=== PATIENT | male | born 1960 | race Caucasian/White ===

== ENCOUNTER 2023-11-23 03:22 | Emergency (ER) | payer OTHER, SELFPAY ==
[2023-11-23 03:26] VITALS: BP 218/102; PULSE 81; RESP 16; TEMP 36.6; O2SAT 97; BMI 27.3
--- NOTE | 2023-11-23 03:39 | ED.MALEGU1 ---
HPI - Male Genitourinary General Chief complaint: Urogenital-Male Stated complaint: URINARY ISSUES Time Seen by Provider: 11/23/23 03:35 Source: patient Mode of arrival: walk-in Limitations: no limitations History of Present Illness HPI Narrative: patient states he has been having problems urinating for the past week. passed blood . Seen by urology and prescribed flomax that seem to help. Tonight urine stream stop but then returned. He then drank water wanting to flush himself but states that was a mistake because now he still can't go and his abdomen is becoming uncomfortable. No vomiting or fever Related Data Home Medications Medication Instructions Recorded Confirmed allopurinol 300 mg tablet 300 mg PO DAILY 11/23/23 11/23/23 omeprazole 40 mg capsule,delayed 40 mg PO DAILY 11/23/23 11/23/23 release sildenafil 100 mg tablet 100 mg PO PRN sexual activity 11/23/23 tamsulosin 0.4 mg capsule 0.4 mg PO Q24H 11/23/23 11/23/23 terbinafine HCl 250 mg tablet 250 mg PO DAILY 11/23/23 11/23/23 vibegron 75 mg tablet (Gemtesa) 75 mg PO DAILY 11/23/23 11/23/23 Allergies Allergy/AdvReac Type Severity Reaction Status Date / Time No Known Drug Allergies Allergy Verified 11/23/23 03:32 Review of Systems ROS Status of ROS 10 or more systems reviewed and unremarkable except as noted in history and below PFSH PFSH Social History Smoking status: Former smoker Exam Constitutional Vital Signs, click to edit/add: Last Vital Signs Temp 97.9 F 11/23/23 03:26 Pulse 81 11/23/23 03:26 Resp 16 11/23/23 03:26 BP 218/102 H 11/23/23 03:26 Pulse Ox 97 11/23/23 03:26 O2 Del Method Room Air 11/23/23 03:26 Common normals: no apparent distress, average body habitus, oriented x3, no limitations, healthy appearing, alert and well nourished Eye Common normals: EOMs intact bilaterally and conjunctivae normal Respiratory Common normals: normal respiratory effort, no retractions, no use of accessory muscles and clear to auscultation bilaterally Cardio Common normals: regular rate, regular rhythm, S1 normal heart sound and S2 normal heart sound GI Common normals: Normal to inspection, nondistended, normoactive bowel sounds present and soft to palpation Other: suprapubic tenderness Extremity Common normals: normal to inspection and full ROM Neuro Common normals: oriented x3, CN's II-XII intact bilaterally, moves all extremities and no focal motor deficits Psych Appearance: grossly normal Course Vital Signs Vital signs: Vital Signs Temperature 97.9 F 11/23/23 03:26 Pulse Rate 81 11/23/23 03:26 Respiratory Rate 16 11/23/23 03:26 Blood Pressure 218/102 H 11/23/23 03:26 Pulse Oximetry 97 11/23/23 03:26 Oxygen Delivery Method Room Air 11/23/23 03:26 Temperature 97.9 F 11/23/23 03:26 Pulse Rate 81 11/23/23 03:26 Respiratory Rate 16 11/23/23 03:26 Blood Pressure 218/102 H 11/23/23 03:26 Pulse Oximetry 97 11/23/23 03:26 Oxygen Delivery Method Room Air 11/23/23 03:26 MDM - Male Genitourinary MDM Narrative Medical decision making narrative: patient followed by Urology. Presents with acute urinary retention. escamilla placed by nursing. UA without evidence of infection,. Patient discharged with catheter in place and is to follow up with his urologist Lab Data Labs: Lab Results 11/23/23 Range/Units 04:00 Urine Color Brown A (YELLOW) Urine Clarity Clear (CLEAR) Urine pH 7.5 (5.0-9.0) Ur Specific [place] <=1.005 A (1.005-1.025) Urine Protein 100 A (NEG/TRACE) mg/dL Urine Glucose (UA) Negative (NEGATIVE) mg/dL Urine Ketones Negative (NEGATIVE) mg/dL Urine Occult Blood Large A (NEGATIVE) Urine Nitrite Negative (NEGATIVE) Urine Bilirubin Negative (NEGATIVE) Urine Urobilinogen 0.2 (0.2-1.0) EU/dL Ur Leukocyte Esterase Trace A (NEGATIVE) Urine RBC 50-75 A (0-2) #/HPF Urine WBC 0-2 A (NONE SEEN) #/HPF Ur Squamous Epith Cells None seen (NONE/RARE) #/LPF Urine Crystals None seen (None Seen) #/HPF Urine Bacteria None seen (NONE SEEN) #/HPF Urine Casts None seen (NONE SEEN) #/LPF Urine Mucus None seen (NONE SEEN) Discharge Plan Discharge Chief Complaint: Urogenital-Male Clinical Impression: Acute urinary retention Patient Disposition: Home, Self-Care Prescriptions / Home Meds: No Action allopurinol 300 mg tablet 300 mg PO DAILY omeprazole 40 mg capsule,delayed release(DR/EC) 40 mg PO DAILY sildenafil 100 mg tablet 100 mg PO PRN (Reason: sexual activity) tamsulosin 0.4 mg capsule 0.4 mg PO Q24H terbinafine HCl 250 mg tablet 250 mg PO DAILY Gemtesa 75 mg tablet 75 mg PO DAILY Instructions: Urinary Retention in Men (ED) Additional Instructions: call Urology for appointment this week Stand Alone Forms: Portal Instructions Referrals: Thomas De Santiago MD [Primary Care Provider] - 1 week
[2023-11-23] MEDS: LIDOCAINE 2% JELLY 10 ML UR (04:08)
[2023-11-23 04:09] LABS: Bilirubin Urine NEGATIVE (NEGATIVE); Blood Urine LARGE (NEGATIVE); Clarity Urine CLEAR (CLEAR); Color Urine BROWN (YELLOW); Glucose Urine UA NEGATIVE (NEGATIVE); Ketones Urine NEGATIVE (NEGATIVE); Leukocyte Esterase Urine TRACE (NEGATIVE); Nitrite Urine NEGATIVE (NEGATIVE); Protein Urine 100 mg/dL (NEG/TRACE); Specific Gravity Urine <=1.005 (1.005-1.025); Urobilinogen Urine 0.2 EU/dL (0.2-1.0); pH Urine 7.5 (5.0-9.0)
[2023-11-23 04:11] LABS: Urine Microscopic Indicated YES
[2023-11-23 04:15] LABS: Bacteria Urine NONE SEEN #/HPF (NONE SEEN); Cast Seen? NONE SEEN #/LPF (NONE SEEN); Crystals Seen? None Seen #/HPF (None Seen); Mucus Urine NONE SEEN (NONE SEEN); RBC Urine 50-75 #/HPF (0-2); Squamous Epithelial Cell Urine NONE SEEN #/LPF (NONE/RARE); WBC Urine 0-2 #/HPF (NONE SEEN)
--- NOTE | 2023-11-23 04:21 | PC.NURSE ---
patient was bladder scanned upon arrival to ED. scan showed nearly 800ml. Initial output of escamilla was 1100ml clear, red urine with occasional small clots. Sample was obtained and sent to lab.
[2023-11-23 04:52] VITALS: BP 151/90
== END 2023-11-23 04:55 | disposition home or self-care (01) ==
PROVIDERS: Emergency Provider Internal Medicine; PCP Family Medicine
DX: R33.9 Retention of urine, unspecified (principal); Z79.899 Other long term (current) drug therapy; Z87.891 Personal history of nicotine dependence
CPT/HCPCS: 51702; 51798; 81001; 99284

== ENCOUNTER 2023-12-14 07:10 | Outpatient (OUT) | payer OTHER, SELFPAY ==
--- OUTSIDE RECORDS SUMMARY | 2023-12-11 08:46 | XMS_ITS | CCD ---
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 Phone ARIE MARYLIN Unavailable Unavailable ARIE, MARYLIN Unavailable Unavailable ARIE, MARYLIN Unavailable Unavailable THOMAS LAMAR Unavailable Unavailable THOMAS LAMAR Primary Care Unavailable ESTEFANI, DAVEY Admitting Unavailable JARA, DAVEY Consulting Unavailable JARA, DAVEY Attending Unavailable THOMAS LAMRA Consulting Unavailable THOMAS LAMAR Attending Unavailable THOMAS LAMAR Admitting Unavailable DANICA MUNROE Admitting Unavailable DANICA MUNROE Consulting Unavailable DANICA MUNROE Attending Unavailable Thomas Lamar Primary Care Physician THOMAS LAMAR Primary Care Unavailable AMRIK MUNROE Attending Unavailable Orzech, Jerica X Admitting Unavailable Orzoraida, Jerica Ojeda Attending Unavailable Rafael Powell Attending Unavailable SALAMDanny Attending Unavailable Rafael Powell Referring Unavailable Garima Eastman Attending Unavailable JARA, Davey Hoover Attending Unavailable Orzech, Jerica X Attending Unavailable JARA, Davey R Attending Unavailable JARA, Davey R Attending Unavailable JARA, Davey R Attending Unavailable JARA, Davey R Attending Unavailable SALAMDanny Admitting Unavailable SALAM, Danny Attending Unavailable SALAM, Delgado Referring Unavailable JARA, Davey R Admitting Unavailable JARA, Davey R Attending Unavailable ROSALINDA CHAPMAN Admitting Unavailable ROSALINDA CHAPMAN Attending Unavailable Allergies Allergy Classification Reported Allergen(s) Allergy Type Date of Onset Reaction(s) Facility (2 sources) Ciprofloxacin; Translations: [ciprofloxacin] Drug Allergy Unknown [facility] Medications Current Medications Medication Drug Class(es) Dates Sig (Normalized) Sig (Original) aspirin 81 mg oral tablet (9 sources) Platelet Aggregation Inhibitor, Nonsteroidal Anti-inflammatory Drug Start: 08-07-2019 take 1 tablet by mouth once daily aspirin 81 mg oral tablet 81 mg = 1 tab(s), Oral, Daily Start Date: 08/07/19 Status: Ordered 24 hr mirabegron 50 mg extended release oral tablet (2 sources) beta3-Adrenergic Agonist Start: 04-27-2023 take 1 tablet by mouth once daily Myrbetriq 50 mg oral tablet, extended release 50 mg = 1 tab(s), Oral, Daily, # 90 tab(s), Refills(s) 3, Pharmacy: [facility], 178, cm, 02/18/23 13:55:00 EDT, Height/Length Dosing, 86.5, kg, 02/18/23 13:55:00 EDT, Weight Dosing Start Date: 04/27/23 Status: Ordered Multivitamin preparation (6 sources) Start: 09-24-2023 multivitamin Refill(s) 0 Start Date: 09/24/23 Status: Ordered omeprazole 40 mg delayed release oral capsule (2 sources) Proton Pump Inhibitor Start: 05-05-2023 take 1 capsule by mouth once daily omeprazole 40 mg Cap-DR 40 mg = 1 cap(s), Oral, Daily, # 30 cap(s), Refills(s) 2, [id number] 178, cm, 05/05/23 8:17:00 EDT, Height/Length Dosing, 87, kg, 05/05/23 8:17:00 EDT, Weight Dosing Start Date: 05/05/23 Status: Ordered polyethylene glycol 3350 917333 mg / potassium chloride 1480 mg / sodium bicarbonate 5720 mg / sodium chloride 00821 mg powder for oral solution (2 sources) Osmotic Laxative Start: 07-12-2023 take 2 doses by mouth every other day NuLYTELY Jama oral powder for reconstitution See Instructions, 2 EA, Refill(s) 0, 2 day colon prep., [id number] 178, cm, 07/12/23 14:08:00 EDT, Height/Length Dosing, 87.5, kg, 07/12/23 14:08:00 EDT, Weight Dosing Start Date: 07/12/23 Status: Ordered Start: 05-05-2023 NuLYTELY Cherr y oral powder for reconstitution See Instructions, 1 EA, Refill(s) 0, See physician instructions prior to procedure., [facility] #[id number], 178, cm, 05/05/23 8:17:00 EDT, Height/Length Dosing, 87, kg, 05/05/23 8:17:00 EDT, Weight Dosing Start Date: 05/05/23 Status: Ordered sildenafil 100 mg oral tablet (9 sources) Phosphodiesterase 5 Inhibitor Start: 09-24-2023 sildenafil 100 mg Ta b 100 mg = 1 tab(s), Oral, As Directed, 1 hour before sexual activity, # 30 tab(s), Refills(s) 3, [id number], 177, cm, 09/24/23 8:19:00 EDT, Height/Length Dosing, 86.5, kg, 09/24/23 8:19:00 EDT, Weight Dosing Start Date: 09/24/23 Status: Ordered Start: 09-22-2021 sildenafil 100 mg Tab 100 mg = 1 tab(s), Oral, As Directed, 1 hour before sexual activity, # 30 tab(s), Refills(s) 2, Pharmacy: [id number], 177, cm, 09/22/21 14:37:00 EDT, Height/Length Dosing, 87, kg, 09/22/21 14:37:00 EDT, Weight Dosing Start Date: 09/22/21 Status: Ordered tamsulosin hydrochloride 0.4 mg oral capsule (3 sources) alpha-Adrenergic Radames Start: 11-16-2023 End: 12-16-2023 take 1 capsule by mouth once daily tamsulosin 0.4 mg Cap 0.4 mg = 1 cap(s), Oral, Daily, X 30 day(s), # 30 cap(s), Refills(s) 0, Pharmacy: [facility]/pharmacy #[id number], 177, cm, 11/11/23 8:06:00 EST, Height/Length Dosing, 86.5, kg, 11/11/23 8:06:00 EST, Weight Dosing Start Date: 11/16/23 Stop Date: 12/16/23 Status: Ordered terbinafine 250 mg oral tablet (3 sources) Allylamine Antifungal Start: 11-11-2023 terbinafine 250 mg Tab Refills(s) 0 Start Date: 11/11/23 Status: Ordered vibegron 75 MG Oral Tablet [Gemtesa] (9 sources) Start: 09-09-2023 End: 09-03-2024 take 1 tablet by mouth once daily Gemtesa 75 mg oral tablet 75 mg = 1 tab(s), Oral, Daily, X 90 day(s), # 90 tab(s), Refills(s) 3, Pharmacy: [facility], 178, cm, 07/12/23 14:08:00 EDT, Height/Length Dosing, 87.5, kg, 07/12/23 14:08:00 EDT, Weight Dosing Start Date: 09/09/23 Stop Date: 09/03/24 Status: Ordered Start: 04-28-2023 End: 04-22-2024 take 1 tablet by mouth once daily Gemtesa 75 mg oral tablet 75 mg = 1 tab(s), Oral, Daily, X 90 day(s), # 90 tab(s), Refills(s) 3, Pharmacy: [facility]/pharmacy #[id number], 178, cm, 02/18/23 13:55:00 EDT, Height/Length Dosing, 86.5, kg, 02/18/23 13:55:00 EDT, Weight Dosing Start Date: 04/28/23 Stop Date: 04/22/24 Status: Ordered Start: 08-31-2022 End: 08-26-2023 take 1 tablet by mouth once daily Gemtesa 75 mg oral tablet 75 mg = 1 tab(s), Oral, Daily, X 90 day(s), # 90 tab(s), Refills(s) 3, Pharmacy: [facility], 177, cm, 09/22/21 14:37:00 EDT, Height/Length Dosing, 87, kg, 09/22/21 14:37:00 EDT, Weight Dosing Start Date: 08/31/22 Stop Date: 08/26/23 Status: Ordered Completed/Discontinued Medications Medication Drug Class(es) Dates Sig (Normalized) Sig (Original) allopurinol 100 mg oral tablet (9 sources) Xanthine Oxidase Inhibitor Start: 09-28-2022 take 1 tablet by mouth once daily allopurinol 100 mg Tab 30 EA, TAKE 1 TABLET BY MOUTH EVERY DAY, Refills(s) 0 Start Date: 09/28/22 Status: Ordered cephalexin 500 mg oral capsule (2 sources) Cephalosporin Antibacterial Start: 09-28-2022 take 1 capsule by mouth once daily Keflex 500 mg Cap 500 mg = 1 cap(s), Oral, Daily, Take 1 tab day before procedure and 1 after procedure, # 2 cap(s), Refills(s) 0, Pharmacy: [facility]/pharm[facility] #[id number], 177, cm, 09/28/22 14:37:00 EDT, Height/Length Dosing, 87, kg, 09/28/22 14:37:00 EDT, Weight Dosing Start Date: 09/28/22 Status: Ordered ciprofloxacin 500 mg oral tablet (3 sources) Quinolone Antimicrobial Start: 11-26-2023 Cipro 500 mg Tab 500 mg = 1 tab(s), Oral, As Directed, Take 1 pill the day before procedure, then 1 pill after the procedure., # 2 tab(s), Refills(s) 0, Pharmacy: [facility] #[id number], 177, cm, 11/11/23 8:06:00 EST, Height/Length Dosing, 86.5, kg, 11/11/23 8:06:00 EST, Weight Dosing Start Date: 11/26/23 Status: Ordered Problems Active Problems Problem Classification Problem Date Documented Da te Episodic/Chronic Allergic reactions (9 sources) Eczema 07-12-2019 Episodic Anxiety disorders (9 sources) Panic attack 07-12-2019 Chronic Cancer of bladder (2 sources) History of malignant neoplasm of bladder; Translations: [Personal history of malignant neoplasm of bladder] Onset: 3 Episodic Cancer; other and unspecified primary (9 sources) History of bladder neoplasm 01-27-2021 Episodic Diabetes mellitus with complications (9 sources) Erectile dysfunction due to type 2 diabetes mellitus 01-27-2021 Chronic Esophageal disorders (9 sources) Ulcer of esophagus; Translations: [Ulcer of esophagus without bleeding] Onset: 3 Chronic Genitourinary symptoms and ill-defined conditions (17 sources) Urgent desire to urinate; Translations: [Jace hematuria] Onset: 3 07-12-2019 Episodic Gout and other crystal arthropathies (9 sources) Gout 07-12-2019 Chronic Hemorrhoids (9 sources) Hemorrhoids 07-12-2019 Episodic Hyperplasia of prostate (12 sources) Benign prostatic hypertrophy with outflow obstruction; Translations: [Benign prostatic hyperplasia with lower urinary tract symptoms] Onset: 3 11-19-2020 Chronic Other aftercare (1 source) Long-term current use of anticoagulant; Translations: [FCI (current) use of anticoagulants] Onset: 3 Episodic Other diseases of bladder and urethra (9 sources) Urethral stricture 07-12-2019 Episodic Other diseases of kidney and ureters (1 source) Urinary tract obstruction; Translations: [Other obstructive and reflux uropathy] Onset: 3 Episodic Other endocrine disorders (4 sources) Testicular hypofunction; Translations: [TESTICULAR HYPOFUNCTION] Onset: 1 Chronic Other gastrointestinal disorders (1 source) H/O: gastrointestinal disease; Translations: [Personal history of other diseases of the digestive system] Onset: 3 Episodic Other gastrointestinal disorders (7 sources) History of esophageal ulcer 07-12-2023 Episodic Other injuries and conditions due to external causes (1 source) Foreign body in digestive tract; Translations: [Foreign body of alimentary tract, part unspecified, initial encounter] Onset: 3 Episodic Other male genital disorders (2 sources) Male erectile dysfunction, unspecified; Translations: [Erectile dysfunction] Onset: 3 Chronic Other nutritional; endocrine; and metabolic disorders (9 sources) Body mass index 25-29 - overweight 11-19-2020 Episodic Other screening for suspected conditions (not mental disorders or infectious disease) (13 sources) Raised prostate specific antigen; Translations: [Screening for malignant neoplasm of colon done] Onset: 3 10-31-2019 Episodic Residual codes; unclassified (9 sources) Sleep apnea 07-12-2019 Chronic Residual codes; unclassified (9 sources) Reduced libido 01-27-2021 Episodic Retinal detachments; defects; vascular occlusion; and retinopathy (9 sources) 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 Unclassified (2 sources) Unknown / UNK(Unknown) Onset: 7 Unclassified (9 sources) Drug therapy finding 10-31-2019 Unclassified (8 sources) Patient encounter status 05-05-2023 Past or Other Problems Problem Classification Problem Date Documented Da te Episodic/Chronic Fracture of lower limb (4 sources) Displaced fracture of distal phalanx of right great toe, subsequent encounter for fracture with routine healing; Translations: [DISP FX OF DIST PHALANX OF R GREAT TOE, 7THD] Onset: 08-19-2017 Episodic Immunizations and screening for infectious disease (8 sources) Contact with and (suspected) exposure to other viral communicable diseases; Translations: [Encounter for screening for other viral diseases] Onset: 08-09-2020 Episodic Results Test Name Value Interpretation Reference Range Facility [facility] Fish and Urine Cyt o ([facility])on 12-07-2023 UVFISH & UC Diagnosis Info Invalid Interpretation Code [facility] Comment on above: Result Comment: A:Ur ine,Urine:Voided Diagnosis Summary - No evidence of high grade urothelial carcinoma identified. Adequate cellularity for evaluation. Diagnosis Summary - The [facility] FISH study detected normal copy numbers for chromosomes 3, 7, 17, and 9p21. 84 cells were analyzed in this evaluation. No evidence of aneuploidy for chromosomes 3, 7, or 17 or deletion of the 9p21 locus was found in cells present in this specimen. This test does not rule out the possibility of a low grade non-invasive papillary urothelial carcinoma. These findings should be correlated with cytology and cystoscopy results.* CPT 11154, 48763. Microscopic Notes - Microscopic Notes - Abnormal cells 9p21 deletions: Abnormal cells aneploid events: Total cells analyzed: 84 Hematuria: Gross Description Site ID:A color Yellow fixative Alcohol Received 110 mls of clear yellow fluid with the patient's name and, Urine on the vial. Electronically signed by : on: 12/07/2023 08:46:27 Performed By: #### 1 [id number] #### [facility] [address] [place] [address] Consent for Procedure/Surger yon 12-01-2023 Consent for Procedure/Surgery [id number] Normal [facility] Ambulatory Visit Summaryon 0 11-30-2023 Ambulatory Visit Summary RENA LEDESMA :1960 Visit Date:11/30/2023 Ambulatory Visit Instructions Your Diagnosis Gross hematuria Urinary retention Personal history of bladder cancer BPH with urinary obstruction Anticoagulated Erectile dysfunction Elevated PSA Other obstructive and reflux uropathy Your Care Team Attending Physician - Davey JARA MD Primary Care Physician - Thomas Lamar MD This Is Your Medications List tamsulosin (tamsulosin 0.4 mg Cap) vibegron (Gemtesa 75 mg oral tablet) Contact prescribing physician if questions or concerns allopurinol (allopurinol 100 mg Tab) aspirin (aspirin 81 mg oral tablet) ciprofloxacin (Cipro 500 mg Tab) multivitamin sildenafil (sildenafil 100 mg Tab) terbinafine (terbinafine 250 mg Tab) Procedures Performed Colonoscopy (06/18/2023), Esophagogastroduodenoscopy (06/18/2023), Cystoscopy (11/10/2022), Cystoscope (11/19/2020), cysto (10/31/2019), Transrectal biopsy of prostate using ultrasound (US) guidance (08/22/2019), Cystoscopy (11/08/2018), Cystoscopy and transurethral biopsy of bladder (01/10/2015), Transurethral resection of prostate (01/10/2015), Cystoscopy (12/17/2014), Urodynamics (12/05/2014), Colonoscopy, Cystoscopy, Nose - repair or plastic operation, Tonsillectomy. Discharge Vitals Height 177 cm Height 70 in Weight 86.5 kg Weight 190.3 lb BMI 27.61 What to do next Scheduled Follow-Up Appointments Wednesday 8:00 AM EDT With: Davey JARA MD Where: [facility] Patient Educationon 11-30-19 Patient Education Urology Benign Prostatic Hyperplasia Benign prostatic hyperplasia (BPH) is an enlarged prostate gland that is caused by the normal aging process. The prostate may get bigger as a man gets older. The condition is not caused by cancer. The prostate is a walnut-sized gland that is involved in the production of semen. It is located in front of the rectum and below the bladder. The bladder stores urine. The urethra carries stored urine out of the body. An enlarged prostate can press on the urethra. This can make it harder to pass urine. The buildup of urine in the bladder can cause infection. Back pressure and infection may progress to bladder damage and kidney (renal) failure. What are the causes? This condition is part of the normal aging process. However, not all men develop problems from this condition. If the prostate enlarges away from the urethra, urine flow will not be blocked. If it enlarges toward the urethra and compresses it, there will be problems passing urine. What increases the risk? This condition is more likely to develop in men older than 50 years. What are the signs or symptoms? Symptoms of this condition include: ? Getting up often during the night to urinate. ? Needing to urinate frequently during the day. ? Difficulty starting urine flow. ? Decrease in size and strength of your urine stream. ? Leaking (dribbling) after urinating. ? Inability to pass urine. This needs immediate treatment. ? Inability to completely empty your bladder. ? Pain when you pass urine. This is more common if there is also an infection. ? Urinary tract infection (UTI). How is this diagnosed? This condition is diagnosed based on your medical history, a physical exam, and your symptoms. Tests will also be done, such as: ? A post-void bladder scan. This measures any amount of urine that may remain in your bladder after you finish urinating. ? A digital rectal exam. In a rectal exam, your health care provider checks your prostate by putting a lubricated, gloved finger into your rectum to feel the back of your prostate gland. This exam detects the size of your gland and any abnormal lumps or growths. ? An exam of your urine (urinalysis). ? A prostate specific antigen (PSA) screening. This is a blood test used to screen for prostate cancer. ? An ultrasound. This test uses sound waves to electronically produce a picture of your prostate gland. Your health care provider may refer you to a specialist in kidney and prostate diseases (urologist). How is this treated? Once symptoms begin, your health care provider will monitor your condition (active surveillance or watchful waiting). Treatment for this condition will depend on the severity of your condition. Treatment may include: ? Observation and yearly exams. This may be the only treatment needed if your condition and symptoms are mild. ? Medicines to relieve your symptoms, including: ? Medicines to shrink the prostate. ? Medicines to relax the muscle of the prostate. ? Surgery in severe cases. Surgery may include: ? Prostatectomy. In this procedure, the prostate tissue is removed completely through an open incision or with a laparoscope or robotics. ? Transurethral resection of the prostate (TURP). In this procedure, a tool is inserted through the opening at the tip of the penis (urethra). It is used to cut away tissue of the inner core of the prostate. The pieces are removed through the same opening of the penis. This removes the blockage. ? Transurethral incision (TUIP). In this procedure, small cuts are made in the prostate. This lessens the prostate's pressure on the urethra. ? Transurethral microwave thermotherapy (TUMT). This procedure uses microwaves to create heat. The heat destroys and removes a small amount of prostate tissue. ? Transurethral needle ablation (TUNA). This procedure uses radio frequencies to destroy and remove a small amount of prostate tissue. ? Interstitial laser coagulation (ILC). This procedure uses a laser to destroy and remove a small amount of prostate tissue. ? Transurethral electrovaporization (TUVP). This procedure uses electrodes to destroy and remove a small amount of prostate tissue. ? Prostatic urethral lift. This procedure inserts an implant to push the lobes of the prostate away from the urethra. Follow these instructions at home: ? Take [id number]-ueblpss and prescription medicines only as told by your health care provider. ? Monitor your symptoms for any changes. Contact your health care provider with any changes. ? Avoid drinking large amounts of liquid before going to bed or out in public. ? Avoid or reduce how much caffeine or alcohol you drink. ? Give yourself time when you urinate. ? Keep all follow-up visits. This is important. Contact a health care provider if: ? You have unexplained back pain. ? Your symptoms do not get better with treatment. ? You develop side effects from the medicine (more content not included)... Normal [facility] U[facility] Fish and Urine Cyt o ([facility])on 11-30-2023 [facility] Method of Extraction Voided Normal [facility] Comment on above: Performed By: #### 1 [id number] #### [facility] [address] [place] [address] [facility] Number of Jars 1 Invalid Interpretation Code [facility] Comment on above: Performed By: #### 1 [id number] #### [facility] [address] [place] [address] [facility] Specimen Urine Normal [facility] Comment on above: Performed By: #### 1 [id number] #### [facility] [address] [place] [address] [facility] Type of Service Technical Only Normal [facility] Comment on above: Performed By: #### 1 [id number] #### [facility] [address] [place] [address] Urology Office/Clinic Noteon 11-30-2023 Urology Office/Clinic Note Chief Complaint Cysto HPI Staff 63 year old male here for Cysto. History of Present Illness Tests reviewed: none. I have reviewed the previous health record information and history for this patient from . I have reviewed and verified the staff HPI to be accurate for this encounter. There have been no associated fever, chills, flank pain, or blood in the urine. Denies any urinary infections since last encounter. Review of Systems PHQ Score Initial Depression Screen Score: 0 SCORE ROS - Provider Constitutional: denies weight loss, denies hot flashes. Eyes: denies eye problems. Gastrointestinal: denies nausea, denies vomiting. Cardiovascular: denies chest pain or angina. Integumentary: no dryness Musculoskeletal: denies musculoskeletal symptoms. ENMT: denies otolaryngeal symptoms. Respiratory: no shortness of breath. Heme/Lymph: denies easy bleeding tendency, denies easy bruising tendency. Psychiatric: no confusion, no anxiety. Genitourinary: See HPI. Physical Exam Vitals & Measurements HT: 70 in HT: 177 cm WT: 86.5 kg WT: 190.3 lb BMI: 27.61 General Appearance: alert, no distress, well nourished, well developed male. Procedure Operative Information Anesthesia Type: Local Procedure: Local Cystoscopy Complications: None Surgical risks, benefits, details of the procedure have been explained to the patient. Full informed consent has been obtained. Intraoperative Information Prepped: Patient is brought back to the endoscopy suite. Patient is placed in supine position. Patient prepped in the usual fashion with Betadine solution. 2% Xylocaine Jelly is placed per Urethra. After waiting several minutes, the Cystoscope is introduced. The Urethra is: Tight The Prostatic Urethra is: bilobar obstruction, short The Bladder: Normal, no tumors, no stones, well healed scar from previous bladder tumor Trabeculated: None (0) The Ureteral orifices: Show efflux of clear urine Specimens Removed: Voided specimen sent for FISH and Cytology test Removal: Cystoscope is removed. The patient tolerated it well. Postoperative Information Patient is discharged home with antibiotic coverage. Follow up arranged. Assessment/Plan 1. Gross hematuria (R31.0: Gross hematuria) Patient experienced an episode of gross hematuria 1 week ago that cleared throughout the day. He does note eating beets the day prior, so decided not to call initially. Had recurrence of hematuria 4 days later. Also notes hematuria the last two mornings with passing of very small clots, clears after 2-3 voids and increased water intake. ?passed ureteral stone? Denies any urinary symptoms. Does admit to mild bilateral groin pressure, not increased on palpation. No testicular or epididymal pain to palpation. Prostate is nontender, benign feeling. No hx of renal stones, nontender flanks. UCX 11/09/23 - negative Pt had IO cysto without complications today. Pt took prophylactic abx prior to procedure. Will send voided specimen for FISH/cytol and call pt if positive. Cysto today was negative for suspicious bladder lesions. Follow up as scheduled. All questions/concerns were discussed. Pt to call the office if he encounters any issues prior. Pt acknowledges understanding. -See #2 and Procedure Documentation. -Pt is to get a CT scan done soon at [facility]. Will call pt with results. 2. Urinary retention (R33.9: Retention of urine, unspecified) Pt had called into the office on 11/23/23 stating he had gone to [facility] ER that morning due to not being able to void, ER note states his initial PVR was 800mL, and had an initial urine output with zuniga placed of 1100mL, clear, red urine with small clots. Pt called into the office again that same day stating he had been experiencing blood clots again, and he had not been drinking a lot of fluids. Pt was advised pt to increase his fluid intake to help irrigate his bladder. Pt had also stated he was experiencing bladder spasms and was afraid to drink more fluids due to the pressure and leaking. PVR 38 cc (at prior OV) [facility] ER Visit 11/23/23 - c/o retention, d/c with zuniga, no imaging, negative culture Zuniga was removed IO on 11/26/23. -See #1 and Procedure Documentation 3. Personal history of bladder cancer (Z85.51: Personal history of malignant neoplasm of bladder) S/p TURBT 12/2014 Most recent cysto 11/10/22 negative, moderate trabeculation most recent FISH/cytol 11/10/22 negative -See #1 and Procedure Documentation 4. BPH with urinary obstruction (N40.1: Benign prostatic hyperplasia with lower urinary tract symptoms) IPSS 9 S/p TURP 12/2014 Previously on Myrbetriq, but insurance stopped covering medication. Switched to Gemtesa 75 mg QD, which patient is happy with. Denies SEs with Gemtesa, tolerating well. Continue current dose. Call for refills. 5. Anticoagulated (Z79.01: [employer] (current) use of anticoagulants) Takes 81 mg ASA daily. 6. Erectile dysfunction (N52.9: Male erect (more content not included)... Normal [facility] Comment on above: Result Comment: Elec tronically Signed By: Davey JARA MD\.br\Date and Time Signed: 11/30/23 14:10 EST\.br\Electronically Co-Signed By: Cristal Dunn\.br\Date and Time Co-Signed: 11/30/23 14:08 EST Ambulatory Visit Summaryon 1 Ambulatory Visit Summary RENA LEDESMA :1960 Visit Date:11/26/2023 Ambulatory Visit Instructions Your Care Team Attending Physician - Davey JARA MD Primary Care Physician - Thomas Lamar MD This Is Your Medications List allopurinol (allopurinol 100 mg Tab) aspirin (aspirin 81 mg oral tablet) multivitamin sildenafil (sildenafil 100 mg Tab) tamsulosin (tamsulosin 0.4 mg Cap) terbinafine (terbinafine 250 mg Tab) vibegron (Gemtesa 75 mg oral tablet) Procedures Performed Colonoscopy (06/18/2023), Esophagogastroduodenoscopy (06/18/2023), Cystoscopy (11/10/2022), Cystoscope (11/19/2020), cysto (10/31/2019), Transrectal biopsy of prostate using ultrasound (US) guidance (08/22/2019), Cystoscopy (11/08/2018), Cystoscopy and transurethral biopsy of bladder (01/10/2015), Transurethral resection of prostate (01/10/2015), Cystoscopy (12/17/2014), Urodynamics (12/05/2014), Colonoscopy, Cystoscopy, Nose - repair or plastic operation, Tonsillectomy. What to do next Scheduled Follow-Up Appointments Wednesday 1:15 PM EST With: ESTEFANI WILLIAMSON, Davey Hoover Where: [facility] [address] [place] [address] [place] [address]- \.br \ Medications\ .br\ What How Much When Why Instructions \.br\ Unchanged allopurinol (allopurinol 100 mg Tab) 30 EA, TAKE 1 TABLET BY MOUTH EVERY DAY \.br\ Unchanged aspirin (aspirin 81 mg oral tablet) 1 Tablets By Mouth Every day\.br\ Unchanged multivitamin \.br\ Unchanged sildenafil (sildenafil 100 mg Tab) 1 Tablets By Mouth As Directed Erectile dysfunction 1 hour before sexual activity \.br\ Unchanged tamsulosin (tamsulosin 0.4 mg Cap) 1 Capsules By Mouth Every day Duration: 30 Days\.br\ Unchanged terbinafine (terbinafine 250 mg Tab)\.br\ Unchanged vibegron (Gemtesa 75 mg oral tablet) 1 Tablets By Mouth Every day Duration: 90 Days\.br\ Allergies\.b r\ No Known Allergies\.b r\ Problems\.br \ Ongoing - Any problem that you are currently receiving treatment for.\.br\ Anticoagulat ed\.br\ BMI 27.0-27.9,ad ult\.br\ BPH with urinary obstruction\ .br\ Decreased sex drive\.br\ Eczema\.br\ Elevated PSA\.br\ Erectile dysfunction\ .br\ Gout\.br\ Gross hematuria\.b r\ Hemorrhoids\ .br\ History of esophageal ulcer\.br\ Other membranous urethral stricture, male\.br\ Panic attack\.br\ Personal history of bladder cancer\.br\ Retinal hemorrhage\. br\ Screen for colon cancer\.br\ Sleep apnea\.br\ Urinary retention\.b r\ Urinary urgency\.br\ Historical - Any problem that you are no longer receiving treatment for.\.br\ Ulcer of esophagus\.b r\ Patient Survey\.br\ You may receive a survey via text or e-mail asking about your office visit. Please share your experience with us by completing your survey. We appreciate your feedback and thank you for choosing us for your care.\.br\ \.br \ [facility] Provider Letteron 11-26-2023 Provider Letter (Inserted Image. Shannan ble to display) November 26, 2023 RENA LEDESMA [address] [place] [address] : 1960 To Whom It May Concern, Please excuse above patient from work. Date of Illness: From: _11/23/23 To: _11/29/22 May Return to Work On:11/30/22 Restrictions: _None Sincerely, Dr. Davey Jara MD [facility] [address] [facility] [place] [address] Normal [facility] UroVysion Fish and Urine Cyt o ([facility])on 11-17-2023 UVFISH & UC Diagnosis Info Invalid Interpretation Code [facility] Comment on above: Result Comment: A:Ur ine,Urine:Voided Diagnosis Summary - Rare atypical urothelial cells with degenerative changes, favor reactive changes. Adequate cellularity for evaluation. Diagnosis Summary - The UroVysion FISH study detected normal copy numbers for chromosomes 3, 7, 17, and 9p21. 36 cells were analyzed in this evaluation. No evidence of aneuploidy for chromosomes 3, 7, or 17 or deletion of the 9p21 locus was found in cells present in this specimen. This test does not rule out the possibility of a low grade non-invasive papillary urothelial carcinoma. These findings should be correlated with cytology and cystoscopy results.* CPT 00539, 89842 Microscopic Notes - Microscopic Notes - Abnormal cells 9p21 deletions: Abnormal cells aneploid events: Total cells analyzed: 36 Hematuria: Gross Description Site ID:A color Yellow fixative Alcohol Received 110 mls of clear yellow fluid with the patient's name and, Urine on the vial. Electronically signed by : on: 11/17/2023 08:51:00 Performed By: #### 1 [id number] ####[facility] [address] [place] [address] Screenson 11-12-2023 Screens [id number] [facility] Ambulatory Visit Summaryon 1 01-12-2023 Ambulatory Visit Summary RENA LEDESMA :1960 Visit Date:11/11/2023 Ambulatory Visit Instructions Your Diagnosis BPH with urinary obstruction Gross hematuria Tests Performed Urnls Dip Stick Auto w/o Microscopy POC 89194 Your Care Team Attending Physician - COLLEEN Giraldo APRN, Jerica Ojeda Primary Care Physician - Thomas Lamar MD This Is Your Medications List allopurinol (allopurinol 100 mg Tab) aspirin (aspirin 81 mg oral tablet) multivitamin sildenafil (sildenafil 100 mg Tab) terbinafine (terbinafine 250 mg Tab) vibegron (Gemtesa 75 mg oral tablet) Procedures Performed Colonoscopy (06/18/2023), Esophagogastroduodenoscopy (06/18/2023), Cystoscopy (11/10/2022), Cystoscope (11/19/2020), cysto (10/31/2019), Transrectal biopsy of prostate using ultrasound (US) guidance (08/22/2019), Cystoscopy (11/08/2018), Cystoscopy and transurethral biopsy of bladder (01/10/2015), Transurethral resection of prostate (01/10/2015), Cystoscopy (12/17/2014), Urodynamics (12/05/2014), Colonoscopy, Cystoscopy, Nose - repair or plastic operation, Tonsillectomy. Discharge Vitals Blood Pressure 142/84 Height 70 in Height 177 cm Weight 190.3 lb Weight 86.5 kg BMI 27.61 What to do next Scheduled Follow-Up Appointments Wednesday 8:00 AM EDT With: ESTEFANI WILLIAMSON, Davey Hoover Where: [facility] C Urineon 11-11-2023 Bacteria identified Cx Nom (U) Microbiology PROCEDURE: Urine Culture [R1] SOURCE: U CleanCatch BODY SITE: COLLECTED DATE/TIME: 11/09/2023 13:20 EST RECEIVED DATE/TIME: 11/09/2023 17:34 EST START DATE/TIME: 11/09/2023 17:34 EST FREE TEXT SOURCE: ROSALINDA CHAPMAN PA-C, PA-C, JENNIFER E FINAL REPORTS Final Report [] Verified Date/Time: 11/11/2023 10:49 EST No growth at 2 days. Performing Locations R1: This test was performed at: [facility], [address] [place] [address], [address] , , [facility] Comment on above: Performed By: #### [id number] ####[facility] [address] [place] [address] Patient Educationon 11-11-20 Patient Education Urology Benign Prostatic Hyperplasia Benign prostatic hyperplasia (BPH) is an enlarged prostate gland that is caused by the normal aging process. The prostate may get bigger as a man gets older. The condition is not caused by cancer. The prostate is a walnut-sized gland that is involved in the production of semen. It is located in front of the rectum and below the bladder. The bladder stores urine. The urethra carries stored urine out of the body. An enlarged prostate can press on the urethra. This can make it harder to pass urine. The buildup of urine in the bladder can cause infection. Back pressure and infection may progress to bladder damage and kidney (renal) failure. What are the causes? This condition is part of the normal aging process. However, not all men develop problems from this condition. If the prostate enlarges away from the urethra, urine flow will not be blocked. If it enlarges toward the urethra and compresses it, there will be problems passing urine. What increases the risk? This condition is more likely to develop in men older than 50 years. What are the signs or symptoms? Symptoms of this condition include: ? Getting up often during the night to urinate. ? Needing to urinate frequently during the day. ? Difficulty starting urine flow. ? Decrease in size and strength of your urine stream. ? Leaking (dribbling) after urinating. ? Inability to pass urine. This needs immediate treatment. ? Inability to completely empty your bladder. ? Pain when you pass urine. This is more common if there is also an infection. ? Urinary tract infection (UTI). How is this diagnosed? This condition is diagnosed based on your medical history, a physical exam, and your symptoms. Tests will also be done, such as: ? A post-void bladder scan. This measures any amount of urine that may remain in your bladder after you finish urinating. ? A digital rectal exam. In a rectal exam, your health care provider checks your prostate by putting a lubricated, gloved finger into your rectum to feel the back of your prostate gland. This exam detects the size of your gland and any abnormal lumps or growths. ? An exam of your urine (urinalysis). ? A prostate specific antigen (PSA) screening. This is a blood test used to screen for prostate cancer. ? An ultrasound. This test uses sound waves to electronically produce a picture of your prostate gland. Your health care provider may refer you to a specialist in kidney and prostate diseases (urologist). How is this treated? Once symptoms begin, your health care provider will monitor your condition (active surveillance or watchful waiting). Treatment for this condition will depend on the severity of your condition. Treatment may include: ? Observation and yearly exams. This may be the only treatment needed if your condition and symptoms are mild. ? Medicines to relieve your symptoms, including: ? Medicines to shrink the prostate. ? Medicines to relax the muscle of the prostate. ? Surgery in severe cases. Surgery may include: ? Prostatectomy. In this procedure, the prostate tissue is removed completely through an open incision or with a laparoscope or robotics. ? Transurethral resection of the prostate (TURP). In this procedure, a tool is inserted through the opening at the tip of the penis (urethra). It is used to cut away tissue of the inner core of the prostate. The pieces are removed through the same opening of the penis. This removes the blockage. ? Transurethral incision (TUIP). In this procedure, small cuts are made in the prostate. This lessens the prostate's pressure on the urethra. ? Transurethral microwave thermotherapy (TUMT). This procedure uses microwaves to create heat. The heat destroys and removes a small amount of prostate tissue. ? Transurethral needle ablation (TUNA). This procedure uses radio frequencies to destroy and remove a small amount of prostate tissue. ? Interstitial laser coagulation (ILC). This procedure uses a laser to destroy and remove a small amount of prostate tissue. ? Transurethral electrovaporization (TUVP). This procedure uses electrodes to destroy and remove a small amount of prostate tissue. ? Prostatic urethral lift. This procedure inserts an implant to push the lobes of the prostate away from the urethra. Follow these instructions at home: ? Take gsrs-heg-tgsioqq and prescription medicines only as told by your health care provider. ? Monitor your symptoms for any changes. Contact your health care provider with any changes. ? Avoid drinking large amounts of liquid before going to bed or out in public. ? Avoid or reduce how much caffeine or alcohol you drink. ? Give yourself time when you urinate. ? Keep all follow-up visits. This is important. Contact a health care provider if: ? You have unexplained back pain. ? Your symptoms do not get better with treatment. ? You develop side effects from the medicine (more content not included)... Normal [facility] UroVysion Fish and Urine Cyt o ([facility])on 11-11-2023 [facility]UC Method of Extraction Voided Normal [facility] Comment on above: Performed By: #### 1 [id number] ####[facility] [address] [place] [address] [facility]UC Number of Jars 1 Invalid Interpretation Code [facility] Comment on above: Performed By: #### 1 [id number] ####[facility] [address] [place] [address] [facility] Specimen Urine Normal [facility] Comment on above: Performed By: #### 1 [id number] ####[facility] [address] [place] [address] [facility] Type of Service Technical Only Normal [facility] Comment on above: Performed By: #### 1 [id number] ####[facility] [address] [place] [address] Urology Office/Clinic Noteon 11-11-2023 Urology Office/Clinic Note Chief Complaint 1 year with PSA HPI Staff Gross hematuria x 1 week. Mild bilateral groin pressure. IPSS 9 Previous DX; Personal hx of bladder cancer, BPH, Elevated PSA, ED Sildenafil 100 mg PVR 38 Dysuria: denies Incomplete bladder emptying: denies Hematuria: (Large on U/A today) Last Wednesday he seen blood and Wednesday then last 2 more mornings he has seen blood Frequency: every couple hours Urgency: denies Nocturia: denies Stream: denies hesitation, weaker side Leaking: denies Post void dripping: denies Wearing pads/ Depends: denies Urge incontinence: denies Stress incontinence: denies Incontinence without Sensory Awareness: denies Abdominal pain: denies Flank pain: denies Sexual complaints: denies History of Present Illness I have reviewed and verified the staff HPI to be accurate for this encounter. Review of Systems PHQ Score Initial Depression Screen Score: 0 SCORE Physical Exam Vitals & Measurements BP: 142/84 HT: 70 in HT: 177 cm WT: 86.5 kg WT: 190.3 lb BMI: 27.61 General: Well developed, well nourished, in no acute distress. Genitourinary: normal scrotum, normal testes, normal urethra, normal epididymis, normal vas deferens/spermatic cord. Non tender to palpation. Flank Pain: none. Bladder: nonpalpable. Penis: normal shaft, normal glans. Prostate: normal prostate, no hard nodule observed. Non tender to palpation. Assessment/Plan 1. Gross hematuria (R31.0: Gross hematuria) Patient experienced an episode of gross hematuria 1 week ago that cleared throughout the day. He does note eating beets the day prior, so decided not to call initially. Had recurrence of hematuria 4 days later. Also notes hematuria the last two mornings with passing of very small clots, clears after 2-3 voids and increased water intake. Denies any urinary symptoms. Does admit to mild bilateral groin pressure, not increased on palpation. No testicular or epididymal pain to palpation. Prostate is nontender, benign feeling. No hx of renal stones, nontender flanks. UCX 11/09/23 prelim negative PVR 38 cc today UA today with large blood, no signs of infection Low suspicion for infection, given exam. Due for cysto/FISH/cytol 10/2024 for bladder CA surveillance. Discussed moving up cysto given current situation - will discuss with PRW and contact patient. Will send FISH/cytol today. ER for inability to urinate for >6-8 hrs. Patient agrees with plan, verbalizes understanding. Ordered: UroVysion Fish and Urine Cyto ([facility]) 2. Personal history of bladder cancer (Z85.51: Personal history of malignant neoplasm of bladder) s/p TURBT 12/2014 Most recent cysto 11/10/22 negative, moderate trabeculation most recent FISH/cytol 11/10/22 negative Ordered: UroVysion Fish and Urine Cyto ([facility]) 3. Anticoagulated (Z79.01: [employer] (current) use of anticoagulants) Takes 81 mg ASA daily. Advise patient to hold this temporarily. Can resume ASA therapy when he goes without hematuria x 48 hrs. Patient verbalized understanding. Ordered: UroVysion Fish and Urine Cyto ([facility]) 4. BPH with urinary obstruction (N40.1: Benign prostatic hyperplasia with lower urinary tract symptoms) IPSS 9 s/p TURP 12/2014 Previously on Myrbetriq, but insurance stopped covering medication. Switched to Gemtesa 75 mg QD, which patient is happy with. Overall, he is happy with urinary patterns, but is very concerned about blood. See #1. Denies SEs with Gemtesa, tolerating well. Continue current dose. Call for refills. Ordered: Urnls Dip Stick Auto w/o Microscopy POC 92391 UroVysion Fish and Urine Cyto ([facility]) 5. Elevated PSA (R97.20: Elevated prostate specific antigen [PSA]) PSA: 07/10/21 - 3.52 06/11/22 - 3.54 07/08/23 - 3.42 S/p neg TRUS/bx 07/2019 [1] SUJATA benign in office today. f/u as scheduled in 1 yr regarding PSA Ordered: UroVysion Fish and Urine Cyto ([facility]) 6. Erectile dysfunction (N52.9: Male erectile dysfunction, unspecified) Sildenafil 100mg prn. Satisfied with current dosage. [2] Not addressed at this visit. Ordered: UroVysion Fish and Urine Cyto ([facility]) Follow-up No qualifying data available Patient Education Benign Prostatic Hyperplasia Hematuria, Adult Erectile Dysfunction Problem List/Past Medical History Ongoing Anticoagulated BMI 27.0-27.9,adult BPH with urinary obstruction Decreased sex drive Eczema Elevated PSA Erectile dysfunction Gout Gross hematuria Hemorrhoids History of esophageal ulcer Other membranous urethral stricture, male Panic attack Personal history of bladder cancer Retinal hemorrhage Screen for colon cancer Sleep apnea Urinary urgency Historical Ulcer of esophagus Procedure/Surgical History Colonoscopy (06/18/2023), Esophagogastroduodenoscopy (06/18/2023), Cystoscopy (11/10/2022), Cystoscope (11/19/2020), cysto (10/31/2019), Transrectal biopsy of prostate using ultrasound (US) (more content not included)... Normal [facility] Comment on above: Result Comment: Elec tronically Signed By: COLLEEN Giraldo APRN, Jerica Ojeda\.br\Date and Time Signed: 11/11/23 10:15 EST Ambulatory Visit Summaryon 1 Ambulatory Visit Summary RENA LEDESMA :1960 Visit Date:09/24/2023 Ambulatory Visit Instructions Your Diagnosis Personal history of bladder cancer BPH with urinary obstruction Elevated PSA Erectile dysfunction Tests Performed Urnls Dip Stick Auto w/o Microscopy POC 43517 Your Care Team Attending Physician - Davey JARA MD Primary Care Physician - Thomas Lamar MD This Is Your Medications List sildenafil (sildenafil 100 mg Tab) vibegron (Gemtesa 75 mg oral tablet) Contact prescribing physician if questions or concerns allopurinol (allopurinol 100 mg Tab) aspirin (aspirin 81 mg oral tablet) multivitamin Procedures Performed Colonoscopy (06/18/2023), Esophagogastroduodenoscopy (06/18/2023), Cystoscopy (11/10/2022), Cystoscope (11/19/2020), cysto (10/31/2019), Transrectal biopsy of prostate using ultrasound (US) guidance (08/22/2019), Cystoscopy (11/08/2018), Cystoscopy and transurethral biopsy of bladder (01/10/2015), Transurethral resection of prostate (01/10/2015), Cystoscopy (12/17/2014), Urodynamics (12/05/2014), Colonoscopy, Cystoscopy, Nose - repair or plastic operation, Tonsillectomy. Discharge Vitals Heart Rate (Peripheral) 68 Respiratory Rate 16 Blood Pressure 133/87 Height 177 cm Height 70 in Weight 86.5 kg Weight 190.3 lb BMI 27.61 What to do next Scheduled Follow-Up Appointments Wednesday 8:00 AM EDT With: Davey JARA MD Where: [facility] Saige Pisano [facility] Patient Educationon -27-20 23 Patient Education Oncology Prostate Cancer Screening Prostate cancer screening is testing that is done to check for the presence of prostate cancer in men. The prostate gland is a walnut-sized gland that is located below the bladder and in front of the rectum in males. The function of the prostate is to add fluid to semen during ejaculation. Prostate cancer is one of the most common types of cancer in men. Who should have prostate cancer screening? Screening recommendations vary based on age and other risk factors, as well as between the professional organizations who make the recommendations. In general, screening is recommended if: ? You are age 50 to 70 and have an average risk for prostate cancer. You should talk with your health care provider about your need for screening and how often screening should be done. Because most prostate cancers are slow growing and will not cause , screening in this age group is generally reserved for men who have a 10- to 15-year life expectancy. ? You are younger than age 50, and you have these risk factors: ? Having a father, brother, or uncle who has been diagnosed with prostate cancer. The risk is higher if your family member's cancer occurred at an early age or if you have multiple family members with prostate cancer at an early age. ? Being a male who is Black or is of [place] or sub-Saharan descent. In general, screening is not recommended if: ? You are younger than age 40. ? You are between the ages of 40 and 49 and you have no risk factors. ? You are 70 years of age or older. At this age, the risks that screening can cause are greater than the benefits that it may provide. If you are at high risk for prostate cancer, your health care provider may recommend that you have screenings more often or that you start screening at a younger age. How is screening for prostate cancer done? The recommended prostate cancer screening test is a blood test called the prostate-specific antigen (PSA) test. PSA is a protein that is made in the prostate. As you age, your prostate naturally produces more PSA. Abnormally high PSA levels may be caused by: ? Prostate cancer. ? An enlarged prostate that is not caused by cancer (benign prostatic hyperplasia, or BPH). This condition is very common in older men. ? A prostate gland infection (prostatitis) or urinary tract infection. ? Certain medicines such as male hormones (like testosterone) or other medicines that raise testosterone levels. A rectal exam may be done as part of prostate cancer screening to help provide information about the size of your prostate gland. When a rectal exam is performed, it should be done after the PSA level is drawn to avoid any effect on the results. Depending on the PSA results, you may need more tests, such as: ? A physical exam to check the size of your prostate gland, if not done as part of screening. ? Blood and imaging tests. ? A procedure to remove tissue samples from your prostate gland for testing (biopsy). This is the only way to know for certain if you have prostate cancer. What are the benefits of prostate cancer screening? ? Screening can help to identify cancer at an early stage, before symptoms start and when the cancer can be treated more easily. ? There is a small chance that screening may lower your risk of dying from prostate cancer. The chance is small because prostate cancer is a slow-growing cancer, and most men with prostate cancer from a different cause. What are the risks of prostate cancer screening? The main risk of prostate cancer screening is diagnosing and treating prostate cancer that would never have caused any symptoms or problems. This is called overdiagnosisand overtreatment. PSA screening cannot tell you if your PSA is high due to cancer or a different cause. A prostate biopsy is the only procedure to diagnose prostate cancer. Even the results of a biopsy may not tell you if your cancer needs to be treated. Slow-growing prostate cancer may not need any treatment other than monitoring, so diagnosing and treating it may cause unnecessary stress or other side effects. Questions to ask your health care provider ? When should I start prostate cancer screening? ? What is my risk for prostate cancer? ? How often do I need screening? ? What type of screening tests do I need? ? How do I get my test results? ? What do my results mean? ? Do I need treatment? Where to find more information ? The [place] [employer]: www.cancer.org ? [employer]: www.auanet.org Contact a health care provider if: ? You have difficulty urinating. ? You have pain when you urinate or ejaculate. ? You have blood in your urine or semen. ? You have pain in your back or in the area of your prostate. Summary ? Prostate cancer is a common type of cancer in men. The prostate gland is located below the bladder and in front of the rectum. This gland adds flu (more content not included)... Normal [facility] Urology Office/Clinic Noteon 09-24-2023 Urology Office/Clinic Note Chief Complaint 1yr PSA HPI Staff 1 year f/u with PSA. Previous dx of personal hx of bladder cancer (TURBT 12/2014), BPH with urinary obstruction, elevated PSA and ED. Current PSA done 07/08/23 is 3.42 and previous done 06/11/22 was 3.54. Pt continues taking Gemtesa 75mg QD and Sildenafil 100mg PRN. Denies urinary concerns at this time. Is satisfied with Gemtesa & Sildenafil therapy. There is a reminder in pt's chart for next Cysto 2023 History of Present Illness Tests reviewed: Reviewed UA and PSA. I have reviewed the previous health record information and history for this patient from Dr. Jara. I have reviewed and verified the staff HPI to be accurate for this encounter. There have been no associated fever, chills, flank pain, or blood in the urine. Denies any urinary infections since last encounter. Review of Systems PHQ Score Initial Depression Screen Score: 0 ROS - Provider Constitutional: denies weight loss, denies hot flashes. Eyes: denies eye problems. Gastrointestinal: denies nausea, denies vomiting. Cardiovascular: denies chest pain or angina. Integumentary: no dryness Musculoskeletal: denies musculoskeletal symptoms. ENMT: denies otolaryngeal symptoms. Respiratory: no shortness of breath. Heme/Lymph: denies easy bleeding tendency, denies easy bruising tendency. Psychiatric: no confusion, no anxiety. Genitourinary: See HPI. Physical Exam Vitals & Measurements HR: 68(Peripheral) RR: 16 BP: 133/87 HT: 70 in HT: 177 cm WT: 86.5 kg WT: 190.3 lb BMI: 27.61 General Appearance: alert, no distress, well nourished, well developed male. Genitourinary: normal scrotum, normal testes, normal urethra, normal epididymis, normal vas deferens/spermatic cord. Flank Pain: none. Bladder: nonpalpable. Prostate: normal prostate, estimated weight 40 gms, no hard nodule observed. Assessment/Plan Has previously seen MILDRED in the past. 1. Personal history of bladder cancer (Z85.51: Personal history of malignant neoplasm of bladder) S/p TURBT 12/2014. S/p cysto 11/10/22 neg for b.t. or stones. Moderate trabeculation (2). FISH/cytol neg. -Cysto/FISH/cytol due 10/2024 -Reminder in chart 2. BPH with urinary obstruction (N40.1: Benign prostatic hyperplasia with lower urinary tract symptoms) Previously was taking Myrbetriq but insurance stopped covering medication. Pt continues Gemtesa 75mg qd. UA today unremarkable. Denies any urinary concerns. Good stream and emptying well. Frequency is controlled. Happy w/ Gemtesa, states it is affordable through [employer] if it's a 90 day supply. -Call for refills 3. Elevated PSA (R97.20: Elevated prostate specific antigen [PSA]) PSA: 07/10/21 - 3.52 06/11/22 - 3.54 07/08/23 - 3.42 S/p neg TRUS/bx 07/2019 SUJATA today: 40g, benign. -Cont to monitor PSA -Due in 1 year 4. Erectile dysfunction (N52.9: Male erectile dysfunction, unspecified) Sildenafil 100mg prn. Satisfied with current dosage. -Refill sent to [facility] in [place] due to cost Follow-up With When Contact Information ESTEFANI WILLIAMSON, Davey Hoover, [address] [place] [address]- Additional Instructions: 1 year w/ PSA Patient Education Prostate Cancer Screening ICorrie, personally scribed for Dr. Jara on 09/24/2023 08:46:13. . Documentation recorded by the scribe, Corrie Mendoza, accurately reflects the services(s) I performed and decisions made by me. Authenticated by Dr. Jara on 09/24/2023 08:51:31. Problem List/Past Medical History Ongoing Anticoagulated BMI 27.0-27.9,adult BPH with urinary obstruction Decreased sex drive Eczema Elevated PSA Erectile dysfunction Gout Hemorrhoids History of esophageal ulcer Other membranous urethral stricture, male Panic attack Personal history of bladder cancer Retinal hemorrhage Screen for colon cancer Sleep apnea Urinary urgency Historical Ulcer of esophagus Procedure/Surgical History Colonoscopy (06/18/2023), Esophagogastroduodenoscopy (06/18/2023), Cystoscopy (11/10/2022), Cystoscope (11/19/2020), cysto (10/31/2019), Transrectal biopsy of prostate using ultrasound (US) guidance (08/22/2019), Cystoscopy (11/08/2018), Cystoscopy and transurethral biopsy of bladder (01/10/2015), Transurethral resection of prostate (01/10/2015), Cystoscopy (12/17/2014), Urodynamics (12/05/2014), Colonoscopy, Cystoscopy, Nose - repair or plastic operation, Tonsillectomy. Medications allopurinol 100 mg Tab aspirin 81 mg oral tablet, 81 mg= 1 tab(s), Oral, Daily Gemtesa 75 mg oral tablet, 75 mg= 1 tab(s), Oral, Daily, 3 refills multivitamin sildenafil 100 mg Tab, 100 mg= 1 tab(s), Oral, As Directed, 2 refills Allergies No Known Allergies Social History Alcohol - Denies Alcohol Use, 09/11/2019 Current, 1-2 times per week, 05/05/2023 Current, 1-2 times per week, 08/07/2019 Substance Abuse Tobacco - Denies Tobacco Use, 09/11/2019 (more content not included)... Normal [facility] Comment on above: Result Comment: Elec tronically Signed By: Davey JARA MD\.br\Date and Time Signed: 09/24/23 08:51 EDT\.br\Electronically Co-Signed By: Corrie Mendoza.br\Date and Time Co-Signed: 09/24/23 08:49 EDT Reminderson 09-08-2023 Reminders - From: uSzie Wheeler To: [facility] - Reminders/Recalls; Sent: 09/08/2023 08:58:16 EDT Show up: 04/17/2024 08:57:00 EDT Subject: Ambulatory Reminder Reminder/Recall Please call patient to schedule colonoscopy he wanted to wait till closer to the year dylon than doing it sooner. Patient had last one on 06/18/23. Noted in chart to do Nulytely with 2 day prep. Normal [facility] Reminders - From: Debora Medina To: [facility] - Reminders/Recalls; Sent: 07/12/2023 14:25:46 EDT Show up: 07/30/2023 14:25:00 EDT Subject: Ambulatory Reminder Reminder/Recall Call and schedule when [facility] approves Dr. Bullock. From: Bo Garduno ([facility] - Reminders/Recalls) To: Suzie Wheeler; Sent: 09/07/2023 12:41:41 EDT ! Show up: 09/07/2023 12:41:00 EDT I called patient and he stated he is feeling fine at this time. He would like to wait till closer to 06/18/23 as he stated there where only not able to see a small portion of his colon and would rather wait than having it done so soon. I will put this on the reminder for 04/20. Normal [facility] Lab Reportson 07-23-2023 Lab Reports [id number]#[id number]:127 Normal [facility] Ambulatory Visit Summaryon 0 07-12-2023 Ambulatory Visit Summary ERNA LEDESMA :1960 Visit Date:07/12/2023 Ambulatory Visit Instructions Your Diagnosis Screen for colon cancer History of esophageal ulcer Your Care Team Attending Physician - Garima Eastman CNP Primary Care Physician - Thmoas Lamar MD This Is Your Medications List polyethylene glycol 3350 with electrolytes (NuLYTELY Jama oral powder for reconstitution) Contact prescribing physician if questions or concerns allopurinol (allopurinol 100 mg Tab) aspirin (aspirin 81 mg oral tablet) mirabegron (Myrbetriq 50 mg oral tablet, extended release) omeprazole (omeprazole 40 mg Cap-DR) sildenafil (sildenafil 100 mg Tab) vibegron (Gemtesa 75 mg oral tablet) Procedures Performed Colonoscopy (06/18/2023), Esophagogastroduodenoscopy (06/18/2023), Cystoscope (11/19/2020), cysto (10/31/2019), Transrectal biopsy of prostate using ultrasound (US) guidance (08/22/2019), Cystoscopy (11/08/2018), Cystoscopy and transurethral biopsy of bladder (01/10/2015), Transurethral resection of prostate (01/10/2015), Cystoscopy (12/17/2014), Urodynamics (12/05/2014), Colonoscopy, Cystoscopy, Nose - repair or plastic operation, Tonsillectomy. Discharge Vitals Temperature (Temporal Artery) 36.2 ?C Heart Rate (Peripheral) 72 Blood Pressure 137/84 Height 178 cm Height 70 in Weight 87.5 kg Weight 192.5 lb BMI 27.62 What to do next Scheduled Follow-Up Appointments Wednesday 8:15 AM EDT With: ESTEFANI WILLIAMSON, Davey Hoover Where: [facility] Consent Formson 07-12-2023 Consent Forms [id number]#[id number] [facility] Gastroenterology Office/Clin ic Noteon 07-12-2023 Gastroenterology Office/Clinic Note Chief Complaint EGD results. HPI Staff Patient is a 63 year old male here today to review EGD results. History of Present Illness Patient is a 63-year-old male who presents for follow-up from EGD/colonoscopy completed 06/18/[address] Ames. Patient was previously evaluated by Dr. Ames 04/2023?not indicated patient was previously evaluated in ED regarding swallowing on file at dentist during root canal. Patient had previous EGD with Dr. Powell per note that indicated patient had nodule in esophagus that biopsy revealed was esophageal ulcer. Note from visit with Dr. Ames indicated EGD previously completed showed normal stomach, jejunal foreign biopsy identified as flexible sharp needlelike piece of dental equipment and was retrieved during EGD. Note indicated patient was having no difficulty swallowing. Patient was ordered repeat EGD and was ordered colonoscopy. 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 Is currently taking omeprazole 40mg daily. Denies FH colon cancer or colon polyps. Colonoscopy 06/18/2023 revealed fair prep, incomplete colonoscopy was to have repeat in less than 3 months. During today's visit, patient reports he is doing well. Is having 3 BMs a week that are formed. Denies acid reflux, dysphagia, black/bloody stools, nausea/vomiting, and denies unintentional weight loss. Denies having any other GI complaints. Review of Systems ROS - Provider Constitutional: no fever, no chills. Skin: no Jaundice. ENMT: Denies dysphagia and heartburn. Respiratory: no shortness of breath. Cardiovascular: no chest pain. Gastrointestinal: no nausea, no vomiting, no diarrhea, no GI bleeding. Physical Exam Vitals & Measurements T: 36.2 ?C(Temporal Artery) HR: 72(Peripheral) BP: 137/84 HT: 70 in HT: 178 cm WT: 87.5 kg WT: 192.5 lb BMI: 27.62 General: Well developed, well nourished, in no acute distress Head: Normocephalic/atraumatic Lungs: Normal respiratory effort and clear to auscultation Cardio: Regular rate and rhythm, normal S1 and S2, no murmur, no rub Abdomen: Soft, non-distended, non-tender. Normoactive bowel sounds present in all 4 abdominal quadrants, bilaterally. Mental Status: Alert and oriented x3. Normal mood and affect Assessment/Plan 1. Screen for colon cancer (Z12.11: Encounter for screening for malignant neoplasm of colon) Colonoscopy 06/18/2023 revealed fair prep, incomplete colonoscopy was to have repeat in less than 3 months. Ordered Colonoscopy with 2 day prep. Takes aspirin daily. Ordered: Colonoscopy (Hospital Procedure) 2. History of esophageal ulcer (Z87.19: Personal history of other diseases of the digestive system) Previous EGD with Dr. Powell per note that indicated patient had nodule in esophagus that biopsy revealed was esophageal ulcer. Note from visit with Dr. Ames indicated EGD previously completed showed normal stomach, jejunal foreign biopsy identified as flexible sharp needlelike piece of dental equipment and was retrieved during EGD. 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 Continue omeprazole 40mg daily. Orders: polyethylene glycol 3350 with electrolytes, See Instructions, 2 EA, Refill(s) 0, 2 day colon prep., [id number], 178, cm, 07/12/23 14:08:00 EDT, Height/Length Dosing, 87.5, kg, 07/12/23 14:08:00 EDT, Weight Dosing Follow-up With When Contact Information Garima Eastman CNP Within 1 to 2 weeks Additional Instructions: Following colonoscopy. Patient Education Colonoscopy, Adult Problem List/Past Medical History Ongoing Anticoagulated BMI 27.0-27.9,adult BPH with urinary obstruction Decreased sex drive Eczema Elevated PSA Erectile dysfunction Gout Hemorrhoids History of esophageal ulcer Other membranous urethral stricture, male Panic attack Personal history of bladder cancer Retinal hemorrhage Screen for colon cancer Sleep apnea Urinary urgency Historical Ulcer of esophagus Procedure/Surgical History Colonoscopy (06/18/2023), Esophagogastroduodenoscopy (06/18/2023), Cystoscope (11/19/2020), cysto (10/31/2019), Transrectal biopsy of prostate using ultrasound (US) guidance (08/22/2019), Cystoscopy (11/08/2018), Cystoscopy and transurethral biopsy of bladder (01/10/2015), Transurethral resection of prostate (01/10/2015), Cystoscopy (12/17/2014), Urodynamics (12/05/2014), Colonoscopy, Cystoscopy, Nose - repair or plastic operation, Tonsillectomy. Medications allopurinol 100 mg Tab aspirin 81 mg oral tablet, 81 mg= 1 tab(s), Oral, Daily Gemtesa 75 mg oral tablet, 75 mg= 1 tab(s), Oral, Daily, 3 refills, Not taking Myrbetriq 50 mg oral tablet, extended release, 50 mg= 1 tab(s), Oral, Daily, 3 refills NuLYTELY Jama oral powder for reconstitution, See Instructions omeprazole 40 mg Cap-DR, 40 mg= 1 cap(s), Oral, D (more content not included)... Normal [facility] Comment on above: Result Comment: Elec tronically Signed By: Jaren LEON, Garima Zamora\.kerry\Date and Time Signed: 07/12/23 14:14 EDT Lipid Panel Standardon 07-08 Cholesterol [Mass/Vol] 216.0 mg/dL High 66.0-200.0 [facility] Comment on above: Performed By: #### 1 [id number], [id number] #### [facility] (DEFAULT) [address] [place] [address] Cholesterol in HDL [Mass/Vol] 74 mg/dL High 40-71 [facility] Comment on above: Performed By: #### 1 [id number], [id number] #### [facility] (DEFAULT) [address] [place] [address] Cholesterol in LDL [Mass/Vol] 120 mg/dL High 1-100 [facility] Comment on above: Performed By: #### 1 [id number], [id number] #### [facility] (DEFAULT) [address] [place] [address] Cholesterol.total/ Cholesterol in HDL [Mass ratio] 2.8 {ratio} Normal 0.0-4.5 [facility] Comment on above: Performed By: #### 1 [id number], [id number] #### [facility] (DEFAULT) [address] [place] [address] Triglyceride [Mass/Vol] 105.0 mg/dL Normal 0.0-150.0 [facility] Comment on above: Performed By: #### 1 [id number], [id number] #### [facility] (DEFAULT) [address] [place] [address] VLDL. 21 mg/dL Normal 5-40 [facility] Comment on above: Performed By: #### 1 [id number], [id number] #### [facility] (DEFAULT) [address] [place] [address] PSA Screenon 07-08-2023 PSA Screen 3.42 ng/mL Normal 0.00-4.00 [facility] Comment on above: Result Comment: [employer] Clinical System (Chemiluminescence) Values obtained with different assay methods or kits cannot be used interchangeably. Results cannot be interpreted as absolute evidence of the presence or absence of malignant disease. Performed By: #### 1 [id number], [id number] #### [facility] ([facility]) [address] [place] [address] Pathology Noteon 07-02-2023 Pathology Note [id number]#1.00CD:127 [facility] Pathology Reporton Pathology Report [id number]#1.00CD:127 [facility] Postoperative Documentson Postoperative Documents [id number]#1.00CD:127 [facility] IntraOperative Documentson 0 06-24-2023 IntraOperative Documents [id number]#1.00CD:127 [facility] Consenton 06-21-2023 Consent [id number]#1.00CD:127 [facility] Discharge Instructionson Discharge Instructions [id number]#[id number]:127 [facility] Main OR Intraoperative Recor don 06-21-2023 Main OR Intraoperative Record IntraOp Document Type FT Summary Primary Physician: Danny AMES MD Finalized Date/Time: 06/21/23 09:07:05 Pt. Name: RENA LEDESMA/Sex: 1960 Male Med Rec #: [id number] Physician: Danny AMES MD Financial #: [id number] Pt. Type: O Room/Bed: Endo 01/27 Admit/Disch: 06/18/23 11:58:07 - 06/18/23 14:32:00 Institution: Case Times FT Entry 1 Patient Times In Room 06/18/23 13:27:00 Out Room 06/18/23 14:01:00 Procedure Times Start 06/18/23 13:32:00 Stop 06/18/23 13:58:00 Anesthesia Times Start 06/18/23 13:27:00 Stop 06/18/23 14:01:00 Time at [facility] 06/18/23 13:48:00 Last Modified By: Adal Pelayo RN 06/18/23 14:02:52 General Comments: 1341 EGD completed MSRN 1344 Colonoscopy started MSRN unable to reach cecum, ascending colon reached per Dr. Ames. colonoscopy incomplete MSRN 06/21/23 Chart opened to review and send charges [facility] Case Attendance FT Entry 1 Entry 2 Entry 3 Case Attendee Gita STEINER, Adal Ledesma SUPERVISOR SHOP, Leah AMES MD, Danny Fontaine Role Performed Order Picker/Assembler - Primary Scrub - Primary Surgeon - Primary Time In 06/18/23 13:27:00 06/18/23 13:27:00 06/18/23 13:27:00 Time Out 06/18/23 14:01:00 06/18/23 14:01:00 06/18/23 14:01:00 Procedure EGD AND COLONOSCOPY(.) EGD AND COLONOSCOPY(.) EGD AND COLONOSCOPY(.) Comments Last Modified By: Gita RN, Adal Pelayo RN, Adal Pelayo RN, Adal Hansen 06/18/23 14:02:53 06/18/23 14:02:53 06/18/23 14:02:53 Entry 4 Entry 5 Entry 6 Case Attendee Laura Daley, Jose Stratton APRICOT PACKER, Laine Leahy Role Performed Staff - Other Anesthesiologist APRICOT PACKER Assistant Statistician Time In 06/18/23 13:32:00 06/18/23 13:27:00 06/18/23 13:43:00 Time Out 06/18/23 14:01:00 06/18/23 13:44:00 06/18/23 14:01:00 Procedure EGD AND COLONOSCOPY(.) EGD AND COLONOSCOPY(.) EGD AND COLONOSCOPY(.) Comments Dr. Stoll supervising Dr. Stoll supervising case Last Modified By: Gita RN, Adal Pelayo RN, Adal Pelayo RN, Adal Hansen 06/18/23 14:02:53 06/18/23 14:02:53 06/18/23 14:12:02 Perioperative Protocols FT Pre-Care Text: Implements protective measures prior to operative or invasive procedure, confirms identity before the operative or invasive procedure, verifies operative procedure, surgical site, and laterality Entry 1 Procedure(s) EGD AND COLONOSCOPY(.) Patient Identity Birthday, ID Band Verified (select at Check, Patient least 2): Participation Consents / H and P Anesthesia Consent, Operative Site N/A Verified HandP, Surgery/Procedure Marking Verified Consent Surgical Site No Laterality Verified n/a Verified Procedure Verified Yes Correct Patient Yes Position Verified Availability Equipment, Medication Prep Dry n/a Verified (If Applicable) PreOp Antibiotic No Time Out Jose Eden Given Participants Baltazar Hardin SUPERVISOR SHOP, BEN Castro MD, Maher, Souter RN, Morgan E Time Out Complete 06/18/23 13:31:00 Outcomes Met? Yes Last Modified By: Adal Pelayo RN 06/18/23 13:31:46 Post-Care Text: The patient is free from signs and symptoms of injury caused by extraneous objects Allergy Information FT Pre-Care Text: Verifies allergies Entry 1 Allergies Reviewed? Yes Allergies Reviewed Self/Patient With Outcomes Met? Yes Last Modified By: Adal Pelayo RN 06/18/23 13:31:53 Post-Care Text: The patient received appropriate medication(s) safely administered during the perioperative period Surgical Procedures FT Entry 1 Procedure Description Procedure EGD AND COLONOSCOPY Modifiers . Surgeon Description EGD with z-line nodule injected with lifting (everlift), removed using hot snare and hemoclip x1 applied to nodule site. Colonoscopy Primary Procedure Yes Primary Surgeon Danny AMES MD Start 06/18/23 13:32:00 Stop 06/18/23 13:58:00 Anesthesia Type General Surgical Service Gastroenterology Wound Class 2 - Clean-Contaminated Last Modified By: Adal Pelayo RN 06/18/23 14:07:57 General Comments: Colonoscopy incomplete due to fair prep and inability to reach cecum General Case Data FT Pre-Care Text: Classifies surgical wound, implements aseptic technique, initiates traffic control Entry 1 Case Information OR ENDO 1 FT Case Level Level 2 Wound Class 2 - Clean-Contaminated Specialty Gastroenterology ASA Class 2 Preop Diagnosis Esophageal ucler, Colon Postop Same As Preop No cancer screening Postop Diagnosis EGD- Z-line nodule. Outcomes Met? Yes Colonoscopy- Internal hemorrhoids Last Modified By: Gita STEINER, Adal Hansen 06/18/23 14:07:01 Post-Care Text: The patient is free from signs and symptoms of infection General Comments: Colonoscopy incomplete due to fair prep and inability to reach cecum. MSRN Skin Assessment (Pre Procedure) FT Pre-Care Text: Implements protective measures to prevent skin/ tissue injury due to thermal or mechanical sources Evaluates for signs and symptoms of physical injury to (more content not included)... Normal [facility] Consent for Treatmenton 05-30 Consent for Treatment [id number]#[id number]:127 Normal [facility] Discharge Instructionson Discharge Instructions BALTAZARRENA :1960 Visit Date:06/18/2023 Inpatient Discharge Instructions Your Care Team Admitting Physician - Danny AMES MD Referring Physician - Danny AMES MD Reason for Your Visit SCREENING, ULCER OF ESOPHAGUS Your Diagnosis Encounter for screening for malignant neoplasm of rectum Esophageal polyp Screening for colorectal cancer Tests Performed Pathology Tissue Exam -- Results Pending -- Please visit your patient portal for your results or contact your primary care physician. This Is Your Medications List allopurinol (allopurinol 100 mg Tab) aspirin (aspirin 81 mg oral tablet) mirabegron (Myrbetriq 50 mg oral tablet, extended release) omeprazole (omeprazole 40 mg Cap-DR) sildenafil (sildenafil 100 mg Tab) vibegron (Gemtesa 75 mg oral tablet) Procedure History Cystoscope (11/19/2020), cysto (10/31/2019), Transrectal biopsy of prostate using ultrasound (US) guidance (08/22/2019), Cystoscopy (11/08/2018), Cystoscopy and transurethral biopsy of bladder (01/10/2015), Transurethral resection of prostate (01/10/2015), Cystoscopy (12/17/2014), Urodynamics (12/05/2014), Colonoscopy, Cystoscopy, Nose - repair or plastic operation, Tonsillectomy. Discharge Vitals Temperature (Temporal Artery) 36.2 ?C Heart Rate (Monitored) 64 Respiratory Rate 53 Blood Pressure 120/75 Height 178 cm Weight 87 kg BMI 27.46 What to do next Instructions From Your Doctor Event Name Event Result Discharge Activity Resume normal activities in 24 hours Discharge Restrictions No driving for 24 hrs, Do not operate machinery or tools, Do not make important decisions for 24 hours Discharge Diet(s) Regular Pharmacy Information [facility] [place] Discharge Instructions Discharge Instructions Previously Scheduled Follow-Up Appointments Wednesday 1:45 PM EDT With: ESTEFANI WILLIAMSON, Davey Hoover Where: [facility] Comment on above: Result Comment: Elec tronically Signed By: James STEINER, Rosalinda\.br\Date and Time Signed: 06/18/23 14:14 EDT Endoscopic Procedure Report - Otheron 06-18-2023 Endoscopic Procedure Report - Other Patient: RENA LEDESMA Age: 63 years Sex: Male : 1960 Associated Diagnoses: None Author: Danny AMES MD Pre-Procedure Procedure Date 06/18/2023 14:00:00 . Procedure Type: Colonoscopy. Procedure provider Performed by Danny Ames MD. Current history and physical Documented on chart. Colorectal neoplasm risk assessment Average risk. Informed Consent After discussing the rationale, risks and benefits, and alternatives to this procedure, the patient provided signed consent for the procedure. Pre-procedure diagnosis: Age 50 years or over. Medications Anticoagulant/antiplatelet None. ASA Classification: Class II. . Monitoring: See anesthesia record. . Procedure The procedure was performed in the hospital. See anesthesia record for sedation given during procedure. Rectal exam was performed and was normal with no masses palpated, with no gross blood, with no fissure(s). The patient was positioned starting in the left lateral decubitus position and with safety measures. Endoscope type used was an adult-size. The endoscope was lubricated then introduced through the anus. The scope was advanced to the ascending colon. No difficulties encountered during the procedure. The bowel preparation quality was fair and was adequate (see polyps greater than or equal to 6 millimeters). The patient tolerated the procedure well. Findings 1. Fair prep, small lesions can be missed 2. Incomplete colonoscopy secondary to significant looping, scope reach proximal ascending colon/ileocecal valve Images Procedure images: Rec1_hd_video___ [id number].jpg Rec1_hd_video___ _[id number].jpg . Post-Procedure Complications: none. Estimated blood loss: none. Specimens: none. Devices/ implants: none left in place. Impression and Plan Impression: 1. Fair prep, small lesions can be missed 2. Incomplete colonoscopy secondary to significant looping, scope reach proximal ascending colon/ileocecal valve Recommendations: Repeat colonoscopy:: In 10 years. Follow-up:: Follow-up with PCP as previously scheduled. Diet:: Resume previous diet. Medication resumption:: Continue current medications. Return to activities:: After 24 hours. [facility] Comment on above: Result Comment: Elec tronically Signed By: Danny AMES MD\.br\Date and Time Signed: 06/18/23 14:01 EDT Other Comment: Linda cardenas Attachment - attachment storage system not supported [id number] Can be viewed in source systemMissing Attachment - attachment storage system not supported [id number] Can be viewed in source system Endoscopic Procedure Report - Other Patient: RENA LEDESMA Age: 63 years Sex: Male : 1960 Associated Diagnoses: None Author: Danny AMES MD Pre-Procedure Procedure Date 06/18/2023 13:42:00 . Procedure Type: Esophagogastroduodenoscopy. Procedure provider Performed by Danny Ames MD. Current history and physical Documented on chart. Informed Consent After discussing the rationale, risks and benefits, and alternatives to this procedure, the patient provided signed consent for the procedure. Pre-procedure diagnosis: Diagnostic: Esophageal nodule. Medications Anticoagulant/antiplatelet None. Antibiotic prophylaxis None. ASA Classification: Class II. . Monitoring: See anesthesia record. . Procedure The procedure was performed in the hospital. See anesthesia record for sedation given during procedure. The patient was positioned starting in the left lateral decubitus position and with safety measures. Endoscope type used was an adult-size, introduced orally, advanced to the 2nd portion of the duodenum. No difficulty was encountered during the procedure. Views were excellent. The patient tolerated the procedure well. Findings Esophageal nodule, 10 mm, rounded, located at the Z-line, removed completely with hot snare after submucosal lifting, 1 clip placed at polypectomy site Normal gastric and duodenal mucosa Images Procedure images: Rec1_hd_video_2022___ [id number].jpg Rec1_hd_video_2022__T12_ [id number].jpg Rec1_hd_video_2022__T1_ [id number].jpg Rec1_hd_video_2022__T1_ 38_[id number].jpg Rec1_hd_video_2022__T1_ 37_[id number].jpg Rec1_hd_video___ [id number].jpg . Post-Procedure Complications: none. Estimated blood loss: none. Specimens: sent to pathology. Devices/ implants: none left in place. Impression and Plan Esophageal nodule, 10 mm, rounded, located at the Z-line, removed completely with hot snare after submucosal lifting, 1 clip placed at polypectomy site Normal gastric and duodenal mucosa Recommendations: Follow-up in GI clinic in 2 weeks [facility] Comment on above: Result Comment: Elec tronically Signed By: BEN WILLIAMSON, Danny\.br\Date and Time Signed: 06/18/23 14:00 EDT Other Comment: Linda cardenas Attachment - attachment storage system not supported [id number] Can be viewed in source systemMissing Attachment - attachment storage system not supported [id number] Can be viewed in source systemMissing Attachment - attachment storage system not supported [id number] Can be viewed in source systemMissing Attachment - attachment storage system not supported [id number] Can be viewed in source systemMissing Attachment - attachment storage system not supported [id number] Can be viewed in source systemMissing Attachment - attachment storage system not supported [id number] Can be viewed in source system Main OR PACU I Recordon 05-30 Main OR PACU I Record PACU Phase I Document Type FT Summary Primary Physician: Danny AMES MD Finalized Date/Time: 06/18/23 14:49:43 Pt. Name: BALTAZAR RENA Mckeon/Sex: 1960 Male Med Rec #: [id number] Physician: Danny AMES MD Financial #: [id number] Pt. Type: O Room/Bed: [facility] 01/27 Admit/Disch: 06/18/23 11:58:07 - Institution: Case Times PACU I FT Pre-Care Text: Identifies barriers to communication and implements measures to provide psychological support Develops individualized plan of care, and ensures continuity of care Maintains patient's dignity and privacy, and maintains patient confidentiality Identifies and reports philosophical, cultural, and spiritual beliefs and values Identifies individual values and wishes concerning care Implements aseptic technique, and administers prescribed antibiotic therapy and immunizing agents as ordered Evaluates postoperative tissue perfusion Implements thermoregulation measures, and monitors body temperature Evaluates postoperative respiratory status Evaluates postoperative cardiac status Evaluates postoperative neurological status Assesses pain control, collaborated in initiating patient-controlled analgesia and implements alternative methods of pain control Verifies allergies, administers prescribed medications and solutions, evaluates response to medications Entry 1 In PACU I 06/18/23 14:02:00 Discharge from PACU 06/18/23 14:32:00 I Outcomes Met? Yes Last Modified By: Rosalinda Ramirez RN 06/18/23 14:49:21 Post-Care Text: The patient demonstrates knowledge of the expected response to the operative or invasive procedure The patient's care is consistent with the individualized perioperative plan of care The patient's right to privacy is maintained The patient's value system, lifestyle, ethnicity, and culture are considered, respected, and incorporated into the perioperative plan of care The patient participates in decisions affecting his or her perioperative plan of care The patient is free from signs and symptoms of infection The patient has wound/tissue perfusion consistent with or improved from baseline levels established preoperatively The patient is at or returning to normothermia at the conclusion of the immediate postoperative period The patient's respiratory function is consistent with or improved from baseline levels established preoperatively The patient's cardiovascular status is consistent with or improved from baseline levels established preoperatively The patient's cardiovascular status is consistent with or improved from baseline levels established preoperatively The patient demonstrates and/or reports adequate pain control throughout the perioperative period The patient received appropriate medication(s), safely administered during the perioperative period Acuity Level PACU I FT Entry 1 Start Time 06/18/23 14:02:00 Stop Time 06/18/23 14:32:00 Acuity Level Acuity Level I Last Modified By: Rosalinda Ramirez RN 06/18/23 14:49:38 Finalized By: Rosalinda Ramirez RN Document Signatures Signed By: Rosalinda Ramirez RN 06/18/23 14:49 Normal [facility] Main OR Preoperative Recordo n 06-18-2023 Main OR Preoperative Record Holding Area Document Type FT Summary Primary Physician: Danny AMES MD Finalized Date/Time: 06/18/23 12:24:49 Pt. Name: RENA LEDESMA/Sex: 1960 Male Med Rec #: [id number] Physician: Danny AMES MD Financial #: [id number] Pt. Type: O Room/Bed: [facility] 01/27 Admit/Disch: 06/18/23 11:58:07 - Institution: Case Times Holding FT Pre-Care Text: Verifies consent for planned procedure, identifies individual values and wishes concerning care, includes family members in perioperative teaching Secures patient's records' belongings, and valuables, maintains patient's dignity and privacy, and maintains patient confidentiality Entry 1 In Holding 06/18/23 12:16:00 Outcomes Met? Yes Last Modified By: Antonina Farrar RN 06/18/23 12:23:34 Post-Care Text: The patient participates in decisions affecting his or her perioperative plan of care The patient's right to privacy is maintained Surgery Checklist FT Entry 1 Patient Birthday, ID Band Procedure History and Physical, Identification: Check, Patient Verification: Surgical Consent, With Participation Patient NPO after Midnight: No Date/Time: 06/18/23 08:00:00 Personal Items: Glasses Personal Items clothes Comment: Limitations: no Complaints of Pain: No Pain Comment: no Operative Site n/a Marking: Marked By: n/a Availability Equipment Verified: Does Patient Smoke No Patient states Yes Comment - Adult -tez postop adult Supervision supervision available Case Cancelled in No Holding Area see comments below for reason Last Modified By: Antonina Farrar RN 06/18/23 12:24:44 General Comments: 1005 pre pin patient tolerated well, last bowel movement was tannish./GEOVANNARN Finalized By: Antonina Farrar RN Document Signatures Signed By: Antonina Farrar RN 06/18/23 12:24 Normal [facility] Monitor Recordon 06-18-2023 Monitor Record [id number]:127 Normal [facility] Monitor Record [id number]#[id number]:127 Normal [facility] Patient Education - Texton 0 06-18-2023 Patient Education - Text Colonoscopy Care After Surgery Please read the instructions outlined below and refer to this sheet in the next few weeks. These discharge instructions provide you with general information on caring for yourself after you leave the hospital. Your doctor may also give you specific instructions. While your treatment has been planned according to the most current medical practices available, unavoidable complications occasionally occur. If you have any problems or questions after discharge, please call your doctor. ACTIVITY You may resume your regular activity, but move at a slower pace for the next 24 hours. Take frequent rest periods for the next 24 hours. Walking will help get rid of the air and reduce the bloated feeling in your abdomen (belly). No driving for 24 hours (because of the anesthesia (medicine) used during the test). You may shower. Do not sign any important legal documents or operate any machinery for 24 hours (because of the anesthesia used during the test). NUTRITION Drink plenty of fluids. You may resume your normal diet as instructed by your doctor. Begin with a light meal and progress to your normal diet. Heavy or fried foods are harder to digest and may make you feel nauseated (sick to your stomach). Avoid alcoholic beverages for 24 hours or as instructed. MEDICATIONS You may resume your normal medications unless your doctor tells you otherwise. WHAT YOU CAN EXPECT TODAY Some feelings of bloating in the abdomen. Passage of more gas than usual. Spotting of blood in your stool or on the toilet paper. FOLLOW-UP Your doctor will discuss the results of your test with you. SEEK IMMEDIATE MEDICAL ATTENTION IF: There is more than a spotting of blood in your stool. There is abdominal distention (your abdomen is swollen). There is vomiting. You have a temperature over 101.5 F. There is abdominal pain or discomfort that is severe or gets worse throughout the day. Endoscopy Care After Procedure Please read the instructions outlined below and refer to this sheet in the next few weeks. These discharge instructions provide you with general information on caring for yourself after you leave the hospital. Your doctor may also give you specific instructions. While your treatment has been planned according to the most current medical practices available, unavoidable complications occasionally occur. If you have any problems or questions after discharge, please call your doctor. ACTIVITY ? You may resume your regular activity but move at a slower pace for the next 24 hours. ? Take frequent rest periods for the next 24 hours. ? Walking will help expel (get rid of) the air and reduce the bloated feeling in your abdomen. ? No driving for 24 hours (because of the anesthesia (medicine) used during the test). ? You may shower. ? Do not sign any important legal documents or operate any machinery for 24 hours (because of the anesthesia used during the test). NUTRITION ? Drink plenty of fluids. ? You may resume your normal diet. ? Begin with a light meal and progress to your normal diet. ? Avoid alcoholic beverages for 24 hours or as instructed by your caregiver. MEDICATIONS ? You may resume your normal medications unless your caregiver tells you otherwise. WHAT YOU CAN EXPECT TODAY ? You may experience abdominal discomfort such as a feeling of fullness or ?gas? pains. FOLLOW-UP ? Your doctor will discuss the results of your test with you. seek immediate medical attention if any of the following occur: ? Excessive nausea (feeling sick to your stomach) and/or vomiting. ? Severe abdominal pain and distention (swelling). ? Trouble swallowing. ? Temperature over 100 F (37.8? C). ? Rectal bleeding or vomiting of blood. Document Released: 06/29/2005 Document Re-Released: 05/09/2007 ExitCare? Patient Information ?2009 [employer]. Gastroenterology Hemorrhoids Hemorrhoids are swollen veins that may develop: ? In the butt (rectum). These are called internal hemorrhoids. ? Around the opening of the butt (anus). These are called external hemorrhoids. Hemorrhoids can cause pain, itching, or bleeding. Most of the time, they do not cause serious problems. They usually get better with diet changes, lifestyle changes, and other home treatments. What are the causes? This condition may be caused by: ? Having trouble pooping (constipation). ? Pushing hard (straining) to poop. ? Watery poop (diarrhea). ? . ? Being very overweight (obese). ? Sitting for long periods of time. ? Heavy lifting or other activity that causes you to strain. ? Anal sex. ? Riding a bike for a long period of time. What are the signs or symptoms? Symptoms of this condition include: ? Pain. ? Itching or soreness in the butt. ? Bleeding from the butt. ? Leaking poop. ? Swelling in the area. ? One or more lumps around the opening of your butt. How is this (more content not included)... [facility] Progress Note-Physicianon Progress Note-Physician Patient: RENA LEDESMA Age: 63 years Sex: Male : 1960 Associated Diagnoses: None Author: Mazin Stoll Jr, DO Postoperative Information Postoperative disposition: Postoperative disposition: To PACU. Optimetrix number: Optimetrix number [id number]. Anesthetic utilized: General. Health Status Allergies: Allergic Reactions (Selected) No Known Allergies Physical Examination Vital Signs 06/18/2023 14:20 EDT Heart Rate Monitored 68 bpm Respiratory Rate Monitored 15 br/min Systolic Blood Pressure 128 mmHg Diastolic Blood Pressure 80 mmHg Blood Pressure Location Left arm Mean Arterial Pressure, Cuff 96 mmHg SpO2 98 % 06/18/2023 14:15 EDT Heart Rate Monitored 61 bpm Respiratory Rate Monitored 16 br/min Systolic Blood Pressure 124 mmHg Diastolic Blood Pressure 82 mmHg Blood Pressure Location Left arm Mean Arterial Pressure, Cuff 96 mmHg SpO2 97 % 06/18/2023 14:10 EDT Heart Rate Monitored 62 bpm Respiratory Rate Monitored 15 br/min Systolic Blood Pressure 122 mmHg Diastolic Blood Pressure 77 mmHg Blood Pressure Location Left arm Mean Arterial Pressure, Cuff 92 mmHg SpO2 96 % 06/18/2023 14:05 EDT Heart Rate Monitored 64 bpm Respiratory Rate Monitored 53 br/min Systolic Blood Pressure 120 mmHg Diastolic Blood Pressure 75 mmHg Blood Pressure Location Left arm Mean Arterial Pressure, Cuff 90 mmHg SpO2 96 % 06/18/2023 14:02 EDT Temperature Temporal Artery 36.2 DegC LOW Heart Rate Monitored 63 bpm Respiratory Rate Monitored 18 br/min Systolic Blood Pressure 125 mmHg Diastolic Blood Pressure 78 mmHg Blood Pressure Location Left arm Mean Arterial Pressure, Cuff 94 mmHg SpO2 97 % Pain Assessment: Controlled. General: Awake, Alert, Appropriate. Respiratory: Adequate air exchange. Cardiovascular: Stable, Normal peripheral perfusion. Neurological: Normal sensory function, Normal motor function. Assessment Anesthetic outcome No anesthetic complications noted. Adequate pain relief. able to void without difficulty, able to ambulate with assist, tolerating PO intake, no N/V. Review / Management Condition: Stable. Plan Transfer/Discharge: Transfer/Discharge Discharge when meets criteria ( To home ). Normal [facility] Comment on above: Result Comment: Elec tronically Signed By: Mazin Stoll Jr, DO\.br\Date and Time Signed: 06/18/23 15:14 EDT Progress Note-Physician Patient: RENA LEDESMA Age: 63 years Sex: Male : 1960 Associated Diagnoses: None Author: Mazin Stoll Jr, DO Preoperative Information Anesthesia Preop Info: Time patient last ate or drank 06/18/2023 00:00:00. Anesthesia history: Patient history: None. Family history+: None. Informed consent: Signed by patient. Re-evaluation prior to induction: Initial evaluation reviewed: No significant change. Review of Systems Eye: Negative except as documented in history of present illness. Ear/Nose/Mouth/Throat: Negative except as documented in history of present illness. Respiratory: Negative except as documented in history of present illness. Cardiovascular: Negative except as documented in history of present illness. Musculoskeletal: Negative except as documented in history of present illness. Neurologic: Negative except as documented in history of present illness. Health Status Allergies: Allergic Reactions (Selected) Severity Not Documented Ciprofloxacin- Unknown. Problem list: All Problems BPH with urinary obstruction / SNOMED CT 7775507994 / Confirmed BMI 27.0-27.9,adult / SNOMED CT 2723461648 / Confirmed Anticoagulated / SNOMED CT 025209725 / Confirmed Eczema / SNOMED CT 80756941 / Confirmed Erectile dysfunction / SNOMED CT 3313000668 / Confirmed Gout / SNOMED CT 070774564 / Confirmed Hemorrhoids / SNOMED CT 709780414 / Confirmed Personal history of bladder cancer / SNOMED CT 742540388 / Confirmed Panic attack / SNOMED CT 558287687 / Confirmed Screen for colon cancer / SNOMED CT 159873235 / Confirmed Elevated PSA / SNOMED CT 1316436005 / Confirmed Decreased sex drive / SNOMED CT 560834986 / Confirmed Retinal hemorrhage / SNOMED CT 78423787 / Confirmed Sleep apnea / SNOMED CT 321068077 / Confirmed Ulcer of esophagus / SNOMED CT 81519805 / Confirmed Other membranous urethral stricture, male / SNOMED CT 956346870 / Confirmed Urinary urgency / SNOMED CT 463059153 / Confirmed Histories Procedure history: Cystoscope ([id number]) on 11/19/2020 at 60 Years. cysto on 10/31/2019 at 59 Years. Transrectal biopsy of prostate using ultrasound (US) guidance ([id number]) on 08/22/2019 at 59 Years. Cystoscopy ([id number]) on 11/08/2018 at 58 Years. Cysto/TURP/TURBT ([id number]) on 01/10/2015 at 54 Years. Cystoscopy and transurethral biopsy of bladder ([id number]) on 01/10/2015 at 54 Years. Cysto ([id number]) on 12/17/2014 at 54 Years. Comments: 07/12/2019 10:00 Nikki Joya 07/01/15, 10/21/15, 01/21/16, 05/05/16, 11/17/16, 11/09/17, 11/08/18 Urodynamics ([id number]) on 12/05/2014 at 54 Years. Tonsillectomy (565633076). Colonoscopy (907627151). Cystoscopy (85593276). Nose - repair or plastic operation (754159755). Social History Social & Psychosocial Habits Alcohol 08/07/2019 Use: Current Frequency: 1-2 times per week 09/11/2019 Risk Assessment: Denies Alcohol Use 05/05/2023 Use: Current Frequency: 1-2 times per week Substance Abuse Comment: denies - 02/18/2023 14:01 - Payton Marinelli Tobacco 09/11/2019 Risk Assessment: Denies Tobacco Use 11/10/2022 Tobacco Use: Former smoker, quit more Smokeless tobacco use: Never 05/05/2023 Tobacco Use: Former smoker, quit more . Physical Examination Airway: Mallampati classification: II (soft palate, fauces, uvula visible). Respiratory: adequate air exchange. Cardiovascular: Regular rhythm. Plan [place] [employer] (ASA) physical status classification: Class II. Anesthetic Preoperative Plan: Anesthesia General. Normal [facility] Comment on above: Result Comment: Elec tronically Signed By: Mazin Stoll Jr, DO\.kerry\Date and Time Signed: 06/18/23 15:12 EDT Gastroenterology Office/Clin ic Noteon 05-10-2023 Gastroenterology Office/Clinic Note Chief Complaint esophageal inflammation & ulcer HPI Staff Patient is a 62 year old male who was referred by Sherry for esophagitis and esophageal ulcer as noted in EGD bx 02/18/23. Patient was consulted in ER by Sherry on 02/18/23 d/t swallowing a file at dentist during root canal. Sherry performed an EGD after noting the foreign body on the abdominal X-ray and retrieved it with snare. During EGD it was noted that patient had a nodule in the esophagus, was bx and came back as an esophageal ulcer. History of Present Illness Rena Ledesma is a 62-year-old white male who was referred to me by Dr. Powell for an esophageal ulcer. The patient reports that he swallowed a small file during a dental procedure and he was seen in the ER on 02/18/2023. He was found to have an esophageal nodule at the GI junction based on the EGD and it was biopsied. The junction appears to be normal. The stomach appears to be normal. The duodenum was normal. A jejunal foreign body was identified in the proximal jejunum described as a flexible sharp needle-like piece of dental equipment and retrieved during the scope. The biopsy from the esophageal nodule was not concerning. It showed severe inflammatory ulcer of the esophagus with reactive regenerative atypia. Gastric biopsies were normal. He did not have another work-up done at [facility]. He denies any dysphagia, heartburn, or significant discomfort in the esophagus. He is able to eat solid food with no trouble. He is not taking any anti-acid. His last colonoscopy was done at [facility] over 10 years ago. He denies any polyps found. He denies a family history of colon cancer. Review of Systems PHQ Score Initial Depression Screen Score: 0 Constitutional: No fever, no chills, no sweats, no weakness Skin: No Jaundice, no rash, no lesions, no petechiae ENMT: no ear pain, no sore throat, no congestion, no hoarseness Respiratory: no shortness of breath, no cough, no orthopnea, no wheezing Cardiovascular: no chest pain, no palpitations, no edema Gastrointestinal: no nausea, no vomiting, no diarrhea, no constipation, no GI bleeding, no abdominal pain, no dysphagia, no heartburn Genitourinary: No dysuria, no hematuria, no discharge, no pain Musculoskeletal: no back pain, no trauma Neurologic: no numbness, no sleeping problems Additional ROS info: Except as noted in the above Review of Systems and in the History of Present Illness all other systems have been reviewed and are negative or noncontributory. Physical Exam Vitals & Measurements HR: 79(Peripheral) RR: 16 BP: 154/80 HT: 70 in HT: 178 cm WT: 87 kg WT: 191.4 lb BMI: 27.46 Constitutional: Appearance: well developed Skin: Inspection: no rashes, ulcers, icterus, or telangiectasias. Eyes: Conjunctivae/lids: normal conjunctivae and lids. ENMT: Hearing: within normal limits. Lips/Teeth/Gums: normal oral mucosa Neck: Neck: normal motion, central trachea Respiratory: Percussion: thorax normoresonant. Auscultation: normal breath sounds; no rubs, wheezes, rale or rhonchi. Cardiovascular: Auscultation: normal rhythm, S1 and S2; no rubs, murmurs or gallop. Peripheral: no edema Gastrointestinal/Abdomen: Abdomen: normal consistency and bowel sounds; no tenderness or masses. Liver/Spleen: normal size and consistency, not palpable. Rectal: deferred Musculoskeletal: Gait/station: normal gait Assessment/Plan 1. Ulcer of esophagus (K22.10: Ulcer of esophagus without bleeding) The patient had a recent foreign body stuck in the GI tract after he swallowed a sharp needle like piece of dental equipment. His EGD was done by Dr. Powell in 01/2023 and he retrieved the dental piece from the jejunum. During the EGD he described an esophageal nodule identified at the GE junction. The biopsy from that nodule showed severe inflammation and ulcerations, but no evidence of malignancy. The patient is completely asymptomatic. He is not on any anti-acid. He denied any dysphagia, odynophagia, or heartburn. At this point, it would be reasonable to repeat the EGD to confirm the resolution of the esophagitis described on the biopsy and to reevaluate the esophageal nodule at the GE junction. 2. Screen for colon cancer (Z12.11: Encounter for screening for malignant neoplasm of colon) The patient believes that his last colonoscopy was more than 10 years ago done at [facility]. He has no family history of colon cancer. He is not on any antiplatelets or anticoagulation medication except for aspirin. We will proceed with a colonoscopy. Portions of this record may have been created with voice recognition artificial intelligence software, specifically [employer], [employer] and or [employer]. Substitutions may have occurred due to the inherent limitations of voice recognition and artificial intelligence software. ATTESTATION: Documentation services were performed after patient or guardian consented to allow [employer] to record this visit. (more content not included)... Normal [facility] Comment on above: Result Comment: Elec tronically Signed By: Josh Celaya\.br\Date and Time Signed: 05/05/23 12:56 EDT\.br\Electronically Co-Signed By: Danny AMES MD\.br\Date and Time Co-Signed: 05/09/23 22:04 EDT Consent for Immunizationon 0 05-06-2023 Consent for Immunization [id number]#[id number]:127 Normal [facility] Ambulatory Visit Summaryon 0 05-05-2023 Ambulatory Visit Summary BALTAZAR, RENA Espino :1960 Visit Date:05/05/2023 Ambulatory Visit Instructions Your Diagnosis Ulcer of esophagus Screen for colon cancer Your Care Team Attending Physician - BEN WILLIAMSON, Danny Primary Care Physician - Thomas Lamar MD Referring Physician - Rafael Powell MD This Is Your Medications List omeprazole (omeprazole 40 mg Cap-DR) Contact prescribing physician if questions or concerns allopurinol (allopurinol 100 mg Tab) aspirin (aspirin 81 mg oral tablet) cephalexin (Keflex 500 mg Cap) mirabegron (Myrbetriq 50 mg oral tablet, extended release) sildenafil (sildenafil 100 mg Tab) vibegron (Gemtesa 75 mg oral tablet) Procedures Performed Cystoscope (11/19/2020), cysto (10/31/2019), Transrectal biopsy of prostate using ultrasound (US) guidance (08/22/2019), Cystoscopy (11/08/2018), Cystoscopy and transurethral biopsy of bladder (01/10/2015), Transurethral resection of prostate (01/10/2015), Cystoscopy (12/17/2014), Urodynamics (12/05/2014), Colonoscopy, Cystoscopy, Nose - repair or plastic operation, Tonsillectomy. Discharge Vitals Heart Rate (Peripheral) 79 Respiratory Rate 16 Blood Pressure 154/80 Height 70 in Height 178 cm Weight 191.4 lb Weight 87 kg BMI 27.46 What to do next Scheduled Follow-Up Appointments Wednesday 1:45 PM EDT With: ESTEFANI WILLIAMSON, Davey Hoover Where: [facility] Coding Summary.on 03-04-2023 Coding Summary. CD:[id number] Ww+PGhlY WQ+ED8VKJWiH54hxVBagR5pM8AGU AgLEnwvMRXPWMjUSxGejoNfMI7ld XNjZXJu IC8+KD1jORSlWavmtYWhk5V8rVD5 S11jhn3uQRlneYP9YSXhUiQjsgxa d6pswPd7XDsoSgbrXxRd OQGvtO47NLF1hZ08Qd57bIWdaYAj w6xadWw1UwEwLAQqAAE6uXnwQTiw e1OmJTFvC38wdKMcj6Y0 MWKfuGmjdLNfPjEjuOX8uC3tIPzi pjnjv4nplypbXen3hl51gNAlo1X8 yGB7N9IgfjX6SGZwzWBb HkyeeFHLkF5iablxr7rcvhdkJqFc WYVsIUj8DQz2OEGzsFqgPtXzFC58 FLG2JHUsqzTqU2BlVNRt kJuvQpK9x2I7Jq4XG4XULgiaK7XW TUFSWTwvdGQ+BV81fm80D3XqIjvs Ayk2IRFhSKB9vRS4wR3d MYJqJCaip3M7qOX1J6AzlsJcnp0p o1kbSIAxKCpkI87mzWUis9A2OHIb nZR0SXYdzKunSoUsyZ97 Oyc+UUXznBvdo1BpAmyle5jse3ru qYm9RyitQQTlbdMatQjhBWK4g0Vg Mf5jPOIweVP8pSS8sD1m XfBcQrG9CWtwC366SmKopCSzYbox N29hF1VbmXU+FQNtOgt2RRQgqXbj RO1vU3PlIDZubbzdkLJr rCcnTE8bNDQmeogrIOIszU3gDIFl G3j4CyFyPlE5MKnwK5DeZZVqhawb Iw46uN7tMxWzCnT8HFxj G7HoipZ3GGXqjRStMCkaSGM2R55j z5T6RQZeZBIzEDK1mQG0mX4nbYru bjogbGVmdDsgdmVydGlj RJzbEDdcW260MEBlvChsIaTtOTki ZyBEYXRlOiAgMDQvMDYvMjAyMzwv dGQ+VDLtCFE2vFnuCEWj uWQlQRkhXk4upMguiAwfZA9fFJTp jfjsBHRcoN1hFNRcdNWwnQuoYB5x IGBujnlze592ZrXdKLF1 QQQwzNVaL1XroT9oVoMwVGIuMJPp M9DhuCOcNSnoR460NVsvGqX9XRYc vuVuB5AkFDInsJzlCvZ8 i0A2Qz1Zx2IjgiicU2EbaQYkRwAa WefiGTi3Q3GkOqupuQX+CK25IVNk NJ82IKe4DAQ7bPlrEFjb SYLgJ2LrzA1lSqIbOOSpPRUjEun+ PHRhYmxlIHdpZHRoPScxMDAlJyBz eJlhSX0xAq4qTGHbQXLg fHclzOVaDeHqb3jsDLYkMHkpQX7z fZsxD8EgxNU7YHPbt6n6Sf73V51v J9EbdFH+NZXtcFV0cZX4 zP1tIeJuKyF0RWjnO830CpUbaZGo Sexlv6gzv8rctAk4XxK7NPNnjcOp jVtiPLT3b0ZnLn57B69z FJieQAZjASUuQMNmIHCicAeepn0b qM3sAd2+VCQodSZ5sRN6zH9bEzNm YzL4TGeyP018KiNefWYn Layqr9wor5ixrLg1RzWlVWBsgtXp lMefXOM1t9FeQx59X9ZyuDzmv9Sv Raa3uj41wGZle5D9qRW6 U0FzNNVtwsbboOMzvOhwRF1rIUWh aionQNGpwD1iUGZyU2f7UgZyAfE8 WEowO8XmghG4KHXbvRFi ZPRmyAYItW0zabgrq2kcwgshZgGy GIYgMIc3PXm9AXBkoZkmDoSwYVZ8 MaP3NGO7xARvyF5vdCwp fwcadX8bZcp+WEH8nPEjlSGRYB0i OjwvdGQ+ENNiPTJ0qGnpOXnvUYBu jW2uZCNuT9o9HjUiXxK1 ETfmU1WmzsX7RRNdpVJcDXSuhBXX aH0qzyrqd3nqivcyRjEiACZoCIh0 OBn6SGFdxXdiDwMiTMU8 YrE8CHR2nPGbcS1ipXngxbpxyW6d Oyc+VjjjnOlsSPK7OOs6G6LmAml3 LOPodKunPZ2vqFYhJOty Sg0rdRfkjKmdAZ4pBZOnnryyx361 NkOqf4xvSZNwuLFiSPxjFJK6I64l h1X7VTRqJIHrDZA1pUN8 qD3qgPokkatpqLQdcSabesOtdBiv BMzqMBzrZ239FLQpxPqzCfYiFXf0 Z0VeFna1KOAlhEfbYF3b lHUrKEuiMx9qeEiikMqcTO4kVGQr iixej821AeFge7quGAItxLHbYEes QSI8X00mi9X9WTLxKLEt FGP5aPF8mO9tpRbjjvtwvOFhxUii yzZfwLcsAFrmEJkqQ275XVTirKih HoKvdOg1H5LuIhb5JQOh hXnlHD1scNRhKGsqTz4djQgokWhd IY4yNYOrohvyt608ZdBin0ptXZHu jESaSSkpEUC7E39oj7Q8 PEZnPGOqASG1aJW9bH9ciMlmjrkv sPUelGbtyeNrfBewTQqaDDdzC454 IHRvcDsnPlBhdGllbnQg RHwqTUm8I7UjHzcsoLW+OA74ZBNx ZF90iIAlxTIvk7mlzCe7HsGcXWAd HQB9cIzsUWucm8SmPOAr S39ozTIkv7G1KWXayTrswQPhQmHh dPI7eK9rQOqcdxfed6xpjqjiCooz x4fygp70iK96M79wQDwq HNOcQAPxQMNcWYMygKkicd7keC3o Ii8+LFRfgFC4hYC7dS9hEJBhVgA0 TLyaV102PzYalSTiGqwy b6pxq3czcJx4VdQ1QHAcjlYcqExe HTZ6c5XcRr55T90pHEjeGYHpFENh OOHyNTFjiBztit5ufO9q Ii8+SCLroNS8jAY2kY8dAnDzJhL1 AWxtA179MgWcpUIeIggnG99eT3Dv dXA+SBAoVdx6QXWrvJfs UJ9skMIpKDwsQg7xAVT4StMqPjXx NXkjM8HnSINohgoiihtolKL7GUOl QWEwrO74El7xhOnwYIBq fNNGkS3brpocg8xbkparMyQvURDs LJw4HYv9AYHjrDzuSvFsUQZ9ZhL8 FYR5pBZajF0fiBttdgvk sL5kB1EeQKUjmzayBl57bN5uClIt AwU7TPuuXbb+T4CSOZTGJehsNMTE RVIgRzwvdGQ+PHRkIHN0 oLzvSFeiINCsvN3mXHRlI2e0MoKi GdG0KNrjL3BjGIHrtxjgUg62tK0b BmYgFrZ7UUdnV5WbyiA4 EDUvgEUpYXlfQVI5Z47sy4O7HXGp CPWwYMN4wKD0gI7nhAkqgeofsOWt dDsgdmVydGljYWwtYWxp L339PCIdlEkbLmC1LuK7HhT5OBl8 O0QlZvy0JIDcgUtqRC8ltWXkBTqn Mg9edIcewNjxZI3bQTMe jphxEZFglQ0jJRYtaGVztYbqUD5v WFGvpaezp710UsRwNBT3OOCpsOXk N5CstX0bGcXsIVUqRFEm Y7AkjLAuURquN237NCyfLlY9UCNi frTdR8AxGPRvjLpePiC6f3R7Hj72 MyBZZWFyczwvdGQ+PHRk NPD4lFbnNVwfTBHxpZ0pICCvC7f3 OqKjQjB2WNroU1KbMKSydkavQr99 zN6jZwEfRdI9FGaqN9Dm sjR1USNpaDReDXnnYKO1J42wl6K1 KRNuMYXdBXX4uGE1vD8xrGsjpfar bGVmdDsgdmVydGljYWwt IFbyR708ASTziUxpMu7veSL1E5Rb Nax8UBPtoFobZK8itLDeYAjnZc3w fOgeaUtzLS3gEXGrlday LHPjkG0pOAUrqJVszUckNG6qAERe acdim896OuQfJUP1IWRziBReH6Ma xM7jLnEhFMMaADCqH6Yu wIIoKMmqM491PDftPaA5CMItxqZv M3WxKRIxyNvzUjH2l6D5Qi2IwTEb A7VnY9f5L6MxEguewWD+ DW91TXQjYM49eSGtrRRxv0jezAf3 HoGyFCBgEPY6xNscSKdcf3JiVKDq F50ngWUfb0Z7SMYlmKxc pQKsOwZedDX8hX1lIYntkmcqd1ua mxagWkbvo6ifim23mZ71K72uBSmu ZHRoPSIzMCUiIHZhbGln xl1jdY0iSt6+MBIamVQ7iOX6eT0l VbVpUaC0NNshV435VvTswUZbEylb w1ijw3jdkXt6LuTtPGGv bpRmaOvjOVO2n0WcMg71W26fIZod IIQnUJHqXVObUUOavPisyp3afA1k Ii8+WY2rr3aupr31rD30 dHI+WMLbWLD4eKiyATujGPOpgY3u NZecZcE1CMJaSjFwvW38eDRsSKtz Pd3niSzzmFceEB1gOCIe uxtjn565DjKpw8yeBUVvrWOiUMpk LKM9B21uq7G5VNWrSMWhYTJ4fBV5 mC0ocVhyymzjsIOyaQtt pgSgkSrwGSioPQvtI411WTAmdBxu MzApqXNeL2bpxfAAGF2yXfaqfXW+ JQWoVSX3gSjhXNywYLUg pY8sEERnP4u8AeZmHnL2QBnyE5Ey jwX9HCQhvKXwSRZkgXEXtX4tozlm w7xhkokiNhGiUXFlPRj4 FPx8QKJzfCioSyZsLDL0QqR7AMQ3 qIKraY5yoYpcdwijaE4gTbs+RklO OjwvdGQ+XJMlSPE4sMfg PNbwIIQilC2fUJIzF2g3CjZhJrJ1 PEnsO4TrtgN5GMDtxRTxDGIztBLW bE2sblmwq4lsvmeyEyNa UNLpDHm9TBi1EGKztOavUbIzUGP8 DkJ0AQZ0bYBebO3qiUmmvvhcvL4u Oyc+TVJOOjwvdGQ+PHRk MUC2cWfsLVkfLNJfrU0wJZWzK8v3 OxZhGxL3CSyxC7YxtdQ6ETEgxIMm HQLxdZZIuP3cndryy3un gawzUkHdMFTmDJd2ZPh5BRYjoPve QfUkYRN0HvW5YBZ1jNUueL9qqCft btjjcE6oMek+XIL9OXM0 SF92QK04C8HtQursbANjzUW+PHRh YmxlIHdpZHRoPScxMDAlJyBzdHls GP3xOe3uROFtDMMsuVpf cHNlOiBj (more content not included)... Normal [facility] Discharge Instructionson Discharge Instructions [id number]:127 Normal [facility] Pathology Reporton Pathology Report [id number]#1.00CD:127 Normal [facility] Progress Note-Physicianon Progress Note-Physician Patient: RENA LEDESMA Age: 62 years Sex: Male : 1960 Associated Diagnoses: None Author: Guillermo Hou MD Preoperative Information Anesthesia history: Patient history: None. Family history+: None. Informed consent: Signed by patient. Re-evaluation prior to induction: Initial evaluation reviewed: No significant change. Review of Systems Eye: Negative. Ear/Nose/Mouth/Throat: Negative. Respiratory: Negative. Cardiovascular: Negative. Gastrointestinal: Negative. Genitourinary: Negative. Hematology/Lymphatics: Negative. Endocrine: Negative. Musculoskeletal: Negative. Neurologic: Negative. Health Status Allergies: Allergies (1) Active Reaction No Known Allergies None Documented Current medications: Home Medications (5) Active allopurinol 100 mg Tab aspirin 81 mg oral tablet 81 mg = 1 tab(s), Oral, Daily Gemtesa 75 mg oral tablet 75 mg = 1 tab(s), Oral, Daily Keflex 500 mg Cap 500 mg = 1 cap(s), Oral, Daily sildenafil 100 mg Tab 100 mg = 1 tab(s), Oral, As Directed , No qualifying data available Problem list: All Problems Anticoagulated / SNOMED CT 539717585 / Confirmed BMI 27.0-27.9,adult / SNOMED CT 1944812513 / Confirmed BPH with urinary obstruction / SNOMED CT 7924713552 / Confirmed Decreased sex drive / SNOMED CT 414187670 / Confirmed Eczema / SNOMED CT 56896218 / Confirmed Elevated PSA / SNOMED CT 2099630190 / Confirmed Erectile dysfunction / SNOMED CT 1240039582 / Confirmed Gout / SNOMED CT 914168334 / Confirmed Hemorrhoids / SNOMED CT 476026211 / Confirmed Other membranous urethral stricture, male / SNOMED CT 847730842 / Confirmed Panic attack / SNOMED CT 865420200 / Confirmed Personal history of bladder cancer / SNOMED CT 335040555 / Confirmed Retinal hemorrhage / SNOMED CT 86308285 / Confirmed Sleep apnea / SNOMED CT 152468711 / Confirmed Urinary urgency / SNOMED CT 930504421 / Confirmed, Active Problems (15) Anticoagulated BMI 27.0-27.9,adult BPH with urinary obstruction Decreased sex drive Eczema Elevated PSA Erectile dysfunction Gout Hemorrhoids Other membranous urethral stricture, male Panic attack Personal history of bladder cancer Retinal hemorrhage Sleep apnea Urinary urgency Histories Social History Social & Psychosocial Habits Alcohol 08/07/2019 Use: Current Frequency: 1-2 times per week 09/11/2019 Risk Assessment: Denies Alcohol Use 02/18/2023 Frequency: 1-2 times per week Substance Abuse Comment: denies - 02/18/2023 14:01 - Payton Marinelli Tobacco 09/11/2019 Risk Assessment: Denies Tobacco Use 11/10/2022 Tobacco Use: Former smoker, quit more Smokeless tobacco use: Never 02/18/2023 Tobacco Use: Former smoker, quit more . Physical Examination Airway: Mallampati classification: II (soft palate, fauces, uvula visible). Distance: Thyromental, Adequate. Respiratory: Lungs are clear to auscultation, Symmetrical chest wall expansion. Cardiovascular: Regular rhythm, Good pulses equal in all extremities. Gastrointestinal: Soft, Non-tender. Plan [place] [employer] (ASA) physical status classification: Class II. Anesthetic Preoperative Plan: Anesthesia General. [facility] Comment on above: Result Comment: Elec tronically Signed By: Savi WILLIAMSON, Guillermo Leahy\.br\Date and Time Signed: 02/25/23 12:43 EDT IntraOperative Documentson 0 02-24-2023 IntraOperative Documents [id number]#1.00CD:127 [facility] Consenton 02-19-2023 Consent [id number]#1.00CD:127 [facility] Main OR Intraoperative Recor don 02-19-2023 Main OR Intraoperative Record IntraOp Document Type FT Summary Primary Physician: Rafael Powell MD Finalized Date/Time: 02/19/23 10:58:11 Pt. Name: RENA LEDESMA/Sex: 1960 Male Med Rec #: [id number] Physician: Financial #: [id number] Pt. Type: E Room/Bed: / Admit/Disch: 02/18/23 13:45:39 - 02/18/23 19:40:00 Institution: Case Times FT Entry 1 Patient Times In Room 02/18/23 14:57:00 Out Room 02/18/23 15:26:00 Procedure Times Start 02/18/23 15:04:00 Stop 02/18/23 15:24:00 Anesthesia Times Start 02/18/23 14:57:00 Stop 02/18/23 15:26:00 Last Modified By: Sree RN, Albertina F 02/18/23 15:26:27 General Comments: 02/19/23 chart opened for charge review per Sammy Villavicencio RN. Case Attendance FT Entry 1 Entry 2 Entry 3 Case Attendee Sherry WILLIAMSON, Rafael Balbuena RN, Albertina Samayoa APRICOT PACKER, Sebastian Aquino Role Performed Surgeon - Primary Order Picker/Assembler - Primary APRICOT PACKER Time In 02/18/23 14:57:00 02/18/23 14:57:00 02/18/23 14:57:00 Time Out 02/18/23 15:26:00 02/18/23 15:26:00 02/18/23 15:26:00 Procedure EGD(.) EGD(.) EGD(.) Comments Dr. Hou supervising case Last Modified By: Sree RN, Albertina Balbuena RN, Albertina Balbuena RN, Albertina F 02/18/23 15:26:28 F 02/18/23 15:26:28 F 02/18/23 15:26:28 Entry 4 Entry 5 Entry 6 Case Attendee Baltazar NIETO, Leah Hawkins, Amish Hou MD, Guillermo Leahy Role Performed Scrub - Primary Staff - Other Anesthesiologist of Record Time In 02/18/23 14:57:00 02/18/23 14:57:00 02/18/23 14:57:00 Time Out 02/18/23 15:26:00 02/18/23 15:26:00 02/18/23 15:26:00 Procedure EGD(.) EGD(.) EGD(.) Comments help in room Last Modified By: Sree RN, Albertina Balbuena RN, Albertina Balbuena RN, Albertina F 02/18/23 15:26:28 F 02/18/23 15:26:28 F 02/18/23 15:26:28 Entry 7 Case Attendee Danica Vasquez RN Role Performed Staff - Other Time In 02/18/23 14:57:00 Time Out 02/18/23 15:26:00 Procedure EGD(.) Comments help in room Last Modified By: Albertina Balbuena RN 02/18/23 15:26:28 Perioperative Protocols FT Pre-Care Text: Implements protective measures prior to operative or invasive procedure, confirms identity before the operative or invasive procedure, verifies operative procedure, surgical site, and laterality Entry 1 Procedure(s) EGD(.) Patient Identity Birthday, ID Band Verified (select at Check, Patient least 2): Participation Consents / H and P Anesthesia Consent, Operative Site N/A Verified HandP, Surgery/Procedure Marking Verified Consent Surgical Site No Laterality Verified n/a Verified Procedure Verified Yes Correct Patient Yes Position Verified Availability Equipment, Medication Prep Dry n/a Verified (If Applicable) PreOp Antibiotic No Time Out Rafael Powell MD, Given Participants Albertina Balbuena RN, Cullinan CRNA, Nicholas A., Schafer CST, Shruthi Castro Micala E, Bahniwal MD, Christina Artis RN, Angela Time Out Complete 02/18/23 15:02:00 Outcomes Met? Yes Last Modified By: Albertina Balbuena RN 02/18/23 15:06:02 Post-Care Text: The patient is free from signs and symptoms of injury caused by extraneous objects Allergy Information FT Pre-Care Text: Verifies allergies Entry 1 Allergies Reviewed? Yes Allergies Reviewed Self/Patient With Outcomes Met? Yes Last Modified By: Albertina Balbuena RN 02/18/23 15:00:19 Post-Care Text: The patient received appropriate medication(s) safely administered during the perioperative period Surgical Procedures FT Entry 1 Procedure Description Procedure EGD Modifiers . Surgeon Description EGD with push enteroscopy, biopsy of GE junction lesion, foreign body retrieval Primary Procedure Yes Primary Surgeon Rafael Powell MD Start 02/18/23 15:04:00 Stop 02/18/23 15:24:00 Anesthesia Type General Surgical Service General Wound Class 2 - Clean-Contaminated Last Modified By: Albertina Balbuena RN 02/18/23 15:25:24 General Case Data FT Pre-Care Text: Classifies surgical wound, implements aseptic technique, initiates traffic control Entry 1 Case Information OR ENDO 1 FT Case Level Level 2 Wound Class 2 - Clean-Contaminated Specialty General ASA Class 2E Preop Diagnosis Foreign body Postop Same As Preop No Postop Diagnosis GE junction lesion, Outcomes Met? Yes foreign body removal Last Modified By: Albertina Balbuena RN 02/18/23 15:25:28 Post-Care Text: The patient is free from signs and symptoms of infection Skin Assessment (Pre Procedure) FT Pre-Care Text: Implements protective measures to prevent skin/ tissue injury due to thermal or mechanical sources Evaluates for signs and symptoms of physical injury to skin and tissue Entry 1 Skin Integrity Intact, [place], Warm, and Skin Abnormality No Dry Outcomes Met? Yes Last Modified By: Albertina Balbuena RN 02/18/23 15:00:44 Post-Care Text: The patient is free from signs and symptoms of (more content not included)... Normal [facility] Postoperative Documentson Postoperative Documents [id number]#[id number]:127 [facility] Consent for Treatmenton 01-28 Consent for Treatment [id number]#[id number]:127 [facility] Consultation Noteon 02-19-20 Consultation Note Chief Complaint pt c/o being at the dentist this morning and swallowing an instrument. pt was sent by dentist to see if for sure swallowed it or passed it. pt stated he didnt have a BM after the procedure. pt is asymptomatic. Reason for Consultation Foreign body swallowed during dental procedure History of Present Illness 62-year-old male with foreign body swallowed during dental procedure earlier today presents for foreign body removal denies abdominal pain melena or hematemesis at this time when he shows me the body he had a difficult at given to him by his dentist it appears to be a 1.5 inch sharp get flexible pit with a bright yellow handle and a very flexible tip on the called a cross line. The patient denies any history of esophageal varices bleeding disorders difficulties with anesthesia. Review of Systems Negative other than stated as above Physical Exam Vitals & Measurements T: 36.7 ?C(Temporal Artery) HR: 73(Monitored) RR: 18 BP: 164/94 SpO2: 97% HT: 178 cm WT: 86.5 kg No acute distress Regular rate rhythm Unlabored breathing Abdomen soft nontender nondistended No crepitus in the neck noted Assessment/Plan 62-year-old male who swallowed a sharp foreign body while at the dentist 1. Swallowed foreign body (T18.9XXA: Foreign body of alimentary tract, part unspecified, initial encounter) The foreign body was successfully retrieved from the proximal jejunum using push enteroscopy please see attached procedure note Orders: Sodium Chloride 0.9% intravenous solution 1,000 mL, 1,000 mL, IV, 20 mL/hr, Routine, Start date 02/18/23 14:25:00 EDT, 50 hour(s), Total volume (mL): 1,000, 86.5 kg, 2.07, m2 Pathology Tissue Exam Problem List/Past Medical History Ongoing Anticoagulated BMI 27.0-27.9,adult BPH with urinary obstruction Decreased sex drive Eczema Elevated PSA Erectile dysfunction Gout Hemorrhoids Other membranous urethral stricture, male Panic attack Personal history of bladder cancer Retinal hemorrhage Sleep apnea Urinary urgency Historical No qualifying data Procedure/Surgical History Cystoscope (11/19/2020), cysto (10/31/2019), Transrectal biopsy of prostate using ultrasound (US) guidance (08/22/2019), Cystoscopy (11/08/2018), Cystoscopy and transurethral biopsy of bladder (01/10/2015), Transurethral resection of prostate (01/10/2015), Cystoscopy (12/17/2014), Urodynamics (12/05/2014), Colonoscopy, Cystoscopy, Tonsillectomy. Medications Inpatient Sodium Chloride 0.9% IV Erika 1000 mL 1,000 mL, 1000 mL, IV Home allopurinol 100 mg Tab aspirin 81 mg oral tablet, 81 mg= 1 tab(s), Oral, Daily Gemtesa 75 mg oral tablet, 75 mg= 1 tab(s), Oral, Daily, 3 refills Keflex 500 mg Cap, 500 mg= 1 cap(s), Oral, Daily sildenafil 100 mg Tab, 100 mg= 1 tab(s), Oral, As Directed, 2 refills, Self Directed Allergies No Known Allergies Social History Alcohol - Denies Alcohol Use, 09/11/2019 1-2 times per week, 02/18/2023 Current, 1-2 times per week, 08/07/2019 Substance Abuse Tobacco - Denies Tobacco Use, 09/11/2019 Former smoker, quit more than 30 days ago Tobacco Use:., 02/18/2023 Former smoker, quit more than 30 days ago Tobacco Use:. Never Smokeless Tobacco Use:., 11/10/2022 Family History Primary malignant neoplasm of bladder: Father. Immunizations Vaccine Date Status influenza virus vaccine, inactivated 09/18/2022 Recorded SARS-CoV-2 (COVID-19) [id number] 09/18/2022 Recorded SARS-CoV-2 (COVID-19) mRNA BNT-162b2 vax 09/26/2021 Recorded influenza virus vaccine, inactivated 09/01/2021 Recorded SARS-CoV-2 (COVID-19) mRNA BNT-162b2 vax 03/17/2021 Recorded SARS-CoV-2 (COVID-19) mRNA BNT-162b2 vax 02/20/2021 Recorded influenza virus vaccine, inactivated 09/09/2020 Recorded influenza virus vaccine, inactivated 09/02/2020 Recorded influenza virus vaccine, inactivated 09/13/2019 Recorded influenza virus vaccine, inactivated 09/20/2018 Recorded influenza, unspecified formulation 09/06/2017 Recorded influenza virus vaccine, inactivated 09/18/2015 Recorded influenza virus vaccine, inactivated 08/28/2014 Recorded influenza virus vaccine, inactivated 09/04/2010 Recorded hepatitis A-hepatitis B vaccine 07/03/2010 Recorded hepatitis A-hepatitis B vaccine 01/30/2010 Recorded hepatitis A-hepatitis B vaccine 01/02/2010 Recorded The patient may go home after 4 hours of observation, stable vital signs and p.o. challenge with water Normal [facility] Comment on above: Result Comment: Elec tronically Signed By: Sherry WILLIAMSON, Rafael [email or web address]\Date and Time Signed: 02/18/23 15:48 EDT ED Note-Physicianon 02-19-20 ED Note-Physician Basic Information Time Seen: Kenji Avalos M.D. 02/18/2023 13:57 Chief Complaint pt c/o being at the dentist this morning and swallowing an instrument. pt was sent by dentist to see if for sure swallowed it or passed it. pt stated he didnt have a BM after the procedure. pt is asymptomatic. History of Present Illness The patient is a 62-year-old male who presented to the emergency room for swallowed foreign body. The patient states that he was at the dentist office earlier today and getting a root canal. He swallowed the file while he was getting the root canal. The patient denies any difficulty swallowing. The patient denies any sensation of foreign body in his throat. He denies any cough. The patient denies any abdominal pain. He denies any other associated symptoms. Review of Systems Additional ROS info: Except as noted in the above Review of Systems and in the History of Present Illness all other systems have been reviewed and are negative or noncontributory. Physical Exam Vitals & Measurements T: 36.7 ?C(Oral) HR: 78(Peripheral) RR: 16 BP: 156/89 SpO2: 98% HT: 178 cm WT: 86.5 kg BMI: 27.3 General: alert, no acute distress Skin: warm, dry Head: no trauma, normocephalic Neck: Trachea midline Eye: normal conjunctiva, sclera clear ENMT: Oral mucosa moist, no pharyngeal erythema or exudate Cardiovascular: regular rate and rhythm Respiratory: Lungs CTA, respirations non labored, breath sounds equal Gastrointestinal: soft, non distended, no tenderness, no guarding Extremities: no deformity, no trauma Neurological: Alert and oriented, speech normal, no focal neuro deficits Psychiatric: cooperative, affect appropriate for age, Medical Decision Making MEDICAL DECISION MAKING Number and Complexity of Problems Differential Diagnosis: [] [facility] Data External documents reviewed: [] My EKG interpretation: [] My CT interpretation: [] My X-ray interpretation: [] My Ultrasound interpretation: [] Decision rules/scores evaluated: [] Discussed with: Dr. Powell Treatment and Disposition ED Course: Patient presented with swallowed foreign body. He swallowed a file of the dentist while getting a root canal. The patient does not appear to be on any acute distress. The x-ray of the chest shows no radiopaque foreign body. The x-ray of the abdomen showed a radiopaque foreign body possible in the stomach. The case was discussed with Dr. Powell who reviewed the images himself and will take the patient to the endoscopy suite for foreign body removal. Shared decision making: [] Code status: [] Assessment/Plan 1. Swallowed foreign body (T18.9XXA: Foreign body of alimentary tract, part unspecified, initial encounter) Orders: XR Abdomen 1 View XR Chest 2 Views Disposition Plan Patient Discharge Condition Stable Discharge Disposition Taken to the endoscopy suite Discharge Prescription List Prescriptions No active prescription medications Follow-up No qualifying data available Problem List/Past Medical History Ongoing Anticoagulated BMI 27.0-27.9,adult BPH with urinary obstruction Decreased sex drive Eczema Elevated PSA Erectile dysfunction Gout Hemorrhoids Other membranous urethral stricture, male Panic attack Personal history of bladder cancer Retinal hemorrhage Sleep apnea Urinary urgency Historical No qualifying data Procedure/Surgical History Cystoscope (11/19/2020), cysto (10/31/2019), Transrectal biopsy of prostate using ultrasound (US) guidance (08/22/2019), Cystoscopy (11/08/2018), Cystoscopy and transurethral biopsy of bladder (01/10/2015), Transurethral resection of prostate (01/10/2015), Cystoscopy (12/17/2014), Urodynamics (12/05/2014), Colonoscopy, Cystoscopy, Tonsillectomy. Medications Inpatient No active inpatient medications Home allopurinol 100 mg Tab aspirin 81 mg oral tablet, 81 mg= 1 tab(s), Oral, Daily Gemtesa 75 mg oral tablet, 75 mg= 1 tab(s), Oral, Daily, 3 refills Keflex 500 mg Cap, 500 mg= 1 cap(s), Oral, Daily sildenafil 100 mg Tab, 100 mg= 1 tab(s), Oral, As Directed, 2 refills Allergies No Known Allergies Social History Alcohol - Denies Alcohol Use, 09/11/2019 1-2 times per week, 02/18/2023 Current, 1-2 times per week, 08/07/2019 Substance Abuse Tobacco - Denies Tobacco Use, 09/11/2019 Former smoker, quit more than 30 days ago Tobacco Use:., 02/18/2023 Former smoker, quit more than 30 days ago Tobacco Use:. Never Smokeless Tobacco Use:., 11/10/2022 Family History Primary malignant neoplasm of bladder: Father. Lab Results No qualifying data available. Diagnostic Results XR Chest 2 Views * Preliminary * 02/18/23 14:19:48 : No radiopaque foreign body seen Read By: Bailey Woodard, Kenji Obrien XR Abdomen 1 View * Preliminary * 02/18/23 14:19:37 : Radiopaque foreign body possible stomach Read By: Mckayla (more content not included)... [facility] Comment on above: Result Comment: Elec tronically Signed By: Bailey Woodard, Kenji Obrien\.br\Date and Time Signed: 02/18/23 14:23 EDT Main OR PACU I Recordon 01-28 Main OR PACU I Record PACU Phase I Document Type FT Summary Primary Physician: Rafael Powell MD Finalized Date/Time: 02/18/23 16:25:13 Pt. Name: RENA LEDESMA/Sex: 1960 Male Med Rec #: [id number] Physician: Financial #: [id number] Pt. Type: E Room/Bed: / Admit/Disch: 02/18/23 13:45:39 - Institution: Case Times PACU I FT Pre-Care Text: Identifies barriers to communication and implements measures to provide psychological support Develops individualized plan of care, and ensures continuity of care Maintains patient's dignity and privacy, and maintains patient confidentiality Identifies and reports philosophical, cultural, and spiritual beliefs and values Identifies individual values and wishes concerning care Implements aseptic technique, and administers prescribed antibiotic therapy and immunizing agents as ordered Evaluates postoperative tissue perfusion Implements thermoregulation measures, and monitors body temperature Evaluates postoperative respiratory status Evaluates postoperative cardiac status Evaluates postoperative neurological status Assesses pain control, collaborated in initiating patient-controlled analgesia and implements alternative methods of pain control Verifies allergies, administers prescribed medications and solutions, evaluates response to medications Entry 1 In PACU I 02/18/23 15:26:00 Discharge from PACU 02/18/23 15:56:00 I Outcomes Met? Yes Last Modified By: MAIKELMINA SHERIFF RN 02/18/23 16:25:01 Post-Care Text: The patient demonstrates knowledge of the expected response to the operative or invasive procedure The patient's care is consistent with the individualized perioperative plan of care The patient's right to privacy is maintained The patient's value system, lifestyle, ethnicity, and culture are considered, respected, and incorporated into the perioperative plan of care The patient participates in decisions affecting his or her perioperative plan of care The patient is free from signs and symptoms of infection The patient has wound/tissue perfusion consistent with or improved from baseline levels established preoperatively The patient is at or returning to normothermia at the conclusion of the immediate postoperative period The patient's respiratory function is consistent with or improved from baseline levels established preoperatively The patient's cardiovascular status is consistent with or improved from baseline levels established preoperatively The patient's cardiovascular status is consistent with or improved from baseline levels established preoperatively The patient demonstrates and/or reports adequate pain control throughout the perioperative period The patient received appropriate medication(s), safely administered during the perioperative period Acuity Level PACU I FT Entry 1 Start Time 02/18/23 15:26:00 Stop Time 02/18/23 15:56:00 Acuity Level Acuity Level I Last Modified By: MINA KO RN 02/18/23 16:25:10 Finalized By: MINA KO RN Document Signatures Signed By: MINA KO RN 02/18/23 16:25 Normal [facility] Main OR PACU II Recordon Main OR PACU II Record PACU Phase II Document Type FT Summary Primary Physician: Rafael Powell MD Finalized Date/Time: 02/18/23 19:55:20 Pt. Name: RENA LEDESMA/Sex: 1960 Male Med Rec #: [id number] Physician: Financial #: [id number] Pt. Type: E Room/Bed: / Admit/Disch: 02/18/23 13:45:39 - 02/18/23 19:40:00 Institution: Case Times PACU II FT Pre-Care Text: Identifies barriers to communication and implements measures to provide psychological support and determines knowledge level Develops individualized plan of care, and ensures continuity of care Maintains patient's dignity and privacy, and maintains patient confidentiality Identifies and reports philosophical, cultural, and spiritual beliefs and values Identifies individual values and wishes concerning care administers prescribed antibiotic therapy and immunizing agents as ordered, Evaluates postoperative tissue perfusion Implements thermoregulation measures, and monitors body temperature Evaluates postoperative respiratory status Evaluates postoperative cardiac status Evaluates postoperative neurological status Assesses pain control, collaborated in initiating patient-controlled analgesia and implements alternative methods of pain control Verifies allergies, administers prescribed medications and solutions, evaluates response to medications Entry 1 In PACU II 02/18/23 16:50:00 Discharge from PACU 02/18/23 19:40:00 II Outcomes Met? Yes Last Modified By: Damian Conway 02/18/23 19:52:47 Post-Care Text: The patient demonstrates knowledge of the expected response to the operative or invasive procedure The patient's care is consistent with the individualized perioperative plan of care The patient's right to privacy is maintained The patient's value system, lifestyle, ethnicity, and culture are considered, respected, and incorporated into the perioperative plan of care The patient participates in decisions affecting his or her perioperative plan of care. The patient is free from signs and symptoms of infection The patient has wound/tissue perfusion consistent with or improved from baseline levels established preoperatively The patient is at or returning to normothermia at the conclusion of the immediate postoperative period The patient's respiratory function is consistent with or improved from baseline levels established preoperatively The patient's cardiovascular status is consistent with or improved from baseline levels established preoperatively The patient's neurological status is consistent with or improved from baseline levels established preoperatively The patient demonstrates and/or reports adequate pain control throughout the perioperative period The patient received appropriate medication(s), safely administered during the perioperative period Finalized By: Damian Conway Document Signatures Signed By: Damian Conway 02/18/23 19:55 Normal [facility] Main OR Preoperative Recordo n 02-18-2023 Main OR Preoperative Record Holding Area Document Type FT Summary Primary Physician: Rafael Powell MD Finalized Date/Time: 02/18/23 14:40:37 Pt. Name: RENA LEDESMA/Sex: 1960 Male Med Rec #: [id number] Physician: Financial #: [id number] Pt. Type: E Room/Bed: / Admit/Disch: 03/23/23 13:45:39 - Institution: Case Times Holding FT Pre-Care Text: Verifies consent for planned procedure, identifies individual values and wishes concerning care, includes family members in perioperative teaching Secures patient's records' belongings, and valuables, maintains patient's dignity and privacy, and maintains patient confidentiality Entry 1 In Holding 02/18/23 14:29:00 Outcomes Met? Yes Last Modified By: Humera Montaño RN 02/18/23 14:33:12 Post-Care Text: The patient participates in decisions affecting his or her perioperative plan of care The patient's right to privacy is maintained Surgery Checklist FT Entry 1 Patient Birthday, ID Band Procedure History and Physical, Identification: Check, Patient Verification: Surgical Consent, With Participation Patient NPO after Midnight: No Date/Time: 02/18/23 12:00:00 Personal Items: Glasses, Jewelry Personal Items Necklace, fitbit, ring, Comment: glassess Limitations: Vision Complaints of Pain: No Pain Comment: Ring Operative Site n/a Marking: Availability Equipment Verified: Does Patient Smoke No Patient states Yes Comment - Adult - Tez postop adult Supervision supervision available Case Cancelled in No Holding Area see comments below for reason Last Modified By: Humera Montaño RN 02/18/23 14:34:12 Finalized By: Humera Montaño RN Document Signatures Signed By: Humera Montaño RN 02/18/23 14:34 Humera Montaño RN 02/18/23 14:40 Normal [facility] Monitor Recordon 02-18-2023 Monitor Record [id number]:127 Normal [facility] Monitor Record [id number]:127 Normal [facility] Operative Reporton Operative Report Patient: MELISSA LEDESMA Age: 62 years Sex: Male : 1960 Associated Diagnoses: None Author: Sherry WILLIAMSON, Rafael Freed Pre-Procedure Procedure Date 02/18/2023 15:49:00 . Procedure Type: Push enteroscopy. Procedure provider Performed by Rafael Powell MD. Current history and physical Documented on chart. Informed Consent After discussing the rationale, risks and benefits, and alternatives to this procedure, the patient provided signed consent for the procedure. Pre-procedure diagnosis: Removal of foreign body. Medications (Selected) Inpatient Medications Ordered Sodium Chloride 0.9% IV Erika 1000 mL 1,000 mL: 1,000 mL, IV, 20 mL/hr, Routine, Start date 02/18/23 14:25:00 EDT, 50 hour(s), Total volume (mL): 1,000, 86.5 kg, 2.07, m2 Prescriptions Prescribed Gemtesa 75 mg oral tablet: 75 mg = 1 tab(s), Oral, Daily, X 90 day(s), # 90 tab(s), Refills(s) 3, Pharmacy: [facility], 177, cm, 09/22/21 14:37:00 EDT, Height/Length Dosing, 87, kg, 09/22/21 14:37:00 EDT, Weight Dosing Keflex 500 mg Cap: 500 mg = 1 cap(s), Oral, Daily, Take 1 tab day before procedure and 1 after procedure, # 2 cap(s), Refills(s) 0, Pharmacy: [facility]/pharmacy #[id number], 177, cm, 09/28/22 14:37:00 EDT, Height/Length Dosing, 87, kg, 09/28/22 14:37:00 EDT, Weight Dosing sildenafil 100 mg Tab: 100 mg = 1 tab(s), Oral, As Directed, 1 hour before sexual activity, # 30 tab(s), Refills(s) 2, Pharmacy: [id number], 177, cm, 09/22/21 14:37:00 EDT, Height/Length Dosing, 87, kg, 09/22/21 14:37:00 EDT, Weight Dosing Documented Medications Documented allopurinol 100 mg Tab: 30 EA, TAKE 1 TABLET BY MOUTH EVERY DAY, Refills(s) 0 aspirin 81 mg oral tablet: 81 mg = 1 tab(s), Oral, Daily ASA Classification: Class II. . Monitoring: See anesthesia record. . Procedure The procedure was performed in the hospital. See anesthesia record for sedation given during procedure. The patient was positioned starting in the left lateral decubitus position. Endoscope type used was Pediatric colonoscope, introduced orally, advanced to the proximal jejunum. No difficulty was encountered during the procedure. Views were excellent. Esophageal biopsies were taken of the gastroesophageal junction. Findings An esophageal nodule was identified at the gastroesophageal junction. A single biopsy was collected. The squamocolumnar junction appeared regular. Examination of the stomach revealed a normal stomach. Examination of the duodenum revealed a normal duodenum. A jejunal foreign body was identified at the proximal jejunum. The foreign body is described as Flexible sharp needle like piece of dental equipment measuring about an inch and a half. Intervention(s) for jejunal foreign body included retrieving the foreign body with a snare. Jejunal foreign body: After the foreign body was removed from the patient's GI tract we readvanced the scope to the area where it had been found and then further distally slowly backing the scope out and confirming no evidence of perforation or bleeding along the site nor along the tract of removal.. Post-Procedure Complications: none. Estimated blood loss: none. Specimens: sent to pathology. Devices/ implants: none left in place. Impression and Plan EGD: Course: Progressing as expected. [facility] Comment on above: Result Comment: Elec tronically Signed By: Sherry WILLIAMSON, Rafael Almanzar.br\Date and Time Signed: 02/18/23 15:52 EDT Pre-Arrival Noteon Pre-Arrival Note Pre-Arrival Summary Name: rena montaño, Current Date: 02/18/2023 13:50:27 EDT Gender: Female Date of : 1960 Age: 62 years Pre-Arrival Type: EMS ETA: 02/18/2023 14:08:00 EDT Primary Care Physician: Presenting Problem: swallowed file at dentist Pre-Arrival User: Catalino STEINER, Adal Agustin Referring Source: Location: [place] Completion Date/Time: 02/18/2023 13:38:00 [facility] Emergency Department Pre-Hospital Report Form Vital Signs: Pre-Hospital Report: Treatment in Route: Response to Treatment: Misc. Issues: Normal [facility] Progress Note-Physicianon Progress Note-Physician Patient: RENA LEDESMA Age: 62 years Sex: Male : 1960 Associated Diagnoses: None Author: Savi WILLIAMSON, Guillermo Leahy Postoperative Information Postoperative disposition: Postoperative disposition: To PACU. Optimetrix number: Optimetrix number [id number]. Anesthetic utilized: General. Physical Examination Vital Signs 02/18/2023 19:14 EDT Heart Rate Monitored 67 bpm SpO2 99 % 02/18/2023 19:14 EDT Respiratory Rate 16 br/min 02/18/2023 19:14 EDT Systolic Blood Pressure 166 mmHg HI Diastolic Blood Pressure 89 mmHg Mean Arterial Pressure, Monitered 115 mmHg 02/18/2023 19:14 EDT Temperature Temporal Artery 36.5 DegC 02/18/2023 18:15 EDT Heart Rate Monitored 62 bpm SpO2 98 % 02/18/2023 18:14 EDT Respiratory Rate 16 br/min 02/18/2023 18:14 EDT Systolic Blood Pressure 160 mmHg HI Diastolic Blood Pressure 87 mmHg Mean Arterial Pressure, Monitered 112 mmHg 02/18/2023 18:14 EDT Temperature Temporal Artery 36.5 DegC 02/18/2023 17:07 EDT Heart Rate Monitored 61 bpm SpO2 98 % 02/18/2023 17:07 EDT Respiratory Rate 18 br/min 02/18/2023 17:07 EDT Systolic Blood Pressure 144 mmHg HI Diastolic Blood Pressure 83 mmHg Mean Arterial Pressure, Monitered 103 mmHg 02/18/2023 17:07 EDT Temperature Temporal Artery 36.7 DegC Pain Assessment: Pain Assessment 02/18/2023 15:51 EDT Numeric Pain Scale 0 = No pain Numeric Pain Score 0 02/18/2023 15:40 EDT Numeric Pain Scale 0 = No pain Numeric Pain Score 0 02/18/2023 13:50 EDT Patient Preferred Pain Tool Numeric rating Numeric Pain Scale 0 = No pain Numeric Pain Score 0 . General: Awake, Alert, Appropriate. Respiratory: Adequate air exchange, Equal bilateral chest wall expansion. Cardiovascular: Stable. Neurological: At Baseline. Assessment Anesthetic outcome No anesthetic complications noted. Review / Management Condition: Stable. Plan Transfer/Discharge: Transfer/Discharge Discharge when meets criteria ( To home ). [facility] Comment on above: Result Comment: Elec tronically Signed By: Savi WILLIAMSON, Guillermo Johnson\Date and Time Signed: 02/18/23 20:56 EDT XR Abdomen 1 Viewon 02-19-20 23 XR Abdomen 1 View Exam Date/Time: 02/18/2023 14:16 EDT Reason for Exam: Swallowed foreign body;Other (please specify) Report IMPRESSION: 3.2 CM LINEAR LINEAR RADIOPAQUE FOREIGN BODY PROJECTS OVER THE LEFT UPPER QUADRANT IN THE EXPECTED LOCATION OF THE DUODENOJEJUNAL JUNCTION. EXAMINATION: XR Abdomen 1 View HISTORY: Swallowed foreign body TECHNIQUE: Frontal view of the abdomen and pelvis COMPARISON: None available FINDINGS: 3.2 cm linear linear radiopaque foreign body projects over the left upper quadrant in the expected location of the duodenojejunal junction. No calcifications identified over the bilateral renal shadows or expected course of the ureters. Multiple pelvic phleboliths. Nonobstructive bowel gas pattern. No evidence of free air on these supine radiographs. No acute osseous abnormality. Degenerative changes of the spine and both hips. Ordering Provider: Kenji Avalos FINAL REPORT Dictated: 02/18/2023 2:24 pm Jose Hooker DO Signed (Electronic Signature): 02/18/2023 2:24 pm Signed by: Jose Hooker DO Transcribed by: DP Technologist: DPR Technical Comments Radiation Dose: Ka,r in mGy = na DAP = na Normal [facility] XR Chest 2 Viewson 3 XR Chest 2 Views Exam Date/Time: 02/18/2023 14:16 EDT Reason for Exam: Swallowed foreign body;Other (please specify) Report IMPRESSION: NO RADIOGRAPHIC EVIDENCE OF ACUTE INTRATHORACIC PROCESS. EXAMINATION: XR Chest 2 Views HISTORY: Swallowed foreign body TECHNIQUE: Frontal and lateral views of the chest. COMPARISON: None available FINDINGS: No radiopaque foreign body. Cardiomediastinal silhouette is within normal limits. No pneumothorax, pleural effusion, or consolidation. Bones of the thorax appear intact. Ordering Provider: Kenji Avalos FINAL REPORT Dictated: 02/18/2023 2:23 pm Jsoe Hooker DO Signed (Electronic Signature): 02/18/2023 2:23 pm Signed by: Jose Hooker DO Transcribed by: MANA Technologist: JAXSON Technical Comments Radiation Dose: Ka,r in mGy = na DAP = na Normal [facility] TESTOSTERONE, TOTALon 2020 Testosterone [Mass/Vol] 340 ng/dL Normal 264-916 [facility] Comment on above: Result Comment: Adul t male reference interval is based on a population of healthy nonobese males (BMI <30) between 19 and 39 years old. Blue, et.al. JCEM 2017,102;4986-1147. PMID: [id number]. Performed By: #### T ESTTOT #### [facility] [address] [place] [address] Yusef Noel COVID-19 PCRon 08-20-2020 SARS-CoV-2, [place] Not Detected Normal Not Detected [facility] Comment on above: Result Comment: This nucleic acid amplification test was developed and its performance characteristics determined by [employer]. Nucleic acid amplification tests include PCR and TMA. This test has not been FDA cleared or approved. This test has been authorized by FDA under an Emergency Use Authorization (EUA). This test is only authorized for the duration of time the declaration that circumstances exist justifying the authorization of the emergency use of in vitro diagnostic tests for detection of SARS-CoV-2 virus and/or diagnosis of COVID-19 infection under section 564(b)(1) of the Act, 21 U.S.C. 360bbb-3(b) (1), unless the authorization is terminated or revoked sooner. When diagnostic testing is negative, the possibility of a false negative result should be considered in the context of a patient's recent exposures and the presence of clinical signs and symptoms consistent with COVID-19. An individual without symptoms of COVID-19 and who is not shedding SARS-CoV-2 virus would expect to have a negative (not detected) result in this assay. Performed By: #### C VDPCR #### [facility] [address] [place] [address] Yusef Noel COVID-19 PCRon 08-10-2020 SARS-CoV-2, [place] Not Detected Normal Not Detected [facility] Comment on above: Result Comment: This nucleic acid amplification test was developed and its performance characteristics determined by [employer]. Nucleic acid amplification tests include PCR and TMA. This test has not been FDA cleared or approved. This test has been authorized by FDA under an Emergency Use Authorization (EUA). This test is only authorized for the duration of time the declaration that circumstances exist justifying the authorization of the emergency use of in vitro diagnostic tests for detection of SARS-CoV-2 virus and/or diagnosis of COVID-19 infection under section 564(b)(1) of the Act, 21 U.S.C. 360bbb-3(b) (1), unless the authorization is terminated or revoked sooner. When diagnostic testing is negative, the possibility of a false negative result should be considered in the context of a patient's recent exposures and the presence of clinical signs and symptoms consistent with COVID-19. An individual without symptoms of COVID-19 and who is not shedding SARS-CoV-2 virus would expect to have a negative (not detected) result in this assay. Performed By: #### C VDPCR #### [facility] [address] [place], [place] [address] Yusef Noel FOOT RIGHT 3 [facility] 7 FOOT RIGHT 3 [facility] [place] [place] [address] Patient Name: RENA LEDESMA : 1960Sex: MAge: Race: WhiteMRN: [id number]. Location: 84Patient Status: Date: 08/19/2017 12:45:00 PMCompleted Date: 08/19/2017 12:47 PMRequesting Provider: MARYLIN SARGENT Attending Provider: Report Copy To: Signs & Symptoms: S92.421D Disp fx of dist phalanx of r great toe, 7thD [id number]: AthenaComments: , , , Ordering Provider - MARYLIN SARGENT PA-C , Exam: FOOT RIGHT 3 VWSAccession #: [id number] ELLEN T RIGHT 3 VWS 08/19/2017 12:47 PM EDT SIGNS AND SYMPTOMS: S92.421D Disp fx of dist phalanx of r great toe, 7thD I10 TECHNOLOGIST COMMENTS: rt foot injury 02/12 check healing QUESTION FOR THE RADIOLOGIST: , , , Ordering Provider - MARYLIN SARGENT PA-C , PROTOCOL: AP,Lateral and Oblique views were obtained. COMPARISON: May 21, 2017 FINDINGS: There is no significant healing of the distal phalanx fracture great toe. Unchanged alignment. Degenerative changes as before. IMPRESSION: Limited healing of the nondisplaced distal phalanx fracture great toe. Electronically signed by:Blake Mclean M.D.. Transcribed by: [email or web address], User Resident: Electronically Signed by: BLAKE MCLEAN @ 08/19/2017 04:09 PM Normal [facility] Comment on above: Order Comment: , , = ========= , Ordering Provider - MARYLIN SARGENT PA-C , Vital Signs Date Time Vital Sign Value Performing Clinician Facility 09-24-2023 08:16-0400 Blood Pressure Location Davey JARA [facility] 09-24-2023 08:16-0400 Diastolic blood pressure 87 mm[Hg] Davey JARA [facility] 09-24-2023 08:16-0400 Heart rate 68 /min Davey JARA [facility] 09-24-2023 08:16-0400 Respiratory rate 16 /min Davey JARA [facility] 09-24-2023 08:16-0400 Systolic blood pressure 133 mm[Hg] Davey JARA [facility] 07-12-2023 14:06-0400 Blood Pressure Location Garima Jaren [place] 07-12-2023 14:06-0400 Body temperature 97.16 [degF] Garima Eastman [place] 07-12-2023 14:06-0400 Diastolic blood pressure 84 mm[Hg] Garima Eastman [place] 07-12-2023 14:06-0400 Heart rate 72 /min Garima Jaren [place] 07-12-2023 14:06-0400 Systolic blood pressure 137 mm[Hg] Garima Eastman [place] 05-05-2023 08:17-0400 Diastolic blood pressure 80 mm[Hg] Delgado SALAM [place] 05-05-2023 08:17-0400 Mean blood pressure 105 mm[Hg] Delgado SALAM [place] 05-05-2023 08:17-0400 Systolic blood pressure 154 mm[Hg] Delgado SALAM [place] 05-05-2023 08:15-0400 Blood Pressure Location Delgado SALAM [place] 05-05-2023 08:15-0400 Diastolic blood pressure 80 mm[Hg] Delgado SALAM [place] 05-05-2023 08:15-0400 Heart rate 79 /min Delgado SALAM [place] 05-05-2023 08:15-0400 Respiratory rate 16 /min Delgado SALAM [place] 05-05-2023 08:15-0400 Systolic blood pressure 154 mm[Hg] Delgado SALAM [place] 02-18-2023 19:14-0400 Heart rate 67 /min [facility] 02-18-2023 19:14-0400 SaO2% (BldA) [Mass fraction] 99 % [facility] 02-18-2023 19:14-0400 Respiratory rate 16 /min [facility] 02-18-2023 19:14-0400 Diastolic blood pressure 89 mm[Hg] [facility] 02-18-2023 19:14-0400 Mean blood pressure 115 mm[Hg] [facility] 02-18-2023 19:14-0400 Systolic blood pressure 166 mm[Hg] [facility] 02-18-2023 19:14-0400 Body temperature 97.7 [degF] [facility] 02-18-2023 18:15-0400 Heart rate 62 /min [facility] 02-18-2023 18:15-0400 SaO2% (BldA) [Mass fraction] 98 % [facility] 02-18-2023 18:14-0400 Respiratory rate 16 /min [facility] 02-18-2023 18:14-0400 Diastolic blood pressure 87 mm[Hg] [facility] 02-18-2023 18:14-0400 Mean blood pressure 112 mm[Hg] [facility] 02-18-2023 18:14-0400 Systolic blood pressure 160 mm[Hg] [facility] 02-18-2023 18:14-0400 Body temperature 97.7 [degF] [facility] 02-18-2023 17:07-0400 Heart rate 61 /min [facility] 02-18-2023 17:07-0400 SaO2% (BldA) [Mass fraction] 98 % [facility] 02-18-2023 17:07-0400 Respiratory rate 18 /min [facility] 02-18-2023 17:07-0400 Diastolic blood pressure 83 mm[Hg] [facility] 02-18-2023 17:07-0400 Mean blood pressure 103 mm[Hg] [facility] 02-18-2023 17:07-0400 Systolic blood pressure 144 mm[Hg] [facility] 02-18-2023 17:07-0400 Body temperature 98.06 [degF] [facility] 02-18-2023 15:51-0400 Mean blood pressure 96 mm[Hg] [facility] 02-18-2023 15:51-0400 Respiratory rate 20 /min [facility] 02-18-2023 15:40-0400 Mean blood pressure 80 mm[Hg] [facility] 02-18-2023 15:40-0400 Respiratory rate 15 /min [facility] 02-18-2023 15:35-0400 Mean blood pressure 79 mm[Hg] [facility] 02-18-2023 15:35-0400 Respiratory rate 16 /min [facility] 02-18-2023 14:34-0400 Blood Pressure Location [facility] 02-18-2023 13:50-0400 Body temperature 98.06 [degF] [facility] 02-18-2023 13:50-0400 Heart rate 78 /min [facility] Encounters Encounter Date Encounter Type Care Provider Facility Start: 11-30-2023 End: 12-01-2023 ambulatory Davey JARA [facility] Start: 11-30-2023 End: 11-30-2023 Lab Drop off Davey JARA [facility] Start: 11-30-2023 End: 12-01-2023 ambulatory Davey JARA Facility:[facility] Start: 11-30-2023 End: 11-30-2023 Patient encounter procedure Davey JARA [facility] Start: 11-26-2023 End: 11-27-2023 ambulatory Davey JARA Facility:[facility] Start: 11-26-2023 End: 11-26-2023 Patient encounter procedure Davey JARA [facility] Start: 11-24-2023 End: 11-24-2023 ambulatory AMRIK MUNROE Not Available Start: 11-11-2023 End: 11-12-2023 ambulatory Jerica X Kristal Facility[facility] Start: 11-11-2023 End: 11-12-2023 ambulatory Jerica X Orzech Facility:[facility] [place] Start: 11-09-2023 End: 11-10-2023 ambulatory ROSALINDA CHAPMAN Facility[facility] Start: 11-09-2023 End: 12-12-2023 Lab Drop off ROSALINDA CHAPMAN [facility] Start: 11-08-2023 End: 11-09-2023 ambulatory Dvaey JARA Facility: [facility] Start: 11-08-2023 End: 11-08-2023 Patient encounter procedure Davey JARA [facility] Start: 09-24-2023 End: 09-25-2023 ambulatory Davey JARA Facility: [facility] Start: 09-24-2023 End: 09-24-2023 Patient encounter procedure [facility] JARA [facility] Start: 07-12-2023 End: 07-13-2023 ambulatory [facility] Eastman [facility] Start: 07-12-2023 End: 07-12-2023 Patient encounter procedure Garima Eastman [facility] Start: 07-08-2023 End: 07-09-2023 ambulatory [facility] Facility:[facility] Start: 06-18-2023 End: 06-18-2023 ambulatory [facility] Facility[facility] Start: 05-05-2023 End: 05-06-2023 ambulatory [facility] Facility[facility] Start: 05-05-2023 End: 05-05-2023 Patient encounter procedure Delgado SALAM [facility] Start: 03-10-2023 ambulatory Jerica Giraldo Facility: [facility] Start: 02-18-2023 End: 02-18-2023 Emergency department patient visit Rafael Powell Facility[facility] Start: 02-18-2023 End: 02-18-2023 Emergency department patient visit Kenji Avalos [facility] Start: 01-22-2021 End: 01-23-2021 Patient encounter procedure THOMAS CASTROY Facility:[facility] Start: 08-19-2020 End: 08-20-2020 Patient encounter procedure THOMAS HOY Facility:[facility] Start: 08-09-2020 End: 08-10-2020 Patient encounter procedure DANICA MUNROE Facility:[facility] Start: 08-19-2017 End: 08-20-2017 Ambulatory MARYLIN SARGENT Facility:[facility] Procedures Date Procedure Procedure Detail Performing Clinician Start: 06-18-2023 Colonoscopy Garima Eastman Start: 06-18-2023 Esophagogastroduodenoscopy Garima qureshi Start: 11-10-2022 Transurethral cystoscopy Davey JARA Start: 11-19-2020 Cystoscope, device (physical object) Kenji Avalos Start: 10-31-2019 cysto Kenji Avalos Start: 08-22-2019 Transrectal biopsy of prostate using ultrasound guidance Kenji Avalos Start: 11-08-2018 Cystoscopy Kenji Avalos Start: 01-10-2015 Cystoscopy and transurethral biopsy of bladder Kenji Avalos Start: 01-10-2015 Transurethral prostatectomy Kenji guevara Start: 12-17-2014 Cystoscopy Kenji Avalos Comment on above: 07/01/15, 10/21/15, 01/21/16, 05/05/16, 11/17, 11/09/17, 11/08/18 Start: 12-05-2014 Urodynamic studies Kenji Avalos Colonoscopy Kenji Avalos Cystoscopy Kenji Avalos Nose - repair or plastic operation Danny AMES Tonsillectomy Kenji Avalos Plan of Treatment Date Care Activity Detail Author Start: 09-29-2024 ambulatory Ambulatory Facility:[facility] [place] Immunizations Immunization Date Immunization Notes Care Provider Fa anita 09-17-2023 influenza virus vaccine, unspecified formulation Davey JARA [facility] 01-04-2023 zoster vaccine recombinant Delgado SALAM [facility] 10-24-2022 zoster vaccine recombinant Delgado SALAM [facility] 09-18-2022 influenza virus vaccine, unspecified formulation [facility] 09-18-2022 SARS-CoV-2 (COVID-19 ) [id number] [facility] 09-26-2021 SARS-CoV-2 (COVID-19 ) mRNA BNT-162b2 vax [facility] 09-01-2021 influenza virus vaccine, unspecified formulation [facility] 03-17-2021 SARS-CoV-2 (COVID-19 ) mRNA BNT-162b2 vax [facility] 02-20-2021 SARS-CoV-2 (COVID-19 ) mRNA BNT-162b2 vax [facility] 09-09-2020 influenza virus vaccine, unspecified formulation [facility] 09-02-2020 influenza virus vaccine, unspecified formulation [facility] 09-13-2019 influenza virus vaccine, unspecified formulation [facility] 09-20-2018 influenza virus vaccine, unspecified formulation [facility] 09-06-2017 influenza, unspecifi ed formulation [facility] 09-18-2015 influenza virus vaccine, unspecified formulation [facility] 08-28-2014 influenza virus vaccine, unspecified formulation [facility] 09-04-2010 influenza virus vaccine, unspecified formulation [facility] 07-03-2010 hepatitis A and hepatitis B vaccine [facility] 01-30-2010 hepatitis A and hepatitis B vaccine [facility] 01-02-2010 hepatitis A and hepatitis B vaccine [facility] Payers Date Payer Category Payer Unknown [id number] 1960 Unknown [id number] 1960 Unknown [id number] 2.16.84 [id number] 1959 Unknown [id number] 2.16.84 [id number] 1959 Unknown [id number] 2.16.84 [id number] 1959 Unknown [id number] 2.16.840 .[id number] 1959 Unknown [id number] 2.16.8 [id number] 1959 Unknown [id number] 2.16.8 [id number] 1959 Unknown [id number] 2.16.8 [id number] 1959 Unknown [id number] 2.16.8 [id number] 1959 Unknown [id number] 2.16.8 40.1.150692.3.579.2.727 1959 Unknown [id number] 2.16.8 [id number] 1959 Unknown [id number] 2.16.8 [id number] 1959 Unknown [id number] 2.16.8 [id number] 1959 Unknown [id number] 2.16.8 40.1.564633.3.579.2.727 1959 Unknown [id number] 2.16.8 [id number] 1959 Unknown [id number] 2.16.8 [id number] 1959 Unknown [id number] 2.16.8 [id number] 1959 Unknown [id number] 2.16.8 [id number] Worker's Compensation [id number] Social History Date Type Detail Facility Start: 02-18-2023 End: 09-24-2023 Tobacco smoking status Ex-smoker (finding) [facility] Sex Assigned At Male [facility] Start: 11-11-2023 Tobacco smoking status Never [facility] Medical Equipment Procedure Code Equipment Code Equipment Origin al Text Equipment Identifier Dates Unknown Unknown 06/18/23 Non Biological Unknown FDA Start: 06-18-2023 FDA Start: 06-18-2023 Unknown Unknown 06/18/23 Non Biological Unknown FDA Start: 06-18-2023 FDA Start: 06-18-2023 Unknown Unknown 06/18/23 Non Biological Unknown FDA Start: 06-18-2023 FDA Start: 06-18-2023 Unknown Unknown 06/18/23 Non Biological Unknown FDA Start: 06-18-2023 FDA Start: 06-18-2023 Unknown Unknown 06/18/23 Non Biological Unknown FDA Start: 06-18-2023 FDA Start: 06-18-2023 Unknown Unknown 06/18/23 Non Biological Unknown FDA Start: 06-18-2023 FDA Start: 06-18-2023 Unknown Unknown 06/18/23 Non Biological Unknown FDA Start: 06-18-2023 FDA Start: 06-18-2023 Functional Status Date Assessment Result Facility 11-30-2023 Functional Status N/A [facility] 09-24-2023 Functional Status N/A [facility] 07-12-2023 Functional Status N/A [facility] 05-05-2023 Functional Status N/A [facility] 02-18-2023 Functional Status N/A [facility] Clinical Notes 02-18-2023 to 11-30-2023 Note Date & Type Note Facility 11-30-2023 Hospital Discharge instructions Patient Education 11/30/2023 14:02:27 Benign Prostatic Hyperplasia Benign Prostatic Hyperplasia Benign prostatic hyperplasia (BPH) is an enlarged prostate gland that is caused by the normal aging process. The prostate may get bigger as a man gets older. The condition is not caused by cancer. The prostate is a walnut-sized gland that is involved in the production of semen. It is located in front of the rectum and below the bladder. The bladder stores urine. The urethra carries stored urine out of the body. An enlarged prostate can press on the urethra. This can make it harder to pass urine. The buildup of urine in the bladder can cause infection. Back pressure and infection may progress to bladder damage and kidney (renal) failure. What are the causes? This condition is part of the normal aging process. However, not all men develop problems from this condition. If the prostate enlarges away from the urethra, urine flow will not be blocked. If it enlarges toward the urethra and compresses it, there will be problems passing urine. What increases the risk? This condition is more likely to develop in men older than 50 years. What are the signs or symptoms? Symptoms of this condition include: Getting up often during the night to urinate. Needing to urinate frequently during the day. Difficulty starting urine flow. Decrease in size and strength of your urine stream. Leaking (dribbling) after urinating. Inability to pass urine. This needs immediate treatment. Inability to completely empty your bladder. Pain when you pass urine. This is more common if there is also an infection. Urinary tract infection (UTI). How is this diagnosed? This condition is diagnosed based on your medical history, a physical exam, and your symptoms. Tests will also be done, such as: A post-void bladder scan. This measures any amount of urine that may remain in your bladder after you finish urinating. A digital rectal exam. In a rectal exam, your health care provider checks your prostate by putting a lubricated, gloved finger into your rectum to feel the back of your prostate gland. This exam detects the size of your gland and any abnormal lumps or growths. An exam of your urine (urinalysis). A prostate specific antigen (PSA) screening. This is a blood test used to screen for prostate cancer. An ultrasound. This test uses sound waves to electronically produce a picture of your prostate gland. Your health care provider may refer you to a specialist in kidney and prostate diseases (urologist). How is this treated? Once symptoms begin, your health care provider will monitor your condition (active surveillance or watchful waiting). Treatment for this condition will depend on the severity of your condition. Treatment may include: Observation and yearly exams. This may be the only treatment needed if your condition and symptoms are mild. Medicines to relieve your symptoms, including: ?Medicines to shrink the prostate. ?Medicines to relax the muscle of the prostate. Surgery in severe cases. Surgery may include: ?Prostatectomy. In this procedure, the prostate tissue is removed completely through an open incision or with a laparoscope or robotics. ?Transurethral resection of the prostate (TURP). In this procedure, a tool is inserted through the opening at the tip of the penis (urethra). It is used to cut away tissue of the inner core of the prostate. The pieces are removed through the same opening of the penis. This removes the blockage. ?Transurethral incision (TUIP). In this procedure, small cuts are made in the prostate. This lessens the prostate's pressure on the urethra. ?Transurethral microwave thermotherapy (TUMT). This procedure uses microwaves to create heat. The heat destroys and removes a small amount of prostate tissue. ?Transurethral needle ablation (TUNA). This procedure uses radio frequencies to destroy and remove a small amount of prostate tissue. ?Interstitial laser coagulation (ILC). This procedure uses a laser to destroy and remove a small amount of prostate tissue. ?Transurethral electrovaporization (TUVP). This procedure uses electrodes to destroy and remove a small amount of prostate tissue. ?Prostatic urethral lift. This procedure inserts an implant to push the lobes of the prostate away from the urethra. Follow these instructions at home: Take [id number] and prescription medicines only as told by your health care provider. Monitor your symptoms for any changes. Contact your health care provider with any changes. Avoid drinking large amounts of liquid before going to bed or out in public. Avoid or reduce how much caffeine or alcohol you drink. Give yourself time when you urinate. Keep all follow-up visits. This is important. Contact a health care provider if: You have unexplained back pain. Your symptoms do not get better with treatment. You develop side effects from the medicine you are taking. Your urine becomes very dark or has a bad smell. Your lower abdomen becomes distended and you have trouble passing urine. Get help right away if: You have a fever or chills. You suddenly cannot urinate. You feel light-headed or very dizzy, or you faint. There are large amounts of blood or clots in your urine. Your urinary problems become hard to manage. You develop moderate to severe low back or flank pain. The flank is the side of your body between the ribs and the hip. These symptoms may be an emergency. Get help right away. Call 911. Do not wait to see if the symptoms will go away. Do not drive yourself to the hospital. Summary Benign prostatic hyperplasia (BPH) is an enlarged prostate that is caused by the normal aging process. It is not caused by cancer. An enlarged prostate can press on the urethra. This can make it hard to pass urine. This condition is more likely to develop in men older than 50 years. Get help right away if you suddenly cannot urinate. This information is not intended to replace advice given to you by your health care provider. Make sure you discuss any questions you have with your health care provider. Document Revised: 06/03/2022 Document Reviewed: 06/03/2022 Elsevier Patient Education 2022 [employer] Follow Up Care 11/23/2023 16:14:09 With:ESTEFANI WILLIAMSON, Davey Hoover, URL Address: [facility] [address] , [place] [address]- When: Unknown Comments:Appt scheduled for 09/29/24 [facility] [place] 09-24-2023 Hospital Discharge instructions Patient Education 09/24/2023 08:45:38 Prostate Cancer Screening Prostate Cancer Screening Prostate cancer screening is testing that is done to check for the presence of prostate cancer in men. The prostate gland is a walnut-sized gland that is located below the bladder and in front of the rectum in males. The function of the prostate is to add fluid to semen during ejaculation. Prostate cancer is one of the most common types of cancer in men. Who should have prostate cancer screening? Screening recommendations vary based on age and other risk factors, as well as between the professional organizations who make the recommendations. In general, screening is recommended if: You are age 50 to 70 and have an average risk for prostate cancer. You should talk with your health care provider about your need for screening and how often screening should be done. Because most prostate cancers are slow growing and will not cause , screening in this age group is generally reserved for men who have a 10- to 15-year life expectancy. You are younger than age 50, and you have these risk factors: ?Having a father, brother, or uncle who has been diagnosed with prostate cancer. The risk is higher if your family member's cancer occurred at an early age or if you have multiple family members with prostate cancer at an early age. ?Being a male who is Black or is of [place] or sub-Saharan descent. In general, screening is not recommended if: You are younger than age 40. You are between the ages of 40 and 49 and you have no risk factors. You are 70 years of age or older. At this age, the risks that screening can cause are greater than the benefits that it may provide. If you are at high risk for prostate cancer, your health care provider may recommend that you have screenings more often or that you start screening at a younger age. How is screening for prostate cancer done? The recommended prostate cancer screening test is a blood test called the prostate-specific antigen (PSA) test. PSA is a protein that is made in the prostate. As you age, your prostate naturally produces more PSA. Abnormally high PSA levels may be caused by: Prostate cancer. An enlarged prostate that is not caused by cancer (benign prostatic hyperplasia, or BPH). This condition is very common in older men. A prostate gland infection (prostatitis) or urinary tract infection. Certain medicines such as male hormones (like testosterone) or other medicines that raise testosterone levels. A rectal exam may be done as part of prostate cancer screening to help provide information about the size of your prostate gland. When a rectal exam is performed, it should be done after the PSA level is drawn to avoid any effect on the results. Depending on the PSA results, you may need more tests, such as: A physical exam to check the size of your prostate gland, if not done as part of screening. Blood and imaging tests. A procedure to remove tissue samples from your prostate gland for testing (biopsy). This is the only way to know for certain if you have prostate cancer. What are the benefits of prostate cancer screening? Screening can help to identify cancer at an early stage, before symptoms start and when the cancer can be treated more easily. There is a small chance that screening may lower your risk of dying from prostate cancer. The chance is small because prostate cancer is a slow-growing cancer, and most men with prostate cancer from a different cause. What are the risks of prostate cancer screening? The main risk of prostate cancer screening is diagnosing and treating prostate cancer that would never have caused any symptoms or problems. This is called overdiagnosisand overtreatment. PSA screening cannot tell you if your PSA is high due to cancer or a different cause. A prostate biopsy is the only procedure to diagnose prostate cancer. Even the results of a biopsy may not tell you if your cancer needs to be treated. Slow-growing prostate cancer may not need any treatment other than monitoring, so diagnosing and treating it may cause unnecessary stress or other side effects. Questions to ask your health care provider When should I start prostate cancer screening? What is my risk for prostate cancer? How often do I need screening? What type of screening tests do I need? How do I get my test results? What do my results mean? Do I need treatment? Where to find more information The [employer]: www.cancer.org [employer]: www.auanet.org Contact a health care provider if: You have difficulty urinating. You have pain when you urinate or ejaculate. You have blood in your urine or semen. You have pain in your back or in the area of your prostate. Summary Prostate cancer is a common type of cancer in men. The prostate gland is located below the bladder and in front of the rectum. This gland adds fluid to semen during ejaculation. Prostate cancer screening may identify cancer at an early stage, when the cancer can be treated more easily and is less likely to have spread to other areas of the body. The prostate-specific antigen (PSA) test is the recommended screening test for prostate cancer, but it has associated risks. Discuss the risks and benefits of prostate cancer screening with your health care provider. If you are age 70 or older, the risks that screening can cause are greater than the benefits that it may provide. This information is not intended to replace advice given to you by your health care provider. Make sure you discuss any questions you have with your health care provider. Document Revised: 05/11/2022 Document Reviewed: 05/11/2022 [employer] Patient Education 2022 [employer]. Follow Up Care 09/28/2022 15:56:00 With:ESTEFANI WILLIAMSON, Davey Hoover, URL Address: [address] [place] [address]- When: Unknown [facility] 07-12-2023 Hospital Discharge instructions Patient Education 07/12/2023 13:30:28 Colonoscopy, Adult Colonoscopy, Adult A colonoscopy is a procedure to look at the entire large intestine. This procedure is done using a long, thin, flexible tube that has a camera on the end. You may have a colonoscopy: As a part of normal colorectal screening. If you have certain symptoms, such as: ?A low number of red blood cells in your blood (anemia). ?Diarrhea that does not go away. ?Pain in your abdomen. ?Blood in your stool. A colonoscopy can help screen for and diagnose medical problems, including: An abnormal growth of cells or tissue (tumor). Abnormal growths within the lining of your intestine (polyps). Inflammation. Areas of bleeding. Tell your health care provider about: Any allergies you have. All medicines you are taking, including vitamins, herbs, eye drops, creams, and qkbp-uuc-hrmsuvh medicines. Any problems you or family members have had with anesthetic medicines. Any bleeding problems you have. Any surgeries you have had. Any medical conditions you have. Any problems you have had with having bowel movements. Whether you are or may be . What are the risks? Generally, this is a safe procedure. However, problems may occur, including: Bleeding. Damage to your intestine. Allergic reactions to medicines given during the procedure. Infection. This is rare. What happens before the procedure? Eating and drinking restrictions Follow instructions from your health care provider about eating or drinking restrictions, which may include: A few days before the procedure: ?Follow a low-fiber diet. ?Avoid nuts, seeds, dried fruit, raw fruits, and vegetables. 1 3 days before the procedure: ?Eat only gelatin dessert or ice pops. ?Drink only clear liquids, such as water, clear juice, clear broth or bouillon, black coffee or tea, or clear soft drinks or sports drinks. ?Avoid liquids that contain red or purple dye. The day of the procedure: ?Do not eat solid foods. You may continue to drink clear liquids until up to 2 hours before the procedure. ?Do not eat or drink anything starting 2 hours before the procedure, or within the time period that your health care provider recommends. Bowel prep If you were prescribed a bowel prep to take by mouth (orally) to clean out your colon: Take it as told by your health care provider. Starting the day before your procedure, you will need to drink a large amount of liquid medicine. The liquid will cause you to have many bowel movements of loose stool until your stool becomes almost clear or light green. If your skin or the opening between the buttocks (anus) gets irritated from diarrhea, you may relieve the irritation using: ?Wipes with medicine in them, such as adult wet wipes with aloe and vitamin E. ?A product to soothe skin, such as petroleum jelly. If you vomit while drinking the bowel prep: ?Take a break for up to 60 minutes. ?Begin the bowel prep again. ?Call your health care provider if you keep vomiting or you cannot take the bowel prep without vomiting. To clean out your colon, you may also be given: ?Laxative medicines. These help you have a bowel movement. ?Instructions for enema use. An enema is liquid medicine injected into your rectum. Medicines Ask your health care provider about: Changing or stopping your regular medicines or supplements. This is especially important if you are taking iron supplements, diabetes medicines, or blood thinners. Taking medicines such as aspirin and ibuprofen. These medicines can thin your blood. Do not take these medicines unless your health care provider tells you to take them. Taking vfyj-jle-ashvdoe medicines, vitamins, herbs, and supplements. General instructions Ask your health care provider what steps will be taken to help prevent infection. These may include washing skin with a germ-killing soap. If you will be going home right after the procedure, plan to have a responsible adult: ?Take you home from the hospital or clinic. You will not be allowed to drive. ? Care for you for the time you are told. What happens during the procedure? An IV will be inserted into one of your veins. You will be given a medicine to make you fall asleep (general anesthetic). You will lie on your side with your knees bent. A lubricant will be put on the tube. Then the tube will be: ?Inserted into your anus. ?Gently eased through all parts of your large intestine. Air will be sent into your colon to keep it open. This may cause some pressure or cramping. Images will be taken with the camera and will appear on a screen. A small tissue sample may be removed to be looked at under a microscope (biopsy). The tissue may be sent to a lab for testing if any signs of problems are found. If small polyps are found, they may be removed and checked for cancer cells. When the procedure is finished, the tube will be removed. The procedure may vary among health care providers and hospitals. What happens after the procedure? Your blood pressure, heart rate, breathing rate, and blood oxygen level will be monitored until you leave the hospital or clinic. You may have a small amount of blood in your stool. You may pass gas and have mild cramping or bloating in your abdomen. This is caused by the air that was used to open your colon during the exam. If you were given a sedative during the procedure, it can affect you for several hours. Do not drive or operate machinery until your health care provider says that it is safe. It is up to you to get the results of your procedure. Ask your health care provider, or the department that is doing the procedure, when your results will be ready. Summary A colonoscopy is a procedure to look at the entire large intestine. Follow instructions from your health care provider about eating and drinking before the procedure. If you were prescribed an oral bowel prep to clean out your colon, take it as told by your health care provider. During the colonoscopy, a flexible tube with a camera on its end is inserted into the anus and then passed into all parts of the large intestine. This information is not intended to replace advice given to you by your health care provider. Make sure you discuss any questions you have with your health care provider. Document Revised: 11/09/2022 Document Reviewed: 07/08/2022 [employer] Patient Education 2022 [employer]. Follow Up Care 07/06/2023 13:47:03 With:Garima Eastman CNP Address: When:1 to 2 weeks Comments:Following colonoscopy. [facility] 07-12-2023 Note Radiology Colonoscopy, Adult A colonoscopy is a procedure to look at the entire large intestine. This procedure is done using a long, thin, flexible tube that has a camera on the end. You may have a colonoscopy: ? As a part of normal colorectal screening. ? If you have certain symptoms, such as: ? A low number of red blood cells in your blood (anemia). ? Diarrhea that does not go away. ? Pain in your abdomen. ? Blood in your stool. A colonoscopy can help screen for and diagnose medical problems, including: ? An abnormal growth of cells or tissue (tumor). ? Abnormal growths within the lining of your intestine (polyps). ? Inflammation. ? Areas of bleeding. Tell your health care provider about: ? Any allergies you have. ? All medicines you are taking, including vitamins, herbs, eye drops, creams, and mluo-apu-atwsabe medicines. ? Any problems you or family members have had with anesthetic medicines. ? Any bleeding problems you have. ? Any surgeries you have had. ? Any medical conditions you have. ? Any problems you have had with having bowel movements. ? Whether you are or may be . What are the risks? Generally, this is a safe procedure. However, problems may occur, including: ? Bleeding. ? Damage to your intestine. ? Allergic reactions to medicines given during the procedure. ? Infection. This is rare. What happens before the procedure? Eating and drinking restrictions Follow instructions from your health care provider about eating or drinking restrictions, which may include: ? A few days before the procedure: ? Follow a low-fiber diet. ? Avoid nuts, seeds, dried fruit, raw fruits, and vegetables. ? 1?3 days before the procedure: ? Eat only gelatin dessert or ice pops. ? Drink only clear liquids, such as water, clear juice, clear broth or bouillon, black coffee or tea, or clear soft drinks or sports drinks. ? Avoid liquids that contain red or purple dye. ? The day of the procedure: ? Do not eat solid foods. You may continue to drink clear liquids until up to 2 hours before the procedure. ? Do not eat or drink anything starting 2 hours before the procedure, or within the time period that your health care provider recommends. Bowel prep If you were prescribed a bowel prep to take by mouth (orally) to clean out your colon: ? Take it as told by your health care provider. Starting the day before your procedure, you will need to drink a large amount of liquid medicine. The liquid will cause you to have many bowel movements of loose stool until your stool becomes almost clear or light green. ? If your skin or the opening between the buttocks (anus) gets irritated from diarrhea, you may relieve the irritation using: ? Wipes with medicine in them, such as adult wet wipes with aloe and vitamin E. ? A product to soothe skin, such as petroleum jelly. ? If you vomit while drinking the bowel prep: ? Take a break for up to 60 minutes. ? Begin the bowel prep again. ? Call your health care provider if you keep vomiting or you cannot take the bowel prep without vomiting. ? To clean out your colon, you may also be given: ? Laxative medicines. These help you have a bowel movement. ? Instructions for enema use. An enema is liquid medicine injected into your rectum. Medicines Ask your health care provider about: ? Changing or stopping your regular medicines or supplements. This is especially important if you are taking iron supplements, diabetes medicines, or blood thinners. ? Taking medicines such as aspirin and ibuprofen. These medicines can thin your blood. Do not take these medicines unless your health care provider tells you to take them. ? Taking eqbd-kkg-gpeownl medicines, vitamins, herbs, and supplements. General instructions ? Ask your health care provider what steps will be taken to help prevent infection. These may include washing skin with a germ-killing soap. ? If you will be going home right after the procedure, plan to have a responsible adult: ? Take you home from the hospital or clinic. You will not be allowed to drive. ? Care for you for the time you are told. What happens during the procedure? ? An IV will be inserted into one of your veins. ? You will be given a medicine to make you fall asleep (general anesthetic). ? You will lie on your side with your knees bent. ? A lubricant will be put on the tube. Then the tube will be: ? Inserted into your anus. ? Gently eased through all parts of your large intestine. ? Air will be sent into your colon to keep it open. This may cause some pressure or cramping. ? Images will be taken with the camera and will appear on a screen. ? A small tissue sample may be removed to be looked at under a microscope (biopsy). The tissue may be sent to a lab for testing if any signs of problems are found. ? If small polyps are found, they may be removed and checked for cancer cells. (more content not included)... [facility] 06-21-2023 Note [id number] [facility] 02-18-2023 Hospital Discharge instructions Patient Education 02/18/2023 16:09:24 Endoscopy, Care After [place] [facility] [place] Endoscopy Care After Procedure Please read the instructions outlined below and refer to this sheet in the next few weeks. These discharge instructions provide you with general information on caring for yourself after you leave the hospital. Your doctor may also give you specific instructions. While your treatment has been planned according to the most current medical practices available, unavoidable complications occasionally occur. If you have any problems or questions after discharge, please call your doctor. ACTIVITY You may resume your regular activity but move at a slower pace for the next 24 hours. Take frequent rest periods for the next 24 hours. Walking will help expel (get rid of) the air and reduce the bloated feeling in your abdomen. No driving for 24 hours (because of the anesthesia (medicine) used during the test). You may shower. Do not sign any important legal documents or operate any machinery for 24 hours (because of the anesthesia used during the test). NUTRITION Drink plenty of fluids. You may resume your normal diet. Begin with a light meal and progress to your normal diet. Avoid alcoholic beverages for 24 hours or as instructed by your caregiver. MEDICATIONS You may resume your normal medications unless your caregiver tells you otherwise. WHAT YOU CAN EXPECT TODAY You may experience abdominal discomfort such as a feeling of fullness or gas pains. FOLLOW-UP Your doctor will discuss the results of your test with you. SEEK IMMEDIATE MEDICAL ATTENTION IF ANY OF THE FOLLOWING OCCUR: Excessive nausea (feeling sick to your stomach) and/or vomiting. Severe abdominal pain and distention (swelling). Trouble swallowing. Temperature over 100 F (37.8 C). Rectal bleeding or vomiting of blood. Document Released: 06/29/2005 Document Re-Released: 05/09/2007 [facility] Patient Information [employer]. 02/18/2023 16:09:24 Swallowed Foreign Body, Adult, Hxdq-an-Spjh Swallowed Foreign Body, Adult A swallowed foreign body means that you swallowed something and it got stuck. It might be food or something else. The object may get stuck in the part of your body that moves food from your mouth to your stomach (esophagus), or it may get stuck in another part of your belly (digestive tract). Often, the object will pass through your body on its own. The object may need to be taken out by a doctor if it is dangerous or if it will not pass through your body on its own. Objects may be swallowed by accident or on purpose. It is very important to tell your doctor what you swallowed. Some swallowed objects can be very dangerous. You may need emergency treatment if: An object gets stuck in your throat. You cannot swallow. You cannot breathe well. The object is sharp. The object is harmful or poisonous (toxic). What are the causes? The most common cause is food that will not pass through the part of your body that moves food from your mouth to your stomach. When this happens, it is called food impaction. Foods that may cause this include: Meat. Hard vegetables, such as carrots and radishes. Other common swallowed objects include: Pieces of bone from meat or fish. Toothpicks. Dentures. What increases the risk? Wearing dentures. Having been drinking alcohol or taking drugs. Having a mental health condition. Having trouble with thinking and learning (cognitive impairment). Having a narrowed or scarred area in your belly. What are the signs or symptoms? Pain or pressure in your throat or chest. Not being able to swallow food or liquid. Not being able to swallow your spit (saliva). Drooling. Choking. A hoarse voice. Trouble breathing. Noisy breathing. Vomit that has blood in it. How is this treated? No treatment is needed if the object is not dangerous and will come out (pass) in your poop (stool). If the swallowed object is not dangerous, but it is stuck in the part of your body that moves food from your mouth to your stomach: Your doctor may gently suction out the object through your mouth. You may be given a medicine to relax the muscles and allow the object to pass through to the stomach. A procedure called endoscopy may be done to find and remove the object if it does not come out with medicine. Your doctor will put medical tools through a tube (endoscope) to remove the object. You may need emergency treatment if: The object is causing you to breathe in (inhale) spit into your lungs (aspirate). The object is pressing on your airway. This makes it hard for you to breathe. The object can harm the inside of your belly. Some objects that can cause harm include batteries, magnets, sharp objects, and drugs. Follow these instructions at home: Caring for yourself If the object in your belly is expected to come out in your poop: ?Eat what you normally eat if your doctor says that you can. ?Keep checking your poop to see if the object has come out of your body. ?Call your doctor if the object has not come out of your body after 3 days. If you had a procedure to remove the object, follow instructions from your doctor about caring for yourself after the procedure. General instructions Take ngip-zmk-deqghyd and prescription medicines only as told by your doctor. Keep all follow-up visits as told by your doctor. This is important. How is this prevented? Cut your food into small pieces. Always sit upright while eating. Remove bones from meat and fish. Chew your food well before swallowing. Do not talk, laugh, or walk around while eating or swallowing. Contact a doctor if: You still have problems after you have been treated. The object has not come out of your body after 3 days. Get help right away if: You have a fever. You have pain in your chest or your belly. You cough up blood. You have blood in your poop. You have blood in your vomit after treatment. Summary A swallowed foreign body means that you swallowed something and it got stuck. The object may get stuck in the part of the body that moves food from your mouth to your stomach (esophagus), or it may get stuck in another part of your belly (digestive tract). Often, the object will pass through your body on its own. An endoscopy may be done to find and remove the object if it does not pass out of your body after you take medicine. Call your doctor if the object has not come out of your body after 3 days, you have blood in your poop, or you have blood when you cough or vomit. This information is not intended to replace advice given to you by your health care provider. Make sure you discuss any questions you have with your health care provider. Document Released: 03/01/2012 Document Revised: 09/28/2019 Document Reviewed: 09/28/2019 [employer] Patient Education 2020 [employer]. Follow Up Care 02/18/2023 13:49:24 With:Rafael Powell Address:Unknown When:1 to 2 weeks Comments:Call for any problems. Office will call with biopsy results [facility] 02-18-2023 Evaluation + Plan note Extrac humberto from: Title:CSB post op Author:Savi WILLIAMSON, Guillermo Leahy Date:02/18/23 Plan Transfer/Discharge: Transfer/Discharge Discharge when meets criteria ( To home ). Extracted from: Title:Consult Note Author:Rafael Powell MD te:02/18/23 62-year-old male who swallow ed a sharp foreign body while at the dentist 1. Swallowed foreign body (T18.9XXA: Foreign body of alimentary tract, part unspecified, initial encounter) The foreign body was successfully retrieved from the proximal jejunum using push enteroscopy please see attached procedure note Orders: Sodium Chloride 0.9% intravenous solution 1,000 mL, 1,000 mL, IV, 20 mL/hr, Routine, Start date 02/18/23 14:25:00 EDT, 50 hour(s), Total volume (mL): 1,000, 86.5 kg, 2.07, m2 Pathology Tissue Exam Addendum by Rafael Powell MD on February 18, 2023 15:48:38 EDT The patient may go home after 4 hours of observation, stable vital signs and p.o. challenge with water Extracted from: Title:ED Note Author:Bailey Woodard, Kenji Cuello te:02/18/23 1. Swallowed foreign body (T 18.9XXA: Foreign body of alimentary tract, part unspecified, initial encounter) Orders: XR Abdomen 1 View XR Chest 2 Views Future Appointments Appointment Date:09/27/2023 01:45:00 PM Scheduled Provider:Davey JARA MD Location:[facility]ments Appointment Date:06/18/2023 01:45:00 PM Scheduled Provider: Location:[facility] Appointment Type:Surgery FT Appointment Date:09/27/2023 01:45:00 PM Scheduled Provider:Davey JARA MD Location:[facility] Appointment Type:URO Office Visit [place] Evaluation + Plan note Future Appointments Appointment Date:09/24/2023 08:15:00 AM Scheduled Provider:Davey JARA MD Location:[facility] Appointment Type:URO Office Visit [place] Evaluation + Plan note Future Appointments Appointment Date:09/29/2024 08:00:00 AM Scheduled Provider:Davey JARA MD Location:[facility] Appointment Type:URO Office Visit Diagnostic Tests Pending * PSA Total 07/30/24 [facility] evaluation + Plan note Future Appointments Appointment Date:09/29/2024 08:00:00 AM Scheduled Provider:Davey JARA MD Location:[facility] Appointment Type:URO Office Visit [facility] Evaluation + Plan note Future Appointments Appointment Date:11/11/2023 02:00:00 PM Scheduled Provider:COLLEEN Giraldo APRN, [place] [facility] Location:[facility] Appointment Type:URO Office Visit Appointment Date:09/29/2024 08:00:00 AM Scheduled Provider:Davey JARA MD Location:[facility] Appointment Type:URO Office Visit Diagnostic Tests Pending * [facility] Appointment Date:11/30/2023 01:15:00 PM Scheduled Provider:Davey JARA MD Location:[facility] [place] Appointment Type:URO Procedure 15 min Appointment Date:09/29/2024 08:00:00 AM Scheduled Provider:Davey JARA MD Location:[facility] Appointment Type:URO Office Visit [facility] evaluation + Plan note Future Appointments Appointment Date:09/29/2024 08:00:00 AM Scheduled Provider:Davey JARA MD Location:[facility] Appointment Type:URO Office Visit Diagnostic Tests Pending * [facility] N[facility] No data available for this section [facility] No data available for this section [facility] Progress note No data available for this section [facility] Summary Purpose Family History No Family History Records FoundNo Family History Records FoundNo Family History Records Found No data available for this section No data available for this section No data available for this section No Family History Records Found No data available for this section No data available for this section No data available for this section No Family History Records Found Advance Directives No Advanced Directives Records FoundNo Advanced Directives Records FoundNo Advanced Directives Records FoundNo Advanced Directives Records FoundNo Advanced Directives Records Found Additional Source Comments (unrecognized sect ion and content) No Status Records FoundNo Status Records FoundNo Status Records FoundNo Status Records FoundNo Status Records Found INFORMATION SOURCE (unrecogn ized section and content) DATE CREATED AUTHOR 05/25/2018 [facility] DATE CREATED AUTHOR AUTHOR'S ORGANIZ ATION 01/26/2021 [facility] DATE CREATED AUTHOR AUTHOR'S ORGANIZ ATION 07/12/2023 [facility] DATE CREATED AUTHOR AUTHOR'S ORGANIZ ATION 11/26/2023 [facility] EPIC DATE CREATED AUTHOR AUTHOR'S AMELIA ATION [facility] informatio n (unrecognized section and content) Personnel Name: Thomas Lamar MD Address: Address: [address] [place] [address] Personnel Name: Thomas Lamar MD Address: Address: [address] [place], [place] [id number] Personnel Name: Thomas Lamar MD Address: Address: [address] [place] [id number] Personnel Name: Thomas Lamar MD Address: Address: [address] [place] [id number] Personnel Name: Thomas Lamar MD Address: Address: [address] [place] [id number] Personnel Name: Thomas Lamar MD Address: Address: [address] [place], [place] [id number] Personnel Name: Thomas Lamar MD Address: Address: [address] [place], [place] [id number] Personnel Name: Thomas Lamar MD Address: Address: [address] [place], [place] [id number] Personnel Name: Thomas Lamar MD Address: Address: [address] [place] [address] FOR RECORDS PERTAINING TO PATIENTS WHO ARE OR HAVE BEEN ENROLLED IN A CHEMICAL DEPENDENCY/SUBSTANCEABUSE PROGRAM, SOME INFORMATION MAY BE OMITTED. This clinical summary was aggregated from multiple sources. Caution should be exercised in using it in the provision of clinical care. This summary normalizes information from multiple sources, and as a consequence, information in this document may materially change the coding, format and clinical context of patient data. In addition, data may be omitted in some cases. CLINICAL DECISIONS SHOULD BE BASED ON THE PRIMARY CLINICAL RECORDS. [employer] provides no warranty or guarantee of the accuracy or completeness of information in this document.
--- OUTSIDE RECORDS SUMMARY | 2023-12-14 07:12 | XMS_ITS | CCD ---
Author Name Unknown Address [address] [place] [address] Organization [facility] Care Team Providers Care Accounting Machine Operator Name Role Phone ARIE MARYLIN Unavailable Unavailable ARIE, MARYLIN Unavailable Unavailable ARIE, MARYLIN Unavailable Unavailable THOMAS LAMAR Unavailable Unavailable THOMAS LAMAR Primary Care Unavailable ESTEFANI, DAVEY Admitting Unavailable JARA, DAVEY Consulting Unavailable JARA, DAVEY Attending Unavailable THOMAS LAMAR Consulting Unavailable THOMAS LAMAR Attending Unavailable THOMAS LAMAR Admitting Unavailable DANICA MUNROE Admitting Unavailable DANICA MUNROE Consulting Unavailable DANICA MUNROE Attending Unavailable Thomas Lamar Primary Care Physician [phone] THOMAS LAMAR Primary Care Unavailable AMRIK MUNROE [...] Admitting Unavailable SALAM, Danny Attending Unavailable SALAM, Delgdao Referring Unavailable JARA, Davey R Admitting Unavailable JARA, Davey R Attending Unavailable ROSALINDA CHAPMAN Admitting Unavailable ROSALINDA CHAPMAN Attending Unavailable Allergies Allergy Classification Reported Allergen(s) Allergy Type Date of Onset Reaction(s) Facility (2 sources) Ciprofloxacin; Translations: [ciprofloxacin] Drug Allergy Unknown [facility] Medications Current Medications Medication Drug [...] Daily, # 90 tab(s), Refills(s) 3, Pharmacy: [facility], 178, cm, 02/18/23 13:55:00 EDT, Height/Length [...] Daily, # 30 cap(s), Refills(s) 2, [id number] 178, cm, 05/05/23 8:17:00 EDT, Height/Length Dosing, 87, kg, 05/05/23 8:17:00 EDT, Weight Dosing Start Date: 05/05/23 Status: Ordered polyethylene glycol 3350 233088 mg / potassium chloride 1480 mg / sodium bicarbonate 5720 mg / sodium chloride 49143 mg powder for oral solution (2 sources) Osmotic Laxative Start: 07-12-2023 take 2 doses by mouth every other day NuLYTELY Jama oral powder for reconstitution See Instructions, 2 EA, Refill(s) 0, 2 day colon prep., [id number] 178, cm, 07/12/23 14:08:00 EDT, Height/Length Dosing, 87.5, kg, 07/12/23 14:08:00 EDT, Weight Dosing Start Date: 07/12/23 Status: Ordered Start: 05-05-2023 NuLYTELY Cherr y oral powder for reconstitution See Instructions, 1 EA, Refill(s) 0, See physician instructions prior to procedure., [facility]/pharmacy #[id number], 178, cm, 05/05/23 8:17:00 EDT, Height/Length Dosing, 87, kg, 05/05/23 8:17:00 EDT, Weight Dosing Start Date: 05/05/23 Status: Ordered sildenafil 100 mg oral tablet (9 sources) Phosphodiesterase 5 Inhibitor Start: 09-24-2023 sildenafil 100 mg Ta b 100 mg = 1 tab(s), Oral, As Directed, 1 hour before sexual activity, # 30 tab(s), Refills(s) 3, [id number], 177, cm, 09/24/23 8:19:00 EDT, Height/Length Dosing, [...] day(s), # 30 cap(s), Refills(s) 0, Pharmacy: [facility]/pharmacy #[id number], 177, cm, 11/11/23 8:06:00 EST, Height/Length [...] day(s), # 90 tab(s), Refills(s) 3, Pharmacy: [facility], 178, cm, 07/12/23 14:08:00 EDT, Height/Length Dosing, 87.5, kg, 07/12/23 14:08:00 EDT, Weight Dosing Start Date: 09/09/23 Stop Date: 09/03/24 Status: Ordered Start: 04-28-2023 End: 04-22-2024 take 1 tablet by mouth once daily Gemtesa 75 mg oral tablet 75 mg = 1 tab(s), Oral, Daily, X 90 day(s), # 90 tab(s), Refills(s) 3, Pharmacy: [facility]/pharmacy #[id number], 178, cm, 02/18/23 13:55:00 EDT, Height/Length Dosing, 86.5, kg, 02/18/23 13:55:00 EDT, Weight Dosing Start Date: 04/28/23 Stop Date: 04/22/24 Status: Ordered Start: 08-31-2022 End: 08-26-2023 take 1 tablet by mouth once daily Gemtesa 75 mg oral tablet 75 mg = 1 tab(s), Oral, Daily, X 90 day(s), # 90 tab(s), Refills(s) 3, Pharmacy: [facility], 177, cm, 09/22/21 14:37:00 EDT, Height/Length [...] procedure, # 2 cap(s), Refills(s) 0, Pharmacy: [facility]/pharmacy #[id number], 177, cm, 09/28/22 14:37:00 EDT, Height/Length Dosing, 87, kg, 09/28/22 14:37:00 EDT, Weight Dosing Start Date: 09/28/22 Status: Ordered ciprofloxacin 500 mg oral tablet (3 sources) Quinolone Antimicrobial Start: 11-26-2023 Cipro 500 mg Tab 500 mg = 1 tab(s), Oral, As Directed, Take 1 pill the day before procedure, then 1 pill after the procedure., # 2 tab(s), Refills(s) 0, Pharmacy: [facility] #[id number], 177, cm, 11/11/23 8:06:00 EST, Height/Length Dosing, [...] source) Long-term current use of anticoagulant; Translations: [group home (current) use of anticoagulants] Onset: 3 Episodic [...] & UC Diagnosis Info Invalid Interpretation Code [facility] Comment on above: Result Comment: A:Ur [...] correlated with cytology and cystoscopy results.* CPT 90111, 58787. Microscopic Notes - Microscopic Notes - Abnormal cells 9p21 deletions: Abnormal cells aneploid events: Total cells analyzed: 84 Hematuria: Gross Description Site ID:A color Yellow fixative Alcohol Received 110 mls of clear yellow fluid with the patient's name and, Urine on the vial. Electronically signed by : on: 12/07/2023 08:46:27 Performed By: #### 1 [id number] #### [facility] [address] [place] [address] Consent for Procedure/Surger yon 12-01-2023 Consent for Procedure/Surgery [id number]#1.00TIFF Normal [facility] Ambulatory Visit Summaryon 0 11-30-2023 Ambulatory [...] Davey JARA MD Where: [facility] Patient Educationon 11-30-19 Patient Education Urology Benign [...] Follow these instructions at home: ? Take gcit-wdk-wlymxwf and prescription medicines only as told by [...] the medicine (more content not included)... Normal [facility] UroVysion Fish and Urine Cyt o ([facility])on 11-30-2023 [facility] Method of Extraction Voided Normal [facility] Comment on above: Performed By: #### 1 [id number] #### [facility] [address] [place] [address] [facility] Number of Jars 1 Invalid Interpretation Code [facility] Comment on above: Performed By: #### 1 [id number] #### [facility] [address] [place] [address] [facility] Specimen Urine Normal [facility] Comment on above: Performed By: #### 1 [id number] #### [facility] [address] [place] [address] [facility] Type of Service Technical Only Normal [facility] Comment on above: Performed By: #### 1 [id number] #### [facility] [address] [facility], [place] [address] Urology Office/Clinic Noteon 11-30-2023 Urology Office/Clinic Note [...] get a CT scan done soon at [facility]. Will call pt with results. 2. Urinary retention (R33.9: Retention of urine, unspecified) Pt had called into the office on 11/23/23 stating he had gone to [facility] ER that morning due to not [...] leaking. PVR 38 cc (at prior OV) [facility] ER Visit 11/23/23 - c/o retention, [...] dose. Call for refills. 5. 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 6. Erectile dysfunction (N52.9: Male erect (more content not included)... Normal [facility] Comment on above: Result Comment: Elec [...] WILLIAMSON, Davey Hoover Where: [facility] [address] [place] [address] [place] [address]- \.br \ Medications\ .br\ What How Much [...] choosing us for your care.\.br\ \.br \ [facility] Provider Letteron 11-26-2023 Provider Letter (Inserted Image. Shannan ble to display) November 26, 2023 RENA LEDESMA [address] [place] [address] : 1960 To Whom It May Concern, Please excuse above patient from work. Date of Illness: From: _11/23/23 To: _11/29/22 May Return to Work On:11/30/22 Restrictions: _None Sincerely, Dr. Davey Jara MD [facility] [address] [place] [place] [address] Normal [facility] UroVysion Fish and Urine Cyt o ([facility])on 11-17-2023 [facility] & UC Diagnosis Info Invalid Interpretation Code [facility] Comment on above: Result Comment: A:Ur [...] correlated with cytology and cystoscopy results.* CPT 79950, 21624 Microscopic Notes - Microscopic Notes - Abnormal cells 9p21 deletions: Abnormal cells aneploid events: Total cells analyzed: 36 Hematuria: Gross Description Site ID:A color Yellow fixative Alcohol Received 110 mls of clear yellow fluid with the patient's name and, Urine on the vial. Electronically signed by : on: 11/17/2023 08:51:00 Performed By: #### 1 [id number] ####[facility] [address] [place] [address] Screenson 11-12-2023 Screens [id number]#1.00TIFF [facility] Ambulatory Visit Summaryon 1 01-12-2023 Ambulatory Visit Summary RENA LEDESMA :1960 Visit Date:11/11/2023 Ambulatory Visit Instructions Your Diagnosis BPH with urinary obstruction Gross hematuria Tests Performed Urnls Dip Stick Auto w/o Microscopy POC 17053 Your Care Team Attending Physician - COLLEEN [...] WILLIAMSON, Davey Hoover Where: [facility] C Urineon 11-11-2023 Bacteria identified Cx Nom [...] Locations R1: This test was performed at: [facility], [address] [place] [address], [address] , , [facility] Comment on above: Performed By: #### 2 [id number] ####[facility] [address] [place] [address] Patient Educationon 11-11-20 Patient Education Urology Benign [...] Follow these instructions at home: ? Take bmir-tga-prwdxtf and prescription medicines only as told by [...] the medicine (more content not included)... Normal [facility] UroVysion Fish and Urine Cyt o ([facility])on 11-11-2023 [facility] Method of Extraction Voided Normal [facility] Comment on above: Performed By: #### 1 [id number] ####[facility] [address] [place] [address] [facility] Number of Jars 1 Invalid Interpretation Code [facility] Comment on above: Performed By: #### 1 [id number] ####[facility] [address] [place] [address] [facility] Specimen Urine Normal [facility] Comment on above: Performed By: #### 1 [id number] ####[facility] [address] [place] [address] [facility] Type of Service Technical Only Normal [facility] Comment on above: Performed By: #### 1 [id number] ####[facility] [address] [place] [address] Urology Office/Clinic Noteon 11-11-2023 Urology Office/Clinic Note [...] Urine Cyto ([facility]) 3. Anticoagulated (Z79.01: contact manager (current) use of anticoagulants) Takes 81 mg [...] Urnls Dip Stick Auto w/o Microscopy POC 21682 UroVysion Fish and Urine Cyto ([facility]) [...] ultrasound (US) (more content not included)... Normal [facility] Comment on above: Result Comment: Elec tronically Signed By: COLLEEN Giraldo APRN, Jerica Ojeda\.br\Date and Time Signed: 11/11/23 10:15 EST Ambulatory Visit Summaryon 1 Ambulatory Visit Summary RENA LEDESMA :1960 Visit Date:09/24/2023 Ambulatory Visit Instructions Your Diagnosis Personal history of bladder cancer BPH with urinary obstruction Elevated PSA Erectile dysfunction Tests Performed Urnls Dip Stick Auto w/o Microscopy POC 61472 Your Care Team Attending Physician - Davey [...] Davey JARA MD Where: [facility] Saige Pisano [facility] Patient Educationon -27-20 23 Patient Education [...] Where to find more information ? [employer] [place] [employer]: www.cancer.org ? [place] [employer]: www.auanet.org Contact a health care [...] adds flu (more content not included)... Normal [facility] Urology Office/Clinic Noteon 09-24-2023 Urology Office/Clinic [...] w/ Gemtesa, states it is affordable through [employer] if it's a 90 day supply. -Call [...] current dosage. -Refill sent to [facility] in [place] due to cost Follow-up With When Contact Information ESTEFANI WILLIAMSON, Davey Hoover, [address] [place] [address]- Additional Instructions: 1 year w/ PSA Patient [...] Use, 09/11/2019 (more content not included)... Normal [facility] Comment on above: Result Comment: Elec tronically Signed By: Davey JARA MD\.br\Date and Time Signed: 09/24/23 08:51 EDT\.br\Electronically Co-Signed By: Corrie Mendoza.br\Date and Time Co-Signed: 09/24/23 08:49 EDT Reminderson 09-08-2023 Reminders - From: Suzie Wheeler To: [facility] - Reminders/Recalls; Sent: 09/08/2023 08:58:16 EDT Show up: 04/17/2024 08:57:00 EDT Subject: Ambulatory Reminder Reminder/Recall Please call patient to schedule colonoscopy he wanted to wait till closer to the year dylon than doing it sooner. Patient had last one on 06/18/23. Noted in chart to do Nulytely with 2 day prep. Normal [facility] Reminders - From: Debora Medina To: [facility] - Reminders/Recalls; Sent: 07/12/2023 14:25:46 EDT Show up: 07/30/2023 14:25:00 EDT Subject: Ambulatory Reminder Reminder/Recall Call and schedule when [facility] approves Dr. Bullock. From: Bo Garduno ([facility] - Reminders/Recalls) To: Suzie Wheeler; Sent: 09/07/2023 [...] this on the reminder for 04/20. Normal [facility] Lab Reportson 07-23-2023 Lab Reports [id number]#1.00CD:127 Normal [facility] Ambulatory Visit Summaryon 0 07-12-2023 Ambulatory Visit Summary RENA LEDESMA :1960 Visit Date:07/12/2023 Ambulatory Visit Instructions Your Diagnosis Screen for colon cancer History of esophageal ulcer Your Care Team Attending Physician - Garima Eastman CNP Primary Care Physician - Thomas Lamar MD [...] WILLIAMSON, Davey Hoover Where: [facility] Consent Formson 07-12-2023 Consent Forms [id number]#[id number] [facility] Gastroenterology Office/Clin ic Noteon 07-12-2023 Gastroenterology [...] Oral, D (more content not included)... Normal [facility] Comment on above: Result Comment: Elec tronically Signed By: Jaren LEON, Garima Zamora\.kerry\Date and Time Signed: 07/12/23 14:14 EDT Lipid Panel Standardon 07-08 Cholesterol [Mass/Vol] 216.0 mg/dL High 66.0-200.0 [facility] Comment on above: Performed By: #### 1 [id number], [id number] #### [facility] (DEFAULT) [address] [place] [address] Cholesterol in HDL [Mass/Vol] 74 mg/dL High 40-71 [facility] Comment on above: Performed By: #### 1 [id number], [id number] #### [facility] (DEFAULT) [address] [place] [address] Cholesterol in LDL [Mass/Vol] 120 mg/dL High 1-100 [facility] Comment on above: Performed By: #### 1 [id number], [id number] #### [facility] (DEFAULT) [address] [place] [address] Cholesterol.total/ Cholesterol in HDL [Mass ratio] 2.8 {ratio} Normal 0.0-4.5 [facility] Comment on above: Performed By: #### 1 [id number], [id number] #### [facility] (DEFAULT) [address] [place] [address] Triglyceride [Mass/Vol] 105.0 mg/dL Normal 0.0-150.0 [facility] Comment on above: Performed By: #### 1 [id number], [id number] #### [facility] (DEFAULT) [address] [place] [address] VLDL. 21 mg/dL Normal 5-40 [facility] Comment on above: Performed By: #### 1 [id number], [id number] #### [facility] (DEFAULT) [address] [place] [address]10 PSA Screenon 07-08-2023 PSA Screen 3.42 ng/mL Normal 0.00-4.00 [facility] Comment on above: Result Comment: kingskyI [employer] Clinical System (Chemiluminescence) Values obtained with different assay methods or kits cannot be used interchangeably. Results cannot be interpreted as absolute evidence of the presence or absence of malignant disease. Performed By: #### 1 [id number], [id number] #### [facility] ([facility]) [address] [place] [address] Pathology Noteon 07-02-2023 Pathology Note [id number]#1.00CD:127 [facility] Pathology Reporton Pathology Report [id number]#1.00CD:127 [facility] Postoperative Documentson Postoperative Documents [id number]#1.00CD:127 [facility] IntraOperative Documentson 0 06-24-2023 IntraOperative Documents [id number]#1.00CD:127 [facility] Consenton 06-21-2023 Consent [id number]#1.00CD:127 [facility] Discharge Instructionson Discharge Instructions [id number]#1.00CD:127 [facility] Main OR Intraoperative Recor don 06-21-2023 Main OR Intraoperative Record IntraOp Document Type FT Summary Primary Physician: Danny AMES MD Finalized Date/Time: 06/21/23 09:07:05 Pt. Name: RENA LEDESMA/Sex: 1960 Male Med Rec #: [id number] Physician: Danny AMES MD Financial #: [id number] Pt. Type: O Room/Bed: Endo 01/27 Admit/Disch: [...] 3 Case Attendee Gita STEINER, Adal Ledesma SENIOR SOFTWARE DEVELOPMENT MANAGER, Leah AMES MD, Danny Fontaine Role Performed Scleroscope Tester - Primary Scrub - Primary Surgeon - [...] 6 Case Attendee Laura Daley, Jose Stratton FRACTIONATION SUPERVISOR, Laine Leahy Role Performed Staff - Other Anesthesiologist FRACTIONATION SUPERVISOR Armature Bander Time In 06/18/23 13:32:00 06/18/23 13:27:00 06/18/23 [...] Out Jose Eden Given Participants Baltazar Hardin SENIOR SOFTWARE DEVELOPMENT MANAGER, BEN Castro MD, Maher, Souter RN, Morgan [...] Yes Colonoscopy- Internal hemorrhoids Last Modified By: Giat STEINER, Adal Hansen 06/18/23 14:07:01 Post-Care Text: [...] injury to (more content not included)... Normal [facility] Consent for Treatmenton 05-30 Consent for Treatment [id number]#1.00CD:127 Normal [facility] Discharge Instructionson Discharge Instructions BALTAZARRENA :1960 [...] 24 hours Discharge Diet(s) Regular Pharmacy Information [facility] Saige Discharge Instructions Discharge Instructions Previously Scheduled Follow-Up Appointments Wednesday 1:45 PM EDT With: ESTEFANI WILLIAMSON, Davey Hoover Where: [facility] Comment on above: Result Comment: [...] medications. Return to activities:: After 24 hours. [facility] Comment on above: Result Comment: Elec tronically Signed By: Danny AMES MD\.br\Date and Time Signed: 06/18/23 14:01 EDT Other Comment: Linda cardenas Attachment - attachment storage system not supported [id number] Can be viewed in source systemMissing Attachment - attachment storage system not supported [id number] Can be viewed in source system Endoscopic [...] Follow-up in GI clinic in 2 weeks [facility] Comment on above: Result Comment: Elec tronically Signed By: BEN WLILIAMSON, Danny\.br\Date and Time Signed: 06/18/23 14:00 EDT Other Comment: Linda cardenas Attachment - attachment storage system not supported [id number] Can be viewed in source systemMissing Attachment - attachment storage system not supported [id number] Can be viewed in source systemMissing Attachment - attachment storage system not supported [id number] Can be viewed in source systemMissing Attachment - attachment storage system not supported [id number] Can be viewed in source systemMissing Attachment - attachment storage system not supported [id number] Can be viewed in source systemMissing Attachment - attachment storage system not supported [id number] Can be viewed in source system Main OR PACU I Recordon 05-30 Main OR PACU I Record PACU Phase I Document Type FT Summary Primary Physician: Danny AMES MD Finalized Date/Time: 06/18/23 14:49:43 Pt. Name: BALTAZAR RENA Mckeon/Sex: 1960 Male Med Rec #: [id number] Physician: Danny AMES MD Financial #: [id number] Pt. Type: O Room/Bed: [facility] 01/27 Admit/Disch: 06/18/23 11:58:07 - Institution: Case [...] By: Rosalinda Ramirez RN 06/18/23 14:49 Normal [facility] Main OR Preoperative Recordo n 06-18-2023 Main OR Preoperative Record Holding Area Document Type FT Summary Primary Physician: Danny AMES MD Finalized Date/Time: 06/18/23 12:24:49 Pt. Name: RENA LEDESMA/Sex: 1960 Male Med Rec #: [id number] Physician: Danny AMES MD Financial #: [id number] Pt. Type: O Room/Bed: [facility] 01/27 Admit/Disch: 06/18/23 11:58:07 - Institution: Case [...] By: Antonina Farrar RN 06/18/23 12:24 Normal [facility] Monitor Recordon 06-18-2023 Monitor Record [id number]#[id number]:127 Normal [facility] Monitor Record [id number]#1.00CD:127 Normal [facility] Patient Education - Texton 0 06-18-2023 [...] Document Re-Released: 05/09/2007 ExitCare? Patient Information ?2009 [place]. Gastroenterology Hemorrhoids Hemorrhoids are swollen veins that [...] is this (more content not included)... Normal [facility] Progress Note-Physicianon Progress Note-Physician Patient: RENA [...] meets criteria ( To home ). Normal [facility] Comment on above: Result Comment: Elec [...] BPH with urinary obstruction / SNOMED CT 1166981094 / Confirmed BMI 27.0-27.9,adult / SNOMED CT 7222804053 / Confirmed Anticoagulated / SNOMED CT 796602642 / Confirmed Eczema / SNOMED CT 81596840 / Confirmed Erectile dysfunction / SNOMED CT 2909429004 / Confirmed Gout / SNOMED CT 474861379 / Confirmed Hemorrhoids / SNOMED CT 747920175 / Confirmed Personal history of bladder cancer / SNOMED CT 652407503 / Confirmed Panic attack / SNOMED CT 896730633 / Confirmed Screen for colon cancer / SNOMED CT 794116596 / Confirmed Elevated PSA / SNOMED CT 5282676262 / Confirmed Decreased sex drive / SNOMED CT 442977046 / Confirmed Retinal hemorrhage / SNOMED CT 50334442 / Confirmed Sleep apnea / SNOMED CT 801082011 / Confirmed Ulcer of esophagus / SNOMED CT 40154245 / Confirmed Other membranous urethral stricture, male / SNOMED CT 858915202 / Confirmed Urinary urgency / SNOMED CT 654014895 / Confirmed Histories Procedure history: Cystoscope (47953849) on 11/19/2020 at 60 Years. cysto on 10/31/2019 at 59 Years. Transrectal biopsy of prostate using ultrasound (US) guidance (2164661812) on 08/22/2019 at 59 Years. Cystoscopy (84718845) on 11/08/2018 at 58 Years. Cysto/TURP/TURBT (760771081) on 01/10/2015 at 54 Years. Cystoscopy and transurethral biopsy of bladder (3031139126) on 01/10/2015 at 54 Years. Cysto (86891312) on 12/17/2014 at 54 Years. Comments: 07/12/2019 10:00 Nikki Joya 07/01/15, 10/21/15, 01/21/16, 05/05/16, 11/17/16, 11/09/17, 11/08/18 Urodynamics (175685820) on 12/05/2014 at 54 Years. Tonsillectomy (687087092). Colonoscopy (693140704). Cystoscopy (11419986). Nose - repair or plastic operation (468475964). Social History Social & Psychosocial Habits Alcohol [...] adequate air exchange. Cardiovascular: Regular rhythm. Plan [place] [employer]esthesi[employer] (ASA) physical status classification: Class II. Anesthetic Preoperative Plan: Anesthesia General. Normal [facility] Comment on above: Result Comment: Elec [...] did not have another work-up done at [facility]. He denies any dysphagia, heartburn, or significant discomfort in the esophagus. He is able to eat solid food with no trouble. He is not taking any anti-acid. His last colonoscopy was done at [facility] over 10 years ago. He denies [...] more than 10 years ago done at [facility]. He has no family history of colon cancer. He is not on any antiplatelets or anticoagulation medication except for aspirin. We will proceed with a colonoscopy. Portions of this record may have been created with voice recognition artificial intelligence software, specifically Likely.co, Bkam and or Wysiwyg. Substitutions may have occurred due to the inherent limitations of voice recognition and artificial intelligence software. ATTESTATION: Documentation services were performed after patient or guardian consented to allow [employer] to record this visit. (more content not included)... Normal [facility] Comment on above: Result Comment: Elec tronically Signed By: Josh Celaya\.br\Date and Time Signed: 05/05/23 12:56 EDT\.br\Electronically Co-Signed By: Danny AMES MD\.br\Date and Time Co-Signed: 05/09/23 22:04 EDT Consent for Immunizationon 0 05-06-2023 Consent for Immunization [id number]:127 Normal [facility] Ambulatory Visit Summaryon 0 05-05-2023 Ambulatory [...] WILLIAMSON, Davey Hoover Where: [facility] Coding Summary.on 03-04-2023 Coding Summary. CD:[id number] Ww+PGhlY WQ+GI9XVEFcX62hgXWfeC1sM9PBA CoSFzzyIGVREIhBDkHvrbPpJJ0cb XNjZXJu IC8+LJ1yRKPeTgbzfCFwz7B9kGH2 B27bzk8oZDrevQP0EHRkAxMrxrrh w9akgCa8FDvjZfdiVgHh RZZrbQ86CRX8zU22Kj76wXKpbNJm w5vyxVk1TrJgGITlOGN9oTvzPGru r4ZhVSWxD05uaBZsy7P5 ZKDpqMzeqWAhWuSvaLJ8vS0pHClv bubkr8mjyisyAti1tb11zPOig2H1 eVS2H4MmdyP3OYGgoCLp MyarkAFNxD2jwcdvy1kkzyusLwCn JZFwFOt6PTa8VHBtgNufItUpDQ12 YOV5DNIysrZiD7ScNCLz hCsrViA1g9B6Uc4NZ4DKJpbkM2YQ TUFSWTwvdGQ+RJ15sv71K0IuGvmp Mrv0CSHoMLO9lON3lW4p QGHdMRlpx1M4zCH0A1DkenUxrl8y s9qjQOGnLYskQ81szJHky7H5SSXj eAA5UKIfwDilXgYweJ32 Oyc+FEFkeXzmr9CkUckuc4tjo0sv lMm6YmdbTKOfvvWbhMnwWOS2y4Ya Kz7eVVXjsHH5oTF6gT4b IxZyNdP9POheA587YkHkrUMvJiyr Z33yH5JgbTX+RHGlSvl0EPVxfNiq HX0tR4QbLXOvquahxEUp zJojSZ9qCDFqpvqaGMXhnF2bTCXt R3t6KzGrUhP0YNuzN7BdQKGxcxrt Vg80uU4eThYrYzW9EEda Y6OqalZ0FWVvvDQkZXrcYJJ2O52j y5M3MPJyRFPoJCV6wCB8gU3mwTsa bjogbGVmdDsgdmVydGlj SRgtJDktQ950QRVwoGzkXwGhRVts ZyBEYXRlOiAgMDQvMDYvMjAyMzwv dGQ+SLPoWBN8eLdfLGWc kVSrDIboVl0uiZosoJskNA9gKFIf nxhvCSWyjC8fIQHwhQUtxOmdDX3u KXVdhrddr778MjJmILE0 NVHviHEyA7GvmU0lNnUpRVTaIZKj W2OgvHZhCAicO920GEnjUhO8DYQj mbHuJ7AqZHSneYuyFhB0 h8Y2Wb3Eu5LsiewmF6MmvHIsAaKh YhoiZSf8Y2TlUnefsDL+KA65LCAu VR34ETt8TIO1mPihHJpl VYSwX8RcuY9mGvPjPUAwZPHsUsd+ PHRhYmxlIHdpZHRoPScxMDAlJyBz rGnmNY7gTh0kGDPjZJGy mUqaxQVbNsWtm8ugEUQmSUlpTO9a aUpvX8YdqRS4UVBai4z3Mn72S38k Q9GqjOV+WIRheFU8uUU3 dP5dRxXbHhM4JKisC976MeGshUUh Oykil0vnn7kyoOn6KrV6RDInycTy cDcoYBO0n4ByNi98E34c XDwuQQHaZUSyDJDuAAFevOiaen9s sJ1mKk1+AVFliQF3lXO1uQ6mEbRk VhG6QUyxU777UeIyiWUb Napfy2oxb3nywCs6CbRxITInlkTc yNnrMZL7z7DiJx60T5DdnKrgv2Wr Tpt3xj47zAYpg1C4zSV0 S4ZdISQwhhllqBWkmUqyQT6kLIUk qvvlEVSmtB9wPQSqV8l8WiFnLrM0 JIvnX7UvgjE9JLOxzJQa RDEanUYQyR4loaaqu6rfrddwCtWp XZCyIAj6CCs8IBDtnOufXeZaHEK7 OnY4QOB4aBUrlY6utQvv hoztkB3rGzq+ITZ5cQLlhQYNGG0r OjwvdGQ+TSSkKEN5lZnmUCihHUNp gC6bUZByF9m1KjRhMwW4 QOccF3SkqjD7AKEkqWUgIUQgmDOA cL5cjxzzr0vieitzVpDrPEQeXPh4 FXa1KBMlxFoyDyEtIBI3 RkS7KIJ2cDEkdG1yaSpyzytbfG4m Oyc+KxdpaHdoWXX1SZr7F7CcIxq5 QOOxzJywXT7suDDlWElk Uy2smSevzGouCL3vSDIzutjex180 DdYwa4bfBXXpeIFzLJrwEOR2L39z o1V5DFBfOGJjSRD8dZC0 yW6sqWhbuyronAJckFuyzhTieLuj DCxrYZxzP791JEIosDsmTkAhDTf7 Q6DdMco5UJFvkLppOI4d oLGpPYjmZe7maTehjYitWV8iNYQe dvmlc376LpPxb8keNIVgfQVzUOag LYB6L35je9E2TMZfEUPd EHQ3nQM1qQ9stUojovubhALvfZhe mxPfbCoaGRdmZBfzN825XRNiqIgc XtKlxKv6Q9ClWlr9VLTa aRalCF0zpARcJUnyMp3caKpmjBjn EG4zBRGeigqwg376EdOen2tmTLKl tIVfBUfyNRY5U03sx9A1 RPMdAKBeDDV7kEN5xQ1xgLxqjpmb mCCziXnoobLreBbdJBsmVZwbL296 IHRvcDsnPlBhdGllbnQg SXygWGm2T6YePxkkvQD+MO02GBZl VZ18cIRbgCZoe0dnwUk8UnRcNMVq IVD8kAeqAEiqr0SpGWCs J96ewRAmn9I1GCNhwOnzcUGbUkJv dTZ8rS5kAQuavtown6uflnbqSjan x4kfav98yA62H94hPDtr BOHyYUHcYBMtALVbbFhrvr4oqJ8t Ii8+MKBehRJ8hGJ2nB6lYBFtSkU1 YNlcH201QnPvrYDyWeti n2sot9xngFx2KqJ7BXHinrGhkMto XCT7f4PwNy09R40dCYfrYSZmXJNi DOKpRWXmaHqegv5xiH6z Ii8+MFEgfCZ7bWS9nQ0dAxIqUfG8 ASinK131CaVplIVmOuxfW11zF5Ow dXA+FDGqWpp3GIKowOzg PB3fdACrWDohDo7qQZO4ShUjCgAk BXaqB3CiQGLqvffdnnybwBO5JCOl OPIsrN33Vb7awHtsUDMm yVJRpC2nxyorj8vuercdTcEhVQIv RFl7HKk6STApyImhFjBcNXL2PvL0 UMK9mEKygG5kqNblabrb aP3tL0UxNLJskkhbBt20eJ6mUfWu VxP0BXbxHks+A4RBVLXDKttgOEBF RVIgRzwvdGQ+PHRkIHN0 gZxkGWezPFCvjE1kSEWiV9e1WsCy IiI3VXpwN9AqWYNngserOv06pJ6d RsJvYgV1MSusM2YqjmQ4 HAWypMLzGAeaILO4W57fr0I8KANg MMPrLPN0pFW8xR0pbFtlwflweWJv dDsgdmVydGljYWwtYWxp A580GYHhtTgaIfY0JnD9TeB0BDn7 V0YxZic3PSBmzJzvBK2fiMYfAOve Ow9ngEknwPzlPR4lFCJh qdltZLWmtO7nONUulXBisYwaFF1h VHQbqynye747YmQkLSQ5JNGetQYw K1OwgX3bDrTmUQZkJFKe Z0FtfOVuCMaxE744UDifJfX2SSIq asVkH7TdQNMjhEkoEbT2q4C9Rb38 MyBZZWFyczwvdGQ+PHRk NPF7eEktLVlxFQFpmR0aKNObM9n8 RuSfDhG2LMuxR0XxKVIriyyoTt79 cO1aMbKaRhU7QLrnV1Ax owS5UQAmkBNlAUvbXKI3Z32tk3O0 MMGlWMRpLPC3nNU2mP9dnOqsulbf bGVmdDsgdmVydGljYWwt FAipQ614EXWhsTdfOt5yeAE3X3Sv Zex7IAGknGubKR6pbMXiDNioYq9n nHjezChlYD2iYJTjbelw SMErmT7zLBGozBJceRmsFR0mAVEm yaqfi446XfKoZRH4DOGkbRBvZ5Tq jG8aNnMnORIkXESgS0Ux lTOdUFtnM793IBahLbE5PKAljdJz P2LoSKAosKkyRuN5o5Y3Bl4RpQNi Z6MgT9k8H5CqUobyfRY+ ST53NUCgQR64wOOszHYcu1rrlEz7 TzWbOMEjKUP2xAxaIVyqh1QlSWZc Q48lmMKmi5S9LVEskXcc rRPpNkOlbIY2oC8nHQjigqbov3nk fmodXgibj8ekub92wZ12U03rWPnl ZHRoPSIzMCUiIHZhbGln mv1uaI3vNa7+UHJjcTS9jUT2zJ9l TyCfAkT3CEbeB550XzDueIGwCusf o1lal8sjyTd5CzRxAWBd kyNblKngXXX0t6AeCm44E43fTZhi XDYkHFLxKPWdIPHspFbptc2zfF8v Ii8+ZI4ut3kqqd36nI24 dHI+EGVnYMA9wNhqXAekYOKrwP9n MGsjIoV8GCEtKuKuyX15yUSlBLek Lo0lgJmxmZbcZE8tQJCb vnqtc340MyAky6biUHBmbSVvMNxf WVW0A01zk3D7CDCyOOVzOED4vLK0 hD1koQxivrvzdHFjyMhh wpNuoJwyMBwdCFisZ194FWXwoGic ZwLwtTLhG6ubgkADOI2bLwdpoKJ+ BBItBZC5fNrhLYbaMWRy yN5yLENhJ2b3OgAaBxN6RUgfS1Ml icZ1VHGioIMzMQWyzQHZiK1wycye w8zoxfqyWyWcLJCiHRs6 DIb7ZFFtyCxpKlNcGEX2EtB9KMV4 pMOvpC5pkWkbcngmwP6xJfu+RklO OjwvdGQ+VZNbTOG2mYvw YWycTHXxqK5lSMHjT1r0KcMuKyX8 ZPasD7NlxvW3DOZgsSKxMXJynWIJ hP4ogugyi4lvntgwOxWr MMSgOYm5GTg1VEOpaYmlYgXeJKH4 ZqV1RSB3qEItfH6wrAaspgizgH5m Oyc+TVJOOjwvdGQ+PHRk KVN8hVsySCdiZHGihI7hCEDkQ7c7 PoDtBcO4HZwpA7QgnbV9FWMzjKFo LKYtrCKZiR1nvmjcj1eo dtxaPnZsTYMuOWj1RLm4UEHfyVjm IqZgUQB3GcM6VIK7iVQsvW6nxFcq omtnbB1eGbp+ORV3JKZ3 HC66GA28Y4FuFubtvONzkOW+PHRh YmxlIHdpZHRoPScxMDAlJyBzdHls IA3xRm1qPTRqKOLgxIkm cHNlOiBj (more content not included)... Normal [facility] Discharge Instructionson Discharge Instructions [id number]#1.00CD:127 Normal [facility] Pathology Reporton Pathology Report [id number]#1.00CD:127 Normal [facility] Progress Note-Physicianon Progress Note-Physician Patient: RENA [...] list: All Problems Anticoagulated / SNOMED CT 395114797 / Confirmed BMI 27.0-27.9,adult / SNOMED CT 0986587106 / Confirmed BPH with urinary obstruction / SNOMED CT 0225528873 / Confirmed Decreased sex drive / SNOMED CT 619866326 / Confirmed Eczema / SNOMED CT 37799955 / Confirmed Elevated PSA / SNOMED CT 7848512165 / Confirmed Erectile dysfunction / SNOMED CT 4570963151 / Confirmed Gout / SNOMED CT 767428668 / Confirmed Hemorrhoids / SNOMED CT 339459742 / Confirmed Other membranous urethral stricture, male / SNOMED CT 834776467 / Confirmed Panic attack / SNOMED CT 908947221 / Confirmed Personal history of bladder cancer / SNOMED CT 527293161 / Confirmed Retinal hemorrhage / SNOMED CT 46028641 / Confirmed Sleep apnea / SNOMED CT 369625175 / Confirmed Urinary urgency / SNOMED CT 123031227 / Confirmed, Active Problems (15) Anticoagulated BMI [...] in all extremities. Gastrointestinal: Soft, Non-tender. Plan [place] [employer]hes[employer] (ASA) physical status classification: Class II. Anesthetic Preoperative Plan: Anesthesia General. [facility] Comment on above: Result Comment: Elec tronically Signed By: Savi WILLIAMSON, Guillermo Leahy\.br\Date and Time Signed: 02/25/23 12:43 EDT IntraOperative Documentson 0 02-24-2023 IntraOperative Documents [id number]#1.00CD:127 [facility] Consenton 02-19-2023 Consent [id number]#1.00CD:127 [facility] Main OR Intraoperative Recor don 02-19-2023 Main OR Intraoperative Record IntraOp Document Type FT Summary Primary Physician: Rafael Powell MD Finalized Date/Time: 02/19/23 10:58:11 Pt. Name: RENA LEDESMA/Sex: 1960 Male Med Rec #: [id number] Physician: Financial #: [id number] Pt. Type: E Room/Bed: / Admit/Disch: 02/18/23 [...] Sherry WILLIAMSON, Rafael Balbuena RN, Albertina Samayoa FRACTIONATION SUPERVISOR, Sebastian Aquino Role Performed Surgeon - Primary Scleroscope Tester - Primary FRACTIONATION SUPERVISOR Time In 02/18/23 14:57:00 02/18/23 14:57:00 02/18/23 [...] and tissue Entry 1 Skin Integrity Intact, [place], Warm, and Skin Abnormality No Dry Outcomes Met? Yes Last Modified By: Albertina Balbuena RN 02/18/23 15:00:44 Post-Care Text: The patient is free from signs and symptoms of (more content not included)... Normal [facility] Postoperative Documentson Postoperative Documents [id number]#[id number]:127 [facility] Consent for Treatmenton 01-28 Consent for Treatment [id number]#1.00CD:127 [facility] Consultation Noteon 02-19-20 Consultation Note [...] virus vaccine, inactivated 09/18/2022 Recorded SARS-CoV-2 (COVID-19) mRNAMUL.ORD![id number] 09/18/2022 Recorded SARS-CoV-2 (COVID-19) mRNA BNT-162b2 vax [...] signs and p.o. challenge with water Normal [facility] Comment on above: Result Comment: Elec [...] and Complexity of Problems Differential Diagnosis: [] [facility] Data External documents reviewed: [] My EKG [...] By: Mckayla (more content not included)... Normal [facility] Comment on above: Result Comment: Elec tronically Signed By: Bailey Woodard, Kenji Obrien\.br\Date and Time Signed: 02/18/23 14:23 EDT Main OR PACU I Recordon 01-28 Main OR PACU I Record PACU Phase I Document Type FT Summary Primary Physician: Rafael Powell MD Finalized Date/Time: 02/18/23 16:25:13 Pt. Name: RENA LEDESMA/Sex: 1960 Male Med Rec #: [id number] Physician: Financial #: [id number] Pt. Type: E Room/Bed: / Admit/Disch: 02/18/23 [...] By: MINA KO RN 02/18/23 16:25 Normal [facility] Main OR PACU II Recordon Main OR PACU II Record PACU Phase II Document Type FT Summary Primary Physician: Rafael Powell MD Finalized Date/Time: 02/18/23 19:55:20 Pt. Name: RENA LEDESMA/Sex: 1960 Male Med Rec #: [id number] Physician: Financial #: [id number] Pt. Type: E Room/Bed: / Admit/Disch: 02/18/23 [...] Signed By: Damian Conway 02/18/23 19:55 Normal [facility] Main OR Preoperative Recordo n 02-18-2023 Main OR Preoperative Record Holding Area Document Type FT Summary Primary Physician: Rafael Powell MD Finalized Date/Time: 02/18/23 14:40:37 Pt. Name: RENA LEDESMA/Sex: 1960 Male Med Rec #: [id number] Physician: Financial #: [id number] Pt. Type: E Room/Bed: / Admit/Disch: 03/23/23 [...] 14:34 Humera Montaño RN 02/18/23 14:40 Normal [facility] Monitor Recordon 02-18-2023 Monitor Record [id number]#1.00CD:127 Normal [facility] Monitor Record [id number]#1.00CD:127 Normal [facility] Operative Reporton Operative Report Patient: MELISSA [...] day(s), # 90 tab(s), Refills(s) 3, Pharmacy: [facility], 177, cm, 09/22/21 14:37:00 EDT, Height/Length Dosing, 87, kg, 09/22/21 14:37:00 EDT, Weight Dosing Keflex 500 mg Cap: 500 mg = 1 cap(s), Oral, Daily, Take 1 tab day before procedure and 1 after procedure, # 2 cap(s), Refills(s) 0, Pharmacy: [facility]/pharmacy #[id number], 177, cm, 09/28/22 14:37:00 EDT, Height/Length Dosing, 87, kg, 09/28/22 14:37:00 EDT, Weight Dosing sildenafil 100 mg Tab: 100 mg = 1 tab(s), Oral, As Directed, 1 hour before sexual activity, # 30 tab(s), Refills(s) 2, Pharmacy: [id number], 177, cm, 09/22/21 14:37:00 EDT, Height/Length [...] Plan EGD: Course: Progressing as expected. Normal [facility] Comment on above: Result Comment: Elec [...] Catalino STEINER, Adal Agustin Referring Source: Location: [place] Completion Date/Time: 02/18/2023 13:38:00 [facility] Emergency Department Pre-Hospital Report Form Vital Signs: Pre-Hospital Report: Treatment in Route: Response to Treatment: Misc. Issues: Normal [facility] Progress Note-Physicianon Progress Note-Physician Patient: RENA LEDESMA Age: 62 years Sex: Male : 1960 Associated Diagnoses: None Author: Savi WILLIAMSON, Guillermo Leahy Postoperative Information Postoperative disposition: Postoperative disposition: To PACU. Optimetrix number: Optimetrix number [id number]. Anesthetic utilized: General. Physical Examination Vital Signs [...] meets criteria ( To home ). Normal [facility] Comment on above: Result Comment: Elec [...] mGy = na DAP = na Normal [facility] XR Chest 2 Viewson 3 XR [...] Avalos FINAL REPORT Dictated: 02/18/2023 2:23 pm Jose Hooker DO Signed (Electronic Signature): 02/18/2023 2:23 pm Signed by: Jose Hooker DO Transcribed by: MANA Technologist: JAXSON Technical Comments Radiation Dose: Ka,r in mGy = na DAP = na Normal [facility] TESTOSTERONE, TOTALon 2020 Testosterone [Mass/Vol] 340 ng/dL Normal 264-916 [facility] Comment on above: Result Comment: Adul t male reference interval is based on a population of healthy nonobese males (BMI <30) between 19 and 39 years old. Blue, et.al. JCEM 2017,102;2492-1285. PMID: 36729740. Performed By: #### T ESTTOT #### [facility] [address] [place] [address] Yusef Noel COVID-19 PCRon 08-20-2020 SARS-CoV-2, [place] Not Detected Normal Not Detected [facility] Comment on above: Result Comment: This nucleic acid amplification test was developed and its performance characteristics determined by [employer]. Nucleic acid amplification tests include PCR and [...] assay. Performed By: #### C VDPCR #### [facility] [address] [place] [address] Yusef Noel COVID-19 PCRon 08-10-2020 SARS-CoV-2, [place] Not Detected Normal Not Detected [facility] Comment on above: Result Comment: This nucleic acid amplification test was developed and its performance characteristics determined by [employer]. Nucleic acid amplification tests include PCR and [...] assay. Performed By: #### C VDPCR #### [facility] [address], [place] [address] Yusef Noel FOOT RIGHT 3 [facility] 7 FOOT RIGHT 3 [facility] [address] [place] [address] Patient Name: RENA LEDESMA : 1960Sex: MAge: Race: WhiteMRN: [id number]. Location: 84Patient Status: Date: 08/19/2017 12:45:00 PMCompleted Date: 08/19/2017 12:47 PMRequesting Provider: MARYLIN SARGENT Attending Provider: Report Copy To: Signs & Symptoms: S92.421D Disp fx of dist phalanx of r great toe, 7thD V98Ffteskt: AthenaComments: , , , Ordering Provider - MARYLIN SARGENT PA-C , Exam: FOOT RIGHT 3 VWSAccession #: [id number] ELLEN T RIGHT 3 VWS 08/19/2017 12:47 [...] Electronically signed by:Blake Mclean M.D.. Transcribed by: [email or web address], User Resident: Electronically Signed by: BLAKE MCLEAN @ 08/19/2017 04:09 PM Normal [facility] Comment on above: Order Comment: , , = ========= , Ordering Provider - MARYLIN SARGENT PA-C , Vital Signs Date Time Vital Sign Value Performing Clinician Facility 09-24-2023 08:16-0400 Blood Pressure Location Davey JARA [facility] 09-24-2023 08:16-0400 Diastolic blood pressure 87 mm[Hg] Davey JARA [facility] 09-24-2023 08:16-0400 Heart rate 68 /min Davey JARA [facility] 09-24-2023 08:16-0400 Respiratory rate 16 /min Davey JARA [facility] 09-24-2023 08:16-0400 Systolic blood pressure 133 mm[Hg] Davey JARA [facility] 07-12-2023 14:06-0400 Blood Pressure Location Garima Jaren [facility] 07-12-2023 14:06-0400 Body temperature 97.16 [degF] Garima Eastman [facility] 07-12-2023 14:06-0400 Diastolic blood pressure 84 mm[Hg] Garima Eastman [facility] 07-12-2023 14:06-0400 Heart rate 72 /min Garima Jaren [facility] 07-12-2023 14:06-0400 Systolic blood pressure 137 mm[Hg] Garima Eastman [facility] 05-05-2023 08:17-0400 Diastolic blood pressure 80 mm[Hg] Delgado SALAM [facility] 05-05-2023 08:17-0400 Mean blood pressure 105 mm[Hg] Delgado SALAM [facility] 05-05-2023 08:17-0400 Systolic blood pressure 154 mm[Hg] Delgado SALAM [facility] 05-05-2023 08:15-0400 Blood Pressure Location Delgado SALAM [facility] 05-05-2023 08:15-0400 Diastolic blood pressure 80 mm[Hg] Delgado SALAM [facility] 05-05-2023 08:15-0400 Heart rate 79 /min Delgado SALAM [facility] 05-05-2023 08:15-0400 Respiratory rate 16 /min Delgado SALAM [facility] 05-05-2023 08:15-0400 Systolic blood pressure 154 mm[Hg] Delgado SALAM [facility] 02-18-2023 19:14-0400 Heart rate 67 /min [facility] 02-18-2023 19:14-0400 SaO2% (BldA) [Mass fraction] 99 % [facility] 02-18-2023 19:14-0400 Respiratory rate 16 /min [facility] 02-18-2023 19:14-0400 Diastolic blood pressure 89 mm[Hg] [facility] 02-18-2023 19:14-0400 Mean blood pressure 115 mm[Hg] [facility] 02-18-2023 19:14-0400 Systolic blood pressure 166 mm[Hg] [facility] 02-18-2023 19:14-0400 Body temperature 97.7 [degF] [facility] 02-18-2023 18:15-0400 Heart rate 62 /min [facility] 02-18-2023 18:15-0400 SaO2% (BldA) [Mass fraction] 98 % [facility] 02-18-2023 18:14-0400 Respiratory rate 16 /min [facility] 02-18-2023 18:14-0400 Diastolic blood pressure 87 mm[Hg] [facility] 02-18-2023 18:14-0400 Mean blood pressure 112 mm[Hg] [facility] 02-18-2023 18:14-0400 Systolic blood pressure 160 mm[Hg] [facility] 02-18-2023 18:14-0400 Body temperature 97.7 [degF] [facility] 02-18-2023 17:07-0400 Heart rate 61 /min [facility] 02-18-2023 17:07-0400 SaO2% (BldA) [Mass fraction] 98 % [facility] 02-18-2023 17:07-0400 Respiratory rate 18 /min [facility] 02-18-2023 17:07-0400 Diastolic blood pressure 83 mm[Hg] [facility] 02-18-2023 17:07-0400 Mean blood pressure 103 mm[Hg] [facility] 02-18-2023 17:07-0400 Systolic blood pressure 144 mm[Hg] [facility] 02-18-2023 17:07-0400 Body temperature 98.06 [degF] [facility] 02-18-2023 15:51-0400 Mean blood pressure 96 mm[Hg] [facility] 02-18-2023 15:51-0400 Respiratory rate 20 /min [facility] 02-18-2023 15:40-0400 Mean blood pressure 80 mm[Hg] [facility] 02-18-2023 15:40-0400 Respiratory rate 15 /min [facility] 02-18-2023 15:35-0400 Mean blood pressure 79 mm[Hg] [facility] 02-18-2023 15:35-0400 Respiratory rate 16 /min [facility] 02-18-2023 14:34-0400 Blood Pressure Location [facility] 02-18-2023 13:50-0400 Body temperature 98.06 [degF] [facility] 02-18-2023 13:50-0400 Heart rate 78 /min [facility] Encounters Encounter Date Encounter Type Care Provider Facility Start: 11-30-2023 End: 12-01-2023 ambulatory Davey JARA [facility] Start: 11-30-2023 End: 11-30-2023 Lab Drop off Davey JARA [facility] Start: 11-30-2023 End: 12-01-2023 ambulatory Davey JARA Facility:[facility] Start: 11-30-2023 End: 11-30-2023 Patient encounter procedure Davey JARA [facility] Start: 11-26-2023 End: 11-27-2023 ambulatory Davey JARA Facility:[facility] Start: 11-26-2023 End: 11-26-2023 Patient encounter procedure Davey JARA [facility] Start: 11-24-2023 End: 11-24-2023 ambulatory AMRIK MUNROE Not Available Start: 11-11-2023 End: 11-12-2023 ambulatory Jerica X Kristal Facility:[facility] Start: 11-11-2023 End: 11-12-2023 ambulatory Jerica X Orzech Facility:[facility] [place] Start: 11-09-2023 End: 11-10-2023 ambulatory ROSALINDA CHAPMAN Facility:[facility] Start: 11-09-2023 End: 12-12-2023 Lab Drop off ROSALINDA CHAPMAN [facility] Start: 11-08-2023 End: 11-09-2023 ambulatory Davey JARA Facility: [facility] Start: 11-08-2023 End: 11-08-2023 Patient encounter procedure Davey JARA [facility] Start: 09-24-2023 End: 09-25-2023 ambulatory Davey JARA Facility: [facility] Start: 09-24-2023 End: 09-24-2023 Patient encounter procedure [facility]y JARA [facility] Start: 07-12-2023 End: 07-13-2023 [facility]ulatory [facility] Start: 07-12-2023 End: 07-12-2023 Patient encounter procedure Garima Eastman [facility] Start: 07-08-2023 End: 07-09-2023 ambulatory [facility] Facility:[facility] Start: 06-18-2023 End: 06-18-[address] [facility] Facility:[facility] Start: 05-05-2023 End: 05-06-[address] [facility] Facility[facility] Start: 05-05-2023 End: 05-05-2023 Patient encounter procedure Delgado SALAM [facility] Start: 03-10-2023 ambulatory Jerica Giraldo Facility: [facility] Start: 02-18-2023 End: 02-18-2023 Emergency department patient visit Rafael Powell Facility:[facility] Start: 02-18-2023 End: 02-18-2023 Emergency department patient visit Kenji Avalos [facility] Start: 01-22-2021 End: 01-23-2021 Patient encounter procedure THOMAS CSATROY Facility:[facility] Start: 08-19-2020 End: 08-20-2020 Patient encounter procedure THOMAS HOY Facility:[facility] Start: 08-09-2020 End: 08-10-2020 Patient encounter procedure DANICA MUNROE Facility:[facility] Start: 08-19-2017 End: 08-20-2017 Ambulatory MARYLIN SARGENT Facility:[facility] Procedures Date Procedure Procedure Detail Performing [...] 12-05-2014 Urodynamic studies Kenji Avalos Colonoscopy Kenji Avaols Cystoscopy Kenji Avalos Nose - repair or plastic operation Danny AMES Tonsillectomy Kenji Avalos Plan of Treatment Date Care Activity Detail Author Start: 09-29-2024 ambulatory Ambulatory Facility:[facility] Immunizations Immunization Date Immunization Notes Care Provider Fa anita 09-17-2023 influenza virus vaccine, unspecified formulation Davey JARA [facility] 01-04-2023 zoster vaccine recombinant Delgado SALAM [facility] 10-24-2022 zoster vaccine recombinant Delgado SALAM [facility] 09-18-2022 influenza virus vaccine, unspecified formulation [facility] 09-18-2022 SARS-CoV-2 (COVID-19 ) mRNAMUL.[id number] [facility] 09-26-2021 SARS-CoV-2 (COVID-19 ) mRNA BNT-162b2 vax [facility] 09-01-2021 influenza virus vaccine, unspecified formulation [facility] 03-17-2021 SARS-CoV-2 (COVID-19 ) mRNA BNT-162b2 vax [facility] 02-20-2021 SARS-CoV-2 (COVID-19 ) mRNA BNT-162b2 vax [facility] 09-09-2020 influenza virus vaccine, unspecified formulation [facility] 09-02-2020 influenza virus vaccine, unspecified formulation [facility] 09-13-2019 influenza virus vaccine, unspecified formulation [facility] 09-20-2018 influenza virus vaccine, unspecified formulation [facility] 09-06-2017 influenza, unspecifi ed formulation [facility] 09-18-2015 influenza virus vaccine, unspecified formulation [facility] 08-28-2014 influenza virus vaccine, unspecified formulation [facility] 09-04-2010 influenza virus vaccine, unspecified formulation [facility] 07-03-2010 hepatitis A and hepatitis B vaccine [facility] 01-30-2010 hepatitis A and hepatitis B vaccine [facility] 01-02-2010 hepatitis A and hepatitis B vaccine [facility] Payers Date Payer Category Payer Unknown [id number] 1960 Unknown [id number] 1960 Unknown [id number] 2.16.84 0.1.864402.3.579.2.593 1960 Unknown [id number] 2.16.84 0.1.550093.3.579.2.593 1960 Unknown [id number] 2.16.84 0.1.162246.3.579.2.593 1959 Unknown [id number] 2.16.840 .1.906459.3.579.2.1259 1960 Unknown [id number] 2.16.8 40.1.313721.3.579.2.727 1960 Unknown [id number] 2.16.8 40.1.709253.3.579.2.727 1959 Unknown [id number] 2.16.8 40.1.661586.3.579.2.727 1959 Unknown [id number] 2.16.8 40.1.718232.3.579.2.727 1959 Unknown [id number] 2.16.8 40.1.046534.3.579.2.727 1959 Unknown [id number] 2.16.8 40.1.978045.3.579.2.727 1959 Unknown [id number] 2.16.8 40.1.789756.3.579.2.727 1959 Unknown [id number] 2.16.8 40.1.860629.3.579.2.727 1959 Unknown [id number] 2.16.8 40.1.798863.3.579.2.727 1959 Unknown [id number] 2.16.8 40.1.365445.3.579.2.727 1959 Unknown [id number] 2.16.8 40.1.388365.3.579.2.727 1959 Unknown [id number] 2.16.8 40.1.333601.3.579.2.727 1960 Unknown [id number] 2.16.8 40.1.900580.3.579.2.727 Worker's Compensation [id number] Social History Date Type Detail Facility Start: 02-18-2023 End: 09-24-2023 Tobacco smoking status Ex-smoker (finding) [facility] Sex Assigned At Male [facility] Start: 11-11-2023 Tobacco smoking status Never [facility] Medical Equipment Procedure Code Equipment [...] 11-30-2023 Functional Status N/A [facility] [place] 09-24-2023 Functional Status N/A [facility] [place] 07-12-2023 Functional Status N/A [facility] 05-05-2023 Functional Status N/A [facility] 02-18-2023 Functional Status N/A [facility] Clinical Notes 02-18-2023 to 11-30-2023 [...] urethra. Follow these instructions at home: Take osff-vnf-llbudrq and prescription medicines only as told by [...] Document Reviewed: 06/03/2022 Elsevier Patient Education 2022 [employer] Follow Up Care 11/23/2023 16:14:09 With:ESTEFANI WILLIAMSON, Davey Hoover, URL Address: [facility] [address] , [place] [address]- When: Unknown Comments:Appt scheduled for 09/29/24 [facility] [place] 09-24-2023 Hospital Discharge instructions Patient Education 09/24/2023 [...] treatment? Where to find more information [employer]: www.cancer.org [employer]: www.auanet.org Contact a health care [...] provider. Document Revised: 05/11/2022 Document Reviewed: 05/11/2022 [employer] Patient Education 2022 [employer]. Follow Up Care 09/28/2022 15:56:00 With:ESTEFANI WILLIAMSON, Davey Hoover, URL Address: [address] [place] [address]- When: Unknown [facility] 07-12-2023 Hospital Discharge instructions Patient Education 07/12/2023 [...] including vitamins, herbs, eye drops, creams, and nejx-mdu-grlqcmo medicines. Any problems you or family members [...] provider tells you to take them. Taking psbi-lfl-jrpxzvu medicines, vitamins, herbs, and supplements. General instructions [...] provider. Document Revised: 11/09/2022 Document Reviewed: 07/08/2022 [employer] Patient Education 2022 [employer]. Follow Up Care 07/06/2023 13:47:03 With:Garima Eastman CNP Address: When:1 to 2 weeks Comments:Following colonoscopy. [facility] 07-12-2023 Note Radiology Colonoscopy, Adult [...] including vitamins, herbs, eye drops, creams, and tsdo-swt-chmmgte medicines. ? Any problems you or family [...] tells you to take them. ? Taking apii-upk-rotgtrf medicines, vitamins, herbs, and supplements. General instructions [...] for cancer cells. (more content not included)... [facility] 06-21-2023 Note [id number]:[id number] [facility] 02-18-2023 Hospital Discharge instructions Patient Education 02/18/2023 16:09:24 Endoscopy, Care After Procedure [facility] Endoscopy Care After Procedure Please read the [...] blood. Document Released: 06/29/2005 Document Re-Released: 05/09/2007 [facility] Patient Information [employer]. 02/18/2023 16:09:24 Swallowed Foreign Body, Adult, Wors-po-Bzbl Swallowed Foreign Body, Adult A swallowed foreign [...] yourself after the procedure. General instructions Take cdpr-jgd-vdigpnu and prescription medicines only as told by [...] 03/01/2012 Document Revised: 09/28/2019 Document Reviewed: 09/28/2019 [employer] Patient Education 2020 [employer]. Follow Up Care 02/18/2023 13:49:24 With:Rafael Powell Address:Unknown When:1 to 2 weeks Comments:Call for any problems. Office will call with biopsy results [facility] 02-18-2023 Evaluation + Plan note Extrac [...] Date:09/27/2023 01:45:00 PM Scheduled Provider:Davey JARA MD Location:[facility] App[facility] Future Appointments Appointment Date:06/18/2023 01:45:00 PM Scheduled Provider: Location:[facility] Appointment Type:Surgery FT Appointment Date:09/27/2023 01:45:00 PM Scheduled Provider:Davey JARA MD Location:[facility] Appointment Type:URO Office Visit [facility] Evaluation + Plan note Future Appointments Appointment Date:09/24/2023 08:15:00 AM Scheduled Provider:Davey JARA MD Location:[facility] Appointment Type:URO Office Visit [facility] Evaluation + Plan note Future Appointments Appointment Date:09/29/2024 08:00:00 AM Scheduled Provider:Davey JARA MD Location:[facility] Appointment Type:URO Office Visit Diagnostic Tests Pending * PSA Total 07/30/24 [facility] evaluation + Plan note Future Appointments Appointment Date:09/29/2024 08:00:00 AM Scheduled Provider:Davey JARA MD Location:[facility] Appointment Type:URO Office Visit [facility] Evaluation + Plan note Future Appointments Appointment Date:11/11/2023 02:00:00 PM Scheduled Provider:COLLEEN Giraldo APRN, [place] [facility] Location:[facility] Appointment Type:URO Office Visit Appointment Date:09/29/2024 08:00:00 AM Scheduled Provider:Davey JARA MD Location:[facility] Appointment Type:URO Office Visit Diagnostic Tests Pending * Urine Culture [facility]09[facility] Future Appointments Appointment Date:11/30/2023 01:15:00 PM Scheduled Provider:Davey JARA MD Location:[facility] [place] Appointment Type:URO Procedure 15 min Appointment Date:09/29/2024 08:00:00 AM Scheduled Provider:Davey JARA MD Location:[facility] Appointment Type:URO Office Visit [facility] evaluation + Plan note Future Appointments Appointment Date:09/29/2024 08:00:00 AM Scheduled Provider:Davey JARA MD Location:[facility] Appointment Type:URO Office Visit Diagnostic Tests Pending * [facility]ro[facility] Fish and Urine Cyto ([facility]) 11[facility]30/23 [facility] N[facility] No data available for this section [facility] No data available for this section [facility] Progress note No data available for this section [facility] Summary Purpose Family History No Family [...] section and content) DATE CREATED AUTHOR 05/25/2018 [facility] DATE CREATED AUTHOR AUTHOR'S ORGANIZ ATION 01/26/2021 [facility] DATE CREATED AUTHOR AUTHOR'S ORGANIZ ATION 07/12/2023 [facility] DATE CREATED AUTHOR AUTHOR'S ORGANIZ ATION 11/26/[address] [facility] EPIC DATE CREATED AUTHOR AUTHOR'S AMELIA ATION 12/08/2023 [facility] team informatio n (unrecognized section and content) Personnel Name: Thomas Lamar MD Address: Address: [address] [place] [address] Personnel Name: Thomas Lamar MD Address: Address: [address] [place], [place] [address] Personnel Name: Thomas Lamar MD Address: Address: [address] [place] [id number] Personnel Name: Thomas Lamar MD Address: Address: [address] [place] [id number] Personnel Name: Thomas Lamar MD Address: Address: [address] [place] [id number] Personnel Name: Thomas Lamar MD Address: Address: [address] [place], [place] [address] Personnel Name: Thomas Lamar MD Address: Address: [address] [place], [place] [address] Personnel Name: Thomas Lamar MD Address: Address: [address] [place], [place] [address] Personnel Name: Thomas Lamar MD Address: Address: [address] [place] [address] FOR RECORDS PERTAINING TO PATIENTS WHO ARE [...] BE BASED ON THE PRIMARY CLINICAL RECORDS. [employer] provides no warranty or guarantee of the accuracy or completeness of information in this document.
--- NOTE | 2023-12-14 07:23 | CT_ITS ---
The [address] [address] Patient Name: ASHLEY LEDESMA MRN: [id number] date: 1960 Sex: M Assigned Patient Location: LAB Current Patient Location: LAB Accession/Order Number: [id number] Exam Date: 12/14/2023 08:01 Report Date: 12/14/2023 09:02 At the request of: DAVEY JARA Procedure: CT abdomen pelvis wo/w con EXAM: CT abdomen pelvis wo/w con HISTORY: Gross Hematuria, History Bladder Cancer COMPARISON: None. TECHNIQUE: Axial CT images were obtained of the abdomen and pelvis without and with intravenous contrast. Postcontrast images were obtained in the delayed phase. Multiplanar reconstructions were performed. ABDOMEN/PELVIS FINDINGS: Lower Chest: Unremarkable. Liver: Normal enhancement and contour. Biliary/Gallbladder: Unremarkable. Pancreas: Unremarkable. Spleen: Unremarkable. Adrenal Glands: Unremarkable. Kidneys: There is a large heterogeneous mass in the anterior interpolar region of the left kidney measuring 12.8 x 12.0 x 15.0 cm. Mild hydronephrosis is present in the upper pole of the left kidney, likely due to compression from mass effect on the renal pelvis. There is hazy fat stranding present about the left kidney. There is a small cyst present in the right kidney. Gastrointestinal/Peritoneum: A moderate volume of stool was present throughout the colon. There are no dilated loops of bowel. The appendix is unremarkable. No free air or free fluid. Vascular: Unremarkable. Lymph Nodes: No enlarged lymph nodes by CT size criteria. Pelvic Organs: The prostate gland is mildly enlarged and causing mass effect on the base of bladder. Bladder: Unremarkable. Bones: No acute osseous abnormality. Mild to moderate multilevel degenerative changes are present in the visualized spine with prominent anterior enthesophytes. Soft tissues: Unremarkable. CT/CT abdomen pelvis wo/w con IMPRESSION: 1. Large mass in the interpolar region of the left kidney, concerning for a large renal cell carcinoma. 2. Mild hydronephrosis in the upper pole the left kidney due to mass effect. 3. Perinephric fat stranding present about the left kidney, which may be due to edema or reactive changes. 4. No lymphadenopathy identified. 5. Prostatomegaly. 6. Moderate stool burden. Electronically authenticated by: NERY BAILEY Date: 12/14/2023 09:02
[2023-12-14 07:36] LABS: Estimated GFR (African America >60 (>=60); Estimated GFR (Non-African Ame 54 (>=60)
== END 2023-12-14 07:11 | disposition home or self-care (01) ==
LOC: LAB 07:10
PROVIDERS: PCP Family Medicine; Visit Provider Urology
DX: R31.0 Gross hematuria (principal); Z85.51 Personal history of malignant neoplasm of bladder; N28.89 Other specified disorders of kidney and ureter; N40.1 Benign prostatic hyperplasia with lower urinary tract symptoms
CPT/HCPCS: 36415; 74178; 82565; Q9967

== ENCOUNTER 2024-03-14 13:26 | Outpatient (OUT) | payer OTHER, SELFPAY ==
--- NOTE | 2024-03-14 | XR_ITS ---
The [address] [address] Patient Name: ASHLEY LEDESMA MRN: [id number] date: 1960 Sex: M Assigned Patient Location: MRI Current Patient Location: MRI Accession/Order Number: [id number] Exam Date: 03/14/2024 14:25 Report Date: 03/14/2024 16:13 At the request of: ADAN LAMAR Procedure: XR lumbar spine 2-3V EXAMINATION: XR lumbar spine 2-3V HISTORY: M54.50 low back pain COMPARISON: No relevant comparison available. FINDINGS: BONES: Normal alignment with no acute fracture or spondylolisthesis. Moderate diffuse degenerative spondylosis and facet osteoarthropathy DISC SPACES: Normal. No significant disc height narrowing, subluxation, or endplate abnormality. PARASPINOUS: Negative. No paraspinous abnormality is seen. OTHER: Large amount of stool in the right colon XR/XR lumbar spine 2-3V IMPRESSION: Moderate degenerative changes Electronically authenticated by: ABDIEL KWON Date: 03/14/2024 16:13
--- NOTE | 2024-03-14 13:31 | MR_ITS ---
[address] [address] Patient Name: ASHLEY LEDESMA MRN: [id number] date: 1960 Sex: M Assigned Patient Location: MRI Current Patient Location: MRI Accession/Order Number: [id number] Exam Date: 03/14/2024 13:50 Report Date: 03/14/2024 16:13 At the request of: ADAN LAMAR Procedure: MR lumbar spine wo con EXAMINATION: MR lumbar spine wo con HISTORY: Low Back Pain Associated With A Spinal Disorder M54.50 COMPARISON: No relevant comparison available. TECHNIQUE: A variety of imaging planes and parameters were utilized for visualization of suspected pathology. FINDINGS: For the purposes of numbering, sagittal T2 image # 8 extends from the T11 vertebral body superiorly to the S2-S3 level inferiorly. PARASPINAL AREA: Normal with no visible mass. BONES: Normal alignment with no acute fracture, spondylolisthesis or bone edema. Moderate diffuse degenerative spondylosis CORD/CAUDA EQUINA: Normal caliber, contour, and signal intensity. DISC LEVELS: 12-L1: Early degenerative disc disease is present without focal protrusion or neural impingement. L1-L2: Disc space narrowing and disc desiccation. Broad-based disc protrusion extending up to 2.5 mm. No central or foraminal stenosis L2-L3: Disc desiccation. No disc bulge or herniation. No central or foraminal stenosis L3-L4: Moderate disc space narrowing and disc desiccation. Mild posterior disc protrusion. No central or foraminal stenosis L4-L5: Mild disc desiccation. Mild posterior broad-based disc protrusion extending up to 2 mm. No central or foraminal stenosis L5-S1: No significant disc/facet abnormality, spinal stenosis, or foraminal stenosis. MR/MR lumbar spine wo con IMPRESSION: Mild discogenic changes. No central or foraminal stenosis observed Electronically authenticated by: ABDIEL KWON Date: 03/14/2024 16:13
== END 2024-03-14 13:27 | disposition home or self-care (01) ==
LOC: MRI 13:26
PROVIDERS: PCP Family Medicine; Visit Provider Family Medicine
DX: M54.50 Low back pain, unspecified (principal); M51.36 Other intervertebral disc degeneration, lumbar region
CPT/HCPCS: 72100; 72148

== ENCOUNTER 2024-03-20 13:30 | Outpatient (RCR) | payer OTHER, SELFPAY | END 2024-05-04 11:31 | disposition home or self-care (01) | LOC: PT 13:30 | PROVIDERS: PCP Family Medicine; Visit Provider Family Medicine | DX: M54.50 Low back pain, unspecified (principal) | CPT/HCPCS: 97012; 97110; 97112; 97140; 97162 ==

== ENCOUNTER 2024-05-04 16:37 | Outpatient (RCR) | payer OTHER, MEDICARE, SELFPAY | END 2024-05-26 14:01 | disposition home or self-care (01) | LOC: PT 16:37 | PROVIDERS: PCP Family Medicine; Visit Provider Family Medicine | DX: M54.50 Low back pain, unspecified (principal) | CPT/HCPCS: 97012; 97110; 97140 ==

== ENCOUNTER 2024-06-27 13:48 | Outpatient (OUT) | payer OTHER, MEDICARE, SELFPAY ==
[2024-06-27 15:38] LABS: Prostate Specific Antigen Dx 4.27 ng/mL (<=4.00)
== END 2024-06-27 13:49 | disposition home or self-care (01) ==
LOC: LAB 13:50
PROVIDERS: PCP Family Medicine; Visit Provider Urology
DX: R97.20 Elevated prostate specific antigen [PSA] (principal)
CPT/HCPCS: 36415; 84153

== ENCOUNTER 2024-06-30 08:44 | Outpatient (OUT) | payer OTHER, MEDICARE, SELFPAY ==
--- NOTE | 2024-06-30 | XR_ITS ---
The [address] [address] Patient Name: ASHLEY LEDESMA MRN: [id number] date: 1960 Sex: M Assigned Patient Location: Current Patient Location: Accession/Order Number: [id number] Exam Date: 06/30/2024 08:49 Report Date: 07/01/2024 04:26 At the request of: JACIEL DESAI Procedure: XR lumbar spine 2-3V EXAMINATION: XR lumbar spine 2-3V HISTORY: LUMBAR SPINE PAIN COMPARISON: XR lumbar spine 03/14/2024 FINDINGS: BONES: Mild anterior wedging of T12 and L1 with prominent anterior endplate osteophytes. Mild grade 1 retrolisthesis of L1 on L2; no change in alignment during flexion and extension. Mild degenerative facet arthropathy L4-L5, L5-S1. DISC SPACES: Mild narrowing L3-L4, L4-L5. PARASPINOUS: Negative. No paraspinous abnormality is seen. OTHER: Negative. XR/XR lumbar spine 2-3V IMPRESSION: 1. Grossly stable moderate degenerative changes of lumbar spine. Electronically authenticated by: BOGDAN VAZQUEZ Date: 07/01/2024 04:26
--- OUTSIDE RECORDS SUMMARY | 2024-06-30 08:52 | XMS_ITS | CCD ---
Author Organization [facility] Care Team Providers Care Fancy Sewer Name Role Phone ARIEYAHIRMARYLIN Unavailable Unavailable ARIE, MARYLIN Unavailable Unavailable ARIE, MARYLIN Unavailable Unavailable ADAN LAMAR Unavailable Unavailable ADAN LAMAR Primary Care Unavailable DAVEY JARA Admitting Unavailable DAVEY JARA Consulting Unavailable DAVEY JARA Attending Unavailable ADAN LAMAR Consulting Unavailable ADAN LAMAR Attending Unavailable ADAN LAMAR Admitting Unavailable DANICA MUNROE Admitting Unavailable DANICA MUNROE Consulting Unavailable DANICA MUNROE Attending Unavailable Adan Lamar Primary Care Physician ADAN LAMAR Primary Care Unavailable AMRIK MUNROE Attending Unavailable Adan Lamar MD Primary Care Provider [phone] Adan Lamar MD Primary Care Provider Unavailable Primary Care Provider UnavailAdan Lomeli MD Primary Care Provider ADAN LAMAR Primary Care Unavailable WARMNEGRO, JADA Referring Unavailable ADAN LAMAR Primary Care Unavailable WARMNEGRO, JADA Referring Unavailable Davey JARA Attending Unavailable Davey JARA R Attending Unavailable Davey JARA R Attending Unavailable Davey JARA R Attending Unavailable SALAMDanny Referring Unavailable SALAM, Danny Attending Unavailable SALAM, Delgado Admitting Unavailable Orzech, Jerica X Attending Unavailable Orzech, Jerica X Admitting Unavailable ROSALINDA CHAPMAN Attending Unavailable ROSALINDA CHAPMAN Admitting Unavailable Davey JARA Attending Unavailable Davey JARA R Admitting Unavailable Garima Eastman Attending Unavailable Davey JARA R Attending Unavailable Orzech, Jerica X Attending Unavailable ADAN LAMAR Primary Care Unavailable ADAN LAMAR Primary Care Unavailable JONNY ARNETT Referring Unavailab le HOY, ADAN M Primary Care Unavailable HOY, ADAN M Primary Care Unavailable JONNY ARNETT Referring Unavailab CHARLOTTE Swift Referring Unavailable CHARLOTTE LINDSEY Attending Unavailable HOY, ADAN M Primary Care Unavailable SOBEIDA, JADA Referring Unavailable GADEGBEKU, CRYSTAL Sera Attending Unavailable HOY, ADAN M Primary Care Unavailable GADEGBEKU, CRYSTAL A Referring Unavailable HOY, ADAN M Primary Care Unavailable WARMINSKIJADA Attending Unavailable HOY, ADAN M Primary Care Unavailable GADEGBEKU, CRYSTAL A Attending Unavailable HOY, ADAN M Primary Care Unavailable CHARLOTTE LINDSEY Attending Unavailable HOY, ADAN M Primary Care Unavailable JONNY ARNETT Referring Unavailab le GADEGBEKU, CRYSTAL A Referring Unavailable HOY, ADAN M Primary Care Unavailable HOY, ADAN M Primary Care Unavailable CHARLOTTE LINDSEY Referring Unavailable HOY, ADAN M Primary Care Unavailable JONNY ARNETT Referring Unavailab le BRIANDA, ADAN M Primary Care Unavailable CHARLOTTE LINDSEY Attending Unavailable CHARLOTTE LINDSEY Admitting Unavailable Allergies Allergy Classification Reported Allergen(s) Allergy Type Date of Onset Reaction(s) Facility (2 sources) Ciprofloxacin; Translations: [ciprofloxacin] Drug Allergy Unknown [facility] Medications Current Medications Medication Drug Class(es) Dates Sig (Normalized) Sig (Original) aspirin 81 mg oral tablet (9 sources) Platelet Aggregation Inhibitor, Nonsteroidal Anti-inflammatory Drug Start: 08-07-2019 take 1 tablet by mouth once daily aspirin 81 mg oral tablet 81 mg = 1 tab(s), Oral, Daily Start Date: 08/07/19 Status: Ordered docusate sodium 100 mg oral capsule (2 sources) Start: 01-07-2024 End: 01-22-2024 take 1 capsule by mouth twice daily docusate sodium (COLACE) 100 mg capsule Take 1 capsule by mouth two times a day for 15 days. 30 capsule 0 01/07/2024 01/22/2024 Active Comment on above: Take [address] [facility] two times a day for 15 days. iv contrast (will be provided with radiology test) (3 sources) Start: 04-26-2024 End: 04-27-2024 iv contrast (will be provided with radiology test) Indications: History of renal cell cancer MRI ABDOMEN Inject, intravenously, once for 1 dose. No IV access, insert saline lock prior to the beginning of sedation, infusion, injection of imaging exam. Discontinue saline lock post exam. If Pt. has a central line or IVAD, may access for administration according to line specific nursing protocol. Once exam is complete flush line and de-access according to line specific nursing protocol in the MR contrast administration guidelines link. 1 Each 0 04/26/2024 04/27/2024 Active Start: 01-25-2024 End: 01-26-2024 iv contrast (will be provide d with radiology test) Indications: Renal cell carcinoma of left kidney (HCC) MRI ABDOMEN Inject, intravenously, once for 1 dose. No IV access, insert saline lock prior to the beginning of sedation, infusion, injection of imaging exam. Discontinue saline lock post exam. If Pt. has a central line or IVAD, may access for administration according to line specific nursing protocol. Once exam is complete flush line and de-access according to line specific nursing protocol in the MR contrast administration guidelines link. 1 Each 0 01/25/2024 01/26/2024 Active Start: 12-21-2023 End: 12-22-2023 iv contrast (will be provide d with radiology test) MRI Kidney Inject, intravenously, once for 1 dose. No IV access, insert saline lock prior to the beginning of sedation, infusion, injection of imaging exam. Discontinue saline lock post exam. If Pt. has a central line or IVAD, may access for administration according to line specific nursing protocol. Once exam is complete flush line and de-access according to line specific nursing protocol in the MR contrast administration guidelines link. 1 Each 0 12/21/2023 12/22/2023 Comment on above: MRI ABDOMEN Inject, intravenously, once for 1 dose. No IV access, insert saline lock prior to the beginning of sedation, infusion, injection of imaging exam. Discontinue saline lock post exam. If Pt. has a central line or IVAD, may access for administration according to line specific nursing protocol. Once exam is complete flush line and de-access according to line specific nursing protocol in the MR contrast administration guidelines link. MRI Kidney Inject, i ntravenously, once for 1 dose. No IV access, insert saline lock prior to the beginning of sedation, infusion, injection of imaging exam. Discontinue saline lock post exam. If Pt. has a central line or IVAD, may access for administration according to line specific nursing protocol. Once exam is complete flush line and de-access according to line specific nursing protocol in the MR contrast administration guidelines link. lisinopril 5 mg oral tablet (5 sources) Angiotensin Converting Enzyme Inhibitor Start: take 1 tablet by mouth once daily lisinopril (ZESTRIL) 5 mg tablet Take 1 tablet by mouth once daily. 30 tablet 3 04/11/2024 Active 24 hr mirabegron 50 mg extended release oral tablet (2 sources) beta3-Adrenergic Agonist Start: take 1 tablet by mouth once daily Myrbetriq 50 mg oral tablet, extended release 50 mg = 1 tab(s), Oral, Daily, # 90 tab(s), Refills(s) 3, [facility], cm, 02/18/23 13:55:00 EDT, Height/Length Dosing, 86.5, kg, 02/18/23 13:55:00 EDT, Weight Dosing Start Date: 04/27/23 Status: Ordered Multivitamin preparation (6 sources) Start: multivitamin Refill(s) 0 Start Date: 09/24/23 Status: Ordered omeprazole 40 mg delayed release oral capsule (2 sources) Proton Pump Inhibitor Start: take 1 capsule by mouth once daily omeprazole 40 mg Cap-DR 40 mg = 1 cap(s), Oral, Daily, # 30 cap(s), Refills(s) 2, Pharmacy: [facility]/pharmacy #[id number], 178, cm, 05/05/23 8:17:00 EDT, Height/Length Dosing, 87, kg, 05/05/23 8:17:00 EDT, Weight Dosing Start Date: 05/05/23 Status: Ordered oxyCODONE hydrochloride 5 mg oral tablet (1 source) Opioid Agonist Start: End: take 1 tablet by mouth every six hours as needed for pain oxyCODONE IR (ROXICODONE) 5 mg immediate release tablet Indications: Renal mass Take 1 tablet by mouth every 6 hours as needed for pain for up to 5 days. Take oxycodone only if pain not controlled with tylenol medication. Alternate the drug with other pain medications. 15 tablet 0 01/07/2024 01/12/2024 Active Comment on above: Take 1 tablet by prabhjot th every 6 hours as needed for pain for up to 5 days. Take oxycodone only if pain not controlled with tylenol medication. Alternate the drug with other pain medications. polyethylene glycol 3350 062540 mg / potassium chloride 1480 mg / sodium bicarbonate 5720 mg / sodium chloride 83096 mg powder for oral solution (2 sources) Osmotic Laxative Start: 023 take 2 doses by mouth every other day NuLYTELY Jama oral powder for reconstitution See Instructions, 2 EA, Refill(s) 0, 2 day colon prep., [facility]/pharmacy #[id number], 178, cm, 07/12/23 14:08:00 EDT, Height/Length Dosing, 87.5, kg, 07/12/23 14:08:00 EDT, Weight Dosing Start Date: 07/12/23 Status: Ordered Start: 05-05-2023 NuLYTELY Cherr y oral powder for reconstitution See Instructions, 1 EA, Refill(s) 0, See physician instructions prior to procedure., [facility]/pharmacy #[id number], 178, cm, 05/05/23 8:17:00 EDT, Height/Length Dosing, 87, kg, 05/05/23 8:17:00 EDT, Weight Dosing Start Date: 05/05/23 Status: Ordered sildenafil 100 mg oral tablet (15 sources) Phosphodiesterase 5 Inhibitor Start: 09-24-2023 End: 01-30-2024 take 1 tablet by mouth every hour sildenafil (VIAGRA) 100 mg tablet take 1 tablet by mouth as directed 1 HOUR PRIOR TO SEXUAL ACTIVITY 0 09/24/2023 01/30/2024 Discontinued Start: 09-22-2021 sildenafil 100 mg Tab 100 mg = 1 tab(s), Oral, As Directed, 1 hour before sexual activity, # 30 tab(s), Refills(s) 2, Pharmacy: [id number], 177, cm, 09/22/21 14:37:00 EDT, Height/Length Dosing, 87, kg, 09/22/21 14:37:00 EDT, Weight Dosing Start Date: 09/22/21 Status: Ordered Comment on above: take 1 tablet by prabhjot th as directed 1 HOUR PRIOR TO SEXUAL ACTIVITY tamsulosin hydrochloride 0.4 mg oral capsule (16 sources) alpha-Adrenergic Radames Start: 4 take 1 capsule by mouth once daily at bedtime tamsulosin (FLOMAX) 0.4 mg Take 1 capsule by mouth daily at bedtime. 30 capsule 11 12/21/2023 Active Start: 11-16-2023 End: 12-16-2023 take 1 capsule by mouth once daily tamsulosin 0.4 mg Cap 0.4 mg = 1 cap(s), Oral, Daily, X 30 day(s), # 30 cap(s), Refills(s) 0, Pharmacy: [facility]/pharmacy #[id number], 177, cm, 11/11/23 8:06:00 EST, Height/Length Dosing, 86.5, kg, 11/11/23 8:06:00 EST, Weight Dosing Start Date: 11/16/23 Stop Date: 12/16/23 Status: Ordered Comment on above: Take 1 capsule by mo sdh daily at bedtime. terbinafine 250 mg oral tablet (3 sources) Allylamine Antifungal Start: 3 terbinafine 250 mg Tab Refills(s) 0 Start Date: 11/11/23 Status: Ordered vibegron (GEMTESA) 75 mg tablet (13 sources) Start: 3 vibegron (GEMTESA) 75 mg tablet Take by mouth. 0 11/23/2023 Active Comment on above: Take by mouth. vibegron 75 MG Oral Tablet [Gemtesa] (9 sources) Start: 3 End: 4 take 1 tablet by mouth once daily Gemtesa 75 mg oral tablet 75 mg = 1 tab(s), Oral, Daily, X 90 day(s), # 90 tab(s), Refills(s) 3, Pharmacy: [facility], 178, cm, 07/12/23 14:08:00 EDT, Height/Length Dosing, 87.5, kg, 07/12/23 14:08:00 EDT, Weight Dosing Start Date: 09/09/23 Stop Date: 09/03/24 Status: Ordered Start: 04-28-2023 End: 04-22-2024 take 1 tablet by mouth once daily Gemtesa 75 mg oral tablet 75 mg = 1 tab(s), Oral, Daily, X 90 day(s), # 90 tab(s), Refills(s) 3, [id number], cm, 02/18/23 13:55:00 EDT, Height/Length Dosing, 86.5, kg, 02/18/23 13:55:00 EDT, Weight Dosing Start Date: 04/28/23 Stop Date: 04/22/24 Status: Ordered Start: 08-31-2022 End: 08-26-2023 take 1 tablet by mouth once daily Gemtesa 75 mg oral tablet 75 mg = 1 tab(s), Oral, Daily, X 90 day(s), # 90 tab(s), Refills(s) 3, Pharmacy: [facility], 177, cm, 09/22/21 14:37:00 EDT, Height/Length Dosing, 87, kg, 09/22/21 14:37:00 EDT, Weight Dosing Start Date: 08/31/22 Stop Date: 08/26/23 Status: Ordered Completed/Discontinued Medications Medication Drug Class(es) Dates Sig (Normalized) Sig (Original) allopurinol 100 mg oral tablet (20 sources) Xanthine Oxidase Inhibitor Start: 09-28-2022 take 1 tablet by mouth once daily allopurinol 100 mg Tab 30 EA, TAKE 1 TABLET BY MOUTH EVERY DAY, Refills(s) 0 Start Date: 09/28/22 Status: Ordered take 1 tablet by mouth once maria g y allopurinol (ZYLOPRIM) 300 mg tablet 1 tablet Orally Once a day for 90 days 0 Active Comment on above: 1 tablet Orally Once a day for 90 days cephalexin 500 mg oral capsule (2 sources) Cephalosporin Antibacterial Start: 09-28-20 take 1 capsule by mouth once daily Keflex 500 mg Cap 500 mg = 1 cap(s), Oral, Daily, Take 1 tab day before procedure and 1 after procedure, # 2 cap(s), Refills(s) 0, Pharmacy: [facility]/pharmacy #[id number], 177, cm, 09/28/22 14:37:00 EDT, Height/Length Dosing, 87, kg, 09/28/22 14:37:00 EDT, Weight Dosing Start Date: 09/28/22 Status: Ordered ciprofloxacin 500 mg oral tablet (3 sources) Quinolone Antimicrobial Start: 11-26-20 Cipro 500 mg Tab 500 mg = 1 tab(s), Oral, As Directed, Take 1 pill the day before procedure, then 1 pill after the procedure., # 2 tab(s), Refills(s) 0, Pharmacy: [facility] #[id number], 177, cm, 11/11/23 8:06:00 EST, Height/Length Dosing, 86.5, kg, 11/11/23 8:06:00 EST, Weight Dosing Start Date: 11/26/23 Status: Ordered Methocarbamol (3 sources) Muscle Relaxant Start: 01-07-20 24 End: 01-25-20 24 take 1 tablet by mouth every eight hours as needed methocarbamol 1,000 mg tablet Take 1 tablet (1,000 mg) by mouth three times a day as needed. 15 tablet 0 01/07/2024 01/25/2024 Discontinued (Course of therapy completed) Start: 01-07-2024 take 1 tablet by prabhjot th every eight hours as needed methocarbamol 1,000 mg tablet Take 1 tablet (1,000 mg) by mouth three times a day as needed. 15 tablet 0 01/07/2024 Active Comment on above: Take 1 tablet (1,000 mg) by mouth three times a day as needed. tiZANidine 4 mg oral tablet (6 sources) Central alpha-2 Adrenergic Agonist Start: 3 End: 4 take 2 tablets by mouth at bedtime tiZANidine (ZANAFLEX) 4 mg tablet 2 tablets Orally at bedtime for 15 0 07/05/2023 01/25/2024 Discontinued (Course of therapy completed) Comment on above: 2 tablets Orally at bedtime for 15 Problems Active Problems Problem Classification Problem Date Documented Da te Episodic/Chronic Allergic reactions (9 sources) Eczema 07-12-2019 Episodic Anxiety disorders (9 sources) Panic attack 07-12-2019 Chronic Cancer of kidney and renal pelvis (7 sources) Renal cell carcinoma; Translations: [Malignant neoplasm of left kidney, except renal pelvis] Onset: 4 01-25-2024 Chronic Cancer of kidney and renal pelvis (4 sources) History of malignant neoplasm of retroperitoneum; Translations: [Personal history of other malignant neoplasm of kidney] Onset: 4 04-26-2024 Episodic Cancer; other and unspecified primary (9 sources) History of bladder neoplasm 01-27-2021 Episodic Chronic kidney disease (5 sources) Chronic kidney disease stage 3B ; Translations: [Stage 3b chronic kidney disease (HCC)] 01-25-2024 Chronic Chronic kidney disease (2 sources) Chronic kidney disease; Translations: [Stage 3a chronic kidney disease (HCC)] Onset: 4 Diabetes mellitus with complications (9 sources) Erectile dysfunction due to type 2 diabetes mellitus 01-27-2021 Chronic Esophageal disorders (20 sources) Ulcer of esophagus; Translations: [Ulcer of esophagus without bleeding] Onset: 3 Chronic Gout and other crystal arthropathies (20 sources) Gout; Translations: [Gout, unspecified] Onset: 4 07-12-2019 Chronic Hemorrhoids (9 sources) Hemorrhoids 07-12-2019 Episodic Hyperplasia of prostate (20 sources) Benign prostatic hypertrophy with outflow obstruction; Translations: [Benign prostatic hyperplasia with lower urinary tract symptoms] Onset: 3 11-19-2020 Chronic Other aftercare (1 source) Long-term current use of anticoagulant; Translations: [senior care (current) use of anticoagulants] Onset: 3 Episodic Other aftercare (1 source) Encounter for follow-up examination after completed treatment for malignant neoplasm; Translations: [Encounter for follow-up surveillance of kidney cancer] Onset: 4 Episodic Other diseases of bladder and urethra (9 sources) Urethral stricture 07-12-2019 Episodic Other diseases of kidney and ureters (13 sources) Renal mass; Translations: [Other specified disorders of kidney and ureter] Onset: 4 01-06-2024 Chronic Other diseases of kidney and ureters (1 source) Disorder of kidney and/or ureter; Translations: [Other specified disorders of kidney and ureter] 12-21-2023 Chronic Other diseases of kidney and ureters (2 sources) Other specified disorders of kidney and ureter; Translations: [Renal mass] Onset: 4 Chronic Other diseases of kidney and ureters (1 source) Urinary tract obstruction; Translations: [Other obstructive and reflux uropathy] Onset: 3 Episodic Other diseases of kidney and ureters (2 sources) Acquired renal cystic disease; Translations: [Cyst of kidney, acquired] 01-05-2024 Episodic Other endocrine disorders (4 sources) Testicular hypofunction; Translations: [TESTICULAR HYPOFUNCTION] Onset: 1 Chronic Other gastrointestinal disorders (1 source) H/O: gastrointestinal disease; Translations: [Personal history of other diseases of the digestive system] Onset: 3 Episodic Other injuries and conditions due to external causes (1 source) Foreign body in digestive tract; Translations: [Foreign body of alimentary tract, part unspecified, initial encounter] Onset: 3 Episodic Other male genital disorders (16 sources) Male erectile dysfunction, unspecified; Translations: [Erectile dysfunction] Onset: 3 Chronic Other nutritional; endocrine; and metabolic disorders (9 sources) Body mass index 25-29 - overweight 11-19-2020 Episodic Pancreatic disorders (not diabetes) (2 sources) Cyst of pancreas; Translations: [Cyst of pancreas] Onset: 4 04-26-2024 Episodic Residual codes; unclassified (20 sources) Sleep apnea; Translations: [Sleep apnea, unspecified] Onset: 4 07-12-2019 Chronic Residual codes; unclassified (9 sources) Reduced libido 01-27-2021 Episodic Residual codes; unclassified (5 sources) History of nephrectomy; Translations: [Acquired absence of kidney] 01-25-2024 Episodic Residual codes; unclassified (1 source) Acquired absence of kidney; Translations: [H/O left nephrectomy] Onset: 4 Episodic Retinal detachments; defects; vascular occlusion; and retinopathy (9 sources) 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 Unclassified (2 sources) Unknown / UNK(Unknown) Onset: 7 Unclassified (9 sources) Drug therapy finding 10-31-2019 Unclassified (8 sources) Patient encounter status 05-05-2023 Past or Other Problems Problem Classification Problem Date Documented Da te Episodic/Chronic Cancer of bladder (3 sources) History of malignant neoplasm of bladder; Translations: [Personal history of malignant neoplasm of bladder] Onset: 09-24-2023 Episodic Fracture of lower limb (4 sources) Displaced fracture of distal phalanx of right great toe, subsequent encounter for fracture with routine healing; Translations: [DISP FX OF DIST PHALANX OF R GREAT TOE, 7THD] Onset: 08-19-2017 Episodic Genitourinary symptoms and ill-defined conditions (19 sources) Urgent desire to urinate; Translations: [Jace hematuria] Onset: 11-24-2023 07-12-2019 Episodic Immunizations and screening for infectious disease (8 sources) Contact with and (suspected) exposure to other viral communicable diseases; Translations: [Encounter for screening for other viral diseases] Onset: 08-09-2020 Episodic Other diseases of kidney and ureters (1 source) Other obstructive and reflux uropathy; Translations: [Benign prostatic hyperplasia with urinary obstruction] Onset: 01-04-2024 Episodic Other diseases of kidney and ureters (1 source) Cyst of kidney, acquired; Translations: [Acquired cyst of kidney] Onset: 01-05-2024 Episodic Other gastrointestinal disorders (19 sources) History of esophageal ulcer; Translations: [Personal history of other diseases of the digestive system] Onset: 01-06-2024 07-12-2023 Episodic Other screening for suspected conditions (not mental disorders or infectious disease) (16 sources) Raised prostate specific antigen; Translations: [Screening for malignant neoplasm of colon done] Onset: 05-05-2023 10-31-2019 Episodic Results Test Name Value Interpretation Reference Range Facility Renal function 2000 panelon 06-16-2024 Albumin [Mass/Vol] 4.7 g/dL Normal 3.9-4.9 [facility] Comment on above: Order Comment: Speci men Type: BLOOD SPECIMENOrdering Facility: [facility] Address: [address] [place] [address] Performed By: #### 2 4362-6 ####[facility] LABCLIA [id number] [place] [address] Anion gap [Moles/Vol] 8 mmol/L Normal 8-15 [facility] Comment on above: Order Comment: Speci men Type: BLOOD SPECIMENOrdering Facility: [facility] Address: [address] [place] [address] Performed By: #### 2 4362-6 ####[facility] LABCLIA [id number] [place] [address] Calcium [Mass/Vol] 10.5 mg/dL High 8.5-10.2 [facility] Comment on above: Order Comment: Speci men Type: BLOOD SPECIMENOrdering Facility: [facility] Address: [address] [place] [address] Performed By: #### 2 4362-6 ####[facility] LABCLIA [id number] [place] [address] Chloride [Moles/Vol] 105 mmol/L Normal 98-107 [facility] Comment on above: Order Comment: Speci men Type: BLOOD SPECIMENOrdering Facility: [facility] Address: [address] [place] [address] Performed By: #### 2 4362-6 ####[facility] LABCLIA [id number] [place] [address] CO2 [Moles/Vol] 29 mmol/L Normal 22-30 [facility] Comment on above: Order Comment: Speci men Type: BLOOD SPECIMENOrdering Facility: [facility] Address: [address] [place] [address] Performed By: #### 2 4362-6 ####[facility] LABCLIA [id number] [place] [address] Creatinine [Mass/Vol] 1.79 mg/dL High 0.73-1.22 [facility] Comment on above: Order Comment: Speci men Type: BLOOD SPECIMENOrdering Facility: [facility] Address: [address] [place] [address] Performed By: #### 2 4362-6 ####[facility] LABCLIA [id number] [place] [address] Creatinine and Glomerular filtration rate.predicted panel (S/P/Bld) 42 mL/min/1.73m??? Low >=60 [facility] Comment on above: Order Comment: Speci men Type: BLOOD SPECIMENOrdering Facility: [facility] Address: [address] [place] [address] Result Comment: Alexandra mated Glomerular Filtration Rate (eGFR) is calculated using the 2020 CKD-EPI creatinine equation. This equation utilizes serum creatinine, sex, and age as parameters. The creatinine assay has traceable calibration to isotope dilution-mass spectrometry. Refer to KDIGO guidelines for clinical interpretation. In patients with unstable renal function, e.g. those with acute kidney injury, the eGFR may not accurately reflect actual GFR. Performed By: #### 2 4362-6 ####[facility] LABCLIA [id number] [place] [address] Glucose [Mass/Vol] 102 mg/dL High 74-99 [facility] Comment on above: Order Comment: Tianna yuan Type: BLOOD SPECIMENOrdering Facility: [facility] Address: [address] [place] [address] Result Comment: The [place] [employer] (ADA) provides guidance for cutoff values for fasting glucose and random glucose. The ADA defines fasting as no caloric intake for at least 8 hours. Fasting plasma glucose results between 100 to 125 mg/dL indicate increased risk for diabetes (prediabetes). Fasting plasma glucose results greater than or equal to 126 mg/dL meet the criteria for diagnosis of diabetes. In the absence of unequivocal hyperglycemia, results should be confirmed by repeat testing. In a patient with classic symptoms of hyperglycemia or hyperglycemic crisis, random plasma glucose results greater than or equal to 200 mg/dL meet the criteria for diagnosis of diabetes. Reference: Standards of Medical Care in Diabetes 2016, [place] [employer]. Diabetes Care. 2016.39(Suppl 1). Performed By: #### 2 4362-6 ####[facility] LABCLIA [id number] [place] [address] Phosphate [Mass/Vol] 3.1 mg/dL Normal 2.7-4.8 [facility] Comment on above: Order Comment: Tianna yuan Type: BLOOD SPECIMENOrdering Facility: [facility] Address: [address] [id number] Performed By: #### 2 4362-6 ####[facility] LABCLIA [id number] [place] [address] Potassium [Moles/Vol] 4.7 mmol/L Normal 3.7-5.1 [facility] Comment on above: Order Comment: Speci men Type: BLOOD SPECIMENOrdering Facility: [facility] Address: [address] [place], [place] [address] Performed By: #### 2 4362-6 ####[facility] LABCLIA [id number] [place] [address] Sodium [Moles/Vol] 142 mmol/L Normal 136-144 [facility] Comment on above: Order Comment: Speci men Type: BLOOD SPECIMENOrdering Facility: [facility] Address: [address] [place] [address] Performed By: #### 2 4362-6 ####[facility] LABCLIA [id number] [place] [address] Urea nitrogen [Mass/Vol] 29 mg/dL High 9-24 [facility] Comment on above: Order Comment: Speci men Type: BLOOD SPECIMENOrdering Facility: [facility] Address: [address] [place], [place] [address] Performed By: #### 2 4362-6 ####[facility] LABCLIA [id number] [place] [address] Provider Letteron 06-13-2024 Provider Letter Provider Letter June 13, 2024 ASHLEY LEEDSMA [address] [place] [address] : 1960 Dear Ashley, We are reaching out to speak with you about scheduling your 1 year repeat colonoscopy for May of 2024. We are now scheduling for June or later with Dr. Bullock. Please contact our office at [phone] if you would like to proceed with scheduling. Sincerely, [facility] Schedulers Normal [facility] Reminderson 06-13-2024 Reminders Reminders From: Debora Medina To: [facility] - Reminders/Recalls; Sent: 07/12/2023 14:25:46 EDT Show up: 07/30/2023 14:25:00 EDT Subject: Ambulatory Reminder Reminder/Recall Call and schedule when Medical [facility] approves Dr. Bullock. From: Bo Garduno ([facility] - Reminders/Recalls) To: Suzie Wheeler; Sent: 09/07/2023 [...] put this on the reminder for 04/20. letter sent Normal [facility] Reminders Reminders From: Suzie Wheeler To: [facility] - Reminders/Recalls; Sent: 09/08/2023 08:58:16 EDT Show up: 04/17/2024 08:57:00 EDT Subject: Ambulatory Reminder Reminder/Recall Please call patient to schedule colonoscopy he wanted to wait till closer to the year dylon than doing it sooner. Patient had last one on 06/18/23. Noted in chart to do Nulytely with 2 day prep. From: Donna Troncoso ([facility] - Reminders/Recalls) To: Debora Medina; Sent: 04/20/2024 13:22:04 EDT ! Show up: 04/20/2024 13:21:00 EDT letter sent Normal [facility] CNOVon 06-07-2024 CNOV Office Visit (CATA ) ASHLEY LEDESMA ([id number]) 1960 M Date Time Provider Department 06/07/24 11:40 AM JAYNE SILVEIRA During your visit today, we recorded the following information about you: Pulse Blood pressure Weight Height 74/minute 165/87 84.5 kg 1.778 m Jayne Silveira MD 06/13/2024 8:40 PM Signed Department of Kidney Medicine [facility] SERVICE DATE: 06/07/2024 SERVICE TIME: 11:55 AM CHIEF COMPLAINT: solitary kidney HPI: Mr. Ledesma is a 64 year old male who presents with AVANI, esophageal ulcer, BPH, s/p left nephrectomy for RCC with baseline pre-nephx creatinine 1.3 and symmetrical renal function with evidence of stable CKD stage 3a confirmed by cystatin C measurement after renal mass reduction (eGFRcr 47 and eGFRcys 57, combined 54). This is better than predicted by baseline creatinine. BP 108 - 133/70 - 80s with home BP. Off lisinopril 5 mg since May 16 with BP 109- 120s/80s. Was taking at night. SOCIAL HISTORY: Social History Tobacco Use Smoking status: Former Types: Cigarettes Passive exposure: Never Smokeless tobacco: Never Tobacco comments: Been over 30 years since had a cigarette Substance Use Topics Alcohol use: Yes Comment: may have a drink 2x per week Drug use: Never MEDICATIONS: lisinopril (ZESTRIL) 5 mg tablet Take 1 tablet by mouth once daily. vibegron (GEMTESA) 75 mg tablet Take by mouth. allopurinol (ZYLOPRIM) 300 mg tablet 1 tablet Orally Once a day for 90 days tamsulosin (FLOMAX) 0.4 mg Take 1 capsule by mouth daily at bedtime. ALLERGIES: ALLERGIES No Known Allergies ROS: no F/C/N/V/D/SOB/CP, no hematuria, no dysuria, no frothy. PHYSICAL EXAM: BP 165/87 (BP Site: Right Arm, BP Position: Sitting, BP Cuff Size: Regular Adult) Pulse 74 Ht 177.8 cm (5' 10 ) Wt 84.5 kg (186 lb 4.6 oz) BMI 26.73 kg/m? BP - standardized method Pulse 1 BP #1: 172/90 Pulse #1: 73 beats/min 2 BP #2 : 159/87 Pulse #2 : 76 beats/min 3 BP #3 : 165/85 Pulse #3 : 75 beats/min Average Average BP: 165/87 Average Pulse: 74 beats/min Orthostatic vitals Supine Sitting Standing Standing BP : 155/78 Standing pulse : 77 BP cuff location BP cuff location: Right upper arm BP cuff size BP cuff size: regular adult Comments for BP values First BP (right) First BP (left) Constitutional: No acute distress, Responsive, Normal habitus, and Well-nourished Eyes: Conjunctiva clear, Noscleral icterus, and PERRL Ear, Nose, and Throat: Hearing normal, Lips normal, and Dentition normal Neck:Trachea midline No jugular venous distension Thyroid exam normal Cardiovascular:Regular rate and rhythm, normal S1 and S2, no murmurs, rubs, or gallops No peripheral edema Respiratory: Normal respiratory effort. Lungs clear bilaterally. Normal to palpation bilaterally. Normal to percussion bilaterally. Abdomen:Soft, non-tender, non-distended. Normal bowel sounds. No hepatosplenomegaly. Musculoskeletal: No clubbing or cyanosis of digits., Normocephalic., and No muscle weakness, joint tenderness, or joint effusions. Psychiatric: Alert and oriented x self, place, time, and setting Normal mood/affect DATA: Diagnostic tests reviewed for today's visit: Blood work, imaging studies, and office notes were reviewed in [facility] Latest Reference Range AND Units 06/07/24 13:04 Sodium 136 - 144 mmol/L 143 Potassium 3.7 - 5.1 mmol/L 4.4 Chloride 98 - 107 mmol/L 104 CO2 22 - 30 mmol/L 27 BUN 9 - 24 mg/dL 25 (H) Creatinine 0.73 - 1.22 mg/dL 1.53 (H) Glucose 74 - 99 mg/dL 94 Calcium 8.5 - 10.2 mg/dL 10.2 Phosphorus 2.7 - 4.8 mg/dL 2.9 Albumin 3.9 - 4.9 g/dL 4.6 Anion Gap 8 - 15 mmol/L 12 eGFR >=60 mL/min/1.73m? 50 (L) Cystatin C 0.61 - 0.95 mg/L 1.23 (H) Cystatin C eGFR >=60 mL/min/1.73m? 58 (L) (H): Data is abnormally high (L): Data is abnormally low Latest Reference Range AND Units 06/07/24 10:46 Creatinine, Ur Random (UCRR) 20.0 - 300.0 mg/dL 36.7 Protein, Urine Random 0 - 20 mg/dL <4 Color Yellow Yellow Clarity Clear Clear Specific [place], Ur 1.005 - 1.030 1.008 pH, Urine <8.5 6.5 Protein, Urine Negative Negative Glucose, Urine Negative Negative Ketones, Urine Negative Negative Bilirubin, Urine Negative Negative Hemoglobin/Blood,Ur Negative Negative Urobilinogen 0.2-1.0 EU/dL 0.2 EU/dL Leukest Negative Trace ! Nitrites Negative Negative Protein/Creat Ratio <0.15 mg/mg <0.11 !: Data is abnormal ASSESSMENT: 64 year old male who presents with AVANI, esophageal ulcer, BPH, s/p left nephrectomy for RCC with baseline pre-nephx creatinine 1.3 and symmetrical renal function with evidence of stable CKD stage 3a confirmed by cystatin C measurement after renal mass reduction that remains stable (stage G3aA1) with normal protein excretion. He may have WCH as BP here appear uncontrolled (more content not included)... Normal [facility] CYSTATIN Con 06-07-2024 Cystatin C [Mass/Vol] 1.23 mg/L High 0.61 - 0.95 mg/L [facility] Cystatin C eGFR 58 Low - PINF [facility] Comment on above: Estimated Glomerular Filtration Rate (eGFR) is calculated using the 2012 CKD-EPI cystatin C equation. This equation utilizes serum cystatin C, sex, and age as parameters. The cystatin C assay has traceable calibration to the ERM-DA471/IF reference material. Refer to KDIGO guidelines for clinical interpretation. In patients with unstable renal function, e.g. those with acute kidney injury, the eGFR may not accurately reflect actual GFR. Cystatin C [Mass/Vol] 1.23 mg/L High 0.61-0.95 [facility] Comment on above: Order Comment: Speci men Type: BLOOD SPECIMENOrdering Facility: [facility] Address: [address] [place] [address] Performed By: #### C [facility], 898[address]-6 ####[facility] LABCLIA [id number] [place] [address] [place] CYSTATIN C EGFR 58 mL/min/1.73m??? Low >=60 C [facility] Comment on above: Order Comment: Speci men Type: BLOOD SPECIMENOrdering Facility: [facility] Address: [address] [place] [address] Result Comment: Alexandra mated Glomerular Filtration Rate (eGFR) is calculated using the 2012 CKD-EPI cystatin C equation. This equation utilizes serum cystatin C, sex, and age as parameters. The cystatin C assay has traceable calibration to the [facility]-DA471/[facility] reference material. Refer to KDIGO guidelines for clinical interpretation. In patients with unstable renal function, e.g. those with acute kidney injury, the eGFR may not accurately reflect actual GFR. Performed By: #### C [facility], 17322-7 ####[facility] LABCLIA [id number] [address] [place] Laboratory - Chemistry and C hemistry - challengeon 06-07-2024 Protein/Creatinine (U) [Mass ratio] mg/mg NINF - 0.15 mg/mg [facility] Comment on above: Adult Proteinuria Ca tegories: <0.15 mg/mg is considered normal to mildly increased 0.15 - 0.50 mg/mg is considered moderately increased >0.50 mg/mg is considered severely increased KDIGO. (2013). KDIGO 2012 Clinical Practice Guideline for the Evaluation and Management of Chronic Kidney Disease. Official Journal of the International Society of Nephrology, 3(1), 1-150. No Panel Informationon 06-07 Interpretation and review of laboratory results Abnormal [facility] Prot/Creat Uron 06-07-2024 Protein/Creatinine (U) [Mass ratio] mg/g Normal <0.15 [facility] Comment on above: Order Comment: Speci men Type: URINE SPECIMENOrdering Facility: [facility] Address: [address] [place] [address] Result Comment: Adul t Proteinuria Categories: <0.15 mg/mg is considered normal to mildly increased 0.15 - 0.50 mg/mg is considered moderately increased >0.50 mg/mg is considered severely increased KDIGO. (2013). KDIGO 2012 Clinical Practice Guideline for the Evaluation and Management of Chronic Kidney Disease. Official Journal of the International Society of Nephrology, 3(1), 1-150. Performed By: #### L [id number], 2890-2 ####[facility] LABCLIA [id number] [address] [place] [id number] [place] Protein/Creatinine (U) [Mass ratio]on 06-07-2024 Creatinine (U) [Mass/Vol] 36.7 mg/dL 20.0 - 300.0 mg/dL [facility] Interpretation and review of laboratory results Normal [facility] Protein (U) [Mass/Vol] mg/dL 0 - 20 mg/dL [facility] Creatinine (U) [Mass/Vol] 36.7 mg/dL Normal 20.0-300.0 [facility] Comment on above: Order Comment: Speci men Type: URINE SPECIMENOrdering Facility: [facility] Address: [address] [place] [address] Performed By: #### Vamsi [id number], 2890-2 ####[facility] LABCLIA [id number] [place] [address] [place] Protein (U) [Mass/Vol] mg/dL Normal 0-20 [facility] Comment on above: Order Comment: Speci men Type: URINE SPECIMENOrdering Facility: [facility] Address: [address] [place] [address] Performed By: #### L [id number], 2890-2 ####[facility] LABCLIA [id number] [address] [id number] [place] Renal function 2000 panelon 06-07-2024 Albumin [Mass/Vol] 4.6 g/dL 3.9 - 4.9 g/dL [facility] Anion gap [Moles/Vol] 12 mmol/L 8 - 15 mmol/L [facility] Calcium [Mass/Vol] 10.2 mg/dL 8.5 - 10. 2 mg/dL [facility] Chloride [Moles/Vol] 104 mmol/L 98 - 107 mmol/L [facility] CO2 [Moles/Vol] 27 mmol/L 22 - 30 mmol/L [facility] Creatinine [Mass/Vol] 1.53 mg/dL High 0.73 - 1.22 mg/dL [facility] GFR/1.73 sq M.predicted among non-blacks MDRD (S/P/Bld) [Vol rate/Area] 50 mL/min/{1.73_m2} Low - PINF [facility] Comment on above: Estimated Glomerular Filtration Rate (eGFR) is calculated using the 2020 CKD-EPI creatinine equation. This equation utilizes serum creatinine, sex, and age as parameters. The creatinine assay has traceable calibration to isotope dilution-mass spectrometry. Refer to KDIGO guidelines for clinical interpretation. In patients with unstable renal function, e.g. those with acute kidney injury, the eGFR may not accurately reflect actual GFR. Glucose [Mass/Vol] 94 mg/dL 74 - 99 mg/dL [facility] Comment on above: The [place] Diabete s Association (ADA) provides guidance for cutoff values for fasting glucose and random glucose. The ADA defines fasting as no caloric intake for at least 8 hours. Fasting plasma glucose results between 100 to 125 mg/dL indicate increased risk for diabetes (prediabetes). Fasting plasma glucose results greater than or equal to 126 mg/dL meet the criteria for diagnosis of diabetes. In the absence of unequivocal hyperglycemia, results should be confirmed by repeat testing. In a patient with classic symptoms of hyperglycemia or hyperglycemic crisis, random plasma glucose results greater than or equal to 200 mg/dL meet the criteria for diagnosis of diabetes. Reference: Standards of Medical Care in Diabetes 2016, [place] [employer]. Diabetes Care. 2016.39(Suppl 1). Phosphate [Mass/Vol] 2.9 mg/dL 2.7 - 4.8 mg/dL [facility] Potassium [Moles/Vol] 4.4 mmol/L 3.7 - 5.1 mmol/L [facility] Sodium [Moles/Vol] 143 mmol/L 136 - 144 mmol/L [facility] Urea nitrogen [Mass/Vol] 25 mg/dL High 9 - 24 mg/dL [facility] Albumin [Mass/Vol] 4.6 g/dL Normal 3.9-4.9 [facility] Comment on above: Order Comment: Speci men Type: BLOOD SPECIMENOrdering Facility: [facility] Address: [address] [place] [address] Performed By: #### Darius CARR, 92940-8 ####[facility] LABCLIA [id number] [place] [address] [place] Anion gap [Moles/Vol] 12 mmol/L Normal 8-15 [facility] Comment on above: Order Comment: Speci men Type: BLOOD SPECIMENOrdering Facility: [facility] Address: [address] [place] [address] Performed By: #### Darius CARR, 41375-5 ####[facility] LABCLIA [id number] [place] [address] [place] Calcium [Mass/Vol] 10.2 mg/dL Normal 8.5-10.2 [facility] Comment on above: Order Comment: Speci men Type: BLOOD SPECIMENOrdering Facility: [facility] Address: [address] [place] [address] Performed By: #### Darius CARR, 86587-3 ####[facility] LABCLIA [id number] [place] [address] [place] Chloride [Moles/Vol] 104 mmol/L Normal 98-107 [facility] Comment on above: Order Comment: Speci men Type: BLOOD SPECIMENOrdering Facility: [facility] Address: [address] [place] [address] Performed By: #### Darius CARR, 81238-7 ####[facility] LABCLIA [id number] [place] [address] [place] CO2 [Moles/Vol] 27 mmol/L Normal 22-30 [facility] Comment on above: Order Comment: Speci men Type: BLOOD SPECIMENOrdering Facility: [facility] Address: [address] [place] [address] Performed By: #### Darius CARR, 90240-3 ####[facility] LABCLIA [id number] [place] [address] [place] Creatinine [Mass/Vol] 1.53 mg/dL High 0.73-1.22 [facility] Comment on above: Order Comment: Tianna yuan Type: BLOOD SPECIMENOrdering Facility: [facility] Address: [address] [place] [address] Performed By: #### C [facility], 99364-0 ####[facility] LABIA [id number] [address] Creatinine and Glomerular filtration rate.predicted panel (S/P/Bld) 50 mL/min/1.73m??? Low >=60 [facility] Comment on above: Order Comment: Tianna yuan Type: BLOOD SPECIMENOrdering Facility: [facility] Address: [address] [place] [address] Result Comment: Alexandra mated Glomerular Filtration Rate (eGFR) is calculated using the 2020 CKD-EPI creatinine equation. This equation utilizes serum creatinine, sex, and age as parameters. The creatinine assay has traceable calibration to isotope dilution-mass spectrometry. Refer to KDIGO guidelines for clinical interpretation. In patients with unstable renal function, e.g. those with acute kidney injury, the eGFR may not accurately reflect actual GFR. Performed By: #### C [facility], 27402-8 ####[facility] LABCLIA [id number] [place] [address] [place] Glucose [Mass/Vol] 94 mg/dL Normal 74-99 [facility] Comment on above: Order Comment: Tianna yuan Type: BLOOD SPECIMENOrdering Facility: [facility] Address: [address] [place] [address] Result Comment: The [place] Diabetes Association (ADA) provides guidance for cutoff values for fasting glucose and random glucose. The ADA defines fasting as no caloric intake for at least 8 hours. Fasting plasma glucose results between 100 to 125 mg/dL indicate increased risk for diabetes (prediabetes). Fasting plasma glucose results greater than or equal to 126 mg/dL meet the criteria for diagnosis of diabetes. In the absence of unequivocal hyperglycemia, results should be confirmed by repeat testing. In a patient with classic symptoms of hyperglycemia or hyperglycemic crisis, random plasma glucose results greater than or equal to 200 mg/dL meet the criteria for diagnosis of diabetes. Reference: Standards of Medical Care in Diabetes 2016, [place] Diabetes [employer]. Diabetes Care. 2016.39(Suppl 1). Performed By: #### Darius CARR, 60987-3 ####[facility] LABCLIA [id number] [place] [address] [place] Phosphate [Mass/Vol] 2.9 mg/dL Normal 2.7-4.8 [facility] Comment on above: Order Comment: Speci men Type: BLOOD SPECIMENOrdering Facility: [facility] Address: [address] [place] [address] Performed By: #### Darius CARR, 41291-3 ####[facility] LABCLIA [id number] [place] [address] [place] Potassium [Moles/Vol] 4.4 mmol/L Normal 3.7-5.1 [facility] Comment on above: Order Comment: Speci men Type: BLOOD SPECIMENOrdering Facility: [facility] Address: [address] [place] [address] Performed By: #### Darius CARR, 99443-6 ####[facility] LABCLIA [id number] [place] [address] [place] Sodium [Moles/Vol] 143 mmol/L Normal 136-144 [facility] Comment on above: Order Comment: Speci men Type: BLOOD SPECIMENOrdering Facility: [facility] Address: [address] [place] [address] Performed By: #### Darius CARR, 12194-3 ####[facility] LABCLIA [id number] [place] [address] [place] Urea nitrogen [Mass/Vol] 25 mg/dL High 9-24 [facility] Comment on above: Order Comment: Speci men Type: BLOOD SPECIMENOrdering Facility: [facility] Address: [address] [place] [address] Performed By: #### C YSTC, 31107-4 ####[facility] LABIA [id number] [place] [address] [place] URINALYSIS, REFLEX MICROSCOP ICon 06-07-2024 Bilirubin Ql (U) Negative Negative [facility] Clarity (Unsp spec) Clear Clear [facility] Color (U) Yellow Yellow [facility] Glucose Test strip (U) [Mass/Vol] Negative Negative [facility] Hemoglobin Ql (U) Negative Negative [facility] Interpretation and review of laboratory results Abnormal [facility] Ketones Ql (U) Negative Negative [facility] Leukocyte esterase Test strip Ql (U) Trace Abnormal Negative [facility] Nitrite Ql (U) Negative Negative [facility] pH (U) 6.5 [pH] NINF - 8.5 [facility] Protein (U) [Mass/Vol] Negative Negative [facility] Specific gravity (U) [Rel density] 1.008 1.005 - 1.030 [facility] Urobilinogen Ql (U) 0.2 EU/dL 0.2-1.0 EU/dL [facility] This test was develo ped and its performance characteristics determined by [facility]'s [facility] ([facility]). It has not been cleared or approved by the FDA. [facility] is regulated under CLIA as qualified to perform high-complexity testing. This test is used for clinical purposes. It should not be regarded as investigational or for research. [facility] Bilirubin Ql (U) Negative Normal Negative [facility] Comment on above: Order Comment: Speci men Type: URINE SPECIMENOrdering Facility: [facility] Address: [address] [place] [address] Performed By: #### L [id number], 2890-2 ####[facility] LABIA [id number] [place] [address] [place] Clarity (Unsp spec) Clear Normal Clear [facility] Comment on above: Order Comment: Speci men Type: URINE SPECIMENOrdering Facility: [facility] Address: [address] [id number] Performed By: #### L [id number], 2889-2 ####[facility] LABCLIA [id number] [place] [address] [place] Color (U) Yellow Normal Yellow [facility] Comment on above: Order Comment: Speci men Type: URINE SPECIMENOrdering Facility: [facility] Address: [address] [place] [address] Performed By: #### L [id number], 2889-2 ####[facility] LABCLIA [id number] [place] [address] [place] Glucose Test strip (U) [Mass/Vol] Negative Normal Negative [facility] Comment on above: Order Comment: Speci men Type: URINE SPECIMENOrdering Facility: [facility] Address: [address] [place] [address] Performed By: #### L [id number], 2889-2 ####[facility] LABCLIA [id number] [place] [address] [place] Hemoglobin Ql (U) Negative Normal Negative [facility] Comment on above: Order Comment: Speci men Type: URINE SPECIMENOrdering Facility: [facility] Address: [address] [place] [address] Performed By: #### L [id number], 2889-2 ####[facility] LABCLIA [id number] [place] [address] [place] Ketones Ql (U) Negative Normal Negative [facility] Comment on above: Order Comment: Speci men Type: URINE SPECIMENOrdering Facility: [facility] Address: [address] [place] [address] Performed By: #### L [id number], 2889-2 ####[facility] LABCLIA [id number] [place] [id number] [place] Leukocyte esterase Test strip Ql (U) Trace Abnormal Negative [facility] Comment on above: Order Comment: Speci men Type: URINE SPECIMENOrdering Facility: [facility] Address: [address] [place] [address] Performed By: #### L [id number], 2889-2 ####[facility] LABCLIA [id number] [place] [address] [place] Nitrite Ql (U) Negative Normal Negative [facility] Comment on above: Order Comment: Speci men Type: URINE SPECIMENOrdering Facility: [facility] Address: [address] [place] [address] Performed By: #### L [id number], 2889-2 ####[facility] LABCLIA [id number] [place] [address] [place] pH (U) 6.5 [pH] Normal <8.5 [facility] Comment on above: Order Comment: Speci men Type: URINE SPECIMENOrdering Facility: [facility] Address: [address] [place] [address] Performed By: #### L [id number], 2889-2 ####[facility] LABCLIA [id number] [place] [address] [place] Protein (U) [Mass/Vol] Negative Normal Negative [facility] Comment on above: Order Comment: Speci men Type: URINE SPECIMENOrdering Facility: [facility] Address: [address] [place] [address] Performed By: #### L [id number], 2889-2 ####[facility] LABCLIA [id number] [place] [address] [place] Specific gravity (U) [Rel density] 1.008 Normal 1.005-1.030 [facility] Comment on above: Order Comment: Speci men Type: URINE SPECIMENOrdering Facility: [facility] Address: [address] [place] [address] Performed By: #### L [id number], 2889-2 ####[facility] LABCLIA [id number] [place] [id number] [place] Urobilinogen Ql (U) 0.2 EU/dL Normal 0.2-1.0 EU/dL [facility] Comment on above: Order Comment: Speci men Type: URINE SPECIMENOrdering Facility: [facility] Address: [address] [place] [address] Performed By: #### L [id number], 2890-2 ####[facility] LABCLIA [id number] [place] [address] [place] ALLIED HEALTHon 04-25-2024 ALLIED HEALTH HNO ID: [id number] Author: CHUNG CONTRERAS MRI Tech Service: Radiology Author Type: Puncher Type: Allied Health Filed: 04/25/2024 08:40 Note Text: Radiology Service Progress Note DATE OF SERVICE: April 25, 2024 TIME: 8:39 AM PATIENT IDENTITY VERIFICATION COMPLETED USING TWO (2) STANDARD IDENTIFIERS: Name and Date of confirmed by patient verbally and Name and Date of confirmed by identification band. FALL SCREENING: Has the patient had 2 falls in the last year or 1 fall with injury or currently using an Ambulatory Assistive Device (Walker, Cane, Wheelchair, Crutches, etc.)? No PATIENT GENDER DATA: Male PATIENT RELEVANT IMPLANT DATA REVIEWED: Yes PATIENT PRESENTS WITH AN IMPLANTABLE OR ATTACHED WATER POLLUTION CONTROL TECHNICIAN: No ALLERGIES: Reviewed and unchanged CONTRAST ALLERGY: NO. EXAM: MRI - CONTRAST TYPE: GROUP II PERIPHERAL IV DATA: Ambulatory: A peripheral IV was started in the Right antecubital site with a Angio cath: 24 gauge. RADIOLOGY DEPARTMENT: MR; Exam(s) Completed: Body: Renal SIGNATURE: Chung Rider, cpas PATIENT NAME: Ashley Ledesma DATE: April 25, 2024 TIME: 8:39 AM [facility] CT CHEST WO IVCONon 04-25-20 CT CHEST WO IVCON * * *Final Report* * * DATE OF EXAM: Apr 25 2024 8:00AM [facility] 0541 - CT CHEST WO IVCON / PROCEDURE REASON: Renal cell carcinoma of left kidney (HCC) * * * * Physician Interpretation * * * * EXAMINATION: CHEST CT WITHOUT CONTRAST CLINICAL HISTORY: Technique: Spiral CT acquisition of the chest from the thoracic inlet to the upper abdomen without contrast. MQ: CTCWO_6 CT Radiation dose: Integrated Dose-length product (DLP) for this visit = 462 mGy*cm CT Dose Reduction Employed: Automated exposure control(AEC) and iterative recon Comparison: Chest CT scan(s) dated RESULT: Limitations: None. Lines, tubes, and devices: None Lung parenchyma, pleural space and airways: Lungs are clear of focal consolidation. There are stable scattered small calcified and noncalcified pulmonary nodules. For reference, 3 mm subpleural nodule in the RIGHT upper lobe (image 60) and 2 mm nodule in the periphery of the RIGHT lower lobe (image 186). No new or enlarging pulmonary nodules are noted. There are streaky linear bands of atelectasis/scarring in both lungs. Minimal biapical scarring is present. There is no pleural effusion. The trachea and central airways appear patent, devoid of endobronchial lesion. Lower neck, lymph nodes, and mediastinum: No obvious abnormality in the imaged thyroid gland. There is no axillary, mediastinal or hilar lymphadenopathy. Heart, pericardium, and thoracic vessels: The cardiac chambers are normal in size. There is trace pericardial effusion. The main pulmonary artery is normal in calibre. There is mild ectasia of the thoracic aorta measuring up to 4.2 cm in the mid-ascending segment. The arch branching pattern is normal. Mild LAD coronary artery calcifications are noted, although the study is not optimized for coronary assessment. Bones and soft tissues: Chest wall soft tissues are unremarkable. Endplate degenerative changes are present in the thoracic spine. Upper abdomen: There is stable subcentimeter sized low-attenuation lesion in the posterior RIGHT hepatic lobe (image 231). There is stable RIGHT renal cyst. Postoperative changes of interval LEFT nephrectomy are noted with no soft tissue in the operative bed. There is stable 2 cm cystic lesion arising exophytically from the body of the pancreas. [employer] Laborer (topogram) images: No additional findings. IMPRESSION: 1. Stable scattered small pulmonary nodules measuring up to 4 mm. Recommend follow-up as warranted by patient's history of renal cell carcinoma. 2. No thoracic lymphadenopathy. Glassblower: SHASHI Transcribe Date/Time: Apr 25 2024 9:22A Dictated by : ANDRÉS HOOKS MD This examination was interpreted and the report reviewed and electronically signed by: ANDRÉS HOOKS MD on Apr 25 2024 9:30AM EST [id number] Normal [facility] CT Chest WO contraston 04-25 IMPRESSION: 1. Stable scattered small pulmonary nodules measuring up to 4 mm. Recommend follow-up as warranted by patient's history of renal cell carcinoma. 2. No thoracic lymphadenopathy. Glassblower: PSCLa Transcribe Date/Time: Apr 25 2024 9:22A Dictated by : ANDRÉS HOOKS MD This examination was interpreted and the report reviewed and electronically signed by: ANDRÉS HOOKS MD on Apr 25 2024 9:30AM EST [facility] * * *Final Report* * * DATE OF EXAM: Apr 25 2024 8:00AM [facility] 0541 - CT CHEST WO IVCON / PROCEDURE REASON: Renal cell carcinoma of left kidney (HCC) * * * * Physician Interpretation * * * * EXAMINATION: CHEST CT WITHOUT CONTRAST CLINICAL HISTORY: Technique: Spiral CT acquisition of the chest from the thoracic inlet to the upper abdomen without contrast. MQ: CTCWO_6 CT Radiation dose: Integrated Dose-length product (DLP) for this visit = 462 mGy*cm CT Dose Reduction Employed: Automated exposure control(AEC) and iterative recon Comparison: Chest CT scan(s) dated RESULT: Limitations: None. Lines, tubes, and devices: None Lung parenchyma, pleural space and airways: Lungs are clear of focal consolidation. There are stable scattered small calcified and noncalcified pulmonary nodules. For reference, 3 mm subpleural nodule in the RIGHT upper lobe (image 60) and 2 mm nodule in the periphery of the RIGHT lower lobe (image 186). No new or enlarging pulmonary nodules are noted. There are streaky linear bands of atelectasis/scarring in both lungs. Minimal biapical scarring is present. There is no pleural effusion. The trachea and central airways appear patent, devoid of endobronchial lesion. Lower neck, lymph nodes, and mediastinum: No obvious abnormality in the imaged thyroid gland. There is no axillary, mediastinal or hilar lymphadenopathy. Heart, pericardium, and thoracic vessels: The cardiac chambers are normal in size. There is trace pericardial effusion. The main pulmonary artery is normal in calibre. There is mild ectasia of the thoracic aorta measuring up to 4.2 cm in the mid-ascending segment. The arch branching pattern is normal. Mild LAD coronary artery calcifications are noted, although the study is not optimized for coronary assessment. Bones and soft tissues: Chest wall soft tissues are unremarkable. Endplate degenerative changes are present in the thoracic spine. Upper abdomen: There is stable subcentimeter sized low-attenuation lesion in the posterior RIGHT hepatic lobe (image 231). There is stable RIGHT renal cyst. Postoperative changes of interval LEFT nephrectomy are noted with no soft tissue in the operative bed. There is stable 2 cm cystic lesion arising exophytically from the body of the pancreas. [employer] Laborer (topogram) images: No additional findings. [facility] Provider, [facility] - 04/25/2024 * * *Final Report* * * DATE OF EXAM: Apr 25 2024 8:00AM [facility] 0541 - CT CHEST WO IVCON / PROCEDURE REASON: Renal cell carcinoma of left kidney (HCC) * * * * Physician Interpretation * * * * EXAMINATION: CHEST CT WITHOUT CONTRAST CLINICAL HISTORY: Technique: Spiral CT acquisition of the chest from the thoracic inlet to the upper abdomen without contrast. MQ: CTCWO_6 CT Radiation dose: Integrated Dose-length product (DLP) for this visit = 462 mGy*cm CT Dose Reduction Employed: Automated exposure control(AEC) and iterative recon Comparison: Chest CT scan(s) dated RESULT: Limitations: None. Lines, tubes, and devices: None Lung parenchyma, pleural space and airways: Lungs are clear of focal consolidation. There are stable scattered small calcified and noncalcified pulmonary nodules. For reference, 3 mm subpleural nodule in the RIGHT upper lobe (image 60) and 2 mm nodule in the periphery of the RIGHT lower lobe (image 186). No new or enlarging pulmonary nodules are noted. There are streaky linear bands of atelectasis/scarring in both lungs. Minimal biapical scarring is present. There is no pleural effusion. The trachea and central airways appear patent, devoid of endobronchial lesion. Lower neck, lymph nodes, and mediastinum: No obvious abnormality in the imaged thyroid gland. There is no axillary, mediastinal or hilar lymphadenopathy. Heart, pericardium, and thoracic vessels: The cardiac chambers are normal in size. There is trace pericardial effusion. The main pulmonary artery is normal in calibre. There is mild ectasia of the thoracic aorta measuring up to 4.2 cm in the mid-ascending segment. The arch branching pattern is normal. Mild LAD coronary artery calcifications are noted, although the study is not optimized for coronary assessment. Bones and soft tissues: Chest wall soft tissues are unremarkable. Endplate degenerative changes are present in the thoracic spine. Upper abdomen: There is stable subcentimeter sized low-attenuation lesion in the posterior RIGHT hepatic lobe (image 231). There is stable RIGHT renal cyst. Postoperative changes of interval LEFT nephrectomy are noted with no soft tissue in the operative bed. There is stable 2 cm cystic lesion arising exophytically from the body of the pancreas. [employer] Laborer (topogram) images: No additional findings. IMPRESSION IMPRESSION: 1. Stable scattered small pulmonary nodules measuring up to 4 mm. Recommend follow-up as warranted by patient's history of renal cell carcinoma. 2. No thoracic lymphadenopathy. Glassblower: [facility] Transcribe Date/Time: Apr 25 2024 9:22A Dictated by : ANDRÉS HOOKS MD This examination was interpreted and the report reviewed and electronically signed by: ANDRÉS HOOKS MD on Apr 25 2024 9:30AM [facility] Radiology Study observation (narrative) [facility] CT Chest WO contrastOrdered By: [facility] Provider on 04-25-2024 [facility] MR Abdomen WO and W contrast Karen 04-25-2024 IMPRESSION: Status post LEFT nephrectomy with expected postoperative changes. No definite residual/recurrent disease or abdominal metastasis. 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 COMPARISON: MRI kidney to 05/18/2024. CT abdomen pelvis 12/14/2023. TECHNIQUE: A renal MRI was performed on a 1.5 T system utilizing the torso phased-array coil. Pulse sequences included: axial precontrast T1 weighted in- and [id number], axial and coronal HASTE, axial DWI with creation of ADC map; axial and coronal T1-VIBE before and after the administration of intravenous gadolinium chelate. Multiple post processing techniques were performed. Contrast: IV administration of 17 ml of Dotarem RESULT: Kidneys, adrenals and ureters: Right kidney: Benign parapelvic and interpolar cysts measuring up to 2.1 cm (3:22), unchanged (Bosniak 1). No solid mass. Right renal vasculature - Arterial: single. No early branch (< 1cm). - Venous: single. Right ureter: Single ureter. No hydronephrosis. Right adrenal: Normal, no nodules or thickening Left kidney: Left nephrectomy with fat stranding and fat necrosis in the left nephrectomy bed. No nodular enhancement or evidence of recurrence. Left renal vasculature - Arterial: Surgically absent. - Venous: Conventional anterior to the aorta renal vein stump. Left ureter: Surgically absent Left adrenal: Normal, no nodules or thickening Retroperitoneal lymphadenopathy and IV involvement: None. Abdomen: RESULT: Liver: Normal morphology. No hepatic steatosis. 1.0 cm right lobe cyst (2:8), unchanged. Biliary: No bile duct dilation. Gallbladder is normal. Spleen: No mass. No splenomegaly. Pancreas: Normal pancreatic duct. Multiple pancreatic cystic lesions are overall unchanged from 01/04/2024, for example: * Pancreatic tail cyst measures 1.8 x 1.8 cm (2:29), previously 1.8 x 1.9 cm. * Multiseptated pancreatic neck cyst measures 1.5 x 0.9 cm, previously 1.6 x 0.9 cm (2:23) * Septated pancreatic head cyst measures 1.0 x 0.7 cm (2:24), previously measuring 1.2 x 0.9 cm. GI tract: No dilation or wall thickening. Lymph nodes (other): No abdominal or pelvic lymphadenopathy. Mesentery/Peritoneum: No ascites or mass. Retroperitoneum: No mass. Vasculature: The celiac axis and SMA are patent. The portal vein and branches, splenic vein, SMV, and hepatic veins are patent. No abdominal aortic aneurysm. Bones/Soft Tissues: No significant finding. Lower chest: Unremarkable. Localizer images: No additional findings. 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 COMPARISON: MRI kidney to 05/18/2024. CT abdomen pelvis 12/14/2023. TECHNIQUE: A renal MRI was performed on a 1.5 T system utilizing the torso phased-array coil. Pulse sequences included: axial precontrast T1 weighted in- and [id number], axial and coronal HASTE, axial DWI with creation of ADC map; axial and coronal T1-VIBE before and after the administration of intravenous gadolinium chelate. Multiple post processing techniques were performed. Contrast: IV administration of 17 ml of Dotarem RESULT: Kidneys, adrenals and ureters: Right kidney: Benign parapelvic and interpolar cysts measuring up to 2.1 cm (3:22), unchanged (Bosniak 1). No solid mass. Right renal vasculature - Arterial: single. No early branch (< 1cm). - Venous: single. Right ureter: Single ureter. No hydronephrosis. Right adrenal: Normal, no nodules or thickening Left kidney: Left nephrectomy with fat stranding and fat necrosis in the left nephrectomy bed. No nodular enhancement or evidence of recurrence. Left renal vasculature - Arterial: Surgically absent. - Venous: Conventional anterior to the aorta renal vein stump. Left ureter: Surgically absent Left adrenal: Normal, no nodules or thickening Retroperitoneal lymphadenopathy and IV involvement: None. Abdomen: RESULT: Liver: Normal morphology. No hepatic steatosis. 1.0 cm right lobe cyst (2:8), unchanged. Biliary: No bile duct dilation. Gallbladder is normal. Spleen: No mass. No splenomegaly. Pancreas: Normal pancreatic duct. Multiple pancreatic cystic lesions are overall unchanged from 01/04/2024, for example: * Pancreatic tail cyst measures 1.8 x 1.8 cm (2:29), previously 1.8 x 1.9 cm. * Multiseptated pancreatic neck cyst measures 1.5 x 0.9 cm, previously 1.6 x 0.9 cm (2:23) * Septated pancreatic head cyst measures 1.0 x 0.7 cm (2:24), previously measuring 1.2 x 0.9 cm. GI tract: No dilation or wall thickening. Lymph nodes (other): No abdominal or pelvic lymphadenopathy. Mesentery/Peritoneum: No ascites or mass. Retroperitoneum: No mass. Vasculature: The celiac axis and SMA are patent. The portal vein and branches, splenic vein, SMV, and hepatic veins are patent. No abdominal aortic aneurysm. Bones/Soft Tissues: No significant finding. Lower chest: Unremarkable. Localizer images: No additional findings. IMPRESSION IMPRESSION: Status post LEFT nephrectomy with expected postoperative changes. No definite residual/recurrent disease or abdominal metastasis. 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 Glassblower: [facility] Transcribe Date/Time: Apr 25 2024 1:16P Dictated by : RENATA NICOLE MD This examination was interpreted and the report reviewed and electronically signed by: MARIA ELENA MALLOY MD on Apr 25 2024 3:47PM EST [facility] Radiology Study observation (narrative) [facility] MR Abdomen WO and W contrast IVOrdered By: [facility] Provider on 04-25-2024 [facility] MRI ABDOMEN WO/W IVCONon MRI ABDOMEN WO/W IVCON * * *Final Report* * * DATE OF EXAM: Apr 25 2024 12:18PM [facility] 0689 - MRI ABDOMEN WO/W IVCON / PROCEDURE REASON: Renal cell carcinoma of left kidney (HCC) * * * * Physician Interpretation * * * * MRI ABDOMEN WITHOUT AND WITH IV CONTRAST CLINICAL HISTORY: 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 COMPARISON: MRI kidney to 05/18/2024. CT abdomen pelvis 12/14/2023. TECHNIQUE: A renal MRI was performed on a 1.5 T system utilizing the torso phased-array coil. Pulse sequences included: axial precontrast T1 weighted in- and [id number], axial and coronal HASTE, axial DWI with creation of ADC map; axial and coronal T1-VIBE before and after the administration of intravenous gadolinium chelate. Multiple post processing techniques were performed. Contrast: IV administration of 17 ml of Dotarem RESULT: Kidneys, adrenals and ureters: Right kidney: Benign parapelvic and interpolar cysts measuring up to 2.1 cm (3:22), unchanged (Bosniak 1). No solid mass. Right renal vasculature - Arterial: single. No early branch (< 1cm). - Venous: single. Right ureter: Single ureter. No hydronephrosis. Right adrenal: Normal, no nodules or thickening Left kidney: Left nephrectomy with fat stranding and fat necrosis in the left nephrectomy bed. No nodular enhancement or evidence of recurrence. Left renal vasculature - Arterial: Surgically absent. - Venous: Conventional anterior to the aorta renal vein stump. Left ureter: Surgically absent Left adrenal: Normal, no nodules or thickening Retroperitoneal lymphadenopathy and IV involvement: None. Abdomen: RESULT: Liver: Normal morphology. No hepatic steatosis. 1.0 cm right lobe cyst (2:8), unchanged. Biliary: No bile duct dilation. Gallbladder is normal. Spleen: No mass. No splenomegaly. Pancreas: Normal pancreatic duct. Multiple pancreatic cystic lesions are overall unchanged from 01/04/2024, for example: * Pancreatic tail cyst measures 1.8 x 1.8 cm (2:29), previously 1.8 x 1.9 cm. * Multiseptated pancreatic neck cyst measures 1.5 x 0.9 cm, previously 1.6 x 0.9 cm (2:23) * Septated pancreatic head cyst measures 1.0 x 0.7 cm (2:24), previously measuring 1.2 x 0.9 cm. GI tract: No dilation or wall thickening. Lymph nodes (other): No abdominal or pelvic lymphadenopathy. Mesentery/Peritoneum: No ascites or mass. Retroperitoneum: No mass. Vasculature: The celiac axis and SMA are patent. The portal vein and branches, splenic vein, SMV, and hepatic veins are patent. No abdominal aortic aneurysm. Bones/Soft Tissues: No significant finding. Lower chest: Unremarkable. Localizer images: No additional findings. IMPRESSION: Status post LEFT nephrectomy with expected postoperative changes. No definite residual/recurrent disease or abdominal metastasis. 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 Glassblower: SHASHI Transcribe Date/Time: Apr 25 2024 1:16P Dictated by : RENATA NICOLE MD This examination was interpreted and the report reviewed and electronically signed by: MARIA ELENA MALLOY MD on Apr 25 2024 3:47PM EST [id number] Normal [facility] CBC panel Auto (Bld)on 03-24 Erythrocyte distribution width (RBC) [Ratio] 15.2 % High 11.5 - 15.0 % [facility] Hematocrit (Bld) [Volume fraction] 39.8 % 39.0 - 51.0 % [facility] Hemoglobin (Bld) [Mass/Vol] 12.6 g/dL Low 13.0 - 17.0 g/dL [facility] Interpretation and review of laboratory results Abnormal [facility] MCH (RBC) [Entitic mass] 28.2 pg 26.0 - 34.0 pg [facility] MCHC (RBC) [Mass/Vol] 31.7 g/dL 30.5 - 36.0 g/dL [facility] MCV (RBC) [Entitic vol] 89.0 fL 80.0 - 100.0 fL [facility] Nucleated RBC (Bld) [#/Vol] NINF [facility] Platelet mean volume (Bld) [Entitic vol] 13.6 fL High 9.0 - 12.7 fL [facility] Platelets (Bld) [#/Vol] 148 10*3/uL Low [facility] Comment on above: Results checked and verified.No clot detected. RBC (Bld) [#/Vol] 4.47 10*6/uL 4.20 - 6.0 0 m/uL [facility] WBC (Bld) [#/Vol] 5.53 10*3/uL [facility] Erythrocyte distribution width (RBC) [Ratio] 15.2 % High 11.5-15.0 [facility] Comment on above: Order Comment: Speci men Type: BLOOD SPECIMENOrdering Facility: [facility] Address: [address] [place] [address] Performed By: #### 5 8410-2 ####[facility] LABCLIA [id number] [place] [address] [place] Hematocrit (Bld) [Volume fraction] 39.8 % Normal 39.0-51.0 [facility] Comment on above: Order Comment: Speci men Type: BLOOD SPECIMENOrdering Facility: [facility] Address: [address] [place] [address] Performed By: #### 5 8410-2 ####[facility] LABIA [id number] [place] [address] [place] Hemoglobin (Bld) [Mass/Vol] 12.6 g/dL Low 13.0-17.0 [facility] Comment on above: Order Comment: Speci men Type: BLOOD SPECIMENOrdering Facility: [facility] Address: [address] [place] [address] Performed By: #### 5 8410-2 ####[facility] [id number] [place] [address] [place] MCH (RBC) [Entitic mass] 28.2 pg Normal 26.0-34.0 [facility] Comment on above: Order Comment: Speci men Type: BLOOD SPECIMENOrdering Facility: [facility] Address: [address] [place] [address] Performed By: #### 5 8410-2 ####[facility] [id number] [place] [address] [place] MCHC (RBC) [Mass/Vol] 31.7 g/dL Normal 30.5-36.0 [facility] Comment on above: Order Comment: Speci men Type: BLOOD SPECIMENOrdering Facility: [facility] Address: [address] [place] [address] Performed By: #### 5 8410-2 ####[facility] [id number] [place] [address] [place] MCV (RBC) [Entitic vol] 89.0 fL Normal 80.0-100.0 [facility] Comment on above: Order Comment: Speci men Type: BLOOD SPECIMENOrdering Facility: [facility] Address: [address] [place] [address] Performed By: #### 5 8410-2 ####[facility] LABCLIA [id number] [place] [address] [place] Nucleated RBC (Bld) [#/Vol] 10*3/uL Normal <0.01 [facility] Comment on above: Order Comment: Speci men Type: BLOOD SPECIMENOrdering Facility: [facility] Address: [address] [place] [address] Performed By: #### 5 8410-2 ####[facility] LABIA [id number] [place] [address] [place] Platelet mean volume (Bld) [Entitic vol] 13.6 fL High 9.0-12.7 [facility] Comment on above: Order Comment: Speci men Type: BLOOD SPECIMENOrdering Facility: [facility] Address: [address] [place] [address] Performed By: #### 5 8410-2 ####[facility] LABIA [id number] [place] [address] [place] Platelets (Bld) [#/Vol] 148 10*3/uL Low 150-400 [facility] Comment on above: Order Comment: Speci men Type: BLOOD SPECIMENOrdering Facility: [facility] Address: [address] [place] [address] Result Comment: Resu lts checked and verified.No clot detected. Performed By: #### 5 8410-2 ####[facility] LABIA [id number] [place] [address] [place] RBC (Bld) [#/Vol] 4.47 10*6/uL Normal 4.20-6.00 [facility] Comment on above: Order Comment: Speci men Type: BLOOD SPECIMENOrdering Facility: [facility] Address: [address] [place] [address] Performed By: #### 5 8410-2 ####[facility] LABIA [id number] [place] [address] [place] WBC (Bld) [#/Vol] 5.53 10*3/uL Normal 3.70-11.00 [facility] Comment on above: Order Comment: Speci men Type: BLOOD SPECIMENOrdering Facility: [facility] Address: [address] [place] [address] Performed By: #### 5 8410-2 ####[facility] [id number] [place] [address] [place] CNOVon 03-24-2024 CNOV Office Visit (CATA ) ASHLEY LEDESMA ([id number]) 1960 M Date Time Provider Department 03/24/24 8:20 AM JAYNE SILVEIRA During your visit today, we recorded the following information about you: Temperature Pulse Blood pressure Weight 97.7 degrees 67/minute 156/81 83.6 kg Height 1.778 m Jayne Silveira MD 04/11/2024 1:05 PM Addendum [facility] NEPHROLOG[facility] HYPERTENSION [facility] SERVICE DATE: 03/23/2024 SERVICE TIME: 3:59 PM CHIEF COMPLAINT: CKD, acquired solitary kidney HPI: Mr. 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 Pre-nephx creatinine 1.3 - 1.5 and post 1.7. No previous JOHN/ARB or other medications prior to nephx. Nuclear scan shows split function of left 49% Right 51% prior to nephx. No history of trauma and issues with kidney function ever mentioned to him by doctors. No family history of kidney disease. Rare use of Aleve. No history of obstructive uropathy. Uses CPAP regularly Home BP monitoring 120s/70s - 130s/70s. PAST MEDICAL HISTORY: ACTIVE PROBLEM LIST Ulcer of Esophagus Gout Erectile Dysfunction Benign Prostatic Hyperplasia With Urinary Obstruction History of Esophageal Ulcer Sleep Apnea Renal Mass Surgical hx Left nephx - 12/2023 Toe trauma s/p surgery tonsillectomy MEDICATIONS: vibegron (GEMTESA) 75 mg tablet Take by mouth. allopurinol (ZYLOPRIM) 300 mg tablet 1 tablet Orally Once a day for 90 days tamsulosin (FLOMAX) 0.4 mg Take 1 capsule by mouth daily at bedtime. Allergies: No Known Allergies Family history; no kidney disease, dad had bladder cancer, gout, dad with HTN, older brother with diet-controlled DM Social History Tobacco Use Smoking status: Former Types: Cigarettes Smokeless tobacco: Never Tobacco comments: Been over 30 years since had a cigarette Substance Use Topics Alcohol use: Yes Comment: may have a drink 2x per week Drug use: Never Occasional alcohol use, not since surgery. ALLERGIES: ALLERGIES No Known Allergies REVIEW OF SYSTEMS: Constitutional: No fever, No chills, and good appetite, no N/V/D, lactose intolerance Cardiovascular: No chest pain or pressure, No dyspnea on exertion, No edema, and No dizziness Genitourinary: No frothy urine, No pink or red urine, and No dysuria no nocturia PHYSICAL EXAM: 03/24/24 0811 BP: 156/81 Pulse: 67 Temp: 36.5 ?C (97.7 ?F) TempSrc: Oral Weight: 83.6 kg (184 lb 4.9 oz) Height: 177.8 cm (5' 10 ) BP - standardized method Pulse 1 BP #1: 155/83 Pulse #1: 67 beats/min 2 BP #2 : 158/80 Pulse #2 : 67 beats/min 3 BP #3 : 155/80 Pulse #3 : 68 beats/min Average Average BP: 156/81 Average Pulse: 67 beats/min Orthostatic vitals Supine Sitting Standing Standing BP : 149/83 Standing pulse : 69 BP cuff location BP cuff location: Left upper arm BP cuff size BP cuff size: regular adult Comments for BP values First BP (right) First BP (left) Constitutional:No acute distress, Responsive, Normal habitus, and Well-nourished HEENT - NCAT, PERRL, EOMI, Moist mucus membranes Neck:Trachea midline No jugular venous distension Thyroid exam normal Cardiovascular:No peripheral edema Regular rate and ryhthm, normal S1 and S2, no murmurs, rubs, or gallops Respiratory:Normal respiratory effort. Lungs clear bilaterally. Normal to palpation bilaterally. Normal to percussion bilaterally. Abdomen:Soft, non-tender, non-distended. Normal bowel sounds. No hepatosplenomegaly. Psychiatric: Alert and oriented x self, place, time, and setting Normal mood/affect DATA: Diagnostic tests reviewed for today's visit: Latest Reference Range AND Units 03/24/24 09:43 Sodium 136 - 144 mmol/L 143 Potassium 3.7 - 5.1 mmol/L 4.7 Chloride 97 - 105 mmol/L 104 CO2 22 - 30 mmol/L 27 BUN 9 - 24 mg/dL 22 Creatinine 0.73 - 1.22 mg/dL 1.63 (H) Glucose 74 - 99 mg/dL 112 (H) Protein, Total 6.3 - 8.0 g/dL 7.0 Calcium 8.5 - 10.2 mg/dL 10.6 (H) Phosphorus 2.7 - 4.8 mg/dL 3.6 Albumin 3.9 - 4.9 g/dL 4.7 Bilirubin, Total 0.2 - 1.3 mg/dL 1.1 Alkaline Phosphatase 38 - 113 U/L 86 ALT 10 - 54 U/L 10 AST 14 - 40 U/L 18 Anion Gap 9 - 18 mmol/L 12 Uric Acid 4.0 - 8.1 mg/dL 4.8 eGFR >=60 mL/min/1.73m? 47 (L) Cystatin C 0.61 - 0.95 mg/L 1.25 (H) WBC 3.70 - 11.00 k/uL 5.53 RBC 4.20 - 6.00 m/uL 4.47 Hemoglobin 13.0 - 17.0 g/dL 12.6 (L) Hematocrit 39.0 - 51.0 % 39.8 Platelet Count 150 - 400 k/uL 148 (L) MCV 80.0 - 100.0 fL 89.0 MCH 26.0 - 34.0 pg 28.2 MCHC 30.5 - 36.0 g/dL 31.7 MPV 9.0 - 12.7 fL 13.6 (H) RDW-CV 11.5 - 15.0 % 15.2 (H) Absolute nRBC <0.01 k/uL <0.01 Cystatin C eGFR >=60 mL/min/1.73m? 57 (L) (H): Data is abnormally high (L): Data is abnormally low Latest Reference Range AND Units 03/24/24 10:08 (more content not included)... Normal [facility] CYSTATIN Con 03-24-2024 Cystatin C [Mass/Vol] 1.25 mg/L High 0.61 - 0.95 mg/L [facility] Cystatin C eGFR 57 Low - PINF [facility] Comment on above: Estimated Glomerular Filtration Rate (eGFR) is calculated using the 2012 CKD-EPI cystatin C equation. This equation utilizes serum cystatin C, sex, and age as parameters. The cystatin C assay has traceable calibration to the [facility]-DA471/IF reference material. Refer to KDIGO guidelines for clinical interpretation. In patients with unstable renal function, e.g. those with acute kidney injury, the eGFR may not accurately reflect actual GFR. Interpretation and review of laboratory results Abnormal [facility] Cystatin C [Mass/Vol] 1.25 mg/L High 0.61-0.95 [facility] Comment on above: Order Comment: Specjass yuan Type: BLOOD SPECIMENOrdering Facility: [facility] Address: [address] [place] [address] Performed By: #### C YSTC, 2777-1, 59618-7, 3084-1 ####[facility] LABCLIA [id number] [address] STATES OF [facility] CYSTATIN C EGFR 57 mL/min/1.73m??? Low >=60 C [facility] Comment on above: Order Comment: Speci lissy Type: BLOOD SPECIMENOrdering Facility: [facility] Address: [address] [place] [address] Result Comment: Alexandra mated Glomerular Filtration Rate (eGFR) is calculated using the 2012 CKD-EPI cystatin C equation. This equation utilizes serum cystatin C, sex, and age as parameters. The cystatin C assay has traceable calibration to the [facility]-DA471/IFCC reference material. Refer to KDIGO guidelines for clinical interpretation. In patients with unstable renal function, e.g. those with acute kidney injury, the eGFR may not accurately reflect actual GFR. Performed By: #### Darius CARR, 2777-1, 65436-7, 3083- ####[facility] LABCLIA [id number] [address] [address] [place] Comprehensive metabolic 2000 panelon 03-24-2024 Albumin [Mass/Vol] 4.7 g/dL Normal 3.9-4.9 [facility] Comment on above: Order Comment: Speci men Type: BLOOD SPECIMENOrdering Facility: [facility] Address: [address] [place] [address] Performed By: #### Darius CARR, 277-, , 3083-11 ####[facility] LABIA [id number] [place] [address] [place] ALP [Catalytic activity/Vol] 86 U/L Normal 38-113 [facility] Comment on above: Order Comment: Speci men Type: BLOOD SPECIMENOrdering Facility: [facility] Address: [address] [place] [address] Performed By: #### Darius CARR, 277-, , 3083-11 ####[facility] LABIA [id number] [place] [id number] [place] ALT [Catalytic activity/Vol] 10 U/L Normal 10-54 [facility] Comment on above: Order Comment: Speci men Type: BLOOD SPECIMENOrdering Facility: [facility] Address: [address] [place] [address] Performed By: #### Darius CARR, 277-, 18678-5, 3083-11 ####[facility] LABIA [id number] [address] [address] [place] Anion gap [Moles/Vol] 12 mmol/L Normal 9-18 [facility] Comment on above: Order Comment: Speci men Type: BLOOD SPECIMENOrdering Facility: [facility] Address: [address] [place] [address] Performed By: #### Darius CARR, 2776-, 17082-8, 3083-11 ####[facility] LABCLIA [id number] [place] [id number] [place] AST [Catalytic activity/Vol] 18 U/L Normal 14-40 [facility] Comment on above: Order Comment: Speci men Type: BLOOD SPECIMENOrdering Facility: [facility] Address: [address] [place] [address] Performed By: #### Darius CARR, 2776-, 29773-7, 3083-11 ####[facility] LABCLIA [id number] [place] [address] [place] Bilirubin [Mass/Vol] 1.1 mg/dL Normal 0.2-1.3 [facility] Comment on above: Order Comment: Speci men Type: BLOOD SPECIMENOrdering Facility: [facility] Address: [address] [place] [address] Performed By: #### Darius CARR, 2776-, , 3083-11 ####[facility] LABCLIA [id number] [place] [address] [place] Calcium [Mass/Vol] 10.6 mg/dL High 8.5-10.2 [facility] Comment on above: Order Comment: Speci men Type: BLOOD SPECIMENOrdering Facility: [facility] Address: [address] [place], [place] [id number] Performed By: #### Darius CARR, 277-, , 3083-11 ####[facility] LABCLIA [id number] [place] [id number] [place] Chloride [Moles/Vol] 104 mmol/L Normal 97-105 [facility] Comment on above: Order Comment: Speci men Type: BLOOD SPECIMENOrdering Facility: [facility] Address: [address] [place] [address] Performed By: #### C BRUNO, 2777-1, 18264-2, 3083-11 ####[facility] LABCLIA [id number] [place] [address] [place] CO2 [Moles/Vol] 27 mmol/L Normal 22-30 [facility] Comment on above: Order Comment: Speci men Type: BLOOD SPECIMENOrdering Facility: [facility] Address: [address] [place] [address] Performed By: #### C BRUNO, 277-1, 38306-9, 3083-11 ####[facility] LABIA [id number] [place] [address] [place] Creatinine [Mass/Vol] 1.63 mg/dL High 0.73-1.22 [facility] Comment on above: Order Comment: Speci men Type: BLOOD SPECIMENOrdering Facility: [facility] Address: [address] [place] [address] Performed By: #### Darius CARR, 277-1, , 3083-11 ####[facility] LABIA [id number] [place] [address] [place] Creatinine and Glomerular filtration rate.predicted panel (S/P/Bld) 47 mL/min/1.73m??? Low >=60 [facility] Comment on above: Order Comment: Tianna men Type: BLOOD SPECIMENOrdering Facility: [facility] Address: [address] [place] [address] Result Comment: Alexandra mated Glomerular Filtration Rate (eGFR) is calculated using the 2020 CKD-EPI creatinine equation. This equation utilizes serum creatinine, sex, and age as parameters. The creatinine assay has traceable calibration to isotope dilution-mass spectrometry. Refer to KDIGO guidelines for clinical interpretation. In patients with unstable renal function, e.g. those with acute kidney injury, the eGFR may not accurately reflect actual GFR. Performed By: #### Darius CARR, 277-1, , 3083-11 ####[facility] LABCLIA [id number] [place] [id number] [place] Glucose [Mass/Vol] 112 mg/dL High 74-99 [facility] Comment on above: Order Comment: Speci men Type: BLOOD SPECIMENOrdering Facility: [facility] Address: [address] [place] [address] Result Comment: The [place] [employer] (ADA) provides guidance for cutoff values for fasting glucose and random glucose. The ADA defines fasting as no caloric intake for at least 8 hours. Fasting plasma glucose results between 100 to 125 mg/dL indicate increased risk for diabetes (prediabetes). Fasting plasma glucose results greater than or equal to 126 mg/dL meet the criteria for diagnosis of diabetes. In the absence of unequivocal hyperglycemia, results should be confirmed by repeat testing. In a patient with classic symptoms of hyperglycemia or hyperglycemic crisis, random plasma glucose results greater than or equal to 200 mg/dL meet the criteria for diagnosis of diabetes. Reference: Standards of Medical Care in Diabetes 2016, [place] [employer]. Diabetes Care. 2016.39(Suppl 1). Performed By: #### C YSTC, 2777-1, 21296-3, 3083-11 ####[facility] LABIA [id number] [place] [address] [place] Potassium [Moles/Vol] 4.7 mmol/L Normal 3.7-5.1 [facility] Comment on above: Order Comment: Speci men Type: BLOOD SPECIMENOrdering Facility: [facility] Address: [address] [place] [address] Performed By: #### C YSTC, 2777-1, 88944-2, 3083- ####[facility] LABCLIA [id number] [place] [address] [place] Protein [Mass/Vol] 7.0 g/dL Normal 6.3-8.0 [facility] Comment on above: Order Comment: Speci men Type: BLOOD SPECIMENOrdering Facility: [facility] Address: [address] [place], [place] [address] Performed By: #### C YSTC, 2777-1, 60648-6, 3084-1 ####[facility] LABCLIA [id number] [place] [address] [place] Sodium [Moles/Vol] 143 mmol/L Normal 136-144 [facility] Comment on above: Order Comment: Speci men Type: BLOOD SPECIMENOrdering Facility: [facility] Address: [address] [place] [address] Performed By: #### C YSTC, 2777-1, 94250-2, 3084-1 ####[facility] LABCLIA [id number] [place] [address] [place] Urea nitrogen [Mass/Vol] 22 mg/dL Normal 9-24 [facility] Comment on above: Order Comment: Speci men Type: BLOOD SPECIMENOrdering Facility: [facility] Address: [address] [place] [address] Performed By: #### C YSTC, 2777-1, 90024-6, 3084-1 ####[facility] LABCLIA [id number] [place] [address] [place] No Panel Informationon 03-24 [facility] PROTEIN / CREATININE RATIOon 03-24-2024 Protein/Creatinine (U) [Mass ratio] mg/mg NINF - 0.15 mg/mg [facility] Comment on above: Adult Proteinuria Ca tegories: <0.15 mg/mg is considered normal to mildly increased 0.15 - 0.50 mg/mg is considered moderately increased >0.50 mg/mg is considered severely increased KDIGO. (2013). KDIGO 2012 Clinical Practice Guideline for the Evaluation and Management of Chronic Kidney Disease. Official Journal of the International Society of Nephrology, 3(1), 1-150. Phosphate SerPl-mCncon 03-24 Phosphate [Mass/Vol] 3.6 mg/dL Normal 2.7-4.8 [facility] Comment on above: Order Comment: Speci men Type: BLOOD SPECIMENOrdering Facility: [facility] Address: [address] [place] [address] Performed By: #### C YSTC, 2777-1, 06199-5, 3084-1 ####[facility] LABCLIA [id number] [place] [address] [place] Prot/Creat Uron 03-24-2024 Protein/Creatinine (U) [Mass ratio] mg/g Normal <0.15 [facility] Comment on above: Order Comment: Speci men Type: URINE SPECIMENOrdering Facility: [facility] Address: [address] [place] [address] Result Comment: Adul t Proteinuria Categories: <0.15 mg/mg is considered normal to mildly increased 0.15 - 0.50 mg/mg is considered moderately increased >0.50 mg/mg is considered severely increased KDIGO. (2013). KDIGO 2012 Clinical Practice Guideline for the Evaluation and Management of Chronic Kidney Disease. Official Journal of the International Society of Nephrology, 3(1), 1-150. Performed By: #### 2 890-2 ####[facility] LABIA [id number] [place] [address] [place] Protein/Creatinine (U) [Mass ratio]on 03-24-2024 Creatinine (U) [Mass/Vol] 41.6 mg/dL 20.0 - 300.0 mg/dL [facility] Interpretation and review of laboratory results Normal [facility] Protein (U) [Mass/Vol] mg/dL 0 - 20 mg/dL [facility] Creatinine (U) [Mass/Vol] 41.6 mg/dL Normal 20.0-300.0 [facility] Comment on above: Order Comment: Speci men Type: URINE SPECIMENOrdering Facility: [facility] Address: [address] [place] [address] Performed By: #### 2 890-2 ####[facility] LABCLIA [id number] [place] [address] [place] Protein (U) [Mass/Vol] mg/dL Normal 0-20 [facility] Comment on above: Order Comment: Speci men Type: URINE SPECIMENOrdering Facility: [facility] Address: [address] [place] [address] Performed By: #### 2 890-2 ####[facility] LABCLIA [id number] [place] [address] [place] URIC ACIDon 03-24-2024 Urate [Mass/Vol] 4.8 mg/dL 4.0 - 8.1 mg/dL [facility] URINALYSIS, REFLEX MICROSCOP ICon 03-24-2024 Bilirubin Ql (U) Negative Negative [facility] Clarity (Unsp spec) Clear Clear [facility] Color (U) Colorless Yellow [facility] Glucose Test strip (U) [Mass/Vol] Negative Trace, Negative [facility] Hemoglobin Ql (U) Negative Negative, Trace [facility] Interpretation and review of laboratory results Normal [facility] Ketones Ql (U) Negative Negative, Trace [facility] Leukocyte esterase Test strip Ql (U) Negative Negative, 25 [place]/uL [facility] Nitrite Ql (U) Negative Negative [facility] pH (U) 7.0 [pH] 5.0 - 8.0 [facility] Protein (U) [Mass/Vol] Negative Trace, Negative [facility] Specific gravity (U) [Rel density] 1.006 1.005 - 1.030 [facility] Urobilinogen Ql (U) Normal Normal [facility] Bilirubin Ql (U) Negative Normal Negative [facility] Comment on above: Order Comment: Speci men Type: URINE SPECIMENOrdering Facility: [facility] Address: [address] [place] [address] Performed By: #### L [id number] ####[facility] LABIA [id number] [place] [address] [place] Clarity (Unsp spec) Clear Normal Clear [facility] Comment on above: Order Comment: Speci men Type: URINE SPECIMENOrdering Facility: [facility] Address: [address] [place] [address] Performed By: #### L [id number] ####[facility] LABCLIA [id number] [place] [address] [place] Color (U) Colorless Normal Yellow [facility] Comment on above: Order Comment: Speci men Type: URINE SPECIMENOrdering Facility: [facility] Address: [address] [place] [address] Performed By: #### L [id number] ####[facility] LABCLIA [id number] [place] [address] [place] Glucose Test strip (U) [Mass/Vol] Negative Normal Trace, Negative [facility] Comment on above: Order Comment: Speci men Type: URINE SPECIMENOrdering Facility: [facility] Address: [address] [place] [address] Performed By: #### L [id number] ####[facility] LABCLIA [id number] [place] [address] [place] Hemoglobin Ql (U) Negative Normal Negative, Trace [facility] Comment on above: Order Comment: Speci men Type: URINE SPECIMENOrdering Facility: [facility] Address: [address] [place] [address] Performed By: #### L [id number] ####[facility] LABCLIA [id number] [place] [address] [place] Ketones Ql (U) Negative Normal Negative, Trace [facility] Comment on above: Order Comment: Speci men Type: URINE SPECIMENOrdering Facility: [facility] Address: [address] [place] [address] Performed By: #### L [id number] ####[facility] LABCLIA [id number] [place] [address] [place] Leukocyte esterase Test strip Ql (U) Negative Normal Negative, 25 [place]/uL [facility] Comment on above: Order Comment: Speci men Type: URINE SPECIMENOrdering Facility: [facility] Address: [address] [place] [address] Performed By: #### L [id number] ####[facility] LABCLIA [id number] [place] [address] [place] Nitrite Ql (U) Negative Normal Negative [facility] Comment on above: Order Comment: Speci men Type: URINE SPECIMENOrdering Facility: [facility] Address: [address] [place] [address] Performed By: #### L [id number] ####[facility] LABCLIA [id number] [place] [address] [place] pH (U) 7.0 [pH] Normal 5.0-8.0 [facility] Comment on above: Order Comment: Speci men Type: URINE SPECIMENOrdering Facility: [facility] Address: [address] [place] [address] Performed By: #### L [id number] ####[facility] [facility] [id number] [place] [address] [place] Protein (U) [Mass/Vol] Negative Normal Trace, Negative [facility] Comment on above: Order Comment: Speci men Type: URINE SPECIMENOrdering Facility: [facility] Address: [address] [place] [address] Performed By: #### L [id number] ####[facility] LABIA [id number] [place] [address] [place] Specific gravity (U) [Rel density] 1.006 Normal 1.005-1.030 [facility] Comment on above: Order Comment: Speci men Type: URINE SPECIMENOrdering Facility: [facility] Address: [address] [place] [address] Performed By: #### L [id number] ####[facility] LABCLIA [id number] [place] [address] [place] Urobilinogen Ql (U) Normal Normal Normal [facility] Comment on above: Order Comment: Speci men Type: URINE SPECIMENOrdering Facility: [facility] Address: [address] [place] [address] Performed By: #### L [id number] ####[facility] LABCLIA [id number] [place] [address] [place] Urate SerPl-mCncon 4 Urate [Mass/Vol] 4.8 mg/dL Normal 4.0-8.1 Claudia caruso [facility] Comment on above: Order Comment: Speci men Type: BLOOD SPECIMENOrdering Facility: [facility] Address: [address] [place] [address] Performed By: #### C YSTC, 2777-1, 44539-4, 3084-1 ####[facility] LABCLIA [id number] [place] [address] [place] Urate [Mass/Vol]on 4 Interpretation and review of laboratory results Normal [facility] ASH[facility] LED[facility] ([id number]) 1960 [place] Date Time Provider Department 01/14/24 ADAN LAMAR PODCCP During your visit today, we recorded the following information about you: Chon Felder 01/14/2024 11:11 AM Signed PATIENT INFORMATION Record ID: [id number] Patient Name: Ashley Ledesma [facility]: [facility] [place]: [facility] Attending: Charlotte Lindsey Center: Urology INSTRUCTIONS SN to remind patient of appointment date, time, location All Clear All Clear SURVEY INFORMATION Medical/Nurse Math Professor: Chon Avila 1. Your discharge instructions are important in guiding you through the recovery process. Is there anything I could help you clarify on your discharge instructions? (Standard Question) No 2. Do you have a follow up appointment related to your hospital stay scheduled within the next 30 days? (Standard Question) Yes 3. If you have a drain or catheter, have you experienced any difficulties caring for these? (Red Flag Question) No, I have instructions I can follow 4. Have you had any stomach problems such as, constipation, diarrhea, bloating, nausea/vomiting, or pain? (Red Flag Question) No MA/SN Notes: Vomited earlier in week cleared up reached out to doctors office in relation to symptoms. 5. Many patients have concerns about their medications once they are home. Do you have any questions about getting or taking your medications? (Standard Question) No 6. Do you have any new or different symptoms? (Standard Question) Yes, Patient not transferred MA/SN Notes: Vomited earlier in week cleared up reached out to doctors office in relation to symptoms. Allergies As of Date: 01/14/2024 (No Known Allergies) Date Reviewed: 01/07/2024 Reviewed by: Marilyn Menard RN - Fully Assessed Reason for Visit: Follow Up Phone Call [[phone]] Cmt: All Clear Prescriptions as of 01/14/2024 - docusate sodium (COLACE) 100 mg capsule Take 1 capsule by mouth two times a day for 15 days. - methocarbamol 1,000 mg tablet Take 1 tablet (1,000 mg) by mouth three times a day as needed. - vibegron (GEMTESA) 75 mg tablet Take by mouth. - allopurinol (ZYLOPRIM) 300 mg tablet 1 tablet Orally Once a day for 90 days - sildenafil (VIAGRA) 100 mg tablet take 1 tablet by mouth as directed 1 HOUR PRIOR TO SEXUAL ACTIVITY - tiZANidine (ZANAFLEX) 4 mg tablet 2 tablets Orally at bedtime for 15 - tamsulosin (FLOMAX) 0.4 mg Take 1 capsule by mouth daily at bedtime. Problem List As Of Date 01/14/2024 Noted Resolved Ulcer of esophagus [K22.10] 05/05/2023 Gout [M10.9] 01/04/2024 Erectile dysfunction [N52.9] 09/24/2023 Benign prostatic hyperplasia with urinary obstr*09/24/2023 History of esophageal ulcer [Z87.19] 01/06/2024 Sleep apnea [G47.30] 01/06/2024 Renal mass [N28.89] 01/06/2024 Encounter Status:Closed by CHON FELDER on 01/14/24 Normal [facility] ([id number]) 1960 M Date Time Provider Department 01/11/24 NEELA LUNDBERG GLQ During your visit today, we recorded the following information about you: Neela Lundberg RN 01/11/2024 8:25 AM Signed Returned call to Mr. Ledesma. He had an episode of nausea and vomiting last night. He is passing gas and had a very small BM this morning. No SSI. Advised to add miralax once a day and focus on hydrating until things start moving. If he continues to vomit, stops passing gas and his abdomen becomes distended, he is to go to the nearest ER. Patient verbalized understanding. All questions answered. Neela Lundberg RN, BSN Triage Nurse Department of Urology [facility] Allergies As of Date: 01/11/2024 (No Known Allergies) Date Reviewed: 01/07/2024 Reviewed by: Marilyn Menard RN - Fully Assessed Reason for Visit: Returning Patient's Call [[phone]] Prescriptions as of 01/11/2024 - oxyCODONE IR (ROXICODONE) 5 mg immediate release tablet Take 1 tablet by mouth every 6 hours as needed for pain for up to 5 days. Take oxycodone only if pain not controlled with tylenol medication. Alternate the drug with other pain medications. - docusate sodium (COLACE) 100 mg capsule Take 1 capsule by mouth two times a day for 15 days. - methocarbamol 1,000 mg tablet Take 1 tablet (1,000 mg) by mouth three times a day as needed. - vibegron (GEMTESA) 75 mg tablet Take by mouth. - allopurinol (ZYLOPRIM) 300 mg tablet 1 tablet Orally Once a day for 90 days - sildenafil (VIAGRA) 100 mg tablet take 1 tablet by mouth as directed 1 HOUR PRIOR TO SEXUAL ACTIVITY - tiZANidine (ZANAFLEX) 4 mg tablet 2 tablets Orally at bedtime for 15 - tamsulosin (FLOMAX) 0.4 mg Take 1 capsule by mouth daily at bedtime. Problem List As Of Date 01/11/2024 Noted Resolved Ulcer of esophagus [K22.10] 05/05/2023 Gout [M10.9] 01/04/2024 Erectile dysfunction [N52.9] 09/24/2023 Benign prostatic hyperplasia with urinary obstr*09/24/2023 History of esophageal ulcer [Z87.19] 01/06/2024 Sleep apnea [G47.30] 01/06/2024 Renal mass [N28.89] 01/06/2024 Encounter Status:Closed by NEELA LUNDBERG on 01/11/24 Normal [facility] Basic metabolic 2000 panelon 01-09-2024 Anion gap [Moles/Vol] 9 mmol/L Normal 9-18 [facility] Comment on above: Order Comment: Speci men Type: BLOOD SPECIMENOrdering Facility: [facility] Address: [address] [place] [address] Performed By: #### 2 4321-2 ####[facility] LABCLIA [id number] [place] [address] [place] Calcium [Mass/Vol] 9.7 mg/dL Normal 8.5-10.2 [facility] Comment on above: Order Comment: Speci men Type: BLOOD SPECIMENOrdering Facility: [facility] Address: [address] [place] [address] Performed By: #### 2 4321-2 ####[facility] LABCLIA [id number] [place] [address] [place] Chloride [Moles/Vol] 102 mmol/L Normal 97-105 [facility] Comment on above: Order Comment: Speci men Type: BLOOD SPECIMENOrdering Facility: [facility] Address: [address] [place] [address] Performed By: #### 2 4321-2 ####[facility] LABIA [id number] [place] [address] [place] CO2 [Moles/Vol] 27 mmol/L Normal 22-30 [facility] Comment on above: Order Comment: Speci men Type: BLOOD SPECIMENOrdering Facility: [facility] Address: [address] [place] [address] Performed By: #### 2 4321-2 ####[facility] LABIA [id number] [address] STATES [facility] Creatinine [Mass/Vol] 1.70 mg/dL High 0.73-1.22 [facility] Comment on above: Order Comment: Speci men Type: BLOOD SPECIMENOrdering Facility: [facility] Address: [address] [place] [address] Performed By: #### 2 4321-2 ####[facility] LABIA [id number] [address] Creatinine and Glomerular filtration rate.predicted panel (S/P/Bld) 44 mL/min/1.73m??? Low >=60 [facility] Comment on above: Order Comment: Speci men Type: BLOOD SPECIMENOrdering Facility: [facility] Address: [address] [place] [address] Result Comment: Alexandra mated Glomerular Filtration Rate (eGFR) is calculated using the 2020 CKD-EPI creatinine equation. This equation utilizes serum creatinine, sex, and age as parameters. The creatinine assay has traceable calibration to isotope dilution-mass spectrometry. Refer to KDIGO guidelines for clinical interpretation. In patients with unstable renal function, e.g. those with acute kidney injury, the eGFR may not accurately reflect actual GFR. Performed By: #### 2 4321-2 ####[facility] LABCLIA [id number] [id number], [place] [address] [place] Glucose [Mass/Vol] 135 mg/dL High 74-99 [facility] Comment on above: Order Comment: Speci men Type: BLOOD SPECIMENOrdering Facility: [facility] Address: [address] [place] [address] Result Comment: The [place] Diabetes [employer] (ADA) provides guidance for cutoff values for fasting glucose and random glucose. The ADA defines fasting as no caloric intake for at least 8 hours. Fasting plasma glucose results between 100 to 125 mg/dL indicate increased risk for diabetes (prediabetes). Fasting plasma glucose results greater than or equal to 126 mg/dL meet the criteria for diagnosis of diabetes. In the absence of unequivocal hyperglycemia, results should be confirmed by repeat testing. In a patient with classic symptoms of hyperglycemia or hyperglycemic crisis, random plasma glucose results greater than or equal to 200 mg/dL meet the criteria for diagnosis of diabetes. Reference: Standards of Medical Care in Diabetes 2016, [place] [employer]. Diabetes Care. 2016.39(Suppl 1). Performed By: #### 2 4321-2 ####[facility] LABCLIA [id number] [place] [address] [place] Potassium [Moles/Vol] 4.2 mmol/L Normal 3.7-5.1 [facility] Comment on above: Order Comment: Carlottai men Type: BLOOD SPECIMENOrdering Facility: [facility] Address: [address] [place] [address] Performed By: #### 2 4321-2 ####[facility] LABCLIA [id number] [place] [address] [place] Sodium [Moles/Vol] 138 mmol/L Normal 136-144 [facility] Comment on above: Order Comment: Speci men Type: BLOOD SPECIMENOrdering Facility: [facility] Address: [address] [place] [address] Performed By: #### 2 4321-2 ####[facility] LABCLIA [id number] [place] [address] [place] Urea nitrogen [Mass/Vol] 19 mg/dL Normal 9-24 [facility] Comment on above: Order Comment: Speci men Type: BLOOD SPECIMENOrdering Facility: [facility] Address: [address] [place] [address] Performed By: #### 2 4321-2 ####[facility] LABCLIA [id number] [place] [address] [place] CBC panel Auto (Bld)on 01-09 Erythrocyte distribution width (RBC) [Ratio] 14.6 % Normal 11.5-15.0 [facility] Comment on above: Order Comment: Speci men Type: BLOOD SPECIMENOrdering Facility: [facility] Address: [address] [place] [address] Performed By: #### 5 8410-2 ####[facility] LABIA [id number] [place] [address] [place] Hematocrit (Bld) [Volume fraction] 33.2 % Low 39.0-51.0 [facility] Comment on above: Order Comment: Speci men Type: BLOOD SPECIMENOrdering Facility: [facility] Address: [address] [place] [address] Performed By: #### 5 8410-2 ####[facility] LABIA [id number] [address] [place] Hemoglobin (Bld) [Mass/Vol] 10.6 g/dL Low 13.0-17.0 [facility] Comment on above: Order Comment: Speci men Type: BLOOD SPECIMENOrdering Facility: [facility] Address: [address] [place] [address] Performed By: #### 5 8410-2 ####[facility] LABIA [id number] [place] [address] [place] MCH (RBC) [Entitic mass] 27.8 pg Normal 26.0-34.0 [facility] Comment on above: Order Comment: Speci men Type: BLOOD SPECIMENOrdering Facility: [facility] Address: [address] [place] [address] Performed By: #### 5 8410-2 ####[facility] LABIA [id number] [place] [address] [place] MCHC (RBC) [Mass/Vol] 31.9 g/dL Normal 30.5-36.0 [facility] Comment on above: Order Comment: Speci men Type: BLOOD SPECIMENOrdering Facility: [facility] Address: [address] [place] [address] Performed By: #### 5 8410-2 ####[facility] LABIA [id number] [place] [address] [place] MCV (RBC) [Entitic vol] 87.1 fL Normal 80.0-100.0 [facility] Comment on above: Order Comment: Speci men Type: BLOOD SPECIMENOrdering Facility: [facility] Address: [address] [place] [address] Performed By: #### 5 8410-2 ####[facility] LABIA [id number] [place] [address] [place] Nucleated RBC (Bld) [#/Vol] 10*3/uL Normal <0.01 [facility] Comment on above: Order Comment: Speci men Type: BLOOD SPECIMENOrdering Facility: [facility] Address: [address] [place] [address] Performed By: #### 5 8410-2 ####[facility] LABIA [id number] [place] [address] [place] Platelet mean volume (Bld) [Entitic vol] 14.1 fL High 9.0-12.7 [facility] Comment on above: Order Comment: Speci men Type: BLOOD SPECIMENOrdering Facility: [facility] Address: [address] [place] [address] Performed By: #### 5 8410-2 ####[facility] LABCLIA [id number] [place] [address] [place] Platelets (Bld) [#/Vol] 146 10*3/uL Low 150-400 [facility] Comment on above: Order Comment: Speci men Type: BLOOD SPECIMENOrdering Facility: [facility] Address: [address] [place] [address] Result Comment: Resu lts checked and verified.No clot detected. Performed By: #### 5 8410-2 ####[facility] LABIA [id number] [place] [address] [place] RBC (Bld) [#/Vol] 3.81 10*6/uL Low 4.20-6.00 [facility] Comment on above: Order Comment: Speci men Type: BLOOD SPECIMENOrdering Facility: [facility] Address: [address] [place] [address] Performed By: #### 5 8410-2 ####[facility] [id number] [place] [address] [place] WBC (Bld) [#/Vol] 7.31 10*3/uL Normal 3.70-11.00 [facility] Comment on above: Order Comment: Speci men Type: BLOOD SPECIMENOrdering Facility: [facility] Address: [address] [place] [address] Performed By: #### 5 8410-2 ####[facility] [id number] [place] [address] [place] CNDSon 01-09-2024 CNDS HNO ID: [id number] Author: CHARLOTTE LINDSEY MD Service: Urology Author Type: Physician Type: Discharge Summary Filed: 02/06/2024 07:56 Note Text: [place] [address] or (090) [facility] E N T I A L I N F O R M A T I O N ------- STANDARD [facility] DOCUMENT DISCHARGE SUMMARY Patient Name: Ashley Ledesma Patient Admission Date: 01/06/2024 Discharge Date: January 09, 2024 Attending Physician: Charlotte Lindsey MD Principal Diagnosis: Left renal mass Secondary Diagnoses: None Operations During Hospitalization: Procedure(s) (LRB): LAPAROSCOPIC HAND ASSISTED NEPHRECTOMY (Left) Procedures Performed While Hospitalized: Intubation Reason for Hospitalization: 63 year old male with BPH s/p TURP 2014, Bladder cancer s/p TURBT 2014 on surveillance, large left renal mass . Hospital Course: Ashley Ledesma underwent Procedure(s) (LRB): LAPAROSCOPIC HAND ASSISTED NEPHRECTOMY (Left) on 01/06. Subsequently TALENT MANAGER is required. Please contact your security system administrator to configure this SmartLink. was transferred to a regular nursing unit. Pain was initially controlled with intravenous/oral analgesia, Diet was slowly advanced as tolerated , Activity level was gradually increased. Zuniga was removed and he was voiding with low residuals. On post-operative day 3 he was afebrile for approximately 24 hours, ambulating without difficulty, tolerating diet, and pain was adequately controlled with oral medication. The patient was discharged home with instructions to return for follow up in clinic . Patient Condition at Discharge: Improved Discharge Disposition: Home Information Provided to the Patient: Patient was given a copy of Discharge Instructions Discharge Medications: Medication List START taking these medications docusate sodium 100 mg capsule Commonly known as: COLACE Take 1 capsule by mouth two times a day for 15 days. methocarbamol 1,000 mg tablet Take 1 tablet (1,000 mg) by mouth three times a day as needed. oxyCODONE IR 5 mg immediate release tablet Commonly known as: ROXICODONE Take 1 tablet by mouth every 6 hours as needed for pain for up to 5 days. Take oxycodone only if pain not controlled with tylenol medication. Alternate the drug with other pain medications. CONTINUE taking these medications allopurinol 300 mg tablet Commonly known as: ZYLOPRIM sildenafil 100 mg tablet Commonly known as: VIAGRA tamsulosin 0.4 mg Commonly known as: FLOMAX Take 1 capsule by mouth daily at bedtime. tiZANidine 4 mg tablet Commonly known as: ZANAFLEX vibegron 75 mg tablet Commonly known as: GEMTESA Where to Get Your Medications These medications were sent to [id number] [place] [address] - [address] [facility] - [phone] 1000[address] [address] [facility] [address] docusate sodium 100 mg capsule methocarbamol 1,000 mg tablet oxyCODONE IR 5 mg immediate release tablet Future Appointments: No future appointments. Electronically SIGNED by Licensed Independent Practitioner: Julisa Ugalde MD Normal [facility] Basic metabolic 2000 panelon 01-08-2024 Anion gap [Moles/Vol] 9 mmol/L Normal 9-18 [facility] Comment on above: Order Comment: Speci men Type: BLOOD SPECIMENOrdering Facility: [facility] Address: [address] [place] [address] Performed By: #### 2 4321-2 ####[facility] [id number] [place] [address] [place] Calcium [Mass/Vol] 9.7 mg/dL Normal 8.5-10.2 [facility] Comment on above: Order Comment: Speci men Type: BLOOD SPECIMENOrdering Facility: [facility] Address: [address] [place] [address] Performed By: #### 2 4321-2 ####[facility] LABIA [id number] [place] [address] [place] Chloride [Moles/Vol] 98 mmol/L Normal 97-105 [facility] Comment on above: Order Comment: Speci men Type: BLOOD SPECIMENOrdering Facility: [facility] Address: [address] [place] [address] Performed By: #### 2 4321-2 ####[facility] LABCLIA [id number] [place] [address] [place] CO2 [Moles/Vol] 32 mmol/L High 22-30 [facility] Comment on above: Order Comment: Speci men Type: BLOOD SPECIMENOrdering Facility: [facility] Address: [address] [place] [address] Performed By: #### 2 4321-2 ####[facility] LABCLIA [id number] [place] [address] [place] Creatinine [Mass/Vol] 1.77 mg/dL High 0.73-1.22 [facility] Comment on above: Order Comment: Speci men Type: BLOOD SPECIMENOrdering Facility: [facility] Address: [address] [place] [address] Performed By: #### 2 4321-2 ####[facility] LABIA [id number] [place] [address] [place] Creatinine and Glomerular filtration rate.predicted panel (S/P/Bld) 42 mL/min/1.73m??? Low >=60 [facility] Comment on above: Order Comment: Speci men Type: BLOOD SPECIMENOrdering Facility: [facility] Address: [address] [place] [address] Result Comment: Alexandra mated Glomerular Filtration Rate (eGFR) is calculated using the 2020 CKD-EPI creatinine equation. This equation utilizes serum creatinine, sex, and age as parameters. The creatinine assay has traceable calibration to isotope dilution-mass spectrometry. Refer to KDIGO guidelines for clinical interpretation. In patients with unstable renal function, e.g. those with acute kidney injury, the eGFR may not accurately reflect actual GFR. Performed By: #### 2 4321-2 ####[facility] LABCLIA [id number] [place] [id number] [place] Glucose [Mass/Vol] 130 mg/dL High 74-99 [facility] Comment on above: Order Comment: Speci men Type: BLOOD SPECIMENOrdering Facility: [facility] Address: [address] [place] [address] Result Comment: The [place] Diabetes [employer] (ADA) provides guidance for cutoff values for fasting glucose and random glucose. The ADA defines fasting as no caloric intake for at least 8 hours. Fasting plasma glucose results between 100 to 125 mg/dL indicate increased risk for diabetes (prediabetes). Fasting plasma glucose results greater than or equal to 126 mg/dL meet the criteria for diagnosis of diabetes. In the absence of unequivocal hyperglycemia, results should be confirmed by repeat testing. In a patient with classic symptoms of hyperglycemia or hyperglycemic crisis, random plasma glucose results greater than or equal to 200 mg/dL meet the criteria for diagnosis of diabetes. Reference: Standards of Medical Care in Diabetes 2016, [place] [employer]. Diabetes Care. 2016.39(Suppl 1). Performed By: #### 2 4321-2 ####[facility] LABCLIA [id number] [place] [address] [place] Potassium [Moles/Vol] 4.2 mmol/L Normal 3.7-5.1 [facility] Comment on above: Order Comment: Speci men Type: BLOOD SPECIMENOrdering Facility: [facility] Address: [address] [place] [id number] Performed By: #### 2 4321-2 ####[facility] LABCLIA [id number] [place] [address] [place] Sodium [Moles/Vol] 139 mmol/L Normal 136-144 [facility] Comment on above: Order Comment: Speci men Type: BLOOD SPECIMENOrdering Facility: [facility] Address: [address] [place] [address] Performed By: #### 2 4321-2 ####[facility] LABCLIA [id number] [place] [address] [place] Urea nitrogen [Mass/Vol] 20 mg/dL Normal 9-24 [facility] Comment on above: Order Comment: Speci men Type: BLOOD SPECIMENOrdering Facility: [facility] Address: [address] [place] [address] Performed By: #### 2 4321-2 ####[facility] LABIA [id number] [place] [address] [place] CBC panel Auto (Bld)on 01-08 Erythrocyte distribution width (RBC) [Ratio] 14.6 % Normal 11.5-15.0 [facility] Comment on above: Order Comment: Speci men Type: BLOOD SPECIMENOrdering Facility: [facility] Address: [address] [place] [address] Performed By: #### 5 8410-2 ####[facility] [id number] [place] [address] [place] Hematocrit (Bld) [Volume fraction] 34.2 % Low 39.0-51.0 [facility] Comment on above: Order Comment: Speci men Type: BLOOD SPECIMENOrdering Facility: [facility] Address: [address] [place] [address] Performed By: #### 5 8410-2 ####[facility] [id number] [place] [address] [place] Hemoglobin (Bld) [Mass/Vol] 11.0 g/dL Low 13.0-17.0 [facility] Comment on above: Order Comment: Speci men Type: BLOOD SPECIMENOrdering Facility: [facility] Address: [address] [place] [address] Performed By: #### 5 8410-2 ####[facility] [id number] [place] [address] [place] MCH (RBC) [Entitic mass] 28.0 pg Normal 26.0-34.0 [facility] Comment on above: Order Comment: Speci men Type: BLOOD SPECIMENOrdering Facility: [facility] Address: [address] [place] [address] Performed By: #### 5 8410-2 ####[facility] LABIA [id number] [place] [address] [place] MCHC (RBC) [Mass/Vol] 32.2 g/dL Normal 30.5-36.0 [facility] Comment on above: Order Comment: Speci men Type: BLOOD SPECIMENOrdering Facility: [facility] Address: [address] [place] [address] Performed By: #### 5 8410-2 ####[facility] LABIA [id number] [place] [address] [place] MCV (RBC) [Entitic vol] 87.0 fL Normal 80.0-100.0 [facility] Comment on above: Order Comment: Speci men Type: BLOOD SPECIMENOrdering Facility: [facility] Address: [address] [place] [address] Performed By: #### 5 8410-2 ####[facility] LABIA [id number] [place] [address] [place] Nucleated RBC (Bld) [#/Vol] 10*3/uL Normal <0.01 [facility] Comment on above: Order Comment: Speci men Type: BLOOD SPECIMENOrdering Facility: [facility] Address: [address] [place] [address] Performed By: #### 5 8410-2 ####[facility] LABIA [id number] [place] [address] [place] Platelet mean volume (Bld) [Entitic vol] 13.7 fL High 9.0-12.7 [facility] Comment on above: Order Comment: Speci men Type: BLOOD SPECIMENOrdering Facility: [facility] Address: [address] [place] [address] Performed By: #### 5 8410-2 ####[facility] LABIA [id number] [place] [address] [place] Platelets (Bld) [#/Vol] 147 10*3/uL Low 150-400 [facility] Comment on above: Order Comment: Speci men Type: BLOOD SPECIMENOrdering Facility: [facility] Address: [address] [place] [address] Result Comment: Resu lts checked and verified.No clot detected. Performed By: #### 5 8410-2 ####[facility] LABCLIA [id number] [place] [address] [place] RBC (Bld) [#/Vol] 3.93 10*6/uL Low 4.20-6.00 [facility] Comment on above: Order Comment: Speci men Type: BLOOD SPECIMENOrdering Facility: [facility] Address: [address] [place] [address] Performed By: #### 5 8410-2 ####[facility] LABCLIA [id number] [place] [address] [place] WBC (Bld) [#/Vol] 9.00 10*3/uL Normal 3.70-11.00 [facility] Comment on above: Order Comment: Speci men Type: BLOOD SPECIMENOrdering Facility: [facility] Address: [address] [place] [address] Performed By: #### 5 8410-2 ####[facility] LABCLIA [id number] [place] [address] [place] Basic metabolic 2000 panelon 01-07-2024 Anion gap [Moles/Vol] 10 mmol/L Normal 9-18 [facility] Comment on above: Order Comment: Speci men Type: BLOOD SPECIMENOrdering Facility: [facility] Address: [address] [place] [address] Performed By: #### 2 4321-2 ####[facility] LABCLIA [id number] [place] [address] [place] Calcium [Mass/Vol] 9.5 mg/dL Normal 8.5-10.2 [facility] Comment on above: Order Comment: Speci men Type: BLOOD SPECIMENOrdering Facility: [facility] Address: [address] [place] [address] Performed By: #### 2 4321-2 ####[facility] LABCLIA [id number] [place] [address] [place] Chloride [Moles/Vol] 105 mmol/L Normal 97-105 [facility] Comment on above: Order Comment: Speci men Type: BLOOD SPECIMENOrdering Facility: [facility] Address: [address] [place] [address] Performed By: #### 2 4321-2 ####[facility] LABCLIA [id number] [place] [address] [place] CO2 [Moles/Vol] 27 mmol/L Normal 22-30 [facility] Comment on above: Order Comment: Speci men Type: BLOOD SPECIMENOrdering Facility: [facility] Address: [address] [place] [address] Performed By: #### 2 4321-2 ####[facility] LABCLIA [id number] [place] [address] [place] Creatinine [Mass/Vol] 1.66 mg/dL High 0.73-1.22 [facility] Comment on above: Order Comment: Speci men Type: BLOOD SPECIMENOrdering Facility: [facility] Address: [address] [place] [address] Performed By: #### 2 4321-2 ####[facility] LABCLIA [id number] [place] [address] [place] Creatinine and Glomerular filtration rate.predicted panel (S/P/Bld) 46 mL/min/1.73m??? Low >=60 [facility] Comment on above: Order Comment: Speci men Type: BLOOD SPECIMENOrdering Facility: [facility] Address: [address] [place] [address] Result Comment: Alexandra mated Glomerular Filtration Rate (eGFR) is calculated using the 2020 CKD-EPI creatinine equation. This equation utilizes serum creatinine, sex, and age as parameters. The creatinine assay has traceable calibration to isotope dilution-mass spectrometry. Refer to KDIGO guidelines for clinical interpretation. In patients with unstable renal function, e.g. those with acute kidney injury, the eGFR may not accurately reflect actual GFR. Performed By: #### 2 4321-2 ####[facility] LABIA [id number] [place] [address] [place] Glucose [Mass/Vol] 132 mg/dL High 74-99 [facility] Comment on above: Order Comment: Tianna yuan Type: BLOOD SPECIMENOrdering Facility: [facility] Address: [address] [place] [address] Result Comment: The [place] [employer] (ADA) provides guidance for cutoff values for fasting glucose and random glucose. The ADA defines fasting as no caloric intake for at least 8 hours. Fasting plasma glucose results between 100 to 125 mg/dL indicate increased risk for diabetes (prediabetes). Fasting plasma glucose results greater than or equal to 126 mg/dL meet the criteria for diagnosis of diabetes. In the absence of unequivocal hyperglycemia, results should be confirmed by repeat testing. In a patient with classic symptoms of hyperglycemia or hyperglycemic crisis, random plasma glucose results greater than or equal to 200 mg/dL meet the criteria for diagnosis of diabetes. Reference: Standards of Medical Care in Diabetes 2016, [place] [employer]. Diabetes Care. 2016.39(Suppl 1). Performed By: #### 2 4321-2 ####[facility] LABIA [id number] [place] [id number] [place] Potassium [Moles/Vol] 5.0 mmol/L Normal 3.7-5.1 [facility] Comment on above: Order Comment: Tianna yuan Type: BLOOD SPECIMENOrdering Facility: [facility] Address: [address] [place] [address] Performed By: #### 2 4321-2 ####[facility] LABIA [id number] [place] [id number] [place] Sodium [Moles/Vol] 142 mmol/L Normal 136-144 [facility] Comment on above: Order Comment: Speci men Type: BLOOD SPECIMENOrdering Facility: [facility] Address: [address] [place] [address] Performed By: #### 2 4321-2 ####[facility] LABCLIA [id number] [place] [address] [place] Urea nitrogen [Mass/Vol] 20 mg/dL Normal 9-24 [facility] Comment on above: Order Comment: Speci men Type: BLOOD SPECIMENOrdering Facility: [facility] Address: [address] [place] [address] Performed By: #### 2 4321-2 ####[facility] LABCLIA [id number] [place] [address] [place] CBC W Auto Differential pane l (Bld)on 01-07-2024 Basophils (Bld) [#/Vol] 10*3/uL Normal <0.11 [facility] Comment on above: Order Comment: Speci men Type: BLOOD SPECIMENOrdering Facility: [facility] Address: [address] [place] [address] Performed By: #### 5 7021-8 ####[facility] LABCLIA [id number] [place] [address] [place] Basophils/100 WBC (Bld) 0.1 % Normal [facility] Comment on above: Order Comment: Speci men Type: BLOOD SPECIMENOrdering Facility: [facility] Address: [address] [place] [address] Performed By: #### 5 7021-8 ####[facility] LABCLIA [id number] [place] [address] [place] Differential cell count method Nom (Bld) Auto Normal [facility] Comment on above: Order Comment: Speci men Type: BLOOD SPECIMENOrdering Facility: [facility] Address: [address] [place] [address] Performed By: #### 5 7021-8 ####[facility] LABCLIA [id number] [place] [address] [place] Eosinophils (Bld) [#/Vol] 10*3/uL Normal <0.46 [facility] Comment on above: Order Comment: Speci men Type: BLOOD SPECIMENOrdering Facility: [facility] Address: [address] [place] [address] Performed By: #### 5 7021-8 ####[facility] LABCLIA [id number] [place] [address] [place] Eosinophils/100 WBC (Bld) 0.0 % Normal [facility] Comment on above: Order Comment: Speci men Type: BLOOD SPECIMENOrdering Facility: [facility] Address: [address] [place] [address] Performed By: #### 5 7021-8 ####[facility] LABCLIA [id number] [place] [address] [place] Erythrocyte distribution width (RBC) [Ratio] 14.5 % Normal 11.5-15.0 [facility] Comment on above: Order Comment: Speci men Type: BLOOD SPECIMENOrdering Facility: [facility] Address: [address] [place] [address] Performed By: #### 5 7021-8 ####[facility] LABCLIA [id number] [place] [address] [place] Hematocrit (Bld) [Volume fraction] 37.1 % Low 39.0-51.0 [facility] Comment on above: Order Comment: Speci men Type: BLOOD SPECIMENOrdering Facility: [facility] Address: [address] [place] [address] Performed By: #### 5 7021-8 ####[facility] LABCLIA [id number] [place] [address] [place] Hemoglobin (Bld) [Mass/Vol] 12.2 g/dL Low 13.0-17.0 [facility] Comment on above: Order Comment: Speci men Type: BLOOD SPECIMENOrdering Facility: [facility] Address: [address] [place] [address] Performed By: #### 5 7021-8 ####[facility] LABCLIA [id number] [place] [address] [place] Immature granulocytes (Bld) [#/Vol] 0.06 10*3/uL Normal <0.10 [facility] Comment on above: Order Comment: Speci men Type: BLOOD SPECIMENOrdering Facility: [facility] Address: [address] [place] [address] Performed By: #### 5 7021-8 ####[facility] LABCLIA [id number] [place] [address] [place] Immature granulocytes/100 WBC (Bld) 0.4 % Normal [facility] Comment on above: Order Comment: Speci men Type: BLOOD SPECIMENOrdering Facility: [facility] Address: [address] [place] [address] Performed By: #### 5 7021-8 ####[facility] LABCLIA [id number] [place] [address] [place] Lymphocytes (Bld) [#/Vol] 0.76 10*3/uL Low 1.00-4.00 [facility] Comment on above: Order Comment: Speci men Type: BLOOD SPECIMENOrdering Facility: [facility] Address: [address] [place] [address] Performed By: #### 5 7021-8 ####[facility] LABCLIA [id number] [place] [address] [place] Lymphocytes/100 WBC (Bld) 5.5 % Normal [facility] Comment on above: Order Comment: Speci men Type: BLOOD SPECIMENOrdering Facility: [facility] Address: [address] [place] [address] Performed By: #### 5 7021-8 ####[facility] LABIA [id number] [place] [address] [place] MCH (RBC) [Entitic mass] 28.4 pg Normal 26.0-34.0 [facility] Comment on above: Order Comment: Speci men Type: BLOOD SPECIMENOrdering Facility: [facility] Address: [address] [place] [address] Performed By: #### 5 7021-8 ####[facility] [id number] [place] [address] [place] MCHC (RBC) [Mass/Vol] 32.9 g/dL Normal 30.5-36.0 [facility] Comment on above: Order Comment: Speci men Type: BLOOD SPECIMENOrdering Facility: [facility] Address: [address] [place] [address] Performed By: #### 5 7021-8 ####[facility] [id number] [place] [address] [place] MCV (RBC) [Entitic vol] 86.5 fL Normal 80.0-100.0 [facility] Comment on above: Order Comment: Speci men Type: BLOOD SPECIMENOrdering Facility: [facility] Address: [address] [place] [address] Performed By: #### 5 7021-8 ####[facility] LABIA [id number] [place] [address] [place] Monocytes (Bld) [#/Vol] 1.08 10*3/uL High <0.87 [facility] Comment on above: Order Comment: Speci men Type: BLOOD SPECIMENOrdering Facility: [facility] Address: [address] [place] [address] Performed By: #### 5 7021-8 ####[facility] LABIA [id number] [place] [address] [place] Monocytes/100 WBC (Bld) 7.8 % Normal [facility] Comment on above: Order Comment: Speci men Type: BLOOD SPECIMENOrdering Facility: [facility] Address: [address] [place] [address] Performed By: #### 5 7021-8 ####[facility] LABCLIA [id number] [place] [address] [place] Neutrophils (Bld) [#/Vol] 11.85 10*3/uL High 1.45-7.50 [facility] Comment on above: Order Comment: Speci men Type: BLOOD SPECIMENOrdering Facility: [facility] Address: [address] [place] [address] Performed By: #### 5 7021-8 ####[facility] LABCLIA [id number] [place] [address] [place] Neutrophils/100 WBC (Bld) 86.2 % Normal [facility] Comment on above: Order Comment: Speci men Type: BLOOD SPECIMENOrdering Facility: [facility] Address: [address] [place] [address] Performed By: #### 5 7021-8 ####[facility] LABCLIA [id number] [place] [address] [place] Nucleated RBC (Bld) [#/Vol] 10*3/uL Normal <0.01 [facility] Comment on above: Order Comment: Speci men Type: BLOOD SPECIMENOrdering Facility: [facility] Address: [address] [place] [address] Performed By: #### 5 7021-8 ####[facility] LABCLIA [id number] [place] [address] [place] Nucleated RBC/100 WBC (Bld) [Ratio] 0.0 /100 WBC Normal [facility] Comment on above: Order Comment: Speci men Type: BLOOD SPECIMENOrdering Facility: [facility] Address: [address] [place] [address] Performed By: #### 5 7021-8 ####[facility] LABIA [id number] [place] [address] [place] Platelet mean volume (Bld) [Entitic vol] 12.9 fL High 9.0-12.7 [facility] Comment on above: Order Comment: Speci men Type: BLOOD SPECIMENOrdering Facility: [facility] Address: [address] [place] [address] Performed By: #### 5 7021-8 ####[facility] LABIA [id number] [place] [address] [place] Platelets (Bld) [#/Vol] 164 10*3/uL Normal 150-400 [facility] Comment on above: Order Comment: Speci men Type: BLOOD SPECIMENOrdering Facility: [facility] Address: [address] [place] [address] Performed By: #### 5 7021-8 ####[facility] LABIA [id number] [place] [address] [place] RBC (Bld) [#/Vol] 4.29 10*6/uL Normal 4.20-6.00 [facility] Comment on above: Order Comment: Speci men Type: BLOOD SPECIMENOrdering Facility: [facility] Address: [address] [place] [address] Performed By: #### 5 7021-8 ####[facility] LABIA [id number] [place] [id number] [place] WBC (Bld) [#/Vol] 13.76 10*3/uL High 3.70-11.[address] [facility] Comment on above: Order Comment: Speci men Type: BLOOD SPECIMENOrdering Facility: [facility] Address: [address] [place] [address] Performed By: #### 5 7021-8 ####[facility] LABCLIA [id number] [place] [id number] [place] NURSING PROGon 01-07-2024 NURSING PROG HNO ID: [id number] Author: MARILYN MENARD RN Service: Nursing Author Type: Registered Nurse Type: Nursing Progress Note Filed: 01/07/2024 17:44 Note Text: Transfer Note: PATIENT NAME: Ashley Ledesma Patient Location: [place] [address] Room: [place] [address] Patient transferred into room/unit G90-9 in stable condition. Actions taken: No futher actions taken at this time. Will continue to monitor and check with patient. OBDULIA [facility]ero [facility] ANES POSTPROC EVALon 024 ANES POSTPROC EVAL HNO ID: [id number] Author: MASON ARMAS MD Service: ? Author Type: Physician Type: Anesthesia Postprocedure Evaluation Filed: 01/06/2024 19:31 Note Text: POST ANESTHESIA EVALUATION NOTE : 1960 Procedure Summary Date: 01/06/24 Room / Location: [address] [facility] Anesthesia Start: 3 Anesthesia Stop: 1904 Procedure: LAPAROSCOPIC HAND ASSISTED NEPHRECTOMY (Left: Kidney) Diagnosis: Renal mass (Renal mass [N28.89]) Surgeons: Charlotte Lindsey MD Responsible Provider: Mason Armas MD Anesthesia Type: general ASA Status: 3 Anesthesia Type: general Airway Type: ETT Last Vitals Vitals Value Taken Time BP 143/76 01/06/241929 Temp 37.1 ?C (98.8 ?F) 01/06/24 190 Pulse 83 01/06/241929 Resp 17 01/06/241929 SpO2 100 % 01/06/241929 Vitals shown include unfiled device data. Post Anesthesia Patient Status Patient Evaluation: PACU. PACU/ICU Patient Condition: stable. Anticipated Disposition: inpatient floor planned admission. Neurological Status: aware and responsive. Pulmonary Status: breathing comfortably on supplemental oxygen Airway Control: returned to baseline unsupported. Cardiovascular Status: stable. Pain Management: clinically adequate Postoperative Hydration: acceptable. Intraoperative Events: no significant anesthesia events Post Operative Nausea/Vomiting Status: no significant post operative nausea or vomiting Recommendation: continue current plan of care. Anesthesia Observations No Documentation SIGNATURE: Mason Armas MD PATIENT NAME: Ashley Ledesma DATE: January 06, 2024 TIME: 7:31 PM CSN: [id number] Normal [facility] ANES PRE-OPon 01-06-2024 ANES PRE-OP HNO ID: [id number] Author: PANDA CONNELLY MD Service: ? Author Type: Anesthesiologist Type: Anesthesia Preprocedure Evaluation Filed: 01/06/2024 13:54 Note Text: ANESTHESIOLOGY DAY OF SURGERY NOTE : 1960 Procedure Information Date/Time: 01/06/24 1336 Procedure: ROBOTIC LAPAROSCOPIC NEPHRECTOMY RADICAL (Left: Kidney) Location: [facility] Surgeons: Charlotte Lindsey MD Estimated body mass index is 27.05 kg/m? as calculated from the following: Height as of 01/05/24: 177.8 cm (5' 10 ). Weight as of 01/05/24: 85.5 kg (188 lb 7.9 oz). Most recent hematocrit and potassium results: Hematocrit 42.3 01/03/2024 Potassium 4.3 01/03/2024 Relevant Problems ANESTHESIA (+) Sleep apnea GI (+) Ulcer of esophagus NEURO-PSYCH (+) History of esophageal ulcer PULMONARY (+) Sleep apnea I - PHYSICAL EVALUATION AIRWAY Patient intubated: No. Tracheostomy tube not present Mallampati: II. TM distance: >3 FB. Neck ROM: full ROM without neurological symptoms. Mouth opening: adequate. Short neck: no. Thick neck: no II - ANESTHESIA PLAN ASA Score: 3 Anesthetic Plan: general Airway type: ETT The patient is not a current smoker. NPO Status: adequate Beta Radames Monitoring Plan Monitoring plan: standard ASA. Post Procedure Analgesic Plan Postoperative analgesic plan: parenteral or oral opioids. Informed Consent Anesthetic risks, benefits, alternatives, personnel and consent discussed: yes. Patient / Responsible Libertarian agrees to proceed: yes Patient / Surrogate agrees to blood products: Yes Significant changes in the patient condition since the History and Physical, not otherwise documented in primary service progress note: no. Potential Anesthesia issues that may suggest increased risk of complications or contraindication to planned procedure: none. Vitals Value Taken Time BP 170/84 01/06/2400 Pulse 72 01/06/24 0900 Resp 16 01/06/24899 Temp 36.6 ?C (97.9 ?F) 01/06/24899 SpO2 99 % 01/06/24899 No current facility-administered medications on file as of 01/06/2024. Outpatient Medications as of 01/06/2024 Medication Sig - vibegron (GEMTESA) 75 mg tablet Take by mouth. - sildenafil (VIAGRA) 100 mg tablet take 1 tablet by mouth as directed 1 HOUR PRIOR TO SEXUAL ACTIVITY - tiZANidine (ZANAFLEX) 4 mg tablet 2 tablets Orally at bedtime for 15 I have interviewed and examined the patient. I have reviewed the medical record and/or the pre-anesthesia evaluation, pertinent labs, and test results. This contains updated information obtained within 48 hours of Surgery/Procedure. SIGNATURE: Panda Connelly MD PATIENT NAME: Ashley Ledesma DATE: January 06, 2024 TIME: 1:53 PM CSN: [id number] Normal [facility] BRIEF OP NOTon 01-06-2024 BRIEF OP NOT HNO ID: [id number] Author: ROLF CASEY MD Service: Urology Author Type: Physician Type: Brief Op Note Filed: 01/06/2024 18:44 Note Text: BRIEF OPERATIVE / PROCEDURE NOTE LOG ID: [id number] SURGERY/PROCEDURE DATE: 01/06/2024 INCISION/PROCEDURE START TIME: 3:15 PM INCISION CLOSE/PROCEDURE END TIME: 6:38 PM SURGEON(S)/PROCEDURALIST(S) AND BLOCKER HEATED METAL FORMS(S): Surgeon(s) and Role: * Charlotte Lindsey MD - Primary * James Fraire MD - Resident - Assisting * Rolf Casey MD - Fellow No Additional Staff SURGERY/PROCEDURE(S): Laparoscopic Hand-Assisted Left Radical Nephrectomy and all indicated procedures. ANESTHESIA: General FINDINGS: Large left upper pole renal mass ESTIMATED BLOOD LOSS: 350 mls SPECIMENS: ID Type Source Tests Collected by Time Destination A : with mass Tissue KIDNEY RADICAL RESECTION LEFT SURGICAL PATHOLOGY Charlotte Lindsey MD 01/06/2024 5:57 PM COMPLICATIONS: None CLOSURE TECHNIQUE: Primary PRE-OP/PRE-PROCEDURE DIAGNOSIS: left large renal mass POST-OP/POST-PROCEDURE DIAGNOSIS: Same as Preop SIGNATURE: Rolf Casey MD PATIENT NAME: Ashley Ledesma DATE: January 06, 2024 TIME: 6:43 PM Normal [facility] CBC W Auto Differential pane l (Bld)on 01-06-2024 Basophils (Bld) [#/Vol] 10*3/uL Normal <0.11 [facility] Comment on above: Order Comment: Speci men Type: BLOOD SPECIMENOrdering Facility: [facility] Address: [address] [place] [address] Performed By: #### 5 7021-8 ####[facility] LABCLIA [id number] [place] [address] [place] Basophils/100 WBC (Bld) 0.1 % Normal [facility] Comment on above: Order Comment: Speci men Type: BLOOD SPECIMENOrdering Facility: [facility] Address: [address] [place] [address] Performed By: #### 5 7021-8 ####[facility] LABCLIA [id number] [place] [address] [place] Differential cell count method Nom (Bld) Auto Normal [facility] Comment on above: Order Comment: Speci men Type: BLOOD SPECIMENOrdering Facility: [facility] Address: [address] [place] [address] Performed By: #### 5 7021-8 ####[facility] LABCLIA [id number] [facility] [place] [address] [place] Eosinophils (Bld) [#/Vol] 10*3/uL Normal <0.46 [facility] Comment on above: Order Comment: Speci men Type: BLOOD SPECIMENOrdering Facility: [facility] Address: [address] [place] [address] Performed By: #### 5 7021-8 ####[facility] LABCLIA [id number] [place] [address] [place] Eosinophils/100 WBC (Bld) 0.1 % Normal [facility] Comment on above: Order Comment: Speci men Type: BLOOD SPECIMENOrdering Facility: [facility] Address: [address] [place] [address] Performed By: #### 5 7021-8 ####[facility] LABCLIA [id number] [place] [address] [place] Erythrocyte distribution width (RBC) [Ratio] 14.5 % Normal 11.5-15.0 [facility] Comment on above: Order Comment: Speci men Type: BLOOD SPECIMENOrdering Facility: [facility] Address: [address] [place] [address] Performed By: #### 5 7021-8 ####[facility] LABCLIA [id number] [place] [address] [place] Hematocrit (Bld) [Volume fraction] 37.4 % Low 39.0-51.0 [facility] Comment on above: Order Comment: Speci men Type: BLOOD SPECIMENOrdering Facility: [facility] Address: [address] [place] [address] Performed By: #### 5 7021-8 ####[facility] LABCLIA [id number] [place] [address] [place] Hemoglobin (Bld) [Mass/Vol] 12.0 g/dL Low 13.0-17.0 [facility] Comment on above: Order Comment: Speci men Type: BLOOD SPECIMENOrdering Facility: [facility] Address: [address] [place] [address] Performed By: #### 5 7021-8 ####[facility] LABCLIA [id number] [place] [address] [place] Immature granulocytes (Bld) [#/Vol] 0.05 10*3/uL Normal <0.10 [facility] Comment on above: Order Comment: Speci men Type: BLOOD SPECIMENOrdering Facility: [facility] Address: [address] [place] [address] Performed By: #### 5 7021-8 ####[facility] LABCLIA [id number] [place] [address] [place] Immature granulocytes/100 WBC (Bld) 0.3 % Normal [facility] Comment on above: Order Comment: Speci men Type: BLOOD SPECIMENOrdering Facility: [facility] Address: [address] [place] [address] Performed By: #### 5 7021-8 ####[facility] LABCLIA [id number] [place] [address] [place] Lymphocytes (Bld) [#/Vol] 1.06 10*3/uL Normal 1.00-4.00 [facility] Comment on above: Order Comment: Speci men Type: BLOOD SPECIMENOrdering Facility: [facility] Address: [address] [place] [address] Performed By: #### 5 7021-8 ####[facility] LABCLIA [id number] [place] [address] [place] Lymphocytes/100 WBC (Bld) 7.4 % Normal [facility] Comment on above: Order Comment: Speci men Type: BLOOD SPECIMENOrdering Facility: [facility] Address: [address] [place] [address] Performed By: #### 5 7021-8 ####[facility] LABCLIA [id number] [place] [address] [place] MCH (RBC) [Entitic mass] 28.0 pg Normal 26.0-34.0 [facility] Comment on above: Order Comment: Speci men Type: BLOOD SPECIMENOrdering Facility: [facility] Address: [address] [place] [address] Performed By: #### 5 7021-8 ####[facility] LABCLIA [id number] [place] [address] [place] MCHC (RBC) [Mass/Vol] 32.1 g/dL Normal 30.5-36.0 [facility] Comment on above: Order Comment: Speci men Type: BLOOD SPECIMENOrdering Facility: [facility] Address: [address] [place] [address] Performed By: #### 5 7021-8 ####[facility] LABCLIA [id number] [place] [address] [place] MCV (RBC) [Entitic vol] 87.2 fL Normal 80.0-100.0 [facility] Comment on above: Order Comment: Speci men Type: BLOOD SPECIMENOrdering Facility: [facility] Address: [address] [place] [address] Performed By: #### 5 7021-8 ####[facility] LABIA [id number] [place] [address] [place] Monocytes (Bld) [#/Vol] 0.75 10*3/uL Normal <0.87 [facility] Comment on above: Order Comment: Speci men Type: BLOOD SPECIMENOrdering Facility: [facility] Address: [address] [place] [address] Performed By: #### 5 7021-8 ####[facility] LABIA [id number] [place] [address] [place] Monocytes/100 WBC (Bld) 5.2 % Normal [facility] Comment on above: Order Comment: Speci men Type: BLOOD SPECIMENOrdering Facility: [facility] Address: [address] [place] [address] Performed By: #### 5 7021-8 ####[facility] LABCLIA [id number] [place] [address] [place] Neutrophils (Bld) [#/Vol] 12.43 10*3/uL High 1.45-7.50 [facility] Comment on above: Order Comment: Speci men Type: BLOOD SPECIMENOrdering Facility: [facility] Address: [address] [place] [address] Performed By: #### 5 7021-8 ####[facility] LABCLIA [id number] [place] [address] [place] Neutrophils/100 WBC (Bld) 86.9 % Normal [facility] Comment on above: Order Comment: Speci men Type: BLOOD SPECIMENOrdering Facility: [facility] Address: [address] [place] [address] Performed By: #### 5 7021-8 ####[facility] LABCLIA [id number] [place] [address] [place] Nucleated RBC (Bld) [#/Vol] 10*3/uL Normal <0.01 [facility] Comment on above: Order Comment: Speci men Type: BLOOD SPECIMENOrdering Facility: [facility] Address: [address] [place] [address] Performed By: #### 5 7021-8 ####[facility] LABCLIA [id number] [place] [address] [place] Nucleated RBC/100 WBC (Bld) [Ratio] 0.0 /100 WBC Normal [facility] Comment on above: Order Comment: Speci men Type: BLOOD SPECIMENOrdering Facility: [facility] Address: [address] [place] [address] Performed By: #### 5 7021-8 ####[facility] LABCLIA [id number] [place] [address] [place] Platelet mean volume (Bld) [Entitic vol] 12.9 fL High 9.0-12.7 [facility] Comment on above: Order Comment: Speci men Type: BLOOD SPECIMENOrdering Facility: [facility] Address: [address] [place] [address] Performed By: #### 5 7021-8 ####[facility] LABCLIA [id number] [address] [address] [place] Platelets (Bld) [#/Vol] 181 10*3/uL Normal 150-400 [facility] Comment on above: Order Comment: Speci men Type: BLOOD SPECIMENOrdering Facility: [facility] Address: [address] [place] [address] Performed By: #### 5 7021-8 ####[facility] LABCLIA [id number] [place] [address] [place] RBC (Bld) [#/Vol] 4.29 10*6/uL Normal 4.20-6.00 [facility] Comment on above: Order Comment: Speci men Type: BLOOD SPECIMENOrdering Facility: [facility] Address: [address] [place] [address] Performed By: #### 5 7021-8 ####[facility] LABIA [id number] [place] [address] [place] WBC (Bld) [#/Vol] 14.32 10*3/uL High 3.70-11.[address] [facility] Comment on above: Order Comment: Speci men Type: BLOOD SPECIMENOrdering Facility: [facility] Address: [address] [place] [address] Performed By: #### 5 7021-8 ####[facility] LABIA [id number] [place] [address] [place] Comprehensive metabolic 2000 panelon 01-06-2024 Albumin [Mass/Vol] 4.0 g/dL Normal 3.9-4.9 [facility] Comment on above: Order Comment: Speci men Type: BLOOD SPECIMENOrdering Facility: [facility] Address: [address] [place] [address] Performed By: #### 2 4323-8 ####[facility] LABCLIA [id number] [address] [id number] [address] [place] ALP [Catalytic activity/Vol] 61 U/L Normal 38-113 [facility] Comment on above: Order Comment: Speci men Type: BLOOD SPECIMENOrdering Facility: [facility] Address: [address] [place] [address] Performed By: #### 2 4323-8 ####[facility] LABCLIA [id number] [place] [address] [place] ALT [Catalytic activity/Vol] 9 U/L Low 10-54 [facility] Comment on above: Order Comment: Speci men Type: BLOOD SPECIMENOrdering Facility: [facility] Address: [address] [place] [address] Performed By: #### 2 4323-8 ####[facility] LABCLIA [id number] [place] [address] [place] Anion gap [Moles/Vol] 11 mmol/L Normal 9-18 [facility] Comment on above: Order Comment: Speci men Type: BLOOD SPECIMENOrdering Facility: [facility] Address: [address] [place] [address] Performed By: #### 2 4323-8 ####[facility] LABCLIA [id number] [place] [address] [place] AST [Catalytic activity/Vol] 24 U/L Normal 14-40 [facility] Comment on above: Order Comment: Speci men Type: BLOOD SPECIMENOrdering Facility: [facility] Address: [address] [place] [address] Performed By: #### 2 4323-8 ####[facility] LABCLIA [id number] [place] [address] [place] Bilirubin [Mass/Vol] 0.6 mg/dL Normal 0.2-1.3 [facility] Comment on above: Order Comment: Speci men Type: BLOOD SPECIMENOrdering Facility: [facility] Address: [address] [place] [address] Performed By: #### 2 4323-8 ####[facility] LABCLIA [id number] [facility] [place] [address] [place] Calcium [Mass/Vol] 9.3 mg/dL Normal 8.5-10.2 [facility] Comment on above: Order Comment: Speci men Type: BLOOD SPECIMENOrdering Facility: [facility] Address: [address] [place] [address] Performed By: #### 2 4323-8 ####[facility] LABCLIA [id number] [facility] [place] [address] [place] Chloride [Moles/Vol] 107 mmol/L High 97-105 [facility] Comment on above: Order Comment: Speci men Type: BLOOD SPECIMENOrdering Facility: [facility] Address: [address] [place] [address] Performed By: #### 2 4323-8 ####[facility] LABCLIA [id number] [place] [address] [place] CO2 [Moles/Vol] 23 mmol/L Normal 22-30 [facility] Comment on above: Order Comment: Speci men Type: BLOOD SPECIMENOrdering Facility: [facility] Address: [address] [place] [address] Performed By: #### 2 4323-8 ####[facility] LABCLIA [id number] [place] [address] [place] Creatinine [Mass/Vol] 1.50 mg/dL High 0.73-1.22 [facility] Comment on above: Order Comment: Speci men Type: BLOOD SPECIMENOrdering Facility: [facility] Address: [address] [place] [address] Performed By: #### 2 4323-8 ####[facility] LABCLIA [id number] [place] [address] [place] Creatinine and Glomerular filtration rate.predicted panel (S/P/Bld) 52 mL/min/1.73m??? Low >=60 [facility] Comment on above: Order Comment: Tianna yuan Type: BLOOD SPECIMENOrdering Facility: [facility] Address: [address] [place] [address] Result Comment: Alexandra mated Glomerular Filtration Rate (eGFR) is calculated using the 2020 CKD-EPI creatinine equation. This equation utilizes serum creatinine, sex, and age as parameters. The creatinine assay has traceable calibration to isotope dilution-mass spectrometry. Refer to KDIGO guidelines for clinical interpretation. In patients with unstable renal function, e.g. those with acute kidney injury, the eGFR may not accurately reflect actual GFR. Performed By: #### 2 4323-8 ####[facility] LABIA [id number] [place] [address] [place] Glucose [Mass/Vol] 151 mg/dL High 74-99 [facility] Comment on above: Order Comment: Tianna yuan Type: BLOOD SPECIMENOrdering Facility: [facility] Address: [address] [place] [address] Result Comment: The [place] [employer] (ADA) provides guidance for cutoff values for fasting glucose and random glucose. The ADA defines fasting as no caloric intake for at least 8 hours. Fasting plasma glucose results between 100 to 125 mg/dL indicate increased risk for diabetes (prediabetes). Fasting plasma glucose results greater than or equal to 126 mg/dL meet the criteria for diagnosis of diabetes. In the absence of unequivocal hyperglycemia, results should be confirmed by repeat testing. In a patient with classic symptoms of hyperglycemia or hyperglycemic crisis, random plasma glucose results greater than or equal to 200 mg/dL meet the criteria for diagnosis of diabetes. Reference: Standards of Medical Care in Diabetes 2016, [place] [employer]. Diabetes Care. 2016.39(Suppl 1). Performed By: #### 2 4323-8 ####[facility] LABIA [id number] [place] [address] [place] Potassium [Moles/Vol] 4.2 mmol/L Normal 3.7-5.1 [facility] Comment on above: Order Comment: Tianna yuan Type: BLOOD SPECIMENOrdering Facility: [facility] Address: [address] [place] [address] Performed By: #### 2 4323-8 ####[facility] LABCLIA [id number] [place] [address] [place] Protein [Mass/Vol] 5.9 g/dL Low 6.3-8.0 [facility] Comment on above: Order Comment: Speci men Type: BLOOD SPECIMENOrdering Facility: [facility] Address: [address] [place] [address] Performed By: #### 2 4323-8 ####[facility] LABCLIA [id number] [place] [address] [place] Sodium [Moles/Vol] 141 mmol/L Normal 136-144 [facility] Comment on above: Order Comment: Speci men Type: BLOOD SPECIMENOrdering Facility: [facility] Address: [address] [place] [address] Performed By: #### 2 4323-8 ####[facility] LABCLIA [id number] [place] [address] [place] Urea nitrogen [Mass/Vol] 22 mg/dL Normal 9-24 [facility] Comment on above: Order Comment: Speci men Type: BLOOD SPECIMENOrdering Facility: [facility] Address: [address] [place] [address] Performed By: #### 2 4323-8 ####[facility] LABCLIA [id number] [place] [id number] [place] OPERATIVE NOon 01-06-2024 OPERATIVE NO HNO ID: [id number] Author: CHARLOTTE LINDSEY MD Service: Urology Author Type: Physician Type: Operative Report Filed: 02/07/2024 09:31 Note Text: UROLOGY OPERATIVE REPORT LOG ID: [id number] Surgery/Procedure Date: 01/06/2024 Incision/Procedure Start Time: 3:15 PM Incision Close/Procedure End Time: 6:38 PM Surgeon(s)/Proceduralist(s) and Math Professor(s): Surgeon(s) and Role: * Charlotte Lindsey MD - Primary * James Fraire MD - Resident - Assisting * Rolf Casey MD - Fellow No Additional Staff Preoperative Diagnosis: Left Renal Mass Postoperative Diagnoses: Left Renal Mass Procedure(s): Laparoscopic Hand Assisted Left Radical nephrectomy Anesthesia: General Findings: Large left upper pole renal mass with extensive neovascularization Indication for procedure: The patient is a 63 year old male with a history of large left renal mass. After treatment options were discussed the patient wished to proceed with Laparoscopic Hand Assisted Left Radical nephrectomy. Full informed consent was obtained and all questions answered prior to the procedure. Procedure Narrative: Patient was brought to the operating room, and multidisciplinary surgical huddle confirmed the correct patient, operative plan, perioperative antibiotics, pertinent medical history, drug allergies, and necessary equipment. General anesthesia was induced and perioperative antibiotics were administered. Patient was placed in modified flank, right side up position, prepped, and draped in the usual sterile fashion. After making a midline periumbilical incision, and entering the intraperitoneal cavity, green Gelport was placed. Two 12 mm port were then inserted under the vision lateral to left rectus muscle. The left colon was mobilized medially. The spleen and splenorenal ligaments were dissected off the upper pole of the kidney and IVC was identified. Ureter was identified and dissected off the Psoas muscle and followed superiorly all the way towards the hilum. Kidney was then dissected off the Psoas superior to the hilum. Hilum was then stapled and divided with a vascular stapler loads x 2. There were extensive parasitic vessels encountered during the medial kidney dissection and required to be taken with Ligasure versus weck clips that resulted in a complex medial and hilar dissection. The superior pole and then lateral attachments of the kidney were then dissected with LigaSure. Kidney was removed by extending the midline incision. The midline fascia was closed with 0 PDS in a bidirectional running fashion. Mag fascia was closed with 3-0 Vicryl suture. The skin was closed using 4-0 subcuticular suture and surgical glue. The other 12 mm portfolio assistant ports were closed with 0-Vicryl utilizing Jonny-phipps device. The patient tolerated the procedure well and was transferred to PACU in stable condition. Dr. Lindsey performed all of the critical portions of the procedure with the assistance of Dr. Casey and . Port placement was performed under Dr. Lindsey direct supervision. Skin closure was performed by Dr. Casey and Dr. Fraire with Dr. Lindsey immediately available. Accidental Punctures or Lacerations: None Estimated Blood Loss: 350 ml Specimens: ID Type Source Tests Collected by Time Destination A : with mass Tissue KIDNEY RADICAL RESECTION LEFT SURGICAL PATHOLOGY Charlotte Lindsey MD 01/06/2024 5:57 PM Implanted Devices: None Drains: 20 Prydeinig Zuniga catheter Complications: None SIGNATURE: Rolf Casey MD DATE: January 07, 2024 TIME: 12:06 PM Normal [facility] SURGICAL PATHOLOGYon 024 BLOCK FOR ADDITIONAL BIOMARKERS/MOLECUL AR STUDIES A8, A13 Normal [facility] Comment on above: Order Comment: Speci men Type: TISSUE SPECIMENOrdering Facility: [facility] Address: [address] [place] [address] Performed By: #### S ####[facility] LABCLIA [id number] [place] [address] [place] CASE REPORT Normal [facility] Comment on above: Order Comment: Speci men Type: TISSUE SPECIMENOrdering Facility: [facility] Address: [address] [place] [address] Result Comment: Surg [facility] Pathology Report Case: [id number] Authorizing Provider: Charlotte Lindsey MD Collected: 01/06/2024 05:57 PM Ordering Location: Admitting Received: 01/06/2024 06:00 PM Pathologist: Dilip Acevedo MD Specimen: KIDNEY RADICAL RESECTION LEFT, with mass Performed By: #### S ####[facility] LABCLIA [id number] [place] [address] [place] CLINICAL HISTORY Normal [facility] Comment on above: Order Comment: Speci men Type: TISSUE SPECIMENOrdering Facility: [facility] Address: [address] [place] [address] Result Comment: Pre- op diagnosis: Renal mass [N28.89] Performed By: #### S ####[facility] LABCLIA [id number] [address] [place] FINAL DIAGNOSIS Normal [facility] Comment on above: Order Comment: Speci men Type: TISSUE SPECIMENOrdering Facility: [facility] Address: [address] [place] [address] Result Comment: Kenia guerrier, left, total nephrectomy: - 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 - Surgical margins are negative. - See synoptic template. ROBERT/LAUREN 01/11/2024 Performed By: #### S ####[facility] LABCLIA [id number] [address] [place] [facility] FINAL PERFORMING LAB Normal [facility] Comment on above: Order Comment: Speci men Type: TISSUE SPECIMENOrdering Facility: [facility] Address: [address] [place] [address] Result Comment: Diag nostic interpretation performed at [facility], [address] [place] [address] CLIA# [id number] Armored Car Guard: Damon Casas M.D. Performed By: #### S ####[facility] LABCLIA [id number] [address] [place] GROSS DESCRIPTION Normal [facility] Comment on above: Order Comment: Speci men Type: TISSUE SPECIMENOrdering Facility: [facility] Address: [address] [place] [address] Result Comment: Kenia GUERRIER RADICAL RESECTION LEFT The specimen consists of a left kidney surrounded by an envelope of fibroadipose tissue measuring 18.0 x 13.0 x 11.0 cm and weighing 1283 g. The kidney measures 12 x 9 x 8 cm. A 13.5 x 12.5 x 10.5 cm mass involves the midportion of the kidney. On section, the tumor mass is irregular, hsu-pink and softened with with irregular yellow areas and hemorrhage. The tumor bulges at the perirenal fat and approaches within 0.1 cm of the soft tissue line of the specimen. The tumor does invade the renal sinus. The tumor is poorly demarcated from the renal parenchyma which appears unremarkable. Satellite nodules of tumor are not present in the renal tissue. Dissection of the renal veins, particularly those draining the area of the mass shows possible intravascular presence of the neoplasm. The adrenal gland is not present. A 8.0 x 0.2 cm segment of ureter is present and is essentially unremarkable. Lymph nodes are not present. Photographs are attached to the case. Smokehouse Worker sections are submitted as follows: A1 ureter margin A2 vascular margin A3-A6 mass with possible renal sinus fat involvement A7-A9 mass with perinephric fat involvement A10-A11 different areas of mass (possible involvement of vessels) A12-A14 mass involving possible vessels A15 uninvolved kidney parenchyma [facility] [place] 07, 2024 11:06 AM Gross examination performed at [facility], [address] [place] [address] Performed By: #### S ####[facility] LABCLIA [id number] [facility] [place] [address] [place] SYNOPTIC REPORT Normal [facility] Comment on above: Order Comment: Speci men Type: TISSUE SPECIMENOrdering Facility: [facility] Address: [address] [place] [address] Result Comment: [place] EY: Nephrectomy KIDNEY: RESECTION - All Specimens 8th Edition - Protocol posted: 05/28/2021 SPECIMEN Procedure: Total nephrectomy Specimen Laterality: Left TUMOR Tumor Focality: Unifocal Tumor Site: Middle Tumor Size: Greatest Dimension (Centimeters): 13.5 cm Additional Dimension (Centimeters): 12.5 cm Additional Dimension (Centimeters): 10.5 cm Histologic Type: Chromophobe renal cell carcinoma Histologic Grade (WHO / ISUP): Not applicable: Chromophobe subtype Tumor Extent: Extends into renal sinus Tumor Extent: Extends into major vein (renal vein or its segmental branches, inferior vena cava) Sarcomatoid Features: Not identified Rhabdoid Features: Not identified Tumor Necrosis: Not identified Lymphovascular Invasion: Present MARGINS Margin Status: All margins negative for invasive carcinoma REGIONAL LYMPH NODES Regional Lymph Node Status: Not applicable (no regional lymph nodes submitted or found) PATHOLOGIC STAGE CLASSIFICATION (pTNM, AJCC 8th Edition) Reporting of pT, pN, and (when applicable) pM categories is based on information available to the pathologist at the time the report is issued. As per the AJCC (Chapter 1, 8th Ed.) it is the managing physician???s responsibility to establish the final pathologic stage based upon all pertinent information, including but potentially not limited to this pathology report. 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 MQ: [id number]_6 CT Radiation dose: Integrated Dose-length product (DLP) for this visit = 292 mGy*cm CT Dose Reduction Employed: Automated exposure control (AEC) Comparison: Abdominal CT from 12/14/2023 RESULT: Limitations: None. Lines, tubes, and devices: None. Lung parenchyma and airways: No consolidation. Tiny calcified granuloma in right lower lobe. No suspicious pulmonary nodule. The central airways are patent. Pleural space: No pleural effusion. No pleural thickening. Lower neck, lymph nodes, and mediastinum: The imaged thyroid gland is normal. No lymphadenopathy in the supraclavicular, axillary, mediastinal, or hilar regions. Heart, pericardium, and thoracic vessels: The thoracic aorta and main pulmonary artery are normal in caliber. The cardiac chambers are normal in size. Minimal coronary artery atherosclerotic calcifications are noted, although the study is not optimized for coronary assessment. No pericardial effusion or thickening. Bones and soft tissues: No destructive bone lesion. Chest wall is unremarkable. Upper abdomen: Partially visualized left renal mass, previously evaluated on abdominal CT. Landscaping And Groundskeeping Laborer (topogram) images: No additional findings. IMPRESSION: No CT evidence of acute abnormality. No findings of metastatic disease in the thorax. Glassblower: PSC[facility] Transcribe Date/Time: Jan 05 2024 3:24P Dictated by : DANIEL LOCKWOOD MD This examination was interpreted and the report reviewed and electronically signed by: DANIEL LOCKWOOD MD on Jan 05 2024 3:29PM EST [id number] Normal [facility] CT Chest WO contraston 01-05 [facility] ECG COMPLETEon 01-05-2024 ECG COMPLETE Ventricular Rate : 6 8 BPM Atrial Rate : 68 BPM P-R Interval : 156 ms QRS Duration : 86 ms Q-T Interval : 368 ms QTC Calculation(Bazett) : 391 ms Calculated P [place] : 68 degrees Calculated R [place] : 68 degrees Calculated T [place] : 50 degrees NORMAL SINUS RHYTHM POSSIBLE LEFT ATRIAL ENLARGEMENT BORDERLINE ECG Confirmed by MARGARITA LANDEROS MD ([id number]) on 01/08/2024 9:05:40 PM NAME : ASHLEY LEDESMA PID : [id number] : 1960 Gender : Male Race : ORD : [id number] Procedure Date : Jan 05 2024 08:47:22 Edit Date : Jan 08 2024 21:05:42 Diagnosis: NORMAL SINUS RHYTHM POSSIBLE LEFT ATRIAL ENLARGEMENT BORDERLINE ECG Confirmed by MARGARITA LANDEROS MD ([id number]) on 01/08/2024 9:05:40 PM Test Reason : Location : 119 : A17 A17 Overread By : MARGARITA LANDEROS MD Edited By : MARGARITA LANDEROS MD Referred By : , Acquired by : BEREKET SINGLETARY Normal [facility] HISTORY PHYSICALon HISTORY PHYSICAL HNO ID: [id number] Author: LEYDA PARKER DO Service: ? Author Type: Resident Type: H&P Filed: 01/05/2024 12:07 Note Text: HISTORY AND PHYSICAL EXAMINATION SERVICE DATE: 01/05/2024 SERVICE TIME: 11:19 AM PRIMARY CARE PHYSICIAN: Adan Lamar MD REASON FOR VISIT: Ashley Ledesma is a 63 year old male who is scheduled for ROBOTIC LAPAROSCOPIC NEPHRECTOMY RADICAL at the request of Dr. Charlotte Lindsey for consultation. My final recommendation will be communicated back to the requesting physician by way of shared medical record or letter. The patient has the following: ACTIVE PROBLEM LIST Ulcer of Esophagus Gout Erectile Dysfunction Benign Prostatic Hyperplasia With Urinary Obstruction Subjective CHIEF COMPLAINT: Pre-operative examination HPI: Ashley Ledesma is a 63 year old male with renal mass who presents to [facility] today for preop exam. Patient is scheduled for the above procedure on 01/06/24 Denies fevers, chills, chest pain, and SOB. No past medical history on file. No past surgical history on file. No family history on file. SOCIAL HISTORY: Social History Tobacco Use Smoking status: Former Types: Cigarettes Smokeless tobacco: Never Tobacco comments: Been over 30 years since had a cigarette Substance Use Topics Alcohol use: Yes Comment: may have a drink 2x per week Drug use: Never MEDICATIONS: Prior to Admission medications as of 01/05/24 1121 Medication Sig Last Dose Taking vibegron (GEMTESA) 75 mg tablet Take by mouth. Taking Yes allopurinol (ZYLOPRIM) 300 mg tablet 1 tablet Orally Once a day for 90 days Taking Yes sildenafil (VIAGRA) 100 mg tablet take 1 tablet by mouth as directed 1 HOUR PRIOR TO SEXUAL ACTIVITY tiZANidine (ZANAFLEX) 4 mg tablet 2 tablets Orally at bedtime for 15 tamsulosin (FLOMAX) 0.4 mg Take 1 capsule by mouth daily at bedtime. No medication comments found. CURRENT ALLERGIES: ALLERGIES No Known Allergies COVID VACCINATION STATUS: Fully vaccinated REVIEW OF SYSTEMS: PAIN ASSESSMENT: General: No weight loss, malaise or fevers. Neuro: No history of TIA's, stroke, ELECTRIC DEICER INSPECTOR tumor, impaired sensorium, hemiplegia, paraplegia or quadraplegia. No neurological symptoms or problems. Respiratory: No history of current cough or dyspnea, or pneumonia in the past 6 weeks. No history of respiratory/pulmonary symptoms or problems. Cardiovascular: No history of HTN requiring medication, no history of angina, CHF, OK, cardiac surgery or stents. Denies rest pain, gangrene or revascularization/amputation for PVD. No history of cardiovascular symptoms or problems. GI: No history of GI symptoms or problems. No history of esophageal varices, recent ascites, or ETOH greater than 2 drinks per day. : No history of dysuria, frequency or incontinence,, stones or chronic kidney disease Endocrine: No history of diabetes. Has not taken steroids within the past 30 days. No history of endocrinological symptoms or problems. Hematology: No history of bleeding or clotting disorder. Pt is not taking anti-coagulation or platelet medications. No history of hematological symptoms or problems. Musculoskeletal: R hip arthritis Objective PHYSICAL EXAM: VITALS: BP 145/84 Pulse 69 Temp (Src) 97.4 (Temporal) Ht 5' 10 (1.78m) Wt 188 lb 7.9 oz (85.5kg) SpO2 99% BMI 27.05 kg/(m2). General: Alert and oriented Skin: Normal color, no rash, no lesions. HEENT: EOM, pupils equal, round Cardiovascular: Normal S1 AND S2, no rubs, murmurs or gallops. No JVD. Pulse regular. Lungs: Normal breath sounds, no wheezes or crackles. Abdomen: Soft, non-tender, no rigidity. Extremities: No deformity, no edema or tenderness, no joint swelling or clubbing. Neurological: Normal cognition and motor skills. Diagnostic tests reviewed for today's visit: Lab Value Units Date High Low HB 13.4 g/dL 01/03/2024 17.0 13.0 HCT 42.3 % 01/03/2024 51.0 39.0 WBC 5.60 k/uL 01/03/2024 11.00 3.70 PLT 180 k/uL 01/03/2024 400 150 NA 143 mmol/L 01/03/2024 144 136 K 4.3 mmol/L 01/03/2024 5.1 3.7 GLUC 105 mg/dL 01/03/2024 99 74 BUN 22 mg/dL 01/03/2024 24 9 CREAT 1.35 mg/dL 01/03/2024 1.22 0.73 PTSEC 10.9 sec 01/03/2024 13.0 9.7 INR 1.0 no uni* 01/03/2024 1.3 0.9 APTT 27.9 sec 01/03/2024 32.4 23.0 ALT 11 U/L 01/03/2024 54 10 AST 24 U/L 01/03/2024 40 14 TBILI 0.8 mg/dL 01/03/2024 1.3 0.2 TSH No results within date range. Lab Value Units Date High Low HCGQT No results within date range. UHCG No results within date range. HCG, BODY* No results within date range. Lab Value Units Date High Low ABORHD No results within date range. ABSCREEN No results within date range. No results found for: HBA1C Most recent labs Assessment/Plan Gout Takes allopurinol Last flare 6 months ago Feels gout well-controlled on Rx Ulcer of esophagus Per patient, he was found to have an esophageal ulcer during a scope for a retained foreign body. He clements (more content not included)... Normal [facility] NM RENAL FLOW/FXN WO PHARMon 01-05-2024 NM RENAL FLOW/FXN WO PHARM * * *Final Report* * * DATE OF EXAM: Jan 05 2024 1:23PM [facility] 0036 - NE RENAL FLOW/FXN WO PHARM / PROCEDURE REASON: Acquired cyst of kidney * * * * Physician Interpretation * * * * RENAL SCAN: CLINICAL HISTORY: 63 years old Male patient with history of kidney cysts. TECHNIQUE: 11.3 millicuries Tc-99m MAG3 IV. Imaging followed in the posterior projection for 30 minutes. RESULT: RENAL PERFUSION: Perfusion is prompt and relatively symmetric. RENAL FUNCTION: Initial uptake is normal with cortical transit occurring within 10 minutes bilaterally, which is within normal limits. By the end of this non-Lasix augmented study, there is adequate spontaneous drainage from the right kidney, delayed in the left kidney. The left kidney contribution to total renal function is 49% with 51% from the right kidney. IMPRESSION: 1. Normal right renal perfusion and function. 2. Enlarged left kidney with preserved function, but delayed drainage. 3. Split renal function: Left- 49%; right- 51% Glassblower: [facility] Transcribe Date/Time: Jan 05 2024 3:48P Dictated by : YING HERNANDEZ MD This examination was interpreted and the report reviewed and electronically signed by: YING HERNANDEZ MD on Jan 05 2024 3:51PM EST [id number] Normal [facility] No Panel Informationon 01-05 [facility] MR Kidney WO and W contrast Karen 01-04-2024 [facility] MRI KIDNEY WO/W IVCONon 02-0 MRI KIDNEY WO/W IVCON * * *Final Report* * * DATE OF EXAM: Jan 04 2024 10:39AM [facility] 0721 - MRI KIDNEY WO/W IVCON / PROCEDURE REASON: Other specified disorders of kidney and ureter * * * * Physician Interpretation * * * * EXAMINATION: MRI ABDOMEN WITHOUT AND WITH IV CONTRAST CLINICAL HISTORY: Renal mass characterization. TECHNIQUE: A renal MRI was performed on a 1.5 T MR system utilizing the torso phased-array coil. Pulse sequences included: axial precontrast T1 weighted in- and [id number], axial and coronal HASTE, axial DWI with creation of ADC map; axial and coronal T1-VIBE before and after the administration of intravenous gadolinium chelate. Multiple post processing techniques were performed. MQ: [id number]_1 Contrast: IV administration of 18 ml of Dotarem COMPARISON: CT 12/14/2023 RESULT: Kidneys, adrenals and ureters: Right kidney: Benign parapelvic and cortical cysts. No solid mass. Right renal vasculature - Arterial: single. No early branch (< 1cm). - Venous: single. Right ureter: Single ureter. No hydronephrosis. Right adrenal: Normal, no nodules or thickening Left kidney: 12.7 x 11.2 x 12.1 cm (CC x AP x T) T2 isointense, enhancing mass with central necrosis and internal hemorrhage centered in the upper pole of the left kidney with invasion of the upper pole renal sinus fat. Mass effect on the collecting system with moderate hydronephrosis similar to prior. The mass exerts mass effect upon the pancreatic tail and inferior pole the spleen. The descending colon is displaced anteriorly. Left renal vasculature - Arterial: single. No early branch (< 1cm). - Venous: conventional, anterior to the aorta. Left ureter: Single ureter. Moderate hydronephrosis. Left adrenal: Normal, no nodules or thickening Retroperitoneal lymphadenopathy and IV involvement: Mass effect on the left renal vein. Left renal vein is patent where visualized. No retroperitoneal lymphadenopathy. Abdomen: Liver: Normal morphology. No hepatic steatosis. 1.0 cm right lobe cyst. Biliary: No bile duct dilation. Gallbladder is normal. Spleen: No mass. No splenomegaly. Pancreas: Pancreatic cystic lesions, for reference: 2.0 cm in the body (8:24), 1.6 cm lesion in the head (3:38), and 1.3 cm lesion in the head/uncinate process (3:36). No suspicious enhancement. No duct dilation. GI tract: No dilation or wall thickening. Lymph nodes (other): No abdominal or pelvic lymphadenopathy. Mesentery/Peritoneum: No ascites or mass. Retroperitoneum: Left renal mass described above. Otherwise, no mass. Vasculature: The celiac axis and SMA are patent. The portal vein and branches, splenic vein, SMV, and hepatic veins are patent. No abdominal aortic aneurysm. Bones/Soft Tissues: No significant finding. Lower thorax: Unremarkable. IMPRESSION: 12.7 cm left upper pole renal neoplasm with invasion of the renal sinus fat. No vascular involvement. No retroperitoneal lymphadenopathy. No metastatic disease in the visualized upper abdomen. Glassblower: PSCB Transcribe Date/Time: Jan 04 2024 10:44A Dictated by : RAMONITA SHEEHAN DO This examination was interpreted and the report reviewed and electronically signed by: SHARONDA GALLAGHER MD on Jan 04 2024 12:58PM EST [id number] Normal [facility] TYPE AND SCREEN,30 DAYon ABO group Nom (Bld) O [facility] Blood group antibody screen Ql Negative [facility] HIstorical Ab Scr Status Negative [facility] Rh Nom (Bld) Positive [facility] CBC panel Auto (Bld)on 01-03 Erythrocyte distribution width (RBC) [Ratio] 14.4 % 11.5 - 15.0 % [facility] Hematocrit (Bld) [Volume fraction] 42.3 % 39.0 - 51.0 % [facility] Hemoglobin (Bld) [Mass/Vol] 13.4 g/dL 13.0 - 17.0 g/dL [facility] MCH (RBC) [Entitic mass] 27.5 pg 26.0 - 34.0 pg [facility] MCHC (RBC) [Mass/Vol] 31.7 g/dL 30.5 - 36.0 g/dL [facility] MCV (RBC) [Entitic vol] 86.9 fL 80.0 - 100.0 fL [facility] Nucleated RBC (Bld) [#/Vol] <0.01 k/uL [facility] Platelet mean volume (Bld) [Entitic vol] 12.9 fL High 9.0 - 12.7 fL [facility] Platelets (Bld) [#/Vol] 180 10*3/uL 150 - 400 k/uL [facility] RBC (Bld) [#/Vol] 4.87 10*6/uL 4.20 - 6.0 0 m/uL [facility] WBC (Bld) [#/Vol] 5.60 10*3/uL 3.70 - 11. 00 k/uL [facility] Erythrocyte distribution width (RBC) [Ratio] 14.4 % Normal 11.5-15.0 [facility] Comment on above: Order Comment: Speci men Type: BLOOD SPECIMENOrdering Facility: [facility] Address: [address] [place] [address] Performed By: #### 5 8410-2 ####[facility] LABCLIA [id number] [place] [address] Hematocrit (Bld) [Volume fraction] 42.3 % Normal 39.0-51.0 [facility] Comment on above: Order Comment: Speci men Type: BLOOD SPECIMENOrdering Facility: [facility] Address: [address] [place] [address] Performed By: #### 5 8410-2 ####[facility] LABCLIA [id number] [place] [address] Hemoglobin (Bld) [Mass/Vol] 13.4 g/dL Normal 13.0-17.0 [facility] Comment on above: Order Comment: Speci men Type: BLOOD SPECIMENOrdering Facility: [facility] Address: [address] [place] [address] Performed By: #### 5 8410-2 ####[facility] LABCLIA [id number] [place] [address] MCH (RBC) [Entitic mass] 27.5 pg Normal 26.0-34.0 [facility] Comment on above: Order Comment: Speci men Type: BLOOD SPECIMENOrdering Facility: [facility] Address: [address] [place] [address] Performed By: #### 5 8410-2 ####[facility] LABCLIA [id number] [place] [address] MCHC (RBC) [Mass/Vol] 31.7 g/dL Normal 30.5-36.0 [facility] Comment on above: Order Comment: Speci men Type: BLOOD SPECIMENOrdering Facility: [facility] Address: [address] [place] [address] Performed By: #### 5 8410-2 ####[facility] LABIA [id number] [place] [address] MCV (RBC) [Entitic vol] 86.9 fL Normal 80.0-100.0 [facility] Comment on above: Order Comment: Speci men Type: BLOOD SPECIMENOrdering Facility: [facility] Address: [address] [place] [address] Performed By: #### 5 8410-2 ####[facility] LABIA [id number] [place] [address] Nucleated RBC (Bld) [#/Vol] 10*3/uL Normal <0.01 [facility] Comment on above: Order Comment: Speci men Type: BLOOD SPECIMENOrdering Facility: [facility] Address: [address] [place] [address] Performed By: #### 5 8410-2 ####[facility] LABIA [id number] [place] [address] Platelet mean volume (Bld) [Entitic vol] 12.9 fL High 9.0-12.7 [facility] Comment on above: Order Comment: Speci men Type: BLOOD SPECIMENOrdering Facility: [facility] Address: [address] [place] [address] Performed By: #### 5 8410-2 ####[facility] LABIA [id number] [place] [address] Platelets (Bld) [#/Vol] 180 10*3/uL Normal 150-400 [facility] Comment on above: Order Comment: Speci men Type: BLOOD SPECIMENOrdering Facility: [facility] Address: [address] [place] [address] Result Comment: No c lot detected.Results checked and verified. Performed By: #### 5 8410-2 ####[facility] LABCLIA [id number] [place] [address] RBC (Bld) [#/Vol] 4.87 10*6/uL Normal 4.20-6.00 [facility] Comment on above: Order Comment: Speci men Type: BLOOD SPECIMENOrdering Facility: [facility] Address: [address] [place] [address] Performed By: #### 5 8410-2 ####[facility] LABCLIA [id number] [place] [address] WBC (Bld) [#/Vol] 5.60 10*3/uL Normal 3.70-11.00 [facility] Comment on above: Order Comment: Speci men Type: BLOOD SPECIMENOrdering Facility: [facility] Address: [address] [place] [address] Performed By: #### 5 8410-2 ####[facility] LABCLIA [id number] [place] [address] CONFIRM BLOOD TYPEon 024 ABO group Nom (Bld) O [facility] Rh Nom (Bld) Positive [facility] ABO O Normal [facility] Comment on above: Order Comment: Speci men Type: BLOOD SPECIMENOrdering Facility: [facility] Address: [address] [place] [address] Performed By: #### C ONABO ####CC MAIN BLOOD BANKCLIA [id number] [place] [address] [place] Rh Nom (Bld) Positive Normal [facility] Comment on above: Order Comment: Speci men Type: BLOOD SPECIMENOrdering Facility: [facility] Address: [address] [place] [address] Performed By: #### C ONABO ####[facility] MAIN BLOOD BANKCLIA [id number] [facility] [place] [id number] [address] [facility] Comprehensive metabolic 2000 panelon 01-03-2024 Albumin [Mass/Vol] 5.0 g/dL High 3.9 - 4.9 g/dL [facility] ALP [Catalytic activity/Vol] 81 U/L 38 - 113 U/L [facility] ALT [Catalytic activity/Vol] 11 U/L 10 - 54 U/L [facility] Anion gap [Moles/Vol] 13 mmol/L 9 - 18 mmol/L [facility] AST [Catalytic activity/Vol] 24 U/L 14 - 40 U/L [facility] Bilirubin [Mass/Vol] 0.8 mg/dL 0.2 - 1.3 mg/dL [facility] Calcium [Mass/Vol] 10.5 mg/dL High 8.5 - 10. 2 mg/dL [facility] Chloride [Moles/Vol] 105 mmol/L 97 - 105 mmol/L [facility] CO2 [Moles/Vol] 25 mmol/L 22 - 30 mmol/L [facility] Creatinine [Mass/Vol] 1.35 mg/dL High 0.73 - 1.22 mg/dL [facility] Estimated Glomerular Filtration Rate 59 mL/min/1.73m Low >=60 mL/min/1.73m [facility] Glucose [Mass/Vol] 105 mg/dL High 74 - 99 mg/dL [facility] Potassium [Moles/Vol] 4.3 mmol/L 3.7 - 5.1 mmol/L [facility] Protein [Mass/Vol] 7.4 g/dL 6.3 - 8.0 g/dL [facility] Sodium [Moles/Vol] 143 mmol/L 136 - 144 mmol/L [facility] Urea nitrogen [Mass/Vol] 22 mg/dL 9 - 24 mg/dL [facility] Albumin [Mass/Vol] 5.0 g/dL High 3.9-4.9 [facility] Comment on above: Order Comment: Speci men Type: BLOOD SPECIMENOrdering Facility: [facility] Address: [address] [place] [address] Performed By: #### 2 4323-8 ####[facility] LABCLIA [id number] [place] [address] ALP [Catalytic activity/Vol] 81 U/L Normal 38-113 [facility] Comment on above: Order Comment: Speci men Type: BLOOD SPECIMENOrdering Facility: [facility] Address: [address] [place] [address] Performed By: #### 2 4323-8 ####[facility] LABCLIA [id number] [place] [address] ALT [Catalytic activity/Vol] 11 U/L Normal 10-54 [facility] Comment on above: Order Comment: Speci men Type: BLOOD SPECIMENOrdering Facility: [facility] Address: [address] [place] [address] Performed By: #### 2 4323-8 ####[facility] LABCLIA [id number] [place] [address] Anion gap [Moles/Vol] 13 mmol/L Normal 9-18 [facility] Comment on above: Order Comment: Speci men Type: BLOOD SPECIMENOrdering Facility: [facility] Address: [address] [place] [address] Performed By: #### 2 4323-8 ####[facility] LABCLIA [id number] [place] [address] AST [Catalytic activity/Vol] 24 U/L Normal 14-40 [facility] Comment on above: Order Comment: Speci men Type: BLOOD SPECIMENOrdering Facility: [facility] Address: [address] [place] [address] Performed By: #### 2 4323-8 ####[facility] LABCLIA [id number] [place] [address] Bilirubin [Mass/Vol] 0.8 mg/dL Normal 0.2-1.3 [facility] Comment on above: Order Comment: Speci men Type: BLOOD SPECIMENOrdering Facility: [facility] Address: [address] [place] [address] Performed By: #### 2 4323-8 ####[facility] LABCLIA [id number] [place] [address] Calcium [Mass/Vol] 10.5 mg/dL High 8.5-10.2 [facility] Comment on above: Order Comment: Speci men Type: BLOOD SPECIMENOrdering Facility: [facility] Address: [address] [place] [address] Performed By: #### 2 4323-8 ####[facility] LABCLIA [id number] [place] [address] Chloride [Moles/Vol] 105 mmol/L Normal 97-105 [facility] Comment on above: Order Comment: Speci men Type: BLOOD SPECIMENOrdering Facility: [facility] Address: [address] [place] [address] Performed By: #### 2 4323-8 ####[facility] LABCLIA [id number] [place] [address] CO2 [Moles/Vol] 25 mmol/L Normal 22-30 [facility] Comment on above: Order Comment: Speci men Type: BLOOD SPECIMENOrdering Facility: [facility] Address: [address] [place] [address] Performed By: #### 2 4323-8 ####[facility] LABCLIA [id number] [place] [address] Creatinine [Mass/Vol] 1.35 mg/dL High 0.73-1.22 [facility] Comment on above: Order Comment: Speci men Type: BLOOD SPECIMENOrdering Facility: [facility] Address: [address] [place], [place] [id number] Performed By: #### 2 4323-8 ####[facility] LABCLIA [id number] [place] [address] Creatinine and Glomerular filtration rate.predicted panel (S/P/Bld) 59 mL/min/1.73m??? Low >=60 [facility] Comment on above: Order Comment: Tianna yuan Type: BLOOD SPECIMENOrdering Facility: [facility] Address: [address] [place] [address] Result Comment: Alexandra mated Glomerular Filtration Rate (eGFR) is calculated using the 2020 CKD-EPI creatinine equation. This equation utilizes serum creatinine, sex, and age as parameters. The creatinine assay has traceable calibration to isotope dilution-mass spectrometry. Refer to KDIGO guidelines for clinical interpretation. In patients with unstable renal function, e.g. those with acute kidney injury, the eGFR may not accurately reflect actual GFR. Performed By: #### 2 4323-8 ####[facility] LABCLIA [id number] [place] [address] Glucose [Mass/Vol] 105 mg/dL High 74-99 [facility] Comment on above: Order Comment: Tianna yuan Type: BLOOD SPECIMENOrdering Facility: [facility] Address: [address] [place], [place] [id number] Result Comment: The [place] Diabetes Association (ADA) provides guidance for cutoff values for fasting glucose and random glucose. The ADA defines fasting as no caloric intake for at least 8 hours. Fasting plasma glucose results between 100 to 125 mg/dL indicate increased risk for diabetes (prediabetes). Fasting plasma glucose results greater than or equal to 126 mg/dL meet the criteria for diagnosis of diabetes. In the absence of unequivocal hyperglycemia, results should be confirmed by repeat testing. In a patient with classic symptoms of hyperglycemia or hyperglycemic crisis, random plasma glucose results greater than or equal to 200 mg/dL meet the criteria for diagnosis of diabetes. Reference: Standards of Medical Care in Diabetes 2016, [place] [employer]. Diabetes Care. 2016.39(Suppl 1). Performed By: #### 2 4323-8 ####[facility] LABCLIA [id number] [place] [address] Potassium [Moles/Vol] 4.3 mmol/L Normal 3.7-5.1 [facility] Comment on above: Order Comment: Tianna yuan Type: BLOOD SPECIMENOrdering Facility: [facility] Address: [address] [place] [address] Performed By: #### 2 4323-8 ####[facility] LABCLIA [id number] [place] [address] Protein [Mass/Vol] 7.4 g/dL Normal 6.3-8.0 [facility] Comment on above: Order Comment: Speci men Type: BLOOD SPECIMENOrdering Facility: [facility] Address: [address] [place] [address] Performed By: #### 2 4323-8 ####[facility] LABCLIA [id number] [place] [address] Sodium [Moles/Vol] 143 mmol/L Normal 136-144 [facility] Comment on above: Order Comment: Speci men Type: BLOOD SPECIMENOrdering Facility: [facility] Address: [address] [place] [address] Performed By: #### 2 4323-8 ####[facility] LABCLIA [id number] [place] [address] Urea nitrogen [Mass/Vol] 22 mg/dL Normal 9-24 [facility] Comment on above: Order Comment: Speci men Type: BLOOD SPECIMENOrdering Facility: [facility] Address: [address] [place] [address] Performed By: #### 2 4323-8 ####[facility] LABCLIA [id number] [place] [address] PT panel Coag (PPP)on 2023 INR Coag (PPP) [Relative time] 1.0 {INR} Normal 0.9-1.3 [facility] Comment on above: Order Comment: Speci men Type: BLOOD SPECIMENOrdering Facility: [facility] Address: [address] [place] [address] Result Comment: Yulia min K Antagonist (VKA) Therapeutic Range: INR 2 to 3 (Target INR of 2.5) Note: For patients treated with VKA drugs, such as warfarin, the [place] [employer] 2012 Guideline recommends a therapeutic INR range of 2 to 3 (target INR of 2.5). This recommendation includes high-risk patients with antiphospholipid syndrome with previous arterial or venous thromboembolism, current-generation mechanical or bioprosthetic aortic heart valve replacement. Note: Patients with mechanical aortic valve replacement and additional risk factors for thromboembolic events (atrial fibrillation, previous thromboembolism, LV dysfunction, hypercoagulable conditions) or an older generation mechanical AVR (i.e., ball in-Cage) or any mechanical MVR should have a INR therapeutic range of 2.5 to 3.5 (target INR of 3). Erum GH, et al. Chest 2012, 141:7S-47S Jaya RA, et al. [facility] 2017, 70: 252-289 Performed By: #### 3 4528-0, 74082-2 ####[facility] LABCLIA [id number] [place] [address] [place] PT Coag (PPP) [Time] 10.9 s Normal 9.7-13.0 [facility] Comment on above: Order Comment: Tianna yuan Type: BLOOD SPECIMENOrdering Facility: [facility] Address: [address] [place] [address] Performed By: #### 3 4528-0, 92459-0 ####[facility] LABCLIA [id number] [place] [address] [place] TYPE AND SCREEN,30 DAYon ABO O Normal [facility] Comment on above: Order Comment: Tianna yuan Type: BLOOD SPECIMEN [facility] Address: [address] [place] [address] Performed By: #### T SCR30 #### [facility] CLIA [id number] [address] [place] [address] [place] HISTORICAL AB SCR STATUS Negative Normal [facility] Comment on above: Order Comment: Tianna yuan Type: BLOOD SPECIMEN [facility] Address: [address] [place] [address] Performed By: #### T SCR30 #### [facility] CLIA [id number] [address] [place] [address] [place] Rh Nom (Bld) Positive Normal [facility] Comment on above: Order Comment: Speci men Type: BLOOD SPECIMEN [facility] Address: [address] [place] [address] Performed By: #### T SCR30 #### [facility] B[facility]OD B[facility] CLIA [id number] [address] [place] [address] [place] aPTT PPPon 01-03-2024 aPTT Coag (PPP) [Time] 27.9 s Normal 23.0-32.4 [facility] Comment on above: Order Comment: Speci men Type: BLOOD SPECIMENOrdering Facility: [facility] Address: [address] [place] [address] Result Comment: Froz en Plasma Aliquot Performed By: #### 3 4528-0, 68726-2 ####[facility] LABCLIA [id number] [address] OF [facility] CNOVon 12-21-2023 CNOV Office Visit (UROLMN ) ASHLEY LEDESMA ([id number]) 1960 M Date Time Provider Department 12/21/23 1:50 PM CHARLOTTE LINDSEY UROELVAN During your visit today, we recorded the following information about you: Charlotte Lindsey MD 01/30/2024 3:01 AM Signed Referring Provider: Self Chief Complaint: renal mass HPI Ashley Ledesma is a 63 year old male with a history of elevated PSA, BPH, and bladder cancer who presents for renal mass evaluation. 12/14/2023 CT A/P showed 15.0 cm renal mass on left Kidney. Mild hydronephrosis and perinephric fat stranding also present on left kidney. Pt also with hx of elevated PSA with PSAs around 3.5 ng/mL. His most recent PSA was 3.42ng/mL (07/08/23), previous was 3.54 ng/mL (06/11/2022). S/p neg TRUS/bx 07/2019. For bladder cancer, he is s/p TURBT in 2014 and has been undergoing surveillance cysto's which have been negative. Most recent cysto 11/10/22 negative, moderate trabeculation and most recent FISH/cytol 11/10/22 negative. PMH: BPH s/p TURP (2014), bladder cancer s/p TURBT (2014), gross hematuria, elevated PSA, sleep apnea, ED, T2DM, esophageal ulcer PSH: no abdominal surgeries Meds: ASA81, Sildenafil, Tamsulosin Interval Hx: Follows with Dr. Davey Jara for his urologic history. CT A/P was done for gross hematuria work-up. He had cystoscopy which was negative. He has not had chest imaging. Patient is asymptomatic at this time other than intermittent hematuria. He endorses some lower right abdominal discomfort. No family history of kidney cancer. No reported history of kidney issues. 1-Duration: 2023 2-Location: kidney 3-Severity: see pathology 4-Quality: Not applicable 5-Context: Imaging 6-Timing: N/A 7-Modifying factors: No treatment prior to referral 8-Associated signs AND symptoms: no additional symptoms Family History of Genitourinary Cancer: No LABS 07/10/21 - 3.52 06/11/22 - 3.54 07/08/23 - 3.42 No results found for: CREAT No results found for: PSA IMAGING CT ABD/PEL: 12/14/2023 IMPRESSION: 1. Large mass in the interpolar region of the left kidney, concerning for a large renal cell carcinoma. 2. Mild hydronephrosis in the upper pole the left kidney due to mass effect. 3. Perinephric fat stranding present about the left kidney, which may be due to edema or reactive changes. 4. No lymphadenopathy identified. 5. Prostatomegaly. 6. Moderate stool burden. REVIEW OF SYSTEMS: GENERAL: Negative for fevers, chills, or night sweats. HEENT: Negative for sudden vision or hearing changes. RESPIRATORY: Negative for cough or shortness of breath. CARDIAC: Negative for chest pain, palpitations, murmurs, or syncopal episodes. GASTROINTESTINAL: Negative for diarrhea, constipation, abdominal pain and poor appetite. GENITOURINARY: See HPI. MUSCULOSKELETAL: Negative Bone Aches/pain NEUROLOGIC: Negative for dizziness, headache, weakness or numbness. HEMATOLOGIC: Negative for bleeding or easy bruising. SKIN: Negative for rashes or other skin changes. No past medical history on file. No family history on file. PHYSICAL EXAMINATION General appearance: Well appearing, alert, in no acute distress, and well-hydrated, well nourished Back: no pain to palpation over spine or costovertebral angles, motor and sensory appear to be normal Lungs: Breathing comfortably on room air Heart: deferred Abdomen: soft, non-tender, non-distended. No scars. Palpable mass with deep palpation of left abdomen/flank Extremities: Extremities normal. No deformities, edema, or skin discoloration. Musculoskeletal: No joint swelling, deformity, or tenderness Genitourinary: deferred Assessment 63 y/o M w/ history of BPH and bladder mass (patient reports biopsy was negative) with gross hematuria and CT demonstrating 15cm left renal mass with no lymphadenopathy or evidence of metastatic disease Plan -Imaging reviewed with the patient. Discussed that this is very likely kidney cancer and I recommend robotic left radical nephrectomy. Discussed risks of surgery including but not limited to bleeding, infection, damage to surrounding organs. Will check CT Chest w/o IV contrast for completion of metastatic work-up as well as MRI of the kidney to evaluate for any renal vein or IVC involvement. Discussed that he could require adjuvant therapy after surgery but this would be dependent on pathology report. Discussed possible conversion to open Schedule robotic left nephrectomy on 01/06/2024. Patient will need labs, EKG, PACC, CT Chest w/o IV contrast, renal scan w/o lasix and MRI Kidney w/wo IV Contrast for pre ops prior. Scribe Attestation: By signing my name below, I, Sultana Arevalo, attest that this documentation has been prepared under the direction and in the presence of Dr. Charlotte Lindsey MD. Electronically signed: Zach Hargrove, December 21, 2023 11:10 AM (more content not included)... Normal [facility], REFLEX MICROSCOP ICon 12-21-2023 Bilirubin Ql (U) Negative Normal Negative [facility] Comment on above: Order Comment: Speci men Type: URINE SPECIMENOrdering Facility: [facility] Address: [address] [place] [address] Performed By: #### L [id number] ####[facility] LABCLIA [id number] [place] [address] [place] Clarity (Unsp spec) Clear Normal Clear [facility] Comment on above: Order Comment: Speci men Type: URINE SPECIMENOrdering Facility: [facility] Address: [address] [place] [address] Performed By: #### L [id number] ####[facility] LABCLIA [id number] [place] [address] [place] Color (U) Light Yellow Normal Yellow [facility] Comment on above: Order Comment: Speci men Type: URINE SPECIMENOrdering Facility: [facility] Address: [address] [place] [address] Performed By: #### L [id number] ####[facility] LABCLIA [id number] [place] [address] [place] Glucose Test strip (U) [Mass/Vol] Negative Normal Trace, Negative [facility] Comment on above: Order Comment: Speci men Type: URINE SPECIMENOrdering Facility: [facility] Address: [address] [place] [address] Performed By: #### L [id number] ####[facility] LABCLIA [id number] [place] [address] [place] Hemoglobin Ql (U) Negative Normal Negative, Trace [facility] Comment on above: Order Comment: Speci men Type: URINE SPECIMENOrdering Facility: [facility] Address: [address] [place] [address] Performed By: #### L [id number] ####[facility] LABCLIA [id number] [place] [address] [place] Ketones Ql (U) Negative Normal Negative, Trace [facility] Comment on above: Order Comment: Speci men Type: URINE SPECIMENOrdering Facility: [facility] Address: [address] [place] [address] Performed By: #### L [id number] ####[facility] LABCLIA [id number] [place] [address] [place] Leukocyte esterase Test strip Ql (U) Negative Normal Negative, 25 [place]/uL [facility] Comment on above: Order Comment: Speci men Type: URINE SPECIMENOrdering Facility: [facility] Address: [address] [place] [address] Performed By: #### L [id number] ####[facility] LABCLIA [id number] [place] [address] [place] Nitrite Ql (U) Negative Normal Negative [facility] Comment on above: Order Comment: Speci men Type: URINE SPECIMENOrdering Facility: [facility] Address: [address] [place] [address] Performed By: #### L [id number] ####[facility] LABCLIA [id number] [place] [address] [place] pH (U) 6.0 [pH] Normal 5.0-8.0 [facility] Comment on above: Order Comment: Speci men Type: URINE SPECIMENOrdering Facility: [facility] Address: [address] [place] [address] Performed By: #### L [id number] ####[facility] LABCLIA [id number] [place] [address] [place] Protein (U) [Mass/Vol] Negative Normal Trace, Negative [facility] Comment on above: Order Comment: Speci men Type: URINE SPECIMENOrdering Facility: [facility] Address: [address] [place] [address] Performed By: #### L [id number] ####[facility] LABCLIA [id number] [place] [address] [place] Specific gravity (U) [Rel density] 1.009 Normal 1.005-1.030 [facility] Comment on above: Order Comment: Speci men Type: URINE SPECIMENOrdering Facility: [facility] Address: [address] [place] [address] Performed By: #### L [id number] ####[facility] LABCLIA [id number] [place] [address] [place] Urobilinogen Ql (U) Negative Normal Negative [facility] Comment on above: Order Comment: Speci men Type: URINE SPECIMENOrdering Facility: [facility] Address: [address] [place] [address] Performed By: #### L [id number] ####[facility] LABCLIA [id number] [place] [address] [place] Lab Reportson 12-16-2023 Lab Reports [id number]#1.00TIFF Normal [facility] RAD - CT Reporton 12-16-2023 RAD - CT Report [id number]#1.00TIFF Normal [facility] RAD - CT Reporton 12-14-2023 RAD - CT Report [id number]#1.00TIFF Normal [facility] UroVysion Fish and Urine Cyt o ([facility])on 12-07-2023 [facility]ISH & UC Diagnosis Info Invalid Interpretation Code [facility] Comment on above: Result Comment: A:Ur ine,Urine:Voided [...] correlated with cytology and cystoscopy results.* CPT 24406, 37426. Microscopic Notes - Microscopic Notes - Abnormal cells 9p21 deletions: Abnormal cells aneploid events: Total cells analyzed: 84 Hematuria: Gross Description Site ID:A color Yellow fixative Alcohol Received 110 mls of clear yellow fluid with the patient's name and, Urine on the vial. Electronically signed by : on: 12/07/2023 08:46:27 Performed By: #### 1 [id number] #### [facility] Laboratory [address] [place] [address] Consent for Procedure/Surger yon 12-01-2023 Consent for Procedure/Surgery [id number]#1.00TIFF Normal [facility] Ambulatory Visit Summaryon 0 11-30-2023 Ambulatory Visit Summary BALTAZARASHLEY :1960 Visit Date:11/30/2023 Ambulatory Visit Instructions Your Diagnosis Gross hematuria Urinary retention Personal history of bladder cancer BPH with urinary obstruction Anticoagulated Erectile dysfunction Elevated PSA Other obstructive and reflux uropathy Your Care Team Attending Physician - Davey JARA MD Primary Care Physician - Adan Lamar MD This Is Your Medications List [...] [facility] Patient Educationon 11-30-19 24 Patient Education Urology Benign Prostatic Hyperplasia Benign [...] Follow these instructions at home: ? Take hzcx-yvu-rlfqjnv and prescription medicines only as told by [...] the medicine (more content not included)... Normal [facility] UroVysion Fish and Urine Cyt o ([facility])on 11-30-2023 [facility] Method of Extraction Voided Normal [facility] Comment on above: Performed By: #### 1 [id number] #### [facility] [address] [place] [address] [facility] Number of Jars 1 Invalid Interpretation Code [facility] Comment on above: Performed By: #### 1 [id number] #### [facility] [address] [place] [address] [facility] Specimen Urine Normal [facility] Comment on above: Performed By: #### 1 [id number] #### [facility] [address] [place] [address] [facility] Type of Service Technical Only Normal [facility] Comment on above: Performed By: #### 1 [id number] #### [facility] [address] [place] [address] Urology Office/Clinic Noteon 11-30-2023 Urology Office/Clinic Note [...] get a CT scan done soon at [facility]. Will call pt with results. 2. Urinary retention (R33.9: Retention of urine, unspecified) Pt had called into the office on 11/23/23 stating he had gone to [facility] ER that morning due to not [...] leaking. PVR 38 cc (at prior OV) [facility] ER Visit 11/23/23 - c/o retention, [...] dose. Call for refills. 5. Anticoagulated (Z79.01: senior care (current) use of anticoagulants) Takes 81 mg ASA daily. 6. Erectile dysfunction (N52.9: Male erect (more content not included)... Normal [facility] Comment on above: Result Comment: Elec tronically Signed By: Davey JARA MD\.br\Date and Time Signed: 11/30/23 14:10 EST\.br\Electronically Co-Signed By: Cristal Dunn\.br\Date and Time Co-Signed: 11/30/23 14:08 EST Ambulatory Visit Summaryon 1 Ambulatory Visit Summary ASHLEY LEDESMA :1960 Visit Date:11/26/2023 Ambulatory Visit Instructions Your Care Team Attending Physician - Davey JARA MD Primary Care Physician - Adan Lamar MD This Is Your Medications List [...] Follow-Up Appointments Wednesday 1:15 PM EST With: Davey JARA MD Where: [facility] [address] [address]- \.br \ Medications\ .br\ What How Much [...] choosing us for your care.\.br\ \.br \ [facility] Provider Letteron 11-26-2023 Provider Letter (Inserted Image. Shannan ble to display) November 26, 2023 ASHLEY LEDESMA [address] [place] [address] : 1960 To Whom It May Concern, Please excuse above patient from work. Date of Illness: From: _11/23/23 To: _11/29/22 May Return to Work On:11/30/22 Restrictions: _None Sincerely, Dr. Davey Jara MD [facility] [address] [place] [address] Normal [facility] UroVysion Fish and Urine Cyt o ([facility])on 11-17-2023 [facility] UC Diagnosis Info Invalid Interpretation Code [facility] Comment on above: Result Comment: A:Ur ine,Urine:Voided [...] correlated with cytology and cystoscopy results.* CPT 93721, 18673 Microscopic Notes - Microscopic Notes - Abnormal cells 9p21 deletions: Abnormal cells aneploid events: Total cells analyzed: 36 Hematuria: Gross Description Site ID:A color Yellow fixative Alcohol Received 110 mls of clear yellow fluid with the patient's name and, Urine on the vial. Electronically signed by : on: 11/17/2023 08:51:00 Performed By: #### 1 [id number] ####[facility] [address] [place] [address] [place] 11-12-2023 Screens [id number]#1.00TIFF Normal [facility] Ambulatory Visit Summaryon 1 01-12-2023 Ambulatory Visit Summary ASHLEY LEDESMA :1960 Visit Date:11/11/2023 Ambulatory Visit Instructions Your Diagnosis BPH with urinary obstruction Gross hematuria Tests Performed Urnls Dip Stick Auto w/o Microscopy POC 01503 Your Care Team Attending Physician - Kristal YING, COLLEEN, Jerica Ojeda Primary Care Physician - Adan Lamar MD This Is Your Medications List [...] FREE TEXT SOURCE: ROSALINDA CHAPMAN PA-C, PA-C, ROSALINDA Hansen FINAL REPORTS Final Report [] Verified Date/Time: 11/11/2023 10:49 EST No growth at 2 days. Performing Locations R1: This test was performed at: [facility], [address] [place] [address], [phone] , [place], [facility] Comment on above: Performed By: #### 2 [id number] ####[place] [address] Patient Educationon 12-14-20 23 Patient Education Urology Benign Prostatic Hyperplasia Benign [...] Follow these instructions at home: ? Take qsdc-xqo-aulnlvi and prescription medicines only as told by [...] the medicine (more content not included)... Normal [facility] UroVysion Fish and Urine Cyt o ([facility])on 11-11-2023 [facility] Method of Extraction Voided Normal [facility] Comment on above: Performed By: #### 1 [id number] ####[facility] [id number] [place] [address] UVUC Number of Jars 1 Invalid Interpretation Code [facility] Comment on above: Performed By: #### 1 [id number] ####[facility] Andk[address] [facility] [place] [address] UVUC Specimen Urine Normal [facility] Comment on above: Performed By: #### 1 [id number] ####[facility] [address] [facility] [place] [address] [facility]UC Type of Service Technical Only Normal [facility] Comment on above: Performed By: #### 1 [id number] ####[facility] [address] [facility] [address] Urology Office/Clinic Noteon 11-11-2023 Urology Office/Clinic Note [...] Urine Cyto ([facility]) 3. Anticoagulated (Z79.01: senior care (current) use of anticoagulants) Takes 81 mg [...] Urnls Dip Stick Auto w/o Microscopy POC 29644 [employer] Fish and Urine Cyto ([facility]) [...] ultrasound (US) (more content not included)... Normal [facility] Comment on above: Result Comment: Elec tronically Signed By: COLLEEN Giraldo APRN, [place] X\.kerry\Date and Time Signed: 11/11/23 10:15 EST Ambulatory Visit Summaryon 1 Ambulatory Visit Summary ASHLEY LEDESMA :1960 Visit Date:09/24/2023 Ambulatory Visit Instructions Your Diagnosis Personal history of bladder cancer BPH with urinary obstruction Elevated PSA Erectile dysfunction Tests Performed Urnls Dip Stick Auto w/o Microscopy POC 72679 Your Care Team Attending Physician - Davey JARA MD Primary Care Physician - Adan Lamar MD This Is Your Medications List [...] of [facility] Patient Educationon 10-27-20 23 Patient Education Oncology Prostate Cancer Screening [...] Where to find more information ? The [place] [employer]: www.cancer.org ? [place] [employer]: www.auanet.org Contact a health care [...] adds flu (more content not included)... Normal [facility] Urology Office/Clinic Noteon 09-24-2023 Urology Office/Clinic Note [...] w/ Gemtesa, states it is affordable through [employer] if it's a 90 day supply. -Call [...] current dosage. -Refill sent to [facility] in [place] due to cost Follow-up With When Contact Information ESTEFANI WILLIAMSON, Davey Hoover, URL [address] [id number]- Additional Instructions: 1 year w/ PSA Patient Education Prostate Cancer Screening I, Corrie Mendoza, personally scribed for Dr. Jara on 09/24/2023 [...] Tobacco Use, 09/11/2019 (more content not included)... [facility] Comment on above: Result Comment: Elec tronically Signed By: Davey JARA MD\.br\Date and Time Signed: 09/24/23 08:51 EDT\.br\Electronically Co-Signed By: Corrie Mendoza\.br\Date and Time Co-Signed: 09/24/23 08:49 EDT Lab Reportson 07-22-2023 Lab Reports [id number]#1.00CD:127 [facility] Ambulatory Visit Summaryon 0 07-12-2023 Ambulatory Visit Summary ASHLEY LEDESMA :1960 Visit Date:07/12/2023 Ambulatory Visit Instructions Your Diagnosis Screen for colon cancer History of esophageal ulcer Your Care Team Attending Physician - Garima Eastman CNP Primary Care Physician - Adan Lamar MD This Is Your Medications List [...] [place] Consent Formson 07-12-2023 Consent Forms [id number] [facility] Gastroenterology Office/Clin ic Noteon 07-12-2023 Gastroenterology Office/Clinic [...] EA, Refill(s) 0, 2 day colon prep., [facility]/pharmacy #[id number], 178, cm, 07/12/23 14:08:00 EDT, Height/Length [...] Oral, D (more content not included)... Normal [facility] Comment on above: Result Comment: Elec tronically Signed By: Garima Eastman CNP\.kerry\Date and Time Signed: 07/12/23 14:14 EDT Lipid Panel Standardon 07-08 Cholesterol [Mass/Vol] 216.0 mg/dL High 66.0-200.0 [facility] Comment on above: Performed By: #### 1 [id number], [id number] #### [facility] (DEFAULT) [address] [place] [address] Cholesterol in HDL [Mass/Vol] 74 mg/dL High 40-71 [facility] Comment on above: Performed By: #### 1 [id number], [id number] #### [facility] (DEFAULT) [address] [place] [address] Cholesterol in LDL [Mass/Vol] 120 mg/dL High 1-100 [facility] Comment on above: Performed By: #### 1 [id number], [id number] #### [facility] (DEFAULT) [address] [place] [address] Cholesterol.total/ Cholesterol in HDL [Mass ratio] 2.8 {ratio} Normal 0.0-4.5 [facility] Comment on above: Performed By: #### 1 [id number], [id number] #### [facility] (DEFAULT) [address] [place] [address] Triglyceride [Mass/Vol] 105.0 mg/dL Normal 0.0-150.0 [facility] Comment on above: Performed By: #### 1 [id number], [id number] #### [facility] (DEFAULT) [address] [place] [address] 09896 VLDL. 21 mg/dL Normal 5-40 [facility] Comment on above: Performed By: #### 1 [id number], [id number] #### [facility] (DEFAULT) [address] [place] [address] 18367 PSA Screenon 07-08-2023 PSA Screen 3.42 ng/mL Normal 0.00-4.00 [facility] Comment on above: Result Comment: [employer] DxI SofGenie Access Clinical System (Chemiluminescence) Values obtained with different assay methods or kits cannot be used interchangeably. Results cannot be interpreted as absolute evidence of the presence or absence of malignant disease. Performed By: #### 1 [id number], [id number] #### [facility] (DEFAULT) [address] [place] [address] Pathology Noteon 07-02-2023 Pathology Note [id number]#1.00CD:127 [facility] Pathology Reporton Pathology Report [id number]#1.00CD:127 [facility] Postoperative Documentson Postoperative Documents [id number]#1.00CD:127 [facility] IntraOperative Documentson 0 06-24-2023 IntraOperative Documents [id number]#1.00CD:127 [facility] Consenton 06-21-2023 Consent [id number]#1.00CD:127 [facility] Discharge Instructionson Discharge Instructions [id number]#1.00CD:127 [facility] Main OR Intraoperative Recor don 06-21-2023 Main OR Intraoperative Record IntraOp Document Type FT Summary Primary Physician: Danny AMES MD Finalized Date/Time: 06/21/23 09:07:05 Pt. Name: ASHLEY LEDESMA/Sex: 1960 Male Med Rec #: [id number] Physician: Danny AMES MD Financial #: [id number] Pt. Type: O Room/Bed: Endo 01/27 Admit/Disch: 06/18/23 11:58:07 - 06/18/23 14:32:00 Institution: Case Times FT Entry 1 Patient Times In Room 06/18/23 13:27:00 Out Room 06/18/23 14:01:00 Procedure Times Start 06/18/23 13:32:00 Stop 06/18/23 13:58:00 Anesthesia Times Start 06/18/23 13:27:00 Stop 06/18/23 14:01:00 Time at Cecum 06/18/23 13:48:00 Last Modified By: Gita STEINER, Adal Hansen 06/18/23 14:02:52 General Comments: 1341 EGD completed MSRN 1344 Colonoscopy started MSRN unable to reach cecum, ascending colon reached per Dr. Ames. colonoscopy incomplete MSRN 06/21/23 Chart opened to review and send charges [facility] CSFA Case Attendance FT Entry 1 Entry 2 Entry 3 Case Attendee Gita RN, Adal Ledesma INTERIOR DESIGN ASSISTANT, Leah AMES MD, Danny Fontaine Role Performed Procurement Director - Primary Scrub - Primary Surgeon - Primary Time In 06/18/23 13:27:00 06/18/23 13:27:00 06/18/23 13:27:00 Time Out 06/18/23 14:01:00 06/18/23 14:01:00 06/18/23 14:01:00 Procedure EGD AND COLONOSCOPY(.) EGD AND COLONOSCOPY(.) EGD AND COLONOSCOPY(.) Comments Last Modified By: Gita RN, Adal Pelayo RN, Adal Pelayo RN, Adal Hansen 06/18/23 14:02:53 06/18/23 14:02:53 06/18/23 14:02:53 Entry 4 Entry 5 Entry 6 Case Attendee Laura Daley CAA, Charlotte Stratton ROOM INSPECTOR, Laine Leahy Role Performed Staff - Other Anesthesiologist ROOM INSPECTOR Math Professor Time In 06/18/23 13:32:00 06/18/23 13:27:00 06/18/23 [...] (If Applicable) PreOp Antibiotic No Time Out Charlotte Eden Given Participants Baltazar Hardin CST, BEN Castro MD, Maher, Souter RN, Morgan [...] Yes Colonoscopy- Internal hemorrhoids Last Modified By: Adal Pelayo RN 06/18/23 14:07:01 Post-Care Text: The patient is free from signs and symptoms of infection General Comments: Colonoscopy incomplete due to fair prep and inability to reach cecum. MSRN Skin Assessment (Pre Procedure) FT Pre-Care Text: Implements protective measures to prevent skin/ tissue injury due to thermal or mechanical sources Evaluates for signs and symptoms of physical injury to (more content not included)... Normal [facility] Consent for Treatmenton 05-30 Consent for Treatment [id number]#1.00CD:127 Normal [facility] Discharge Instructionson Discharge Instructions ASHLEY LEDESMA :1960 Visit Date:06/18/2023 Inpatient Discharge Instructions Your [...] 24 hours Discharge Diet(s) Regular Pharmacy Information [facility] Discharge Instructions Discharge Instructions Previously Scheduled Follow-Up Appointments Wednesday 1:45 PM EDT With: Davey JARA MD Where: [facility] Comment on above: Result Comment: Elec troethanally Signed By: James STEINER, Rosalinda\.kerry\Date and Time Signed: 06/18/23 14:14 EDT Endoscopic Procedure Report - Otheron 06-18-2023 Endoscopic Procedure Report - Other Patient: ASHLEY LEDESMA Age: 63 years Sex: Male : [...] valve Images Procedure images: Rec1_hd_video___ 00_59_192.jpg Rec1_hd_video___ 01_14_966.jpg . Post-Procedure Complications: none. Estimated blood loss: [...] medications. Return to activities:: After 24 hours. Normal [facility] Comment on above: Result Comment: Elec tronically Signed By: Danny AMES MD\.br\Date and Time Signed: 06/18/23 14:01 EDT Other Comment: Linda cardenas Attachment - attachment storage system not supported [id number] Can be viewed in source systemMissing Attachment - attachment storage system not supported [id number] Can be viewed in source system Endoscopic Procedure Report - Other Patient: ASHLEY LEDESMA Age: 63 years Sex: Male : [...] gastric and duodenal mucosa Images Procedure images: Rec1_hd_video___ 38_30_325.jpg Rec1_hd_video___ 38_17_110.jpg Rec1_hd_video_2022___ 37_48_162.jpg Rec_hd_video___ 38_05_017.jpg Rec1_hd_video___ 37_08_307.jpg Rec1_hd_video__ 36_54_358.jpg . Post-Procedure Complications: none. Estimated blood loss: none. Specimens: sent to pathology. Devices/ implants: none left in place. Impression and Plan Esophageal nodule, 10 mm, rounded, located at the Z-line, removed completely with hot snare after submucosal lifting, 1 clip placed at polypectomy site Normal gastric and duodenal mucosa Recommendations: Follow-up in GI clinic in 2 weeks [facility] Comment on above: Result Comment: Elec tronically Signed By: Danny AMES MD\.br\Date and Time Signed: 06/18/23 14:00 EDT Other Comment: Linda cardenas Attachment - attachment storage system not supported [id number] Can be viewed in source systemMissing Attachment - attachment storage system not supported [id number] Can be viewed in source systemMissing Attachment - attachment storage system not supported [id number] Can be viewed in source systemMissing Attachment - attachment storage system not supported [id number] Can be viewed in source systemMissing Attachment - attachment storage system not supported [id number] Can be viewed in source systemMissing Attachment - attachment storage system not supported [id number] Can be viewed in source system Main OR PACU I Recordon 05-30 Main OR PACU I Record PACU Phase I Document Type FT Summary Primary Physician: Danny AMES MD Finalized Date/Time: 06/18/23 14:49:43 Pt. Name: ASHLEY LEDESMA/Sex: 1960 Male Med Rec #: [id number] Physician: Danny AMES MD Financial #: [id number] Pt. Type: O Room/Bed: Endo 01/27 Admit/Disch: 06/18/23 11:58:07 - Institution: Case [...] By: Rosalinda Ramirez RN 06/18/23 14:49 Normal [facility] Main OR Preoperative Recordo n 06-18-2023 Main OR Preoperative Record Holding Area Document Type FT Summary Primary Physician: Danny AMES MD Finalized Date/Time: 06/18/23 12:24:49 Pt. Name: ASHLEY LEDESMA Kenzie Singh/Sex: 1960 Male Med Rec #: [id number] Physician: Danny AMES MD Financial #: [id number] Pt. Type: O Room/Bed: Endo 01/27 Admit/Disch: 06/18/23 11:58:07 - Institution: Case [...] No Patient states Yes Comment - Adult -rubi postop adult Supervision supervision available Case Cancelled in No Holding Area see comments below for reason Last Modified By: Antonina Farrar RN 06/18/23 12:24:44 General Comments: 1005 pre pin patient tolerated well, last bowel movement was tannish./GEOVANNA,RN Finalized By: Antonina Farrar RN Document Signatures Signed By: Antonina Farrar RN 06/18/23 12:24 Normal [facility] Monitor Recordon 06-18-2023 Monitor Record [id number]#1.00CD:127 Normal [facility] Monitor Record [id number]#1.00CD:127 Normal [facility] Patient Education - Texton 0 06-18-2023 Patient [...] Document Re-Released: 05/09/2007 ExitCare? Patient Information ?2009 datango. Gastroenterology Hemorrhoids Hemorrhoids are swollen veins that [...] is this (more content not included)... Normal [facility] Progress Note-Physicianon Progress Note-Physician Patient: ASHLEY LEDESMA Age: 63 years Sex: Male : 1960 Associated Diagnoses: None Author: Bereket Stoll Jr, DO Postoperative Information Postoperative disposition: [...] meets criteria ( To home ). Normal [facility] Comment on above: Result Comment: Elec tronically Signed By: Bereket Stoll Jr, DO\.br\Date and Time Signed: 06/18/23 15:14 EDT Progress Note-Physician Patient: ASHLEY LEDESMA Age: 63 years Sex: Male : 1960 Associated Diagnoses: None Author: Bereket Stoll Jr, DO Preoperative Information Anesthesia Preop [...] BPH with urinary obstruction / SNOMED CT 6419454412 / Confirmed BMI 27.0-27.9,adult / SNOMED CT 7746790561 / Confirmed Anticoagulated / SNOMED CT 377779252 / Confirmed Eczema / SNOMED CT 86919635 / Confirmed Erectile dysfunction / SNOMED CT 7522439406 / Confirmed Gout / SNOMED CT 621468607 / Confirmed Hemorrhoids / SNOMED CT 325291937 / Confirmed Personal history of bladder cancer / SNOMED CT 221123454 / Confirmed Panic attack / SNOMED CT 924651312 / Confirmed Screen for colon cancer / SNOMED CT 461885804 / Confirmed Elevated PSA / SNOMED CT 8939957284 / Confirmed Decreased sex drive / SNOMED CT 414193218 / Confirmed Retinal hemorrhage / SNOMED CT 53071272 / Confirmed Sleep apnea / SNOMED CT 342349317 / Confirmed Ulcer of esophagus / SNOMED CT 42887825 / Confirmed Other membranous urethral stricture, male / SNOMED CT 281856389 / Confirmed Urinary urgency / SNOMED CT 301145777 / Confirmed Histories Procedure history: Cystoscope (02820439) on 11/19/2020 at 60 Years. cysto on 10/31/2019 at 59 Years. Transrectal biopsy of prostate using ultrasound (US) guidance (3985371056) on 08/22/2019 at 59 Years. Cystoscopy (21966548) on 11/08/2018 at 58 Years. Cysto/TURP/TURBT (043387885) on 01/10/2015 at 54 Years. Cystoscopy and transurethral biopsy of bladder (3937941795) on 01/10/2015 at 54 Years. Cysto (82109119) on 12/17/2014 at 54 Years. Comments: 07/12/2019 10:00 Nikki Joya 07/01/15, 10/21/15, 01/21/16, 05/05/16, 11/17/16, 11/09/17, 11/08/18 Urodynamics (225213847) on 12/05/2014 at 54 Years. Tonsillectomy (034149614). Colonoscopy (977755008). Cystoscopy (59047285). Nose - repair or plastic operation (952595243). Social History Social & Psychosocial Habits Alcohol [...] adequate air exchange. Cardiovascular: Regular rhythm. Plan [place] [employer] Anesthesiologists (ASA) physical status classification: Class II. Anesthetic Preoperative Plan: Anesthesia General. Normal [facility] Comment on above: Result Comment: Elec tronically Signed By: Jerman Whitley DO, Bereket Zamora\.kerry\Date and Time Signed: 06/18/23 15:12 EDT TESTOSTERONE, TOTALon 2020 Testosterone [Mass/Vol] 340 ng/dL Normal 264-916 [facility] Comment on above: Result Comment: Adul t male reference interval is based on a population of healthy nonobese males (BMI <30) between 19 and 39 years old. Blue et.al. JCEM 2017,102;4302-2323. PMID: 11702062. Performed By: #### T ESTTOT #### [facility] [address] [place] [address] Yusef Noel COVID-19 PCRon 08-20-2020 SARS-CoV-2, [place] Not Detected Normal Not Detected [facility] Comment on above: Result Comment: This nucleic acid amplification test was developed and its performance characteristics determined by [employer]. Nucleic acid amplification tests include PCR and [...] assay. Performed By: #### C VDPCR #### [facility] [address] [place] [address] Yusef Noel COVID-19 PCRon 08-10-2020 SARS-CoV-2, [place] Not Detected Normal Not Detected [facility] Comment on above: Result Comment: This nucleic acid amplification test was developed and its performance characteristics determined by [employer]. Nucleic acid amplification tests include PCR and [...] assay. Performed By: #### C VDPCR #### [facility] [address] [address] Yusef Jeffersen FOOT RIGHT 3 [facility] FOOT RIGHT 3 [facility] [address] [id number] Patient Name: ASHLEY LEDESMA : 1960Sex: MAge: Race: WhiteMRN: [id number]. Location: 84Patient Status: Date: 08/19/2017 12:45:00 PMCompleted Date: 08/19/2017 12:47 PMRequesting Provider: MARYLIN SARGENT Attending Provider: Report Copy To: Signs & Symptoms: S92.421D Disp fx of dist phalanx of r great toe, 7thD [id number]: AthenaComments: , , , Ordering Provider - MARYLIN SARGENT PA-C , Exam: FOOT RIGHT 3 VWSAccession #: [id number] ELLEN T RIGHT 3 VWS 08/19/2017 12:47 [...] Electronically signed by:Blake Mclean M.D.. Transcribed by: [email or web address], User Resident: Electronically Signed by: BLAKE MCLEAN @ 08/19/2017 04:09 PM Normal [facility] Comment on above: Order Comment: , , = ========= , Ordering Provider - MARYLIN SARGENT PA-C , Vital Signs Date Time Vital Sign Value Performing Clinician Facility 06-07-2024 11:24-0400 Body height 177.8 cm Jayne Silveira MD Work Phone: [facility] 06-07-2024 11:24-0400 Body mass index (BMI) [Ratio] 26.73 kg/m2 Jayne Silveira MD Work Phone: [facility] 06-07-2024 11:24-0400 Body weight 84.5 kg Jayne Silveira MD Work Phone: [facility] 06-07-2024 11:24-0400 Diastolic blood pressure 87 mm[Hg] Jayne Silveira MD Work Phone: [facility] 06-07-2024 11:24-0400 Heart rate 74 /min Jayne Silveira MD Work Phone: [facility] 06-07-2024 11:24-0400 Systolic blood pressure 165 mm[Hg] Jayne Silveira MD Work Phone: [facility] 03-24-2024 08:11-0400 Body height 177.8 cm Jayne Silveira MD Work Phone: [facility] 03-24-2024 08:11-0400 Body mass index (BMI) [Ratio] 26.44 kg/m2 Jayne Silveira MD Work Phone: [facility] 03-24-2024 08:11-0400 Body temperature 97.7 [degF] Jayne Silveira MD Work Phone: [facility] 03-24-2024 08:11-0400 Body weight 83.6 kg Jayne Silveira MD Work Phone: [facility] 03-24-2024 08:11-0400 Diastolic blood pressure 81 mm[Hg] Jayne Silveira MD Work Phone: [facility] 03-24-2024 08:11-0400 Heart rate 67 /min Jayne Silveira MD Work Phone: [facility] 03-24-2024 08:11-0400 Systolic blood pressure 156 mm[Hg] Jayne Silveira MD Work Phone: [facility] 01-05-2024 10:25-0500 Body height 177.8 cm Pac 7 Work Phone: [facility] 01-05-2024 10:25-0500 Body temperature 97.39 [degF] Pacc 7 Work Phone: [facility] 01-05-2024 10:25-0500 Body weight 85.5 kg Pacc 7 Work Phone: [facility] 01-05-2024 10:25-0500 Diastolic blood pressure 84 mm[Hg] Pacc 7 Work Phone: [facility] 01-05-2024 10:25-0500 Heart rate 69 /min Pacc 7 Work Phone: [facility] 01-05-2024 10:25-0500 SaO2% (BldA) [Mass fraction] 99 % Pacc 7 Work Phone: [facility] 01-05-2024 10:25-0500 Systolic blood pressure 145 mm[Hg] Pac 7 Work Phone: [facility] 09-24-2023 08:16-0400 Blood Pressure Location Davey JARA [facility] 09-24-2023 08:16-0400 Diastolic blood pressure 87 mm[Hg] Davey JARA [facility] 09-24-2023 08:16-0400 Heart rate 68 /min Davey JARA [facility] 09-24-2023 08:16-0400 Respiratory rate 16 /min Davey JARA [facility] 09-24-2023 08:16-0400 Systolic blood pressure 133 mm[Hg] Davey JARA [facility] 07-12-2023 14:06-0400 Blood Pressure Location Garima Eastman [facility] 07-12-2023 14:06-0400 Body temperature 97.16 [degF] Garima Lindseymetz [facility] 07-12-2023 14:06-0400 Diastolic blood pressure 84 mm[Hg] Garimarenae LindseyJaren [facility] 07-12-2023 14:06-0400 Heart rate 72 /min Garima Lindseymetz [facility] 07-12-2023 14:06-0400 Systolic blood pressure 137 mm[Hg] Garimarenae LindseyJaren [facility] 05-05-2023 08:17-0400 Diastolic blood pressure 80 mm[Hg] Delgado SALAM [facility] 05-05-2023 08:17-0400 Mean blood pressure 105 mm[Hg] Delgado SALAM [facility] 05-05-2023 08:17-0400 Systolic blood pressure 154 mm[Hg] Delgado SALAM [facility] 05-05-2023 08:15-0400 Blood Pressure Location Delgado SALAM [facility] 05-05-2023 08:15-0400 Diastolic blood pressure 80 mm[Hg] Delgado SALAM [facility] 05-05-2023 08:15-0400 Heart rate 79 /min Delgado SALAM [facility] 05-05-2023 08:15-0400 Respiratory rate 16 /min Delgado SALAM [facility] 05-05-2023 08:15-0400 Systolic blood pressure 154 mm[Hg] Delgado SALAM [facility] 03-23-2023 19:14-0400 Heart rate 67 /min [facility] 02-18-2023 19:14-0400 SaO2% (BldA) [Mass fraction] 99 % [facility] 02-18-2023 19:14-0400 Respiratory rate 16 /min [facility] 02-18-2023 19:14-0400 Diastolic blood pressure 89 mm[Hg] [facility] 02-18-2023 19:14-0400 Mean blood pressure 115 mm[Hg] [facility] 02-18-2023 19:14-0400 Systolic blood pressure 166 mm[Hg] [facility] 02-18-2023 19:14-0400 Body temperature 97.7 [degF] [facility] 02-18-2023 18:15-0400 Heart rate 62 /min [facility] 02-18-2023 18:15-0400 SaO2% (BldA) [Mass fraction] 98 % [facility] 02-18-2023 18:14-0400 Respiratory rate 16 /min [facility] 02-18-2023 18:14-0400 Diastolic blood pressure 87 mm[Hg] [facility] 02-18-2023 18:14-0400 Mean blood pressure 112 mm[Hg] [facility] 02-18-2023 18:14-0400 Systolic blood pressure 160 mm[Hg] [facility] 02-18-2023 18:14-0400 Body temperature 97.7 [degF] [facility] 02-18-2023 17:07-0400 Heart rate 61 /min [facility] 02-18-2023 17:07-0400 SaO2% (BldA) [Mass fraction] 98 % [facility] 02-18-2023 17:07-0400 Respiratory rate 18 /min [facility] 02-18-2023 17:07-0400 Diastolic blood pressure 83 mm[Hg] [facility] 02-18-2023 17:07-0400 Mean blood pressure 103 mm[Hg] [facility] 02-18-2023 17:07-0400 Systolic blood pressure 144 mm[Hg] [facility] 02-18-2023 17:07-0400 Body temperature 98.06 [degF] [facility] 02-18-2023 15:51-0400 Mean blood pressure 96 mm[Hg] [facility] 02-18-2023 15:51-0400 Respiratory rate 20 /min [facility] 02-18-2023 15:40-0400 Mean blood pressure 80 mm[Hg] [facility] 02-18-2023 15:40-0400 Respiratory rate 15 /min [facility] 02-18-2023 15:35-0400 Mean blood pressure 79 mm[Hg] [facility] 02-18-2023 15:35-0400 Respiratory rate 16 /min [facility] 02-18-2023 14:34-0400 Blood Pressure Location [facility] 02-18-2023 13:50-0400 Body temperature 98.06 [degF] [facility] 02-18-2023 13:50-0400 Heart rate 78 /min [facility] Encounters Encounter Date Encounter Type Care Provider Facility Start: 06-16-2024 End: 06-16-2024 ambulatory ADAN LAMAR Facility:[facility] Start: 06-07-2024 End: 06-07-2024 ambulatory Jayne Silveira MD Work Phone: Kidney Medicine [facility] Start: 06-07-2024 End: 06-07-2024 Patient encounter procedure Jayne Silveira MD Work Phone: [facility] Comment on above: Stage 3b chronic kid eduardo disease (HCC) (Primary Dx); H/O left nephrectomy Start: 04-26-2024 End: 04-26-2024 ambulatory JADA SANTO Facility:[facility] Start: 04-26-2024 End: 04-26-2024 Follow-up encounter Jada Olmsteadnegro [employer]RR[employer] [employer] Work Phone: Urology Comment on above: Encounter for follow -up surveillance of kidney cancer (Primary Dx); History of renal cell cancer; H/O left nephrectomy; Stage 3a chronic kidney disease (HCC); Pancreatic cyst Start: 04-26-2024 End: 04-26-2024 Telemedicine consultation with patient Jaad Santo APRN.[facility] Work Phone: Urology Start: 04-25-2024 ambulatory [facility] Facility: [facility] Start: 04-25-2024 End: 04-25-2024 Subsequent hospital visit by physician [facility] Work Phone: [facility] Radiology CT Scan Comment on above: Renal cell carcinoma of left kidney (HCC) [C64.2] Start: 04-11-2024 Orders Only Jayne peguero MD Work Phone: [facility] Start: 03-24-2024 End: 03-24-2024 ambulatory Jayne Silveira MD Work Phone: [facility] Start: 03-24-2024 End: 03-24-2024 Patient encounter procedure Jayne Silveira MD Work Phone: [facility] Comment on above: H/O left nephrectomy ; Stage 3b chronic kidney disease (HCC) Start: 01-25-2024 End: 01-25-2024 ambulatory Charlotte Lindsey MD Work Phone: Urology Comment on above: Renal cell carcinoma of left kidney (HCC) (Primary Dx); H/O left nephrectomy; Stage 3b chronic kidney disease (HCC) Start: 01-25-2024 End: 01-25-2024 Telemedicine consultation with patient Charlotte Lindsey MD Work Phone: [facility] Start: 01-14-2024 Telephone encounter Adan Lamar MD Work Phone: noc Comment on above: Follow Up Phone Call (All Clear) Start: 01-11-2024 Telephone encounter Neela Tang Urological & Comment on above: Returning Patient's Call Start: 01-06-2024 End: 01-09-2024 Evaluation and management of inpatient CHARLOTTE LINDSEY Facility:[facility] Start: 01-05-2024 End: 01-05-2024 Subsequent hospital visit by physician Spectct3 Work Phone: Molecular Imaging Comment on above: Acquired cyst of kid eduardo [N28.1] Start: 01-05-2024 End: 01-05-2024 Admission to establishment Pacc Main 7 Work Phone: [facility] Start: 01-05-2024 End: 01-05-2024 ambulatory [facility] Main 7 Work Phone: Pre Anesthesia Comment on above: Pre-op evaluation (P rimary Dx) Start: 01-05-2024 End: 01-05-2024 Preprocedural examination done Pac Main Work Phone: [facility] Work Phone: Start: 01-05-2024 Encounter for other preprocedural examination ADAN LAMAR [facility] Start: 01-05-2024 End: 01-05-2024 ambulatory CHARLOTTE LINDSEY Facility:[facility] Start: 01-04-2024 End: 01-04-2024 ambulatory ADAN LAMAR Facility:[facility] Start: 01-03-2024 End: 01-03-2024 ambulatory ADAN LAMAR Facility:[facility] Start: 12-21-2023 End: 12-21-2023 Patient encounter procedure Charlotte Lindsey MD Work Phone: Urology Comment on above: Renal mass (Primary Dx); Gross hematuria; Other specified disorders of kidney and ureter; 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); Acquired cyst of kidney Start: 12-21-2023 End: 12-21-2023 ambulatory CHARLOTTE LINDSEY Facility:[facility] Start: 11-30-2023 End: 11-30-2023 ambulatory Davey JARA [facility] Start: 11-30-2023 End: 11-30-2023 Lab Drop off Davey JARA [facility] Start: 11-30-2023 End: 11-30-2023 ambulatory Davey JARA Facility:[facility] Start: 11-30-2023 End: 11-30-2023 Patient encounter procedure Davey JARA [facility] Start: 11-26-2023 End: 11-26-2023 ambulatory Davey JARA Facility: [facility] Start: 11-26-2023 End: 11-26-2023 Patient encounter procedure Davey JARA [facility] Start: 11-24-2023 End: 11-24-2023 ambulatory AMRIK MUNROE Not Available Start: 11-11-2023 End: 11-11-2023 ambulatory Jerica X Orzoraida [facility] Start: 11-11-2023 End: 11-11-2023 ambulatory Jerica X Orzech Facility: [facility] Start: 11-09-2023 End: 11-09-2023 ambulatory ROSALINDA CHAPMAN [facility] Start: 11-09-2023 End: 11-09-2023 Lab Drop off ROSALINDA CHAPMAN [facility] Start: 11-08-2023 End: 11-08-2023 ambulatory Davey JARA Facility:[facility] Start: 11-08-2023 End: 11-08-2023 Patient encounter procedure [facility] JARA [facility] Start: 09-24-2023 End: 09-24-2023 ambulatory Daveysaumya JARA Facility:[facility] Start: 09-24-2023 End: 09-24-2023 Patient encounter procedure Davey JARA [facility] Start: 07-12-2023 End: 07-12-2023 ambulatory Garima Eastman Facility:[facility] Start: 07-12-2023 End: 07-12-2023 Patient encounter procedure Garima Zamora Jaren [facility] Start: 07-08-2023 End: 07-09-2023 ambulatory ADAN Y Facility:[facility] Start: 06-18-2023 End: 06-18-2023 ambulatory [facility] Start: 05-05-2023 End: 05-05-2023 Patient encounter procedure Delgado SALAM [facility] Start: 02-18-2023 End: 02-18-2023 Emergency department patient visit Kenji Blockarchie [facility] Start: 01-22-2021 End: 01-23-2021 Patient encounter procedure ADAN HOY Facility:[facility] Start: 08-19-2020 End: 08-20-2020 Patient encounter procedure ADAN HOY Facility:[facility] Start: 08-09-2020 End: 08-10-2020 Patient encounter procedure DANICA MUNROE Facility:[facility] Start: 08-19-2017 End: 08-20-2017 Ambulatory MARYLIN SARGENT Facility:[facility] Procedures Date Procedure Procedure Detail Performing Clinician Start: 06-07-2024 Creatinine other source Jayne Silveira MD Work Phone: Start: 06-07-2024 Urnls dip stick/tablet rgnt auto w/o microscopy Bulk Order Provider Start: 04-25-2024 Mri abdomen w/o & w/contrast material Jada Santo DIRECTOR [employer] Work Phone: Start: 04-25-2024 Ct thorax w/o contrast material Jada malagon DIRECT[employer] Work Phone: Start: 03-24-2024 Urnls dip stick/tablet rgnt auto w/o microscopy Bulk Order Provider Start: 01-05-2024 Kidney img morphology vascular flow 1 w/o rx Jonny Arnett MD Work Phone: Start: 01-03-2024 Antibody screen ADAN LAMAR Comment on above: Order Comment: Specimen Type: BLOOD SPEC IMEN Ordering Facility: [facility] Address: [address] [place] [address] Performed By: #### T [id number] #### [facility] CLIA [id number] [address] [place] [address] [place] Start: 06-18-2023 Colonoscopy Garima Eastman Start: 06-18-2023 [...] Treatment Date Care Activity Detail Author Start: 03-24-2027 Diabetes Screening Diabetes Screening [facility] Start: 01-09-2027 Diabetes Screening Diabetes Screening [facility] Start: 01-03-2027 Diabetes Screening Diabetes Screening [facility] Start: 06-07-2025 Creatinine measurement Serum Creatinine [facility] Start: 03-24-2025 Complete blood count Hemoglobin/Hematocrit [facility] Start: 03-24-2025 Creatinine measurement Serum Creatinine [facility] Start: 11-01-2024 End: 11-01-2024 ambulatory 11/01/2024 10:30 AM EST [facility] Urology [address] [address] Jada Santo APRN.[facility] [address] [place] [address] 6 month VV for a read per cc chart Urology Comment on above: 6 month VV for a read per cc chart Start: 10-27-2024 End: 01-26-2025 Comprehensive metabolic 2000 panel - Serum or Plasma COMPREHENSIVE METABOLIC PANEL Lab Routine History of renal cell cancer Expected: 10/27/2024 (Approximate), Expires: 01/26/2025 [facility] Work Phone: Comment on above: Expected: 10/27/2024 (Approximate), Expi res: 01/26/2025 Start: 10-27-2024 End: 10-27-2024 Patient encounter procedure [facility] Radiology CT Scan Comment on above: CT CHEST WO IVCON MRI ABDOMEN WO/W IVC ON COMPREHENSIVE METABO LIC PANEL Start: 10-13-2024 End: 10-13-2024 Patient encounter procedure 10/13/2024 11:40 AM EST Office Visit [facility] [address] [address] Jayne Silveira MD [address] [place] [address] Return in 4 months [facility] Comment on above: Return in 4 months Start: 09-29-2024 ambulatory Ambulatory Facility:[facility] Start: 08-09-2024 End: 08-09-2024 ambulatory 08/09/2024 10:00 AM EDT [facility] Gastroenterology [address] [address] Rafael Banda MD [address] [address] PANCREATIC CYST Gastroenterology Comment on above: PANCREATIC CYST Start: 07-30-2024 Influenza [facility] Start: 06-07-2024 End: 06-07-2024 Patient encounter procedure 06/07/2024 11:40 AM EDT Office Visit [facility] [address] [address] Jayne Silveira MD [address] [place] [address] CKD [facility] Comment on above: CKD Start: 2024 Advance Directive Discussion Advance Directive Discussion [facility] Start: 2024 Pneumococcal Vaccine: 65+ (1 of 1 - PCV) Pneumococcal Vaccine: 65+ (1 of 1 - PCV) [facility] Start: 04-26-2024 End: 04-26-2024 ambulatory 04/26/2024 2:30 PM EDT [facility] Urology [address] [address] Jada Santo, STEPAN.[employer] [employer] [address] [place] [address] 3 month f/u RCC per CC Chart Urology Comment on above: 3 month f/u RCC per CC Chart Start: 04-25-2024 End: 04-25-2024 Patient encounter procedure [facility] Radiology CT Scan Comment on above: CT CHEST WO IVCON COMP METABOLIC PANEL MRI ABDOMEN WO/W IVC ON Start: 04-24-2024 End: 07-24-2024 Comprehensive metabolic 2000 panel - Serum or Plasma COMP METABOLIC PANEL Lab Routine Renal cell carcinoma of left kidney (HCC) H/O left nephrectomy Expected: 04/24/2024 (Approximate), Expires: 07/24/2024 [facility] Work Phone: Comment on above: Expected: 04/24/2024 (Approximate), Expi res: 07/24/2024 Start: 01-18-2024 Covid-19 Vaccine () Covid-19 Vaccine () [facility] Start: 11-29-2023 Behavioral Health Screening Behavioral Health Screening [facility] Start: 11-29-2023 Depression Assessment Depression Assessment [facility] Start: 2019 RSV Vaccine (1 - 1-dose 60+ series) RSV Vaccine (1 - 1-dose 60+ series) [facility] Start: 2014 Prostate specific antigen measurement Prostate Cancer Screening Discussion [facility] Start: 2004 Screening for malignant neoplasm of colon [facility] Start: 1994 Lipid panel Lipid Screening [facility] Start: 1978 Urine microalbumin profile DTaP,Tdap,Td Vaccine (1 - Tdap) [facility] Start: 1977 Annual PCP Team Chronic Disease Visit Annual PCP Team Chronic Disease Visit [facility] Start: 1977 Hepatitis C screening Hepatitis C Screening [facility] Start: 1977 HIV screening HIV Screening [facility] Start: 1959 Abdominal aortic aneurysm screening Abdominal Aortic Aneurysm Screening [facility] End: 02-23-2025 CT Chest WO contrast CT CHEST WO IVCON Radiology Routine Renal cell carcinoma of left kidney (HCC) 1 Occurrences starting 01/25/2024 until 02/23/2025 [facility] Work Phone: Comment on above: 1 Occurrences starting 01/25/2024 until 02/23/2025 End: 05-26-2025 CT Chest WO contrast CT CHEST WO IVCON Radiology Routine History of renal cell cancer 1 Occurrences starting 04/26/2024 until 05/26/2025 [facility] Comment on above: 1 Occurrences starting 04/26/2024 until 05/26/2025 End: 12-21-2024 ECG COMPLETE ECG COMPLETE ECG Routine Renal mass Gross hematuria Other specified disorders of kidney and ureter 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) 1 Occurrences starting 12/21/2023 until 12/21/2024 [facility] Work Phone: Comment on above: 1 Occurrences starting 12/21/2023 until 12/21/2024 End: 02-23-2025 MR Abdomen WO and W contrast IV MRI ABDOMEN WO/W IVCON Radiology Routine Renal cell carcinoma of left kidney (HCC) 1 Occurrences starting 01/25/2024 until 02/23/2025 [facility] Work Phone: Comment on above: 1 Occurrences starting 01/25/2024 until 02/23/2025 End: 05-26-2025 MR Abdomen WO and W contrast IV MRI ABDOMEN WO/W IVCON Radiology Routine History of renal cell cancer 1 Occurrences starting 04/26/2024 until 05/26/2025 [facility] Comment on above: 1 Occurrences starting 04/26/2024 until 05/26/2025 End: 06-07-2025 Renal function 2000 panel - Serum or Plasma RENAL FUNCTION PANEL Lab Routine Stage 3b chronic kidney disease (HCC) H/O left nephrectomy Once per week for 4 Occurrences starting 06/07/2024 until 06/07/2025, 1 completed [facility] Work Phone: Comment on above: Once per week for 4 Occurrences starting 06/07/2024 until 06/07/2025, 1 completed [facility] Immunizations Immunization Date Immunization Notes Care Provider Renée daily 09-17-2023 influenza virus vaccine, unspecified formulation Davey JARA [facility] 01-04-2023 zoster vaccine recombinant Delgado SALAM [facility] 10-24-2022 zoster vaccine recombinant Delgado SALAM [facility] 09-18-2022 influenza virus vaccine, unspecified formulation Kenji Avalos [facility] 09-18-2022 SARS-CoV-2 (COVID-19 ) [id number] [facility] 09-26-2021 SARS-CoV-2 (COVID-19 ) mRNA BNT-162b2 vax [facility] 09-01-2021 influenza virus vaccine, unspecified formulation [facility] 03-17-2021 SARS-CoV-2 (COVID-19 ) mRNA BNT-162b2 vax [facility] 02-20-2021 SARS-CoV-2 (COVID-19 ) mRNA BNT-162b2 vax [facility] 09-09-2020 influenza virus vaccine, unspecified formulation [facility] 09-02-2020 influenza virus vaccine, unspecified formulation [facility] 09-13-2019 influenza virus vaccine, unspecified formulation [facility] 09-20-2018 influenza virus vaccine, unspecified formulation [facility] 09-06-2017 influenza, unspecifi ed formulation [facility] 09-18-2015 influenza virus vaccine, unspecified formulation [facility] 08-28-2014 influenza virus vaccine, unspecified formulation [facility] 09-04-2010 influenza virus vaccine, unspecified formulation [facility] 07-03-2010 hepatitis A and hepatitis B vaccine [facility] 01-30-2010 hepatitis A and hepatitis B vaccine [facility] 01-02-2010 hepatitis A and hepatitis B vaccine [facility] Payers Date Payer Category Payer Medicare MEDICARE MEDICAR E A AND B [id number] 2024-Present [phone] [place] [address] Medicare [id number] 2024 Medicare [id number] 2023 Unknown [id number] 2021 Unknown [id number] 1959 Unknown [id number] 1959 Unknown [id number] [id number] 3 1959 Unknown [id number] [id number] 3 1959 Unknown [id number] 2.16.840.1.149099.3.579.2.59 3 1959 Unknown [id number] 2.16.840.1.913553.3.579.2.12 59 1959 Unknown [id number] 2.16.840.1.106498.3.579.2.72 7 1959 Unknown [id number] 2.16.840.1.064864.3.579.2.72 7 1959 Unknown [id number] 2.16.840.1.447795.3.579.2.72 7 1959 Unknown [id number] 2.16.840.1.954557.3.579.2.72 7 1959 Unknown [id number] 2.16.840.1.890931.3.579.2.72 7 1959 Unknown [id number] 2.16.840.1.209953.3.579.2.72 7 1959 Unknown [id number] 2.16.840.1.008326.3.579.2.72 7 1959 Unknown [id number] 2.16.840.1.029088.3.579.2.72 7 1959 Unknown [id number] 2.16.840.1.969237.3.579.2.72 7 1959 Unknown [id number] [id number] 7 1959 Unknown [id number] 7 Worker's Compensation [id number] Social History Date Type Detail Facility Start: 02-18-2023 End: 03-24-2024 Tobacco smoking status Ex-smoker (finding) [facility] Start: 12-21-2023 End: 01-05-2024 Sex Assigned At Male [facility] Start: 11-11-2023 Tobacco smoking status Never [facility] History of tobacco use Current smoker [facility] History of tobacco use Cigarette Smoker [facility] Start: 01-05-2024 End: 03-24-2024 Tobacco use and exposure Smokeless tobacco non-user [facility] Start: 01-05-2024 End: 06-07-2024 Alcohol intake Current drinker of alcohol (finding) [facility] Start: 12-21-2023 End: 01-05-2024 History of Social function [facility] Start: 01-05-2024 Tobacco Comment Been over 30 y ears since had a cigarette [facility] Start: 01-05-2024 Alcohol Comment may have a dri nk 2x per week [facility] Start: 1960 Sex Assigned At Not on file [facility] Tobacco smoking status NHIS Tobacco smoking consumption unknown [facility] Work Phone: Start: 1960 Sex Assigned At Male [facility] Start: 04-18-2024 Gender identity Identifies as male gender (finding) [facility] NEGATED: Highlighted rowStart: NINF History of tobacco use Passive smoker [facility] Medical Equipment Procedure Code Equipment Code Equipment [...] 11-30-2023 Functional Status N/A [facility] 09-24-2023 Functional Status N/A [facility] 07-12-2023 Functional Status N/A [facility] 05-05-2023 Functional Status N/A [facility] 02-18-2023 Functional Status N/A [facility] Clinical Notes 02-18-2023 to 06-07-2024 Patient InstructionsJayne Silveira MD - 06/07/2024 11:55 AM Jada Beckford APRN.[facility] - 04/26/2024 2:30 PM [facility] Chung Contreras [facility] - 04/25/2024 11:00 AM EDT Note Date & Type Note Facility 06-07-2024 Instructions Jayne Silveira MD - 06/07/2024 12:29 PM EDT Today, we will measure kidney function and urine protein. Please restart lisinopril 5 mg on Wednesday, June 10 unless I call you and tell you otherwise. One week after restarting lisinopril, go to lab for kidney function re-check on medication. I will refill your prescription for 90 days after I confirm your kidney function is stable. documented in this encounter [facility] 06-07-2024 Note HNO ID: [id number] Author: JAYNE SILVEIRA MD Service: ? Author Type: Physician Type: Progress Notes Filed: 06/13/2024 20:40 Note Text: Department of Kidney Medicine Medical Specialties [facility] SERVICE DATE: 06/07/2024 SERVICE TIME: 11:55 AM CHIEF COMPLAINT: solitary kidney HPI: Mr. Ledesma is a 64 year old male who presents with AVANI, esophageal ulcer, BPH, s/p left nephrectomy for RCC with baseline pre-nephx creatinine 1.3 and symmetrical renal function with evidence of stable CKD stage 3a confirmed by cystatin C measurement after renal mass reduction (eGFRcr 47 and eGFRcys 57, combined 54). This is better than predicted by baseline creatinine. BP 108 - 133/70 - 80s with home BP. Off lisinopril 5 mg since May 16 with BP 109- 120s/80s. Was taking at night. SOCIAL HISTORY: Social History Tobacco Use Smoking status: Former Types: Cigarettes Passive exposure: Never Smokeless tobacco: Never Tobacco comments: Been over 30 years since had a cigarette Substance Use Topics Alcohol use: Yes Comment: may have a drink 2x per week Drug use: Never MEDICATIONS: lisinopril (ZESTRIL) 5 mg tablet Take 1 tablet by mouth once daily. vibegron (GEMTESA) 75 mg tablet Take by mouth. allopurinol (ZYLOPRIM) 300 mg tablet 1 tablet Orally Once a day for 90 days tamsulosin (FLOMAX) 0.4 mg Take 1 capsule by mouth daily at bedtime. ALLERGIES: ALLERGIES No Known Allergies ROS: no F/C/N/V/D/SOB/CP, no hematuria, no dysuria, no frothy. PHYSICAL EXAM: BP 165/87 (BP Site: Right Arm, BP Position: Sitting, BP Cuff Size: Regular Adult) Pulse 74 Ht 177.8 cm (5' 10 ) Wt 84.5 kg (186 lb 4.6 oz) BMI 26.73 kg/m? BP - standardized method Pulse 1 BP #1: 172/90 Pulse #1: 73 beats/min 2 BP #2 : 159/87 Pulse #2 : 76 beats/min 3 BP #3 : 165/85 Pulse #3 : 75 beats/min Average Average BP: 165/87 Average Pulse: 74 beats/min Orthostatic vitals Supine Sitting Standing Standing BP : 155/78 Standing pulse : 77 BP cuff location BP cuff location: Right upper arm BP cuff size BP cuff size: regular adult Comments for BP values First BP (right) First BP (left) Constitutional: No acute distress, Responsive, Normal habitus, and Well-nourished Eyes: Conjunctiva clear, Noscleral icterus, and PERRL Ear, Nose, and Throat: Hearing normal, Lips normal, and Dentition normal Neck:Trachea midline No jugular venous distension Thyroid exam normal Cardiovascular:Regular rate and rhythm, normal S1 and S2, no murmurs, rubs, or gallops No peripheral edema Respiratory: Normal respiratory effort. Lungs clear bilaterally. Normal to palpation bilaterally. Normal to percussion bilaterally. Abdomen:Soft, non-tender, non-distended. Normal bowel sounds. No hepatosplenomegaly. Musculoskeletal: No clubbing or cyanosis of digits., Normocephalic., and No muscle weakness, joint tenderness, or joint effusions. Psychiatric: Alert and oriented x self, place, time, and setting Normal mood/affect DATA: Diagnostic tests reviewed for today's visit: Blood work, imaging studies, and office notes were reviewed in epic Latest Reference Range AND Units 06/07/24 13:04 Sodium 136 - 144 mmol/L 143 Potassium 3.7 - 5.1 mmol/L 4.4 Chloride 98 - 107 mmol/L 104 CO2 22 - 30 mmol/L 27 BUN 9 - 24 mg/dL 25 (H) Creatinine 0.73 - 1.22 mg/dL 1.53 (H) Glucose 74 - 99 mg/dL 94 Calcium 8.5 - 10.2 mg/dL 10.2 Phosphorus 2.7 - 4.8 mg/dL 2.9 Albumin 3.9 - 4.9 g/dL 4.6 Anion Gap 8 - 15 mmol/L 12 eGFR >=60 mL/min/1.73m? 50 (L) Cystatin C 0.61 - 0.95 mg/L 1.23 (H) Cystatin C eGFR >=60 mL/min/1.73m? 58 (L) (H): Data is abnormally high (L): Data is abnormally low Latest Reference Range AND Units 06/07/24 10:46 Creatinine, Ur Random (UCRR) 20.0 - 300.0 mg/dL 36.7 Protein, Urine Random 0 - 20 mg/dL <4 Color Yellow Yellow Clarity Clear Clear Specific [place], Ur 1.005 - 1.030 1.008 pH, Urine <8.5 6.5 Protein, Urine Negative Negative Glucose, Urine Negative Negative Ketones, Urine Negative Negative Bilirubin, Urine Negative Negative Hemoglobin/Blood,Ur Negative Negative Urobilinogen 0.2-1.0 EU/dL 0.2 EU/dL Leukest Negative Trace ! Nitrites Negative Negative Protein/Creat Ratio <0.15 mg/mg <0.11 !: Data is abnormal ASSESSMENT: 64 year old male who presents with AVANI, esophageal ulcer, BPH, s/p left nephrectomy for RCC with baseline pre-nephx creatinine 1.3 and symmetrical renal function with evidence of stable CKD stage 3a confirmed by cystatin C measurement after renal mass reduction that remains stable (stage G3aA1) with normal protein excretion. He may have WCH as BP here appear uncontrolled and BP at home consistently optimal. Metabolic and volume status are appropriate. PLAN: - will check renal function now and after restarting lisinopril nightly - recommend ACEi for renoprotection in the setting of solitary kidney and for BP control - ask AA (more content not included)... [facility] 06-07-2024 History of Present illness Narrative Department of Kidney Medicine Medical Specialties [facility] SERVICE DATE: 06/07/2024 SERVICE TIME: 11:55 AM CHIEF COMPLAINT: solitary kidney HPI: Mr. Ledesma is a 64 year old male who presents with AVANI, esophageal ulcer, BPH, s/p left nephrectomy for RCC with baseline pre-nephx creatinine 1.3 and symmetrical renal function with evidence of stable CKD stage 3a confirmed by cystatin C measurement after renal mass reduction (eGFRcr 47 and eGFRcys 57, combined 54). This is better than predicted by baseline creatinine. BP 108 - 133/70 - 80s with home BP. Off lisinopril 5 mg since May 16 with BP 109- 120s/80s. Was taking at night. SOCIAL HISTORY: Social History Tobacco Use Smoking status: Former Types: Cigarettes Passive exposure: Never Smokeless tobacco: Never Tobacco comments: Been over 30 years since had a cigarette Substance Use Topics Alcohol use: Yes Comment: may have a drink 2x per week Drug use: Never MEDICATIONS: lisinopril (ZESTRIL) 5 mg tablet Take 1 tablet by mouth once daily. vibegron (GEMTESA) 75 mg tablet Take by mouth. allopurinol (ZYLOPRIM) 300 mg tablet 1 tablet Orally Once a day for 90 days tamsulosin (FLOMAX) 0.4 mg Take 1 capsule by mouth daily at bedtime. ALLERGIES: ALLERGIES No Known Allergies ROS: no F/C/N/V/D/SOB/CP, no hematuria, no dysuria, no frothy. PHYSICAL EXAM: BP 165/87 (BP Site: Right Arm, BP Position: Sitting, BP Cuff Size: Regular Adult) Pulse 74 Ht 177.8 cm (5' 10 ) Wt 84.5 kg (186 lb 4.6 oz) BMI 26.73 kg/m BP - standardized method Pulse 1 BP #1: 172/90 Pulse #1: 73 beats/min 2 BP #2 : 159/87 Pulse #2 : 76 beats/min 3 BP #3 : 165/85 Pulse #3 : 75 beats/min Average Average BP: 165/87 Average Pulse: 74 beats/min Orthostatic vitals Supine Sitting Standing Standing BP : 155/78 Standing pulse : 77 BP cuff location BP cuff location: Right upper arm BP cuff size BP cuff size: regular adult Comments for BP values First BP (right) First BP (left) Constitutional: No acute distress, Responsive, Normal habitus, and Well-nourished Eyes: Conjunctiva clear, Noscleral icterus, and PERRL Ear, Nose, and Throat: Hearing normal, Lips normal, and Dentition normal Neck:Trachea midline No jugular venous distension Thyroid exam normal Cardiovascular:Regular rate and rhythm, normal S1 and S2, no murmurs, rubs, or gallops No peripheral edema Respiratory: Normal respiratory effort. Lungs clear bilaterally. Normal to palpation bilaterally. Normal to percussion bilaterally. Abdomen:Soft, non-tender, non-distended. Normal bowel sounds. No hepatosplenomegaly. Musculoskeletal: No clubbing or cyanosis of digits., Normocephalic., and No muscle weakness, joint tenderness, or joint effusions. Psychiatric: Alert and oriented x self, place, time, and setting Normal mood/affect DATA: Diagnostic tests reviewed for today's visit: Blood work, imaging studies, and office notes were reviewed in [facility] Latest Reference Range & Units 06/07/24 13:04 Sodium 136 - 144 mmol/L 143 Potassium 3.7 - 5.1 mmol/L 4.4 Chloride 98 - 107 mmol/L 104 CO2 22 - 30 mmol/L 27 BUN 9 - 24 mg/dL 25 (H) Creatinine 0.73 - 1.22 mg/dL 1.53 (H) Glucose 74 - 99 mg/dL 94 Calcium 8.5 - 10.2 mg/dL 10.2 Phosphorus 2.7 - 4.8 mg/dL 2.9 Albumin 3.9 - 4.9 g/dL 4.6 Anion Gap 8 - 15 mmol/L 12 eGFR >=60 mL/min/1.73m 50 (L) Cystatin C 0.61 - 0.95 mg/L 1.23 (H) Cystatin C eGFR >=60 mL/min/1.73m 58 (L) (H): Data is abnormally high (L): Data is abnormally low Latest Reference Range & Units 06/07/24 10:46 Creatinine, Ur Random (UCRR) 20.0 - 300.0 mg/dL 36.7 Protein, Urine Random 0 - 20 mg/dL <4 Color Yellow Yellow Clarity Clear Clear Specific [place], Ur 1.005 - 1.030 1.008 pH, Urine <8.5 6.5 Protein, Urine Negative Negative Glucose, Urine Negative Negative Ketones, Urine Negative Negative Bilirubin, Urine Negative Negative Hemoglobin/Blood,Ur Negative Negative Urobilinogen 0.2-1.0 EU/dL 0.2 EU/dL Leukest Negative Trace ! Nitrites Negative Negative Protein/Creat Ratio <0.15 mg/mg <0.11 !: Data is abnormal ASSESSMENT: 64 year old male who presents with AVANI, esophageal ulcer, BPH, s/p left nephrectomy for RCC with baseline pre-nephx creatinine 1.3 and symmetrical renal function with evidence of stable CKD stage 3a confirmed by cystatin C measurement after renal mass reduction that remains stable (stage G3aA1) with normal protein excretion. He may have WCH as BP here appear uncontrolled and BP at home consistently optimal. Metabolic and volume status are appropriate. PLAN: - will check renal function now and after restarting lisinopril nightly - recommend ACEi for renoprotection in the setting of solitary kidney and for BP control - ask AA if she can locate records that were sent for my review. Parts of A/P may have been copied from prior entry and amended as needed. It reflects full evaluations and pathophysiology processes involved. I spent a total of 30 minutes on the date of the service which included preparing to see the patient, [id number] patient care, completing clinical documentation, obtaining and/or reviewing separately obtained history, performing a medically appropriate examination, counseling and educating the patient/family/caregiver, and ordering medications, tests, or procedures. Visit CPLX Inherent E&M Associated with [facility] ([id number]) SIGNATURE: Jayne Silveira MD PATIENT NAME: Ashley Whitneyfer DATE: June 07, 2024 TIME: 11:55 AM CC: PRIMARY CARE PHYSICIAN: Adan Lamar MD documented in this encounter [facility] 06-07-2024 Note Patient Outreach (KI DMMN) ASHLEY LEDESMA ([id number]) 1960 M Date Time Provider Department 06/07/24 JAYNE SILVEIRA During your visit today, we recorded the following information about you: Allergies As of Date: 06/07/2024 (No Known Allergies) Date Reviewed: 06/07/2024 Reviewed by: Julia Senior OCCA - Fully Assessed Visit Diagnoses:Screening for genitourinary condition [Z13.89] Stage 3b chronic kidney disease (HCC) [N18.32] H/O left nephrectomy [Z90.5] Order(s):URINALYSIS, REFLEX MICROSCOPIC [BMS5990] Order #: [id number]. #:[id number] PROTEIN / CREATININE RATIO [SQPRATIO] Order #: [id number]. #:[id number] Prescriptions as of 06/12/2024 - lisinopril (ZESTRIL) 5 mg tablet Take 1 tablet by mouth once daily. - vibegron (GEMTESA) 75 mg tablet Take by mouth. - allopurinol (ZYLOPRIM) 300 mg tablet 1 tablet Orally Once a day for 90 days - tamsulosin (FLOMAX) 0.4 mg Take 1 capsule by mouth daily at bedtime. Problem List As Of Date 06/07/2024 Noted Resolved Ulcer of esophagus [K22.10] 05/05/2023 Gout [M10.9] 01/04/2024 Erectile dysfunction [N52.9] 09/24/2023 Benign prostatic hyperplasia with urinary obstr*09/24/2023 History of esophageal ulcer [Z87.19] 01/06/2024 Sleep apnea [G47.30] 01/06/2024 Renal mass [N28.89] 01/06/2024 Encounter Status:Closed by [employer], [employer] on 06/12/24 [facility] 04-26-2024 History of Present illness Narrative VIRTUAL VISIT PROGRESS NOTE This is a virtual visit using Audio Only Visit. It required patient-provider interaction for the medical decision making as documented below. I have communicated my name and active licensure. The patient's identity and physical location were verified at the time of this visit. Either the patient or their legal resources representative has been informed of the risks and benefits of -- and alternatives to -- treatment through a remote evaluation and consents to proceed with the evaluation remotely. Persons Present: patient Chief Complaint/Reason: follow up Clinic note from 01/25/2024 copied and updated. HPI: Ashley Ledesma is a 63 year old male with history of left renal mass discovered incidentally upon gross hematuria work up who presents for follow up evaluation. He is . FINAL DIAGNOSIS A. 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 - Surgical margins are negative. - See synoptic template. Last seen via virtual visit 01/25/24. Plan to f/u in 3 months with MRI abdomen, CT chest, and CMP. Nephrology consulted. MRI ABDOMEN WO/W IVCON 04/25/2024 IMPRESSION: Status post LEFT nephrectomy with expected postoperative changes. No definite residual/recurrent disease or abdominal metastasis. 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 CT CHEST WO IVCON 04/25/2024 IMPRESSION: 1. Stable scattered small pulmonary nodules measuring up to 4 mm. Recommend follow-up as warranted by patient's history of renal cell carcinoma. 2. No thoracic lymphadenopathy. Seen by nephrology (Dr. Silveira) on 03/24/24. Creatinine 1.63 (03/24/24). Interval Hx: Overall, doing well. Feels well. No flank or abdominal pain. No gross hematuria. Data Reviewed: Most recent labs and imaging results. Most recent surgical pathology Labs: Creatinine Date Value Ref Range Status 03/24/2024 1.63 (H) 0.73 - 1.22 mg/dL Final 01/09/2024 1.70 (H) 0.73 - 1.22 mg/dL Final 01/08/2024 1.77 (H) 0.73 - 1.22 mg/dL Final 01/07/2024 1.66 (H) 0.73 - 1.22 mg/dL Final Imaging: CT CHEST WO IVCON: 01/05/2023 IMPRESSION: No CT evidence of acute abnormality. No findings of metastatic disease in the thorax. NM RENAL FLOW/FXN WO PHARM: 01/05/2023 IMPRESSION: 1. Normal right renal perfusion and function. 2. Enlarged left kidney with preserved function, but delayed drainage. 3. Split renal function: Left- 49%; right- 51% MRI KIDNEY W/WO IVCON: 01/04/2024 IMPRESSION: 12.7 cm left upper pole renal neoplasm with invasion of the renal sinus fat. No vascular involvement. No retroperitoneal lymphadenopathy. No metastatic disease in the visualized upper abdomen. HISTORY REVIEWED (electronic chart updated): No past medical history on file. No past surgical history on file. No family history on file. Social History Tobacco Use Smoking status: Former Types: Cigarettes Passive exposure: Never Smokeless tobacco: Never Tobacco comments: Been over 30 years since had a cigarette Substance Use Topics Alcohol use: Yes Comment: may have a drink 2x per week Drug use: Never Current Outpatient Medications Medication Sig lisinopril (ZESTRIL) 5 mg tablet Take 1 tablet by mouth once daily. vibegron (GEMTESA) 75 mg tablet Take by mouth. allopurinol (ZYLOPRIM) 300 mg tablet 1 tablet Orally Once a day for 90 days tamsulosin (FLOMAX) 0.4 mg Take 1 capsule by mouth daily at bedtime. No current facility-administered medications for this visit. ALLERGIES No Known Allergies REVIEW OF SYSTEMS: GENERAL: activity level is normal GI: no abdominal pain : no gross hematuria PHYSICAL EXAMINATION: VIDEO EXAM: (if completed, performed via video enabled technology) No exam performed- patient unable to connect to virtual platform due to technical difficulty ASSESSMENT: (Z08, Z00.371) Encounter for follow-up surveillance of kidney cancer (primary encounter diagnosis) (Z85.907) History of renal cell cancer (Z90.5) H/O left nephrectomy (N18.31) Stage 3a chronic kidney disease (HCC) (K86.2) Pancreatic cyst 63 year old male s/p robotic left radical nephrectomy on 01/06/[address] Lindsey We discussed imaging results with stable findings and without evidence of RCC recurrence or metastatic disease Discussed NCCN guidelines for surveillance Discussed rationale for referral to gastroenterology for evaluation of pancreatic cystic lesions Following with nephrology for CKD PLAN: -Consult gastroenterology for evaluation of pancreatic cystic lesions- provided with scheduling phone number -Continue to follow with nephrology for CKD -Follow up virtual visit in 6 months with MRI abdomen, CT chest, and CMP checked prior to visit There are no Patient Instructions on file for this visit. I spent a total of 20 minutes on the date of the service which included preparing to see the patient, [id number] patient care, completing clinical documentation, counseling and educating the patient/family/caregiver, and ordering medications, tests, or procedures Encounter converted to a telephone visit (audio only) due to insurmountable technological challenges. Jada Santo APRN.CNP documented in this encounter [facility] 04-26-2024 Note HNO ID: [id number] Author: JADA SANTO APRN.CNP Service: ? Author Type: Nurse Practitioner Type: Progress Notes Filed: 04/26/2024 16:53 Note Text: VIRTUAL VISIT PROGRESS NOTE This is a virtual visit using Audio Only Visit. It required patient-provider interaction for the medical decision making as documented below. I have communicated my name and active licensure. The patient's identity and physical location were verified at the time of this visit. Either the patient or their legal resources representative has been informed of the risks and benefits of -- and alternatives to -- treatment through a remote evaluation and consents to proceed with the evaluation remotely. Persons Present: patient Chief Complaint/Reason: follow up Clinic note from 01/25/2024 copied and updated. HPI: Ashley Ledesma is a 63 year old male with history of left renal mass discovered incidentally upon gross hematuria work up who presents for follow up evaluation. He is . FINAL DIAGNOSIS A. 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 - Surgical margins are negative. - See synoptic template. Last seen via virtual visit 01/25/24. Plan to f/u in 3 months with MRI abdomen, CT chest, and CMP. Nephrology consulted. MRI ABDOMEN WO/W IVCON 04/25/2024 IMPRESSION: Status post LEFT nephrectomy with expected postoperative changes. No definite residual/recurrent disease or abdominal metastasis. 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 CT CHEST WO IVCON 04/25/2024 IMPRESSION: 1. Stable scattered small pulmonary nodules measuring up to 4 mm. Recommend follow-up as warranted by patient's history of renal cell carcinoma. 2. No thoracic lymphadenopathy. Seen by nephrology (Dr. Silveira) on 03/24/24. Creatinine 1.63 (03/24/24). Interval Hx: Overall, doing well. Feels well. No flank or abdominal pain. No gross hematuria. Data Reviewed: Most recent labs and imaging results. Most recent surgical pathology Labs: Creatinine Date Value Ref Range Status 03/24/2024 1.63 (H) 0.73 - 1.22 mg/dL Final 01/09/2024 1.70 (H) 0.73 - 1.22 mg/dL Final 01/08/2024 1.77 (H) 0.73 - 1.22 mg/dL Final 01/07/2024 1.66 (H) 0.73 - 1.22 mg/dL Final Imaging: CT CHEST WO IVCON: 01/05/2023 IMPRESSION: No CT evidence of acute abnormality. No findings of metastatic disease in the thorax. NM RENAL FLOW/FXN WO PHARM: 01/05/2023 IMPRESSION: 1. Normal right renal perfusion and function. 2. Enlarged left kidney with preserved function, but delayed drainage. 3. Split renal function: Left- 49%; right- 51% MRI KIDNEY W/WO IVCON: 01/04/2024 IMPRESSION: 12.7 cm left upper pole renal neoplasm with invasion of the renal sinus fat. No vascular involvement. No retroperitoneal lymphadenopathy. No metastatic disease in the visualized upper abdomen. HISTORY REVIEWED (electronic chart updated): No past medical history on file. No past surgical history on file. No family history on file. Social History Tobacco Use Smoking status: Former Types: Cigarettes Passive exposure: Never Smokeless tobacco: Never Tobacco comments: Been over 30 years since had a cigarette Substance Use Topics Alcohol use: Yes Comment: may have a drink 2x per week Drug use: Never Current Outpatient Medications Medication Sig lisinopril (ZESTRIL) 5 mg tablet Take 1 tablet by mouth once daily. vibegron (GEMTESA) 75 mg tablet Take by mouth. allopurinol (ZYLOPRIM) 300 mg tablet 1 tablet Orally Once a day for 90 days tamsulosin (FLOMAX) 0.4 mg Take 1 capsule by mouth daily at bedtime. No current facility-administered medications for this visit. ALLERGIES No Known Allergies REVIEW OF SYSTEMS: GENERAL: activity level is normal GI: no abdominal pain : no gross hematuria PHYSICAL EXAMINATION: VIDEO EXAM: (if completed, performed via video enabled technology) No exam performed- patient unable to connect to virtual platform due to technical difficulty ASSESSMENT: (Z08, Z85.528) Encounter for follow-up surveillance of kidney cancer (primary encounter diagnosis) (Z85.528) History of renal cell cancer (Z90.5) H/O left nephrectomy (N18.31) Stage 3a chronic kidney disease (HCC) (K86.2) Pancreatic cyst 63 year old male s/p robotic left radical nephrectomy on 01/06/[address] Lindsey We discussed imaging results with stable findings and without evidence of RCC recurrence or metastatic disease Discussed NCCN guidelines for surveillance Discussed rationale for referral to gastroenterology for evaluation of pancreatic cystic lesions Following with nephrology for CKD PLAN: -Consult gastroenterology for evaluation of pancreatic cystic lesions- provided with scheduling phone number -Continue to follow with nephrology for CKD -Follow up virtual visit in 6 months wi (more content not included)... [facility] 04-25-2024 Miscellaneous Notes Radiology Service Progress Note DATE OF SERVICE: April 25, 2024 TIME: 8:39 AM PATIENT IDENTITY VERIFICATION COMPLETED USING TWO (2) STANDARD IDENTIFIERS: Name and Date of confirmed by patient verbally and Name and Date of confirmed by identification band. FALL SCREENING: Has the patient had 2 falls in the last year or 1 fall with injury or currently using an Ambulatory Assistive Device (Walker, Cane, Wheelchair, Crutches, etc.)? No PATIENT GENDER DATA: Male PATIENT RELEVANT IMPLANT DATA REVIEWED: Yes PATIENT PRESENTS WITH AN IMPLANTABLE OR ATTACHED WATER POLLUTION CONTROL TECHNICIAN: No ALLERGIES: Reviewed and unchanged CONTRAST ALLERGY: NO. EXAM: MRI - CONTRAST TYPE: GROUP II PERIPHERAL IV DATA: Ambulatory: A peripheral IV was started in the Right antecubital site with a Angio cath: 24 gauge. RADIOLOGY DEPARTMENT: MR; Exam(s) Completed: Body: Renal SIGNATURE: Chung Rider MRI Tech PATIENT NAME: Ashley Ledesma DATE: April 25, 2024 TIME: 8:39 AM documented in this encounter [facility] 04-25-2024 Progress note Formatting of t his note is different from the original. Radiology Service Progress Note DATE OF SERVICE: April 25, 2024 TIME: 8:39 AM PATIENT IDENTITY VERIFICATION COMPLETED USING TWO (2) STANDARD IDENTIFIERS: Name and Date of confirmed by patient verbally and Name and Date of confirmed by identification band. FALL SCREENING: Has the patient had 2 falls in the last year or 1 fall with injury or currently using an Ambulatory Assistive Device (Walker, Cane, Wheelchair, Crutches, etc.)? No PATIENT GENDER DATA: Male PATIENT RELEVANT IMPLANT DATA REVIEWED: Yes PATIENT PRESENTS WITH AN IMPLANTABLE OR ATTACHED WATER POLLUTION CONTROL TECHNICIAN: No ALLERGIES: Reviewed and unchanged CONTRAST ALLERGY: NO. EXAM: MRI - CONTRAST TYPE: GROUP II PERIPHERAL IV DATA: Ambulatory: A peripheral IV was started in the Right antecubital site with a Angio cath: 24 gauge. RADIOLOGY DEPARTMENT: MR; Exam(s) Completed: Body: Renal SIGNATURE: Chung Rider MRI Tech PATIENT NAME: Ashley Ledesma DATE: April 25, 2024 TIME: 8:39 AM T [facility] 04-25-2024 Note HNO ID: [id number] Author: NISHANT DE LA ROSA RT(R) Service: Radiology Author Type: Puncher Type: Progress Notes Filed: 04/25/2024 07:54 Note Text: Radiology Service Progress Note PATIENT NAME: Ashley Ledesma DATE OF SERVICE: April 25, 2024 TIME: 7:54 AM PATIENT IDENTITY VERIFICATION COMPLETED USING TWO (2) IDENTIFIERS: Name and Date of confirmed by patient verbally and Name and Date of confirmed by identification band. FALL SCREENING: Has the patient had 2 falls in the last year or 1 fall with injury or currently using an Ambulatory Assistive Device (Walker, Cane, Wheelchair, Crutches, etc.)? No PATIENT GENDER DATA: Male PATIENT RELEVANT IMPLANT DATA REVIEWED: Not Applicable PATIENT PRESENTS WITH AN IMPLANTABLE OR ATTACHED WATER POLLUTION CONTROL TECHNICIAN: No RADIOLOGY DEPARTMENT: CT; Exam(s) Completed: Chest PERIPHERAL IV DATA: Not applicable SIGNED BY: RT Joe(R) April 25, 2024 7:54 AM [facility] 04-25-2024 History of Present illness Narrative Radiology Service Progress Note PATIENT NAME: Ashley Ledesma DATE OF SERVICE: April 25, 2024 TIME: 7:54 AM PATIENT IDENTITY VERIFICATION COMPLETED USING TWO (2) IDENTIFIERS: Name and Date of confirmed by patient verbally and Name and Date of confirmed by identification band. FALL SCREENING: Has the patient had 2 falls in the last year or 1 fall with injury or currently using an Ambulatory Assistive Device (Walker, Cane, Wheelchair, Crutches, etc.)? No PATIENT GENDER DATA: Male PATIENT RELEVANT IMPLANT DATA REVIEWED: Not Applicable PATIENT PRESENTS WITH AN IMPLANTABLE OR ATTACHED WATER POLLUTION CONTROL TECHNICIAN: No RADIOLOGY DEPARTMENT: CT; Exam(s) Completed: Chest PERIPHERAL IV DATA: Not applicable SIGNED BY: RT Joe(R) April 25, 2024 7:54 AM documented in this encounter [facility] 04-11-2024 Note HNO ID: [id number] Author: JAYNE SILVEIRA MD Service: ? Author Type: Physician Type: Progress Notes Filed: 04/11/2024 13:04 Note Text: Have decided to reduce lisinopril to 5 mg daily due to better BP at home of 120-130/70-80s with consistently high morning readings of 150s [facility] 04-11-2024 History of Present illness Narrative Have decided to reduce lisinopril to 5 mg daily due to better BP at home of 120-130/70-80s with consistently high morning readings of 150s documented in this encounter [facility] 03-24-2024 Instructions Jayne Silveira MD - 03/24/2024 9:15 AM EDT Today, we will measure kidney function, blood count, urine protein, and uric acid. I will also reach out to the hospitals to get information about your prior kidney function. Agree with obtaining an [employer] BP monitor and please follow instructions on taking BP (sheet). Recommend checking BP 3 - 5 times/week. Please AVOID NSAID medications (sheet) Please follow a heart healthy diet with lots of fruits and vegetables and low sodium. documented in this encounter [facility] 03-24-2024 History of Present illness Narrative [facility] NE[facility]ERT[facility] [facility] SERVICE DATE: 03/23/2024 SERVICE TIME: 3:59 PM CHIEF COMPLAINT: CKD, acquired solitary kidney HPI: Mr. 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 Pre-nephx creatinine 1.3 - 1.5 and post 1.7. No previous JOHN/ARB or other medications prior to nephx. Nuclear scan shows split function of left 49% Right 51% prior to nephx. No history of trauma and issues with kidney function ever mentioned to him by doctors. No family history of kidney disease. Rare use of Aleve. No history of obstructive uropathy. Uses CPAP regularly Home BP monitoring 120s/70s - 130s/70s. PAST MEDICAL HISTORY: ACTIVE PROBLEM LIST Ulcer of Esophagus Gout Erectile Dysfunction Benign Prostatic Hyperplasia With Urinary Obstruction History of Esophageal Ulcer Sleep Apnea Renal Mass Surgical hx Left nephx - 12/2023 Toe trauma s/p surgery tonsillectomy MEDICATIONS: vibegron (GEMTESA) 75 mg tablet Take by mouth. allopurinol (ZYLOPRIM) 300 mg tablet 1 tablet Orally Once a day for 90 days tamsulosin (FLOMAX) 0.4 mg Take 1 capsule by mouth daily at bedtime. Allergies: No Known Allergies Family history; no kidney disease, dad had bladder cancer, gout, dad with HTN, older brother with diet-controlled DM Social History Tobacco Use Smoking status: Former Types: Cigarettes Smokeless tobacco: Never Tobacco comments: Been over 30 years since had a cigarette Substance Use Topics Alcohol use: Yes Comment: may have a drink 2x per week Drug use: Never Occasional alcohol use, not since surgery. ALLERGIES: ALLERGIES No Known Allergies REVIEW OF SYSTEMS: Constitutional: No fever, No chills, and good appetite, no N/V/D, lactose intolerance Cardiovascular: No chest pain or pressure, No dyspnea on exertion, No edema, and No dizziness Genitourinary: No frothy urine, No pink or red urine, and No dysuria no nocturia PHYSICAL EXAM: 03/24/24 0811 BP: 156/81 Pulse: 67 Temp: 36.5 C (97.7 F) TempSrc: Oral Weight: 83.6 kg (184 lb 4.9 oz) Height: 177.8 cm (5' 10 ) BP - standardized method Pulse 1 BP #1: 155/83 Pulse #1: 67 beats/min 2 BP #2 : 158/80 Pulse #2 : 67 beats/min 3 BP #3 : 155/80 Pulse #3 : 68 beats/min Average Average BP: 156/81 Average Pulse: 67 beats/min Orthostatic vitals Supine Sitting Standing Standing BP : 149/83 Standing pulse : 69 BP cuff location BP cuff location: Left upper arm BP cuff size BP cuff size: regular adult Comments for BP values First BP (right) First BP (left) Constitutional:No acute distress, Responsive, Normal habitus, and Well-nourished HEENT - NCAT, PERRL, EOMI, Moist mucus membranes Neck:Trachea midline No jugular venous distension Thyroid exam normal Cardiovascular:No peripheral edema Regular rate and ryhthm, normal S1 and S2, no murmurs, rubs, or gallops Respiratory:Normal respiratory effort. Lungs clear bilaterally. Normal to palpation bilaterally. Normal to percussion bilaterally. Abdomen:Soft, non-tender, non-distended. Normal bowel sounds. No hepatosplenomegaly. Psychiatric: Alert and oriented x self, place, time, and setting Normal mood/affect DATA: Diagnostic tests reviewed for today's visit: Latest Reference Range & Units 03/24/24 09:43 Sodium 136 - 144 mmol/L 143 Potassium 3.7 - 5.1 mmol/L 4.7 Chloride 97 - 105 mmol/L 104 CO2 22 - 30 mmol/L 27 BUN 9 - 24 mg/dL 22 Creatinine 0.73 - 1.22 mg/dL 1.63 (H) Glucose 74 - 99 mg/dL 112 (H) Protein, Total 6.3 - 8.0 g/dL 7.0 Calcium 8.5 - 10.2 mg/dL 10.6 (H) Phosphorus 2.7 - 4.8 mg/dL 3.6 Albumin 3.9 - 4.9 g/dL 4.7 Bilirubin, Total 0.2 - 1.3 mg/dL 1.1 Alkaline Phosphatase 38 - 113 U/L 86 ALT 10 - 54 U/L 10 AST 14 - 40 U/L 18 Anion Gap 9 - 18 mmol/L 12 Uric Acid 4.0 - 8.1 mg/dL 4.8 eGFR >=60 mL/min/1.73m 47 (L) Cystatin C 0.61 - 0.95 mg/L 1.25 (H) WBC 3.70 - 11.00 k/uL 5.53 RBC 4.20 - 6.00 m/uL 4.47 Hemoglobin 13.0 - 17.0 g/dL 12.6 (L) Hematocrit 39.0 - 51.0 % 39.8 Platelet Count 150 - 400 k/uL 148 (L) MCV 80.0 - 100.0 fL 89.0 MCH 26.0 - 34.0 pg 28.2 MCHC 30.5 - 36.0 g/dL 31.7 MPV 9.0 - 12.7 fL 13.6 (H) RDW-CV 11.5 - 15.0 % 15.2 (H) Absolute nRBC <0.01 k/uL <0.01 Cystatin C eGFR >=60 mL/min/1.73m 57 (L) (H): Data is abnormally high (L): Data is abnormally low Latest Reference Range & Units 03/24/24 10:08 Protein/Creat Ratio <0.15 mg/mg <0.10 Creatinine, Ur Random (UCRR) 20.0 - 300.0 mg/dL 41.6 ASSESSMENT: 63 year old male who presents with AVANI, esophageal ulcer, BPH, s/p left nephrectomy for RCC with baseline pre-nephx creatinine 1.3 and symmetrical renal function with evidence of stable CKD stage 3a confirmed by cystatin C measurement after renal mass reduction. This is somewhat surprisingly better renal function than would have predicted based on pre-nephx function and suggests that actual baseline may have been better. BP is suboptimal, metabolic status is normal except for borderline hypercalcemia. Volume status is stable. Protein excretion is normal. He has borderline anemia. Uric acid well-controlled on allopurinol. PLAN: 1. Will obtain previous creatinine levels from [facility] and [facility] to better ascertain baseline function. 2. Will initiate lisinopril 10 mg for BP and renal preservation and follow-up with repeat renal panel to ensure stability of renal function. 3. Have given him instructions on obtaining a BP cuff for home monitoring 4. Strongly recommended to avoid NSAID medications. I spent a total of 60 minutes on the date of the service which included preparing to see the patient, [id number] patient care, completing clinical documentation, obtaining and/or reviewing separately obtained history, performing a medically appropriate examination, counseling and educating the patient/family/caregiver, and ordering medications, tests, or procedures. SIGNATURE: Jayne Silveira MD PATIENT NAME: Ashley Ledesma DATE: March 23, 2024 TIME: 3:59 PM OFFICE NUMBER: [phone] CC: PRIMARY CARE PHYSICIAN: Adan Lamar MD documented in this encounter [facility] 03-24-2024 Note HNO ID: [id number] Author: JAYNE SILVEIRA MD Service: ? Author Type: Physician Type: Progress Notes Filed: 04/11/2024 13:05 Note Text: [facility]YPERTENSION [facility] SERVICE DATE: 03/23/2024 SERVICE TIME: 3:59 PM CHIEF COMPLAINT: CKD, acquired solitary kidney HPI: Mr. 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 Pre-nephx creatinine 1.3 - 1.5 and post 1.7. No previous JOHN/ARB or other medications prior to nephx. Nuclear scan shows split function of left 49% Right 51% prior to nephx. No history of trauma and issues with kidney function ever mentioned to him by doctors. No family history of kidney disease. Rare use of Aleve. No history of obstructive uropathy. Uses CPAP regularly Home BP monitoring 120s/70s - 130s/70s. PAST MEDICAL HISTORY: ACTIVE PROBLEM LIST Ulcer of Esophagus Gout Erectile Dysfunction Benign Prostatic Hyperplasia With Urinary Obstruction History of Esophageal Ulcer Sleep Apnea Renal Mass Surgical hx Left nephx - 12/2023 Toe trauma s/p surgery tonsillectomy MEDICATIONS: vibegron (GEMTESA) 75 mg tablet Take by mouth. allopurinol (ZYLOPRIM) 300 mg tablet 1 tablet Orally Once a day for 90 days tamsulosin (FLOMAX) 0.4 mg Take 1 capsule by mouth daily at bedtime. Allergies: No Known Allergies Family history; no kidney disease, dad had bladder cancer, gout, dad with HTN, older brother with diet-controlled DM Social History Tobacco Use Smoking status: Former Types: Cigarettes Smokeless tobacco: Never Tobacco comments: Been over 30 years since had a cigarette Substance Use Topics Alcohol use: Yes Comment: may have a drink 2x per week Drug use: Never Occasional alcohol use, not since surgery. ALLERGIES: ALLERGIES No Known Allergies REVIEW OF SYSTEMS: Constitutional: No fever, No chills, and good appetite, no N/V/D, lactose intolerance Cardiovascular: No chest pain or pressure, No dyspnea on exertion, No edema, and No dizziness Genitourinary: No frothy urine, No pink or red urine, and No dysuria no nocturia PHYSICAL EXAM: 03/24/24 0811 BP: 156/81 Pulse: 67 Temp: 36.5 ?C (97.7 ?F) TempSrc: Oral Weight: 83.6 kg (184 lb 4.9 oz) Height: 177.8 cm (5' 10 ) BP - standardized method Pulse 1 BP #1: 155/83 Pulse #1: 67 beats/min 2 BP #2 : 158/80 Pulse #2 : 67 beats/min 3 BP #3 : 155/80 Pulse #3 : 68 beats/min Average Average BP: 156/81 Average Pulse: 67 beats/min Orthostatic vitals Supine Sitting Standing Standing BP : 149/83 Standing pulse : 69 BP cuff location BP cuff location: Left upper arm BP cuff size BP cuff size: regular adult Comments for BP values First BP (right) First BP (left) Constitutional:No acute distress, Responsive, Normal habitus, and Well-nourished HEENT - NCAT, PERRL, EOMI, Moist mucus membranes Neck:Trachea midline No jugular venous distension Thyroid exam normal Cardiovascular:No peripheral edema Regular rate and ryhthm, normal S1 and S2, no murmurs, rubs, or gallops Respiratory:Normal respiratory effort. Lungs clear bilaterally. Normal to palpation bilaterally. Normal to percussion bilaterally. Abdomen:Soft, non-tender, non-distended. Normal bowel sounds. No hepatosplenomegaly. Psychiatric: Alert and oriented x self, place, time, and setting Normal mood/affect DATA: Diagnostic tests reviewed for today's visit: Latest Reference Range AND Units 03/24/24 09:43 Sodium 136 - 144 mmol/L 143 Potassium 3.7 - 5.1 mmol/L 4.7 Chloride 97 - 105 mmol/L 104 CO2 22 - 30 mmol/L 27 BUN 9 - 24 mg/dL 22 Creatinine 0.73 - 1.22 mg/dL 1.63 (H) Glucose 74 - 99 mg/dL 112 (H) Protein, Total 6.3 - 8.0 g/dL 7.0 Calcium 8.5 - 10.2 mg/dL 10.6 (H) Phosphorus 2.7 - 4.8 mg/dL 3.6 Albumin 3.9 - 4.9 g/dL 4.7 Bilirubin, Total 0.2 - 1.3 mg/dL 1.1 Alkaline Phosphatase 38 - 113 U/L 86 ALT 10 - 54 U/L 10 AST 14 - 40 U/L 18 Anion Gap 9 - 18 mmol/L 12 Uric Acid 4.0 - 8.1 mg/dL 4.8 eGFR >=60 mL/min/1.73m? 47 (L) Cystatin C 0.61 - 0.95 mg/L 1.25 (H) WBC 3.70 - 11.00 k/uL 5.53 RBC 4.20 - 6.00 m/uL 4.47 Hemoglobin 13.0 - 17.0 g/dL 12.6 (L) Hematocrit 39.0 - 51.0 % 39.8 Platelet Count 150 - 400 k/uL 148 (L) MCV 80.0 - 100.0 fL 89.0 MCH 26.0 - 34.0 pg 28.2 MCHC 30.5 - 36.0 g/dL 31.7 MPV 9.0 - 12.7 fL 13.6 (H) RDW-CV 11.5 - 15.0 % 15.2 (H) Absolute nRBC <0.01 k/uL <0.01 Cystatin C eGFR >=60 mL/min/1.73m? 57 (L) (H): Data is abnormally high (L): Data is abnormally low Latest Reference Range AND Units 03/24/24 10:08 Protein/Creat Ratio <0.15 mg/mg <0.10 Creatinine, Ur Random (UCRR) 20.0 - 300.0 mg/dL 41.6 ASSESSMENT: 63 year old male who presents with AVANI, esophageal ulcer, BPH, s/p left nephrectomy for RCC with baseline pre-nephx creatinine 1.3 and symmetrical renal function with evidence of stable C (more content not included)... [facility] 03-24-2024 Note Patient Outreach (SUKHDEV MAC) ASHLEY LEDESMA ([id number]) 1960 M Date Time Provider Department 03/24/24 JAYNE SILVEIRA During your visit today, we recorded the following information about you: Allergies As of Date: 03/24/2024 (No Known Allergies) Date Reviewed: 01/25/2024 Reviewed by: Jada Santo APRN.YARD HAND - Fully Assessed Visit Diagnosis:Screening for genitourinary condition [Z13.89] Order(s):URINALYSIS, REFLEX MICROSCOPIC [CPF3617] Order #: [id number]. #:[id number] Prescriptions as of 03/27/2024 - vibegron (GEMTESA) 75 mg tablet Take by mouth. - allopurinol (ZYLOPRIM) 300 mg tablet 1 tablet Orally Once a day for 90 days - tamsulosin (FLOMAX) 0.4 mg Take 1 capsule by mouth daily at bedtime. Problem List As Of Date 03/24/2024 Noted Resolved Ulcer of esophagus [K22.10] 05/05/2023 Gout [M10.9] 01/04/2024 Erectile dysfunction [N52.9] 09/24/2023 Benign prostatic hyperplasia with urinary obstr*09/24/2023 History of esophageal ulcer [Z87.19] 01/06/2024 Sleep apnea [G47.30] 01/06/2024 Renal mass [N28.89] 01/06/2024 Encounter Status:Closed by [email or web address] on 03/27/24 [facility] 01-25-2024 History of Present illness Narrative VIRTUAL VISIT PROGRESS NOTE This is a virtual visit using [employer] Video Visit. It required patient-provider interaction for the medical decision making as documented below. I have communicated my name and active licensure. The patient's identity and physical location were verified at the time of this visit. Either the patient or their legal resources representative has been informed of the risks and benefits of -- and alternatives to -- treatment through a remote evaluation and consents to proceed with the evaluation remotely. Persons Present: patient Chief Complaint/Reason: post-op HPI: Ashley Ledesma is a 63 year old male with history of left renal mass discovered incidentally upon gross hematuria work up who presents for post-op evaluation. He is s/p robotic left radical nephrectomy on 01/06/[address] Lindsey. FINAL DIAGNOSIS A. 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 - Surgical margins are negative. - See synoptic template. Hospital course uncomplicated and he was discharged home on 01/09/2024. Interval Hx: Overall, doing well since hospital discharge. Energy levels improving- he is walking outside and on the treadmill. No recent fevers/chills. Improving appetite and tolerating adequate PO intake. Denies constipation. No gross hematuria. Denies abdominal pain. Incisions healing without evidence of infection. No calf pain or swelling. No SOB or CP. Data Reviewed: Most recent labs and imaging results.; surgical pathology Labs: Creatinine Date Value Ref Range Status 01/09/2024 1.70 (H) 0.73 - 1.22 mg/dL Final 01/08/2024 1.77 (H) 0.73 - 1.22 mg/dL Final 01/07/2024 1.66 (H) 0.73 - 1.22 mg/dL Final 01/06/2024 1.50 (H) 0.73 - 1.22 mg/dL Final Imaging: CT CHEST WO IVCON: 01/05/2023 IMPRESSION: No CT evidence of acute abnormality. No findings of metastatic disease in the thorax. NM RENAL FLOW/FXN WO PHARM: 01/05/2023 IMPRESSION: 1. Normal right renal perfusion and function. 2. Enlarged left kidney with preserved function, but delayed drainage. 3. Split renal function: Left- 49%; right- 51% MRI KIDNEY W/WO IVCON: 01/04/2024 IMPRESSION: 12.7 cm left upper pole renal neoplasm with invasion of the renal sinus fat. No vascular involvement. No retroperitoneal lymphadenopathy. No metastatic disease in the visualized upper abdomen. HISTORY REVIEWED (electronic chart updated): No past medical history on file. No past surgical history on file. No family history on file. Social History Tobacco Use Smoking status: Former Types: Cigarettes Smokeless tobacco: Never Tobacco comments: Been over 30 years since had a cigarette Substance Use Topics Alcohol use: Yes Comment: may have a drink 2x per week Drug use: Never Current Outpatient Medications Medication Sig methocarbamol 1,000 mg tablet Take 1 tablet (1,000 mg) by mouth three times a day as needed. vibegron (GEMTESA) 75 mg tablet Take by mouth. allopurinol (ZYLOPRIM) 300 mg tablet 1 tablet Orally Once a day for 90 days sildenafil (VIAGRA) 100 mg tablet take 1 tablet by mouth as directed 1 HOUR PRIOR TO SEXUAL ACTIVITY tiZANidine (ZANAFLEX) 4 mg tablet 2 tablets Orally at bedtime for 15 tamsulosin (FLOMAX) 0.4 mg Take 1 capsule by mouth daily at bedtime. No current facility-administered medications for this visit. ALLERGIES No Known Allergies REVIEW OF SYSTEMS: GENERAL: no fever, energy levels improving RESPIRATORY: no wheezing or shortness of breath CARDIOVASCULAR: no chest pain GI: tolerating PO well and no abdominal pain : no gross hematuria PHYSICAL EXAMINATION: VIDEO EXAM: (if completed, performed via video enabled technology) GENERAL: alert and appropriate, in no distress, well-hydrated, well nourished, and happy, smiling, interactive RESPIRATORY: breathing non-labored CHEST: equal chest rise with normal respiratory effort ASSESSMENT: (C64.2) Renal cell carcinoma of left kidney (HCC) (primary encounter diagnosis) (Z90.5) H/O left nephrectomy (N18.32) Stage 3b chronic kidney disease (HCC) 63 year old male s/p robotic left radical nephrectomy on 01/06/[address] Lindsey. Discussed surgical pathology results and NCCN guidelines for surveillance. Reviewed post-op physical restrictions. Discussed rationale for nephrology consult. PLAN: -Consult nephrology -No lifting >10 lbs for 4 weeks after surgery -Follow up virtual visit in 3 months with MRI abdomen, CT chest, and CMP checked prior to visit Discussed with Dr. Lindsey. There are no Patient Instructions on file for this visit. I spent a total of 30 minutes on the date of the service which included preparing to see the patient, [id number] patient care, completing clinical documentation, counseling and educating the patient/family/caregiver, and ordering medications, tests, or procedures Jada Santo APRN.CNP documented in this encounter [facility] 01-25-2024 Note HNO ID: [id number] Author: JADA SANTO APRN.CNP Service: ? Author Type: Nurse Practitioner Type: Progress Notes Filed: 01/25/2024 14:27 Note Text: VIRTUAL VISIT PROGRESS NOTE This is a virtual visit using [employer] Video Visit. It required patient-provider interaction for the medical decision making as documented below. I have communicated my name and active licensure. The patient's identity and physical location were verified at the time of this visit. Either the patient or their legal resources representative has been informed of the risks and benefits of -- and alternatives to -- treatment through a remote evaluation and consents to proceed with the evaluation remotely. Persons Present: patient Chief Complaint/Reason: post-op HPI: Ashley Ledesma is a 63 year old male with history of left renal mass discovered incidentally upon gross hematuria work up who presents for post-op evaluation. He is s/p robotic left radical nephrectomy on 01/06/[address] Lindsey. FINAL DIAGNOSIS A. 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 - Surgical margins are negative. - See synoptic template. Hospital course uncomplicated and he was discharged home on 01/09/2024. Interval Hx: Overall, doing well since hospital discharge. Energy levels improving- he is walking outside and on the treadmill. No recent fevers/chills. Improving appetite and tolerating adequate PO intake. Denies constipation. No gross hematuria. Denies abdominal pain. Incisions healing without evidence of infection. No calf pain or swelling. No SOB or CP. Data Reviewed: Most recent labs and imaging results.; surgical pathology Labs: Creatinine Date Value Ref Range Status 01/09/2024 1.70 (H) 0.73 - 1.22 mg/dL Final 01/08/2024 1.77 (H) 0.73 - 1.22 mg/dL Final 01/07/2024 1.66 (H) 0.73 - 1.22 mg/dL Final 01/06/2024 1.50 (H) 0.73 - 1.22 mg/dL Final Imaging: CT CHEST WO IVCON: 01/05/2023 IMPRESSION: No CT evidence of acute abnormality. No findings of metastatic disease in the thorax. NM RENAL FLOW/FXN WO PHARM: 01/05/2023 IMPRESSION: 1. Normal right renal perfusion and function. 2. Enlarged left kidney with preserved function, but delayed drainage. 3. Split renal function: Left- 49%; right- 51% MRI KIDNEY W/WO IVCON: 01/04/2024 IMPRESSION: 12.7 cm left upper pole renal neoplasm with invasion of the renal sinus fat. No vascular involvement. No retroperitoneal lymphadenopathy. No metastatic disease in the visualized upper abdomen. HISTORY REVIEWED (electronic chart updated): No past medical history on file. No past surgical history on file. No family history on file. Social History Tobacco Use Smoking status: Former Types: Cigarettes Smokeless tobacco: Never Tobacco comments: Been over 30 years since had a cigarette Substance Use Topics Alcohol use: Yes Comment: may have a drink 2x per week Drug use: Never Current Outpatient Medications Medication Sig methocarbamol 1,000 mg tablet Take 1 tablet (1,000 mg) by mouth three times a day as needed. vibegron (GEMTESA) 75 mg tablet Take by mouth. allopurinol (ZYLOPRIM) 300 mg tablet 1 tablet Orally Once a day for 90 days sildenafil (VIAGRA) 100 mg tablet take 1 tablet by mouth as directed 1 HOUR PRIOR TO SEXUAL ACTIVITY tiZANidine (ZANAFLEX) 4 mg tablet 2 tablets Orally at bedtime for 15 tamsulosin (FLOMAX) 0.4 mg Take 1 capsule by mouth daily at bedtime. No current facility-administered medications for this visit. ALLERGIES No Known Allergies REVIEW OF SYSTEMS: GENERAL: no fever, energy levels improving RESPIRATORY: no wheezing or shortness of breath CARDIOVASCULAR: no chest pain GI: tolerating PO well and no abdominal pain : no gross hematuria PHYSICAL EXAMINATION: VIDEO EXAM: (if completed, performed via video enabled technology) GENERAL: alert and appropriate, in no distress, well-hydrated, well nourished, and happy, smiling, interactive RESPIRATORY: breathing non-labored CHEST: equal chest rise with normal respiratory effort ASSESSMENT: (C64.2) Renal cell carcinoma of left kidney (HCC) (primary encounter diagnosis) (Z90.5) H/O left nephrectomy (N18.32) Stage 3b chronic kidney disease (HCC) 63 year old male s/p robotic left radical nephrectomy on 01/06/[address] Lindsey. Discussed surgical pathology results and NCCN guidelines for surveillance. Reviewed post-op physical restrictions. Discussed rationale for nephrology consult. PLAN: -Consult nephrology -No lifting >10 lbs for 4 weeks after surgery -Follow up virtual visit in 3 months with MRI abdomen, CT chest, and CMP checked prior to visit Discussed with Dr. Lindsey. There are no Patient Instructions on file for this visit. I spent a total of 30 minutes on the date of the service which included preparing to see the patient, [id number] patient care, c (more content not included)... [facility] 01-14-2024 Miscellaneous Notes PATIENT INFORMATION Record ID: [id number] Patient Name: [facility]: [facility] [place]: [facility] Attending: Charlotte Lindsey Center: Urology INSTRUCTIONS SN to remind patient of appointment date, time, location All Clear All Clear SURVEY INFORMATION Medical/Nurse Math Professor: Chon Avila 1. Your discharge instructions are important in guiding you through the recovery process. Is there anything I could help you clarify on your discharge instructions? (Standard Question) No 2. Do you have a follow up appointment related to your hospital stay scheduled within the next 30 days? (Standard Question) Yes 3. If you have a drain or catheter, have you experienced any difficulties caring for these? (Red Flag Question) No, I have instructions I can follow 4. Have you had any stomach problems such as, constipation, diarrhea, bloating, nausea/vomiting, or pain? (Red Flag Question) No MA/SN Notes: Vomited earlier in week cleared up reached out to doctors office in relation to symptoms. 5. Many patients have concerns about their medications once they are home. Do you have any questions about getting or taking your medications? (Standard Question) No 6. Do you have any new or different symptoms? (Standard Question) Yes, Patient not transferred MA/SN Notes: Vomited earlier in week cleared up reached out to doctors office in relation to symptoms. documented in this encounter [facility] 01-11-2024 Miscellaneous Notes Returned call to Mr. Ledesma. He had an episode of nausea and vomiting last night. He is passing gas and had a very small BM this morning. No SSI. Advised to add miralax once a day and focus on hydrating until things start moving. If he continues to vomit, stops passing gas and his abdomen becomes distended, he is to go to the nearest ER. Patient verbalized understanding. All questions answered. Neela Lundberg RN, BSN Triage Nurse Department of Urology [facility] documented in this encounter [facility] 01-09-2024 Note HNO ID: [id number] Author: JULISA UGALDE MD Service: Urology Author Type: Resident Type: Progress Notes Filed: 01/17/2024 13:19 Note Text: Documentation Query Based on your medical judgment of the clinical indicators outlined below, please clarify the condition: (Please type X next to your response and sign) Date Reported: 01/06/24 Final Diagnosis: A. 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 Surgical margins are negative. Please clarify the significance of the pathology report x I agree with the above pathology report The above pathology report is not clinically significant The above pathology report is indeterminate Other, please specify [facility] 01-09-2024 Note HNO ID: [id number] Author: JULISA UGALDE MD Service: Urology Author Type: Resident Type: Progress Notes Filed: 01/09/2024 08:15 Note Text: [facility] UROLOGY PROGRESS NOTE Name: Ashley Ledesma Bed: Main - Periop OR/Main - * Date: 01/09/2024 After Hours [facility] Urology Service Pager: [phone] ASSESSMENT Ashley Ledesma is a 63 year old male with history of BPH s/p TURP 2014, Bladder cancer s/p TURBT 2015 on surveillance, large left renal mass now 3 Days Post-Op s/p Lap hand assisted left radical nephrectomy with Dr. Lindsey 01/06 INTERVAL/SUBJECTIVE - Afebrile, SBP 130-150s, HR 80-90s, on RA - Labs in process - Voiding well, ambulating, passing gas, tolerating advanced diet - No CP, SOB, N/V - Only liquid stool following suppository yesterday, minimal PLAN Neuro - Pain controlled w/ PRN meds CV - Monitor vitals Heme - Daily labs Ppx: SQH TID and SCDs for DVT ppx Resp - Encouraged IS, deep breathing sating well ID - Afebrile. Susanne-op Abx Ancef GI - Colace, supp as needed. Continue GIS /Renal: Monitor UOP, voiding ad alex Dispo/Teaching - Anticipate D/C later today pending labs To be discussed with attending physician Dr César Ugalde MD Urology PGY3 [facility] pager: [phone] On weekends and after 5PM, please page [phone] Active Problems BPH, POA- s/p TURP 2014, on Flomax an Bladder tumor, s/p TURBT 2014, on surveillance Left renal mass, POA, S/p L Radical Nx 01/06 Objective Vital Signs BP 145/86 Pulse 92 Temp 36.4 ?C (97.5 ?F) Resp 16 Ht 177.8 cm (5' 10 ) Wt 85.5 kg (188 lb 7.9 oz) SpO2 92% BMI 27.05 kg/m? Body mass index is 27.05 kg/m?. Input and Output Intake/Output Summary (Last 24 hours) at 01/09/2024 0815 Last data filed at 01/08/2024 1800 Gross per 24 hour Intake 480 ml Output 2075 ml Net -1595 ml Physical Exam General: Well-appearing, no acute distress Abdomen: Soft Wound: Incision clean, dry, and intact : deferred Recent Labs 01/08/24 1059 01/07/24 0315 01/06/24 1902 WBC 9.00 13.76* 14.32* HB 11.0* 12.2* 12.0* HCT 34.2* 37.1* 37.4* PLT 147* 164 181 NA 139 142 141 K 4.2 5.0 4.2 CHLOR 98 105 107* CO2 32* 27 23 BUN 20 20 22 CREAT 1.77* 1.66* 1.50* GLUC 130* 132* 151* Imaging Reviewed [facility] 01-08-2024 Note HNO ID: [id number] Author: JULISA UGALDE MD Service: Urology Author Type: Resident Type: Progress Notes Filed: 01/08/2024 10:24 Note Text: [facility] UROLOGY PROGRESS NOTE Name: Ashley Ledesma Bed: Main - Periop OR/Main - * Date: 01/08/2024 After Hours [facility] Urology Service Pager: [phone] ASSESSMENT Ashley Ledesma is a 63 year old male with history of BPH s/p TURP 2014, Bladder cancer s/p TURBT 2014 on surveillance, large left renal mass now 2 Days Post-Op s/p Lap hand assisted left radical nephrectomy with Dr. Lindsey 01/06 INTERVAL/SUBJECTIVE - Afebrile, SBP 140-150s, HR 80s, on RA - Labs not yet drawn this AM - De-escalated to clears yesterday for belching - Zuniga removed yesterday, voiding well with one PVR around 150 following 400cc void - Feeling well. Passing gas, no BM. Hiccups resolved, still some burping. Pain controlled. Voiding well. PLAN Neuro - Pain controlled w/ PRN meds CV - Monitor vitals Heme - Daily labs Ppx: SQH TID and SCDs for DVT ppx Resp - Encouraged IS, deep breathing sating well ID - Follow CBC, has had slight WBC. Afebrile. Susanne-op Abx Ancef GI - Colace, supp as needed. Advance to GIS. Give suppository this AM. /Renal: Monitor UOP, voiding ad alex Dispo/Teaching - Anticipate D/C later today pending labs, tolerating diet To be discussed with attending physician Dr César Ugalde MD Urology PGY3 [facility] pager: [phone] On weekends and after 5PM, please page [phone] Active Problems BPH, POA- s/p TURP 2014, on Flomax an Bladder tumor, s/p TURBT 2014, on surveillance Left renal mass, POA, S/p L Radical Nx 01/06 Objective Vital Signs BP 155/81 Pulse 84 Temp 37 ?C (98.6 ?F) (Oral) Resp 18 Ht 177.8 cm (5' 10 ) Wt 85.5 kg (188 lb 7.9 oz) SpO2 92% BMI 27.05 kg/m? Body mass index is 27.05 kg/m?. Input and Output Intake/Output Summary (Last 24 hours) at 01/08/2024 0715 Last data filed at 01/08/2024 0532 Gross per 24 hour Intake 1109 ml Output 3040 ml Net -1931 ml Physical Exam General: Well-appearing, no acute distress Abdomen: Soft Wound: Incision clean, dry, and intact : deferred Recent Labs 01/07/24 0315 01/06/24 1902 WBC 13.76* 14.32* HB 12.2* 12.0* HCT 37.1* 37.4* PLT 164 181 NA 142 141 K 5.0 4.2 CHLOR 105 107* CO2 27 23 BUN 20 22 CREAT 1.66* 1.50* GLUC 132* 151* Imaging Reviewed [facility] 01-07-2024 Note HNO ID: [id number] Author: RAQUEL ROBERTSON MD Service: Urology Author Type: Resident Type: Progress Notes Filed: 01/07/2024 11:16 Note Text: [facility] UROLOGY PROGRESS NOTE Name: Ashley Ledesma Bed: Main - Periop OR/Main - * Date: 01/07/2024 After Hours [facility] Urology Service Pager: [phone] ASSESSMENT Ashley Ledesma is a 63 year old male with history of BPH s/p TURP 2015, Bladder cancer s/p TURBT 2015 on surveillance, large left renal mass now 1 Day Post-Op s/p Lap hand assisted left radical nephrectomy with Dr. Lindsey 01/06 INTERVAL/SUBJECTIVE -Doing well overall - Has some incisional pain, controlled with meds - Denies chest pain or SOB -Vital signs within normal limits, afebrile -Hgb 12.2 (12) -Cr 1.66 (1.50) -Pain: Controlled -N/V: No - Zuniga draining CYU - passing gas, no BM PLAN Neuro - Pain controlled w/ PRN meds CV - Monitor vitals Heme - Daily labs Ppx: SQH TID and SCDs for DVT ppx Resp - Encouraged IS, deep breathing sating well ID - No leukocytosis. Afebrile. Susanne-op Abx Ancef GI - Colace, supp as needed. Advanced to GIS /Renal: Monitor UOP, TOV this AM Dispo/Teaching - Pending recovery Discussed with attending physician MD Raquel Bryant MD Urology PGY2 [facility] For weekend or after hours issues [place] [phone] Active Problems BPH, POA- s/p TURP 2014, on Flomax an Bladder tumor, s/p TURBT 2014, on surveillance Left renal mass, POA, S/p L Radical Nx 01/06 Objective Vital Signs BP 144/89 Pulse 78 Temp 36.5 ?C (97.7 ?F) Resp 16 SpO2 98% There is no height or weight on file to calculate BMI. Input and Output Intake/Output Summary (Last 24 hours) at 01/07/2024 1112 Last data filed at 01/07/2024 1015 Gross per 24 hour Intake 3500 ml Output 2920 ml Net 580 ml Physical Exam General: Well-appearing, no acute distress Abdomen: Soft Wound: Incision clean, dry, and intact : Zuniga catheter present with CYU Recent Labs 01/07/24 0315 01/06/24 1902 WBC 13.76* 14.32* HB 12.2* 12.0* HCT 37.1* 37.4* PLT 164 181 NA 142 141 K 5.0 4.2 CHLOR 105 107* CO2 27 23 BUN 20 22 CREAT 1.66* 1.50* GLUC 132* 151* Imaging Reviewed [facility] 01-06-2024 Note HNO ID: [id number] Author: CORNELIA BAÑUELOS SRNA Service: ? Author Type: Student Type: Anesthesia Procedure Notes Filed: 01/06/2024 15:11 Note Text: ANESTHESIOLOGY PROCEDURE NOTE PIV General Information Procedure Start Time/Medication Administration: 01/06/2024 2:50 PM Patient Location: OR Staffing SRNA: Cornelia Bañuelos SRNA Performed by: PERI Preparation Sterility Preparation: hand hygiene performed prior to procedure, surgical cap used, mask used Site Prep: alcohol Procedure Details Indication: need for IV access Needle Size/Type: 16 gauge angiocath Orientation: Left Location: Hand Imaging Guidance Used: No SIGNATURE: PERI Banerjee PATIENT NAME: Ashley Ledesma DATE: January 06, 2024 TIME: 3:11 PM CSN: [id number] [facility] 01-06-2024 Note HNO ID: [id number] Author: CORNELIA BAÑUELOS SRNA Service: ? Author Type: Student Type: Anesthesia Procedure Notes Filed: 01/06/2024 15:11 Note Text: ANESTHESIOLOGY PROCEDURE NOTE Airway General Information Procedure Start Time/Medication Administration: 01/06/2024 2:36 PM Patient location during procedure: OR Timeout Performed Pre-procedure: timeout performed Consent Obtained: Yes Patient identity confirmed: arm band, care customer care team coach and patient Staffing SRNA: Cornelia Bañuelos SRNA Performed by: PERI Indications and Patient Condition Indications for airway management: anesthesia Preoxygenated: yes anesthesia circuit Patient position: sniffing Method: asleep Cricoid Pressure: No Manual In-Line Stabilization: No Difficult Mask: No Final Airway Details Final airway type: endotracheal airway Final Endotracheal Airway: ETT Cuffed: yes Successful intubation technique: direct laryngoscopy Devices used: intubating stylet Endotracheal tube insertion site: oral Blade: Sejal Blade size: #4 ETT size (mm): 8.0 Measured from: lips Measurement (cm): 23 Placement verified by: capnometry Cormack-Lehane Classification: grade I - full view of glottis Number of attempts at approach: 1 Failed airway: no Unrecognized esophageal intubation: no Airway not difficult Comments Lips and teeth in pre anesthetic condition SIGNATURE: PERI Banerjee PATIENT NAME: Ashley Ledesma DATE: January 06, 2024 TIME: 3:10 PM CSN: [id number] [facility] 01-06-2024 Note HNO ID: [id number] Author: KISHOR ORDONEZ MD Service: Urology Author Type: Resident Type: Progress Notes Filed: 01/07/2024 00:26 Note Text: [facility] UROLOGY PROGRESS NOTE Name: Ashley Ledesma Bed: Main - Periop OR/Main - * Date: 01/06/2024 After Hours [facility] Service Pager: [phone] ASSESSMENT Ashley Ledesma is a 63 year old male with history of BPH s/p TURP 2015, Bladder cancer s/p TURBT 2015 on surveillance, large left renal mass now Day of Surgery s/p Robotic left radical nephrectomy with Dr. Lindsey 01/06 INTERVAL/SUBJECTIVE -Doing well post op - Denies chest pain or SOB -Vital signs within normal limits, afebrile -Hgb 12 (preop 13.4) -Cr 1.5 (preop 1.35) -Pain: Controlled -N/V: No - Zuniga draining CYU PLAN Neuro - Pain controlled w/ PRN meds CV - Monitor vitals Heme - Daily labs Ppx: SQH TID and SCDs for DVT ppx Resp - Encouraged IS, deep breathing sating well ID - No leukocytosis. Afebrile. Susanne-op Abx Ancef GI - Colace, supp as needed. CLD /Renal: Monitor UOP, maintain Zuniga Dispo/Teaching - Pending recovery Discussed with attending physician MD Raquel Bryant MD Urology PGY2 [facility] For weekend or after hours issues [place] [phone] Active Problems BPH, POA- s/p TURP 2014, on Flomax an Bladder tumor, s/p TURBT 2014, on surveillance Left renal mass, POA, S/p L Radical Nx 01/06 Objective Vital Signs BP 170/84 Pulse 72 Temp 36.6 ?C (97.9 ?F) (Temporal Artery) Resp 16 SpO2 99% There is no height or weight on file to calculate BMI. Input and Output No intake or output data in the 24 hours ending 01/06/24 1232 Physical Exam General: Well-appearing, no acute distress Abdomen: Soft Wound: Incision clean, dry, and intact : Zuniga catheter present with CYU Imaging Reviewed [facility] 01-05-2024 Note HNO ID: [id number] Author: ?, ?, ? Service: Radiology Author Type: ? Type: Progress Notes Filed: 01/05/2024 14:55 Note Text: Radiology Service Progress Note PATIENT NAME: Ashley Ledesma DATE OF SERVICE: January 05, 2024 TIME: 2:52 PM PATIENT IDENTITY VERIFICATION COMPLETED USING TWO (2) IDENTIFIERS: Name and Date of confirmed by patient verbally and Name and Date of confirmed by identification band. FALL SCREENING: Has the patient had 2 falls in the last year or 1 fall with injury or currently using an Ambulatory Assistive Device (Walker, Cane, Wheelchair, Crutches, etc.)? No PATIENT GENDER DATA: Male PATIENT RELEVANT IMPLANT DATA REVIEWED: Yes PATIENT PRESENTS WITH AN IMPLANTABLE OR ATTACHED WATER POLLUTION CONTROL TECHNICIAN: No RADIOLOGY DEPARTMENT: CT; Exam(s) Completed: Chest PERIPHERAL IV DATA: Not applicable SIGNED BY: Carl Amin Ct January 05, 2024 2:52 PM [facility] 01-05-2024 History of Present illness Narrative RADIOLOGY SERVICE PROGRESS NOTE SERVICE DATE: 01/05/2024 SERVICE TIME: 12:59 PM PATIENT IDENTITY VERIFICATION COMPLETED USING TWO (2) STANDARD IDENTIFIERS: Name and Date of confirmed by patient verbally FALL SCREENING: Has the patient had 2 falls in the last year or 1 fall with injury or currently using an Ambulatory Assistive Device (Walker, Cane, Wheelchair, Crutches, etc.)? No PATIENT GENDER DATA: .male ALLERGIES: Reviewed and unchanged MEDICATIONS REVIEWED: Yes PATIENT RELEVANT IMPLANT DATA REVIEWED: Not Applicable PATIENT PRESENTS WITH AN IMPLANTABLE OR ATTACHED WATER POLLUTION CONTROL TECHNICIAN: No CREATININE: Creatinine Date Value Ref Range Status 01/03/2024 1.35 (H) 0.73 - 1.22 mg/dL Final Estimated Glomerular Filtration Rate Date Value Ref Range Status 01/03/2024 59 (L) >=60 mL/min/1.73m Final Comment: Estimated Glomerular Filtration Rate (eGFR) is calculated using the 2020 CKD-EPI creatinine equation. This equation utilizes serum creatinine, sex, and age as parameters. The creatinine assay has traceable calibration to isotope dilution-mass spectrometry. Refer to KDIGO guidelines for clinical interpretation. In patients with unstable renal function, e.g. those with acute kidney injury, the eGFR may not accurately reflect actual GFR. P.O.C.T. RESULTS: N/A January 05, [address] PERFORMED: No IV SITE: Ambulatory: A peripheral IV was started in the Left antecubital site with a Angio cath: 20 gauge. POST EXAM PIV STATUS: Left in for next appointment PROCEDURE TYPE: NM INJECT: Renal Scan without lasix. 11.3 mCi Tc99m MAG-3. No other medications given.. ADMINISTRATION TIME: 1240 PATIENT DISCHARGED TO: Ambulatory patient, left NM department area. A Diagnostic radioactive procedure has taken place, with no further precautions necessary other than routine body substance precautions. More information regarding radiation safety can be found using this link: [email or web address] %[email or web address] SIGNATURE: EUGENE Story) PATIENT NAME: Ashley Ledesma DATE: January 05, 2024 TIME: 12:59 PM PAGER/CONTACT #: documented in this encounter [facility] 01-05-2024 Note HNO ID: [id number] Author: LILIA CURRY RT (R) Service: Nuclear Medicine Author Type: Technologist Type: Progress Notes Filed: 01/05/2024 13:00 Note Text: RADIOLOGY SERVICE PROGRESS NOTE SERVICE DATE: 01/05/2024 SERVICE TIME: 12:59 PM PATIENT IDENTITY VERIFICATION COMPLETED USING TWO (2) STANDARD IDENTIFIERS: Name and Date of confirmed by patient verbally FALL SCREENING: Has the patient had 2 falls in the last year or 1 fall with injury or currently using an Ambulatory Assistive Device (Walker, Cane, Wheelchair, Crutches, etc.)? No PATIENT GENDER DATA: .male ALLERGIES: Reviewed and unchanged MEDICATIONS REVIEWED: Yes PATIENT RELEVANT IMPLANT DATA REVIEWED: Not Applicable PATIENT PRESENTS WITH AN IMPLANTABLE OR ATTACHED WATER POLLUTION CONTROL TECHNICIAN: No CREATININE: Creatinine Date Value Ref Range Status 01/03/2024 1.35 (H) 0.73 - 1.22 mg/dL Final Estimated Glomerular Filtration Rate Date Value Ref Range Status 01/03/2024 59 (L) >=60 mL/min/1.73m? Final Comment: Estimated Glomerular Filtration Rate (eGFR) is calculated using the 2020 CKD-EPI creatinine equation. This equation utilizes serum creatinine, sex, and age as parameters. The creatinine assay has traceable calibration to isotope dilution-mass spectrometry. Refer to KDIGO guidelines for clinical interpretation. In patients with unstable renal function, e.g. those with acute kidney injury, the eGFR may not accurately reflect actual GFR. P.O.C.T. RESULTS: N/A January 05, [address] PERFORMED: No IV SITE: Ambulatory: A peripheral IV was started in the Left antecubital site with a Angio cath: 20 gauge. POST EXAM PIV STATUS: Left in for next appointment PROCEDURE TYPE: NM INJECT: Renal Scan without lasix. 11.3 mCi Tc99m MAG-3. No other medications given.. ADMINISTRATION TIME: 1240 PATIENT DISCHARGED TO: Ambulatory patient, left NM department area. A Diagnostic radioactive procedure has taken place, with no further precautions necessary other than routine body substance precautions. More information regarding radiation safety can be found using this link: [email or web address] 20Diagnostic%20Nuclear%20Medicine% 20Procedures.pdf SIGNATURE: RT Porsha(R) PATIENT NAME: Ashley Ledesma DATE: January 05, 2024 TIME: 12:59 PM PAGER/CONTACT #: [facility] 01-05-2024 Note HNO ID: [id number] Author: ANAI LEMA MD Service: ? Author Type: Anesthesiologist Type: Progress Notes Filed: 01/05/2024 12:40 Note Text: Attending Note I evaluated the patient and personally participated in the julien components. I agree with the resident's findings and plan as documented and have discussed the case and management of the patient's care with the resident. Signature: Anai Lema MD Date: 01/05/2024 Time: 12:40 PM [facility] 01-05-2024 History of Present illness Narrative Attending Note I evaluated the patient and personally participated in the julien components. I agree with the resident's findings and plan as documented and have discussed the case and management of the patient's care with the resident. Signature: Anai Lema MD Date: 01/05/2024 Time: 12:40 PM documented in this encounter [facility] 01-05-2024 Instructions Leyda Parker DO - 01/05/2024 11:43 AM EST PATIENT PREOPERATIVE INSTRUCTIONS Charlotte Lindsey MD has scheduled you for your procedure at this surgery center: [facility] Scheduling Office: [phone] --[address] [place] [address]. Please read below carefully for your personalized instructions. Dietary Restrictions: - No solid food after midnight. - You may have 12 ounces of clear liquids (water, clear juices such as apple juice or gatorade, carbonated beverages, clear tea, black coffee, jello) until 2 hours before scheduled arrival at facility. Medications: Unless instructed differently below, stay on all of your medications until your surgery. If you start any new medications after today's visit, please contact your surgeon. Pre-Surgery Med Instructions Medication Instructions vibegron (GEMTESA) 75 mg tablet Take as prescribed allopurinol (ZYLOPRIM) 300 mg tablet Take as prescribed If you take any medications for erectile dysfunction-Cialis (Tadalafil), Levitra, Staxyn (Vardenafil) Viagra (Sildenenafil please do not take these for 48 hours before surgery. If you start any new medications after today's visit, please contact the surgeon's office. Blood Thinning Medications: - Stop NSAIDS (Ibuprofen, Advil, Aleve, Motrin, Celebrex, Mobic, etc.) 7 days before surgery, as directed by your surgeon. - Stop Aspirin 7 days before surgery, as directed by your surgeon. - Stop Vitamin E, ALL multi-vitamins, herbals and dietary supplements 7 days before surgery. Important Reminders: - If you use CPAP/BIPAP, bring the machine with you to the surgery center. - Candy, mints, and tobacco products are NOT permitted the morning of surgery. - Hearing aids, dentures and glasses may be worn the morning of surgery. - NO jewelry, body piercings, makeup, hairpins or contacts are to be worn the day of surgery. If you develop symptoms such as a fever, cold, or flu, or have other changes to your health within TWO DAYS of scheduled surgery or the morning of surgery, please contact the surgery center above. Personal Belongings: -Please have photo ID and insurance cards. -If you do not have a copy of advance directives on file with us, please bring a copy with you on the day of surgery. - Leave ALL valuables and money at home or with family members. Arrival Time for Surgery: - To obtain your arrival time for surgery, call your physician's office the day before your surgery. - If your surgery is scheduled for Wednesday, call the Wednesday before. Your surgeon s documentation consultant will tell you what time to call the office. - If you have not reached the departmental documentation consultant by 5 P.M., call [phone] after 5 P.M. the day before your surgery. Please be aware that emergency situations arise, which may delay or change your surgical time. If this happens, we will notify you as soon as possible and regret any inconvenience. If you already have an Advance Directive, please fax a copy to [phone] or email to for it to be added to your chart. If you do not have an Advance Directive, you can find the appropriate form and more information at [email or web address]. We recommend that you complete the Advance Directive form found on the website and bring it with you the day of your surgery. It can be witnessed and scanned into your chart that day. Leyda Parker DO documented in this encounter [facility] 01-05-2024 History and physical note HISTORY AND PHYSICAL EXAMINATION SERVICE DATE: 01/05/2024 SERVICE TIME: 11:19 AM PRIMARY CARE PHYSICIAN: Adan Lamar MD REASON FOR VISIT: Ashley Ledesma is a 63 year old male who is scheduled for ROBOTIC LAPAROSCOPIC NEPHRECTOMY RADICAL at the request of Dr. Charlotte Lindsey for consultation. My final recommendation will be communicated back to the requesting physician by way of shared medical record or letter. The patient has the following: ACTIVE PROBLEM LIST Ulcer of Esophagus Gout Erectile Dysfunction Benign Prostatic Hyperplasia With Urinary Obstruction Subjective CHIEF COMPLAINT: Pre-operative examination HPI: Ashley Ledesma is a 63 year old male with renal mass who presents to [facility] today for preop exam. Patient is scheduled for the above procedure on 01/06/24 Denies fevers, chills, chest pain, and SOB. No past medical history on file. No past surgical history on file. No family history on file. SOCIAL HISTORY: Social History Tobacco Use Smoking status: Former Types: Cigarettes Smokeless tobacco: Never Tobacco comments: Been over 30 years since had a cigarette Substance Use Topics Alcohol use: Yes Comment: may have a drink 2x per week Drug use: Never MEDICATIONS: Prior to Admission medications as of 01/05/24 1121 Medication Sig Last Dose Taking vibegron (GEMTESA) 75 mg tablet Take by mouth. Taking Yes allopurinol (ZYLOPRIM) 300 mg tablet 1 tablet Orally Once a day for 90 days Taking Yes sildenafil (VIAGRA) 100 mg tablet take 1 tablet by mouth as directed 1 HOUR PRIOR TO SEXUAL ACTIVITY tiZANidine (ZANAFLEX) 4 mg tablet 2 tablets Orally at bedtime for 15 tamsulosin (FLOMAX) 0.4 mg Take 1 capsule by mouth daily at bedtime. No medication comments found. CURRENT ALLERGIES: ALLERGIES No Known Allergies COVID VACCINATION STATUS: Fully vaccinated REVIEW OF SYSTEMS: PAIN ASSESSMENT: General: No weight loss, malaise or fevers. Neuro: No history of TIA's, stroke, ELECTRIC DEICER INSPECTOR tumor, impaired sensorium, hemiplegia, paraplegia or quadraplegia. No neurological symptoms or problems. Respiratory: No history of current cough or dyspnea, or pneumonia in the past 6 weeks. No history of respiratory/pulmonary symptoms or problems. Cardiovascular: No history of HTN requiring medication, no history of angina, CHF, OK, cardiac surgery or stents. Denies rest pain, gangrene or revascularization/amputation for PVD. No history of cardiovascular symptoms or problems. GI: No history of GI symptoms or problems. No history of esophageal varices, recent ascites, or ETOH greater than 2 drinks per day. : No history of dysuria, frequency or incontinence,, stones or chronic kidney disease Endocrine: No history of diabetes. Has not taken steroids within the past 30 days. No history of endocrinological symptoms or problems. Hematology: No history of bleeding or clotting disorder. Pt is not taking anti-coagulation or platelet medications. No history of hematological symptoms or problems. Musculoskeletal: R hip arthritis Objective PHYSICAL EXAM: VITALS: BP 145/84 Pulse 69 Temp (Src) 97.4 (Temporal) Ht 5' 10 (1.78m) Wt 188 lb 7.9 oz (85.5kg) SpO2 99% BMI 27.05 kg/(m^2). General: Alert and oriented Skin: Normal color, no rash, no lesions. HEENT: EOM, pupils equal, round Cardiovascular: Normal S1 & S2, no rubs, murmurs or gallops. No JVD. Pulse regular. Lungs: Normal breath sounds, no wheezes or crackles. Abdomen: Soft, non-tender, no rigidity. Extremities: No deformity, no edema or tenderness, no joint swelling or clubbing. Neurological: Normal cognition and motor skills. Diagnostic tests reviewed for today's visit: Lab Value Units Date High Low HB 13.4 g/dL 01/03/2024 17.0 13.0 HCT 42.3 % 01/03/2024 51.0 39.0 WBC 5.60 k/uL 01/03/2024 11.00 3.70 PLT 180 k/uL 01/03/2024 400 150 NA 143 mmol/L 01/03/2024 144 136 K 4.3 mmol/L 01/03/2024 5.1 3.7 GLUC 105 mg/dL 01/03/2024 99 74 BUN 22 mg/dL 01/03/2024 24 9 CREAT 1.35 mg/dL 01/03/2024 1.22 0.73 PTSEC 10.9 sec 01/03/2024 13.0 9.7 INR 1.0 no uni* 01/03/2024 1.3 0.9 APTT 27.9 sec 01/03/2024 32.4 23.0 ALT 11 U/L 01/03/2024 54 10 AST 24 U/L 01/03/2024 40 14 TBILI 0.8 mg/dL 01/03/2024 1.3 0.2 TSH No results within date range. Lab Value Units Date High Low HCGQT No results within date range. UHCG No results within date range. HCG, BODY* No results within date range. Lab Value Units Date High Low ABORHD No results within date range. ABSCREEN No results within date range. No results found for: HBA1C Most recent labs Assessment/Plan Gout Takes allopurinol Last flare 6 months ago Feels gout well-controlled on Rx Ulcer of esophagus Per patient, he was found to have an esophageal ulcer during a scope for a retained foreign body. He has since been reevaluated and was told that the ulcer has resolved. There is history of Erectile Dysfunction Due To Type 2 Diabetes Mellitus in outside problem list. However, patient would like to note that he has never been told he has a diagnosis of type 2 diabetes, he has never been treated for type 2 diabetes, and has never been followed for it. METS: Climb a flight of stairs or walk up a hill (5.50 METs) ANESTHESIA FINDINGS: Intubation History: No airway history in chart. Significant Anesthesia Considerations: None Airway Exam: General: Normal appearance Mallampati Score is CLASS I ULBT: Class I - Lower incisors can bite the upper lip above the lyndon line Neck: Normal appearance and function, Distance from hyoid to mentum during neck extension is at least 3 finger breaths Mouth: Normal tongue size Dentition: Intact Airway History: No airway history in chart 12/31/2023 Sleep Apnea Probability Snores loudly: No Tired, fatigued or sleepy in daytime: No Stops breathing or choking/gasping during sleep: No High blood pressure: No Sleep Apnea Probability Score: 12 (Sleep study not recommended) PLAN This patient is optimally prepared for surgery. CONSULTS: Patient does not require consults for optimization at this time. The Following Tests/Procedures Have Been Initiated: Orders Placed This Encounter vibegron (GEMTESA) 75 mg tablet Sig: Take by mouth. Planned Anesthetic: Per anesthesia choice Instructions Given to Patient: Instructions located in the after visit summary. Patient given verbal and written preop instructions and voices comprehension and compliance. Case and plan of care discussed with Dr. Lema. SIGNATURE: Leyda Parker DO PATIENT NAME: Ashley Ledesma DATE: January 05, 2024 TIME: 12:06 PM documented in this encounter [facility] 01-04-2024 Note HNO ID: [id number] Author: THIAGO PRATHER cpas Service: Radiology Author Type: Puncher Type: Progress Notes Filed: 01/04/2024 10:12 Note Text: Radiology Service Progress Note PATIENT NAME: Ashley Ledesma DATE OF SERVICE: January 04, 2024 TIME: 10:11 AM PATIENT IDENTITY VERIFICATION COMPLETED USING TWO (2) IDENTIFIERS: Name and Date of confirmed by patient verbally and Name and Date of confirmed by identification band FALL SCREENING: Has the patient had 2 falls in the last year or 1 fall with injury or currently using an Ambulatory Assistive Device (Walker, Cane, Wheelchair, Crutches, etc.)? No PATIENT GENDER DATA: Male PATIENT RELEVANT IMPLANT DATA REVIEWED: Yes PATIENT PRESENTS WITH AN IMPLANTABLE OR ATTACHED WATER POLLUTION CONTROL TECHNICIAN: No RADIOLOGY DEPARTMENT: MR; Exam(s) Completed: Body: Renal PERIPHERAL IV DATA: Site assessment: Clean,Dry and Intact, Site disposition Discontinued SIGNED BY: Thiago Prather cpas January 04, 2024 10:11 AM [facility] 01-04-2024 Note HNO ID: [id number] Author: ELEANOR JONES RN Service: Nursing Author Type: Registered Nurse Type: Progress Notes Filed: 01/04/2024 08:56 Note Text: Radiology Service Progress Note DATE OF SERVICE: January 04, 2024 TIME: 8:49 AM PATIENT WEIGHT: 185 LBS PATIENT IDENTITY VERIFICATION COMPLETED USING TWO (2) STANDARD IDENTIFIERS: Name and Date of confirmed by patient verbally. FALL SCREENING: Has the patient had 2 falls in the last year or 1 fall with injury or currently using an Ambulatory Assistive Device (Walker, Cane, Wheelchair, Crutches, etc.)? No PATIENT GENDER DATA: Male ALLERGIES: Reviewed and unchanged CONTRAST ALLERGY: No EXAM: MRI - CONTRAST TYPE: GROUP II IV SITE: Ambulatory: A peripheral IV was started in the Left upper extremity with a Angio cath: 22 gauge. and A Saline lock was inserted per protocol IV SITE APPEARANCE: Clean,Dry and Intact SIGNATURE: Eleanor Jones RN PATIENT NAME: Ashley Ledesma DATE: January 04, 2024 TIME: 8:49 AM [facility] 12-21-2023 History of Present illness Narrative Referring Provider: Self Chief Complaint: renal mass HPI Ashley Ledesma is a 63 year old male with a history of elevated PSA, BPH, and bladder cancer who presents for renal mass evaluation. 12/14/2023 CT A/P showed 15.0 cm renal mass on left Kidney. Mild hydronephrosis and perinephric fat stranding also present on left kidney. Pt also with hx of elevated PSA with PSAs around 3.5 ng/mL. His most recent PSA was 3.42ng/mL (07/08/23), previous was 3.54 ng/mL (06/11/2022). S/p neg TRUS/bx 07/2019. For bladder cancer, he is s/p TURBT in 2014 and has been undergoing surveillance cysto's which have been negative. Most recent cysto 11/10/22 negative, moderate trabeculation and most recent FISH/cytol 11/10/22 negative. PMH: BPH s/p TURP (2014), bladder cancer s/p TURBT (2014), gross hematuria, elevated PSA, sleep apnea, ED, T2DM, esophageal ulcer PSH: no abdominal surgeries Meds: ASA81, Sildenafil, Tamsulosin Interval Hx: Follows with Dr. Davey Jara for his urologic history. CT A/P was done for gross hematuria work-up. He had cystoscopy which was negative. He has not had chest imaging. Patient is asymptomatic at this time other than intermittent hematuria. He endorses some lower right abdominal discomfort. No family history of kidney cancer. No reported history of kidney issues. 1-Duration: 2023 2-Location: kidney 3-Severity: see pathology 4-Quality: Not applicable 5-Context: Imaging 6-Timing: N/A 7-Modifying factors: No treatment prior to referral 8-Associated signs & symptoms: no additional symptoms Family History of Genitourinary Cancer: No LABS 07/10/21 - 3.52 06/11/22 - 3.54 07/08/23 - 3.42 No results found for: CREAT No results found for: PSA IMAGING CT ABD/PEL: 12/14/2023 IMPRESSION: 1. Large mass in the interpolar region of the left kidney, concerning for a large renal cell carcinoma. 2. Mild hydronephrosis in the upper pole the left kidney due to mass effect. 3. Perinephric fat stranding present about the left kidney, which may be due to edema or reactive changes. 4. No lymphadenopathy identified. 5. Prostatomegaly. 6. Moderate stool burden. REVIEW OF SYSTEMS: GENERAL: Negative for fevers, chills, or night sweats. HEENT: Negative for sudden vision or hearing changes. RESPIRATORY: Negative for cough or shortness of breath. CARDIAC: Negative for chest pain, palpitations, murmurs, or syncopal episodes. GASTROINTESTINAL: Negative for diarrhea, constipation, abdominal pain and poor appetite. GENITOURINARY: See HPI. MUSCULOSKELETAL: Negative Bone Aches/pain NEUROLOGIC: Negative for dizziness, headache, weakness or numbness. HEMATOLOGIC: Negative for bleeding or easy bruising. SKIN: Negative for rashes or other skin changes. No past medical history on file. No family history on file. PHYSICAL EXAMINATION General appearance: Well appearing, alert, in no acute distress, and well-hydrated, well nourished Back: no pain to palpation over spine or costovertebral angles, motor and sensory appear to be normal Lungs: Breathing comfortably on room air Heart: deferred Abdomen: soft, non-tender, non-distended. No scars. Palpable mass with deep palpation of left abdomen/flank Extremities: Extremities normal. No deformities, edema, or skin discoloration. Musculoskeletal: No joint swelling, deformity, or tenderness Genitourinary: deferred Assessment 63 y/o M w/ history of BPH and bladder mass (patient reports biopsy was negative) with gross hematuria and CT demonstrating 15cm left renal mass with no lymphadenopathy or evidence of metastatic disease Plan -Imaging reviewed with the patient. Discussed that this is very likely kidney cancer and I recommend robotic left radical nephrectomy. Discussed risks of surgery including but not limited to bleeding, infection, damage to surrounding organs. Will check CT Chest w/o IV contrast for completion of metastatic work-up as well as MRI of the kidney to evaluate for any renal vein or IVC involvement. Discussed that he could require adjuvant therapy after surgery but this would be dependent on pathology report. Discussed possible conversion to open Schedule robotic left nephrectomy on 01/06/2024. Patient will need labs, EKG, PACC, CT Chest w/o IV contrast, renal scan w/o lasix and MRI Kidney w/wo IV Contrast for pre ops prior. Scribe Attestation: By signing my name below, ISultana, attest that this documentation has been prepared under the direction and in the presence of Dr. Charlotte Lindsey MD. Electronically signed: Zach Hargrove, December 21, 2023 11:10 AM Charlotte Perez MD, personally performed the services described in this documentation. All medical record entries made by the lizanrdoibe were at my direction and in my presence. I have reviewed the chart and discharge instructions (if applicable) and agree that the record reflects my personal performance and is accurate and complete. Charlotte Lindsey MD documented in this encounter [facility] 12-21-2023 Note HNO ID: [id number] Author: CHARLOTTE LINDSEY MD Service: ? Author Type: Physician Type: Progress Notes Filed: 01/30/2024 03:01 Note Text: Referring Provider: Self Chief Complaint: renal mass HPI Ashley Ledesma is a 63 year old male with a history of elevated PSA, BPH, and bladder cancer who presents for renal mass evaluation. 12/14/2023 CT A/P showed 15.0 cm renal mass on left Kidney. Mild hydronephrosis and perinephric fat stranding also present on left kidney. Pt also with hx of elevated PSA with PSAs around 3.5 ng/mL. His most recent PSA was 3.42ng/mL (07/08/23), previous was 3.54 ng/mL (06/11/2022). S/p neg TRUS/bx 07/2019. For bladder cancer, he is s/p TURBT in 2014 and has been undergoing surveillance cysto's which have been negative. Most recent cysto 11/10/22 negative, moderate trabeculation and most recent FISH/cytol 11/10/22 negative. PMH: BPH s/p TURP (2014), bladder cancer s/p TURBT (2014), gross hematuria, elevated PSA, sleep apnea, ED, T2DM, esophageal ulcer PSH: no abdominal surgeries Meds: ASA81, Sildenafil, Tamsulosin Interval Hx: Follows with Dr. Davey Jara for his urologic history. CT A/P was done for gross hematuria work-up. He had cystoscopy which was negative. He has not had chest imaging. Patient is asymptomatic at this time other than intermittent hematuria. He endorses some lower right abdominal discomfort. No family history of kidney cancer. No reported history of kidney issues. 1-Duration: 2023 2-Location: kidney 3-Severity: see pathology 4-Quality: Not applicable 5-Context: Imaging 6-Timing: N/A 7-Modifying factors: No treatment prior to referral 8-Associated signs AND symptoms: no additional symptoms Family History of Genitourinary Cancer: No LABS 07/10/21 - 3.52 06/11/22 - 3.54 07/08/23 - 3.42 No results found for: CREAT No results found for: PSA IMAGING CT ABD/PEL: 12/14/2023 IMPRESSION: 1. Large mass in the interpolar region of the left kidney, concerning for a large renal cell carcinoma. 2. Mild hydronephrosis in the upper pole the left kidney due to mass effect. 3. Perinephric fat stranding present about the left kidney, which may be due to edema or reactive changes. 4. No lymphadenopathy identified. 5. Prostatomegaly. 6. Moderate stool burden. REVIEW OF SYSTEMS: GENERAL: Negative for fevers, chills, or night sweats. HEENT: Negative for sudden vision or hearing changes. RESPIRATORY: Negative for cough or shortness of breath. CARDIAC: Negative for chest pain, palpitations, murmurs, or syncopal episodes. GASTROINTESTINAL: Negative for diarrhea, constipation, abdominal pain and poor appetite. GENITOURINARY: See HPI. MUSCULOSKELETAL: Negative Bone Aches/pain NEUROLOGIC: Negative for dizziness, headache, weakness or numbness. HEMATOLOGIC: Negative for bleeding or easy bruising. SKIN: Negative for rashes or other skin changes. No past medical history on file. No family history on file. PHYSICAL EXAMINATION General appearance: Well appearing, alert, in no acute distress, and well-hydrated, well nourished Back: no pain to palpation over spine or costovertebral angles, motor and sensory appear to be normal Lungs: Breathing comfortably on room air Heart: deferred Abdomen: soft, non-tender, non-distended. No scars. Palpable mass with deep palpation of left abdomen/flank Extremities: Extremities normal. No deformities, edema, or skin discoloration. Musculoskeletal: No joint swelling, deformity, or tenderness Genitourinary: deferred Assessment 63 y/o M w/ history of BPH and bladder mass (patient reports biopsy was negative) with gross hematuria and CT demonstrating 15cm left renal mass with no lymphadenopathy or evidence of metastatic disease Plan -Imaging reviewed with the patient. Discussed that this is very likely kidney cancer and I recommend robotic left radical nephrectomy. Discussed risks of surgery including but not limited to bleeding, infection, damage to surrounding organs. Will check CT Chest w/o IV contrast for completion of metastatic work-up as well as MRI of the kidney to evaluate for any renal vein or IVC involvement. Discussed that he could require adjuvant therapy after surgery but this would be dependent on pathology report. Discussed possible conversion to open Schedule robotic left nephrectomy on 01/06/2024. Patient will need labs, EKG, PACC, CT Chest w/o IV contrast, renal scan w/o lasix and MRI Kidney w/wo IV Contrast for pre ops prior. Scribe Attestation: By signing my name below, I, Sultana Arevalo, attest that this documentation has been prepared under the direction and in the presence of Dr. Charlotte Lindsey MD. Electronically signed: Zach Hargrove, December 21, 2023 11:10 AM I, Charlotte Lindsey MD, personally performed the services described in this documentation. All medical record entries made by the scribe were at my direction and in my presence. I have rev (more content not included)... [facility] 12-21-2023 Note Patient Outreach (UR OLMN) ASHLEY LEDESMA ([id number]) 1960 M Date Time Provider Department 12/21/23 CHARLOTTE LINDSEY During your visit today, we recorded the following information about you: Allergies As of Date: 12/21/2023 (Not on File) Date Reviewed: Never Reviewed Visit Diagnosis:Screening for genitourinary condition [Z13.89] Order(s):URINALYSIS, REFLEX MICROSCOPIC [ZNL7849] Order #: [id number]. #:[id number] Prescriptions as of 12/24/2023 - allopurinol (ZYLOPRIM) 300 mg tablet 1 tablet Orally Once a day for 90 days - sildenafil (VIAGRA) 100 mg tablet take 1 tablet by mouth as directed 1 HOUR PRIOR TO SEXUAL ACTIVITY - tiZANidine (ZANAFLEX) 4 mg tablet 2 tablets Orally at bedtime for 15 - tamsulosin (FLOMAX) 0.4 mg Take 1 capsule by mouth daily at bedtime. Problem List As Of Date: 12/21/2023 (None) Encounter Status:Closed by MANJINDER, PRODUSER on 12/24/23 [facility] 11-30-2023 Hospital Discharge instructions Patient Education 11/30/2023 [...] urethra. Follow these instructions at home: Take xged-jxw-kdldlim and prescription medicines only as told by [...] provider. Document Revised: 06/03/2022 Document Reviewed: 06/03/2022 [employer] Patient Education 2022 [employer]. Follow Up Care 11/23/2023 16:14:09 With:ESTEFANI WILLIAMSON, Davey Hoover, URL Address: [facility] [address] , [place] [address]- When: Unknown Comments:Appt scheduled for 09/29/24 [facility] Zhao 09-24-2023 Hospital Discharge instructions Patient Education 09/24/2023 [...] treatment? Where to find more information [employer]: www.cancer.org [employer]: www.auanet.org Contact a health care [...] provider. Document Revised: 05/11/2022 Document Reviewed: 05/11/2022 ElseVol[employer] Patient Education 2022 [employer]. Follow Up Care 09/28/2022 15:56:00 With:ESTEFANI WILLIAMSON, Davey Hoover, URL Address: [address] [place] [address] [place] [address]- When: Unknown [facility] 07-12-2023 Hospital Discharge instructions Patient Education 07/12/2023 [...] including vitamins, herbs, eye drops, creams, and xfkl-ink-zsuufqa medicines. Any problems you or family members [...] provider tells you to take them. Taking iprv-fhc-baphtfv medicines, vitamins, herbs, and supplements. General instructions [...] provider. Document Revised: 11/09/2022 Document Reviewed: 07/08/2022 [employer] Patient Education 2022 [employer]. Follow Up Care 07/06/2023 13:47:03 With:Garima Eastman CNP Address: When:1 to 2 weeks Comments:Following colonoscopy. [facility] 07-12-2023 Note Radiology Colonoscopy, [...] including vitamins, herbs, eye drops, creams, and wdkb-lvp-qmjsbye medicines. ? Any problems you or family [...] tells you to take them. ? Taking klng-okt-gwjsmkq medicines, vitamins, herbs, and supplements. General instructions [...] for cancer cells. (more content not included)... [facility] 06-21-2023 Note [id number]:[id number] [facility] 02-18-2023 Hospital Discharge instructions Patient Education 02/18/2023 16:09:24 Endoscopy, Care After Procedure [facility] Endoscopy Care After Procedure Please read the [...] blood. Document Released: 06/29/2005 Document Re-Released: 05/09/2007 [facility] Patient Information 2010 datango. 02/18/2023 16:09:24 Swallowed Foreign Body, Adult, Lbce-aq-Iyeu Swallowed Foreign Body, Adult A swallowed foreign [...] yourself after the procedure. General instructions Take ziqn-eyn-yddprij and prescription medicines only as told by [...] 03/01/2012 Document Revised: 09/28/2019 Document Reviewed: 09/28/2019 [employer] Patient Education 2019 [employer]. Follow Up Care 02/18/2023 13:49:24 With:Rafael Powell Address:Unknown When:1 to 2 weeks Comments:Call for any problems. Office will call with biopsy results [facility] 02-18-2023 Evaluation + Plan note Extrac humberto [...] m2 Pathology Tissue Exam Addendum by Rafael Poewll MD on February 18, 2023 15:48:38 EDT The patient may go home after 4 hours of observation, stable vital signs and p.o. challenge with water Extracted from: Title:ED Note Author:Kenji Avalos M.D. te:02/18/23 1. Swallowed foreign body (T 18.9XXA: Foreign body of alimentary tract, part unspecified, initial encounter) Orders: XR Abdomen 1 View XR Chest 2 Views Future Appointments Appointment Date:09/27/2023 01:45:00 PM Scheduled Provider:Davey JARA MD Location:[facility] Future Appointments Appointment Date:06/18/2023 01:45:00 PM Scheduled Provider: Location:[facility] Appointment Type:Surgery FT Appointment Date:09/27/2023 01:45:00 PM Scheduled Provider:Davey JARA MD Location:[facility] Appointment Type:URO Office Visit [facility] Evaluation + Plan note Future Appointments Appointment Date:09/24/2023 08:15:00 AM Scheduled Provider:Davey JARA MD Location:[facility] Appointment Type:URO Office Visit [facility] Evaluation + Plan note Future Appointments Appointment Date:09/29/2024 08:00:00 AM Scheduled Provider:Davey JARA MD Location:[facility] Appointment Type:URO Office Visit Diagnostic Tests Pending * PSA Total 07/30/24 [facility] evaluation + Plan note Future Appointments Appointment Date:09/29/2024 08:00:00 AM Scheduled Provider:Davey JARA MD Location:[facility] Appointment Type:URO Office Visit [facility] Evaluation + Plan note Future Appointments Appointment Date:11/11/2023 02:00:00 PM Scheduled Provider:COLLEEN Giraldo APRN, [place] [facility] Location:[facility] Appointment Type:URO Office Visit Appointment Date:09/29/2024 08:00:00 AM Scheduled Provider:Davey JARA MD [facility] App[facility] Type:URO Office Visit Diagnostic Tests Pending * [facility]rine [facility] Future Appointments Appointment Date:11/30/2023 01:15:00 PM Scheduled Provider:Davey JARA MD Location:[facility] Appointment Type:URO Procedure 15 min Appointment Date:09/29/2024 08:00:00 AM Scheduled Provider:Davey JARA MD Location:[facility] Appointment Type:URO Office Visit [facility] evaluation + Plan note Future Appointments Appointment Date:09/29/2024 08:00:00 AM Scheduled Provider:Davey JARA MD Location:[facility] Appointment Type:URO Office Visit Diagnostic Tests Pending * UroVysion Fish and Urine Cyto ([facility]) 11/30/23 [facility] note* Diagnosis Pre-op evaluation- Primary Preoperative examination, unspecified Renal mass Unspecified disorder of kidney and ureter [facility] of [facility] Diagnosis Renal cell carcinoma of left kidney (HCC)- Primary H/O left nephrectomy Stage 3b chronic kidney disease (HCC) [facility] Diagnosis Renal mass- Primary Unspecified disorder of kidney and ureter Gross hematuria Other specified disorders of kidney and ureter 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) Acquired cyst of kidney [facility] Screening for genitourinary condition Screening for other and unspecified genitourinary condition [facility] H/O left nephrectomy Stage 3b chronic kidney disease (HCC) [facility] Renal cell carcinoma of left kidney (HCC) [facility] [facility] Diagnosis Renal cell carcinoma of left kidney (HCC) [facility] Encounter for follow-up surveillance of kidney cancer- Primary Unspecified follow-up examination History of renal cell cancer H/O left nephrectomy Stage 3a chronic kidney disease (HCC) Pancreatic cyst Cyst and pseudocyst of pancreas [facility] Diagnosis Screening for genitourinary condition Screening for other and unspecified genitourinary condition Stage 3b chronic kidney disease (HCC) H/O left nephrectomy [facility] Diagnosis Stage 3b chronic kidney disease (HCC)- Primary H/O left nephrectomy [facility] N[facility] No data available for this section [facility] No data available for this section [facility] Progress note No data available for this section [facility] Diagnostic Procedure Only (Routine) - Closed Specialty Diagnoses / Procedures Referred By Contac t Referred To Contact MOLECULAR & FUNCTIONAL IMAGING Diagnoses Acquired cyst of kidney Procedures NM RENAL FLOW/FXN WO PHARM KIDNEY IMG MORPHOLOGY VASCULAR FLOW 1 W/O RX Jonny Arnett MD [address] [id number] Molecular & Functional Imaging [address] [id number] Referral ID Status Reason Start Date Expiration Date V isits Requested Visits Authorized [id number] Closed Auto-Generate d Referral 12/21/2023 11/28/2024 1 1 [facility] for referral (narrative)* Diagnostic Procedure Only (Routine) - Closed Specialty Diagnoses / Procedures Referred By Contac t Referred To Contact MOLECULAR & FUNCTIONAL IMAGING Diagnoses Acquired cyst of kidney Procedures NM RENAL FLOW/FXN WO PHARM KIDNEY IMG MORPHOLOGY VASCULAR FLOW 1 W/O RX Jonny Arnett MD [address] [phone] Molecular & Functional Imaging [address] [id number] Referral ID Status Reason Start Date Expiration Date V isits Requested Visits Authorized [id number] Closed Auto-Generate d Referral 12/21/2023 11/28/2024 1 1 * Outpatient Procedure (Routine) - Pending Review Specialty Diagnoses / Procedures Referred By Contac t Referred To Contact [facility] Diagnoses Renal mass Gross hematuria Other specified disorders of kidney and ureter 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) Procedures ECG COMPLETE ECG ROUTINE ECG W/LEAST 12 LDS W/I&R Jonny Arnett MD [address] [place] [address] [facility] [address] [place], [place] [id number] Referral ID Status Reason Start Date Expiration Date Visits Requested Visits Authorized [id number] Pending Review Auto-Generat ed Referral 12/21/2023 12/20/2024 1 1 * MRI/CT (Routine) - Closed Specialty Diagnoses / Procedures Referred By Contac t Referred To Contact CT IMAGING Diagnoses 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) Procedures CT CHEST WO IVCON DIAGNOSTIC COMPUTED TOMOGRAPHY THORAX W/O CNTRST Jonny Arnett MD [phone] [facility] [place] [address] Referral ID Status Reason Start Date Expiration Date V isits Requested Visits Authorized [id number] Closed Auto-Generat ed Referral Patient Cleared - Admin/Chairm an/Director advise to proceed or did not respond 01/05/2024 01/05/2024 1 1 * MRI/CT (Routine) - Closed Specialty Diagnoses / Procedures Referred By [facility] Referred To Contact MR IMAGING Diagnoses Other specified disorders of kidney and ureter Procedures MRI KIDNEY WO/W IVCON MRI ABDOMEN W/O & W/CONTRAST MATERIAL Jonny Arnett MD [address] [phone] Mr Imaging [facility] Referral ID Status Reason Start Date Expiration Date V isits Requested Visits Authorized [id number] Closed Auto-Generate d Referral 01/04/2024 02/02/2024 1 1 [facility] Summary Purpose Family History No Family History Records FoundNo Family History Records FoundNo Family History Records Found No data available for this section No data available for this section No data available for this section No Family History Records Found No data available for this section No data available for this section No data available for this section No Family History Records FoundNo Family History Records FoundNo Family History Records Found Advance Directives No Advanced Directives Records FoundNo Advanced Directives Records FoundNo Advanced Directives Records FoundNo Advanced Directives Records FoundNo Advanced Directives Records FoundNo Advanced Directives Records FoundNo Advanced Directives Records Found Reason for Referral Specialty Diagnoses / Procedures Referred By Contac t Referred To Contact CT IMAGING Diagnoses History of renal cell cancer Procedures CT CHEST WO IVCON DIAGNOSTIC COMPUTED TOMOGRAPHY THORAX W/O CNTRST Jada Santo, DIRECTOR OF CORPORATE MARKETING.YARD HAND [phone] [facility] [place] [address] Referral ID Status Reason Start Date Expiration Date Visits Requested Visits Authorized [id number] Pending Review Auto-Generat ed Referral 04/26/2024 05/26/2025 1 1 Specialty Diagnoses / Procedures Referred By Contac t Referred To Contact MR IMAGING Diagnoses History of renal cell cancer Procedures MRI ABDOMEN WO/W IVCON MRI ABDOMEN W/O & W/CONTRAST MATERIAL Jada Santo, DIRECTOR OF [employer] MARKETING.[employer]ARD [employer] [address] [phone] Mr Imaging [place] [address] Referral ID Status Reason Start Date Expiration Date Visits Requested Visits Authorized [id number] Pending Review Auto-Generat ed Referral 04/26/2024 05/26/2025 1 1 Specialty Diagnoses / Procedures Referred By Contac t Referred To Contact Gastroenterology Diagnoses Pancreatic cyst Procedures CONSULT TO GASTROENTEROLOGY OFFICE/OUTPATIENT [facility] 60 MINUTES Jada Santo, DIRECTOR OF CORPORATE MARKETING.YARD HAND [address] [phone] Referral ID Status Reason Start Date Expiration Date Visits Requested Visits Authorized [id number] Authorized PCP Requested Referral 04/26/2024 04/26/2025 1 1 Specialty Diagnoses / Procedures Referred By Contac t Referred To Contact MR IMAGING Diagnoses Renal cell carcinoma of left kidney (HCC) Procedures MRI ABDOMEN WO/W IVCON MRI ABDOMEN W/O & W/CONTRAST MATERIAL Jada Santo, DIRECTOR OF CORPORATE MARKETING.YARD HAND [address] [place] [address] Mr Imaging [facility] Referral ID Status Reason Start Date Expiration Date Visits Requested Visits Authorized [id number] Pending Review Auto-Generat ed Referral 01/25/2024 02/23/2025 1 1 Specialty Diagnoses / Procedures Referred By Andrew paredes Referred To Contact CT IMAGING Diagnoses Renal cell carcinoma of left kidney (HCC) Procedures CT CHEST WO IVCON DIAGNOSTIC COMPUTED TOMOGRAPHY THORAX W/O CNTRST Jada Santo, DIRECTOR OF CORPORATE MARKETING.[employer]ARD HAND [phone] Imaging [place] [address] Referral ID Status Reason Start Date Expiration Date Visits Requested Visits Authorized [id number] Pending Review Auto-Generat ed Referral 01/25/2024 02/23/2025 1 1 Specialty Diagnoses / Procedures Referred By Andrew paredes Referred To Contact Nephrology Diagnoses H/O left nephrectomy Stage 3b chronic kidney disease (HCC) Procedures CONSULT TO NEPHROLOGY OFFICE/OUTPATIENT [facility] MDM 60 MINUTES Jada Santo, DIRECTOR OF [employer]PORATE MARKETING.YARD HAND [address] [place] [address] Referral ID Status Reason Start Date Expiration Date Visits Requested Visits Authorized [id number] Authorized PCP Requested Referral 01/25/2024 01/24/2025 1 1 Additional Source Comments (unrecognized sect ion and content) No Status Records FoundNo Status Records FoundNo Status Records FoundNo Status Records FoundNo Status Records FoundNo Status Records FoundNo Status Records Found INFORMATION SOURCE (unrecogn ized section and content) DATE CREATED AUTHOR 05/25/2018 [facility] DATE CREATED AUTHOR AUTHOR'S ORGANIZ ATION 01/26/2021 [facility] DATE CREATED AUTHOR AUTHOR'S ORGANIZ ATION 07/12/2023 [facility] DATE CREATED AUTHOR AUTHOR'S ORGANIZ ATION 11/26/2023 [facility] DATE CREATED AUTHOR AUTHOR'S ORGANIZ ATION 04/26/2024 [facility] DATE CREATED AUTHOR AUTHOR'S ORGANIZ ATION 06/17/2024 [facility] DATE CREATED AUTHOR AUTHOR'S ORGANIZ ATION 06/17/2024 [facility] Patient Care team informatio n (unrecognized section and content) Fancy Sewer Relationship Specialty Start Date End Date Adan Lamar MD [address] [place] [facility] [address] PCP - General Family Medicine 12/22/23 Fancy Sewer Relationship Specialty Start Date End Date Adan Lamar MD [address] [place] [facility] [address] PCP - General Family Medicine 12/22/23 Fancy Sewer Relationship Specialty Start Date End Date Adan Lamar MD [address] [place] [address] PCP - General Family Medicine 12/22/23 Fancy Sewer Relationship Specialty Start Date End Date Adan Lamar MD [address] [facility], [phone] PCP - General Family Medicine 12/22/23 Fancy Sewer Relationship Specialty Start Date End Date Adan Lamar MD [address] [place] [address] PCP - General Family Medicine 12/22/23 Fancy Sewer Relationship Specialty Start Date End Date Adan Lamar MD [address] [facility]], [place] [address] PCP - General Family Medicine 12/22/23 Fancy Sewer Relationship Specialty Start Date End Date Adan Lamar MD [address] [place] [address] PCP - General Family Medicine 12/22/23 Fancy Sewer Relationship Specialty Start Date End Date Adan Lamar MD [address] [facility]], [place] [address] PCP - General Family Medicine 12/22/23 Fancy Sewer Relationship Specialty Start Date End Date Adan Lamar MD [address] [facility]], [place] [address] PCP - General Family Medicine 12/22/23 Fancy Sewer Relationship Specialty Start Date End Date Adan Lamar MD [address] [facility]], [place] [address] PCP - General Family Medicine 12/22/23 Fancy Sewer Relationship Specialty Start Date End Date Adan Lamar MD [address] [facility]], [place] [address] PCP - General Family Medicine 12/22/23 Fancy Sewer Relationship Specialty Start Date End Date Adan Lamar MD [address] [facility]], [place] [address] PCP - General Family Medicine 12/22/23 Fancy Sewer Relationship Specialty Start Date End Date Adan Lamar MD [address] [facility]], [place] [address] PCP - General Family Medicine 12/22/23 Source Comments (unrecognize d section and content) In the event this informatio n is protected by the Federal Confidentiality of Alcohol and Drug Abuse Patient Records regulations: The Federal rules restrict any use of the information to criminally investigate or prosecute any alcohol or drug abuse patient.[facility] the event this information is protected by the Federal Confidentiality of Alcohol and Drug Abuse Patient Records regulations: The Federal rules restrict any use of the information to criminally investigate or prosecute any alcohol or drug abuse patient.[facility] Hospital[facility] the event this information is protected by the Federal Confidentiality of Alcohol and Drug Abuse Patient Records regulations: The Federal rules restrict any use of the information to criminally investigate or prosecute any alcohol or drug abuse patient.[facility] Hospital[facility] the event this information is protected by the Federal Confidentiality of Alcohol and Drug Abuse Patient Records regulations: The Federal rules restrict any use of the information to criminally investigate or prosecute any alcohol or drug abuse patient.[facility] Hospital[facility] the event this information is protected by the Federal Confidentiality of Alcohol and Drug Abuse Patient Records regulations: The Federal rules restrict any use of the information to criminally investigate or prosecute any alcohol or drug abuse patient.[facility] HospitalIn the event this information is protected by the Federal Confidentiality of Alcohol and Drug Abuse Patient Records regulations: The Federal rules restrict any use of the information to criminally investigate or prosecute any alcohol or drug abuse patient.[facility] Hospital[facility] the event this information is protected by the Federal Confidentiality of Alcohol and Drug Abuse Patient Records regulations: The Federal rules restrict any use of the information to criminally investigate or prosecute any alcohol or drug abuse patient.[facility] Hospital[facility] the event this information is protected by the Federal Confidentiality of Alcohol and Drug Abuse Patient Records regulations: The Federal rules restrict any use of the information to criminally investigate or prosecute any alcohol or drug abuse patient.[facility] HospitalIn the event this information is protected by the Federal Confidentiality of Alcohol and Drug Abuse Patient Records regulations: The Federal rules restrict any use of the information to criminally investigate or prosecute any alcohol or drug abuse patient.[facility] HospitalIn the event this information is protected by the Federal Confidentiality of Alcohol and Drug Abuse Patient Records regulations: The Federal rules restrict any use of the information to criminally investigate or prosecute any alcohol or drug abuse patient.[facility] HospitalIn the event this information is protected by the Federal Confidentiality of Alcohol and Drug Abuse Patient Records regulations: The Federal rules restrict any use of the information to criminally investigate or prosecute any alcohol or drug abuse patient.[facility] HospitalIn the event this information is protected by the Federal Confidentiality of Alcohol and Drug Abuse Patient Records regulations: The Federal rules restrict any use of the information to criminally investigate or prosecute any alcohol or drug abuse patient.[facility] HospitalIn the event this information is protected by the Federal Confidentiality of Alcohol and Drug Abuse Patient Records regulations: The Federal rules restrict any use of the information to criminally investigate or prosecute any alcohol or drug abuse patient.[facility] HospitalIn the event this information is protected by the Federal Confidentiality of Alcohol and Drug Abuse Patient Records regulations: The Federal rules restrict any use of the information to criminally investigate or prosecute any alcohol or drug abuse patient.[facility] Reason for Visit (unrecogniz ed section and content) Reason Comments Radiology NM Specialty Diagnoses / Procedures Referred By Contac t Referred To Contact MOLECULAR & FUNCTIONAL IMAGING Diagnoses Acquired cyst of kidney Procedures NM RENAL FLOW/FXN WO PHARM KIDNEY IMG MORPHOLOGY VASCULAR FLOW 1 W/O RX Jonny Arnett MD [address] [place] [address] Molecular & Functional Imaging [address] [place] [address] Referral ID Status Reason Start Date Expiration Date V isits Requested Visits Authorized [id number] Closed Auto-Generate d Referral 12/21/2023 11/28/2024 1 1 Reason Comments Returning Patient's Call Reason Comments Follow Up Phone Call All Clear Reason Comments Post-Op Visit Reason Comments New Patient Reason Comments Consult Specialty Diagnoses / Procedures Referred By Contac t Referred To Contact Nephrology Diagnoses H/O left nephrectomy Stage 3b chronic kidney disease (HCC) Procedures CONSULT TO NEPHROLOGY OFFICE/OUTPATIENT NEW HIGH MDM 60 MINUTES Jada Santo APRN.CAROLYN [address] [place] [address] Referral ID Status Reason Start Date Expiration Date V isits Requested Visits Authorized [id number] Closed PCP Requested Referral 01/25/2024 01/24/2025 1 1 Specialty Diagnoses / Procedures Referred By Contac t Referred To Contact CT IMAGING Diagnoses Renal cell carcinoma of left kidney (HCC) Procedures CT CHEST WO IVCON DIAGNOSTIC COMPUTED TOMOGRAPHY THORAX W/O CNTRST Jada Santo APRN.YARD HAND [address] [place] [address] Ct Imaging [place] [address] Referral ID Status Reason Start Date Expiration Date V isits Requested Visits Authorized [id number] Closed Auto-Generate d Referral 01/25/2024 02/23/2025 1 1 Specialty Diagnoses / Procedures Referred By Contac t Referred To Contact MR IMAGING Diagnoses Renal cell carcinoma of left kidney (HCC) Procedures MRI ABDOMEN WO/W IVCON MRI ABDOMEN W/O & W/CONTRAST MATERIAL Jada Santo APRN.YARD HAND [address] [place] [address] Mr Imaging [place] [address] Referral ID Status Reason Start Date Expiration Date V isits Requested Visits Authorized [id number] Closed Auto-Generate d Referral 01/25/2024 02/23/2025 1 1 Reason Comments Follow Up Reason Comments Follow Up FOR RECORDS PERTAINING TO PATIENTS WHO ARE [...] BE BASED ON THE PRIMARY CLINICAL RECORDS. [email or web address] provides no warranty or guarantee of the accuracy or completeness of information in this document.
== END 2024-06-30 08:45 | disposition home or self-care (01) ==
LOC: EC 08:44
PROVIDERS: PCP Family Medicine; Visit Provider Orthopaedic Surgery Orthopaedic Surgery of the Spine
DX: M54.50 Low back pain, unspecified (principal); M51.36 Other intervertebral disc degeneration, lumbar region
CPT/HCPCS: 72100

== ENCOUNTER 2024-08-10 07:52 | Outpatient (OUT) | payer OTHER, MEDICARE, SELFPAY ==
--- NOTE | 2024-08-10 08:22 | PM.CN ---
Consult Note: HPI Data of Consult Requesting Physician: Taylor Velazco NP Primary Care Provider: Thomas De Santiago MD Consult Narrative Reason for consult: establish Narrative: Venkat Cadena a pleasant 64 year old man presents for evaluation and management of chronic right hip and leg pain for greater than 8 years without initial injury or inticing event. Patient has failed to benefit from greater than 6 weeks of PT and landcare facilitator, mild-moderate benefit to traction. hx of renal cancer with nephrectomy 2023, cannot take NSAIDs. patient has found no improvement with heat/ice, mild-moderate improvement with tylenol. Patient has an updated lumbar xray and MRI with results below, was evaluated by Dr Isidro who deemed pt nonsurgical and recommended right SIJ injection. Pain today 2/10 increasing to 6/10 with standing walking and twisting. cc:: CC: Taylor Velazco NP Review of Systems ROS Status of ROS 10 or more systems reviewed and unremarkable except as noted in history and below Musculoskeletal Reports: extremity pain and joint pain PFSH PFSH Social History Smoking status: Former smoker Meds Home Medications and Allergies Home Medications ?Medication ?Instructions ?Recorded ?Confirmed ?Type allopurinol 300 mg tablet 300 mg PO DAILY 11/23/23 11/23/23 History omeprazole 40 mg capsule,delayed 40 mg PO DAILY 11/23/23 11/23/23 History release sildenafil 100 mg tablet 100 mg PO PRN sexual activity 11/23/23 History tamsulosin 0.4 mg capsule 0.4 mg PO Q24H 11/23/23 11/23/23 History terbinafine HCl 250 mg tablet 250 mg PO DAILY 11/23/23 11/23/23 History vibegron 75 mg tablet (Gemtesa) 75 mg PO DAILY 11/23/23 11/23/23 History Allergies Allergy/AdvReac Type Severity Reaction Status Date / Time No Known Drug Allergies Allergy Verified 11/23/23 03:32 Exam Constitutional Documenting provider has reviewed patient's vital signs: yes Common normals: no apparent distress, oriented x3, healthy appearing, alert and well nourished General appearance: cooperative HENOK Common normals: normocephalic, hearing grossly normal bilaterally and moist oral mucous membranes Head and scalp: normocephalic Eye Common normals: PERRL Pupil: PERRL Neck & C-Spine Common normals: full ROM General: normal visual inspection Chest Common normals: inspection of chest normal Respiratory Common normals: normal respiratory effort, no retractions and no use of accessory muscles Back & Pelvis Lumbar spine/lower back: normal to inspection, lumbar ROM normal and straight leg raise negative bilaterally; no pain with ROM Sacroiliac joints: SI joint(s) abnormal Other: right positive linden(patricks), gaenslens, thigh thrust, compression test intermittent numbness tingling heaviness to RLE following l4/5 pattern Extremity Common normals: normal to inspection and full ROM Neuro Common normals: oriented x3, CN's II-XII intact bilaterally, moves all extremities, no focal motor deficits, no sensory deficits noted, deep tendon reflexes 2+ bilaterally and gait normal Sensorium/orientation: alert Motor exam: strength 5/5 throughout and no movement abnormalities noted Psych Common normals: mental status grossly normal, thought process normal, cooperative, affect normal, speech normal and activity/motor behavior normal Speech: normal speech Thought process: normal thought process Results Imaging Lumbar MRI: Attestation: I have reviewed the pertinent imaging results. Radiologist's impression: For the purposes of numbering, sagittal T2 image # 8 extends from the T11 vertebral body superiorly to the S2-S3 level inferiorly. PARASPINAL AREA: Normal with no visible mass. BONES: Normal alignment with no acute fracture, spondylolisthesis or bone edema. Moderate diffuse degenerative spondylosis CORD/CAUDA EQUINA: Normal caliber, contour, and signal intensity. DISC LEVELS: 12-L1: Early degenerative disc disease is present without focal protrusion or neural impingement. L1-L2: Disc space narrowing and disc desiccation. Broad-based disc protrusion extending up to 2.5 mm. No central or foraminal stenosis L2-L3: Disc desiccation. No disc bulge or herniation. No central or foraminal stenosis L3-L4: Moderate disc space narrowing and disc desiccation. Mild posterior disc protrusion. No central or foraminal stenosis L4-L5: Mild disc desiccation. Mild posterior broad-based disc protrusion extending up to 2 mm. No central or foraminal stenosis L5-S1: No significant disc/facet abnormality, spinal stenosis, or foraminal stenosis. Lumbar Xray: Attestation: I have reviewed the pertinent imaging results. Radiologist's impression: FINDINGS: BONES: Mild anterior wedging of T12 and L1 with prominent anterior endplate osteophytes. Mild grade 1 retrolisthesis of L1 on L2; no change in alignment during flexion and extension. Mild degenerative facet arthropathy L4-L5, L5-S1. DISC SPACES: Mild narrowing L3-L4, L4-L5. PARASPINOUS: Negative. No paraspinous abnormality is seen. OTHER: Negative. Assessment and Plan Assessment and Plan (1) Sacroiliitis: (2) Lumbar stenosis with neurogenic claudication: (3) Lumbar spondylosis: Plan proceed with right SIJ injection under fluoroscopy, risks vs benefits reviewed can continue traction PRN at home continue PRN tylenol not to exceed 3000mg daily f/u 1-2 weeks after injection
== END 2024-08-10 07:53 | disposition home or self-care (01) ==
LOC: PM 07:52
PROVIDERS: PCP Family Medicine; Visit Provider Nurse Practitioner
DX: M46.1 Sacroiliitis, not elsewhere classified (principal); M48.062 Spinal stenosis, lumbar region with neurogenic claudication; M47.816 Spondylosis without myelopathy or radiculopathy, lumbar region
CPT/HCPCS: G0463

== ENCOUNTER 2024-08-21 06:37 | Day surgery (SDC) | payer OTHER, MEDICARE, SELFPAY ==
--- OUTSIDE RECORDS SUMMARY | 2024-08-21 06:41 | XMS_ITS | CCD ---
Author Organization [facility] CliniSyme Care Team Providers Care Animal Science Professor Name Role Phone ARIE, MARYLIN Unavailable Unavailable ARIE, MARYLIN Unavailable Unavailable ARIE, MARYLIN Unavailable Unavailable ADAN LAMAR Unavailable Unavailable ADAN LAMAR Primary Care Unavailable DAVEY JARA Admitting Unavailable DEMARCO JARARICK Consulting Unavailable DEMARCO JARARICK Attending Unavailable ADAN LAMAR Consulting Unavailable ADAN LAMAR Attending Unavailable ADAN LAMAR Admitting Unavailable DANICA MUNROE Admitting Unavailable DANICA MUNROE Consulting Unavailable DANICA MUNROE Attending Unavailable Adan Lamar Primary Care Physician ADAN LAMAR Primary Care Unavailable AMRIK MUNROE Attending Unavailable Adan Lamar MD Primary Care Provider Adan Lamar MD Primary Care Provider Unavailable Primary Care Provider UnavailAdan Lomeli MD Primary Care Provider ADAN LAMAR Primary Care Unavailable SOBEIDA, JADA Referring Unavailable ADAN LAMAR Primary Care Unavailable BLACK SANTOIKA Referring Unavailable RAI CHAPMAN Admitting Unavailable RAI CHAPMAN Attending Unavailable Davey JARA R Attending Unavailable Orzech, Jerica X Attending Unavailable JARA, Davey R Attending Unavailable JARA, Davey R Attending Unavailable JARA, Davey R Attending Unavailable JARA, Davey R Attending Unavailable JARA, Davey R Admitting Unavailable JARA, Davey R Attending Unavailable Orzech, Jerica X Admitting Unavailable Orzoraida, Jerica X Attending Unavailable ADAN LAMAR Primary Care Unavailable JAYNE SILVEIRA Referring Unavailable ADAN LAMAR Primary Care Unavailable JONNY ARNETT Referring Unavailab le ADAN LAMAR Primary Care Unavailable ADAN LMAAR Primary Care Unavailable CHARLOTTE LINDSEY Referring Unavailable HOY, ADAN M Primary Care Unavailable HOY, ADAN M Primary Care Unavailable CHARLOTTE LINDSEY Attending Unavailable CHARLOTTE LINDSEY Referring Unavailable WARMINSKIJADA Attending Unavailable HOY, ADAN M Primary Care Unavailable HOY, ADAN M Primary Care Unavailable GADEGBEKU, CRYSTAL A Attending Unavailable HOY, ADAN M Primary Care Unavailable GADEGBEKU, CRYSTAL A Referring Unavailable HOY, ADAN M Primary Care Unavailable GATO BANDA Attending Unavailable CHARLOTTE LINDSEY Admitting Unavailable CHARLOTTE LINDSEY Attending Unavailable WARMINSKI, JADA Referring Unavailable HOY, ADAN M Primary Care Unavailable GADEGBEKU, CRYSTAL A Attending Unavailable HOY, ADAN M Primary Care Unavailable JONNY ARNETT Referring Unavailab le JONNY ARNETT Referring Unavailab le HOY, ADAN M Primary Care Unavailable HOY, ADAN M Primary Care Unavailable CHARLOTTE LINDSEY Attending Unavailable JONNY ARNETT Referring Unavailab le HOY, ADAN M Primary Care Unavailable Allergies Allergy Classification Reported Allergen(s) Allergy Type Date of Onset Reaction(s) Facility (2 sources) Ciprofloxacin; Translations: [ciprofloxacin] Drug Allergy Unknown [facility] Medications Current Medications Medication [...] Comment on above: Take 1 capsule by [facility] two times a day for 15 days. [...] guidelines link. lisinopril 5 mg oral tablet (6 sources) Angiotensin Converting Enzyme Inhibitor Start: take 1 tablet by mouth once daily lisinopril (ZESTRIL) 5 mg tablet Take 1 tablet by mouth once daily. 90 tablet 3 06/30/2024 Active Start: 04-11-2024 take 1 tablet by prabhjot th once daily lisinopril (ZESTRIL) 5 mg tablet Take 1 tablet by mouth once daily. 30 tablet 3 04/11/2024 Active 24 hr mirabegron 50 mg extended release oral tablet (2 sources) beta3-Adrenergic Agonist Start: 04-27-2023 take 1 tablet by mouth once daily Myrbetriq 50 mg oral tablet, extended release 50 mg = 1 tab(s), Oral, Daily, # 90 tab(s), Refills(s) 3, Pharmacy: [facility], 178, cm, 02/18/23 13:55:00 EDT, Height/Length [...] # 30 cap(s), Refills(s) 2, Pharmacy: [facility]/pharmacy #[id number], 178, cm, 05/05/23 8:17:00 EDT, Height/Length Dosing, 87, kg, 05/05/23 8:17:00 EDT, Weight Dosing Start Date: 05/05/23 Status: Ordered oxyCODONE hydrochloride 5 mg oral tablet (1 source) Opioid Agonist Start: 01-07-2024 End: 01-12-2024 take 1 tablet by mouth every six [...] with other pain medications. polyethylene glycol 3350 655731 mg / potassium chloride 1480 mg / sodium bicarbonate 5720 mg / sodium chloride 90496 mg powder for oral solution (2 sources) Osmotic Laxative Start: 07-12-2023 take 2 doses by mouth every other day NuLYTELY Jama oral powder for reconstitution See Instructions, 2 EA, Refill(s) 0, 2 day colon prep., [facility]/pharmacy #[id number], 178, cm, 07/12/23 14:08:00 EDT, Height/Length Dosing, 87.5, kg, 07/12/23 14:08:00 EDT, Weight Dosing Start Date: 07/12/23 Status: Ordered Start: 05-05-2023 NuLYTELY Cherr y oral powder for reconstitution See Instructions, 1 EA, Refill(s) 0, See physician instructions prior to procedure., [facility]/pharmacy #[id number], 178, cm, 05/05/23 8:17:00 EDT, Height/Length [...] on above: take 1 tablet by prabhjot as directed 1 HOUR PRIOR TO SEXUAL ACTIVITY tamsulosin hydrochloride 0.4 mg oral capsule (17 sources) alpha-Adrenergic Radames Start: take 1 capsule by mouth once daily at bedtime tamsulosin (FLOMAX) 0.4 mg Take 1 capsule by mouth daily at bedtime. 30 capsule 11 12/21/2023 Active Start: 11-16-2023 End: 12-16-2023 take 1 capsule by mouth once daily tamsulosin 0.4 mg Cap 0.4 mg = 1 cap(s), Oral, Daily, X 30 day(s), # 30 cap(s), Refills(s) 0, Pharmacy: [facility]/pharmacy #[id number], 177, cm, 11/11/23 8:06:00 EST, Height/Length Dosing, 86.5, kg, 11/11/23 8:06:00 EST, Weight Dosing Start Date: 11/16/23 Stop Date: 12/16/23 Status: Ordered Comment on above: Take 1 capsule by mo [facility] daily at bedtime. terbinafine 250 mg oral tablet (3 sources) Allylamine Antifungal Start: 11-11-2023 terbinafine 250 mg Tab Refills(s) 0 Start Date: 11/11/23 Status: Ordered vibegron (GEMTESA) 75 mg tablet (14 sources) Start: 11-23-2023 vibegron (GEMTESA) 75 mg tablet Take by mouth. 11/23/2023 Active Start: 11-23-2023 vibegron (GEMT JESSICA) 75 mg tablet Take by mouth. 0 11/23/2023 Active Comment on above: Take by mouth. vibegron 75 MG Oral Tablet [Gemtesa] (9 sources) Start: 09-09-2023 End: 09-03-2024 take 1 tablet by mouth once daily Gemtesa 75 mg oral tablet 75 mg = 1 tab(s), Oral, Daily, X 90 day(s), # 90 tab(s), Refills(s) 3, Pharmacy: [facility], 178, cm, 07/12/23 14:08:00 EDT, Height/Length Dosing, 87.5, kg, 07/12/23 14:08:00 EDT, Weight Dosing Start Date: 09/09/23 Stop Date: 09/03/24 Status: Ordered Start: 04-28-2023 End: 04-22-2024 take 1 tablet by mouth once daily Gemtesa 75 mg oral tablet 75 mg = 1 tab(s), Oral, Daily, X 90 day(s), # 90 tab(s), Refills(s) 3, Pharmacy: [facility]/pharmacy #[id number], 178, cm, 02/18/23 13:55:00 EDT, Height/Length Dosing, 86.5, kg, 02/18/23 13:55:00 EDT, Weight Dosing Start Date: 04/28/23 Stop Date: 04/22/24 Status: Ordered Start: 08-31-2022 End: 08-26-2023 take 1 tablet by mouth once daily Gemtesa 75 mg oral tablet 75 mg = 1 tab(s), Oral, Daily, X 90 day(s), # 90 tab(s), Refills(s) 3, Pharmacy: [facility], 177, cm, 09/22/21 14:37:00 EDT, Height/Length [...] Orally Once a day for 90 days Active Comment on above: 1 tablet Orally Once a day for 90 days cephalexin 500 mg oral capsule (2 sources) Cephalosporin Antibacterial Start: 09-28-20 take 1 capsule by mouth once daily Keflex 500 mg Cap 500 mg = 1 cap(s), Oral, Daily, Take 1 tab day before procedure and 1 after procedure, # 2 cap(s), Refills(s) 0, Pharmacy: [facility]/pharmacy #[id number], 177, cm, 09/28/22 14:37:00 EDT, Height/Length Dosing, 87, kg, 09/28/22 14:37:00 EDT, Weight Dosing Start Date: 09/28/22 Status: Ordered ciprofloxacin 500 mg oral tablet (3 sources) Quinolone Antimicrobial Start: 11-26-20 Cipro 500 mg Tab 500 mg = 1 tab(s), Oral, As Directed, Take 1 pill the day before procedure, then 1 pill after the procedure., # 2 tab(s), Refills(s) 0, Pharmacy: [facility] #[id number], 177, cm, 11/11/23 8:06:00 EST, Height/Length Dosing, [...] except renal pelvis] Onset: 4 01-25-2024 Chronic Cancer; other and unspecified primary (9 sources) [...] source) Long-term current use of anticoagulant; Translations: [MCFP (current) use of anticoagulants] Onset: 3 Episodic Other diseases of bladder and urethra (9 sources) Urethral stricture 07-12-2019 Episodic Other diseases of kidney and ureters (14 sources) Renal mass; Translations: [Other specified disorders [...] Onset: 3 Episodic Other male genital disorders (17 sources) Male erectile dysfunction, unspecified; Translations: [Erectile dysfunction] Onset: 3 Chronic Other nutritional; endocrine; and metabolic disorders (9 sources) Body mass index 25-29 - overweight 11-19-2020 Episodic Residual codes; unclassified (20 sources) Sleep apnea; Translations: [Sleep apnea, unspecified] Onset: 4 07-12-2019 Chronic Residual codes; unclassified (9 sources) Reduced libido 01-27-2021 Episodic Residual codes; unclassified (5 sources) History of nephrectomy; Translations: [Acquired absence of kidney] 01-25-2024 Episodic Retinal detachments; defects; vascular occlusion; and [...] malignant neoplasm of bladder] Onset: 09-24-2023 Episodic Cancer of kidney and renal pelvis (4 sources) History of malignant neoplasm of retroperitoneum; Translations: [Personal history of other malignant neoplasm of kidney] Onset: 04-26-2024 04-26-2024 Episodic Fracture of lower limb (4 sources) [...] other viral diseases] Onset: 08-09-2020 Episodic Other aftercare (1 source) Encounter for follow-up examination after completed treatment for malignant neoplasm; Translations: [Encounter for follow-up surveillance of kidney cancer] Onset: 04-26-2024 Episodic Other diseases of kidney and ureters (1 source) Other obstructive and reflux uropathy; Translations: [Benign prostatic hyperplasia with urinary obstruction] Onset: 01-04-2024 Episodic Other diseases of kidney and ureters (1 source) Cyst of kidney, acquired; Translations: [Acquired cyst of kidney] Onset: 01-05-2024 Episodic Other gastrointestinal disorders (20 sources) History of esophageal ulcer; Translations: [Personal history of other diseases of the digestive system] Onset: 01-06-2024 07-12-2023 Episodic Other screening for suspected conditions (not mental disorders or infectious disease) (16 sources) Raised prostate specific antigen; Translations: [Screening for malignant neoplasm of colon done] Onset: 05-05-2023 10-31-2019 Episodic Pancreatic disorders (not diabetes) (3 sources) Cyst of pancreas; Translations: [Cyst of pancreas] Onset: 04-26-2024 04-26-2024 Episodic Residual codes; unclassified (1 source) Acquired absence of kidney; Translations: [H/O left nephrectomy] Onset: 03-24-2024 Episodic Results Test Name Value Interpretation Reference Range Facility Reminderson 07-26-2024 Reminders Reminders From: Nohemi Gomez To: [place] - Recalls Jara; Sent: 07/26/2024 08:55:05 EDT Show up: 09/29/2024 08:54:00 EDT Subject: Cysto/fish/cytol Due Date/Time: 10/23/2024 08:55:00 EST Reminder/Recall Patient is due n Nov 2024 for 1 year cysto/fish/cytol (bt ck) Normal [facility] Renal function 2000 panelon 06-16-2024 Albumin [Mass/Vol] 4.7 g/dL Normal 3.9-4.9 [facility] Comment on above: Order Comment: Speci men Type: BLOOD SPECIMENOrdering Facility: [facility] Address: [address] [place] [address] Performed By: #### 2 4362-6 ####[facility] LABCLIA [id number] [place] [address] Anion gap [Moles/Vol] 8 mmol/L Normal 8-15 [facility] Comment on above: Order Comment: Speci men Type: BLOOD SPECIMENOrdering Facility: [facility] Address: [address] [place] [address] Performed By: #### 2 4362-6 ####[facility] LABCLIA [id number] [place] [address] Calcium [Mass/Vol] 10.5 mg/dL High 8.5-10.2 [facility] Comment on above: Order Comment: Speci men Type: BLOOD SPECIMENOrdering Facility: [facility] Address: [address] [place] [address] Performed By: #### 2 4362-6 ####[facility] LABCLIA [id number] [place] [address] Chloride [Moles/Vol] 105 mmol/L Normal 98-107 [facility] Comment on above: Order Comment: Speci men Type: BLOOD SPECIMENOrdering Facility: [facility] Address: [address] [place] [address] Performed By: #### 2 4362-6 ####[facility] LABCLIA [id number] [place] [address] CO2 [Moles/Vol] 29 mmol/L Normal 22-30 [facility] Comment on above: Order Comment: Speci men Type: BLOOD SPECIMENOrdering Facility: [facility] Address: [address] [place], [place] [id number] Performed By: #### 2 4362-6 ####[facility] LABCLIA [id number] [place] [address] Creatinine [Mass/Vol] 1.79 mg/dL High 0.73-1.22 [facility] Comment on above: Order Comment: Tianna yuan Type: BLOOD SPECIMENOrdering Facility: [facility] Address: [address] [place] [address] Performed By: #### 2 4362-6 ####[facility] LABCLIA [id number] [place] [address] Creatinine and Glomerular filtration rate.predicted panel (S/P/Bld) 42 mL/min/1.73m??? Low >=60 [facility] Comment on above: Order Comment: Tianna yuan Type: BLOOD SPECIMENOrdering Facility: [facility] Address: [address] [place] [address] Result Comment: Alexandra mated Glomerular Filtration Rate [...] actual GFR. Performed By: #### 2 4362-6 ####[facility] LABIA [id number] [place] [address] Glucose [Mass/Vol] 102 mg/dL High 74-99 [facility] Comment on above: Order Comment: Tianna yuan Type: BLOOD SPECIMENOrdering Facility: [facility] Address: [address] [place] [address] Result Comment: The [place] Diabetes Association (ADA) provides guidance for cutoff [...] Standards of Medical Care in Diabetes 2016, [place] Diabetes Association. Diabetes Care. 2016.39(Suppl 1). Performed By: #### 2 4362-6 ####[facility] LABCLIA [id number] [place] [address] Phosphate [Mass/Vol] 3.1 mg/dL Normal 2.7-4.8 [facility] Comment on above: Order Comment: Speci men Type: BLOOD SPECIMENOrdering Facility: [facility] Address: [address] [place] [address] Performed By: #### 2 4362-6 ####[facility] LABIA [id number] [place] [address] Potassium [Moles/Vol] 4.7 mmol/L Normal 3.7-5.1 [facility] Comment on above: Order Comment: Speci men Type: BLOOD SPECIMENOrdering Facility: [facility] Address: [address] [place] [address] Performed By: #### 2 4362-6 ####[facility] LABIA [id number] [place] [address] Sodium [Moles/Vol] 142 mmol/L Normal 136-144 [facility] Comment on above: Order Comment: Speci men Type: BLOOD SPECIMENOrdering Facility: [facility] Address: [address] [place] [address] Performed By: #### 2 4362-6 ####[facility] LABCLIA [id number] [place] [address] Urea nitrogen [Mass/Vol] 29 mg/dL High 9-24 [facility] Comment on above: Order Comment: Speci men Type: BLOOD SPECIMENOrdering Facility: [facility] Address: [address] [place], [place] [address] Performed By: #### 2 4362-6 ####[facility] LABCLIA [id number] [place] [address] Provider Letteron 06-13-2024 Provider Letter Provider Letter June 13, 2024 ASHLEY LEDESMA [address] [place] [address] : 1960 Dear Ashley, We are reaching out to speak with you about scheduling your 1 year repeat colonoscopy for May of 2024. We are now scheduling for June or later with Dr. Bullock. Please contact our office at [phone] if you would like to proceed with scheduling. Sincerely, [facility] Schedulers [facility] Reminderson 06-13-2024 Reminders Reminders From: Suzie Wheeler To: [facility] - Reminders/Recalls; Sent: 09/08/2023 08:58:16 EDT Show up: 04/17/2024 08:57:00 EDT Subject: Ambulatory Reminder Reminder/Recall Please call patient to schedule colonoscopy he wanted to wait till closer to the year dylon than doing it sooner. Patient had last one on 06/18/23. Noted in chart to do Nulytely with 2 day prep. From: Donna Troncoso ([facility] - Reminders/Recalls) To: Debora Medina; Sent: 04/20/2024 13:22:04 EDT ! Show up: 04/20/2024 13:21:00 EDT letter sent Normal [facility] CNOVon 06-07-2024 CNOV Office Visit (KIDMMN ) ASHLEY LEDESMA ([id number]) 1960 M Date Time Provider Department 06/07/24 11:40 AM JAYNE SILVEIRA During your visit today, we recorded the following information about you: Pulse Blood pressure Weight Height 74/minute 165/87 84.5 kg 1.778 m Jayne Silveira MD 06/13/2024 8:40 PM Signed Department of Kidney Medicine Medical Specialties [facility] SERVICE DATE: 06/07/2024 SERVICE TIME: 11:55 AM [...] studies, and office notes were reviewed in [facility] Latest Reference Range AND Units 06/07/24 [...] Color Yellow Yellow Clarity Clear Clear Specific [place], Ur 1.005 - 1.030 1.008 pH, Urine [...] appear uncontrolled (more content not included)... [facility] CYSTATIN Con 06-07-2024 Cystatin C [Mass/Vol] 1.23 mg/L High 0.61 - 0.95 mg/L [facility] Cystatin C eGFR 58 Low - PINF [facility] Comment on above: Estimated Glomerular Filtration [...] Cystatin C [Mass/Vol] 1.23 mg/L High 0.61-0.95 [facility] Comment on above: Order Comment: Speci men Type: BLOOD SPECIMENOrdering Facility: [facility] Address: [address] [place] [address] Performed By: #### C [facility], [address]32[address]-6 ####[facility] LABCLIA [id number] [place] [address] [place] CYSTATIN C EGFR 58 mL/min/1.73m??? Low >=60 [facility] Comment on above: Order Comment: Speci men Type: BLOOD SPECIMENOrdering Facility: [facility] Address: [address] [id number] Result Comment: Alexandra mated Glomerular Filtration Rate (eGFR) is calculated using the 2012 CKD-EPI cystatin C equation. This equation utilizes serum cystatin C, sex, and age as parameters. The cystatin C assay has traceable calibration to the [facility] reference material. Refer to KDIGO guidelines for clinical interpretation. In patients with unstable renal function, e.g. those with acute kidney injury, the eGFR may not accurately reflect actual GFR. Performed By: #### C YSTC, 86996-5 ####[facility] LABCLIA [id number] [facility] [id number] [address] [place] Laboratory - Chemistry and C hemistry - challengeon 06-07-2024 Protein/Creatinin e (U) [Mass ratio] mg/mg NINF - 0.15 mg/mg [facility] Comment on above: Adult Proteinuria Ca [...] Interpretation and review of laboratory results Abnormal [facility] Prot/Creat Uron 06-07-2024 Protein/Creatinin e (U) [Mass ratio] mg/g Normal <0.15 [facility] Comment on above: Order Comment: Speci men Type: URINE SPECIMENOrdering Facility: [facility] Address: [address] [place] [address] Result Comment: Adul t Proteinuria Categories: <0.15 mg/mg is considered normal to mildly increased 0.15 - 0.50 mg/mg is considered moderately increased >0.50 mg/mg is considered severely increased KDIGO. (2013). KDIGO 2012 Clinical Practice Guideline for the Evaluation and Management of Chronic Kidney Disease. Official Journal of the International Society of Nephrology, 3(1), 1-150. Performed By: #### 2 890-2, [id number] ####[facility] LABCLIA [id number] [place] [address] [place] Protein/Creatinine (U) [Mass ratio]on 06-07-2024 Creatinine (U) [Mass/Vol] 36.7 mg/dL 20.0 - 300.0 mg/dL [facility] Interpretation and review of laboratory results Normal [facility] Protein (U) [Mass/Vol] mg/dL 0 - 20 mg/dL [facility] Creatinine (U) [Mass/Vol] 36.7 mg/dL Normal 20.0-300.0 [facility] Comment on above: Order Comment: Speci men Type: URINE SPECIMENOrdering Facility: [facility] Address: [address] [place] [address] Performed By: #### 2 890-2, [id number] ####[facility] LABCLIA [id number] [address] [place] Protein (U) [Mass/Vol] mg/dL Normal 0-20 [facility] Comment on above: Order Comment: Speci men Type: URINE SPECIMENOrdering Facility: [facility] Address: [address] [place] [address] Performed By: #### 2 890-2, [id number] ####[facility] LABCLIA [id number] [place] [address] [place] Renal function 2000 panelon 06-07-2024 Albumin [Mass/Vol] 4.6 g/dL 3.9 - 4.9 g/dL [facility] Anion gap [Moles/Vol] 12 mmol/L 8 - 15 mmol/L [facility] Calcium [Mass/Vol] 10.2 mg/dL 8.5 - 10.2 mg/dL [facility] Chloride [Moles/Vol] 104 mmol/L 98 - 107 mmol/L [facility] CO2 [Moles/Vol] 27 mmol/L 22 - 30 mmol/L [facility] Creatinine [Mass/Vol] 1.53 mg/dL High 0.73 - 1.22 mg/dL [facility] GFR/1.73 sq M.predicted among non-blacks MDRD (S/P/Bld) [Vol rate/Area] 50 mL/min/{1.73_m2} Low - PINF [facility] Comment on above: Estimated Glomerular Filtration [...] [Mass/Vol] 94 mg/dL 74 - 99 mg/dL [facility] Comment on above: The [place] Diabete s Association (ADA) provides guidance for [...] Standards of Medical Care in Diabetes 2016, [place] Diabetes Association. Diabetes Care. 2016.39(Suppl 1). Phosphate [Mass/Vol] 2.9 mg/dL 2.7 - 4.8 mg/dL [facility] Potassium [Moles/Vol] 4.4 mmol/L 3.7 - 5.1 mmol/L [facility] Sodium [Moles/Vol] 143 mmol/L 136 - 144 mmol/L [facility] Urea nitrogen [Mass/Vol] 25 mg/dL High 9 - 24 mg/dL [facility] Albumin [Mass/Vol] 4.6 g/dL Normal 3.9-4.9 [facility] Comment on above: Order Comment: Speci men Type: BLOOD SPECIMENOrdering Facility: [facility] Address: [address] [place] [address] Performed By: #### C [facility], 49830-6 ####[facility] LABCLIA [id number] [place] [address] [place] Anion gap [Moles/Vol] 12 mmol/L Normal 8-15 [facility] Comment on above: Order Comment: Speci men Type: BLOOD SPECIMENOrdering Facility: [facility] Address: [address] [place] [address] Performed By: #### Darius CARR, 80427-1 ####[facility] LABCLIA [id number] [place] [address] [place] Calcium [Mass/Vol] 10.2 mg/dL Normal 8.5-10.2 [facility] Comment on above: Order Comment: Speci men Type: BLOOD SPECIMENOrdering Facility: [facility] Address: [address] [place] [address] Performed By: #### Darius CARR, 88738-7 ####[facility] LABCLIA [id number] [place] [address] [place] Chloride [Moles/Vol] 104 mmol/L Normal 98-107 [facility] Comment on above: Order Comment: Speci men Type: BLOOD SPECIMENOrdering Facility: [facility] Address: [address] [place] [address] Performed By: #### Darius CARR, 58451-4 ####[facility] LABCLIA [id number] [place] [address] [place] CO2 [Moles/Vol] 27 mmol/L Normal 22-30 [facility] Comment on above: Order Comment: Speci men Type: BLOOD SPECIMENOrdering Facility: [facility] Address: [address] [place] [address] Performed By: #### Darius CARR, 37409-1 ####[facility] LABCLIA [id number] [place] [address] [place] Creatinine [Mass/Vol] 1.53 mg/dL High 0.73-1.22 [facility] Comment on above: Order Comment: Speci men Type: BLOOD SPECIMENOrdering Facility: [facility] Address: [address] [place] [address] Performed By: #### C YSTC, 89063-2 ####[facility] LABCLIA [id number] [place] [address] [place] Creatinine and Glomerular filtration rate.predicted panel (S/P/Bld) 50 mL/min/1.73m??? Low >=60 [facility] Comment on above: Order Comment: Tianna yuan Type: BLOOD SPECIMENOrdering Facility: [facility] Address: [address] [place] [address] Result Comment: Alexandra mated Glomerular Filtration Rate [...] reflect actual GFR. Performed By: #### C YSTC, 78833-7 ####[facility] LABCLIA [id number] [place] [address] [place] Glucose [Mass/Vol] 94 mg/dL Normal 74-99 [facility] Comment on above: Order Comment: Tianna yuan Type: BLOOD SPECIMENOrdering Facility: [facility] Address: [address] [place] [address] Result Comment: The [place] Diabetes Association (ADA) provides guidance for cutoff [...] Standards of Medical Care in Diabetes 2016, [place] Diabetes Association. Diabetes Care. 2016.39(Suppl 1). Performed By: #### Darius CARR, 83188-0 ####[facility] LABCLIA [id number] [place] [address] [place] Phosphate [Mass/Vol] 2.9 mg/dL Normal 2.7-4.8 [facility] Comment on above: Order Comment: Speci men Type: BLOOD SPECIMENOrdering Facility: [facility] Address: [address] [place] [address] Performed By: #### Darius CARR, 20697-9 ####[facility] LABCLIA [id number] [place] [address] [place] Potassium [Moles/Vol] 4.4 mmol/L Normal 3.7-5.1 [facility] Comment on above: Order Comment: Speci men Type: BLOOD SPECIMENOrdering Facility: [facility] Address: [address] [place] [address] Performed By: #### Darius CARR, 67087-8 ####[facility] LABIA [id number] [place] [address] [place] Sodium [Moles/Vol] 143 mmol/L Normal 136-144 [facility] Comment on above: Order Comment: Speci men Type: BLOOD SPECIMENOrdering Facility: [facility] Address: [address] [place] [address] Performed By: #### Darius CARR, 82399-7 ####[facility] LABCLIA [id number] [place] [address] [place] Urea nitrogen [Mass/Vol] 25 mg/dL High 9-24 [facility] Comment on above: Order Comment: Speci men Type: BLOOD SPECIMENOrdering Facility: [facility] Address: [address] [place] [address] Performed By: #### Darius CARR, 51126-2 ####[facility] LABCLIA [id number] [place] [address] [place] URINALYSIS, REFLEX MICROSCOP ICon 06-07-2024 Bilirubin Ql (U) Negative Negative [facility] Clarity (Unsp spec) Clear Clear [facility] Color (U) Yellow Yellow [facility] Glucose Test strip (U) [Mass/Vol] Negative Negative [facility] Hemoglobin Ql (U) Negative Negative [facility] Interpretation and review of laboratory results Abnormal [facility] Ketones Ql (U) Negative Negative [facility] Leukocyte esterase Test strip Ql (U) Trace Abnormal Negative [facility] Nitrite Ql (U) Negative Negative [facility] pH (U) 6.5 [pH] NINF - 8.5 [facility] Protein (U) [Mass/Vol] Negative Negative [facility] Specific gravity (U) [Rel density] 1.008 1.005 - 1.030 [facility] Urobilinogen Ql (U) 0.2 EU/dL 0.2-1.0 EU/dL [facility] This test was amber kelley and its performance characteristics determined by [facility] [place] ([facility]). It has not been cleared or approved by the FDA. [facility] is regulated under CLIA as qualified to perform high-complexity testing. This test is used for clinical purposes. It should not be regarded as investigational or for research. [facility] Bilirubin Ql (U) Negative Normal Negative [facility] Comment on above: Order Comment: Speci men Type: URINE SPECIMENOrdering Facility: [facility] Address: [address] [place] [address] Performed By: #### 2 890-2, [id number] ####[facility] LABCLIA [id number] [place] [address] [place] Clarity (Unsp spec) Clear Normal Clear [facility] Comment on above: Order Comment: Speci men Type: URINE SPECIMENOrdering Facility: [facility] Address: [address] [place] [address] Performed By: #### 2 890-2, [id number] ####[facility] LABCLIA [id number] [place] [address] [place] Color (U) Yellow Normal Yellow [facility] Comment on above: Order Comment: Speci men Type: URINE SPECIMENOrdering Facility: [facility] Address: [address] [place], [place] [address] Performed By: #### 2 890-2, [id number] ####[facility] LABCLIA [id number] [place] [address] [place] Glucose Test strip (U) [Mass/Vol] Negative Normal Negative [facility] Comment on above: Order Comment: Speci men Type: URINE SPECIMENOrdering Facility: [facility] Address: [address] [place] [address] Performed By: #### 2 890-2, [id number] ####[facility] LABCLIA [id number] [place] [address] [place] Hemoglobin Ql (U) Negative Normal Negative [facility] Comment on above: Order Comment: Speci men Type: URINE SPECIMENOrdering Facility: [facility] Address: [address] [place], [place] [address] Performed By: #### 2 890-2, [id number] ####[facility] LABCLIA [id number] [place] [address] [place] Ketones Ql (U) Negative Normal Negative [facility] Comment on above: Order Comment: Speci men Type: URINE SPECIMENOrdering Facility: [facility] Address: [address] [place], [place] [address] Performed By: #### 2 890-2, [id number] ####[facility] LABCLIA [id number] [place] [address] [place] Leukocyte esterase Test strip Ql (U) Trace Abnormal Negative [facility] Comment on above: Order Comment: Speci men Type: URINE SPECIMENOrdering Facility: [facility] Address: [address] [place] [address] Performed By: #### 2 890-2, [id number] ####[facility] LABCLIA [id number] [place] [address] [place] Nitrite Ql (U) Negative Normal Negative [facility] Comment on above: Order Comment: Speci men Type: URINE SPECIMENOrdering Facility: [facility] Address: [address] [place] [address] Performed By: #### 2 890-2, [id number] ####[facility] LABCLIA [id number] [place] [address] [place] pH (U) 6.5 [pH] Normal <8.5 [facility] Comment on above: Order Comment: Speci men Type: URINE SPECIMENOrdering Facility: [facility] Address: [address] [place] [address] Performed By: #### 2 890-2, [id number] ####[facility] LABCLIA [id number] [place] [address] [place] Protein (U) [Mass/Vol] Negative Normal Negative [facility] Comment on above: Order Comment: Speci men Type: URINE SPECIMENOrdering Facility: [facility] Address: [address] [place] [address] Performed By: #### 2 890-2, [id number] ####[facility] LABCLIA [id number] [place] [address] [place] Specific gravity (U) [Rel density] 1.008 Normal 1.005-1.030 [facility] Comment on above: Order Comment: Speci men Type: URINE SPECIMENOrdering Facility: [facility] Address: [address] [place] [address] Performed By: #### 2 890-2, [id number] ####[facility] LABCLIA [id number] [place] [address] [place] Urobilinogen Ql (U) 0.2 EU/dL Normal 0.2-1.0 EU/dL [facility] Comment on above: Order Comment: Speci men Type: URINE SPECIMENOrdering Facility: [facility] Address: [address] [place] [address] Performed By: #### 2 890-2, [id number] ####[facility] LABCLIA [id number] [facility] [place] [id number] OF [facility] ALLIED HEALTHon 04-25-2024 ALLIED HEALTH HNO ID: [id number] Author: CHUNG CONTRERAS MRI Tech Service: Radiology Author Type: Bell Valet Type: Allied Health Filed: 04/25/2024 08:40 Note [...] PATIENT PRESENTS WITH AN IMPLANTABLE OR ATTACHED MAIL PROCESSOR: No ALLERGIES: Reviewed and unchanged CONTRAST ALLERGY: NO. EXAM: MRI - CONTRAST TYPE: GROUP II PERIPHERAL IV DATA: Ambulatory: A peripheral IV was started in the Right antecubital site with a Angio cath: 24 gauge. RADIOLOGY DEPARTMENT: MR; Exam(s) Completed: Body: Renal SIGNATURE: Chung Rider MRI Tech PATIENT NAME: Ashley Ledesma DATE: April 25, 2024 TIME: 8:39 AM [facility] CT CHEST WO IVCONon 04-25-20 CT CHEST WO IVCON * * *Final Report* * * DATE OF EXAM: Apr 25 2024 8:00AM [facility] 0541 - CT CHEST WO IVCON / [...] exophytically from the body of the pancreas. Fireman Helper (topogram) images: No additional findings. IMPRESSION: 1. Stable scattered small pulmonary nodules measuring up to 4 mm. Recommend follow-up as warranted by patient's history of renal cell carcinoma. 2. No thoracic lymphadenopathy. Lehr Tender: SHASHI Transcribe Date/Time: Apr 25 2024 9:22A Dictated by : ANDRÉS HOOKS MD This examination was interpreted and the report reviewed and electronically signed by: ANDRÉS HOOKS MD on Apr 25 2024 9:30AM EST [id number] Normal [facility] CT Chest WO contraston 04-25 IMPRESSION: 1. Stable scattered small pulmonary nodules measuring up to 4 mm. Recommend follow-up as warranted by patient's history of renal cell carcinoma. 2. No thoracic lymphadenopathy. Lehr Tender: SHASHI Transcribe Date/Time: Apr 25 2024 9:22A Dictated by : ANDRÉS HOOKS MD This examination was interpreted and the report reviewed and electronically signed by: ANDRÉS HOOKS MD on Apr 25 2024 9:30AM [facility] RAD[facility] * * *Final Report* * * DATE OF EXAM: Apr 25 2024 8:00AM [facility] 0541 - CT CHEST WO IVCON / [...] exophytically from the body of the pancreas. Fireman Helper (topogram) images: No additional findings. [facility] Provider, [facility] - 04/25/2024 * * *Final Report* * * DATE OF EXAM: Apr 25 2024 8:00AM [facility] 0541 - CT CHEST WO IVCON / [...] exophytically from the body of the pancreas. Fireman Helper (topogram) images: No additional findings. IMPRESSION IMPRESSION: 1. Stable scattered small pulmonary nodules measuring up to 4 mm. Recommend follow-up as warranted by patient's history of renal cell carcinoma. 2. No thoracic lymphadenopathy. Lehr Tender: [facility] Transcribe Date/Time: Apr 25 2024 9:22A Dictated by : ANDRÉS HOOKS MD This examination was interpreted and the report reviewed and electronically signed by: ANDRÉS HOOKS MD on Apr 25 2024 9:30AM [facility] Radiology Study observation (narrative) [facility] CT Chest WO contrastOrdered By: Ccf Provider on 04-25-2024 [facility] MR Abdomen WO and W contrast Karen 04-25-2024 IMPRESSION: Status post LEFT nephrectomy with expected postoperative changes. No definite residual/recurrent disease or abdominal metastasis. 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 Lehr Tender: [facility] Transcribe Date/Time: Apr 25 2024 1:16P Dictated by : RENATA NICOLE MD This examination was interpreted and the report reviewed and electronically signed by: MARIA ELENA MALLOY MD on Apr 25 2024 3:47PM [facility] * * *Final Report* * * DATE OF EXAM: Apr 25 2024 12:18PM [facility] - MRI ABDOMEN WO/W IVCON [...] included: axial precontrast T1 weighted in- and qkf-ee-lbgyo, axial and coronal HASTE, axial DWI with [...] chest: Unremarkable. Localizer images: No additional findings. [facility] Provider, [facility] - 04/25/2024 * * *Final Report* * * DATE OF EXAM: Apr 25 2024 12:18PM [facility] - MRI ABDOMEN WO/W IVCON [...] included: axial precontrast T1 weighted in- and [id number]-hb-kwttq, axial and coronal HASTE, axial DWI with [...] branch IPMNs and overall unchanged from 01/04/2024. [facility] Transcribe Date/Time: Apr 25 2024 1:16P Dictated by : RENATA NICOLE MD This examination was interpreted and the report reviewed and electronically signed by: MARIA ELENA MALLOY MD on Apr 25 2024 3:47PM EST [facility] Radiology Study observation (narrative) [facility] MR Abdomen WO and W contrast IVOrdered By: Ccf Provider on 04-25-2024 [facility] MRI ABDOMEN WO/W IVCONon MRI ABDOMEN WO/W IVCON * * *Final Report* * * DATE OF EXAM: Apr 25 2024 12:18PM [facility] - MRI ABDOMEN WO/W IVCON [...] included: axial precontrast T1 weighted in- and vmr-xq-lgtxj, axial and coronal HASTE, axial DWI with [...] branch IPMNs and overall unchanged from 01/04/2024. Lehr Tender: SHASHI Transcribe Date/Time: Apr 25 2024 1:16P Dictated by : RENATA NICOLE MD This examination was interpreted and the report reviewed and electronically signed by: MARIA ELENA MALLOY MD on Apr 25 2024 3:47PM EST [id number] [facility] CBC panel Auto (Bld)on 03-24 Erythrocyte distribution width (RBC) [Ratio] 15.2 % High 11.5 - 15.0 % [facility] Hematocrit (Bld) [Volume fraction] 39.8 % 39.0 - 51.0 % [facility] Hemoglobin (Bld) [Mass/Vol] 12.6 g/dL Low 13.0 - 17.0 g/dL [facility] Interpretation and review of laboratory results Abnormal [facility] MCH (RBC) [Entitic mass] 28.2 pg 26.0 - 34.0 pg [facility] MCHC (RBC) [Mass/Vol] 31.7 g/dL 30.5 - 36.0 g/dL [facility] MCV (RBC) [Entitic vol] 89.0 fL 80.0 - 100.0 fL [facility] Nucleated RBC (Bld) [#/Vol] NINF [facility] Platelet mean volume (Bld) [Entitic vol] 13.6 fL High 9.0 - 12.7 fL [facility] Platelets (Bld) [#/Vol] 148 10*3/uL Low [facility] Comment on above: Results checked and verified.No clot detected. RBC (Bld) [#/Vol] 4.47 10*6/uL 4.20 - 6.0 0 m/uL [facility] WBC (Bld) [#/Vol] 5.53 10*3/uL [facility] Erythrocyte distribution width (RBC) [Ratio] 15.2 % High 11.5-15.0 [facility] Comment on above: Order Comment: Speci men Type: BLOOD SPECIMENOrdering Facility: [facility] Address: [address] [place] [address] Performed By: #### 5 8410-2 ####[facility] LABCLIA [id number] [place] [address] [place] Hematocrit (Bld) [Volume fraction] 39.8 % Normal 39.0-51.0 [facility] Comment on above: Order Comment: Speci men Type: BLOOD SPECIMENOrdering Facility: [facility] Address: [address] [place] [address] Performed By: #### 5 8410-2 ####[facility] LABIA [id number] [place] [address] [place] Hemoglobin (Bld) [Mass/Vol] 12.6 g/dL Low 13.0-17.0 [facility] Comment on above: Order Comment: Speci men Type: BLOOD SPECIMENOrdering Facility: [facility] Address: [address] [place] [address] Performed By: #### 5 8410-2 ####[facility] LABIA [id number] [place] [address] [place] MCH (RBC) [Entitic mass] 28.2 pg Normal 26.0-34.0 [facility] Comment on above: Order Comment: Speci men Type: BLOOD SPECIMENOrdering Facility: [facility] Address: [address] [place] [address] Performed By: #### 5 8410-2 ####[facility] LABIA [id number] [place] [address] [place] MCHC (RBC) [Mass/Vol] 31.7 g/dL Normal 30.5-36.0 [facility] Comment on above: Order Comment: Speci men Type: BLOOD SPECIMENOrdering Facility: [facility] Address: [address] [place] [address] Performed By: #### 5 8410-2 ####[facility] LABIA [id number] [place] [address] [place] MCV (RBC) [Entitic vol] 89.0 fL Normal 80.0-100.0 [facility] Comment on above: Order Comment: Speci men Type: BLOOD SPECIMENOrdering Facility: [facility] Address: [address] [place] [address] Performed By: #### 5 8410-2 ####[facility] LABIA [id number] [place] [address] [place] Nucleated RBC (Bld) [#/Vol] 10*3/uL Normal <0.01 [facility] Comment on above: Order Comment: Speci men Type: BLOOD SPECIMENOrdering Facility: [facility] Address: [address] [place] [address] Performed By: #### 5 8410-2 ####[facility] LABCLIA [id number] [place] [address] [place] Platelet mean volume (Bld) [Entitic vol] 13.6 fL High 9.0-12.7 [facility] Comment on above: Order Comment: Speci men Type: BLOOD SPECIMENOrdering Facility: [facility] Address: [address] [place] [address] Performed By: #### 5 8410-2 ####[facility] LABIA [id number] [place] [address] [place] Platelets (Bld) [#/Vol] 148 10*3/uL Low 150-400 [facility] Comment on above: Order Comment: Speci men Type: BLOOD SPECIMENOrdering Facility: [facility] Address: [address] [place] [address] Result Comment: Resu lts checked and verified.No clot detected. Performed By: #### 5 8410-2 ####[facility] LABIA [id number] [place] [address] [place] RBC (Bld) [#/Vol] 4.47 10*6/uL Normal 4.20-6.00 [facility] Comment on above: Order Comment: Speci men Type: BLOOD SPECIMENOrdering Facility: [facility] Address: [address] [place] [address] Performed By: #### 5 8410-2 ####[facility] LABCLIA [id number] [place] [address] [place] WBC (Bld) [#/Vol] 5.53 10*3/uL Normal 3.70-11.00 [facility] Comment on above: Order Comment: Speci men Type: BLOOD SPECIMENOrdering Facility: [facility] Address: [address] [place] [address] Performed By: #### 5 8410-2 ####[facility] LABCLIA [id number] [id number] [address] [place] CNOVon 03-24-2024 CNOV Office Visit (MELISSAMMAristides ) ASHLEY LEDESMA ([id number]) 1960 M Date Time Provider Department 03/24/24 8:20 AM JAYNE SILVEIRA During your visit today, we recorded the following information about you: Temperature Pulse Blood pressure Weight 97.7 degrees 67/minute 156/81 83.6 kg Height 1.778 m Jayne Silveira MD 04/11/2024 1:05 PM Addendum [facility] NEPHROLOGY AND HYPERTENSION [facility] SERVICE DATE: [...] 03/24/24 10:08 (more content not included)... Normal [facility] CYSTATIN Con 03-24-2024 Cystatin C [Mass/Vol] 1.25 mg/L High 0.61 - 0.95 mg/L [facility] Cystatin C eGFR 57 Low - PINF [facility] Comment on above: Estimated Glomerular Filtration Rate (eGFR) is calculated using the 2012 CKD-EPI cystatin C equation. This equation utilizes serum cystatin C, sex, and age as parameters. The cystatin C assay has traceable calibration to the [facility]-DA471/IFCC reference material. Refer to KDIGO guidelines for clinical interpretation. In patients with unstable renal function, e.g. those with acute kidney injury, the eGFR may not accurately reflect actual GFR. Interpretation and review of laboratory results Abnormal [facility] Cystatin C [Mass/Vol] 1.25 mg/L High 0.61-0.95 [facility] Comment on above: Order Comment: Speci men Type: BLOOD SPECIMENOrdering Facility: [facility] Address: [address] [place] [address] Performed By: #### 2 777-1, CYST, 63511-7, 3083-11 ####[facility] LABCLIA [id number] [place] [address] [place] CYSTATIN C EGFR 57 mL/min/1.73m??? Low >=60 C [facility] Comment on above: Order Comment: Speci men Type: BLOOD SPECIMENOrdering Facility: [facility] Address: [address] [place] [address] Result Comment: Alexandra mated Glomerular Filtration Rate (eGFR) is calculated using the 2012 CKD-EPI cystatin C equation. This equation utilizes serum cystatin C, sex, and age as parameters. The cystatin C assay has traceable calibration to the [facility]-DA471/IFCC reference material. Refer to KDIGO guidelines for clinical interpretation. In patients with unstable renal function, e.g. those with acute kidney injury, the eGFR may not accurately reflect actual GFR. Performed By: #### 2 777-1, CYSTC, , 3083-11 ####[facility] LABCLIA [id number] [address] [address] [place] Comprehensive metabolic 2000 panelon 03-24-2024 Albumin [Mass/Vol] 4.7 g/dL Normal 3.9-4.9 [facility] Comment on above: Order Comment: Speci men Type: BLOOD SPECIMENOrdering Facility: [facility] Address: [address] [place] [address] Performed By: #### 2 777-1, CYSTC, , 3083-11 ####[facility] LABIA [id number] [place] [address] [place] ALP [Catalytic activity/Vol] 86 U/L Normal 38-113 [facility] Comment on above: Order Comment: Speci men Type: BLOOD SPECIMENOrdering Facility: [facility] Address: [address] [place] [address] Performed By: #### 2 777-1, CYSTC, , 3083-11 ####[facility] LABIA [id number] [place] [address] [place] ALT [Catalytic activity/Vol] 10 U/L Normal 10-54 [facility] Comment on above: Order Comment: Speci men Type: BLOOD SPECIMENOrdering Facility: [facility] Address: [address] [place] [address] Performed By: #### 2 777-1, CYSTC, , 3083-11 ####[facility] LABIA [id number] [place] [id number] [place] Anion gap [Moles/Vol] 12 mmol/L Normal 9-18 [facility] Comment on above: Order Comment: Speci men Type: BLOOD SPECIMENOrdering Facility: [facility] Address: [address] [place] [address] Performed By: #### 2 777-1, CYSTC, , 3083- ####[facility] LABCLIA [id number] [address] [address] [place] AST [Catalytic activity/Vol] 18 U/L Normal 14-40 [facility] Comment on above: Order Comment: Speci men Type: BLOOD SPECIMENOrdering Facility: [facility] Address: [address] [place] [address] Performed By: #### 2 777-1, CYSTC, , 3083-11 ####[facility] LABCLIA [id number] [address] [address] [place] Bilirubin [Mass/Vol] 1.1 mg/dL Normal 0.2-1.3 [facility] Comment on above: Order Comment: Speci men Type: BLOOD SPECIMENOrdering Facility: [facility] Address: [address] [place] [address] Performed By: #### 2 777-1, CYSTC, , 3083-11 ####[facility] LABCLIA [id number] [place] [address] [place] Calcium [Mass/Vol] 10.6 mg/dL High 8.5-10.2 [facility] Comment on above: Order Comment: Speci men Type: BLOOD SPECIMENOrdering Facility: [facility] Address: [address] [place] [address] Performed By: #### 2 777-1, CYSTC, , 3083-11 ####[facility] LABCLIA [id number] [address] [address] [place] Chloride [Moles/Vol] 104 mmol/L Normal 97-105 [facility] Comment on above: Order Comment: Speci men Type: BLOOD SPECIMENOrdering Facility: [facility] Address: [address] [place] [address] Performed By: #### 2 777-1, CYSTC, , 3083-11 ####[facility] LABCLIA [id number] [place] [address] [place] CO2 [Moles/Vol] 27 mmol/L Normal 22-30 [facility] Comment on above: Order Comment: Speci men Type: BLOOD SPECIMENOrdering Facility: [facility] Address: [address] [place] [address] Performed By: #### 2 777-1, CYSTDarius, , 3083-11 ####[facility] LABIA [id number] [place] [address] [place] Creatinine [Mass/Vol] 1.63 mg/dL High 0.73-1.22 [facility] Comment on above: Order Comment: Speci men Type: BLOOD SPECIMENOrdering Facility: [facility] Address: [address] [place] [address] Performed By: #### 2 777-1, CYSTDarius, , 3083-11 ####[facility] [id number] [place] [address] [place] Creatinine and Glomerular filtration rate.predicted panel (S/P/Bld) 47 mL/min/1.73m??? Low >=60 [facility] Comment on above: Order Comment: Carlottai lissy Type: BLOOD SPECIMENOrdering Facility: [facility] Address: [address] [place] [address] Result Comment: Alexandra mated Glomerular Filtration Rate [...] reflect actual GFR. Performed By: #### 2 777-1, CYSTC, , 3083-11 ####[facility] LABIA [id number] [place] [id number] [place] Glucose [Mass/Vol] 112 mg/dL High 74-99 [facility] Comment on above: Order Comment: Speci men Type: BLOOD SPECIMENOrdering Facility: [facility] Address: [address] [place] [address] Result Comment: The [place] Diabetes Association (ADA) provides guidance for cutoff [...] Standards of Medical Care in Diabetes 2016, [place] [employer]. Diabetes Care. 2016.39(Suppl 1). Performed By: #### 2 777-1, CYSTC, 01077-1, 3083- ####[facility] LABCLIA [id number] [place] [address] [place] Potassium [Moles/Vol] 4.7 mmol/L Normal 3.7-5.1 [facility] Comment on above: Order Comment: Tianna yuan Type: BLOOD SPECIMENOrdering Facility: [facility] Address: [address] [place] [address] Performed By: #### 2 777-1, CYSTC, , 3083-11 ####[facility] LABCLIA [id number] [place] [address] [place] Protein [Mass/Vol] 7.0 g/dL Normal 6.3-8.0 [facility] Comment on above: Order Comment: Speci men Type: BLOOD SPECIMENOrdering Facility: [facility] Address: [address] [place] [address] Performed By: #### 2 777-1, CYSTC, 09116-6, 3083-11 ####[facility] LABCLIA [id number] [place] [address] [place] Sodium [Moles/Vol] 143 mmol/L Normal 136-144 [facility] Comment on above: Order Comment: Speci men Type: BLOOD SPECIMENOrdering Facility: [facility] Address: [address] [place] [address] Performed By: #### 2 777-1, CYSTC, 16422-8, 3083-11 ####[facility] LABCLIA [id number] [place] [address] [place] Urea nitrogen [Mass/Vol] 22 mg/dL Normal 9-24 [facility] Comment on above: Order Comment: Speci men Type: BLOOD SPECIMENOrdering Facility: [facility] Address: [address] [place] [address] Performed By: #### 2 777-1, CYSTC, , 3083-11 ####[facility] LABCLIA [id number] [place] [address] [place] No Panel Informationon 03-24 [facility] PROTEIN / CREATININE RATIOon 03-24-2024 Protein/Creatinin e (U) [Mass ratio] mg/mg NINF - 0.15 mg/mg [facility] Comment on above: Adult Proteinuria Ca [...] 03-24 Phosphate [Mass/Vol] 3.6 mg/dL Normal 2.7-4.8 [facility] Comment on above: Order Comment: Speci men Type: BLOOD SPECIMENOrdering Facility: [facility] Address: [address] [place] [address] Performed By: #### 2 777-1, CYSTC, , 3083-11 ####[facility] LABIA [id number] [place] [address] [place] Prot/Creat Uron 03-24-2024 Protein/Creatinin e (U) [Mass ratio] mg/g Normal <0.15 [facility] Comment on above: Order Comment: Speci men Type: URINE SPECIMENOrdering Facility: [facility] Address: [address] [place] [address] Result Comment: Adul t Proteinuria Categories: <0.15 mg/mg is considered normal to mildly increased 0.15 - 0.50 mg/mg is considered moderately increased >0.50 mg/mg is considered severely increased KDIGO. (2013). KDIGO 2012 Clinical Practice Guideline for the Evaluation and Management of Chronic Kidney Disease. Official Journal of the International Society of Nephrology, 3(1), 1-150. Performed By: #### 2 890-2 ####[facility] [id number] [place] [address] [place] Protein/Creatinine (U) [Mass ratio]on 03-24-2024 Creatinine (U) [Mass/Vol] 41.6 mg/dL 20.0 - 300.0 mg/dL [facility] Interpretation and review of laboratory results Normal [facility] Protein (U) [Mass/Vol] mg/dL 0 - 20 mg/dL [facility] Creatinine (U) [Mass/Vol] 41.6 mg/dL Normal 20.0-300.0 [facility] Comment on above: Order Comment: Speci men Type: URINE SPECIMENOrdering Facility: [facility] Address: [address] [place] [address] Performed By: #### 2 890-2 ####[facility] [id number] [place] [address] [place] Protein (U) [Mass/Vol] mg/dL Normal 0-20 [facility] Comment on above: Order Comment: Speci men Type: URINE SPECIMENOrdering Facility: [facility] Address: [address] [place] [address] Performed By: #### 2 890-2 ####[facility] LABCLIA [id number] [place] [address] [place] URIC ACIDon 03-24-2024 Urate [Mass/Vol] 4.8 mg/dL 4.0 - 8.1 mg/dL [facility] URINALYSIS, REFLEX MICROSCOP ICon 03-24-2024 Bilirubin Ql (U) Negative Negative [facility] Clarity (Unsp spec) Clear Clear [facility] Color (U) Colorless Yellow [facility] Glucose Test strip (U) [Mass/Vol] Negative Trace, Negative [facility] Hemoglobin Ql (U) Negative Negative, Trace [facility] Interpretation and review of laboratory results Normal [facility] Ketones Ql (U) Negative Negative, Trace [facility] Leukocyte esterase Test strip Ql (U) Negative Negative, 25 [place]/uL [facility] Nitrite Ql (U) Negative Negative [facility] pH (U) 7.0 [pH] 5.0 - 8.0 [facility] Protein (U) [Mass/Vol] Negative Trace, Negative [facility] Specific gravity (U) [Rel density] 1.006 1.005 - 1.030 [facility] Urobilinogen Ql (U) Normal Normal [facility] Bilirubin Ql (U) Negative Normal Negative [facility] Comment on above: Order Comment: Speci men Type: URINE SPECIMENOrdering Facility: [facility] Address: [address] [place] [address] Performed By: #### L [id number] ####[facility] LABCLIA [id number] [place] [address] [place] Clarity (Unsp spec) Clear Normal Clear [facility] Comment on above: Order Comment: Speci men Type: URINE SPECIMENOrdering Facility: [facility] Address: [address] [place] [address] Performed By: #### L [id number] ####[facility] LABCLIA [id number] [place] [address] [place] Color (U) Colorless Normal Yellow [facility] Comment on above: Order Comment: Speci men Type: URINE SPECIMENOrdering Facility: [facility] Address: [address] [place] [address] Performed By: #### L [id number] ####[facility] LABCLIA [id number] [place] [address] [place] Glucose Test strip (U) [Mass/Vol] Negative Normal Trace, Negative [facility] Comment on above: Order Comment: Speci men Type: URINE SPECIMENOrdering Facility: [facility] Address: [address] [place] [address] Performed By: #### L [id number] ####[facility] LABCLIA [id number] [place] [address] [place] Hemoglobin Ql (U) Negative Normal Negative, Trace [facility] Comment on above: Order Comment: Speci men Type: URINE SPECIMENOrdering Facility: [facility] Address: [address] [place] [address] Performed By: #### L [id number] ####[facility] LABCLIA [id number] [place] [address] [place] Ketones Ql (U) Negative Normal Negative, Trace [facility] Comment on above: Order Comment: Speci men Type: URINE SPECIMENOrdering Facility: [facility] Address: [address] [place] [address] Performed By: #### L [id number] ####[facility] LABCLIA [id number] [place] [address] [place] Leukocyte esterase Test strip Ql (U) Negative Normal Negative, 25 [place]/uL [facility] Comment on above: Order Comment: Speci men Type: URINE SPECIMENOrdering Facility: [facility] Address: [address] [place] [address] Performed By: #### L [id number] ####[facility] LABCLIA [id number] [place] [address] [place] Nitrite Ql (U) Negative Normal Negative [facility] Comment on above: Order Comment: Speci men Type: URINE SPECIMENOrdering Facility: [facility] Address: [address] [place] [address] Performed By: #### L [id number] ####[facility] LABCLIA [id number] [place] [address] [place] pH (U) 7.0 [pH] Normal 5.0-8.0 [facility] Comment on above: Order Comment: Speci men Type: URINE SPECIMENOrdering Facility: [facility] Address: [address] [place] [address] Performed By: #### L [id number] ####[facility] LABCLIA [id number] [place] [address] [place] Protein (U) [Mass/Vol] Negative Normal Trace, Negative [facility] Comment on above: Order Comment: Speci men Type: URINE SPECIMENOrdering Facility: [facility] Address: [address] [place] [address] Performed By: #### L [id number] ####[facility] LABIA [id number] [place] [address] [place] Specific gravity (U) [Rel density] 1.006 Normal 1.005-1.030 [facility] Comment on above: Order Comment: Speci men Type: URINE SPECIMENOrdering Facility: [facility] Address: [address] [place] [address] Performed By: #### L [id number] ####[facility] LABCLIA [id number] [place] [address] [place] Urobilinogen Ql (U) Normal Normal Normal [facility] Comment on above: Order Comment: Speci men Type: URINE SPECIMENOrdering Facility: [facility] Address: [address] [place] [address] Performed By: #### L [id number] ####[facility] LABCLIA [id number] [place] [id number] [place] Urate SerPl-mCncon 4 Urate [Mass/Vol] 4.8 mg/dL Normal 4.0-8.1 [facility] Comment on above: Order Comment: Speci men Type: BLOOD SPECIMENOrdering Facility: [facility] Address: [address] [place] [address] Performed By: #### 2 777-1, CYST, 29415-3, 3084-1 ####[facility] LABCLIA [id number] [place] [address] [place] Urate [Mass/Vol]on 4 Interpretation and review of laboratory results Normal [facility] CNPNon 01-14-2024 CNPN Telephone (PODCCP) ASHLEY LEDESMA ([id number]) 1960 Date Time Provider Department 01/14/24 ADAN LAMAR PODCCP During your visit today, we recorded the following information about you: hCon Felder 01/14/2024 11:11 AM Signed PATIENT INFORMATION Record ID: [id number] Patient Name: Ashley Ledesma [facility]: [facility]: [facility] Attending: Charlotte [facility]: Urology INSTRUCTIONS SN to remind patient of appointment date, time, location All Clear All Clear SURVEY INFORMATION Medical/Nurse Tool And Die Technician: Chon Avila 1. Your discharge instructions are [...] Reason for Visit: Follow Up Phone Call [8348] Cmt: All Clear Prescriptions as of 01/14/2024 [...] Status:Closed by CHON FELDER on 01/14/24 Normal [facility] CNPNon 01-11-2024 CNPN Telephone (GLQ) ASHLEY LEDESMA ([id number]) 1960 M Date Time Provider Department 01/11/24 [...] RN, BSN Triage Nurse Department of Urology [facility] Allergies As of Date: 01/11/2024 (No Known Allergies) Date Reviewed: 01/07/2024 Reviewed by: Marilyn Menard, OBDULIA - Fully Assessed Reason for Visit: Returning [...] Status:Closed by NEELA LUNDBERG on 01/11/24 Normal [facility] Basic metabolic 2000 panelon 01-09-2024 Anion gap [Moles/Vol] 9 mmol/L Normal 9-18 [facility] Comment on above: Order Comment: Speci men Type: BLOOD SPECIMENOrdering Facility: [facility] Address: [address] [place] [address] Performed By: #### 2 4321-2 ####[facility] LABIA [id number] [place] [address] [place] Calcium [Mass/Vol] 9.7 mg/dL Normal 8.5-10.2 [facility] Comment on above: Order Comment: Speci men Type: BLOOD SPECIMENOrdering Facility: [facility] Address: [address] [place] [address] Performed By: #### 2 4321-2 ####[facility] LABCLIA [id number] [place] [address] [place] Chloride [Moles/Vol] 102 mmol/L Normal 97-105 [facility] Comment on above: Order Comment: Speci men Type: BLOOD SPECIMENOrdering Facility: [facility] Address: [address] [place] [address] Performed By: #### 2 4321-2 ####[facility] LABCLIA [id number] [place] [address] [place] CO2 [Moles/Vol] 27 mmol/L Normal 22-30 [facility] Comment on above: Order Comment: Speci men Type: BLOOD SPECIMENOrdering Facility: [facility] Address: [address] [place] [address] Performed By: #### 2 4321-2 ####[facility] LABIA [id number] [place] [address] [place] Creatinine [Mass/Vol] 1.70 mg/dL High 0.73-1.22 [facility] Comment on above: Order Comment: Speci men Type: BLOOD SPECIMENOrdering Facility: [facility] Address: [address] [place] [address] Performed By: #### 2 4321-2 ####[facility] [id number] [place] [address] [place] Creatinine and Glomerular filtration rate.predicted panel (S/P/Bld) 44 mL/min/1.73m??? Low >=60 [facility] Comment on above: Order Comment: Speci men Type: BLOOD SPECIMENOrdering Facility: [facility] Address: [address] [place] [address] Result Comment: Alexandar mated Glomerular Filtration Rate (eGFR) is calculated [...] actual GFR. Performed By: #### 2 4321-2 ####[facility] LABIA [id number] [place] [address] [place] Glucose [Mass/Vol] 135 mg/dL High 74-99 [facility] Comment on above: Order Comment: Speci men Type: BLOOD SPECIMENOrdering Facility: [facility] Address: [address] [place] [id number] Result Comment: The [place] Diabetes Association (ADA) provides guidance for cutoff [...] Standards of Medical Care in Diabetes 2016, [place] [employer]. Diabetes Care. 2016.39(Suppl 1). Performed By: #### 2 4321-2 ####[facility] LABCLIA [id number] [place] [address] [place] Potassium [Moles/Vol] 4.2 mmol/L Normal 3.7-5.1 [facility] Comment on above: Order Comment: Speci men Type: BLOOD SPECIMENOrdering Facility: [facility] Address: [address] [place] [address] Performed By: #### 2 4321-2 ####[facility] LABCLIA [id number] [place] [address] [place] Sodium [Moles/Vol] 138 mmol/L Normal 136-144 [facility] Comment on above: Order Comment: Speci men Type: BLOOD SPECIMENOrdering Facility: [facility] Address: [address] [place] [id number] Performed By: #### 2 4321-2 ####[facility] LABCLIA [id number] [place] [address] [place] Urea nitrogen [Mass/Vol] 19 mg/dL Normal 9-24 [facility] Comment on above: Order Comment: Speci men Type: BLOOD SPECIMENOrdering Facility: [facility] Address: [address] [place] [id number] Performed By: #### 2 4321-2 ####[facility] LABIA [id number] [place] [address] [place] CBC panel Auto (Bld)on 01-09 Erythrocyte distribution width (RBC) [Ratio] 14.6 % Normal 11.5-15.0 [facility] Comment on above: Order Comment: Speci men Type: BLOOD SPECIMENOrdering Facility: [facility] Address: [address] [place] [address] Performed By: #### 5 8410-2 ####[facility] LABIA [id number] [place] [address] [place] Hematocrit (Bld) [Volume fraction] 33.2 % Low 39.0-51.0 [facility] Comment on above: Order Comment: Speci men Type: BLOOD SPECIMENOrdering Facility: [facility] Address: [address] [place] [address] Performed By: #### 5 8410-2 ####[facility] [id number] [place] [address] [place] Hemoglobin (Bld) [Mass/Vol] 10.6 g/dL Low 13.0-17.0 [facility] Comment on above: Order Comment: Speci men Type: BLOOD SPECIMENOrdering Facility: [facility] Address: [address] [place] [address] Performed By: #### 5 8410-2 ####[facility] LABIA [id number] [place] [address] [place] MCH (RBC) [Entitic mass] 27.8 pg Normal 26.0-34.0 [facility] Comment on above: Order Comment: Speci men Type: BLOOD SPECIMENOrdering Facility: [facility] Address: [address] [place] [address] Performed By: #### 5 8410-2 ####[facility] LABIA [id number] [place] [address] [place] MCHC (RBC) [Mass/Vol] 31.9 g/dL Normal 30.5-36.0 [facility] Comment on above: Order Comment: Speci men Type: BLOOD SPECIMENOrdering Facility: [facility] Address: [address] [place] [address] Performed By: #### 5 8410-2 ####[facility] LABIA [id number] [place] [address] [place] MCV (RBC) [Entitic vol] 87.1 fL Normal 80.0-100.0 [facility] Comment on above: Order Comment: Speci men Type: BLOOD SPECIMENOrdering Facility: [facility] Address: [address] [place] [address] Performed By: #### 5 8410-2 ####[facility] LABCLIA [id number] [place] [address] [place] Nucleated RBC (Bld) [#/Vol] 10*3/uL Normal <0.01 [facility] Comment on above: Order Comment: Speci men Type: BLOOD SPECIMENOrdering Facility: [facility] Address: [address] [place] [address] Performed By: #### 5 8410-2 ####[facility] LABIA [id number] [place] [address] [place] Platelet mean volume (Bld) [Entitic vol] 14.1 fL High 9.0-12.7 [facility] Comment on above: Order Comment: Speci men Type: BLOOD SPECIMENOrdering Facility: [facility] Address: [address] [place] [address] Performed By: #### 5 8410-2 ####[facility] LABCLIA [id number] [place] [address] [place] Platelets (Bld) [#/Vol] 146 10*3/uL Low 150-400 [facility] Comment on above: Order Comment: Speci men Type: BLOOD SPECIMENOrdering Facility: [facility] Address: [address] [place] [address] Result Comment: Resu lts checked and verified.No clot detected. Performed By: #### 5 8410-2 ####[facility] LABCLIA [id number] [place] [address] [place] RBC (Bld) [#/Vol] 3.81 10*6/uL Low 4.20-6.00 [facility] Comment on above: Order Comment: Speci men Type: BLOOD SPECIMENOrdering Facility: [facility] Address: [address] [place] [address] Performed By: #### 5 8410-2 ####[facility] LABCLIA [id number] [place] [address] [place] WBC (Bld) [#/Vol] 7.31 10*3/uL Normal 3.70-11.00 [facility] Comment on above: Order Comment: Speci men Type: BLOOD SPECIMENOrdering Facility: [facility] Address: [address] [place] [address] Performed By: #### 5 8410-2 ####[facility] LABIA [id number] [place] [address] [place] CNDSon 01-09-2024 CNDS HNO ID: [id number] Author: CHARLOTTE LINDSEY MD Service: Urology Author Type: Physician Type: Discharge Summary Filed: 02/06/2024 07:56 Note Text: [place] [address] or (639) [facility] E N T I A L I N F O R M A T I O N ------- [facility] DOCUMENT DISCHARGE SUMMARY Patient Name: Ashley Ledesma [...] HAND ASSISTED NEPHRECTOMY (Left) on 01/06. Subsequently ELIGIBILITY SERVICES REPRESENTATIVE is required. Please contact your accounts administrator to configure this SmartLink. was transferred [...] Your Medications These medications were sent to [id number] [place] [address] - [address] [facility] - [phone] [id number] [facility] [id number] docusate sodium 100 mg capsule methocarbamol 1,000 mg tablet oxyCODONE IR 5 mg immediate release tablet Future Appointments: No future appointments. Electronically SIGNED by Licensed Independent Practitioner: Julisa Ugalde MD Normal [facility] Basic metabolic 2000 panelon 01-08-2024 Anion gap [Moles/Vol] 9 mmol/L Normal 9-18 [facility] Comment on above: Order Comment: Speci men Type: BLOOD SPECIMENOrdering Facility: [facility] Address: [address] [place] [address] Performed By: #### 2 4321-2 ####[facility] LABCLIA [id number] [place] [address] [place] Calcium [Mass/Vol] 9.7 mg/dL Normal 8.5-10.2 [facility] Comment on above: Order Comment: Speci men Type: BLOOD SPECIMENOrdering Facility: [facility] Address: [address] [place] [address] Performed By: #### 2 4321-2 ####[facility] [place] LABCLIA [id number] [place] [address] [place] Chloride [Moles/Vol] 98 mmol/L Normal 97-105 [facility] Comment on above: Order Comment: Speci men Type: BLOOD SPECIMENOrdering Facility: [facility] Address: [address] [place] [address] Performed By: #### 2 4321-2 ####[facility] LABCLIA [id number] [place] [address] [place] CO2 [Moles/Vol] 32 mmol/L High 22-30 [facility] Comment on above: Order Comment: Speci men Type: BLOOD SPECIMENOrdering Facility: [facility] Address: [address] [place] [address] Performed By: #### 2 4321-2 ####[facility] [place] LABCLIA [id number] [facility] [place] [address] [place] Creatinine [Mass/Vol] 1.77 mg/dL High 0.73-1.22 [facility] Comment on above: Order Comment: Speci men Type: BLOOD SPECIMENOrdering Facility: [facility] Address: [address] [place] [address] Performed By: #### 2 4321-2 ####[facility] [place] LABCLIA [id number] [facility] [place] [address] [place] Creatinine and Glomerular filtration rate.predicted panel (S/P/Bld) 42 mL/min/1.73m??? Low >=60 [facility] Comment on above: Order Comment: Speci men Type: BLOOD SPECIMENOrdering Facility: [facility] Address: [address] [place] [address] Result Comment: Alexandra mated Glomerular Filtration Rate [...] actual GFR. Performed By: #### 2 4321-2 ####[facility] LABCLIA [id number] [place] [address] [place] Glucose [Mass/Vol] 130 mg/dL High 74-99 [facility] Comment on above: Order Comment: Speci men Type: BLOOD SPECIMENOrdering Facility: [facility] Address: [address] [place] [address] Result Comment: The [place] [employer] (ADA) provides guidance for cutoff [...] Standards of Medical Care in Diabetes 2016, [place] [employer]. Diabetes Care. 2016.39(Suppl 1). Performed By: #### 2 4321-2 ####[facility] [place] LABCLIA [id number] [place] [address] [place] Potassium [Moles/Vol] 4.2 mmol/L Normal 3.7-5.1 [facility] Comment on above: Order Comment: Speci men Type: BLOOD SPECIMENOrdering Facility: [facility] Address: [address] [place] [address] Performed By: #### 2 4321-2 ####[facility] [place] LABIA [id number] [place] [address] [place] Sodium [Moles/Vol] 139 mmol/L Normal 136-144 [facility] Comment on above: Order Comment: Speci men Type: BLOOD SPECIMENOrdering Facility: [facility] Address: [address] [place] [address] Performed By: #### 2 4321-2 ####[facility] [place] LABCLIA [id number] [place] [address] [place] Urea nitrogen [Mass/Vol] 20 mg/dL Normal 9-24 [facility] Comment on above: Order Comment: Speci men Type: BLOOD SPECIMENOrdering Facility: [facility] Address: [address] [place] [address] Performed By: #### 2 4321-2 ####[facility] LABCLIA [id number] [place] [address] [place] CBC panel Auto (Bld)on 01-08 Erythrocyte distribution width (RBC) [Ratio] 14.6 % Normal 11.5-15.0 [facility] Comment on above: Order Comment: Speci men Type: BLOOD SPECIMENOrdering Facility: [facility] Address: [address] [place] [address] Performed By: #### 5 8410-2 ####[facility] LABIA [id number] [place] [address] [place] Hematocrit (Bld) [Volume fraction] 34.2 % Low 39.0-51.0 [facility] Comment on above: Order Comment: Speci men Type: BLOOD SPECIMENOrdering Facility: [facility] Address: [address] [place] [address] Performed By: #### 5 8410-2 ####[facility] LABIA [id number] [address] [place] Hemoglobin (Bld) [Mass/Vol] 11.0 g/dL Low 13.0-17.0 [facility] Comment on above: Order Comment: Speci men Type: BLOOD SPECIMENOrdering Facility: [facility] Address: [address] [place] [address] Performed By: #### 5 8410-2 ####[facility] LABIA [id number] [place] [address] [place] MCH (RBC) [Entitic mass] 28.0 pg Normal 26.0-34.0 [facility] Comment on above: Order Comment: Speci men Type: BLOOD SPECIMENOrdering Facility: [facility] Address: [address] [place] [address] Performed By: #### 5 8410-2 ####[facility] LABCLIA [id number] [place] [address] [place] MCHC (RBC) [Mass/Vol] 32.2 g/dL Normal 30.5-36.0 [facility] Comment on above: Order Comment: Speci men Type: BLOOD SPECIMENOrdering Facility: [facility] Address: [address] [place] [address] Performed By: #### 5 8410-2 ####[facility] LABIA [id number] [place] [address] [place] MCV (RBC) [Entitic vol] 87.0 fL Normal 80.0-100.0 [facility] Comment on above: Order Comment: Speci men Type: BLOOD SPECIMENOrdering Facility: [facility] Address: [address] [place] [address] Performed By: #### 5 8410-2 ####[facility] [id number] [place] [address] [place] Nucleated RBC (Bld) [#/Vol] 10*3/uL Normal <0.01 [facility] Comment on above: Order Comment: Speci men Type: BLOOD SPECIMENOrdering Facility: [facility] Address: [address] [place] [address] Performed By: #### 5 8410-2 ####[facility] [id number] [place] [address] [place] Platelet mean volume (Bld) [Entitic vol] 13.7 fL High 9.0-12.7 [facility] Comment on above: Order Comment: Speci men Type: BLOOD SPECIMENOrdering Facility: [facility] Address: [address] [place] [address] Performed By: #### 5 8410-2 ####[facility] [id number] [place] [address] [place] Platelets (Bld) [#/Vol] 147 10*3/uL Low 150-400 [facility] Comment on above: Order Comment: Speci men Type: BLOOD SPECIMENOrdering Facility: [facility] Address: [address] [place] [address] Result Comment: Resu lts checked and verified.No clot detected. Performed By: #### 5 8410-2 ####[facility] LABCLIA [id number] [place] [address] [place] RBC (Bld) [#/Vol] 3.93 10*6/uL Low 4.20-6.00 [facility] Comment on above: Order Comment: Speci men Type: BLOOD SPECIMENOrdering Facility: [facility] Address: [address] [place] [address] Performed By: #### 5 8410-2 ####[facility] LABIA [id number] [place] [address] [place] WBC (Bld) [#/Vol] 9.00 10*3/uL Normal 3.70-11.00 [facility] Comment on above: Order Comment: Speci men Type: BLOOD SPECIMENOrdering Facility: [facility] Address: [address] [place] [address] Performed By: #### 5 8410-2 ####[facility] LABIA [id number] [place] [address] [place] Basic metabolic 2000 panelon 01-07-2024 Anion gap [Moles/Vol] 10 mmol/L Normal 9-18 [facility] Comment on above: Order Comment: Speci men Type: BLOOD SPECIMENOrdering Facility: [facility] Address: [address] [place] [address] Performed By: #### 2 4321-2 ####[facility] LABIA [id number] [place] [address] [place] Calcium [Mass/Vol] 9.5 mg/dL Normal 8.5-10.2 [facility] Comment on above: Order Comment: Speci men Type: BLOOD SPECIMENOrdering Facility: [facility] Address: [address] [place] [address] Performed By: #### 2 4321-2 ####[facility] LABCLIA [id number] [place] [address] [place] Chloride [Moles/Vol] 105 mmol/L Normal 97-105 [facility] Comment on above: Order Comment: Speci men Type: BLOOD SPECIMENOrdering Facility: [facility] Address: [address] [place] [address] Performed By: #### 2 4321-2 ####[facility] LABCLIA [id number] [place] [address] [place] CO2 [Moles/Vol] 27 mmol/L Normal 22-30 [facility] Comment on above: Order Comment: Speci men Type: BLOOD SPECIMENOrdering Facility: [facility] Address: [address] [place] [address] Performed By: #### 2 4321-2 ####[facility] LABCLIA [id number] [place] [address] [place] Creatinine [Mass/Vol] 1.66 mg/dL High 0.73-1.22 [facility] Comment on above: Order Comment: Speci men Type: BLOOD SPECIMENOrdering Facility: [facility] Address: [address] [place] [address] Performed By: #### 2 4321-2 ####[facility] LABIA [id number] [place] [address] [place] Creatinine and Glomerular filtration rate.predicted panel (S/P/Bld) 46 mL/min/1.73m??? Low >=60 [facility] Comment on above: Order Comment: Speci men Type: BLOOD SPECIMENOrdering Facility: [facility] Address: [address] [place] [address] Result Comment: Alexandra mated Glomerular Filtration Rate [...] actual GFR. Performed By: #### 2 4321-2 ####[facility] [id number] [place] [address] [place] Glucose [Mass/Vol] 132 mg/dL High 74-99 [facility] Comment on above: Order Comment: Tianna men Type: BLOOD SPECIMENOrdering Facility: [facility] Address: [address] [place] [address] Result Comment: The [place] [employer] (ADA) provides guidance for cutoff [...] Standards of Medical Care in Diabetes 2016, [place] [employer]. Diabetes Care. 2016.39(Suppl 1). Performed By: #### 2 4321-2 ####[facility] LABIA [id number] [place] [address] [place] Potassium [Moles/Vol] 5.0 mmol/L Normal 3.7-5.1 [facility] Comment on above: Order Comment: Tianna yuan Type: BLOOD SPECIMENOrdering Facility: [facility] Address: [address] [place] [address] Performed By: #### 2 4321-2 ####[facility] [id number] [place] [address] [place] Sodium [Moles/Vol] 142 mmol/L Normal 136-144 [facility] Comment on above: Order Comment: Carlottai men Type: BLOOD SPECIMENOrdering Facility: [facility] Address: [address] [place] [address] Performed By: #### 2 4321-2 ####[facility] LABCLIA [id number] [place] [address] [place] Urea nitrogen [Mass/Vol] 20 mg/dL Normal 9-24 [facility] Comment on above: Order Comment: Speci men Type: BLOOD SPECIMENOrdering Facility: [facility] Address: [address] [place] [address] Performed By: #### 2 4321-2 ####[facility] LABCLIA [id number] [place] [address] [place] CBC W Auto Differential pane l (Bld)on 01-07-2024 Basophils (Bld) [#/Vol] 10*3/uL Normal <0.11 [facility] Comment on above: Order Comment: Speci men Type: BLOOD SPECIMENOrdering Facility: [facility] Address: [address] [place] [address] Performed By: #### 5 7021-8 ####[facility] LABCLIA [id number] [place] [address] [place] Basophils/100 WBC (Bld) 0.1 % Normal [facility] Comment on above: Order Comment: Speci men Type: BLOOD SPECIMENOrdering Facility: [facility] Address: [address] [place] [address] Performed By: #### 5 7021-8 ####[facility] LABCLIA [id number] [place] [address] [place] Differential cell count method Nom (Bld) Auto Normal [facility] Comment on above: Order Comment: Speci men Type: BLOOD SPECIMENOrdering Facility: [facility] Address: [address] [place] [address] Performed By: #### 5 7021-8 ####[facility] LABCLIA [id number] [place] [address] [place] Eosinophils (Bld) [#/Vol] 10*3/uL Normal <0.46 [facility] Comment on above: Order Comment: Speci men Type: BLOOD SPECIMENOrdering Facility: [facility] Address: [address] [place] [address] Performed By: #### 5 7021-8 ####[facility] LABCLIA [id number] [place] [address] [place] Eosinophils/100 WBC (Bld) 0.0 % Normal [facility] Comment on above: Order Comment: Speci men Type: BLOOD SPECIMENOrdering Facility: [facility] Address: [address] [place] [address] Performed By: #### 5 7021-8 ####[facility] LABIA [id number] [place] [address] [place] Erythrocyte distribution width (RBC) [Ratio] 14.5 % Normal 11.5-15.0 [facility] Comment on above: Order Comment: Speci men Type: BLOOD SPECIMENOrdering Facility: [facility] Address: [address] [place] [address] Performed By: #### 5 7021-8 ####[facility] LABIA [id number] [place] [address] [place] Hematocrit (Bld) [Volume fraction] 37.1 % Low 39.0-51.0 [facility] Comment on above: Order Comment: Speci men Type: BLOOD SPECIMENOrdering Facility: [facility] Address: [address] [place] [address] Performed By: #### 5 7021-8 ####[facility] LABIA [id number] [place] [address] [place] Hemoglobin (Bld) [Mass/Vol] 12.2 g/dL Low 13.0-17.0 [facility] Comment on above: Order Comment: Speci men Type: BLOOD SPECIMENOrdering Facility: [facility] Address: [address] [place], [place] [address] Performed By: #### 5 7021-8 ####[facility] LABCLIA [id number] [place] [address] [place] Immature granulocytes (Bld) [#/Vol] 0.06 10*3/uL Normal <0.10 [facility] Comment on above: Order Comment: Speci men Type: BLOOD SPECIMENOrdering Facility: [facility] Address: [address] [place] [address] Performed By: #### 5 7021-8 ####[facility] LABCLIA [id number] [place] [address] [place] Immature granulocytes/100 WBC (Bld) 0.4 % Normal [facility] Comment on above: Order Comment: Speci men Type: BLOOD SPECIMENOrdering Facility: [facility] Address: [address] [place] [address] Performed By: #### 5 7021-8 ####[facility] LABCLIA [id number] [place] [address] [place] Lymphocytes (Bld) [#/Vol] 0.76 10*3/uL Low 1.00-4.00 [facility] Comment on above: Order Comment: Speci men Type: BLOOD SPECIMENOrdering Facility: [facility] Address: [address] [place] [address] Performed By: #### 5 7021-8 ####[facility] LABCLIA [id number] [place] [address] [place] Lymphocytes/100 WBC (Bld) 5.5 % Normal [facility] Comment on above: Order Comment: Speci men Type: BLOOD SPECIMENOrdering Facility: [facility] Address: [address] [place] [address] Performed By: #### 5 7021-8 ####[facility] LABCLIA [id number] [id number] [address] [place] MCH (RBC) [Entitic mass] 28.4 pg Normal 26.0-34.0 [facility] Comment on above: Order Comment: Speci men Type: BLOOD SPECIMENOrdering Facility: [facility] Address: [address] [place] [address] Performed By: #### 5 7021-8 ####[facility] LABCLIA [id number] [place] [address] [place] MCHC (RBC) [Mass/Vol] 32.9 g/dL Normal 30.5-36.0 [facility] Comment on above: Order Comment: Speci men Type: BLOOD SPECIMENOrdering Facility: [facility] Address: [address] [place] [address] Performed By: #### 5 7021-8 ####[facility] LABIA [id number] [place] [address] [place] MCV (RBC) [Entitic vol] 86.5 fL Normal 80.0-100.0 [facility] Comment on above: Order Comment: Speci men Type: BLOOD SPECIMENOrdering Facility: [facility] Address: [address] [place] [address] Performed By: #### 5 7021-8 ####[facility] LABIA [id number] [place] [address] [place] Monocytes (Bld) [#/Vol] 1.08 10*3/uL High <0.87 [facility] Comment on above: Order Comment: Speci men Type: BLOOD SPECIMENOrdering Facility: [facility] Address: [address] [place] [address] Performed By: #### 5 7021-8 ####[facility] LABCLIA [id number] [place] [address] [place] Monocytes/100 WBC (Bld) 7.8 % Normal [facility] Comment on above: Order Comment: Speci men Type: BLOOD SPECIMENOrdering Facility: [facility] Address: [address] [place] [address] Performed By: #### 5 7021-8 ####[facility] LABCLIA [id number] [place] [address] [place] Neutrophils (Bld) [#/Vol] 11.85 10*3/uL High 1.45-7.50 [facility] Comment on above: Order Comment: Speci men Type: BLOOD SPECIMENOrdering Facility: [facility] Address: [address] [place] [address] Performed By: #### 5 7021-8 ####[facility] LABCLIA [id number] [place] [address] [place] Neutrophils/100 WBC (Bld) 86.2 % Normal [facility] Comment on above: Order Comment: Speci men Type: BLOOD SPECIMENOrdering Facility: [facility] Address: [address] [place] [address] Performed By: #### 5 7021-8 ####[facility] LABCLIA [id number] [place] [address] [place] Nucleated RBC (Bld) [#/Vol] 10*3/uL Normal <0.01 [facility] Comment on above: Order Comment: Speci men Type: BLOOD SPECIMENOrdering Facility: [facility] Address: [address] [place] [address] Performed By: #### 5 7021-8 ####[facility] LABCLIA [id number] [place] [address] [place] Nucleated RBC/100 WBC (Bld) [Ratio] 0.0 /100 WBC Normal [facility] Comment on above: Order Comment: Speci men Type: BLOOD SPECIMENOrdering Facility: [facility] Address: [address] [place] [address] Performed By: #### 5 7021-8 ####[facility] LABCLIA [id number] [place] [address] [place] Platelet mean volume (Bld) [Entitic vol] 12.9 fL High 9.0-12.7 [facility] Comment on above: Order Comment: Speci men Type: BLOOD SPECIMENOrdering Facility: [facility] Address: [address] [place] [address] Performed By: #### 5 7021-8 ####[facility] LABIA [id number] [place] [address] [place] Platelets (Bld) [#/Vol] 164 10*3/uL Normal 150-400 [facility] Comment on above: Order Comment: Speci men Type: BLOOD SPECIMENOrdering Facility: [facility] Address: [address] [place] [address] Performed By: #### 5 7021-8 ####[facility] LABIA [id number] [place] [address] [place] RBC (Bld) [#/Vol] 4.29 10*6/uL Normal 4.20-6.00 [facility] Comment on above: Order Comment: Speci men Type: BLOOD SPECIMENOrdering Facility: [facility] Address: [address] [place] [address] Performed By: #### 5 7021-8 ####[facility] LABIA [id number] [place] [address] [place] WBC (Bld) [#/Vol] 13.76 10*3/uL High 3.70-11.00 [facility] Comment on above: Order Comment: Speci men Type: BLOOD SPECIMENOrdering Facility: [facility] Address: [address] [place] [address] Performed By: #### 5 7021-8 ####[facility] LABCLIA [id number] [place] [address] [place] NURSING PROGon 01-07-2024 NURSING PROG HNO ID: [id number] Author: MARILYN MENARD RN Service: Nursing Author Type: Registered Nurse Type: Nursing Progress Note Filed: 01/07/2024 17:44 Note Text: Transfer Note: PATIENT NAME: Ashley Ledesma Patient Location: [place] [address]/G0 Room: [place] [address] Patient transferred into room/unit G90-9 in stable condition. Actions taken: No futher actions taken at this time. Will continue to monitor and check with patient. [facility] ANES POSTPROC EVALon 024 ANES POSTPROC EVAL HNO ID: [id number] Author: MASON ARMAS MD Service: ? Author Type: Physician Type: Anesthesia Postprocedure Evaluation Filed: 01/06/2024 19:31 Note Text: POST ANESTHESIA EVALUATION NOTE : 1960 Procedure Summary Date: 01/06/24 Room / Location: [address] Anesthesia Start: 1422 Anesthesia Stop: 1904 Procedure: LAPAROSCOPIC HAND ASSISTED NEPHRECTOMY (Left: Kidney) Diagnosis: Renal mass (Renal mass [N28.89]) Surgeons: Charlotte Lindsey MD Responsible Provider: Mason Armas MD Anesthesia Type: general ASA Status: 3 Anesthesia Type: general Airway Type: ETT Last Vitals Vitals Value Taken Time BP 143/76 01/06/240 Temp 37.1 ?C (98.8 ?F) 01/06/24 190 Pulse 83 01/06/240 Resp 17 01/06/241929 SpO2 100 % 01/06/241929 [...] January 06, 2024 TIME: 7:31 PM CSN: [id number] [facility] ANES PRE-OPon 01-06-2024 ANES PRE-OP HNO ID: [id number] Author: PANDA CONNELLY MD Service: ? Author Type: Anesthesiologist Type: Anesthesia Preprocedure Evaluation Filed: 01/06/2024 13:54 Note Text: ANESTHESIOLOGY DAY OF SURGERY NOTE : 1960 Procedure Information Date/Time: 01/06/24 1336 Procedure: ROBOTIC LAPAROSCOPIC NEPHRECTOMY RADICAL (Left: Kidney) Location: [facility] [place] Surgeons: Charlotte Lindsey MD Estimated body mass [...] and consent discussed: yes. Patient / Responsible Democrat agrees to proceed: yes Patient / Surrogate agrees to blood products: Yes Significant changes in the patient condition since the History and Physical, not otherwise documented in primary service progress note: no. Potential Anesthesia issues that may suggest increased risk of complications or contraindication to planned procedure: none. Vitals Value Taken Time BP 170/84 01/06/24 0900 Pulse 72 01/06/24 0900 Resp 16 01/06/24 0900 Temp 36.6 ?C (97.9 ?F) 01/06/24 09 SpO2 99 % 01/06/24 0900 No current facility-administered medications on file as [...] January 06, 2024 TIME: 1:53 PM CSN: [id number] [facility] BRIEF OP NOTon 01-06-2024 BRIEF OP NOT HNO ID: [id number] Author: ROLF CASEY MD Service: Urology Author Type: Physician Type: Brief Op Note Filed: 01/06/2024 18:44 Note Text: BRIEF OPERATIVE / PROCEDURE NOTE LOG ID: [id number] SURGERY/PROCEDURE DATE: 01/06/2024 INCISION/PROCEDURE START TIME: 3:15 PM INCISION CLOSE/PROCEDURE END TIME: 6:38 PM SURGEON(S)/PROCEDURALIST(S) AND CULTURE ROOM WORKER(S): Surgeon(s) and Role: * Charlotte Lindsey MD [...] January 06, 2024 TIME: 6:43 PM [facility] CBC W Auto Differential pane l (Bld)on 01-06-2024 Basophils (Bld) [#/Vol] 10*3/uL Normal <0.11 [facility] Comment on above: Order Comment: Speci men Type: BLOOD SPECIMENOrdering Facility: [facility] Address: [address] [place] [address] Performed By: #### 5 7021-8 ####[facility] LABCLIA [id number] [place] [address] [place] Basophils/100 WBC (Bld) 0.1 % [facility] Comment on above: Order Comment: Speci men Type: BLOOD SPECIMENOrdering Facility: [facility] Address: [address] [place] [address] Performed By: #### 5 7021-8 ####[facility] LABCLIA [id number] [place] [address] [place] Differential cell count method Nom (Bld) Auto [facility] Comment on above: Order Comment: Speci men Type: BLOOD SPECIMENOrdering Facility: [facility] Address: [address] [place] [address] Performed By: #### 5 7021-8 ####[facility] LABCLIA [id number] [place] [address] [place] Eosinophils (Bld) [#/Vol] 10*3/uL Normal <0.46 [facility] Comment on above: Order Comment: Speci men Type: BLOOD SPECIMENOrdering Facility: [facility] Address: [address] [place] [address] Performed By: #### 5 7021-8 ####[facility] LABCLIA [id number] [place] [address] [place] Eosinophils/100 WBC (Bld) 0.1 % [facility] Comment on above: Order Comment: Speci men Type: BLOOD SPECIMENOrdering Facility: [facility] Address: [address] [place] [address] Performed By: #### 5 7021-8 ####[facility] LABCLIA [id number] [place] [address] [place] Erythrocyte distribution width (RBC) [Ratio] 14.5 % Normal 11.5-15.0 [facility] Comment on above: Order Comment: Speci men Type: BLOOD SPECIMENOrdering Facility: [facility] Address: [address] [place] [address] Performed By: #### 5 7021-8 ####[facility] LABIA [id number] [place] [address] [place] Hematocrit (Bld) [Volume fraction] 37.4 % Low 39.0-51.0 [facility] Comment on above: Order Comment: Speci men Type: BLOOD SPECIMENOrdering Facility: [facility] Address: [address] [place] [address] Performed By: #### 5 7021-8 ####[facility] LABIA [id number] [place] [address] [place] Hemoglobin (Bld) [Mass/Vol] 12.0 g/dL Low 13.0-17.0 [facility] Comment on above: Order Comment: Speci men Type: BLOOD SPECIMENOrdering Facility: [facility] Address: [address] [place] [address] Performed By: #### 5 7021-8 ####[facility] LABCLIA [id number] [place] [address] [place] Immature granulocytes (Bld) [#/Vol] 0.05 10*3/uL Normal <0.10 [facility] Comment on above: Order Comment: Speci men Type: BLOOD SPECIMENOrdering Facility: [facility] Address: [address] [place] [address] Performed By: #### 5 7021-8 ####[facility] LABCLIA [id number] [place] [address] [place] Immature granulocytes/100 WBC (Bld) 0.3 % [facility] Comment on above: Order Comment: Speci men Type: BLOOD SPECIMENOrdering Facility: [facility] Address: [address] [place] [address] Performed By: #### 5 7021-8 ####[facility] LABCLIA [id number] [place] [address] [place] Lymphocytes (Bld) [#/Vol] 1.06 10*3/uL Normal 1.00-4.00 [facility] Comment on above: Order Comment: Speci men Type: BLOOD SPECIMENOrdering Facility: [facility] Address: [address] [place] [address] Performed By: #### 5 7021-8 ####[facility] LABCLIA [id number] [place] [address] [place] Lymphocytes/100 WBC (Bld) 7.4 % [facility] Comment on above: Order Comment: Speci men Type: BLOOD SPECIMENOrdering Facility: [facility] Address: [address] [place] [address] Performed By: #### 5 7021-8 ####[facility] LABCLIA [id number] [place] [address] [place] MCH (RBC) [Entitic mass] 28.0 pg Normal 26.0-34.0 [facility] Comment on above: Order Comment: Speci men Type: BLOOD SPECIMENOrdering Facility: [facility] Address: [address] [place] [address] Performed By: #### 5 7021-8 ####[facility] LABCLIA [id number] [place] [address] [place] MCHC (RBC) [Mass/Vol] 32.1 g/dL Normal 30.5-36.0 [facility] Comment on above: Order Comment: Speci men Type: BLOOD SPECIMENOrdering Facility: [facility] Address: [address] [place] [address] Performed By: #### 5 7021-8 ####[facility] LABCLIA [id number] [place] [address] [place] MCV (RBC) [Entitic vol] 87.2 fL Normal 80.0-100.0 [facility] Comment on above: Order Comment: Speci men Type: BLOOD SPECIMENOrdering Facility: [facility] Address: [address] [place] [address] Performed By: #### 5 7021-8 ####[facility] LABCLIA [id number] [place] [address] [place] Monocytes (Bld) [#/Vol] 0.75 10*3/uL Normal <0.87 [facility] Comment on above: Order Comment: Speci men Type: BLOOD SPECIMENOrdering Facility: [facility] Address: [address] [place] [address] Performed By: #### 5 7021-8 ####[facility] LABCLIA [id number] [place] [address] [place] Monocytes/100 WBC (Bld) 5.2 % [facility] Comment on above: Order Comment: Speci men Type: BLOOD SPECIMENOrdering Facility: [facility] Address: [address] [place] [address] Performed By: #### 5 7021-8 ####[facility] LABCLIA [id number] [place] [address] [place] Neutrophils (Bld) [#/Vol] 12.43 10*3/uL High 1.45-7.50 [facility] Comment on above: Order Comment: Speci men Type: BLOOD SPECIMENOrdering Facility: [facility] Address: [address] [place] [address] Performed By: #### 5 7021-8 ####[facility] LABCLIA [id number] [place] [address] [place] Neutrophils/100 WBC (Bld) 86.9 % [facility] Comment on above: Order Comment: Speci men Type: BLOOD SPECIMENOrdering Facility: [facility] Address: [address] [place] [address] Performed By: #### 5 7021-8 ####[facility] LABCLIA [id number] [place] [address] [place] Nucleated RBC (Bld) [#/Vol] 10*3/uL Normal <0.01 [facility] Comment on above: Order Comment: Speci men Type: BLOOD SPECIMENOrdering Facility: [facility] Address: [address] [place] [address] Performed By: #### 5 7021-8 ####[facility] LABCLIA [id number] [place] [address] [place] Nucleated RBC/100 WBC (Bld) [Ratio] 0.0 /100 WBC [facility] Comment on above: Order Comment: Speci men Type: BLOOD SPECIMENOrdering Facility: [facility] Address: [address] [place] [address] Performed By: #### 5 7021-8 ####[facility] LABCLIA [id number] [place] [address] [place] Platelet mean volume (Bld) [Entitic vol] 12.9 fL High 9.0-12.7 [facility] Comment on above: Order Comment: Speci men Type: BLOOD SPECIMENOrdering Facility: [facility] Address: [address] [place] [address] Performed By: #### 5 7021-8 ####[facility] LABCLIA [id number] [place] [address] [place] Platelets (Bld) [#/Vol] 181 10*3/uL Normal 150-400 [facility] Comment on above: Order Comment: Speci men Type: BLOOD SPECIMENOrdering Facility: [facility] Address: [address] [place] [address] Performed By: #### 5 7021-8 ####[facility] LABCLIA [id number] [place] [address] [place] RBC (Bld) [#/Vol] 4.29 10*6/uL Normal 4.20-6.00 [facility] Comment on above: Order Comment: Speci men Type: BLOOD SPECIMENOrdering Facility: [facility] Address: [address] [place] [address] Performed By: #### 5 7021-8 ####[facility] LABCLIA [id number] [place] [address] [place] WBC (Bld) [#/Vol] 14.32 10*3/uL High 3.70-11.00 [facility] Comment on above: Order Comment: Speci men Type: BLOOD SPECIMENOrdering Facility: [facility] Address: [address] [place] [address] Performed By: #### 5 7021-8 ####[facility] LABIA [id number] [place] [address] [place] [facility] Comprehensive metabolic 2000 panelon 01-06-2024 Albumin [Mass/Vol] 4.0 g/dL Normal 3.9-4.9 [facility] Comment on above: Order Comment: Speci men Type: BLOOD SPECIMENOrdering Facility: [facility] Address: [address] [place] [address] Performed By: #### 2 4323-8 ####[facility] LABIA [id number] [place] [address] [place] ALP [Catalytic activity/Vol] 61 U/L Normal 38-113 [facility] Comment on above: Order Comment: Speci men Type: BLOOD SPECIMENOrdering Facility: [facility] Address: [address] [place] [address] Performed By: #### 2 4323-8 ####[facility] LABCLIA [id number] [place] [address] [place] ALT [Catalytic activity/Vol] 9 U/L Low 10-54 [facility] Comment on above: Order Comment: Speci men Type: BLOOD SPECIMENOrdering Facility: [facility] Address: [address] [place] [address] Performed By: #### 2 4323-8 ####[facility] LABCLIA [id number] [place] [address] [place] Anion gap [Moles/Vol] 11 mmol/L Normal 9-18 [facility] Comment on above: Order Comment: Speci men Type: BLOOD SPECIMENOrdering Facility: [facility] Address: [address] [place] [address] Performed By: #### 2 4323-8 ####[facility] LABCLIA [id number] [place] [address] [place] AST [Catalytic activity/Vol] 24 U/L Normal 14-40 [facility] Comment on above: Order Comment: Speci men Type: BLOOD SPECIMENOrdering Facility: [facility] Address: [address] [place] [address] Performed By: #### 2 4323-8 ####[facility] LABCLIA [id number] [place] [address] [place] Bilirubin [Mass/Vol] 0.6 mg/dL Normal 0.2-1.3 [facility] Comment on above: Order Comment: Speci men Type: BLOOD SPECIMENOrdering Facility: [facility] Address: [address] [place] [address] Performed By: #### 2 4323-8 ####[facility] LABCLIA [id number] [place] [address] [place] Calcium [Mass/Vol] 9.3 mg/dL Normal 8.5-10.2 [facility] Comment on above: Order Comment: Speci men Type: BLOOD SPECIMENOrdering Facility: [facility] Address: [address] [place] [address] Performed By: #### 2 4323-8 ####[facility] LABCLIA [id number] [place] [address] [place] Chloride [Moles/Vol] 107 mmol/L High 97-105 [facility] Comment on above: Order Comment: Speci men Type: BLOOD SPECIMENOrdering Facility: [facility] Address: [address] [place] [address] Performed By: #### 2 4323-8 ####[facility] LABCLIA [id number] [place] [address] [place] CO2 [Moles/Vol] 23 mmol/L Normal 22-30 [facility] Comment on above: Order Comment: Speci men Type: BLOOD SPECIMENOrdering Facility: [facility] Address: [address] [place] [address] Performed By: #### 2 4323-8 ####[facility] LABCLIA [id number] [place] [address] [place] Creatinine [Mass/Vol] 1.50 mg/dL High 0.73-1.22 [facility] Comment on above: Order Comment: Speci men Type: BLOOD SPECIMENOrdering Facility: [facility] Address: [address] [place] [address] Performed By: #### 2 4323-8 ####[facility] LABCLIA [id number] [place] [address] [place] Creatinine and Glomerular filtration rate.predicted panel (S/P/Bld) 52 mL/min/1.73m??? Low >=60 [facility] Comment on above: Order Comment: Speci men Type: BLOOD SPECIMENOrdering Facility: [facility] Address: [address] [place] [address] Result Comment: Alexandra mated Glomerular Filtration Rate [...] actual GFR. Performed By: #### 2 4323-8 ####[facility] LABIA [id number] [place] [address] [place] Glucose [Mass/Vol] 151 mg/dL High 74-99 [facility] Comment on above: Order Comment: Tianna yuan Type: BLOOD SPECIMENOrdering Facility: [facility] Address: [address] [place] [address] Result Comment: The [place] Diabetes Association (ADA) provides guidance for cutoff [...] Standards of Medical Care in Diabetes 2016, [place] [employer]. Diabetes Care. 2016.39(Suppl 1). Performed By: #### 2 4323-8 ####[facility] LABIA [id number] [place] [address] [place] Potassium [Moles/Vol] 4.2 mmol/L Normal 3.7-5.1 [facility] Comment on above: Order Comment: Tianna yuan Type: BLOOD SPECIMENOrdering Facility: [facility] Address: [address] [place] [address] Performed By: #### 2 4323-8 ####[facility] LABIA [id number] [place] [address] [place] Protein [Mass/Vol] 5.9 g/dL Low 6.3-8.0 [facility] Comment on above: Order Comment: Speci men Type: BLOOD SPECIMENOrdering Facility: [facility] Address: [address] [place] [address] Performed By: #### 2 4323-8 ####[facility] LABCLIA [id number] [place] [address] [place] Sodium [Moles/Vol] 141 mmol/L Normal 136-144 [facility] Comment on above: Order Comment: Speci men Type: BLOOD SPECIMENOrdering Facility: [facility] Address: [address] [place] [address] Performed By: #### 2 4323-8 ####[facility] LABCLIA [id number] [place] [address] [place] Urea nitrogen [Mass/Vol] 22 mg/dL Normal 9-24 [facility] Comment on above: Order Comment: Speci men Type: BLOOD SPECIMENOrdering Facility: [facility] Address: [address] [place] [address] Performed By: #### 2 4323-8 ####[facility] LABCLIA [id number] [place] [address] [place] OPERATIVE NOon 01-06-2024 OPERATIVE NO HNO ID: [id number] Author: CHARLOTTE LINDSEY MD Service: Urology Author Type: Physician Type: Operative Report Filed: 02/07/2024 09:31 Note Text: UROLOGY OPERATIVE REPORT LOG ID: [id number] Surgery/Procedure Date: 01/06/2024 Incision/Procedure Start Time: 3:15 PM Incision Close/Procedure End Time: 6:38 PM Surgeon(s)/Proceduralist(s) and Tool And Die Technician(s): Surgeon(s) and Role: * Charlotte Lindsey MD [...] and surgical glue. The other 12 mm events assistant ports were closed with 0-Vicryl utilizing [...] 5:57 PM Implanted Devices: None Drains: 20 [place] Zuniga catheter Complications: None SIGNATURE: Rolf Casey MD DATE: January 07, 2024 TIME: 12:06 PM [facility] SURGICAL PATHOLOGYon 024 BLOCK FOR ADDITIONAL BIOMARKERS/MOLECU LAR STUDIES A8, A13 [facility] Comment on above: Order Comment: Speci men Type: TISSUE SPECIMENOrdering Facility: [facility] Address: [address] [place] [address] Performed By: #### S ####[facility] LABCLIA [id number] [place] [address] [place] CASE REPORT [facility] Comment on above: Order Comment: Speci men Type: TISSUE SPECIMENOrdering Facility: [facility] Address: [address] [place] [address] Result Comment: Surg [facility] Pathology Report Case: [id number] Authorizing Provider: Charlotte Lindsey MD Collected: 01/06/2024 05:57 PM Ordering Location: Admitting Received: 01/06/2024 06:00 PM Pathologist: Dilip Acevedo MD Specimen: KIDNEY RADICAL RESECTION LEFT, with mass Performed By: #### S ####[facility] LABCLIA [id number] [place] [address] [place] CLINICAL HISTORY Normal [facility] Comment on above: Order Comment: Speci men Type: TISSUE SPECIMENOrdering Facility: [facility] Address: [address] [place] [address] Result Comment: Pre- op diagnosis: Renal mass [N28.89] Performed By: #### S ####[facility] LABCLIA [id number] [place] [address] [place] FINAL DIAGNOSIS [facility] Comment on above: Order Comment: Speci men Type: TISSUE SPECIMENOrdering Facility: [facility] Address: [address] [place] [address] Result Comment: SeraDmitry Pepe guerrier, left, total nephrectomy: - 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 - Surgical margins are negative. - See synoptic template. JKM/LAUREN 01/11/2024 Performed By: #### S ####[facility] LABCLIA [id number] [address] OF [facility] FINAL PERFORMING LAB [facility] Comment on above: Order Comment: Speci men Type: TISSUE SPECIMENOrdering Facility: [facility] Address: [address] [place] [address] Result Comment: Diag nostic interpretation performed at [facility], [address] [place] [address] CLIA# [id number] Substance Abuse Prevention Coordinator: Damon Casas M.D. Performed By: #### S ####[facility] LABCLIA [id number] [address] GROSS DESCRIPTION Normal [facility] Comment on above: Order Comment: Speci men Type: TISSUE SPECIMENOrdering Facility: [facility] Address: [address] [place] [address] Result Comment: Kenia GUERRIER RADICAL RESECTION LEFT [...] present. Photographs are attached to the case. Mine Promotor sections are submitted as follows: A1 ureter margin A2 vascular margin A3-A6 mass with possible renal sinus fat involvement A7-A9 mass with perinephric fat involvement A10-A11 different areas of mass (possible involvement of vessels) A12-A14 mass involving possible vessels A15 uninvolved kidney parenchyma MLG January 07, 2024 11:06 AM Gross examination performed at [facility], [address] [place] [address] Performed By: #### S ####[facility] LABCLIA [id number] [facility] [place] [address] [place] SYNOPTIC REPORT [facility] Comment on above: Order Comment: Speci men Type: TISSUE SPECIMENOrdering Facility: [facility] Address: [address] [place] [address] Result Comment: [place] EY: Nephrectomy KIDNEY: RESECTION [...] Kidney: None identified Performed By: #### S ####[facility] LABCLIA [id number] [address] [place] CT CHEST WO IVCONon 01-05-[address] CHEST WO IVCON * * *Final Report* * * DATE OF EXAM: Jan 05 2024 3:03PM [facility] 0541 - CT CHEST WO IVCON / [...] renal mass, previously evaluated on abdominal CT. Fireman Helper (topogram) images: No additional findings. IMPRESSION: No CT evidence of acute abnormality. No findings of metastatic disease in the thorax. Lehr Tender: SHASHI Transcribe Date/Time: Jan 05 2024 3:24P Dictated by : DANIEL LOCKWOOD MD This examination was interpreted and the report reviewed and electronically signed by: DANIEL LOCKWOOD MD on Jan 05 2024 3:29PM EST [id number] [facility] CT Chest WO contraston 01-05 [facility] ECG COMPLETEon 01-05-2024 ECG COMPLETE Ventricular Rate : 6 8 BPM Atrial Rate : 68 BPM P-R Interval : 156 ms QRS Duration : 86 ms Q-T Interval : 368 ms QTC Calculation(Bazett) : 391 ms Calculated P [place] : 68 degrees Calculated R [place] : 68 degrees Calculated T [place] : 50 degrees NORMAL SINUS RHYTHM POSSIBLE LEFT ATRIAL ENLARGEMENT BORDERLINE ECG Confirmed by MARGARITA LANDEROS MD ([id number]) on 01/08/2024 9:05:40 PM NAME : ASHLEY LEDESMA PID : [id number] : 1960 Gender : Male Race : ORD : [id number] Procedure Date : Jan 05 2024 08:47:22 [...] , Acquired by : BEREKET SINGLETARY [facility] HISTORY PHYSICALon HISTORY PHYSICAL HNO ID: [id number] Author: LEYDA PARKER DO Service: ? Author [...] fevers. 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 No neurological symptoms or problems. Respiratory: No history of current cough or dyspnea, or pneumonia in the past 6 weeks. No history of respiratory/pulmonary symptoms or problems. Cardiovascular: No history of HTN requiring medication, no history of angina, CHF, ID, cardiac surgery or stents. Denies rest pain, [...] He clements (more content not included)... [facility] NM RENAL FLOW/FXN WO PHARMon 01-05-2024 NM RENAL FLOW/FXN WO PHARM * * *Final Report* * * DATE OF EXAM: Jan 05 2024 1:23PM [facility] 0036 - NM RENAL FLOW/FXN WO PHARM / PROCEDURE REASON: [...] Split renal function: Left- 49%; right- 51% Lehr Tender: SHASHI Transcribe Date/Time: Jan 05 2024 3:48P Dictated by : YING HERNANDEZ MD This examination was interpreted and the report reviewed and electronically signed by: YING HERNANDEZ MD on Jan 05 2024 3:51PM EST [id number] [facility] No Panel Informationon 01-05 [facility] MR Kidney WO and W contrast Karen 01-04-2024 [facility] MRI KIDNEY WO/W IVCONon - MRI KIDNEY WO/W IVCON * * *Final Report* * * DATE OF EXAM: Jan 04 2024 10:39AM [facility] 0721 - MRI KIDNEY WO/W IVCON / [...] included: axial precontrast T1 weighted in- and [id number], axial and coronal HASTE, axial DWI with [...] metastatic disease in the visualized upper abdomen. Lehr Tender: PSCB Transcribe Date/Time: Jan 04 2024 10:44A Dictated by : RAMONITA SHEEHAN DO This examination was interpreted and the report reviewed and electronically signed by: SHARONDA GALLAGHER MD on Jan 04 2024 12:58PM EST [id number] [facility] TYPE AND SCREEN,30 DAYon ABO group Nom (Bld) O [facility] Blood group antibody screen Ql Negative [facility] HIstorical Ab Scr Status Negative [facility] Rh Nom (Bld) Positive [facility] CBC panel Auto (Bld)on 01-03 Erythrocyte distribution width (RBC) [Ratio] 14.4 % 11.5 - 15.0 % [facility] Hematocrit (Bld) [Volume fraction] 42.3 % 39.0 - 51.0 % [facility] Hemoglobin (Bld) [Mass/Vol] 13.4 g/dL 13.0 - 17.0 g/dL [facility] MCH (RBC) [Entitic mass] 27.5 pg 26.0 - 34.0 pg [facility] MCHC (RBC) [Mass/Vol] 31.7 g/dL 30.5 - 36.0 g/dL [facility] MCV (RBC) [Entitic vol] 86.9 fL 80.0 - 100.0 fL [facility] Nucleated RBC (Bld) [#/Vol] <0.01 k/uL [facility] Platelet mean volume (Bld) [Entitic vol] 12.9 fL High 9.0 - 12.7 fL [facility] Platelets (Bld) [#/Vol] 180 10*3/uL 150 - 400 k/uL [facility] RBC (Bld) [#/Vol] 4.87 10*6/uL 4.20 - 6.0 0 m/uL [facility] WBC (Bld) [#/Vol] 5.60 10*3/uL 3.70 - 11. 00 k/uL [facility] Erythrocyte distribution width (RBC) [Ratio] 14.4 % Normal 11.5-15.0 [facility] Comment on above: Order Comment: Speci men Type: BLOOD SPECIMENOrdering Facility: [facility] Address: [address] [place] [address] Performed By: #### 5 8410-2 ####[facility] LABCLIA [id number] [place] [address] Hematocrit (Bld) [Volume fraction] 42.3 % Normal 39.0-51.0 [facility] Comment on above: Order Comment: Speci men Type: BLOOD SPECIMENOrdering Facility: [facility] Address: [address] [place] [address] Performed By: #### 5 8410-2 ####[facility] LABCLIA [id number] [place] [address] Hemoglobin (Bld) [Mass/Vol] 13.4 g/dL Normal 13.0-17.0 [facility] Comment on above: Order Comment: Speci men Type: BLOOD SPECIMENOrdering Facility: [facility] Address: [address] [place] [address] Performed By: #### 5 8410-2 ####[facility] LABCLIA [id number] [place] [address] MCH (RBC) [Entitic mass] 27.5 pg Normal 26.0-34.0 [facility] Comment on above: Order Comment: Speci men Type: BLOOD SPECIMENOrdering Facility: [facility] Address: [address] [place] [address] Performed By: #### 5 8410-2 ####[facility] LABIA [id number] [place] [address] MCHC (RBC) [Mass/Vol] 31.7 g/dL Normal 30.5-36.0 [facility] Comment on above: Order Comment: Speci men Type: BLOOD SPECIMENOrdering Facility: [facility] Address: [address] [place] [address] Performed By: #### 5 8410-2 ####[facility] LABCLIA [id number] [place] [address] MCV (RBC) [Entitic vol] 86.9 fL Normal 80.0-100.0 [facility] Comment on above: Order Comment: Speci men Type: BLOOD SPECIMENOrdering Facility: [facility] Address: [address] [place] [address] Performed By: #### 5 8410-2 ####[facility] LABCLIA [id number] [place] [address] Nucleated RBC (Bld) [#/Vol] 10*3/uL Normal <0.01 [facility] Comment on above: Order Comment: Speci men Type: BLOOD SPECIMENOrdering Facility: [facility] Address: [address] [place] [address] Performed By: #### 5 8410-2 ####[facility] LABIA [id number] [place] [address] Platelet mean volume (Bld) [Entitic vol] 12.9 fL High 9.0-12.7 [facility] Comment on above: Order Comment: Speci men Type: BLOOD SPECIMENOrdering Facility: [facility] Address: [address] [place] [address] Performed By: #### 5 8410-2 ####[facility] LABCLIA [id number] [place] [address] Platelets (Bld) [#/Vol] 180 10*3/uL Normal 150-400 [facility] Comment on above: Order Comment: Speci men Type: BLOOD SPECIMENOrdering Facility: [facility] Address: [address] [place] [address] Result Comment: No c lot detected.Results checked and verified. Performed By: #### 5 8410-2 ####[facility] LABCLIA [id number] [place] [address] RBC (Bld) [#/Vol] 4.87 10*6/uL Normal 4.20-6.00 [facility] Comment on above: Order Comment: Speci men Type: BLOOD SPECIMENOrdering Facility: [facility] Address: [address] [place] [address] Performed By: #### 5 8410-2 ####[facility] LABCLIA [id number] [place] [address] WBC (Bld) [#/Vol] 5.60 10*3/uL Normal 3.70-11.00 [facility] Comment on above: Order Comment: Speci men Type: BLOOD SPECIMENOrdering Facility: [facility] Address: [address] [place] [address] Performed By: #### 5 8410-2 ####[facility] LABCLIA [id number] [place] [address] CONFIRM BLOOD TYPEon 024 ABO group Nom (Bld) O [facility] Rh Nom (Bld) Positive [facility] ABO O [facility] Comment on above: Order Comment: Speci men Type: BLOOD SPECIMENOrdering Facility: [facility] Address: [address] [place] [address] Performed By: #### C ONABO ####[facility] BLOOD BANKCLIA [id number] [address] [place] Rh Nom (Bld) Positive [facility] Comment on above: Order Comment: Speci men Type: BLOOD SPECIMENOrdering Facility: [facility] Address: [address] [place] [address] Performed By: #### C ONABO ####[facility] BLOOD BANKCLIA [id number] [place] [address] [place] Comprehensive metabolic 2000 panelon 01-03-2024 Albumin [Mass/Vol] 5.0 g/dL High 3.9 - 4.9 g/dL [facility] ALP [Catalytic activity/Vol] 81 U/L 38 - 113 U/L [facility] ALT [Catalytic activity/Vol] 11 U/L 10 - 54 U/L [facility] Anion gap [Moles/Vol] 13 mmol/L 9 - 18 mmol/L [facility] AST [Catalytic activity/Vol] 24 U/L 14 - 40 U/L [facility] Bilirubin [Mass/Vol] 0.8 mg/dL 0.2 - 1.3 mg/dL [facility] Calcium [Mass/Vol] 10.5 mg/dL High 8.5 - 10.2 mg/dL [facility] Chloride [Moles/Vol] 105 mmol/L 97 - 105 mmol/L [facility] CO2 [Moles/Vol] 25 mmol/L 22 - 30 mmol/L [facility] Creatinine [Mass/Vol] 1.35 mg/dL High 0.73 - 1.22 mg/dL [facility] Estimated Glomerular Filtration Rate 59 mL/min/1.73m Low >=60 mL/min/1.73m [facility] Glucose [Mass/Vol] 105 mg/dL High 74 - 99 mg/dL [facility] Potassium [Moles/Vol] 4.3 mmol/L 3.7 - 5.1 mmol/L [facility] Protein [Mass/Vol] 7.4 g/dL 6.3 - 8.0 g/dL [facility] Sodium [Moles/Vol] 143 mmol/L 136 - 144 mmol/L [facility] Urea nitrogen [Mass/Vol] 22 mg/dL 9 - 24 mg/dL [facility] Albumin [Mass/Vol] 5.0 g/dL High 3.9-4.9 [facility] Comment on above: Order Comment: Speci men Type: BLOOD SPECIMENOrdering Facility: [facility] Address: [address] [place] [address] Performed By: #### 2 4323-8 ####[facility] LABCLIA [id number] [place] [address] ALP [Catalytic activity/Vol] 81 U/L Normal 38-113 [facility] Comment on above: Order Comment: Speci men Type: BLOOD SPECIMENOrdering Facility: [facility] Address: [address] [id number] Performed By: #### 2 4323-8 ####[facility] LABCLIA [id number] [place] [address] ALT [Catalytic activity/Vol] 11 U/L Normal 10-54 [facility] Comment on above: Order Comment: Speci men Type: BLOOD SPECIMENOrdering Facility: [facility] Address: [address] [place] [address] Performed By: #### 2 4323-8 ####[facility] LABCLIA [id number] [place] [address] Anion gap [Moles/Vol] 13 mmol/L Normal 9-18 [facility] Comment on above: Order Comment: Speci men Type: BLOOD SPECIMENOrdering Facility: [facility] Address: [address] [place] [address] Performed By: #### 2 4323-8 ####[facility] LABCLIA [id number] [place] [address] AST [Catalytic activity/Vol] 24 U/L Normal 14-40 [facility] Comment on above: Order Comment: Speci men Type: BLOOD SPECIMENOrdering Facility: [facility] Address: [address] [place] [address] Performed By: #### 2 4323-8 ####[facility] LABCLIA [id number] [place] [address] Bilirubin [Mass/Vol] 0.8 mg/dL Normal 0.2-1.3 [facility] Comment on above: Order Comment: Speci men Type: BLOOD SPECIMENOrdering Facility: [facility] Address: [address] [place] [address] Performed By: #### 2 4323-8 ####[facility] LABCLIA [id number] [place] [address] Calcium [Mass/Vol] 10.5 mg/dL High 8.5-10.2 [facility] Comment on above: Order Comment: Speci men Type: BLOOD SPECIMENOrdering Facility: [facility] Address: [address] [place] [address] Performed By: #### 2 4323-8 ####[facility] LABCLIA [id number] [place] [address] Chloride [Moles/Vol] 105 mmol/L Normal 97-105 [facility] Comment on above: Order Comment: Speci men Type: BLOOD SPECIMENOrdering Facility: [facility] Address: [address] [place] [address] Performed By: #### 2 4323-8 ####[facility] LABCLIA [id number] [place] [address] CO2 [Moles/Vol] 25 mmol/L Normal 22-30 [facility] Comment on above: Order Comment: Speci men Type: BLOOD SPECIMENOrdering Facility: [facility] Address: [address] [place] [address] Performed By: #### 2 4323-8 ####[facility] LABCLIA [id number] [place] [address] Creatinine [Mass/Vol] 1.35 mg/dL High 0.73-1.22 [facility] Comment on above: Order Comment: Speci men Type: BLOOD SPECIMENOrdering Facility: [facility] Address: [address] [place] [address] Performed By: #### 2 4323-8 ####[facility] LABCLIA [id number] [place] [address] Creatinine and Glomerular filtration rate.predicted panel (S/P/Bld) 59 mL/min/1.73m??? Low >=60 [facility] Comment on above: Order Comment: Speci men Type: BLOOD SPECIMENOrdering Facility: [facility] Address: [address] [place] [address] Result Comment: Alexandra mated Glomerular Filtration Rate [...] actual GFR. Performed By: #### 2 4323-8 ####[facility] LABCLIA [id number] [place] [address] Glucose [Mass/Vol] 105 mg/dL High 74-99 [facility] Comment on above: Order Comment: Speci men Type: BLOOD SPECIMENOrdering Facility: [facility] Address: [address] [place] [address] Result Comment: The [place] [employer] (ADA) provides guidance for cutoff [...] Standards of Medical Care in Diabetes 2016, [place] [employer]. Diabetes Care. 2016.39(Suppl 1). Performed By: #### 2 4323-8 ####[facility] LABCLIA [id number] [place] [address] Potassium [Moles/Vol] 4.3 mmol/L Normal 3.7-5.1 [facility] Comment on above: Order Comment: Tianna men Type: BLOOD SPECIMENOrdering Facility: [facility] Address: [address] [place] [address] Performed By: #### 2 4323-8 ####[facility] LABCLIA [id number] [place] [address] Protein [Mass/Vol] 7.4 g/dL Normal 6.3-8.0 [facility] Comment on above: Order Comment: Speci men Type: BLOOD SPECIMENOrdering Facility: [facility] Address: [address] [place] [address] Performed By: #### 2 4323-8 ####[facility] LABCLIA [id number] [place] [address] Sodium [Moles/Vol] 143 mmol/L Normal 136-144 [facility] Comment on above: Order Comment: Speci men Type: BLOOD SPECIMENOrdering Facility: [facility] Address: [address] [place] [address] Performed By: #### 2 4323-8 ####[facility] LABCLIA [id number] [place] [address] Urea nitrogen [Mass/Vol] 22 mg/dL Normal 9-24 [facility] Comment on above: Order Comment: Speci men Type: BLOOD SPECIMENOrdering Facility: [facility] Address: [address] [place] [address] Performed By: #### 2 4323-8 ####[facility] LABCLIA [id number] [place] [address] PT panel Coag (PPP)on 2023 INR Coag (PPP) [Relative time] 1.0 {INR} Normal 0.9-1.3 [facility] Comment on above: Order Comment: Speci men Type: BLOOD SPECIMENOrdering Facility: [facility] Address: [address] [place] [address] Result Comment: Yulia min K Antagonist (VKA) Therapeutic Range: INR 2 to 3 (Target INR of 2.5) Note: For patients treated with VKA drugs, such as warfarin, the [place] [employer] 2012 Guideline recommends [...] Chest 2012, 141:7S-47S Jaya RA, et al. [facility] 2017, 70: 252-289 Performed By: #### 3 4528-0, 47100-3 ####[facility] LABCLIA [id number] [place] [address] [place] PT Coag (PPP) [Time] 10.9 s Normal 9.7-13.0 [facility] Comment on above: Order Comment: Speci men Type: BLOOD SPECIMENOrdering Facility: [facility] Address: [address] [place] [address] Performed By: #### 3 4528-0, 37073-5 ####[facility] LABCLIA [id number] [address] [place] TYPE AND SCREEN,30 DAYon ABO O [facility] Comment on above: Order Comment: Speci men Type: BLOOD SPECIMENOrdering Facility: [facility] Address: [address] [place] [address] Performed By: #### T SCR30 ####CC [facility] BLOOD BANKCLIA [id number] [place] [address] [place] HISTORICAL AB SCR STATUS Negative [facility] Comment on above: Order Comment: Speci men Type: BLOOD SPECIMENOrdering Facility: [facility] Address: [address] [place] [address] Performed By: #### T SCR30 ####[facility] BLOOD BANKIA [id number] [address] [place] Rh Nom (Bld) Positive [facility] Comment on above: Order Comment: Speci men Type: BLOOD SPECIMENOrdering Facility: [facility] Address: [address] [place] [address] Performed By: #### T SCR30 ####[facility] BLOOD BANKCLIA [id number] [address] aPTT PPPon 01-03-2024 aPTT Coag (PPP) [Time] 27.9 s Normal 23.0-32.4 [facility] Comment on above: Order Comment: Speci men Type: BLOOD SPECIMENOrdering Facility: [facility] Address: [address] [place] [address] Result Comment: Froz en Plasma Aliquot Performed By: #### 3 4528-0, 56701-0 ####[facility] LABCLIA [id number] [address] CNOVon 12-21-2023 CNOV Office Visit (UROLMN ) ASHLEY LEDESMA ([id number]) 1960 M Date Time Provider Department 12/21/23 [...] bladder cancer, he is s/p TURBT in 2015 and has been undergoing surveillance cysto's which have been negative. Most recent cysto 11/10/22 negative, moderate trabeculation and most recent FISH/cytol 11/10/22 negative. PMH: BPH s/p TURP (2015), bladder cancer s/p TURBT (2015), gross hematuria, elevated PSA, sleep apnea, ED, [...] 11:10 AM (more content not included)... [facility] URINALYSIS, REFLEX MICROSCOP ICon 12-21-2023 Bilirubin Ql (U) Negative Normal Negative Claudia caruso [facility] Comment on above: Order Comment: Speci men Type: URINE SPECIMENOrdering Facility: [facility] Address: [address] [place] [address] Performed By: #### L [id number] ####[facility] LABCLIA [id number] [place] [id number] [place] Clarity (Unsp spec) Clear Normal Clear [facility] Comment on above: Order Comment: Speci men Type: URINE SPECIMENOrdering Facility: [facility] Address: [address] [phone] Performed By: #### L [id number] ####[facility] LABCLIA [id number] [place] [address] [place] Color (U) Light Yellow Normal Yellow [facility] Comment on above: Order Comment: Speci men Type: URINE SPECIMENOrdering Facility: [facility] Address: [address] [place] [address] Performed By: #### L [id number] ####[facility] LABIA [id number] [place] [address] [place] Glucose Test strip (U) [Mass/Vol] Negative Normal Trace, Negative [facility] Comment on above: Order Comment: Speci men Type: URINE SPECIMENOrdering Facility: [facility] Address: [address] [phone] Performed By: #### L [id number] ####[facility] LABIA [id number] [place] [address] [place] Hemoglobin Ql (U) Negative Normal Negative, Trace [facility] Comment on above: Order Comment: Speci men Type: URINE SPECIMENOrdering Facility: [facility] Address: [address] [id number] Performed By: #### L [id number] ####[facility] LABCLIA [id number] [place] [address] [place] Ketones Ql (U) Negative Normal Negative, Trace [facility] Comment on above: Order Comment: Speci men Type: URINE SPECIMENOrdering Facility: [facility] Address: [address] [id number] Performed By: #### L [id number] ####[facility] LABCLIA [id number] [place] [address] [place] Leukocyte esterase Test strip Ql (U) Negative Normal Negative, 25 Azalia/uL [facility] Comment on above: Order Comment: Speci men Type: URINE SPECIMENOrdering Facility: [facility] Address: [address] [place] [address] Performed By: #### L [id number] ####[facility] LABCLIA [id number] [place] [address] [place] Nitrite Ql (U) Negative Normal Negative [facility] Comment on above: Order Comment: Speci men Type: URINE SPECIMENOrdering Facility: [facility] Address: [address] [place] [address] Performed By: #### L [id number] ####[facility] LABIA [id number] [place] [address] [place] pH (U) 6.0 [pH] Normal 5.0-8.0 [facility] Comment on above: Order Comment: Speci men Type: URINE SPECIMENOrdering Facility: [facility] Address: [address] [place] [address] Performed By: #### L [id number] ####[facility] LABIA [id number] [place] [address] [place] Protein (U) [Mass/Vol] Negative Normal Trace, Negative [facility] Comment on above: Order Comment: Speci men Type: URINE SPECIMENOrdering Facility: [facility] Address: [address] [place] [address] Performed By: #### L [id number] ####[facility] LABIA [id number] [place] [address] [place] Specific gravity (U) [Rel density] 1.009 Normal 1.005-1.030 [facility] Comment on above: Order Comment: Speci men Type: URINE SPECIMENOrdering Facility: [facility] Address: [address] [place] [address] Performed By: #### L [id number] ####[facility] LABCLIA [id number] [place] [address] [place] Urobilinogen Ql (U) Negative Normal Negative [facility] Comment on above: Order Comment: Speci men Type: URINE SPECIMENOrdering Facility: [facility] Address: [address] [place] [address] Performed By: #### L [id number] ####[facility] LABCLIA [id number] [place] [address] [place] Lab Reportson 12-16-2023 Lab Reports [id number]#1.00TIFF Normal [facility] RAD - CT Reporton 12-16-2023 RAD - CT Report [id number]#1.00TIFF Normal [facility] RAD - CT Reporton 12-14-2023 RAD - CT Report [id number]#1.00TIFF Normal [facility] UroVysion Fish and Urine Cyt o ([facility])on 12-07-2023 UVFISH & UC Diagnosis Info Invalid Interpretation Code [facility] Comment on above: Result Comment: A:Ur ine,Urine:Voided [...] correlated with cytology and cystoscopy results.* CPT 27761, 35008. Microscopic Notes - Microscopic Notes - Abnormal cells 9p21 deletions: Abnormal cells aneploid events: Total cells analyzed: 84 Hematuria: Gross Description Site ID:A color Yellow fixative Alcohol Received 110 mls of clear yellow fluid with the patient's name and, Urine on the vial. Electronically signed by : on: 12/07/2023 08:46:27 Performed By: #### 1 [id number] ####[facility] [address] [place] [address] Consent for Procedure/Surger yon 12-01-2023 Consent for Procedure/Surgery [id number]#1.00TIFF Normal [facility] Ambulatory Visit Summaryon 0 11-30-2023 Ambulatory Visit Summary ASHLEY LEDESMA :1960 Visit Date:11/30/2023 Ambulatory Visit Instructions Your Diagnosis Gross hematuria Urinary retention Personal history of bladder cancer BPH with urinary obstruction Anticoagulated Erectile dysfunction Elevated PSA Other obstructive and reflux uropathy Your Care Team Attending Physician - ESTEFANI WILLIAMSON, Davey Hoover Primary Care Physician - Adan Lamar MD [...] Davey JARA MD Where: [facility] Saige Pisano [facility] Patient Educationon 11-30-19 24 Patient Education Urology [...] Follow these instructions at home: ? Take lfmn-hhh-heknedp and prescription medicines only as told by [...] the medicine (more content not included)... Normal [facility] UroVysion Fish and Urine Cyt o ([facility])on 11-30-2023 [facility] Method of Extraction Voided Normal [facility] Comment on above: Performed By: #### 1 [id number] ####[facility] [address] [place] [address] [facility] Number of Jars 1 Invalid Interpretation Code [facility] Comment on above: Performed By: #### 1 [id number] ####[facility] [address] [place] [address] [facility] Specimen Urine Normal [facility] Comment on above: Performed By: #### 1 [id number] ####[facility] [address] [place] [address] [facility] Type of Service Technical Only Normal [facility] Comment on above: Performed By: #### 1 [id number] ####[facility] [address] [place] [address] Urology Office/Clinic Noteon 11-30-2023 Urology Office/Clinic Note [...] get a CT scan done soon at [facility]. Will call pt with results. 2. Urinary retention (R33.9: Retention of urine, unspecified) Pt had called into the office on 11/23/23 stating he had gone to [facility] ER that morning due to not being [...] leaking. PVR 38 cc (at prior OV) [facility] ER Visit 11/23/23 - c/o retention, d/c [...] dose. Call for refills. 5. Anticoagulated (Z79.01: MCFP (current) use of anticoagulants) Takes 81 mg ASA daily. 6. Erectile dysfunction (N52.9: Male erect (more content not included)... Normal [facility] Comment on above: Result Comment: Elec tronically Signed By: Davey JARA MD\.br\Date and Time Signed: 11/30/23 14:10 EST\.br\Electronically Co-Signed By: Cristal Dunn.br\Date and Time Co-Signed: 11/30/23 14:08 EST Ambulatory Visit Summaryon 1 Ambulatory Visit Summary ASHLEY LEDESMA :1960 Visit Date:11/26/2023 Ambulatory Visit Instructions Your Care Team Attending Physician - ESTEFANI WILLIAMSON, Davey Hoover Primary Care Physician - Adan Lamar MD [...] WILLIAMSON, Davey Hoover Where: [facility] [address] [place] [id number] \.br\ Medications\. br\ What How Much When Why Instructions\ .br\ Unchanged allopurinol (allopurinol 100 mg Tab) 30 EA, TAKE 1 TABLET BY MOUTH EVERY DAY \.br\ Unchanged aspirin (aspirin 81 mg oral tablet) 1 Tablets By Mouth Every day\.br\ Unchanged multivitamin\ .br\ Unchanged sildenafil (sildenafil 100 mg Tab) 1 Tablets By Mouth As Directed Erectile dysfunction 1 hour before sexual activity \.br\ Unchanged tamsulosin (tamsulosin 0.4 mg Cap) 1 Capsules By Mouth Every day Duration: 30 Days\.br\ Unchanged terbinafine (terbinafine 250 mg Tab)\.br\ Unchanged vibegron (Gemtesa 75 mg oral tablet) 1 Tablets By Mouth Every day Duration: 90 Days\.br\ Allergies\.br \ No Known Allergies\.br \ Problems\.br\ Ongoing - Any problem that you are currently receiving treatment for.\.br\ Anticoagulate d\.br\ BMI 27.0-27.9,chi lt\.br\ BPH with urinary obstruction\. br\ Decreased sex drive\.br\ Eczema\.br\ Elevated PSA\.br\ Erectile dysfunction\. br\ Gout\.br\ Gross hematuria\.br \ Hemorrhoids\. br\ History of esophageal ulcer\.br\ Other membranous urethral stricture, male\.br\ Panic attack\.br\ Personal history of bladder cancer\.br\ Retinal hemorrhage\.b r\ Screen for colon cancer\.br\ Sleep apnea\.br\ Urinary retention\.br \ Urinary urgency\.br\ Historical - Any problem that you are no longer receiving treatment for.\.br\ Ulcer of esophagus\.br \ Patient Survey\.br\ You may receive a survey via text or e-mail asking about your office visit. Please share your experience with us by completing your survey. We appreciate your feedback and thank you for choosing us for your care.\.br\ \.br\ [facility] Provider Letteron 11-26-2023 Provider Letter (Inserted Image. Shannan ble to display) November 26, 2023 ASHLEY LEDESMA [address] [place] [address] : 1960 To Whom It May Concern, Please excuse above patient from work. Date of Illness: From: _11/23/23 To: _11/29/22 May Return to Work On:11/30/22 Restrictions: _None Sincerely, Dr. Davey Jara MD [facility] [address] [place] [address] Normal [facility] UroVysion Fish and Urine Cyt o ([facility])on 11-17-2023 UVFISH & UC Diagnosis Info Invalid Interpretation Code [facility] Comment on above: Result Comment: A:Ur ine,Urine:Voided [...] correlated with cytology and cystoscopy results.* CPT 78665, 86047 Microscopic Notes - Microscopic Notes - Abnormal cells 9p21 deletions: Abnormal cells aneploid events: Total cells analyzed: 36 Hematuria: Gross Description Site ID:A color Yellow fixative Alcohol Received 110 mls of clear yellow fluid with the patient's name and, Urine on the vial. Electronically signed by : on: 11/17/2023 08:51:00 Performed By: #### 1 [id number] ####[facility] [address] [place] [address] Screenson 11-12-2023 Screens [id number]#[id number] Normal [facility] Ambulatory Visit Summaryon 1 01-12-2023 Ambulatory Visit Summary ASHLEY LEDESMA :1960 Visit Date:11/11/2023 Ambulatory Visit Instructions Your Diagnosis BPH with urinary obstruction Gross hematuria Tests Performed Urnls Dip Stick Auto w/o Microscopy POC 70072 Your Care Team Attending Physician - COLLEEN Giraldo APRN, Jerica Ojeda Primary Care Physician - Adan [...] Davey JARA MD Where: [facility] C Urineon 11-11-2023 Bacteria identified Cx Nom (U) Microbiology PROCEDURE: Urine Culture [R1] SOURCE: U CleanCatch BODY SITE: COLLECTED DATE/TIME: 11/09/2023 13:20 EST RECEIVED DATE/TIME: 11/09/2023 17:34 EST START DATE/TIME: 11/09/2023 17:34 EST FREE TEXT SOURCE: RAI CHAPMAN PA-C, PA-C, JENNIFER E FINAL REPORTS Final Report [] Verified Date/Time: 11/11/2023 10:49 EST No growth at 2 days. Performing Locations R1: This test was performed at: [facility], [address] [place] [address], [address] , [place], [facility] Comment on above: Performed By: #### 2 [id number] ####[place] [address] Patient Educationon 11-11-20 23 Patient Education Urology Benign Prostatic Hyperplasia [...] Follow these instructions at home: ? Take dbvo-oxa-gwnyrbo and prescription medicines only as told by [...] the medicine (more content not included)... Normal [facility] UroVysion Fish and Urine Cyt o ([facility])on 11-11-2023 [facility] Method of Extraction Voided Normal [facility] Comment on above: Performed By: #### 1 [id number] ####[facility] [id number] [place] [address] [facility] Number of Jars 1 Invalid Interpretation Code [facility] Comment on above: Performed By: #### 1 [id number] ####[facility] [id number] [place] [address] [facility] Specimen Urine Normal [facility] Comment on above: Performed By: #### 1 [id number] ####[facility] [address] [place] [address] [facility] Type of Service Technical Only Normal [facility] Comment on above: Performed By: #### 1 [id number] ####[facility] [address] [place] [address] Urology Office/Clinic Noteon 11-11-2023 Urology Office/Clinic Note [...] Urine Cyto ([facility]) 3. Anticoagulated (Z79.01: MCFP (current) use of anticoagulants) Takes 81 mg [...] Urnls Dip Stick Auto w/o Microscopy POC 92617 UroVysion Fish and Urine Cyto ([facility]) [...] ultrasound (US) (more content not included)... Normal [facility] Comment on above: Result Comment: Elec tronically Signed By: COLLEEN Giraldo APRN, Jerica Ojeda\.br\Date and Time Signed: 11/11/23 10:15 EST Ambulatory Visit Summaryon 1 Ambulatory Visit Summary BALTAZARASHLEY :1960 Visit Date:09/24/2023 Ambulatory Visit Instructions Your Diagnosis Personal history of bladder cancer BPH with urinary obstruction Elevated PSA Erectile dysfunction Tests Performed Urnls Dip Stick Auto w/o Microscopy POC 26[address] Your Care Team Attending Physician - ESTEFANI WILLIAMSON, Davey Hoover Primary Care Physician - Adan Lamar MD [...] WILLIAMSON, Davey Hoover Where: [facility] Patient Educationon 10-27-20 23 Patient Education Oncology [...] Where to find more information ? [employer]: www.cancer.org ? [employer]: www.auanet.org Contact a health care [...] adds flu (more content not included)... Normal [facility] Urology Office/Clinic Noteon 09-24-2023 Urology Office/Clinic Note [...] w/ Gemtesa, states it is affordable through [employer] if it's a 90 day supply. -Call [...] current dosage. -Refill sent to [facility] in [place] due to cost Follow-up With When Contact Information ESTEFANI WILLIAMSON, Davey Hoover, [address] [place] [address]- Additional Instructions: 1 year w/ PSA Patient [...] Use, 09/11/2019 (more content not included)... Normal [facility] Comment on above: Result Comment: Elec tronically Signed By: Davey JARA MD\.br\Date and Time Signed: 09/24/23 08:51 EDT\.br\Electronically Co-Signed By: Corrie Mendoza.br\Date and Time Co-Signed: 09/24/23 08:49 EDT Consent Formson 07-12-2023 Consent Forms [id number] Normal [facility] Lipid Panel Standardon 07-08 Cholesterol [Mass/Vol] 216.0 mg/dL High 66.0-200.0 [facility] Comment on above: Performed By: #### 1 [id number], [id number] #### [facility] (DEFAULT) [address] [place] [address] Cholesterol in HDL [Mass/Vol] 74 mg/dL High 40-71 [facility] Comment on above: Performed By: #### 1 [id number], [id number] #### [facility] (DEFAULT) [address] [place] [address] Cholesterol in LDL [Mass/Vol] 120 mg/dL High 1-100 [facility] Comment on above: Performed By: #### 1 [id number], [id number] #### [facility] (DEFAULT) [address] [place] [address] Cholesterol.total /Cholesterol in HDL [Mass ratio] 2.8 {ratio} Normal 0.0-4.5 [facility] Comment on above: Performed By: #### 1 [id number], [id number] #### [facility] (DEFAULT) [address] [place] [address] Triglyceride [Mass/Vol] 105.0 mg/dL Normal 0.0-150.0 [facility] Comment on above: Performed By: #### 1 [id number], [id number] #### [facility] (DEFAULT) [address] [place] [address] VLDL. 21 mg/dL Normal 5-40 [facility] Comment on above: Performed By: #### 1 [id number], [id number] #### [facility] (DEFAULT) [address] [place] [address] PSA Screenon 07-08-2023 PSA Screen 3.42 ng/mL Normal 0.00-4.00 [facility] Comment on above: Result Comment: [employer] DxI Synchron Baihe Clinical System (Chemiluminescence) Values obtained with different assay methods or kits cannot be used interchangeably. Results cannot be interpreted as absolute evidence of the presence or absence of malignant disease. Performed By: #### 1 [id number], [id number] #### [facility] (DEFAULT) [address] [place] [address] TESTOSTERONE, TOTALon 2020 Testosterone [Mass/Vol] 340 ng/dL Normal 264-916 [facility] Comment on above: Result Comment: Adul t male reference interval is based on a population of healthy nonobese males (BMI <30) between 19 and 39 years old. Blue, et.al. JCEM 2017,102;4532-7087. PMID: [id number]. Performed By: #### T ESTTOT #### [facility] [address] [place], [place] [address] Yusef Noel COVID-19 PCRon 08-20-2020 SARS-CoV-2, [place] Not Detected Normal Not Detected [facility] Comment on above: Result Comment: This nucleic acid amplification test was developed and its performance characteristics determined by [facility]. Nucleic acid amplification tests include PCR and [...] assay. Performed By: #### C VDPCR #### [facility] [address] [place] [address] Yusef Noel COVID-19 PCRon 08-10-2020 SARS-CoV-2, [place] Not Detected Normal Not Detected [facility] Comment on above: Result Comment: This nucleic acid amplification test was developed and its performance characteristics determined by [facility]. Nucleic acid amplification tests include PCR and [...] assay. Performed By: #### C VDPCR #### [facility] [address] [place] [address] Yusef Noel FOOT RIGHT 3 [facility] 7 FOOT RIGHT 3 [facility] [address] [place] [id number] Patient Name: ASHLEY LEDESMA : 1960Sex: MAge: Race: WhiteMRN: [id number]. Location: 84Patient Status: Date: 08/19/2017 12:45:00 PMCompleted Date: 08/19/2017 12:47 PMRequesting Provider: MARYLIN SARGENT Attending Provider: Report Copy To: Signs & Symptoms: S92.421D Disp fx of dist phalanx of r great toe, 7thD H90Fjtatzy: AthenaComments: , , , Ordering Provider - MARYLIN SARGENT PA-C , Exam: FOOT RIGHT 3 VWSAccession #: [id number] ELLEN T RIGHT 3 VWS 08/19/2017 12:47 [...] Electronically signed by:Blake Mclean M.D.. Transcribed by: [email or web address], User Resident: Electronically Signed by: BLAKE MCLEAN @ 08/19/2017 04:09 PM Normal [facility] Comment on above: Order Comment: , , = ========= , Ordering Provider - MARYLIN SARGENT PA-C , Vital Signs Date Time Vital Sign Value Performing Clinician Facility 06-07-2024 11:24-0400 Body height 177.8 cm Jayne Silveira MD Work Phone: [facility] 06-07-2024 11:24-0400 Body mass index (BMI) [Ratio] 26.73 kg/m2 Jayne Silveira MD Work Phone: [facility] 06-07-2024 11:24-0400 Body weight 84.5 kg Jayne Silveira MD Work Phone: [facility] 06-07-2024 11:24-0400 Diastolic blood pressure 87 mm[Hg] Jayne Silveira MD Work Phone: [facility] 06-07-2024 11:24-0400 Heart rate 74 /min Jayne Silveira MD Work Phone: [facility] 06-07-2024 11:24-0400 Systolic blood pressure 165 mm[Hg] Jayne Silveira MD Work Phone: [facility] 03-24-2024 08:11-0400 Body height 177.8 cm Jayne Silveira MD Work Phone: [facility] 03-24-2024 08:11-0400 Body mass index (BMI) [Ratio] 26.44 kg/m2 Jayne Silveira MD Work Phone: [facility] 03-24-2024 08:11-0400 Body temperature 97.7 [degF] Jayne Silveira MD Work Phone: [facility] 03-24-2024 08:11-0400 Body weight 83.6 kg Jayne Silveira MD Work Phone: [facility] 03-24-2024 08:11-0400 Diastolic blood pressure 81 mm[Hg] Jayne Silveira MD Work Phone: [facility] 03-24-2024 08:11-0400 Heart rate 67 /min Jayne Silveira MD Work Phone: [facility] 03-24-2024 08:11-0400 Systolic blood pressure 156 mm[Hg] Jayne Silveira MD Work Phone: [facility] 01-05-2024 10:25-0500 Body height 177.8 cm Pacc 7 Work Phone: [facility] 01-05-2024 10:25-0500 Body temperature 97.39 [degF] Pacc 7 Work Phone: [facility] 01-05-2024 10:25-0500 Body weight 85.5 kg Pacc 7 Work Phone: [facility] 01-05-2024 10:25-0500 Diastolic blood pressure 84 mm[Hg] Pacc 7 Work Phone: [facility] 01-05-2024 10:25-0500 Heart rate 69 /min Pacc 7 Work Phone: [facility] 01-05-2024 10:25-0500 SaO2% (BldA) [Mass fraction] 99 % Pacc 7 Work Phone: [facility] 01-05-2024 10:25-0500 Systolic blood pressure 145 mm[Hg] Pacc 7 Work Phone: [facility] 09-24-2023 08:16-0400 Blood Pressure Location Davey JARA [facility] 09-24-2023 08:16-0400 Diastolic blood pressure 87 mm[Hg] Davey JARA [facility] 09-24-2023 08:16-0400 Heart rate 68 /min Davey JARA [facility] 09-24-2023 08:16-0400 Respiratory rate 16 /min Davey JARA [facility] 09-24-2023 08:16-0400 Systolic blood pressure 133 mm[Hg] Davye JARA [facility] 07-12-2023 14:06-0400 Blood Pressure Location Garimarenae Eastman [facility] 07-12-2023 14:06-0400 Body temperature 97.16 [degF] Garima Lindseymetz [facility] 07-12-2023 14:06-0400 Diastolic blood pressure 84 mm[Hg] Garima Lindseymetz [facility] 07-12-2023 14:06-0400 Heart rate 72 /min Garima Lindseymetz [facility] 07-12-2023 14:06-0400 Systolic blood pressure 137 mm[Hg] Garima Lindseymetz [facility] 05-05-2023 08:17-0400 Diastolic blood pressure 80 mm[Hg] Delgado SALAM [facility] 05-05-2023 08:17-0400 Mean blood pressure 105 mm[Hg] Delgado SALAM [facility] 05-05-2023 08:17-0400 Systolic blood pressure 154 mm[Hg] Delgado SALAM [facility] 05-05-2023 08:15-0400 Blood Pressure Location Delgado SALAM [facility] 05-05-2023 08:15-0400 Diastolic blood pressure 80 mm[Hg] Delgado SALAM [facility] 05-05-2023 08:15-0400 Heart rate 79 /min Delgado SALAM [facility] 05-05-2023 08:15-0400 Respiratory rate 16 /min Delgado SALAM [facility] 05-05-2023 08:15-0400 Systolic blood pressure 154 mm[Hg] Delgado SALAM [facility] 02-18-2023 19:14-0400 Heart rate 67 /min [facility] 02-18-2023 19:14-0400 SaO2% (BldA) [Mass fraction] 99 % [facility] 02-18-2023 19:14-0400 Respiratory rate 16 /min [facility] 02-18-2023 19:14-0400 Diastolic blood pressure 89 mm[Hg] [facility] 02-18-2023 19:14-0400 Mean blood pressure 115 mm[Hg] [facility] 02-18-2023 19:14-0400 Systolic blood pressure 166 mm[Hg] [facility] 02-18-2023 19:14-0400 Body temperature 97.7 [degF] [facility] 02-18-2023 18:15-0400 Heart rate 62 /min [facility] 02-18-2023 18:15-0400 SaO2% (BldA) [Mass fraction] 98 % [facility] 02-18-2023 18:14-0400 Respiratory rate 16 /min [facility] 02-18-2023 18:14-0400 Diastolic blood pressure 87 mm[Hg] [facility] 02-18-2023 18:14-0400 Mean blood pressure 112 mm[Hg] [facility] 02-18-2023 18:14-0400 Systolic blood pressure 160 mm[Hg] [facility] 02-18-2023 18:14-0400 Body temperature 97.7 [degF] [facility] 02-18-2023 17:07-0400 Heart rate 61 /min [facility] 02-18-2023 17:07-0400 SaO2% (BldA) [Mass fraction] 98 % [facility] 02-18-2023 17:07-0400 Respiratory rate 18 /min [facility] 02-18-2023 17:07-0400 Diastolic blood pressure 83 mm[Hg] [facility] 02-18-2023 17:07-0400 Mean blood pressure 103 mm[Hg] [facility] 02-18-2023 17:07-0400 Systolic blood pressure 144 mm[Hg] [facility] 02-18-2023 17:07-0400 Body temperature 98.06 [degF] [facility] 02-18-2023 15:51-0400 Mean blood pressure 96 mm[Hg] [facility] 02-18-2023 15:51-0400 Respiratory rate 20 /min [facility] 02-18-2023 15:40-0400 Mean blood pressure 80 mm[Hg] [facility] 02-18-2023 15:40-0400 Respiratory rate 15 /min [facility] 02-18-2023 15:35-0400 Mean blood pressure 79 mm[Hg] [facility] 02-18-2023 15:35-0400 Respiratory rate 16 /min [facility] 02-18-2023 14:34-0400 Blood Pressure Location [facility] 02-18-2023 13:50-0400 Body temperature 98.06 [degF] [facility] 02-18-2023 13:50-0400 Heart rate 78 /min [facility] Encounters Encounter Date Encounter Type Care Provider Facility Start: 08-09-2024 End: 08-09-2024 ambulatory Gato Banda MD Work Phone: Gastroenterology Comment on above: Cyst of pancreas (Pr imary Dx) Start: 08-09-2024 End: 08-09-2024 Telemedicine consultation with patient Gato Banda MD Work Phone: Gastroenterology Start: 06-16-2024 End: 06-16-2024 ambulatory [facility] Facility:[facility] Start: 06-07-2024 End: 06-07-2024 ambulatory Jayne Silveira MD Work Phone: [facility] Start: 06-07-2024 End: 06-07-2024 Patient encounter procedure Jayne Silveira MD Work Phone: [facility] Comment on above: Stage 3b chronic kid eduardo disease (HCC) (Primary Dx); H/O left nephrectomy Start: 04-26-2024 End: 04-26-2024 ambulatory JADA SANTO Facility:[facility] Start: 04-26-2024 End: 04-26-2024 Follow-up encounter Jada Santo APRN.CNP Work Phone: Urology Comment on above: Encounter for follow -up surveillance of kidney cancer (Primary Dx); History of renal cell cancer; H/O left nephrectomy; Stage 3a chronic kidney disease (HCC); Pancreatic cyst Start: 04-26-2024 End: 04-26-2024 Telemedicine consultation with patient Jada Santo APRN.CNP Work Phone: Urology Start: 04-25-2024 ambulatory [facility] Facility: [facility] Start: 04-25-2024 End: 04-25-2024 Subsequent hospital visit by physician [facility] ([facility] Work Phone: [facility] Radiology CT Scan Comment on above: Renal cell carcinoma of left kidney (HCC) [C64.2] Start: 04-11-2024 Orders Only Jayne pegueor MD Work Phone: [facility] Start: 03-24-2024 End: 03-24-2024 ambulatory Jayne Silveira MD Work Phone: [facility] Start: 03-24-2024 End: 03-24-2024 Patient encounter procedure Jayne Silveira MD Work Phone: [facility] Comment on above: H/O left nephrectomy ; Stage 3b chronic kidney disease (HCC) Start: 01-25-2024 End: 01-25-2024 ambulatory Charlotte Lindsey MD Work Phone: Urology Comment on above: Renal cell carcinoma of left kidney (HCC) (Primary Dx); H/O left nephrectomy; Stage 3b chronic kidney disease (HCC) Start: 01-25-2024 End: 01-25-2024 Telemedicine consultation with patient Charlotte Lindsey MD Work Phone: [facility] Start: 01-14-2024 Telephone encounter Adan Lamar MD Work Phone: noc Comment on above: Follow Up Phone Call (All Clear) Start: 01-11-2024 Telephone encounter Neela Tang Urological & Comment on above: Returning Patient's Call Start: 01-06-2024 End: 01-09-2024 Evaluation and management of inpatient CHARLOTTE LINDSEY Facility:[facility] Start: 01-05-2024 End: 01-05-2024 Subsequent hospital visit by physician Spectct3 Work Phone: Molecular Imaging Comment on above: Acquired cyst of kid eduardo [N28.1] Start: 01-05-2024 End: 01-05-2024 Admission to establishment Pac Main 7 Work Phone: [facility] Start: 01-05-2024 End: 01-05-2024 ambulatory Pacc Main 7 Work Phone: Pre Anesthesia Comment on above: Pre-op evaluation (P rimary Dx) Start: 01-05-2024 End: 01-05-2024 Preprocedural examination done [place] [id number] Work Phone: [facility] Work Phone: Start: 01-05-2024 Encounter for other preprocedural examination ADAN [facility] Start: 01-05-2024 End: 01-05-2024 ambulatory ADAN LAMAR Facility:[facility] Start: 01-04-2024 End: 01-04-2024 ambulatory JONNY ARNETT Facility:[facility] Start: 01-03-2024 End: 01-03-2024 ambulatory JONNY ABDIEL ARNETT Facility:[facility] Start: 12-21-2023 End: 12-21-2023 Patient encounter procedure Charlotte Lindsey MD Work Phone: Urology Comment on above: Renal mass (Primary Dx); Gross hematuria; Other specified disorders of kidney and ureter; 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); Acquired cyst of kidney Start: 12-21-2023 End: 12-21-2023 ambulatory CHARLOTTE LINDSEY Facility:[facility] Start: 11-30-2023 End: 11-30-2023 ambulatory Davey JARA Facility:[facility] Start: 11-30-2023 End: 11-30-2023 Lab Drop off Davey JARA [facility] Start: 11-30-2023 End: 11-30-2023 ambulatory Davey JARA Facility:[facility] Start: 11-30-2023 End: 11-30-2023 Patient encounter procedure Davey JARA [facility] Start: 11-26-2023 End: 11-26-2023 ambulatory Davey JARA [facility] Start: 11-26-2023 End: 11-26-2023 Patient encounter procedure Davey JARA [facility] Start: 11-24-2023 End: 11-24-2023 ambulatory AMRIK MUNROE Not Available Start: 11-11-2023 End: 11-11-2023 ambulatory Jerica X Orzech Facility:[facility] Start: 11-11-2023 End: 11-11-2023 ambulatory Jerica X Orzech Facility:[facility] Start: 11-09-2023 End: 11-09-2023 ambulatory RAI CHAPMAN Facility:[facility] Start: 11-09-2023 End: 11-09-2023 Lab Drop off RAI CHAPMAN [facility] Start: 11-08-2023 End: 11-08-2023 ambulatory Davey JARA Facility:[facility] Start: 11-08-2023 End: 11-08-2023 Patient encounter procedure Davey JARA [facility] Start: 09-24-2023 End: 09-24-2023 ambulatory Davey JARA Facility:[facility] Start: 09-24-2023 End: 09-24-2023 Patient encounter procedure [facility] JARA [facility] Start: 07-12-2023 End: 07-12-2023 Patient encounter procedure Garima Eastman [facility] Start: 07-08-2023 End: 07-09-2023 ambulatory ADAN Roxann Facility:[facility] Start: 05-05-2023 End: 05-05-2023 Patient encounter procedure Danny CONTRERAS [facility] Start: 02-18-2023 End: 02-18-2023 Emergency department patient visit Kenji Avalos [facility] Start: 01-22-2021 End: 01-23-2021 Patient encounter procedure ADAN LAMAR Facility:[facility] Start: 08-19-2020 End: 08-20-2020 Patient encounter procedure ADAN LAMAR Facility:[facility] Start: 08-09-2020 End: 08-10-2020 Patient encounter procedure DANICA MUNROE Facility: Start: 08-19-2017 End: 08-20-2017 Ambulatory MARYLIN SARGENT Facility:[facility] Procedures Date Procedure Procedure Detail Performing Clinician Start: 06-07-2024 Creatinine other source Jayne Silveira MD Work Phone: Start: 06-07-2024 Urnls dip stick/tablet rgnt auto w/o microscopy Bulk Order Provider Start: 04-25-2024 Mri abdomen w/o & w/contrast material Jada Warminski [employer]ANCE [employer] OPERATOR Work Phone: Start: 04-25-2024 Ct thorax w/o contrast material Jada W arminski [employer] REPA[employer] SUR[employer]ILLANCE SYSTEMS OPERATOR Work Phone: Start: 03-24-2024 Urnls dip stick/tablet rgnt auto w/o microscopy Bulk Order Provider Start: 01-05-2024 Kidney img morphology vascular flow 1 w/o rx Jonny Arnett MD Work Phone: Start: 01-03-2024 Antibody screen ADAN LAMAR Comment on above: Order Comment: Specimen Type: BLOOD SPEC IMENOrdering Facility: [facility] Address: [address] [place] [address] Performed By: #### T [id number] ####CC MAIN BLOOD BANKCLIA [id number] [place] [address] [place] Start: 06-18-2023 Colonoscopy Garima Eastman Start: 06-18-2023 Esophagogastroduodenoscopy Garima qureshi Start: 11-10-2022 Transurethral cystoscopy Davey JARA Start: 11-19-2020 Cystoscope, device (physical object) Kenji Clementsbeverly Start: 10-31-2019 cysto Ailynlucy Clementsbeverly Start: 08-22-2019 Transrectal biopsy of prostate using ultrasound guidance Kenji Juan Carlosbeverly Start: 11-08-2018 Cystoscopy Kenji Juan Carlosbeverly Start: 01-10-2015 Cystoscopy and transurethral biopsy of bladder Kenji Avalos Start: 01-10-2015 Transurethral prostatectomy Kenji guevara Start: 12-17-2014 Cystoscopy Kenji Avalos Comment on above: 07/01/15, 10/21/15, 01/21/16, 05/05/16, 11/17, 11/09/17, 11/08/18 Start: 12-05-2014 Urodynamic studies Kenji Avalos Colonoscopy Kenji Avalos Cystoscopy Kenji Avalos Nose - repair or plastic operation Delgado BEN Tonsillectomy Kenji Avalos Plan of Treatment Date Care Activity Detail Author Start: 03-24-2027 Diabetes Screening Diabetes Screening [facility] Start: 01-09-2027 Diabetes Screening Diabetes Screening [facility] Start: 01-03-2027 Diabetes Screening Diabetes Screening [facility] Start: 06-16-2025 Creatinine measurement Serum Creatinine [facility] Start: 06-07-2025 Creatinine measurement Serum Creatinine [facility] Start: 03-24-2025 Complete blood count Hemoglobin/Hematocrit [facility] Start: 03-24-2025 Creatinine measurement Serum Creatinine [facility] Start: 11-03-2024 End: 11-03-2024 ambulatory 11/03/2024 1:30 PM [facility] [address] [place] [id number] Miya Amaya MD [address] [place] [address] 6 month VV for a read per [facility] chart Urology Comment on above: 6 month VV for a read per cc chart Start: 11-01-2024 End: 11-01-2024 ambulatory 11/01/2024 10:[address] [facility] [address] [address] Jada Santo APRN.[employer] OPERATOR [address] [place] [address] 6 month VV for a read per cc chart Urology Comment on above: 6 month VV for a read per cc chart Start: 10-27-2024 End: 01-26-2025 Comprehensive metabolic 2000 panel - Serum or Plasma COMPREHENSIVE METABOLIC PANEL Lab Routine History of renal cell cancer Expected: 10/27/2024 (Approximate), Expires: 01/26/2025 [facility] Work Phone: Comment on above: Expected: 10/27/2024 (Approximate), Expi res: 01/26/2025 Start: 10-27-2024 End: 10-27-2024 Patient encounter procedure [facility] Radiology CT Scan Comment on above: CT CHEST WO IVCON MRI ABDOMEN WO/W IVC ON COMPREHENSIVE METABO LIC PANEL Start: 10-13-2024 End: 10-13-2024 Patient encounter procedure 10/13/2024 11:40 AM EST Office Visit Kidney [facility] [address] [id number] Jayne Silveira MD [address] [place] [address] Return in 4 months [facility] Comment on above: Return in 4 months Start: 09-29-2024 ambulatory Ambulatory Facility:[facility] Start: 08-09-2024 End: 08-09-2024 ambulatory 08/09/2024 10:[address] [facility] [address] [address] Gato Banda MD [address] [id number] [facility] Comment on above: [facility]ST Start: 07-30-2024 Covid-19 Vaccine () Covid-19 Vaccine () [facility] Start: 07-30-2024 Influenza vaccination Influenza Vaccine (#1) [facility] Start: 06-07-2024 End: 06-07-2024 Patient encounter procedure 06/07/2024 11:40 AM EDT Office Visit Kid[facility] [address] [address] Jayne Silveira MD [address] [place] [address] CKD [facility] Comment on above: CKD Start: 2024 Advance Directive Discussion Advance Directive Discussion [facility] Start: 2024 Pneumococcal Vaccine: 65+ (1 of 1 - PCV) Pneumococcal Vaccine: 65+ (1 of 1 - PCV) [facility] Start: 04-26-2024 End: 04-26-2024 ambulatory 04/26/2024 2:[address] [facility] [address] [address] Jada Santo APRN.[employer] OPERATOR [address] [place] [address] 3 month f/u RCC per [facility] Chart Urology Comment on above: 3 month f/u RCC per [facility] Chart Start: 04-25-2024 End: 04-25-2024 Patient encounter procedure [facility] Radiology CT Scan Comment on above: CT CHEST WO IVCON COMP METABOLIC PANEL MRI ABDOMEN WO/W IVC ON Start: 04-24-2024 End: 07-24-2024 Comprehensive metabolic 2000 panel - Serum or Plasma COMP METABOLIC PANEL Lab Routine Renal cell carcinoma of left kidney (HCC) H/O left nephrectomy Expected: 04/24/2024 (Approximate), Expires: 07/24/2024 [facility] Work Phone: Comment on above: Expected: 04/24/2024 (Approximate), Expi res: 07/24/2024 Start: 01-18-2024 Covid-19 Vaccine ( season) Covid-19 Vaccine () [facility] Start: 11-29-2023 Behavioral Health Screening Behavioral Health Screening [facility] Start: 11-29-2023 Depression Assessment Depression Assessment [facility] Start: 2019 RSV Vaccine (1 - 1-dose 60+ series) RSV Vaccine (1 - 1-dose 60+ series) [facility] Start: 2014 Prostate specific antigen measurement Prostate Cancer Screening Discussion [facility] Start: 2004 Screening for malignant neoplasm of colon [facility] Start: 1994 Lipid panel Lipid Screening [facility] Start: 1978 Urine microalbumin profile DTaP,Tdap,Td Vaccine (1 - Tdap) [facility] Start: 1977 Annual PCP Team Chronic Disease Visit Annual PCP Team Chronic Disease Visit [facility] Start: 1977 Anxiety Screening Anxiety Screening [facility] Start: 1977 Depression Screening Depression Screening [facility] Start: 1977 Hepatitis C screening Hepatitis C Screening [facility] Start: 1977 HIV screening HIV Screening [facility] Start: 1959 Abdominal aortic aneurysm screening Abdominal Aortic Aneurysm Screening [facility] End: 02-23-2025 CT Chest WO contrast CT CHEST WO IVCON Radiology Routine Renal cell carcinoma of left kidney (HCC) 1 Occurrences starting 01/25/2024 until 02/23/2025 [facility] Work Phone: Comment on above: 1 Occurrences starting 01/25/2024 until 02/23/2025 End: 05-26-2025 CT Chest WO contrast CT CHEST WO IVCON Radiology Routine History of renal cell cancer 1 Occurrences starting 04/26/2024 until 05/26/2025 [facility] Comment on above: 1 Occurrences starting 04/26/2024 until 05/26/2025 End: 12-21-2024 ECG COMPLETE ECG COMPLETE ECG Routine Renal mass Gross hematuria Other specified disorders of kidney and ureter 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) 1 Occurrences starting 12/21/2023 until 12/21/2024 [facility] Work Phone: Comment on above: 1 Occurrences starting 12/21/2023 until 12/21/2024 End: 02-23-2025 MR Abdomen WO and W contrast IV MRI ABDOMEN WO/W IVCON Radiology Routine Renal cell carcinoma of left kidney (HCC) 1 Occurrences starting 01/25/2024 until 02/23/2025 [facility] Work Phone: Comment on above: 1 Occurrences starting 01/25/2024 until 02/23/2025 End: 05-26-2025 MR Abdomen WO and W contrast IV MRI ABDOMEN WO/W IVCON Radiology Routine History of renal cell cancer 1 Occurrences starting 04/26/2024 until 05/26/2025 [facility] Comment on above: 1 Occurrences starting 04/26/2024 until 05/26/2025 End: 06-07-2025 Renal function 2000 panel - Serum or Plasma RENAL FUNCTION PANEL Lab Routine Stage 3b chronic kidney disease (HCC) H/O left nephrectomy Once per week for 4 Occurrences starting 06/07/2024 until 06/07/2025, 1 completed [facility] Work Phone: Comment on above: Once per week for 4 Occurrences starting 06/07/2024 until 06/07/2025, 1 completed [facility] Immunizations Immunization Date Immunization Notes Care Provider [facility] 09-17-2023 influenza virus vaccine, unspecified formulation Davey ESTEFANI [facility] 01-04-2023 zoster vaccine recombinant Delgado SALAM [facility] 10-24-2022 zoster vaccine recombinant Delgado SALAM [facility] 09-18-2022 influenza virus vaccine, unspecified formulation Kenji Avalos [facility] 09-18-2022 SARS-CoV-2 (COVID-19 ) [id number] Kenji Avalos [facility] 09-26-2021 SARS-CoV-2 (COVID-19 ) mRNA BNT-162b2 vax Kenji Avalos [facility] 09-01-2021 influenza virus vaccine, unspecified formulation Kenji Avalos [facility] 03-17-2021 SARS-CoV-2 (COVID-19 ) mRNA BNT-162b2 vax [facility] 02-20-2021 SARS-CoV-2 (COVID-19 ) mRNA BNT-162b2 vax [facility] 09-09-2020 influenza virus vaccine, unspecified formulation [facility] 09-02-2020 influenza virus vaccine, unspecified formulation [facility] 09-13-2019 influenza virus vaccine, unspecified formulation [facility] 09-20-2018 influenza virus vaccine, unspecified formulation [facility] 09-06-2017 influenza, unspecifi ed formulation [facility] 09-18-2015 influenza virus vaccine, unspecified formulation [facility] 08-28-2014 influenza virus vaccine, unspecified formulation [facility] 09-04-2010 influenza virus vaccine, unspecified formulation [facility] 07-03-2010 hepatitis A and hepatitis B vaccine [facility] 01-30-2010 hepatitis A and hepatitis B vaccine [facility] 01-02-2010 hepatitis A and hepatitis B vaccine [facility] Payers Date Payer Category Payer Medicare MEDICARE MEDICAR E A AND B [id number] 2024-Present [phone] [place] [address] Medicare [id number] 2024 Medicare [id number] 2023 Unknown [id number] 2021 Unknown [id number]. [id number] 1959 Unknown [id number] 1959 Unknown [id number] 3 1959 Unknown [id number] [id number] 3 1959 Unknown [id number] 2.16.840.1.588079.3.579.2.59 3 1959 Unknown [id number] 2.16.840.1.464413.3.579.2.12 59 1959 Unknown [id number] 2.16.840.1.040801.3.579.2.72 7 1959 Unknown [id number] 2.16.840.1.938420.3.579.2.72 7 1959 Unknown [id number] 2.16.840.1.625376.3.579.2.72 7 1959 Unknown [id number] 2.16.840.1.428340.3.579.2.72 7 1959 Unknown [id number] 2.16.840.1.067445.3.579.2.72 7 1959 Unknown [id number] 2.16.840.1.162613.3.579.2.72 7 1959 Unknown [id number] 2.16.840.1.600707.3.579.2.72 7 1959 Unknown [id number] 2.16.840.1.183011.3.579.2.72 7 1959 Unknown [id number] [id number] 7 Worker's Compensation [id number] Social History Date Type Detail Facility Start: 02-18-2023 End: 03-24-2024 Tobacco smoking status Ex-smoker (finding) [facility] Start: 12-21-2023 End: 01-05-2024 Sex Assigned At Male [facility] Start: 11-11-2023 Tobacco smoking status Never [facility] History of tobacco use Current smoker [facility] History of tobacco use Cigarette Smoker [facility] Start: 01-05-2024 End: 03-24-2024 Tobacco use and exposure Smokeless tobacco non-user [facility] Start: 01-05-2024 End: 06-07-2024 Alcohol intake Current drinker of alcohol (finding) [facility] Start: 12-21-2023 End: 01-05-2024 History of Social function [facility] Start: 01-05-2024 Tobacco Comment Been over 30 y ears since had a cigarette [facility] Start: 01-05-2024 Alcohol Comment may have a dri nk 2x per week [facility] Start: 1960 Sex Assigned At Not on file [facility] Tobacco smoking status NHIS Tobacco smoking consumption unknown [facility] Work Phone: Start: 1960 Sex Assigned At Male [facility] Start: 04-18-2024 Gender identity Identifies as male gender (finding) [facility] NEGATED: Highlighted rowStart: NINF History of tobacco use Passive smoker [facility] Medical Equipment Procedure Code Equipment Code [...] 11-30-2023 Functional Status N/A [facility] [place]acia 09-24-2023 Functional Status N/A [facility] Saige 07-12-2023 Functional Status N/A [facility] 05-05-2023 Functional Status N/A [facility] 02-18-2023 Functional Status N/A [facility] Clinical Notes 02-18-2023 to 08-09-2024 Gato Banda MD - 08/09/2024 10:00 AM EDTPatient InstructionsJayne Silveira MD - 06/07/2024 11:55 AM Jada Beckford APRN.[facility] - 04/26/2024 2:30 PM EDTPatient Instructions Note Date & Type Note Facility 08-09-2024 History of Present illness Narrative VIRTUAL VISIT PROGRESS NOTE This is a virtual visit using [employer] Video Visit. It required patient-provider interaction for the medical decision making as documented below. I have communicated my name and active licensure. The patient's identity and physical location were verified at the time of this visit. Either the patient or their legal corporate representative has been informed of the risks and benefits of -- and alternatives to -- treatment through a remote evaluation and consents to proceed with the evaluation remotely. Ashley Ledesma is a 64-year-old male who is being seen for follow up of pancreatic cysts. 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 Overall these are unchanged from imaging obtained in December 2023. A pancreatic tail cyst measured eighteen by eighteen millimeters. A multi septated pancreatic neck cyst measured fifteen by 9mm. And a multi septated pancreatic head cyst measured ten by 7mm. All of these were previously slightly larger in size. The pancreatic duct itself was normal. Presently Discussion - Pancreatic Cyst - Medications: allopurinol, lisinopril, Flomax, and gemtesa No known drug allergies Past medical history: obstructive sleep apnea, stage 3B chronic kidney disease, history esophageal ulcer, benign prostatic hypertrophy, renal cell carcinoma status post left nephrectomy. HISTORY REVIEWED (electronic chart updated): No past [...] No Known Allergies REVIEW OF SYSTEMS: GENERAL: feeling well without fatigue, no recent change in weight ASSESSMENT: No diagnosis found. PLAN: Assessment and plan: 64-year-old male with multiple cysts consistent with IPMNs There are no high-risk features noted. The cysts exhibit at least two over the size of fifteen millimeters however they are stable in size. I am recommending another MRI in two years. We can follow with the urological imaging as needed. There are no Patient Instructions on file for this visit. I spent a total of 31 minutes on the date of the service which included preparing to see the patient and [id number] patient care Answers submitted by the patient for this visit: Review of Systems Gastroenterology (Submitted on 08/03/2024) Fever: No Chills: No Night Sweats: No Unitentional Weight Change: No A Cough: No Difficulty Breathing: No Chest Pain: No Belly pain: No A feeling of fullness or have belly pain after eating: No Food getting stuck in your throat or chest after eating: No Nausea - that is, a feeling like you could vomit: No Regurgitation - that is, food or liquid coming back up into your throat or mouth without vomiting, or feel burning behind your breast bone: No Loss of appetite: No To throw up or vomit: No Blood in your stools: No Black tarry stools: No Loose or watery stools: No The feeling like you need to empty your bowels right away - that is, feel as if you would have an accident: No Bowel incontinence - that is, have an accident because you cannot make it to the bathroom in time: No Problems with straining while having bowel movements , hard or lumpy stools, or feel unfinished (that you have not passed all your stool): No Pain in rectum or anus during bowel movements: No Problems with jaundice - that is, yellow discoloration of your skin or eyes, now or in the past: No Problems with having to flush the toilet more than two times due to oily stool, or see stool floating with oil: No documented in this encounter [facility] 08-09-2024 Note HNO ID: [id number] Author: GATO BANDA MD Service: ? Author Type: Physician Type: Progress Notes Filed: 08/09/2024 10:20 Note Text: VIRTUAL VISIT PROGRESS NOTE This is a virtual visit using [employer] Video Visit. It required patient-provider interaction for the medical decision making as documented below. I have communicated my name and active licensure. The patient's identity and physical location were verified at the time of this visit. Either the patient or their legal corporate representative has been informed of the risks and benefits of -- and alternatives to -- treatment through a remote evaluation and consents to proceed with the evaluation remotely. Ashley Ledesma is a 64-year-old male who is being seen for follow up of pancreatic cysts. 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 Overall these are unchanged from imaging obtained in December 2023. A pancreatic tail cyst measured eighteen by eighteen millimeters. A multi septated pancreatic neck cyst measured fifteen by 9mm. And a multi septated pancreatic head cyst measured ten by 7mm. All of these were previously slightly larger in size. The pancreatic duct itself was normal. Presently Discussion - Pancreatic Cyst - Medications: allopurinol, lisinopril, Flomax, and gemtesa No known drug allergies Past medical history: obstructive sleep apnea, stage 3B chronic kidney disease, history esophageal ulcer, benign prostatic hypertrophy, renal cell carcinoma status post left nephrectomy. HISTORY REVIEWED (electronic chart updated): No past [...] No Known Allergies REVIEW OF SYSTEMS: GENERAL: feeling well without fatigue, no recent change in weight ASSESSMENT: No diagnosis found. PLAN: Assessment and plan: 64-year-old male with multiple cysts consistent with IPMNs There are no high-risk features noted. The cysts exhibit at least two over the size of fifteen millimeters however they are stable in size. I am recommending another MRI in two years. We can follow with the urological imaging as needed. There are no Patient Instructions on file for this visit. I spent a total of 31 minutes on the date of the service which included preparing to see the patient and [id number] patient care Answers submitted by the patient for this visit: Review of Systems Gastroenterology (Submitted on 08/03/2024) Fever: No Chills: No Night Sweats: No Unitentional Weight Change: No A Cough: No Difficulty Breathing: No Chest Pain: No Belly pain: No A feeling of fullness or have belly pain after eating: No Food getting stuck in your throat or chest after eating: No Nausea - that is, a feeling like you could vomit: No Regurgitation - that is, food or liquid coming back up into your throat or mouth without vomiting, or feel burning behind your breast bone: No Loss of appetite: No To throw up or vomit: No Blood in your stools: No Black tarry stools: No Loose or watery stools: No The feeling like you need to empty your bowels right away - that is, feel as if you would have an accident: No Bowel incontinence - that is, have an accident because you cannot make it to the bathroom in time: No Problems with straining while having bowel movements , hard or lumpy stools, or feel unfinished (that you have not passed all your stool): No Pain in rectum or anus during bowel movements: No Problems with jaundice - that is, yellow discoloration of your skin or eyes, now or in the past: No Problems with having to flush the toilet more than two times due to oily stool, or see stool floating with oil: No [facility] 06-07-2024 Instructions Jayne Silveira MD - 06/07/2024 [...] function is stable. documented in this encounter [facility] 06-07-2024 Note HNO ID: [id number] Author: JAYNE SILVEIRA MD Service: ? Author Type: Physician Type: Progress Notes Filed: 06/13/2024 20:40 Note Text: Department of Kidney Medicine Medical Specialties [facility] SERVICE DATE: 06/07/2024 SERVICE TIME: 11:55 AM [...] studies, and office notes were reviewed in [facility] Latest Reference Range AND Units 06/07/24 [...] Color Yellow Yellow Clarity Clear Clear Specific [place], Ur 1.005 - 1.030 1.008 pH, Urine [...] - ask AA (more content not included)... [facility] 06-07-2024 History of Present illness Narrative Department of Kidney Medicine Medical Specialties [facility] SERVICE DATE: 06/07/2024 SERVICE TIME: 11:55 AM [...] studies, and office notes were reviewed in [facility] Latest Reference Range & Units 06/07/24 [...] Color Yellow Yellow Clarity Clear Clear Specific [place], Ur 1.005 - 1.030 1.008 pH, Urine [...] which included preparing to see the patient, [id number] patient care, completing clinical documentation, obtaining and/or reviewing separately obtained history, performing a medically appropriate examination, counseling and educating the patient/family/caregiver, and ordering medications, tests, or procedures. Visit CPLX Inherent E&M Associated with [facility] ([id number]) SIGNATURE: Jayne Silveira MD PATIENT NAME: Ashley Ledesma DATE: June 07, 2024 TIME: 11:55 AM CC: PRIMARY CARE PHYSICIAN: Adan Lamar MD documented in this encounter [facility] 06-07-2024 Note Patient Outreach (KI DMMN) ASHLEY LEDESMA ([id number]) 1960 M Date Time Provider Department 06/07/24 JAYNE SILVEIRA During your visit today, we recorded the following information about you: Allergies As of Date: 06/07/2024 (No Known Allergies) Date Reviewed: 06/07/2024 Reviewed by: Julia Senior OCCA - Fully Assessed Visit Diagnoses:Screening for genitourinary condition [Z13.89] Stage 3b chronic kidney disease (HCC) [N18.32] H/O left nephrectomy [Z90.5] Order(s):URINALYSIS, REFLEX MICROSCOPIC [[id number]] Order #: [id number]. #:[id number] PROTEIN / CREATININE RATIO [SQPRATIO] Order #: [id number]. #:[id number] Prescriptions as of 06/12/2024 - lisinopril (ZESTRIL) [...] Renal mass [N28.89] 01/06/2024 Encounter Status:Closed by NAE DUNBAR on 06/12/24 [facility] 04-26-2024 History of Present illness Narrative VIRTUAL VISIT PROGRESS NOTE This is a virtual visit using Audio Only Visit. It required patient-provider interaction for the medical decision making as documented below. I have communicated my name and active licensure. The patient's identity and physical location were verified at the time of this visit. Either the patient or their legal corporate representative has been informed of the risks [...] which included preparing to see the patient, vwke-pf-frkz patient care, completing clinical documentation, counseling and educating the patient/family/caregiver, and ordering medications, tests, or procedures Encounter converted to a telephone visit (audio only) due to insurmountable technological challenges. Jada Santo APRN.CNP documented in this encounter [facility] 04-26-2024 Note HNO ID: [id number] Author: JADA SANTO APRN.CNP Service: ? Author [...] visit. Either the patient or their legal corporate representative has been informed of the risks [...] 6 months wi (more content not included)... [facility] 04-25-2024 Miscellaneous Notes Radiology Service Progress [...] PATIENT PRESENTS WITH AN IMPLANTABLE OR ATTACHED MAIL PROCESSOR: No ALLERGIES: Reviewed and unchanged CONTRAST ALLERGY: NO. EXAM: MRI - CONTRAST TYPE: GROUP II PERIPHERAL IV DATA: Ambulatory: A peripheral IV was started in the Right antecubital site with a Angio cath: 24 gauge. RADIOLOGY DEPARTMENT: MR; Exam(s) Completed: Body: Renal SIGNATURE: Chung Rider, loan processor PATIENT NAME: Ashley Ledesma DATE: April 25, 2024 TIME: 8:39 AM documented in this encounter [facility] 04-25-2024 Progress note Formatting of t [...] PATIENT PRESENTS WITH AN IMPLANTABLE OR ATTACHED MAIL PROCESSOR: No ALLERGIES: Reviewed and unchanged CONTRAST ALLERGY: NO. EXAM: MRI - CONTRAST TYPE: GROUP II PERIPHERAL IV DATA: Ambulatory: A peripheral IV was started in the Right antecubital site with a Angio cath: 24 gauge. RADIOLOGY DEPARTMENT: MR; Exam(s) Completed: Body: Renal SIGNATURE: Chung Rider MRI Tech PATIENT NAME: Ashley Ledesma DATE: April 25, 2024 TIME: 8:39 AM [facility] 04-25-2024 Note HNO ID: [id number] Author: NISHANT DE LA ROSA RT(Sneha) Service: Radiology Author Type: Bell Valet Type: Progress Notes Filed: 04/25/2024 07:54 Note [...] PATIENT PRESENTS WITH AN IMPLANTABLE OR ATTACHED MAIL PROCESSOR: No RADIOLOGY DEPARTMENT: CT; Exam(s) Completed: Chest PERIPHERAL IV DATA: Not applicable SIGNED BY: RT Joe(R) April 25, 2024 7:54 AM [facility] 04-25-2024 History of Present illness Narrative Radiology [...] PATIENT PRESENTS WITH AN IMPLANTABLE OR ATTACHED MAIL PROCESSOR: No RADIOLOGY DEPARTMENT: CT; Exam(s) Completed: Chest PERIPHERAL IV DATA: Not applicable SIGNED BY: RT Joe(R) April 25, 2024 7:54 AM documented in this encounter [facility] 04-11-2024 Note HNO ID: [id number] Author: JAYNE SILVEIRA MD Service: ? Author Type: Physician Type: Progress Notes Filed: 04/11/2024 13:04 Note Text: Have decided to reduce lisinopril to 5 mg daily due to better BP at home of 120-130/70-80s with consistently high morning readings of 150s [facility] 04-11-2024 History of Present illness Narrative Have decided to reduce lisinopril to 5 mg daily due to better BP at home of 120-130/70-80s with consistently high morning readings of 150s documented in this encounter [facility] 03-24-2024 Instructions Jayne Silveira MD - [...] and low sodium. documented in this encounter [facility] 03-24-2024 History of Present illness Narrative [facility] NEPHROLOGY & HYPERTENSION [facility] SERVICE DATE: [...] 1. Will obtain previous creatinine levels from [facility] to better ascertain baseline function. 2. [...] which included preparing to see the patient, xzri-fr-vbff patient care, completing clinical documentation, obtaining and/or reviewing separately obtained history, performing a medically appropriate examination, counseling and educating the patient/family/caregiver, and ordering medications, tests, or procedures. SIGNATURE: Jayne Silveira MD PATIENT NAME: Ashley Ledesma DATE: March 23, 2024 TIME: 3:59 PM OFFICE NUMBER: [phone] CC: PRIMARY CARE PHYSICIAN: Adan Lamar MD documented in this encounter [facility] 03-24-2024 Note HNO ID: [id number] Author: JAYNE SILVEIRA MD Service: ? Author Type: Physician Type: Progress Notes Filed: 04/11/2024 13:05 Note Text: [facility] NEPHROLOGY AND HYPERTENSION [facility] SERVICE DATE: [...] of stable C (more content not included)... [facility] 03-24-2024 Note Patient Outreach (SUKHDEV DMMN) ASHLEY LEDESMA ([id number]) 1960 M Date Time Provider Department 03/24/24 JAYNE SILVEIRA During your visit today, we recorded the following information about you: Allergies As of Date: 03/24/2024 (No Known Allergies) Date Reviewed: 01/25/2024 Reviewed by: Jada Santo APRN.GROUND SURVEILLANCE SYSTEMS OPERATOR - Fully Assessed Visit Diagnosis:Screening for genitourinary condition [Z13.89] Order(s):URINALYSIS, REFLEX MICROSCOPIC [[id number]] Order #: [id number]. #:[id number] Prescriptions as of 03/27/2024 - vibegron (GEMTESA) [...] Renal mass [N28.89] 01/06/2024 Encounter Status:Closed by MANJINDER, PRODUSER on 03/27/24 [facility] 01-25-2024 History of Present illness Narrative VIRTUAL VISIT PROGRESS NOTE This is a virtual visit using [employer] Video Visit. It required patient-provider interaction for the medical decision making as documented below. I have communicated my name and active licensure. The patient's identity and physical location were verified at the time of this visit. Either the patient or their legal corporate representative has been informed of the risks [...] which included preparing to see the patient, yfml-tp-xgxh patient care, completing clinical documentation, counseling and educating the patient/family/caregiver, and ordering medications, tests, or procedures Jada Santo APRN.GROUND SURVEILLANCE SYSTEMS OPERATOR documented in this encounter [facility] 01-25-2024 Note HNO ID: [id number] Author: JADA SANTO APRN.CAROLYN Service: ? Author Type: Nurse Practitioner Type: Progress Notes Filed: 01/25/2024 14:27 Note Text: VIRTUAL VISIT PROGRESS NOTE This is a virtual visit using [employer] Video Visit. It required patient-provider interaction for the medical decision making as documented below. I have communicated my name and active licensure. The patient's identity and physical location were verified at the time of this visit. Either the patient or their legal corporate representative has been informed of the risks [...] which included preparing to see the patient, rdon-sv-aani patient care, c (more content not included)... [facility] 01-14-2024 Miscellaneous Notes PATIENT INFORMATION Record ID: [id number] [facility]: [facility] Attending: Charlotte Lindsey Center: Urology INSTRUCTIONS SN to remind patient of appointment date, time, location All Clear All Clear SURVEY INFORMATION Medical/Nurse Tool And Die Technician: Chon Avila 1. Your discharge instructions are [...] relation to symptoms. documented in this encounter [facility] 01-11-2024 Miscellaneous Notes Returned call to [...] RN, BSN Triage Nurse Department of Urology [facility] documented in this encounter [facility] 01-09-2024 Note HNO ID: [id number] Author: JULISA UGALDE MD Service: Urology Author [...] pathology report is indeterminate Other, please specify [facility] 01-09-2024 Note HNO ID: [id number] Author: JULISA UGALDE MD Service: Urology Author Type: Resident Type: Progress Notes Filed: 01/09/2024 08:15 Note Text: [facility] UROLOGY PROGRESS NOTE Name: Ashley Ledesma Bed: Main - Periop OR/Main - * Date: 01/09/2024 After Hours [facility] Service Pager: [phone] ASSESSMENT Ashley Ledesma is a 63 year [...] physician Dr César Ugalde MD Urology PGY3 [facility] Personal pager: [phone] On weekends and after 5PM, please page [phone] Active Problems BPH, POA- s/p TURP 2014, [...] 1.50* GLUC 130* 132* 151* Imaging Reviewed [facility] 01-08-2024 Note HNO ID: [id number] Author: JULISA UGALDE MD Service: Urology Author Type: Resident Type: Progress Notes Filed: 01/08/2024 10:24 Note Text: [facility] UROLOGY PROGRESS NOTE Name: Ashley Ledesma Bed: Main - Periop OR/Main - * Date: 01/08/2024 After Hours [facility] U[facility] Service Pager: [phone] ASSESSMENT Ashley Ledesma is a 63 year [...] physician Dr César Ugalde MD Urology PGY3 [facility] Personal pager: [phone] On weekends and after 5PM, please page [phone] Active Problems BPH, POA- s/p TURP 2014, [...] 1.66* 1.50* GLUC 132* 151* Imaging Reviewed [facility] 01-07-2024 Note HNO ID: [id number] Author: RAQUEL ROBERTOSN MD Service: Urology Author Type: Resident Type: Progress Notes Filed: 01/07/2024 11:16 Note Text: [facility] UROLOGY PROGRESS NOTE Name: Ashley Ledesma Bed: Main - Periop OR/Main - * Date: 01/07/2024 After Hours [facility] U[facility] Service Pager: [phone] ASSESSMENT Ashley Ledesma is a 63 year [...] Pending recovery Discussed with attending physician MD aRquel Bryant MD Urology PGY2 [facility] For weekend or after hours issues [place] [phone] Active Problems BPH, POA- s/p TURP 2014, [...] 1.66* 1.50* GLUC 132* 151* Imaging Reviewed [facility] 01-06-2024 Note HNO ID: [id number] Author: CORNELIA BAÑUELOS SRNA Service: ? Author [...] January 06, 2024 TIME: 3:11 PM CSN: [id number] [facility] 01-06-2024 Note HNO ID: [id number] Author: CORNELIA BAÑUELOS SRNA Service: ? 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 and patient Staffing SRNA: Cornelia Bañuelos SRNA [...] January 06, 2024 TIME: 3:10 PM CSN: [id number] [facility] 01-06-2024 Note HNO ID: [id number] Author: KISHOR ORDONEZ MD Service: Urology Author Type: Resident Type: Progress Notes Filed: 01/07/2024 00:26 Note Text: [facility] PROGRESS NOTE Name: Ashley Ledesma Bed: Main - Periop OR/Main - * Date: 01/06/2024 After Hours [facility] U[facility] Service Pager: [phone] ASSESSMENT Ashley Ledesma is a 63 year [...] physician MD Raquel Bryant MD Urology PGY2 [facility] For weekend or after hours issues [place] [phone] Active Problems BPH, POA- s/p TURP 2014, [...] Zuniga catheter present with CYU Imaging Reviewed [facility] 01-05-2024 Note HNO ID: [id number] Author: ?, ?, ? Service: Radiology Author [...] PATIENT PRESENTS WITH AN IMPLANTABLE OR ATTACHED MAIL PROCESSOR: No RADIOLOGY DEPARTMENT: CT; Exam(s) Completed: Chest PERIPHERAL IV DATA: Not applicable SIGNED BY: Carl Schultz January 05, 2024 2:52 PM [facility] 01-05-2024 History of Present illness Narrative [...] PATIENT PRESENTS WITH AN IMPLANTABLE OR ATTACHED MAIL PROCESSOR: No CREATININE: Creatinine Date Value Ref Range [...] safety can be found using this link: [email or web address]%20Pro tection%20-%20Diagnostic%20Nuclear %20Medicine%20Procedures.pdf SIGNATURE: EUGENE Story) PATIENT NAME: Ashley Ledesma DATE: January 05, 2024 TIME: 12:59 PM PAGER/CONTACT #: documented in this encounter [facility] 01-05-2024 Note HNO ID: [id number] Author: LILIA CURRY RT (R) Service: Nuclear [...] PATIENT PRESENTS WITH AN IMPLANTABLE OR ATTACHED MAIL PROCESSOR: No CREATININE: Creatinine Date Value Ref Range [...] 1240 PATIENT DISCHARGED TO: Ambulatory patient, left [place] department area. A Diagnostic radioactive procedure has taken place, with no further precautions necessary other than routine body substance precautions. More information regarding radiation safety can be found using this link: [email or web address]/Rad%20Pro tection%20-% 20Diagnostic%20Nuclear%20Medicine% 20Procedures.pdf SIGNATURE: RT Porsha(R) PATIENT NAME: Ashley Ledesma DATE: January 05, 2024 TIME: 12:59 PM PAGER/CONTACT #: [facility] 01-05-2024 Note HNO ID: [id number] Author: ANAI LEMA MD Service: ? Author Type: Anesthesiologist Type: Progress Notes Filed: 01/05/2024 12:40 Note Text: Attending Note I evaluated the patient and personally participated in the julien components. I agree with the resident's findings and plan as documented and have discussed the case and management of the patient's care with the resident. Signature: Anai Lema MD Date: 01/05/2024 Time: 12:40 PM [facility] 01-05-2024 History of Present illness Narrative Attending Note I evaluated the patient and personally participated in the julien components. I agree with the resident's findings and plan as documented and have discussed the case and management of the patient's care with the resident. Signature: Anai Lema MD Date: 01/05/2024 Time: 12:40 PM documented in this encounter [facility] 01-05-2024 Instructions Leyda Parker DO - 01/05/2024 11:43 AM EST PATIENT PREOPERATIVE INSTRUCTIONS Charlotte Lindsey MD has scheduled you for your procedure at this surgery center: [facility] [place] Scheduling Office: [phone] --[address] [place] [address]. Please read below carefully for your personalized [...] call the Wednesday before. Your surgeon s nursing scheduler will tell you what time to call the office. - If you have not reached the departmental nursing scheduler by 5 P.M., call [phone] after 5 P.M. the day before your surgery. Please be aware that emergency situations arise, which may delay or change your surgical time. If this happens, we will notify you as soon as possible and regret any inconvenience. If you already have an Advance Directive, please fax a copy to [phone] or email to for it to be [...] Leyda Parker DO documented in this encounter [facility] 01-05-2024 History and physical note HISTORY [...] fevers. 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 No neurological symptoms or problems. Respiratory: No history of current cough or dyspnea, or pneumonia in the past 6 weeks. No history of respiratory/pulmonary symptoms or problems. Cardiovascular: No history of HTN requiring medication, no history of angina, CHF, ID, cardiac surgery or stents. Denies rest pain, [...] TIME: 12:06 PM documented in this encounter [facility] 01-04-2024 Note HNO ID: [id number] Author: TOM PRATHER MRI Tech Service: Radiology Author Type: Bell Valet Type: Progress Notes Filed: 01/04/2024 10:12 Note [...] PATIENT PRESENTS WITH AN IMPLANTABLE OR ATTACHED MAIL PROCESSOR: No RADIOLOGY DEPARTMENT: MR; Exam(s) Completed: Body: Renal PERIPHERAL IV DATA: Site assessment: Clean,Dry and Intact, Site disposition Discontinued SIGNED BY: LADARIUS Oneal January 04, 2024 10:11 AM [facility] 01-04-2024 Note HNO ID: [id number] Author: ELEANOR JONES RN Service: Nursing Author [...] DATE: January 04, 2024 TIME: 8:49 AM [facility] 12-21-2023 History of Present illness Narrative [...] Zach Hargrove, December 21, 2023 11:10 AM ICharlotte MD, personally performed the services described in this documentation. All medical record entries made by the scribe were at my direction and in my presence. I have reviewed the chart and discharge instructions (if applicable) and agree that the record reflects my personal performance and is accurate and complete. Charlotte Lindsey MD documented in this encounter [facility] 12-21-2023 Note HNO ID: [id number] Author: CHARLOTTE LINDSEY MD Service: ? Author [...] negative, moderate trabeculation and most recent FISH/cytol 12/13/22 negative. PMH: BPH s/p TURP (2015), bladder cancer s/p TURBT (2015), gross hematuria, elevated PSA, sleep apnea, ED, [...] Zach Hargrove, December 21, 2023 11:10 AM ICharlotte MD, personally performed the services described in this documentation. All medical record entries made by the lizandroibjayda were at my direction and in my presence. I have rev (more content not included)... [facility] 12-21-2023 Note Patient Outreach (UR OLMN) ASHLEY LEDESMA ([id number]) 1960 Date Time Provider Department 12/21/23 CHARLOTTE LINDSEY During your visit today, we recorded the following information about you: Allergies As of Date: 12/21/2023 (Not on File) Date Reviewed: Never Reviewed Visit Diagnosis:Screening for genitourinary condition [Z13.89] Order(s):URINALYSIS, REFLEX MICROSCOPIC [[id number]] Order #: [id number]. #:[id number] Prescriptions as of 12/24/2023 - allopurinol (ZYLOPRIM) [...] Of Date: 12/21/2023 (None) Encounter Status:Closed by NAE DUNBAR on 12/24/23 [facility] 11-30-2023 Hospital Discharge instructions Patient Education [...] urethra. Follow these instructions at home: Take avbd-kwe-xrviauj and prescription medicines only as told by [...] Document Reviewed: 06/03/2022 Elsevier Patient Education 2022 ZEB. Follow Up Care 11/23/2023 16:14:09 With:ESTEFANI WILLIAMSON, Davey Hoover, URL Address: [facility] [address] [place] [address]- When: Unknown Comments:Appt scheduled for 09/29/24 [facility] [place] 09-24-2023 Hospital Discharge instructions Patient Education 09/24/2023 [...] treatment? Where to find more information [employer]: www.cancer.org [employer]: www.auanet.org Contact a health care [...] provider. Document Revised: 05/11/2022 Document Reviewed: 05/11/2022 [employer] Patient Education 2022 ZEB. Follow Up Care 09/28/2022 15:56:00 With:ESTEFANI WILLIAMSON, Davey Hoover, URL Address: [address] [place] [address]- When: Unknown [facility] 07-12-2023 Hospital Discharge instructions Patient [...] including vitamins, herbs, eye drops, creams, and aklq-fmn-wbkzuhi medicines. Any problems you or family members [...] provider tells you to take them. Taking dyaq-zab-kghgqnv medicines, vitamins, herbs, and supplements. General instructions [...] provider. Document Revised: 11/09/2022 Document Reviewed: 07/08/2022 [employer] Patient Education 2022 ZEB. Follow Up Care 07/06/2023 13:47:03 With:Garima Eastman CNP Address: When:1 to 2 weeks Comments:Following colonoscopy. [facility] 02-18-2023 Hospital Discharge instructions Patient Education 02/18/2023 16:09:24 Endoscopy, Care After Procedure [facility] Endoscopy Care After Procedure Please read the [...] blood. Document Released: 06/29/2005 Document Re-Released: 05/09/2007 Interface[employer] Patient Information Highlight. 02/18/2023 16:09:24 Swallowed Foreign Body, Adult, Bzua-gd-Jwix Swallowed Foreign Body, Adult A swallowed foreign [...] yourself after the procedure. General instructions Take gkdi-eks-octsqhq and prescription medicines only as told by [...] 03/01/2012 Document Revised: 09/28/2019 Document Reviewed: 09/28/2019 [employer] Patient Education 2020 8aweek Follow Up Care 02/18/2023 13:49:24 With:Gato Powell Address:Unknown When:1 to 2 weeks Comments:Call for any problems. Office will call with biopsy results [facility] 02-18-2023 Evaluation + Plan note Extrac humberto from: Title:CSB post op Author:Savi WILLIAMSON, Guillermo Leahy Date:02/18/23 Plan Transfer/Discharge: Transfer/Discharge Discharge when meets criteria ( To home ). Extracted from: Title:Consult Note Author:Gato Powell MD te:02/18/23 62-year-old male who swallow [...] 2.07, m2 Pathology Tissue Exam Addendum by Gato Powell MD on February 18, 2023 15:48:38 [...] Date:09/27/2023 01:45:00 PM Scheduled Provider:Davey JARA MD Location:[facility] Future App[facility]ments Appointment Date:06/18/2023 01:45:00 PM Scheduled Provider: Location:[facility] Appointment Type:Surgery FT Appointment Date:09/27/2023 01:45:00 PM Scheduled Provider:Davey JARA MD Location:[facility] Appointment Type:URO Office Visit [facility] Evaluation + Plan note Future Appointments Appointment Date:09/24/2023 08:15:00 AM Scheduled Provider:Davey JARA MD Location:[facility] Appointment Type:URO Office Visit [facility] Evaluation + Plan note Future Appointments Appointment Date:09/29/2024 08:00:00 AM Scheduled Provider:Davey JARA MD Location:[facility] Appointment Type:URO Office Visit Diagnostic Tests Pending * PSA Total 07/30/24 [facility] evaluation + Plan note Future Appointments Appointment Date:09/29/2024 08:00:00 AM Scheduled Provider:Davey JARA MD Location:[facility] Appointment Type:URO Office Visit [facility] Evaluation + Plan note Future Appointments Appointment Date:11/11/2023 02:00:00 PM Scheduled Provider:COLLEEN Giraldo APRN, [place] [facility] Location:[facility] Appointment Type:URO Office Visit Appointment Date:09/29/2024 08:00:00 AM Scheduled Provider:Davey JARA MD Location:[facility] Appointment Type:URO Office Visit Diagnostic Tests Pending * [facility]rine [facility] Future App[facility]ments Appointment Date:11/30/2023 01:15:00 PM Scheduled Provider:Davey JARA MD Location:[facility] Appointment Type:URO Procedure 15 min Appointment Date:09/29/2024 08:00:00 AM Scheduled Provider:Davey JARA MD Location:[facility] [place] Appointment Type:URO Office Visit [facility] evaluation + Plan note Future Appointments Appointment Date:09/29/2024 08:00:00 AM Scheduled Provider:[facility] Office Visit Diagnostic Tests Pending * UroVysion Fish and Urine Cyto ([facility]) 11/30/23 [facility] note* Diagnosis Pre-op evaluation- Primary Preoperative examination, unspecified Renal mass Unspecified disorder of kidney and ureter [facility] [place] Diagnosis Ac[facility] Renal cell carcinoma of left kidney (HCC)- Primary H/O left nephrectomy Stage 3b chronic kidney disease (HCC) [facility] Diagnosis Renal mass- Primary Unspecified disorder of kidney and ureter Gross hematuria Other specified disorders of kidney and ureter 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) Acquired cyst of kidney [facility] Diagnosis Screening for genitourinary condition Screening for other and unspecified genitourinary condition [facility] Diagnosis H/O left nephrectomy Stage 3b chronic kidney disease (HCC) [facility] Diagnosis Renal cell carcinoma of left kidney (HCC) [facility]al cell carcinoma of left kidney (HCC[facility] Encounter for follow-up surveillance of kidney cancer- Primary Unspecified follow-up examination History of renal cell cancer H/O left nephrectomy Stage 3a chronic kidney disease (HCC) Pancreatic cyst Cyst and pseudocyst of pancreas documented in this encounter [facility] [facility] [place] [facility] Diagnosis Screening for genitourinary condition Screening for other and unspecified genitourinary condition Stage 3b chronic kidney disease (HCC) H/O left nephrectomy [facility] encounter [facility] [place] [facility] Diagnosis Stage 3b chronic kidney disease (HCC)- Primary H/O left nephrectomy documented in this encounter [facility] note* Diagnosis Pre-op evaluation- Primary Preoperative examination, unspecified 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 [facility] N[facility]ative No data available for this section [facility] No data available for this section [facility] Progress note No data available for this section [facility] (narrative)* Diagnostic Procedure Only (Routine) - Closed Specialty Diagnoses / Procedures Referred By Andrew paredes Referred To Contact MOLECULAR & FUNCTIONAL IMAGING Diagnoses Acquired cyst of kidney Procedures NM RENAL FLOW/FXN WO PHARM KIDNEY IMG MORPHOLOGY VASCULAR FLOW 1 W/O RX Jonny Arnett MD [address] [place] [address] Molecular & Functional Imaging [address] [place] [address] Referral ID Status Reason Start Date Expiration Date V isits Requested Visits Authorized [id number] Closed Auto-Generate d Referral 12/21/2023 11/28/2024 1 1 [facility] for referral (narrative)* Diagnostic Procedure Only (Routine) - Closed Specialty Diagnoses / Procedures Referred By Contvilma paredes Referred To Contact MOLECULAR & FUNCTIONAL IMAGING Diagnoses Acquired cyst of kidney Procedures NM RENAL FLOW/FXN WO PHARM KIDNEY IMG MORPHOLOGY VASCULAR FLOW 1 W/O RX Jonny Arnett MD [address] [place] [address] Molecular & Functional Imaging [address] [phone] Referral ID Status Reason Start Date Expiration Date V isits Requested Visits Authorized [id number] Closed Auto-Generate d Referral 12/21/2023 11/28/2024 1 1 * Outpatient Procedure (Routine) - Pending Review Specialty Diagnoses / Procedures [facility] Referred To Contact [facility] VASCULAR SAVOY Diagnoses Renal mass Gross hematuria Other specified disorders of kidney and ureter 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) Procedures ECG COMPLETE ECG ROUTINE ECG W/LEAST 12 LDS W/I&R Jonny Arnett MD [address] [place] [address] [place] [address] Referral ID Status Reason Start Date Expiration Date Visits Requested Visits Authorized [id number] Pending Review Auto-Generat ed Referral 12/21/2023 12/20/2024 1 1 * MRI/CT (Routine) - Closed Specialty Diagnoses / Procedures [facility] Referred To Contact CT IMAGING Diagnoses 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) Procedures CT CHEST WO IVCON DIAGNOSTIC COMPUTED TOMOGRAPHY THORAX W/O CNTRST Jonny Arnett MD [address] [place] [address] [address] [facility] [address] [id number] Referral ID Status Reason Start Date Expiration Date V isits Requested Visits Authorized [id number] Closed Auto-Generat ed Referral Patient Cleared - Admin/Chairm an/Director advise to proceed or did not respond 01/05/2024 01/05/2024 1 1 * MRI/CT (Routine) - Closed Specialty Diagnoses / Procedures [facility] Referred To Contact MR IMAGING Diagnoses Other specified disorders of kidney and ureter Procedures MRI KIDNEY WO/W IVCON MRI ABDOMEN W/O & [place] [address] [place], [place] [id number] Mr Imaging [facility] Referral ID Status Reason Start Date Expiration Date V isits Requested Visits Authorized [id number] Closed Auto-Generate d Referral 01/04/2024 02/02/2024 1 1 [facility] Summary Purpose Family History No Family History [...] COMPUTED TOMOGRAPHY THORAX W/O CNTRST Jada Santo, BRAKE REPAIRER RAILROAD.GROUND SURVEILLANCE SYSTEMS OPERATOR [address] [place] [address] Ct Imaging [facility]95 Referral ID Status Reason Start Date Expiration Date Visits Requested Visits Authorized [id number] Pending Review Auto-Generat ed Referral 04/26/2024 05/26/2025 1 1 Specialty Diagnoses / Procedures Referred By Contac t Referred To Contact MR IMAGING Diagnoses History of renal cell cancer Procedures MRI ABDOMEN WO/W IVCON MRI ABDOMEN W/O & W/CONTRAST MATERIAL Jada Santo, BRAKE REPAIRER RAILROAD.GROUND SURVEILLANCE SYSTEMS OPERATOR [address] [place] [address] Mr Imaging [facility]95 Referral ID Status Reason Start Date Expiration Date Visits Requested Visits Authorized [id number] Pending Review Auto-Generat ed Referral 04/26/2024 05/26/2025 1 1 Specialty Diagnoses / Procedures Referred By Contac t Referred To Contact Gastroenterology Diagnoses Pancreatic cyst Procedures CONSULT TO GASTROENTEROLOGY OFFICE/OUTPATIENT NEW HIGH MDM 60 MINUTES Jada Santo, BRAKE REPAIRER RAILROAD.GROUND SURVEILLANCE SYSTEMS OPERATOR [address] [place] [address] Referral ID Status Reason Start Date Expiration Date Visits Requested Visits Authorized [id number] Authorized PCP Requested Referral 04/26/2024 04/26/2025 1 1 Specialty Diagnoses / Procedures Referred By Jazmynac t Referred To Contact MR IMAGING Diagnoses Renal cell carcinoma of left kidney (HCC) Procedures MRI ABDOMEN WO/W IVCON MRI ABDOMEN W/O & W/CONTRAST MATERIAL Jada Santo APRN.GROUND SURVEILLANCE SYSTEMS OPERATOR [address] [phone] Mr Imaging [place] [address] Referral ID Status Reason Start Date Expiration Date Visits Requested Visits Authorized [id number] Pending Review Auto-Generat ed Referral 01/25/2024 02/23/2025 1 1 Specialty Diagnoses / Procedures Referred By Jazmynac t Referred To Contact CT IMAGING Diagnoses Renal cell carcinoma of left kidney (HCC) Procedures CT CHEST WO IVCON DIAGNOSTIC COMPUTED TOMOGRAPHY THORAX W/O CNTRST Jada Santo, STEPAN.GROUND SURVEILLANCE SYSTEMS OPERATOR [address] [place] [address] [address] [facility] [place] [address] Referral ID Status Reason Start Date Expiration Date Visits Requested Visits Authorized [id number] Pending Review Auto-Generat ed Referral 01/25/2024 02/23/2025 1 1 Specialty Diagnoses / Procedures Referred By Jazmynac t Referred To Contact Nephrology Diagnoses H/O left nephrectomy Stage 3b chronic kidney disease (HCC) Procedures CONSULT TO NEPHROLOGY OFFICE/OUTPATIENT [facility] 60 MINUTES Jada Santo, STEPAN.GROUND SURVEILLANCE SYSTEMS OPERATOR [address] [phone] Referral ID Status Reason Start Date Expiration Date Visits Requested Visits Authorized [id number] Authorized PCP Requested Referral 01/25/2024 01/24/2025 1 1 Additional Source Comments (unrecognized sect ion and content) No Status Records FoundNo Status Records FoundNo Status Records FoundNo Status Records FoundNo Status Records FoundNo Status Records FoundNo Status Records Found INFORMATION SOURCE (unrecogn ized section and content) DATE CREATED AUTHOR 05/25/2018 [facility] DATE CREATED AUTHOR AUTHOR'S ORGANIZ ATION 01/26/2021 [facility] DATE CREATED AUTHOR AUTHOR'S ORGANIZ ATION 07/12/2023 [facility] DATE CREATED AUTHOR AUTHOR'S ORGANIZ ATION 11/26/2023 [facility] DATE CREATED AUTHOR AUTHOR'S ORGANIZ ATION 04/26/2024 [facility] DATE CREATED AUTHOR AUTHOR'S ORGANIZ ATION 07/28/2024 [facility] DATE CREATED AUTHOR AUTHOR'S ORGANIZ ATION 08/11/2024 [facility] Patient Care team informatio n (unrecognized section and content) Animal Science Professor Relationship Specialty Start Date End Date Adan Lamar MD [address] [phone] PCP - General Family Medicine 12/22/23 Animal Science Professor Relationship Specialty Start Date End Date Adan Lamar MD [address] [phone] PCP - General Family Medicine 12/22/23 Animal Science Professor Relationship Specialty Start Date End Date Adan Lamar MD [address] [place] [address] PCP - General Family Medicine 12/22/23 Animal Science Professor Relationship Specialty Start Date End Date Adan Lamar MD [address] [place] [address] PCP - General Family Medicine 12/22/23 Animal Science Professor Relationship Specialty Start Date End Date Adan Lamar MD [address] [phone] PCP - General Family Medicine 12/22/23 Animal Science Professor Relationship Specialty Start Date End Date Adan Lamar MD [address] [place] [facility] [place] [address] PCP - General Family Medicine 12/22/23 Animal Science Professor Relationship Specialty Start Date End Date Adan Lamar MD [address] [place] [facility] [place] [address] PCP - General Family Medicine 12/22/23 Animal Science Professor Relationship Specialty Start Date End Date Adan Lamar MD [address] [place] [facility] [place] [address] PCP - General Family Medicine 12/22/23 Animal Science Professor Relationship Specialty Start Date End Date Adan Lamar MD [address] [place] [facility] [place] [address] PCP - General Family Medicine 12/22/23 Animal Science Professor Relationship Specialty Start Date End Date Adan Lamar MD [address] [place] [facility] [place] [address] PCP - General Family Medicine 12/22/23 Animal Science Professor Relationship Specialty Start Date End Date Adan Lamar MD [address] [place] [facility] [place] [address] PCP - General Family Medicine 12/22/23 Animal Science Professor Relationship Specialty Start Date End Date Adan Lamar MD [address] [place] [facility] [place] [address] PCP - General Family Medicine 12/22/23 Animal Science Professor Relationship Specialty Start Date End Date Adan Lamar MD [address] [place] [facility] [place] [address] PCP - General Family Medicine 12/22/23 Animal Science Professor Relationship Specialty Start Date End Date Adan Lamar MD [address] [phone] PCP - General Family Medicine 12/22/23 Source Comments (unrecognize d section and content) In the event this informatio n is protected by the Federal Confidentiality of Alcohol and Drug Abuse Patient Records regulations: The Federal rules restrict any use of the information to criminally investigate or prosecute any alcohol or drug abuse patient.[facility] the event this information is protected by the Federal Confidentiality of Alcohol and Drug Abuse Patient Records regulations: The Federal rules restrict any use of the information to criminally investigate or prosecute any alcohol or drug abuse patient.[facility] the event this information is protected by the Federal Confidentiality of Alcohol and Drug Abuse Patient Records regulations: The Federal rules restrict any use of the information to criminally investigate or prosecute any alcohol or drug abuse patient.[facility] the event this information is protected by the Federal Confidentiality of Alcohol and Drug Abuse Patient Records regulations: The Federal rules restrict any use of the information to criminally investigate or prosecute any alcohol or drug abuse patient.[facility] the event this information is protected by the Federal Confidentiality of Alcohol and Drug Abuse Patient Records regulations: The Federal rules restrict any use of the information to criminally investigate or prosecute any alcohol or drug abuse patient.[facility] the event this information is protected by the Federal Confidentiality of Alcohol and Drug Abuse Patient Records regulations: The Federal rules restrict any use of the information to criminally investigate or prosecute any alcohol or drug abuse patient.[facility] Hospital[facility] the event this information is protected by the Federal Confidentiality of Alcohol and Drug Abuse Patient Records regulations: The Federal rules restrict any use of the information to criminally investigate or prosecute any alcohol or drug abuse patient.[facility] the event this information is protected by the Federal Confidentiality of Alcohol and Drug Abuse Patient Records regulations: The Federal rules restrict any use of the information to criminally investigate or prosecute any alcohol or drug abuse patient.[facility] HospitalIn the event this information is protected by the Federal Confidentiality of Alcohol and Drug Abuse Patient Records regulations: The Federal rules restrict any use of the information to criminally investigate or prosecute any alcohol or drug abuse patient.[facility] HospitalIn the event this information is protected by the Federal Confidentiality of Alcohol and Drug Abuse Patient Records regulations: The Federal rules restrict any use of the information to criminally investigate or prosecute any alcohol or drug abuse patient.[facility] HospitalIn the event this information is protected by the Federal Confidentiality of Alcohol and Drug Abuse Patient Records regulations: The Federal rules restrict any use of the information to criminally investigate or prosecute any alcohol or drug abuse patient.[facility] HospitalIn the event this information is protected by the Federal Confidentiality of Alcohol and Drug Abuse Patient Records regulations: The Federal rules restrict any use of the information to criminally investigate or prosecute any alcohol or drug abuse patient.[facility] HospitalIn the event this information is protected by the Federal Confidentiality of Alcohol and Drug Abuse Patient Records regulations: The Federal rules restrict any use of the information to criminally investigate or prosecute any alcohol or drug abuse patient.[facility] HospitalIn the event this information is protected by the Federal Confidentiality of Alcohol and Drug Abuse Patient Records regulations: The Federal rules restrict any use of the information to criminally investigate or prosecute any alcohol or drug abuse patient.[facility] HospitalIn the event this information is protected by the Federal Confidentiality of Alcohol and Drug Abuse Patient Records regulations: The Federal rules restrict any use of the information to criminally investigate or prosecute any alcohol or drug abuse patient.[facility] Reason for Visit (unrecogniz ed section and content) Reason Comments Radiology NM Specialty Diagnoses / Procedures Referred By Jazmynac t Referred To Contact MOLECULAR & FUNCTIONAL IMAGING Diagnoses Acquired cyst of kidney Procedures NM RENAL FLOW/FXN WO PHARM KIDNEY IMG MORPHOLOGY VASCULAR FLOW 1 W/O RX Jonny Arnett MD [address] [place] [address] Molecular & Functional Imaging [address] [phone] Referral ID Status Reason Start Date Expiration Date V isits Requested Visits Authorized [id number] Closed Auto-Generate d Referral 12/21/2023 11/28/2024 1 1 Reason Comments Returning Patient's Call Reason Comments Follow Up Phone Call All Clear Reason Comments Post-Op Visit Reason Comments New Patient Reason Comments Consult Specialty Diagnoses / Procedures [facility] Referred To Contact Nephrology Diagnoses H/O left nephrectomy Stage 3b chronic kidney disease (HCC) Procedures CONSULT TO NEPHROLOGY OFFICE/OUTPATIENT NEW HIGH MDM 60 MINUTES Jada Santo, BRAKE REPAIRER RAILROAD.GROUND SURVEILLANCE SYSTEMS OPERATOR [address] [phone] Referral ID Status Reason Start Date Expiration Date V isits Requested Visits Authorized [id number] Closed PCP Requested Referral 01/25/2024 01/24/2025 1 1 Specialty Diagnoses / Procedures [facility] Referred To Contact CT IMAGING Diagnoses Renal cell carcinoma of left kidney (HCC) Procedures CT CHEST WO IVCON DIAGNOSTIC COMPUTED TOMOGRAPHY THORAX W/O CNTRST Jada Santo, BRAKE REPAIRER RAILROAD.GROUND SURVEILLANCE SYSTEMS OPERATOR [address] [place] [address] [address] [facility] [place] [address] Referral ID Status Reason Start Date Expiration Date V isits Requested Visits Authorized [id number] Closed Auto-Generate d Referral 01/25/2024 02/23/2025 1 1 Specialty Diagnoses / Procedures [facility] Referred To Contact MR IMAGING Diagnoses Renal cell carcinoma of left kidney (HCC) Procedures MRI ABDOMEN WO/W IVCON MRI ABDOMEN W/O & W/CONTRAST MATERIAL Jada Santo APRN.GROUND SURVEILLANCE SYSTEMS OPERATOR [address] [phone] [place] [address] Referral ID Status Reason Start Date Expiration Date V isits Requested Visits Authorized [id number] Closed Auto-Generate d Referral 01/25/2024 02/23/2025 1 1 Reason Comments Follow Up Reason Comments Follow Up Reason Comments cyst, pancreas FOR RECORDS PERTAINING TO PATIENTS WHO ARE [...] BE BASED ON THE PRIMARY CLINICAL RECORDS. [facility]. provides no warranty or guarantee of the accuracy or completeness of information in this document.
[2024-08-21 06:54] VITALS: BP 149/90; PULSE 77; TEMP 36.8; O2SAT 99
[2024-08-21] MEDS: TRIAMCINOLONE ACETONIDE 40 MG/ML VIAL INJ (07:44)
[2024-08-21] MEDS: BUPIVACAINE HCL 0.25% PF 25 MG/10 ML VIAL 5 ML INJ (07:44)
[2024-08-21] MEDS: LIDOCAINE HCL 2% 400 MG/20 ML MDV 15 ML INJ (07:45)
[2024-08-21] MEDS: IOHEXOL 240 MG/ML - 10 ML VIAL INJ (07:45)
--- NOTE | 2024-08-21 07:45 | W.PM.PROCNOT ---
Date of procedure: 08/21/24 Pre-op diagnosis: Pain due to right sacroiliitis Post-op diagnosis: same as pre-op Procedure: Procedure: Right sacroiliac joint injection Medications: Bupivacaine 0.25% 3cc, kenalog 40mg After informed consent was obtained, the patient was brought to the medical procedure unit and placed in the prone position, when a timeout was completed verifying correct patient, procedure, site, positioning, implant, and/or special equipment.? The skin overlying the area was prepped and draped in standard sterile fashion using alcohol.? A 25-gauge needle was inserted towards the right sacroiliac joint under direct fluoroscopic imaging.? Needle tip was advanced until the joint was encountered.? We instilled a total of 2 mL of solution.? Postoperatively needles were removed.? The patient tolerated the procedure well without complication.? The patient reported reduction in pain symptoms postoperatively. Anesthesia: Local Surgeon: Marco Rivas Pathology: none sent Condition: stable Disposition: no change
[2024-08-21 07:46] VITALS: BP 155/92; BP 157/90; PULSE 73; PULSE 75; O2SAT 100
== END 2024-08-21 07:49 | disposition home or self-care (01) ==
LOC: SURGOUT 06:38
PROVIDERS: PCP Family Medicine; Visit Provider Anesthesiology
DX: M46.1 Sacroiliitis, not elsewhere classified (principal)
CPT/HCPCS: 27096; J0665; J3301; Q9966

== ENCOUNTER 2024-08-31 13:31 | Outpatient (OUT) | payer OTHER, MEDICARE, SELFPAY ==
--- NOTE | 2024-08-31 14:07 | PM.CN ---
Consult Note: HPI Data of Consult Patient: known to practice within the last 3 years Requesting Physician: Taylor Velazco NP Primary Care Provider: Thomas De Santiago MD Consult Narrative Reason for consult: establish Narrative: Venkat Cadena a pleasant 64 year old man presents for evaluation and management of chronic right hip and leg pain for greater than 8 years without initial injury or inticing event. 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 hx of renal cancer with nephrectomy 2023, cannot take NSAIDs. patient has found no improvement with heat/ice, mild-moderate improvement with tylenol. Patient has an updated lumbar xray and MRI with results below, was evaluated by Dr Isidro who deemed pt nonsurgical and recommended right SIJ injection. pt recently underwent right SIJ injcetion with no significant relief while anesthetized but greater than 50% improvement ongoing. 1-210 aching pain in right low back, SIJ, and right calf. noticing improvement in ability to stand and walk for longer periods of time with less pain. cc:: CC: Taylor Velazco NP Review of Systems ROS Status of ROS 10 or more systems reviewed and unremarkable except as noted in history and below PFSH PFSH Medical History (Updated 08/16/24 @ 15:51 by Letitia Winston, OBDULIA) Cancer of kidney ?C64.9 - Malignant neoplasm of unspecified kidney, except renal pelvis (ICD-10) Surgical History (Updated 08/16/24 @ 15:51 by Letitia Winston, OBDULIA) History of nephrectomy, left ?Z90.5 - Acquired absence of kidney (ICD-10) History of transurethral resection of prostate ?Z98.890 - Other specified postprocedural states (ICD-10) ?Z90.79 - Acquired absence of other genital organ(s) (ICD-10) Social History Smoking status: Former smoker Meds Home Medications and Allergies Home Medications ?Medication ?Instructions ?Recorded ?Confirmed ?Type allopurinol 300 mg tablet 300 mg PO DAILY 11/23/23 08/21/24 History tamsulosin 0.4 mg capsule 0.4 mg PO Q24H 11/23/23 08/21/24 History lisinopril 5 mg tablet 5 mg PO DAILY 08/10/24 08/21/24 History mirabegron 50 mg tablet,extended 50 mg PO DAILY 08/10/24 08/21/24 History release 24 hr (Myrbetriq) Allergies Allergy/AdvReac Type Severity Reaction Status Date / Time No Known Drug Allergies Allergy Verified 08/21/24 06:56 Exam Constitutional Documenting provider has reviewed patient's vital signs: yes Common normals: no apparent distress, oriented x3, healthy appearing, alert and well nourished General appearance: cooperative HENMT Common normals: normocephalic, hearing grossly normal bilaterally and moist oral mucous membranes Head and scalp: normocephalic Eye Common normals: PERRL Pupil: PERRL Neck & C-Spine Common normals: full ROM General: normal visual inspection Chest Common normals: inspection of chest normal Respiratory Common normals: normal respiratory effort, no retractions and no use of accessory muscles Back & Pelvis Lumbar spine/lower back: normal to inspection, lumbar ROM normal, pain with ROM and straight leg raise negative bilaterally; no lumbar spinal tenderness and no paraspinal muscle tenderness Sacroiliac joints: SI joint(s) abnormal Other: mild right positive linden(patricks), gaenslens, thigh thrust, compression test intermittent numbness tingling heaviness to RLE following l4/5/s1 pattern positive facet loading bilateral greatest over L4-S1 facets Extremity Common normals: normal to inspection and full ROM Neuro Common normals: oriented x3, CN's II-XII intact bilaterally, moves all extremities, no focal motor deficits, no sensory deficits noted and deep tendon reflexes 2+ bilaterally Sensorium/orientation: alert Motor exam: strength 5/5 throughout and no movement abnormalities noted Psych Common normals: mental status grossly normal, thought process normal, cooperative, affect normal, speech normal and activity/motor behavior normal Speech: normal speech Thought process: normal thought process Results Additional Findings Additional findings: If on a controlled substance or opioids, I have checked an [place] report on this patient and there are no aberrancies noted in the prescribing history.??If on a controlled substance or opioid a drug screen was completed and reviewed within the last year, and if there has not been a drug screen completed we ordered one today to monitor higher risk, state monitored pain medication use. As part of providing excellent, safe, comprehensive care, the following was completed at our patient's visit: 1. A medication reconciliation and review to ensure accurate knowledge of current/active medications, including asking our patients to inform us about any [id number] medications or herbal remedies/nutritional supplements/alternative remedies. 2. A review to specifically ensure our patients have had annual screening for screening for depression, screening for tobacco use, and screening for unhealthy alcohol use. For concerning screenings had a discussion with the patient, provided patient education, and recommended follow-up with primary care provider when appropriate. If patient noted with a risk of falling, they received education on strength, gait, and balance training to prevent future risk of falling. Assessment and Plan Assessment and Plan (1) Sacroiliitis: (2) Lumbar stenosis with neurogenic claudication: (3) Lumbar spondylosis: Plan pain well controlled defer lumbar TFESI or MBBs working towards RFA at this time continue HEP as tolerated continue PRN tylenol f/u 3 months, sooner if needed
== END 2024-08-31 13:32 | disposition home or self-care (01) ==
LOC: PM 13:31
PROVIDERS: PCP Family Medicine; Visit Provider Nurse Practitioner
DX: M46.1 Sacroiliitis, not elsewhere classified (principal); M48.062 Spinal stenosis, lumbar region with neurogenic claudication; M47.816 Spondylosis without myelopathy or radiculopathy, lumbar region
CPT/HCPCS: G0463

== ENCOUNTER 2024-12-06 10:52 | Outpatient (OUT) | payer MEDICARE, SELFPAY ==
--- NOTE | 2024-12-06 11:23 | PM.CN ---
Consult Note: HPI Data of Consult Patient: known to practice within the last 3 years Requesting Physician: Taylor Velazco NP Primary Care Provider: Thomas De Santiago MD Consult Narrative Reason for consult: establish Narrative: Venkat Cadena a pleasant 64 year old man presents for evaluation and management of chronic right hip and leg pain for greater than 8 years without initial injury or inticing event. Patient has failed to benefit from greater than 6 weeks of PT and hearing care professional, mild-moderate benefit to traction. hx of renal cancer with nephrectomy 2023, cannot take NSAIDs. patient has found no improvement with heat/ice, mild-moderate improvement with tylenol. Patient has an updated lumbar xray and MRI with results below, was evaluated by Dr Isidro who deemed pt nonsurgical and recommended right SIJ injection. recent right sij injection provided moderate relief less than 3 months. pain today 2/10 increasing to 6/10 with standing, walking, activity. cc:: CC: Taylor Velazco NP Review of Systems ROS Status of ROS 10 or more systems reviewed and unremarkable except as noted in history and below Musculoskeletal Reports: back pain and joint pain PFSH PFSH Medical History (Updated 08/16/24 @ 15:51 by Letitia Winston RN) Cancer of kidney ?C64.9 - Malignant neoplasm of unspecified kidney, except renal pelvis (ICD-10) Surgical History History of nephrectomy, left ?Z90.5 - Acquired absence of kidney (ICD-10) History of transurethral resection of prostate ?Z98.890 - Other specified postprocedural states (ICD-10) ?Z90.79 - Acquired absence of other genital organ(s) (ICD-10) Social History Smoking status: Former smoker Meds Home Medications and Allergies Home Medications ?Medication ?Instructions ?Recorded ?Confirmed ?Type allopurinol 300 mg tablet 300 mg PO DAILY 11/23/23 08/21/24 History tamsulosin 0.4 mg capsule 0.4 mg PO Q24H 11/23/23 08/21/24 History lisinopril 5 mg tablet 5 mg PO DAILY 08/10/24 08/21/24 History mirabegron 50 mg tablet,extended 50 mg PO DAILY 08/10/24 08/21/24 History release 24 hr (Myrbetriq) Allergies Allergy/AdvReac Type Severity Reaction Status Date / Time No Known Drug Allergies Allergy Verified 08/21/24 06:56 Exam Constitutional Documenting provider has reviewed patient's vital signs: yes Common normals: no apparent distress, oriented x3, healthy appearing, alert and well nourished General appearance: cooperative HENMT Common normals: normocephalic, hearing grossly normal bilaterally and moist oral mucous membranes Head and scalp: normocephalic Eye Common normals: PERRL Pupil: PERRL Neck & C-Spine Common normals: full ROM General: normal visual inspection Chest Common normals: inspection of chest normal Respiratory Common normals: normal respiratory effort, no retractions and no use of accessory muscles Back & Pelvis Lumbar spine/lower back: normal to inspection, lumbar ROM normal, pain with ROM and straight leg raise negative bilaterally; no lumbar spinal tenderness and no paraspinal muscle tenderness Sacroiliac joints: SI joint(s) abnormal Other: right positive linden(patricks), gaenslens, thigh thrust, compression test intermittent numbness tingling heaviness to RLE following l4/5/s1 pattern positive facet loading bilateral greatest over L4-S1 facets Extremity Common normals: normal to inspection and full ROM Neuro Common normals: oriented x3, CN's II-XII intact bilaterally, moves all extremities, no focal motor deficits, no sensory deficits noted and deep tendon reflexes 2+ bilaterally Sensorium/orientation: alert Motor exam: strength 5/5 throughout and no movement abnormalities noted Psych Common normals: mental status grossly normal, thought process normal, cooperative, affect normal, speech normal and activity/motor behavior normal Speech: normal speech Thought process: normal thought process Results Additional Findings Additional findings: If on a controlled substance or opioids, I have checked an [place]AR[place] report on this patient and there are no aberrancies noted in the prescribing history.??If on a controlled substance or opioid a drug screen was completed and reviewed within the last year, and if there has not been a drug screen completed we ordered one today to monitor higher risk, state monitored pain medication use. As part of providing excellent, safe, comprehensive care, the following was completed at our patient's visit: 1. A medication reconciliation and review to ensure accurate knowledge of current/active medications, including asking our patients to inform us about any [id number] medications or herbal remedies/nutritional supplements/alternative remedies. 2. A review to specifically ensure our patients have had annual screening for screening for depression, screening for tobacco use, and screening for unhealthy alcohol use. For concerning screenings had a discussion with the patient, provided patient education, and recommended follow-up with primary care provider when appropriate. If patient noted with a risk of falling, they received education on strength, gait, and balance training to prevent future risk of falling. Assessment and Plan Assessment and Plan (1) Sacroiliitis: (2) Lumbar stenosis with neurogenic claudication: (3) Lumbar spondylosis: Plan right SIJ injection with steroid rotation under fluoroscopy, risks vs benefits reviewed continue HEP as tolerated consider right L5/S1 TFESI in the future if needed f/u 2 weeks after injection
== END 2024-12-06 10:53 | disposition home or self-care (01) ==
LOC: PM 10:54
PROVIDERS: PCP Family Medicine; Visit Provider Nurse Practitioner
DX: M46.1 Sacroiliitis, not elsewhere classified (principal); M48.062 Spinal stenosis, lumbar region with neurogenic claudication; M47.816 Spondylosis without myelopathy or radiculopathy, lumbar region
CPT/HCPCS: G0463

== ENCOUNTER 2024-12-11 09:22 | Day surgery (SDC) | payer MEDICARE, SELFPAY ==
[2024-12-11 09:57] VITALS: BP 152/91; PULSE 65; TEMP 36.6; O2SAT 99
[2024-12-11 10:43] VITALS: BP 163/80; PULSE 67; O2SAT 99
[2024-12-11 10:44] VITALS: BP 173/90; PULSE 69; O2SAT 95
[2024-12-11] MEDS: BUPIVACAINE HCL 0.25% PF 25 MG/10 ML VIAL 2 ML INJ (10:44)
[2024-12-11] MEDS: METHYLPREDNISOLONE ACETATE 40 MG/ML VIAL INJ (10:45)
[2024-12-11] MEDS: IOHEXOL 240 MG/ML - 10 ML VIAL 12 MG INJ (10:45)
[2024-12-11] MEDS: LIDOCAINE HCL 2% 400 MG/20 ML MDV INJ (10:45)
--- NOTE | 2024-12-11 10:46 | W.PM.PROCNOT ---
Date of procedure: 12/11/24 Pre-op diagnosis: Pain due to right sacroiliitis Post-op diagnosis: same as pre-op Procedure: Procedure: Right sacroiliac joint injection Medications: Bupivacaine 0.25% 3cc, depomedrol 40mg After informed consent was obtained, the patient was brought to the medical procedure unit and placed in the prone position, when a timeout was completed verifying correct patient, procedure, site, positioning, implant, and/or special equipment.? The skin overlying the area was prepped and draped in standard sterile fashion using alcohol.? A 25-gauge needle was inserted towards the right sacroiliac joint under direct fluoroscopic imaging.? Needle tip was advanced until the joint was encountered.? We instilled a total of 2 mL of solution.? Postoperatively needles were removed.? The patient tolerated the procedure well without complication.? The patient reported reduction in pain symptoms postoperatively. Anesthesia: Local Surgeon: Marco Rivas Pathology: none sent Condition: stable Disposition: no change
== END 2024-12-11 10:51 | disposition home or self-care (01) ==
PROVIDERS: PCP Family Medicine; Visit Provider Anesthesiology
DX: M46.1 Sacroiliitis, not elsewhere classified (principal)
CPT/HCPCS: 27096; J0665; J1010; Q9966

== ENCOUNTER 2024-12-21 13:36 | Outpatient (OUT) | payer MEDICARE, SELFPAY ==
--- NOTE | 2024-12-21 13:56 | PM.CN ---
Consult Note: HPI Data of Consult Patient: known to practice within the last 3 years Requesting Physician: Taylor Velazco NP Primary Care Provider: Thomas De Santiago MD Consult Narrative Reason for consult: f/u Narrative: Alfonso Cadena a pleasant 64 year old male presents for evaluation and management of chronic right SIJ and low back pain. longstanding hx of lumbar and SIJ pain, was evaluated by Dr Isidro who does not recommend surgical intervention. recent right SIJ injection providing 75% improvement ongoing. has failed 6 weeks of provider guided HEP, tylenol, heat and ice. cannot take NSAIDs due to hx of kidney nephrectomy. today low back pain 2-3/10 increasing to 10/10 with standing, walking, stairs, bending, work, activity. Pain improved with sitting lying sleep. cc:: CC: Taylor Velazco NP Review of Systems ROS Status of ROS 10 or more systems reviewed and unremarkable except as noted in history and below Musculoskeletal Reports: back pain; Denies: extremity pain or joint pain PFSH PFS Medical History (Updated 08/16/24 @ 15:51 by Letitia Winston RN) Cancer of kidney ?C64.9 - Malignant neoplasm of unspecified kidney, except renal pelvis (ICD-10) Surgical History History of nephrectomy, left ?Z90.5 - Acquired absence of kidney (ICD-10) History of transurethral resection of prostate ?Z98.890 - Other specified postprocedural states (ICD-10) ?Z90.79 - Acquired absence of other genital organ(s) (ICD-10) Social History Smoking status: Former smoker Meds Home Medications and Allergies Home Medications ?Medication ?Instructions ?Recorded ?Confirmed ?Type allopurinol 300 mg tablet 300 mg PO DAILY 11/23/23 12/11/24 History tamsulosin 0.4 mg capsule 0.4 mg PO Q24H 11/23/23 12/11/24 History lisinopril 5 mg tablet 5 mg PO DAILY 08/10/24 12/11/24 History mirabegron 50 mg tablet,extended 50 mg PO DAILY 08/10/24 12/11/24 History release 24 hr (Myrbetriq) Allergies Allergy/AdvReac Type Severity Reaction Status Date / Time No Known Drug Allergies Allergy Verified 12/11/24 09:59 Exam Constitutional Documenting provider has reviewed patient's vital signs: yes Common normals: no apparent distress, oriented x3, healthy appearing, alert and well nourished General appearance: cooperative HENMT Common normals: normocephalic, hearing grossly normal bilaterally and moist oral mucous membranes Head and scalp: normocephalic Eye Common normals: PERRL Pupil: PERRL Neck & C-Spine Common normals: full ROM General: normal visual inspection Chest Common normals: inspection of chest normal Respiratory Common normals: normal respiratory effort, no retractions and no use of accessory muscles Back & Pelvis Lumbar spine/lower back: normal to inspection, pain with ROM and lumbar spinal tenderness; ROM not limited Sacroiliac joints: SI joints normal Other: negative right linden(patricks), gaenslens, thigh thrust, compression test Neuro Common normals: oriented x3, CN's II-XII intact bilaterally, moves all extremities, no focal motor deficits, no sensory deficits noted and deep tendon reflexes 2+ bilaterally Sensorium/orientation: alert Motor exam: strength 5/5 throughout and no movement abnormalities noted Psych Common normals: mental status grossly normal, thought process normal, cooperative, affect normal, speech normal and activity/motor behavior normal Speech: normal speech Thought process: normal thought process Results Additional Findings Additional findings: If on a controlled substance or opioids, I have checked an OARRS report on this patient and there are no aberrancies noted in the prescribing history.??If on a controlled substance or opioid a drug screen was completed and reviewed within the last year, and if there has not been a drug screen completed we ordered one today to monitor higher risk, state monitored pain medication use. As part of providing excellent, safe, comprehensive care, the following was completed at our patient's visit: 1. A medication reconciliation and review to ensure accurate knowledge of current/active medications, including asking our patients to inform us about any [id number] medications or herbal remedies/nutritional supplements/alternative remedies. 2. A review to specifically ensure our patients have had annual screening for screening for depression, screening for tobacco use, and screening for unhealthy alcohol use. For concerning screenings had a discussion with the patient, provided patient education, and recommended follow-up with primary care provider when appropriate. If patient noted with a risk of falling, they received education on strength, gait, and balance training to prevent future risk of falling. Portions of this note may have been carried over from the previous visit and updated as appropriate. Please note this office utilizes paper charting in addition to the electronic medical record. A list of current medications, vitals, and PMH is available there as the clinical staff outside of myself do not have access to [employer] charting during the clinic day operations. As part of providing quality comprehensive care the current medications, vitals, and PMH were reviewed in the paper chart. Assessment and Plan Assessment and Plan (1) Sacroiliitis: (2) Lumbar spondylosis: Assessment and Plan: The patient has had over 3 months of moderate to severe low back and right SIJ pain with functional impairment and inadequate response to conservative care including NSAIDS (unless there are contraindication such as concurrent blood thinners), multiple oral or topical pain medications, and home exercise program/physical therapy.? Patient has completed >6 weeks of guided home exercise program and/or formal physical therapy program without relief of their symptoms.? The Oswestry Disability Index was completed, and the patient scored a 20%.? The patient noted the following:?? moderate to severe pain impacting ability to sit, walk and travel We discussed the risks and benefits of the procedure with the patient, and we are NOT planning on using sedation as outlined in the guidelines from Medicare unless there is a documented reason that sedation would be strongly recommended.?? ?The procedure will be completed with fluoroscopic guidance.? Plan bilateral L4-5 L5-S1 MBB x2 working towards RFA continue HEP as tolerated continue PRN tylenol and icy hot f/u after each injection
== END 2024-12-21 13:37 | disposition home or self-care (01) ==
LOC: PM 13:36
PROVIDERS: PCP Family Medicine; Visit Provider Nurse Practitioner
DX: M46.1 Sacroiliitis, not elsewhere classified (principal); M47.816 Spondylosis without myelopathy or radiculopathy, lumbar region
CPT/HCPCS: G0463

== ENCOUNTER 2025-01-08 09:12 | Day surgery (SDC) | payer MEDICARE, SELFPAY ==
--- OUTSIDE RECORDS SUMMARY | 2025-01-08 09:22 | XMS_ITS | CCD ---
Author Organization [facility] [place] [facility] Team Providers Care Mine Safety Manager Name Role Phone ARIE, MARYLIN Unavailable Unavailable ARIE, MARYLIN Unavailable Unavailable ARIE, MARYLIN Unavailable Unavailable HOY ADAN Unavailable Unavailable ADAN LAMAR Primary Care Unavailable DAVEY JARA Admitting Unavailable DEMARCO JARARICK Consulting Unavailable DEMARCO JARARICK Attending Unavailable ADAN LAMAR Consulting Unavailable ADAN LAMAR Attending Unavailable ADAN LAMAR Admitting Unavailable DANICA MUNROE Admitting Unavailable DANICA MUNROE Consulting Unavailable DANICA MUNROE Attending Unavailable Adan Lamar Primary Care Physician ADAN LAMAR Primary Care Unavailable Adan Lamar MD Primary Care Provider [phone] Adan Lamar MD Primary Care Provider [phone] Unavailable Primary Care Provider UnavailAdan Lomeli MD Primary Care Provider [phone] MD Adan Lamar Primary Care Provider [phone] MD Davey Jara Attending Provider [phone] Davey Jara Admitting Unavailable Davey Jara Attending Unavailable Adan Lamar Primary Care Unavailable ARIRAI ROBERTS Admitting Unavailable ARIRAI ROBERTS E Attending Unavailable Orzech, Jerica X Admitting Unavailable Orzech, Jerica X Attending Unavailable Orzech, Jerica X Attending Unavailable JARA, Davey R Attending Unavailable JARA, Davey R Attending Unavailable JAAR, Davey R Attending Unavailable JARA, Davey R Attending Unavailable JARA, Davey R Admitting Unavailable JARA, Davey R Attending Unavailable WARMINSKI, JADA Referring Unavailable ADAN LAMAR Primary Care Unavailable WARMINSKI, JADA Referring Unavailable ADAN LAMAR Primary Care Unavailable WARMINSKI, JADA Referring Unavailable ADAN LAMAR Primary Care Unavailable WARMINSKI, JADA Referring Unavailable HOY, ADAN M Primary Care Unavailable WARMINSKI, JADA Referring Unavailable HOY, ADAN M Primary Care Unavailable Adan Lamar MD Primary Care Provider [phone] IZZY MUNROE Attending Unavailable IZZY MUNROE Attending Unavailable Rob WILLIAMSON, Marco Gregg Attending Unavailable Rob WILLIAMSON, Marco Gregg Attending Unavailable HOY, ADAN M Primary Care Unavailable MELQUIADES, JONNY Referring Unavailable HOY, ADAN M Primary Care Unavailable MELQUIADES, JONNY Referring Unavailable HOY, ADAN M Primary Care Unavailable HOY, ADAN M Primary Care Unavailable CHARLOTTE LINDSEY Attending Unavailable CHARLOTTE LINDSEY Admitting Unavailable HOY, ADAN M Primary Care Unavailable GADEGBEKU, CRYSTAL Attending Unavailable CHARLOTTE LINDSEY Attending Unavailable HOY, ADAN M Primary Care Unavailable GADEGBEKU, CRYSTAL Referring Unavailable GADEGBEKU, CRYSTAL Attending Unavailable HOY, ADAN M Primary Care Unavailable CHARLOTTE LINDSEY Attending Unavailable HOY, ADAN M Primary Care Unavailable WARMINSKI, JADA Attending Unavailable HOY, ADAN M Primary Care Unavailable WARMINSKI, JADA Referring Unavailable HOY, ADAN M Primary Care Unavailable WARMINSKI, JADA Referring Unavailable GADEGBEKU, CRYSTAL Attending Unavailable HOY, ADAN M Primary Care Unavailable GADEGBEKU, CRYSTAL Referring Unavailable HOY, ADAN M Primary Care Unavailable MELQUIADES, JONNY Referring Unavailable HOY, ADAN M Primary Care Unavailable MELQUIADES, JONNY Referring Unavailable HOY, ADAN M Primary Care Unavailable WARMINSKI, JADA Referring Unavailable CHARLOTTE LINDSEY Attending Unavailable HOY, ADAN M Primary Care Unavailable CHARLOTTE LINDSEY Referring Unavailable HOY, ADAN M Primary Care Unavailable HOY, ADAN M Primary Care Unavailable GATO BANDA Attending Unavailable HOY, ADAN M Primary Care Unavailable CHARLOTTE LINDSEY Referring Unavailable CHARLOTTE LINDSEY Attending Unavailable HOY, ADAN M Primary Care Unavailable GADEGBEKU, CRYSTAL Referring Unavailable HOY, ADAN M Primary Care Unavailable Allergies Allergy Classification Reported Allergen(s) Allergy Type Date of Onset Reaction(s) Facility (4 sources) Ciprofloxacin; Translations: [ciprofloxacin] Drug Allergy 04-29-2023 Unknown [facility] (1 source) Unable to Assess Drug allergy (disorder) 08-23-2024 [facility] Repository Medications Current Medications Medication Drug Class(es) Dates Sig (Normalized) Sig (Original) aspirin 81 mg oral tablet (13 sources) Platelet Aggregation Inhibitor, Nonsteroidal Anti-inflammatory Drug Start: 08-07-2019 take 1 tablet by mouth once daily aspirin 81 mg oral tablet 81 mg = 1 tab(s), Oral, Daily Start Date: 08/07/19 Status: Ordered ASPIRIN 81 MG ch ewable tablet Chew 81 mg 1 (one) time. Active docusate sodium 100 mg oral capsule (2 sources) Start: 01-07-2024 End: 01-22-2024 take 1 capsule by mouth twice daily docusate sodium (COLACE) 100 mg capsule Take 1 capsule by mouth two times a day for 15 days. 30 capsule 0 01/07/2024 01/22/2024 Active Comment on above: Take 1 capsule by mo [facility] two times a day for 15 days. [...] guidelines link. lisinopril 5 mg oral tablet (15 sources) Angiotensin Converting Enzyme Inhibitor Start: 4 take 1 tablet by mouth once daily lisinopril (ZESTRIL) 5 mg tablet Take 1 tablet by mouth once daily. 90 tablet 3 06/30/2024 Active Start: 04-11-2024 take 1 tablet by prabhjot th once daily lisinopril (ZESTRIL) 5 mg tablet Take 1 tablet by mouth once daily. 30 tablet 3 04/11/2024 Active lisinopril 20 MG tablet Take by mouth Daily Active 24 hr mirabegron 50 mg extended release oral tablet (10 sources) beta3-Adrenergic Agonist Start: 04-27-2023 take 1 tablet by mouth once daily Myrbetriq 50 mg oral tablet, extended release 50 mg = 1 tab(s), Oral, Daily, # 90 tab(s), Refills(s) 3, Pharmacy: [facility], 178, cm, 02/18/23 13:55:00 EDT, Height/Length Dosing, 86.5, kg, 02/18/23 13:55:00 EDT, Weight Dosing Start Date: 04/27/23 Status: Ordered Multivitamin preparation (8 sources) Start: 09-24-2023 multivitamin Refill(s) 0 Start Date: 09/24/23 Status: Ordered omeprazole 40 mg delayed release oral capsule (2 sources) Proton Pump Inhibitor Start: 05-05-2023 take 1 capsule by mouth once daily omeprazole 40 mg Cap-DR 40 mg = 1 cap(s), Oral, Daily, # 30 cap(s), Refills(s) 2, Pharmacy: [facility]/pharmacy #[id number], 178, cm, 05/05/23 8:17:00 EDT, Height/Length Dosing, 87, kg, 05/05/23 8:17:00 EDT, Weight Dosing Start Date: 05/05/23 Status: Ordered 24 hr oxybutynin chloride 5 mg extended release oral tablet (1 source) Cholinergic Muscarinic Antagonist Start: 12-15-2024 take 1 tablet by mouth once daily DITROPAN XL 5 mg 24 hr tablet Take 1 tablet by mouth once daily. 30 tablet 11 12/15/2024 Active oxyCODONE hydrochloride 5 mg oral tablet (1 [...] with other pain medications. polyethylene glycol 3350 726261 mg / potassium chloride 1480 mg / sodium bicarbonate 5720 mg / sodium chloride 92221 mg powder for oral solution (2 sources) Osmotic Laxative Start: 07-12-2023 take 2 doses by mouth every other day NuLYTELY Jama oral powder for reconstitution See Instructions, 2 EA, Refill(s) 0, 2 day colon prep., [facility]/pharmacy #[id number], 178, cm, 07/12/23 14:08:00 EDT, Height/Length Dosing, 87.5, kg, 07/12/23 14:08:00 EDT, Weight Dosing Start Date: 07/12/23 Status: Ordered Start: 05-05-2023 NuLYTELY Cherr y oral powder for reconstitution See Instructions, 1 EA, Refill(s) 0, See physician instructions prior to procedure., [facility]/pharmacy #[id number], 178, cm, 05/05/23 8:17:00 EDT, Height/Length Dosing, 87, kg, 05/05/23 8:17:00 EDT, Weight Dosing Start Date: 05/05/23 Status: Ordered sildenafil 100 mg oral tablet (20 sources) Phosphodiesterase 5 Inhibitor Start: 09-22-2021 End: 01-30-2024 sildenafil (VIAGRA) 100 mg tablet Take 100 mg by mouth as needed. 09/22/2021 Active Comment on above: take 1 tablet by prabhjot as directed 1 HOUR PRIOR TO SEXUAL ACTIVITY tamsulosin hydrochloride 0.4 mg oral capsule (20 sources) alpha-Adrenergic Radames Start: 12-21-2023 tamsu losin (FLOMAX) 0.4 mg Take 1 capsule by mouth once daily. 30 minutes after the same meal each day. 90 capsule 11 12/15/2024 Active Start: 11-16-2023 End: 12-16-2023 take 1 capsule by mouth once daily tamsulosin 0.4 mg Cap 0.4 mg = 1 cap(s), Oral, Daily, X 30 day(s), # 30 cap(s), Refills(s) 0, Pharmacy: [facility]/pharmacy #[id number], 177, cm, 11/11/23 8:06:00 EST, Height/Length Dosing, 86.5, kg, 11/11/23 8:06:00 EST, Weight Dosing Start Date: 11/16/23 Stop Date: 12/16/23 Status: Ordered Comment on above: Take 1 capsule by mo [facility] daily at bedtime. terbinafine 250 mg oral tablet (7 sources) Allylamine Antifungal Start: 08-07-202 3 terbinafine (LamISIL) 250 MG tablet 1 capsule 1 (one) time each day at the same time 07/05/2023 Active tiZANidine 4 mg oral tablet (8 sources) Central alpha-2 Adrenergic Agonist Start: 3 End: 4 take 2 tablets by mouth at bedtime tiZANidine (Zanaflex) 4 MG tablet 2 tablets Orally at bedtime for 15 07/05/2023 Active Comment on above: 2 tablets Orally at bedtime for 15 vibegron (GEMTESA) 75 mg tablet (20 sources) Start: vibegron (GEMTESA) 75 mg tablet Take by mouth. 11/23/2023 Active Start: 11-23-2023 vibegron (GEMT JESSICA) 75 mg tablet Take by mouth. 0 11/23/2023 Active Comment on above: Take by mouth. Vibegron (Gemtesa) 75 MG tablet (2 sources) Start: 08-29-2022 take 1 tablet by mouth in the morning Vibegron (Gemtesa) 75 MG tablet Take 1 tablet by mouth in the morning. 08/29/2022 Active vibegron 75 MG Oral Tablet [Gemtesa] (11 sources) Start: 09-09-2023 End: 09-03-2024 take 1 tablet by mouth once daily Gemtesa 75 mg oral tablet 75 mg = 1 tab(s), Oral, Daily, X 90 day(s), # 90 tab(s), Refills(s) 3, Pharmacy: [facility], 178, cm, 07/12/23 14:08:00 EDT, Height/Length Dosing, 87.5, kg, 07/12/23 14:08:00 EDT, Weight Dosing Start Date: 09/09/23 Stop Date: 09/03/24 Status: Ordered Start: 04-28-2023 End: 04-22-2024 take 1 tablet by mouth once daily Gemtesa 75 mg oral tablet 75 mg = 1 tab(s), Oral, Daily, X 90 day(s), # 90 tab(s), Refills(s) 3, Pharmacy: [facility]/pharmacy #[id number], 178, cm, 02/18/23 13:55:00 EDT, Height/Length Dosing, 86.5, kg, 02/18/23 13:55:00 EDT, Weight Dosing Start Date: 04/28/23 Stop Date: 04/22/24 Status: Ordered Start: 08-31-2022 End: 08-26-2023 take 1 tablet by mouth once daily Gemtesa 75 mg oral tablet 75 mg = 1 tab(s), Oral, Daily, X 90 day(s), # 90 tab(s), Refills(s) 3, Pharmacy: [facility], 177, cm, 09/22/21 14:37:00 EDT, [...] Refills(s) 0 Start Date: 09/28/22 Status: Ordered Start: 08-29-2022 take 1 tablet by prabhjot th in the morning Allopurinol 200 MG tablet Take 1 tablet by mouth in the morning. 08/29/2022 Active take 1 tablet by prabhjot th once daily allopurinol (ZYLOPRIM) 300 mg tablet 1 tablet [...] procedure, # 2 cap(s), Refills(s) 0, Pharmacy: [facility]/pharmacy #[id number], 177, cm, 09/28/22 14:37:00 EDT, Height/Length Dosing, 87, kg, 09/28/22 14:37:00 EDT, Weight Dosing Start Date: 09/28/22 Status: Ordered ciprofloxacin 500 mg oral tablet (3 sources) Quinolone Antimicrobial Start: 11-26-20 Cipro 500 mg Tab 500 mg = 1 tab(s), Oral, As Directed, Take 1 pill the day before procedure, then 1 pill after the procedure., # 2 tab(s), Refills(s) 0, Pharmacy: [facility] #[id number], 177, cm, 11/11/23 8:06:00 EST, Height/Length Dosing, 86.5, kg, 11/11/23 8:06:00 EST, Weight Dosing Start Date: 11/26/23 Status: Ordered Methocarbamol (3 sources) Muscle Relaxant Start: 01-07-20 End: 01-25-20 24 take 1 tablet by [...] mouth three times a day as needed. Problems Active Problems Problem Classification Problem Date Documented Da te Episodic/Chronic Allergic reactions (11 sources) Eczema 07-12-2019 Episodic Anxiety disorders (11 sources) Panic attack 07-12-2019 Chronic Cancer of kidney and renal pelvis (8 sources) Renal cell carcinoma; Translations: [Malignant neoplasm of left kidney, except renal pelvis] Onset: 4 01-25-2024 Chronic Cancer of kidney and renal pelvis (9 sources) History of malignant neoplasm of retroperitoneum; Translations: [Personal history of other malignant neoplasm of kidney] Onset: 4 04-26-2024 Episodic Cancer; other and unspecified primary (11 sources) History of bladder neoplasm 01-27-2021 Episodic Cataract (1 source) Bilateral cortical age-related cataract eyes; Translations: [Cortical age-related cataract, bilateral] 11-23-2024 Chronic Chronic kidney disease (6 sources) Chronic kidney disease stage 3B ; Translations: [Stage 3b chronic kidney disease (HCC)] 01-25-2024 Chronic Chronic kidney disease (3 sources) Chronic kidney disease; Translations: [Stage 3b chronic kidney disease (HCC)] Onset: 4 Diabetes mellitus with complications (11 sources) Erectile dysfunction due to type 2 diabetes mellitus 01-27-2021 Chronic Esophageal disorders (20 sources) Ulcer of esophagus; Translations: [Ulcer of esophagus without bleeding] Onset: 3 Chronic Gout and other crystal arthropathies (20 sources) Gout; Translations: [Gout, unspecified] Onset: 4 07-12-2019 Chronic Hemorrhoids (11 sources) Hemorrhoids 07-12-2019 Episodic Hyperplasia of prostate (20 sources) Benign prostatic hypertrophy with outflow obstruction; Translations: [Benign prostatic hyperplasia with lower urinary tract symptoms] Onset: 3 11-19-2020 Chronic Other aftercare (2 sources) Long-term current use of anticoagulant; 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] Onset: 3 Episodic Other diseases of bladder and urethra (11 sources) Urethral stricture 07-12-2019 Episodic Other diseases of kidney and ureters (20 sources) Renal mass; Translations: [Other specified disorders [...] diseases of kidney and ureters (2 sources) Urinary tract obstruction; Translations: [Other obstructive and [...] Onset: 3 Episodic Other male genital disorders (20 sources) Male erectile dysfunction, unspecified; Translations: [Erectile dysfunction] Onset: 3 Chronic Other male genital disorders (2 sources) Secondary erectile dysfunction; Translations: [Male erectile dysfunction, unspecified] Onset: 5 09-05-2024 Chronic Other nutritional; endocrine; and metabolic disorders (11 sources) Body mass index 25-29 - overweight 11-19-2020 Episodic Other screening for suspected conditions (not mental disorders or infectious disease) (20 sources) Raised prostate specific antigen; Translations: [Screening for malignant neoplasm of colon done] Onset: 3 10-31-2019 Episodic Residual codes; unclassified (20 sources) Sleep apnea; Translations: [Sleep apnea, unspecified] Onset: 4 07-12-2019 Chronic Residual codes; unclassified (11 sources) Reduced libido 01-27-2021 Episodic Residual codes; unclassified (6 sources) History of nephrectomy; Translations: [Acquired absence of kidney] 01-25-2024 Episodic Retinal detachments; defects; vascular occlusion; and retinopathy (11 sources) 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 Unclassified (2 sources) Unknown / UNK(Unknown) Onset: 7 Unclassified (11 sources) Drug therapy finding 10-31-2019 Unclassified (10 sources) Patient encounter status 05-05-2023 Past or Other Problems Problem Classification Problem Date Documented Da te Episodic/Chronic Cancer of bladder (4 sources) History of malignant neoplasm of bladder; Translations: [Personal history of malignant neoplasm of bladder] Onset: 09-24-2023 Episodic Fracture of lower limb (4 sources) Displaced fracture of distal phalanx of right great toe, subsequent encounter for fracture with routine healing; Translations: [DISP FX OF DIST PHALANX OF R GREAT TOE, 7THD] Onset: 08-19-2017 Episodic Genitourinary symptoms and ill-defined conditions (20 sources) Urgent desire to urinate; Translations: [Chris hematuria] Onset: 11-11-2023 07-12-2019 Episodic Immunizations and screening for infectious [...] acquired; Translations: [Acquired cyst of kidney] Onset: 12-21-2023 Episodic Other gastrointestinal disorders (20 sources) History of esophageal ulcer; Translations: [Personal history of other diseases of the digestive system] Onset: 01-06-2024 07-12-2023 Episodic Other upper respiratory disease (2 sources) Bleeding from nose; Translations: [Epistaxis] Onset: 04-29-2023 04-29-2023 Episodic Other upper respiratory disease (2 sources) Nasal septum finding; Translations: [Other specified disorders of nose and nasal sinuses] Onset: 05-03-2023 05-03-2023 Episodic Pancreatic disorders (not diabetes) (3 sources) Cyst of pancreas; Translations: [Cyst of pancreas] Onset: 04-26-2024 04-26-2024 Episodic Residual codes; unclassified (2 sources) Acquired absence of kidney; Translations: [H/O left nephrectomy] Onset: 06-07-2024 Episodic Results Test Name Value Interpretation Reference Range Facility UA DIP, URINE (POC)on 2024 BILIRUBIN UA (POCT) Negative Negative [facility] CLARITY UA (POCT) Clear [facility] COLOR UA (POCT) Yellow [facility] GLUCOSE UA (POCT) Negative Negative mg/dL [facility] Hemoglobin Ql (U) Negative Negative [facility] KETONE UA (POCT) Negative Negative mg/dL [facility] LEUKOCYTES UA (POCT) Negative Negative [facility] NITRITE UA (POCT) Negative Negative [facility] PH UA (POCT) 6.0 4.5 - 8.0 [facility] Protein Ql (U) Negative Negative mg/dL [facility] SPECIFIC GRAVITY UA (POCT) 1.010 1.005 - 1.030 [facility] UROBILINOGEN UA (POCT) 0.2 Normal E.U./dL [facility] Location:[address], [place], [place], [address] [facility] POINT [facility] CARE [facility] ISOPSA ASSAY FOR UROLOGY USE ONLYon 12-11-2024 INTERPRETATION View results in Scan tish Documents link when available. Normal [facility] Comment on above: Order Comment: Speci men Type: BLOOD SPECIMENOrdering Facility: [facility] Address: [address] [place] [address] Performed By: #### I SOPSA ####[facility]CLIA [id number] [address] [facility] [place] [address] ISOPSA INDEX 5.6 Normal [facility] Comment on above: Order Comment: Speci men Type: BLOOD SPECIMENOrdering Facility: [facility] Address: [address] [place] [address] Performed By: #### I SOPSA ####[facility]CLIA [id number] [address] [address] TPSA RESULTS 6.080 Normal [facility] Comment on above: Order Comment: Speci men Type: BLOOD SPECIMENOrdering Facility: [facility] Address: [address] [place] [address] Performed By: #### I SOPSA ####[facility]CLIA [id number] [address] [place] [address] [facility] HNO ID: [id number] Author: CHUNG CONTRERAS, rail washer Service: Radiology Author Type: Package Delivery Room Service Runner Type: [facility] Filed: 10/27/2024 10:47 Note Text: Radiology Service Progress Note PATIENT NAME: Ashley Ledesma DATE OF SERVICE: October 27, 2024 TIME: 10:46 AM PATIENT IDENTITY VERIFICATION COMPLETED USING TWO [...] PATIENT PRESENTS WITH AN 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 ADMINISTRATION: No RADIOLOGY DEPARTMENT: MR; Exam(s) Completed: Body: Renal PERIPHERAL IV DATA: Site assessment: Clean,Dry and Intact, Site disposition Discontinued SIGNED BY: Chung Stevenson, rail washer October 27, 2024 10:46 AM Normal [facility] CBC panel Auto (Bld)on 10-27 Erythrocyte distribution width (RBC) [Ratio] 13.1 % 11.5 - 15.0 % [facility] Hematocrit (Bld) [Volume fraction] 42.8 % 39.0 - 51.0 % [facility] Hemoglobin (Bld) [Mass/Vol] 14.0 g/dL 13.0 - 17.0 g/dL [facility] Interpretation and review of laboratory results Abnormal [facility] MCH (RBC) [Entitic mass] 31.3 pg 26.0 - 34.0 pg [facility] MCHC (RBC) [Mass/Vol] 32.7 g/dL 30.5 - 36.0 g/dL [facility] MCV (RBC) [Entitic vol] 95.7 fL 80.0 - 100.0 fL [facility] Nucleated RBC (Bld) [#/Vol] NINF [facility] Platelet mean volume (Bld) [Entitic vol] 12.6 fL 9.0 - 12.7 fL [facility] Platelets (Bld) [#/Vol] 145 10*3/uL Low [facility] RBC (Bld) [#/Vol] 4.47 10*6/uL 4.20 - 6.0 0 m/uL [facility] WBC (Bld) [#/Vol] 6.23 10*3/uL [facility] Erythrocyte distribution width (RBC) [Ratio] 13.1 % Normal 11.5-15.0 [facility] Comment on above: Order Comment: Tianna yuan Type: BLOOD SPECIMEN Ordering Facility: [facility] Address: [address] [place] [address] Performed By: #### 5 8410-2 #### [facility] CLIA [id number] [address] [place] [facility] Hematocrit (Bld) [Volume fraction] 42.8 % Normal 39.0-51.0 [facility] Comment on above: Order Comment: Speci men Type: BLOOD SPECIMEN Ordering Facility: [facility] Address: [address] [place] [address] Performed By: #### 5 8410-2 #### [facility] [place] [id number] [address] [place] [address] [place] Hemoglobin (Bld) [Mass/Vol] 14.0 g/dL Normal 13.0-17.0 [facility] Comment on above: Order Comment: Speci men Type: BLOOD SPECIMEN Ordering Facility: [facility] Address: [address] [place] [address] Performed By: #### 5 8410-2 #### [facility] [place] [id number] [address] [place] [address] [place] MCH (RBC) [Entitic mass] 31.3 pg Normal 26.0-34.0 [facility] Comment on above: Order Comment: Speci men Type: BLOOD SPECIMEN Ordering Facility: [facility] Address: [address] [place] [address] Performed By: #### 5 8410-2 #### [facility] [place] [id number] [place] MCHC (RBC) [Mass/Vol] 32.7 g/dL Normal 30.5-36.0 [facility] Comment on above: Order Comment: Speci men Type: BLOOD SPECIMEN Ordering Facility: [facility] Address: [address] [place] [address] Performed By: #### 5 8410-2 #### [facility] [place] [id number] [address] [place] [address] [place] MCV (RBC) [Entitic vol] 95.7 fL Normal 80.0-100.0 [facility] Comment on above: Order Comment: Speci men Type: BLOOD SPECIMEN Ordering Facility: [facility] Address: [address] [place] [address] Performed By: #### 5 8410-2 #### [facility] [place] [id number] [address] [place] Nucleated RBC (Bld) [#/Vol] 10*3/uL Normal <0.01 [facility] Comment on above: Order Comment: Speci men Type: BLOOD SPECIMEN Ordering Facility: [facility] Address: [address] [place] [address] Performed By: #### 5 8410-2 #### [facility] CLIA [id number] [place] [address] [place] Platelet mean volume (Bld) [Entitic vol] 12.6 fL Normal 9.0-12.7 [facility] Comment on above: Order Comment: Speci men Type: BLOOD SPECIMEN Ordering Facility: [facility] Address: [address] [place] [address] Performed By: #### 5 8410-2 #### [facility] CLIA [id number] [place] [address] [place] Platelets (Bld) [#/Vol] 145 10*3/uL Low 150-400 [facility] Comment on above: Order Comment: Speci men Type: BLOOD SPECIMEN Ordering Facility: [facility] Address: [address] [place] [address] Performed By: #### 5 8410-2 #### [facility] CLIA [id number] [address] [place] [address] [place] RBC (Bld) [#/Vol] 4.47 10*6/uL Normal 4.20-6.00 [facility] Comment on above: Order Comment: Speci men Type: BLOOD SPECIMEN Ordering Facility: [facility] Address: [address] [place] [address] Performed By: #### 5 8410-2 #### [facility] [facility] CLIA [id number] [id number] [place] WBC (Bld) [#/Vol] 6.23 10*3/uL Normal 3.70-11.00 [facility] Comment on above: Order Comment: Speci men Type: BLOOD SPECIMEN Ordering Facility: [facility] Address: [address] [place] [address] Performed By: #### 5 8410-2 #### [facility] CLIA [id number] [address] [place] [address] CHEST WO IVCONon 10-27-[address] CHEST WO IVCON * * *Final Report* * * DATE OF EXAM: Oct 27 2024 9:38AM [facility] 0541 - CT CHEST WO IVCON / PROCEDURE REASON: History of renal cell cancer * * * * Physician Interpretation * * * * EXAMINATION: CHEST CT WITHOUT CONTRAST CLINICAL HISTORY: Renal cell carcinoma Technique: Spiral CT acquisition of the chest from the thoracic inlet to the upper abdomen without contrast. MQ: [id number]_6 CT Radiation dose: Integrated Dose-length product (DLP) for this visit = 467 mGy*cm CT Dose Reduction Employed: Automated exposure control(AEC) and iterative recon Comparison: 04/25/2024, 01/05/2024 RESULT: Limitations: None. Lines, tubes, and devices: None. Lung parenchyma and airways: Mild biapical fibrosis. There is no pneumothorax or endobronchial lesion. There is mild dependent atelectasis. A calcified granuloma is again seen within the right lower lobe (series 3, image #150). Additionally, there are stable tiny pulmonary nodules. For example, there is a stable, approximately 3 mm subpleural nodule seen within the posterior segment of the right upper lobe (series 2, image #48). Stable 2 mm nodule within the posterior segment right upper lobe (series 2, image #54). There is no new pulmonary nodule. Pleural space: There is no pleural effusion. Lower neck, lymph nodes, and mediastinum: Mild prominent soft tissue density within the anterior mediastinum is likely thymic in origin. There are no pathologically enlarged axillary, mediastinal, or hilar lymph nodes. Heart, pericardium, and thoracic vessels: Stable ectasia of the ascending thoracic aorta, measuring approximately 4.1 cm. There is no aneurysm of the thoracic arch or descending thoracic aorta. Atherosclerotic calcifications are seen within the thoracic aorta and predominantly the LAD. The heart is normal in size. There is a trace pericardial effusion. Bones and soft tissues: There is no destructive bony lesion. A bone islands are seen within the left humeral head. Upper abdomen: Please refer to separately dictated MRI report for abdominal findings. IMPRESSION: 1. No acute pulmonary process is identified. Stable tiny pulmonary nodules, measuring up to 3 mm in size. No new pulmonary nodule is identified. 2. No chris lymphadenopathy is seen within the chest. 3. Stable ectasia of the ascending thoracic aorta, measuring approximately 4.1 cm. Wind Up Worker: SHASHI Transcribe Date/Time: Oct 29 2024 9:03A Dictated by : EDUARDO GALDAMEZ MD This examination was interpreted and the report reviewed and electronically signed by: EDUARDO GALDAMEZ MD on Oct 29 2024 9:09AM EST [id number] Normal [facility] Comprehensive metabolic 2000 panelon 10-27-2024 Albumin [Mass/Vol] 4.5 g/dL Normal 3.9-4.9 [facility] Comment on above: Order Comment: Tianna yuan Type: BLOOD SPECIMEN Ordering Facility: [facility] Address: [address] [place] [address] Performed By: #### 2 4323-8, 2777- #### [facility] CLIA [id number] [address] [place] [address] [place] ALP [Catalytic activity/Vol] 76 U/L Normal 38-113 [facility] Comment on above: Order Comment: Tianna yuan Type: BLOOD SPECIMEN Ordering Facility: [facility] Address: [address] [place] [address] Performed By: #### 2 4323-8, 277- #### [facility] CLIA [id number] [place] [address] [place] ALT [Catalytic activity/Vol] 10 U/L Normal 10-54 [facility] Comment on above: Order Comment: Carlottai lissy Type: BLOOD SPECIMEN Ordering Facility: [facility] Address: [address] [place] [address] Performed By: #### 2 4323-8, 2777- #### [facility] CLIA [id number] [address] [place] [address] [place] Anion gap [Moles/Vol] 13 mmol/L Normal 8-15 [facility] Comment on above: Order Comment: Carlottai lissy Type: BLOOD SPECIMEN Ordering Facility: [facility] Address: [address] [place] [address] Performed By: #### 2 4323-8, 2776-11 #### [facility] CLIA [id number] [address] [place] [address] [place] AST [Catalytic activity/Vol] 20 U/L Normal 14-40 [facility] Comment on above: Order Comment: Speci men Type: BLOOD SPECIMEN Ordering Facility: [facility] Address: [address] [place] [address] Performed By: #### 2 4323-8, 2776-11 #### [facility] CLIA [id number] [address] [place] [address] [place] Bilirubin [Mass/Vol] 1.1 mg/dL Normal 0.2-1.3 [facility] Comment on above: Order Comment: Speci men Type: BLOOD SPECIMEN Ordering Facility: [facility] Address: [address] [place] [address] Performed By: #### 2 4323-8, 2776-11 #### [facility] IA [id number] [address] [place] [address] [place] Calcium [Mass/Vol] 10.3 mg/dL High 8.5-10.2 [facility] Comment on above: Order Comment: Speci men Type: BLOOD SPECIMEN Ordering Facility: [facility] Address: [address] [place] [address] Performed By: #### 2 4323-8, 2776-11 #### [facility] CLIA [id number] [address] [place] [address] [place] Chloride [Moles/Vol] 102 mmol/L Normal 98-107 [facility] Comment on above: Order Comment: Speci men Type: BLOOD SPECIMEN Ordering Facility: [facility] Address: [address] [place] [address] Performed By: #### 2 4323-8, 2776-11 #### [facility] CLIA [id number] [address] [place] [address] [place] CO2 [Moles/Vol] 24 mmol/L Normal 22-30 [facility] Comment on above: Order Comment: Tianna yuan Type: BLOOD SPECIMEN Ordering Facility: [facility] Address: [address] [place] [address] Performed By: #### 2 4323-8, 277- #### [facility] CLIA [id number] [facility] [place] [address] [place] Creatinine [Mass/Vol] 1.66 mg/dL High 0.73-1.22 [facility] Comment on above: Order Comment: Tianna men Type: BLOOD SPECIMEN Ordering Facility: [facility] Address: [address] [id number] Performed By: #### 2 4323-8, 27705-29 #### [facility] CLIA [id number] [facility] [place] [address] [place] Creatinine and Glomerular filtration rate.predicted panel (S/P/Bld) 45 mL/min/1.73m??? Low >=60 [facility] Comment on above: Order Comment: Tianna yuan Type: BLOOD SPECIMEN Ordering Facility: [facility] Address: [address] [place] [address] Result Comment: Alexandra mated Glomerular Filtration Rate [...] reflect actual GFR. Performed By: #### 2 4323-8, 27705-29 #### [facility] CLIA [id number] [facility] [place] [address] [place] Glucose [Mass/Vol] 93 mg/dL Normal 74-99 [facility] Comment on above: Order Comment: Tianna yuan Type: BLOOD SPECIMEN Ordering Facility: [facility] Address: [address] [id number] Result Comment: The [place] Diabetes Association (ADA) provides guidance for cutoff [...] Standards of Medical Care in Diabetes 2016, [place] [employer] Association. Diabetes Care. 2016.39(Suppl 1). Performed By: #### 2 4323-8, 277- #### [facility] CLIA [id number] [address] [place] [address] [place] Potassium [Moles/Vol] 4.8 mmol/L Normal 3.7-5.1 [facility] Comment on above: Order Comment: Tianna yuan Type: BLOOD SPECIMEN Ordering Facility: [facility] Address: [address] [place] [address] Performed By: #### 2 4323-8, 2776-11 #### [facility] CLIA [id number] [address] [place] [address] [place] Protein [Mass/Vol] 6.9 g/dL Normal 6.3-8.0 [facility] Comment on above: Order Comment: Tianna yuan Type: BLOOD SPECIMEN Ordering Facility: [facility] Address: [address] [place] [address] Performed By: #### 2 4323-8, 2776-11 #### [facility] CLIA [id number] [address] [place] [address] [place] Sodium [Moles/Vol] 139 mmol/L Normal 136-144 [facility] Comment on above: Order Comment: Tianna yuan Type: BLOOD SPECIMEN Ordering Facility: [facility] Address: [address] [place] [address] Performed By: #### 2 4323-8, 277- #### [facility] CLIA [id number] [address] [place] [address] [place] Urea nitrogen [Mass/Vol] 27 mg/dL High 9-24 [facility] Comment on above: Order Comment: Speci men Type: BLOOD SPECIMEN Ordering Facility: [facility] Address: [address], [place] [address] Performed By: #### 2 4323-8, 2777-1 #### [facility] CLIA [id number] [place], [place] [id number] [place] [address] OF [facility] MR Abdomen WO and W contrast Karen 10-27-2024 IMPRESSION: No recurrence or abdominal metastasis. Stable pancreatic cystic lesions, likely sidebranch IPMN. Wind Up Worker: PSCB Transcribe Date/Time: Oct 27 2024 11:55A Dictated by : SHASTA GILBERT MD This examination was interpreted and the report reviewed and electronically signed by: SHASTA GILBERT MD on Oct 27 2024 12:11PM EST [facility] * * *Final Report* * * DATE OF EXAM: Oct 27 2024 11:08AM [facility] 0689 - MRI ABDOMEN WO/W IVCON / PROCEDURE REASON: History of renal cell cancer * * * * Physician Interpretation * * * * MRI ABDOMEN WITHOUT AND WITH IV CONTRAST CLINICAL HISTORY: History of renal cell cancer TECHNIQUE: Magnet: 3.0T scanner. Multiplanar MRI of the abdomen with multiple sequences, performed before and after intravenous contrast. Contrast: Intravenous: 18 ml of Dotarem COMPARISON: 04/25/2024 RESULT: Liver: Normal morphology. No hepatic steatosis. 1.2 cm right superior hepatic lobe cyst. Biliary: No intrahepatic or extrahepatic bile duct dilation. No biliary filling defect. Gallbladder is normal. Spleen: No mass. No splenomegaly. Pancreas: Multiple pancreatic cystic lesions. For example: Stable 1.9 x 1.8 cm unilocular pancreatic body/tail lesion (3:21); 1.5 cm stable multicystic pancreatic neck lesion (2:23). Additional small cystic lesions are also stable. No main duct dilation. No enhancing lesion. Adrenals: No mass. Kidneys: Left nephrectomy without recurrence. Right kidney contains cortical and parapelvic cysts. No enhancing mass. GI: No dilated bowel or wall thickening along imaged segments. Lymph nodes: No abdominal lymphadenopathy. Mesentery / Peritoneum / Retroperitoneum: No ascites or mass. Vasculature: The celiac axis and SMA are patent. The portal vein and branches, splenic vein, SMV, and hepatic veins are patent. No aortic or iliac artery aneurysm. Bones/Soft Tissues: No suspicious lesion. Lower chest: Chest imaging performed will be reported separately. [facility] Provider, Hmuaira Carlos [facility] - 10/27/2024 * * *Final Report* * * DATE OF EXAM: Oct 27 2024 11:08AM [facility] 0689 - MRI ABDOMEN WO/W IVCON / PROCEDURE REASON: History of renal cell cancer * * * * Physician Interpretation * * * * MRI ABDOMEN WITHOUT AND WITH IV CONTRAST CLINICAL HISTORY: History of renal cell cancer TECHNIQUE: Magnet: 3.0T scanner. Multiplanar MRI of the abdomen with multiple sequences, performed before and after intravenous contrast. Contrast: Intravenous: 18 ml of Dotarem COMPARISON: 04/25/2024 RESULT: Liver: Normal morphology. No hepatic steatosis. 1.2 cm right superior hepatic lobe cyst. Biliary: No intrahepatic or extrahepatic bile duct dilation. No biliary filling defect. Gallbladder is normal. Spleen: No mass. No splenomegaly. Pancreas: Multiple pancreatic cystic lesions. For example: Stable 1.9 x 1.8 cm unilocular pancreatic body/tail lesion (3:21); 1.5 cm stable multicystic pancreatic neck lesion (2:23). Additional small cystic lesions are also stable. No main duct dilation. No enhancing lesion. Adrenals: No mass. Kidneys: Left nephrectomy without recurrence. Right kidney contains cortical and parapelvic cysts. No enhancing mass. GI: No dilated bowel or wall thickening along imaged segments. Lymph nodes: No abdominal lymphadenopathy. Mesentery / Peritoneum / Retroperitoneum: No ascites or mass. Vasculature: The celiac axis and SMA are patent. The portal vein and branches, splenic vein, SMV, and hepatic veins are patent. No aortic or iliac artery aneurysm. Bones/Soft Tissues: No suspicious lesion. Lower chest: Chest imaging performed will be reported separately. IMPRESSION IMPRESSION: No recurrence or abdominal metastasis. Stable pancreatic cystic lesions, likely sidebranch IPMN. Wind Up Worker: SHASHI Transcribe Date/Time: Oct 27 2024 11:55A Dictated by : SHASTA GILBERT MD This examination was interpreted and the report reviewed and electronically signed by: SHASTA GILBERT MD on Oct 27 2024 12:11PM EST [facility] Study observation (narrative) [facility] MR Abdomen WO and W contrast IVOrdered By: [facility] Provider on 10-27-2024 [facility] MRI ABDOMEN WO/W IVCONon MRI ABDOMEN WO/W IVCON * * *Final Report* * * DATE OF EXAM: Oct 27 2024 11:08AM [facility] 0689 - MRI ABDOMEN WO/W IVCON / PROCEDURE REASON: History of renal cell cancer * * * * Physician Interpretation * * * * MRI ABDOMEN WITHOUT AND WITH IV CONTRAST CLINICAL HISTORY: History of renal cell cancer TECHNIQUE: Magnet: 3.0T scanner. Multiplanar MRI of the abdomen with multiple sequences, performed before and after intravenous contrast. Contrast: Intravenous: 18 ml of Dotarem COMPARISON: 04/25/2024 RESULT: Liver: Normal morphology. No hepatic steatosis. 1.2 cm right superior hepatic lobe cyst. Biliary: No intrahepatic or extrahepatic bile duct dilation. No biliary filling defect. Gallbladder is normal. Spleen: No mass. No splenomegaly. Pancreas: Multiple pancreatic cystic lesions. For example: Stable 1.9 x 1.8 cm unilocular pancreatic body/tail lesion (3:21); 1.5 cm stable multicystic pancreatic neck lesion (2:23). Additional small cystic lesions are also stable. No main duct dilation. No enhancing lesion. Adrenals: No mass. Kidneys: Left nephrectomy without recurrence. Right kidney contains cortical and parapelvic cysts. No enhancing mass. GI: No dilated bowel or wall thickening along imaged segments. Lymph nodes: No abdominal lymphadenopathy. Mesentery / Peritoneum / Retroperitoneum: No ascites or mass. Vasculature: The celiac axis and SMA are patent. The portal vein and branches, splenic vein, SMV, and hepatic veins are patent. No aortic or iliac artery aneurysm. Bones/Soft Tissues: No suspicious lesion. Lower chest: Chest imaging performed will be reported separately. IMPRESSION: No recurrence or abdominal metastasis. Stable pancreatic cystic lesions, likely sidebranch IPMN. Wind Up Worker: SHASHI Transcribe Date/Time: Oct 27 2024 11:55A Dictated by : SHASTA GILBERT MD This examination was interpreted and the report reviewed and electronically signed by: SHASTA GILBERT MD on Oct 27 2024 12:11PM EST [id number] [facility] NURSING PROGon 10-27-2024 NURSING PROG HNO ID: [id number] Author: ARMEN SAMANIEGO RN Service: Radiology Author Type: Registered Nurse Type: Nursing Progress Note Filed: 10/27/2024 10:10 Note Text: Radiology Service Progress Note DATE OF SERVICE: October 27, 2024 TIME: 10:03 AM PATIENT WEIGHT: 190 LBS PATIENT IDENTITY VERIFICATION COMPLETED USING TWO [...] peripheral IV was started in the Right forearm with a Angio cath: 20 gauge. IV SITE APPEARANCE: Clean,Dry and Intact SIGNATURE: Armen Samaniego RN PATIENT NAME: Ashley Ledesma DATE: October 27, 2024 TIME: 10:03 AM [facility] Phosphate SerPl-mCncon 10-27 Phosphate [Mass/Vol] 3.4 mg/dL Normal 2.7-4.8 [facility] Comment on above: Order Comment: Speci men Type: BLOOD SPECIMEN Ordering Facility: [facility] Address: [address] [place] [address] Performed By: #### 2 4323-8, 2777-1 #### [facility] CLIA [id number] [facility]. [address] OF [facility] CNOVon 10-13-2024 CNOV Office Visit (KIDMMN ) ASHLEY LEDESMA ([id number]) 1960 M Date Time Provider Department 10/13/24 11:40 AM JAYNE SILVEIRA During your visit today, we recorded the following information about you: Temperature Pulse Blood pressure Weight 97.7 degrees 64/minute 157/93 86.5 kg Height 1.778 m Jayne Silveira MD 10/27/2024 5:19 PM Signed Department of [facility] SERVICE DATE: 10/13/2024 SERVICE TIME: 11:26 AM CHIEF COMPLAINT: CKD, solitary kidney HPI: Mr. Ledesma is a 64 year old male who presents with confirmed by cystatin C measurement after renal mass reduction (eGFRcr 47 and eGFRcys 57, combined 54). This is better than predicted by baseline creatinine. Home BP readings 115 - 130/60 - 80s Creatinine Date Value Ref Range Status 09/18/2024 1.70 (H) 0.73 - 1.22 mg/dL Final 06/16/2024 1.79 (H) 0.73 - 1.22 mg/dL Final 06/07/2024 1.53 (H) 0.73 - 1.22 mg/dL Final 03/24/2024 1.63 (H) 0.73 - 1.22 mg/dL Final SOCIAL HISTORY: Social History Tobacco Use Smoking status: Former Types: Cigarettes Passive exposure: Never Smokeless tobacco: Never Tobacco comments: Been over 30 years since had a cigarette Substance Use Topics Alcohol use: Yes Comment: may have a drink 2x per week Drug use: Never MEDICATIONS: mirabegron (MYRBETRIQ) 50 mg Tb24 Take 50 mg by mouth once daily. sildenafil (VIAGRA) 100 mg tablet Take 100 mg by mouth as needed. lisinopril (ZESTRIL) 5 mg tablet Take 1 tablet by mouth once daily. allopurinol (ZYLOPRIM) 300 mg tablet 1 tablet Orally Once a day for 90 days tamsulosin (FLOMAX) 0.4 mg Take 1 capsule by mouth daily at bedtime. vibegron (GEMTESA) 75 mg tablet Take by mouth. ALLERGIES: ALLERGIES No Known Allergies PHYSICAL EXAM: BP 157/93 (BP Site: Left Arm, BP Position: Sitting, BP Cuff Size: Regular Adult) Pulse 64 Temp 36.5 ?C (97.7 ?F) (Oral) Ht 177.8 cm (5' 10 ) Wt 86.5 kg (190 lb 11.2 oz) BMI 27.36 kg/m? BP - standardized method Pulse 1 BP #1: 153/94 Pulse #1: 64 beats/min 2 BP #2 : 158/94 Pulse #2 : 64 beats/min 3 BP #3 : 162/91 Pulse #3 : 64 beats/min Average Average BP: 157/93 Average Pulse: 64 beats/min BP cuff location BP cuff location: Left upper arm BP cuff size BP cuff size: regular adult Constitutional: No acute distress, Responsive, Normal habitus, [...] to palpation bilaterally. Normal to percussion bilaterally. Musculoskeletal: No clubbing or cyanosis of digits., Normocephalic., and No muscle weakness, joint tenderness, or joint effusions. Psychiatric: Alert and oriented x self, place, time, and setting Normal mood/affect DATA: Diagnostic tests reviewed for today's visit: Blood work, imaging studies, and office notes were reviewed in epic Latest Reference Range AND Units 09/18/24 14:43 Sodium 136 - 144 mmol/L 145 (H) Potassium 3.7 - 5.1 mmol/L 4.3 Chloride 98 - 107 mmol/L 108 (H) CO2 22 - 30 mmol/L 30 BUN 9 - 24 mg/dL 28 (H) Creatinine 0.73 - 1.22 mg/dL 1.70 (H) Glucose 74 - 99 mg/dL 96 Calcium 8.5 - 10.2 mg/dL 9.7 Phosphorus 2.7 - 4.8 mg/dL 3.1 Albumin 3.9 - 4.9 g/dL 4.5 Anion Gap 8 - 15 mmol/L 7 (L) eGFR >=60 mL/min/1.73m? 44 (L) (H): Data is abnormally high (L): Data is abnormally low ASSESSMENT: 64 year old male who presents with AVANI, esophageal ulcer, BPH, s/p left nephrectomy for RCC with baseline pre-nephx creatinine 1.3 and symmetrical renal function with evidence of stable CKD stage 3a -b. Renal function remains stable. Metabolic status and volume status are appropriate. He has [facility] with well-documented home BP in optimal range. PLAN: - urine protein assessment with PCR at next visit. - continue current antihypertensive regimen including lisinopril - assess uric acid at next visit for gout management Parts of A/P may have been copied from prior entry and amended as needed. It reflects full evaluations and pathophysiology processes involved. I spent a total of 30 minutes on the date of the service which included preparing to see the patient, [id number] patient care, completing clinical documentation, obtaining and/or reviewing separately obtained history, performing a medically appropriate examination, counseling and educating the patient/family/caregiver, and ordering medications, tests, or procedures. Visit CPLX Inherent EANDM Associated with [facility] Srvc ([id number]) SIGNATURE: MD IRMA Dunham (more content not included)... Normal [facility] UA DIP, URINE (POC)on 2023 BILIRUBIN UA (POCT) Negative Negative [facility] CLARITY UA (POCT) Clear [facility] COLOR UA (POCT) Yellow [facility] GLUCOSE UA (POCT) Negative Negative mg/dL [facility] Hemoglobin Ql (U) Negative Negative [facility] Interpretation and review of laboratory results Abnormal [facility] KETONE UA (POCT) Negative Negative mg/dL [facility] LEUKOCYTES UA (POCT) Negative Negative [facility] NITRITE UA (POCT) Negative [facility] PH UA (POCT) 6.0 4.5 - 8.0 [facility] Protein Ql (U) Negative Negative mg/dL [facility] SPECIFIC GRAVITY UA (POCT) <=1.005 Abnormal 1.005 - 1.030 [facility] UROBILINOGEN UA (POCT) 0.2 Normal E.U./dL [facility] Location:[facility] jose j, [address] [place] [address], [address] [place] [address] POINT OF CARE [facility] Renal function 2000 panelon 09-18-2024 Albumin [Mass/Vol] 4.5 g/dL Normal 3.9-4.9 [facility] Comment on above: Order Comment: Speci men Type: BLOOD SPECIMENOrdering Facility: [facility] Address: [address] [place] [address] Performed By: #### 2 4362-6 ####[facility] [id number] [place] [address] Anion gap [Moles/Vol] 7 mmol/L Low 8-15 [facility] Comment on above: Order Comment: Speci men Type: BLOOD SPECIMENOrdering Facility: [facility] Address: [address] [place] [address] Performed By: #### 2 4362-6 ####[facility] [id number] [place] [address] Calcium [Mass/Vol] 9.7 mg/dL Normal 8.5-10.2 [facility] Comment on above: Order Comment: Speci men Type: BLOOD SPECIMENOrdering Facility: [facility] Address: [address] [place] [address] Performed By: #### 2 4362-6 ####[facility] [id number] [place] [address] Chloride [Moles/Vol] 108 mmol/L High 98-107 [facility] Comment on above: Order Comment: Speci men Type: BLOOD SPECIMENOrdering Facility: [facility] Address: [address] [place] [address] Performed By: #### 2 4362-6 ####[facility] [id number] [place] [address] CO2 [Moles/Vol] 30 mmol/L Normal 22-30 [facility] Comment on above: Order Comment: Speci men Type: BLOOD SPECIMENOrdering Facility: [facility] Address: [address] [place] [address] Performed By: #### 2 4362-6 ####[facility] LABCLIA [id number] [place] [address] Creatinine [Mass/Vol] 1.70 mg/dL High 0.73-1.22 [facility] Comment on above: Order Comment: Tianna yuan Type: BLOOD SPECIMENOrdering Facility: [facility] Address: [address] [place], [place] [address] Performed By: #### 2 4362-6 ####[facility] LABCLIA [id number] [place] [address] Creatinine and Glomerular filtration rate.predicted panel (S/P/Bld) 44 mL/min/1.73m??? Low >=60 [facility] Comment on above: Order Comment: Tianna yuan Type: BLOOD SPECIMENOrdering Facility: [facility] Address: [address] [place] [address] Result Comment: Alexandra mated Glomerular Filtration Rate [...] actual GFR. Performed By: #### 2 4362-6 ####[facility] LABCLIA [id number] [place] [address] Glucose [Mass/Vol] 96 mg/dL Normal 74-99 [facility] Comment on above: Order Comment: Tianna yaun Type: BLOOD SPECIMENOrdering Facility: [facility] Address: [address] [place], [place] [address] Result Comment: The [place] Diabetes Association (ADA) provides guidance for cutoff [...] Standards of Medical Care in Diabetes 2016, [place] Diabetes Association. Diabetes Care. 2016.39(Suppl 1). Performed By: #### 2 4362-6 ####[facility] LABCLIA [id number] [place] [address] Phosphate [Mass/Vol] 3.1 mg/dL Normal 2.7-4.8 [facility] Comment on above: Order Comment: Speci men Type: BLOOD SPECIMENOrdering Facility: [facility] Address: [address] [place] [address] Performed By: #### 2 4362-6 ####[facility] LABCLIA [id number] [place] [address] Potassium [Moles/Vol] 4.3 mmol/L Normal 3.7-5.1 [facility] Comment on above: Order Comment: Speci men Type: BLOOD SPECIMENOrdering Facility: [facility] Address: [address] [place] [address] Performed By: #### 2 4362-6 ####[facility] LABCLIA [id number] [place] [address] Sodium [Moles/Vol] 145 mmol/L High 136-144 [facility] Comment on above: Order Comment: Speci men Type: BLOOD SPECIMENOrdering Facility: [facility] Address: [address] [place] [address] Performed By: #### 2 4362-6 ####[facility] LABCLIA [id number] [place] [address] Urea nitrogen [Mass/Vol] 28 mg/dL High 9-24 [facility] Comment on above: Order Comment: Speci men Type: BLOOD SPECIMENOrdering Facility: [facility] Address: [address] [place] [address] Performed By: #### 2 4362-6 ####[facility] LABCLIA [id number] [place] [address] Reminderson 09-06-2024 Reminders Reminders From: Nohemi Gomez To: ERASTO Soto Jara; Sent: 07/26/2024 08:55:05 EDT Show up: 09/29/2024 08:54:00 EDT Subject: Cysto/fish/cytol Due Date/Time: 10/23/2024 08:55:00 EST Reminder/Recall Patient is due n Nov 2024 for 1 year cysto/fish/cytol (bt ck) Patient is continuing care with Dr. Lindsey at [facility]. [facility] CNOVon 09-05-2024 CNOV Office Visit (UROLMN ) ASHLEY LEDESMA ([id number]) 1960 Date Time Provider Department 09/05/24 1:50 PM CHARLOTTE LINDSEY During your visit today, we recorded the following information about you: Jada Santo APRN.HAND SPLITTER 09/06/2024 7:25 AM Signed CHIEF COMPLAINT: elevated PSA HPI Ashley Ledesma is a 64 year old male with history of left renal mass discovered incidentally upon gross hematuria work up s/p left nephrectomy 01/06/24, BPH s/p TURP (~10 years ago per patient), and bladder lesion (path benign) who presents for elevated PSA. No known family history of prostate cancer. Has been previously monitoring PSA with Dr. Jara and wishes to transfer care to [facility]. History of prostate biopsy 08/22/[address] Jara- monisha revealed benign prostatic tissue. PSA prior to biopsy was 2.6 Most recent PSA 4.27 ng/mL (06/27/24). MRI PROSTATE 08/24/2024 IMPRESSION: No MRI evidence of clinically significant prostate cancer. FINDINGS: Prostate Dimensions: 4.8 x 3.5 x 4.2 cm. Prostate Volume: 36 mL Other urologic history notable for left renal mass s/p left robotic nephrectomy on 01/06/[address] Lindsey. Path: RCC, chromophobe subtype, pT3a. Scheduled for surveillance imaging in 09/2024. Interval Hx: Overall, doing well. Hx of urinary frequency, urgency, and urge incontinence which he states are well managed on Tamsulosin and Myrbetriq. Takes Sildenafil PRN for ED. LABS 06/27/2024 PSA 4.27 ng/mL 07/08/2023 PSA 3.42 ng/mL 06/11/2022 PSA 3.54 ng/mL 07/10/2021 PSA 3.52 ng/mL 08/31/2020 PSA 4.4 ng/mL 07/28/2019 PSA 2.6 ng/mL 03/11/2018 PSA 1.9 ng/mL 12/25/2016 PSA 1.4 ng/mL Creatinine Date Value Ref Range Status 06/16/2024 1.79 (H) 0.73 - 1.22 mg/dL Final 06/07/2024 1.53 (H) 0.73 - 1.22 mg/dL Final 03/24/2024 1.63 (H) 0.73 - 1.22 mg/dL Final 01/09/2024 1.70 (H) 0.73 - 1.22 mg/dL Final IMAGING MRI ABDOMEN WO/W IVCON 04/25/2024 IMPRESSION: Status [...] renal cell carcinoma. 2. No thoracic lymphadenopathy. REVIEW OF SYSTEMS GENERAL:No weight loss, malaise or fevers., SEE HPI GENITOURINARY: See HPI The remainder of the ROS was negative. HISTORIES No past medical history on file. No past surgical history on file. No family history on file. SOCIAL HISTORY Social History Tobacco Use Smoking status: Former [...] No current facility-administered medications for this visit. PHYSICAL EXAMINATION General appearance: Well appearing, alert, in no acute distress, and well-hydrated, well nourished Lungs: no wheezing or rhonchi Abdomen: Abdomen soft, non-tender. Bowel sounds normal. No masses, organomegaly Genitourinary: SUJATA: non-tender; no palpable nodules; prostate gland enlarged, smooth, and symmetric The sensitive examination was discussed with the Patient or Patient's Authorized Field Mechanic/Site Lead. As applicable, any other physician, advance practice provider, medical student, or other health professional student that will be observing or involved in the sensitive examination for educational or training purposes was discussed with the Patient or Authorized Field Mechanic/Site Lead. The Patient or Authorized Field Mechanic/Site Lead has agreed to proceed with the sensitive examination. 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 Normal [facility] URINALYSIS, REFLEX MICROSCOP ICon 09-05-2024 Bilirubin Ql (U) Negative Negative [facility] Clarity (Unsp spec) Clear Clear Sina [facility] Color (U) Yellow Yellow [facility] Glucose Test strip (U) [Mass/Vol] Negative Negative [facility] Hemoglobin Ql (U) Negative Negative [facility] Interpretation and review of laboratory results Normal [facility] Ketones Ql (U) Negative Negative [facility] Leukocyte esterase Test strip Ql (U) Negative Negative [facility] Nitrite Ql (U) Negative Negative [facility] pH (U) 5.5 [pH] NINF - 8.5 [facility] Protein (U) [Mass/Vol] Negative Negative [facility] Specific gravity (U) [Rel density] 1.007 1.005 - 1.030 [facility] Urobilinogen Ql (U) 0.2 EU/dL 0.2-1.0 EU/dL [facility] Bilirubin Ql (U) Negative Normal [facility] Comment on above: Order Comment: Speci men Type: URINE SPECIMENOrdering Facility: [facility] Address: [address] [place] [address] Performed By: #### L [id number] ####[facility] LABCLIA [id number] [place] [address] [place] Clarity (Unsp spec) Clear Normal Clear [facility] Comment on above: Order Comment: Speci men Type: URINE SPECIMENOrdering Facility: [facility] Address: [address] [place] [address] Performed By: #### L [id number] ####[facility] LABCLIA [id number] [place] [address] [place] Color (U) Yellow Normal Yellow [facility] Comment on above: Order Comment: Speci men Type: URINE SPECIMENOrdering Facility: [facility] Address: [address] [place] [address] Performed By: #### L [id number] ####[facility] LABCLIA [id number] [place] [address] [place] Glucose Test strip (U) [Mass/Vol] Negative Normal Negative [facility] Comment on above: Order Comment: Speci men Type: URINE SPECIMENOrdering Facility: [facility] Address: [address] [place] [address] Performed By: #### L [id number] ####[facility] LABCLIA [id number] [place] [address] [place] Hemoglobin Ql (U) Negative Normal Negative [facility] Comment on above: Order Comment: Speci men Type: URINE SPECIMENOrdering Facility: [facility] Address: [address] [place] [address] Performed By: #### L [id number] ####[facility] LABCLIA [id number] [place] [address] [place] Ketones Ql (U) Negative Normal Negative [facility] Comment on above: Order Comment: Speci men Type: URINE SPECIMENOrdering Facility: [facility] Address: [address] [place] [address] Performed By: #### L [id number] ####[facility] LABCLIA [id number] [place] [address] [place] Leukocyte esterase Test strip Ql (U) Negative Normal Negative [facility] Comment on above: Order Comment: Speci men Type: URINE SPECIMENOrdering Facility: [facility] Address: [address] [place] [address] Performed By: #### L [id number] ####[facility] LABCLIA [id number] [place] [address] [place] Nitrite Ql (U) Negative Normal Negative [facility] Comment on above: Order Comment: Speci men Type: URINE SPECIMENOrdering Facility: [facility] Address: [address] [place] [address] Performed By: #### L [id number] ####[facility] LABCLIA [id number] [place] [address] [place] pH (U) 5.5 [pH] Normal <8.5 [facility] Comment on above: Order Comment: Speci men Type: URINE SPECIMENOrdering Facility: [facility] Address: [address] [place] [address] Performed By: #### L [id number] ####[facility] LABCLIA [id number] [id number] [address] [place] Protein (U) [Mass/Vol] Negative Normal Negative [facility] Comment on above: Order Comment: Speci men Type: URINE SPECIMENOrdering Facility: [facility] Address: [address] [place] [address] Performed By: #### L [id number] ####[facility] LABIA [id number] [place] [address] [place] Specific gravity (U) [Rel density] 1.007 Normal 1.005-1.030 [facility] Comment on above: Order Comment: Speci men Type: URINE SPECIMENOrdering Facility: [facility] Address: [address] [place] [address] Performed By: #### L [id number] ####[facility] LABIA [id number] [place] [address] [place] Urobilinogen Ql (U) 0.2 EU/dL Normal 0.2-1.0 EU/dL [facility] Comment on above: Order Comment: Speci men Type: URINE SPECIMENOrdering Facility: [facility] Address: [address] [place] [address] Performed By: #### L [id number] ####[facility] LABIA [id number] [place] [address] [place] MR prostate wo/w conon 08-24 MR prostate wo/[place] [address] MRI Report Signed Patient: Ashley Ledesma MR#: [id number] : 1960 Acct:[id number] Age/Sex: 64 / M ADM Date: 08/23/24 Loc: MR Room: Type: [facility] Attending Dr: Davey Jara MD Copies to: Davey Jara MD Ordering Provider: Davey Jara MD Date of Service: 08/23/24 MR/MR prostate wo/w con: R97.20 EXAMINATION: MR prostate wo/w con HISTORY: Elevated PSA. COMPARISON: NONE TECHNIQUE: Multiparametric imaging of the prostate gland was performed with IV contrast. FINDINGS: Prostate Dimensions: 4.8 x 3.5 x 4.2 cm. Prostate Volume: 36 mL Peripheral Zone: Heterogenous inT2 signal suggestive of prior prostatitis. No suspicious T2 or ADC map abnormality is identified to suggest prostate malignancy. Central/Transitional Zone: BPH changes. Seminal Vesicles: Unremarkable Neurovascular bundles: Unremarkable. Lymphadenopathy: No evidence of lymphadenopathy. Bladder: No focal lesion. Bowel: The visualized bowel is without acute abnormality. Peritoneal Cavity: Trace free fluid. Bones: No suspicious bony lesion. MR/MR prostate wo/w con IMPRESSION: No MRI evidence of clinically significant prostate cancer. Impression dictated by: Sina Rocha Jr., D.ODmitry08/24/2024 9:24 AM Dictation Location: [place] [address] Transcribed By: [facility] 08/24/24923 Dictated By: Sina Rocha Jr, DO 08/24/24907 Signed By: 08/24/24923 Normal [facility] ISTAT XRay CREon 08-23-2024 ISTAT GFR 41.256 Normal [facility] Comment on above: Result Comment: PERF ORMED BY: [place] [address] PATHOLOGIST HEALTHCARE FINANCIAL ANALYST PEDRO AMBROSE M.D. Performed By: #### I SCRE #### [address] No Panel InformationOrdered By: Davey Jara on 08-23-2024 Bedside Estimated GFR (eGFR) 41.256 [facility] Whole blood creatinine measu rementOrdered By: Davey Jara on 08-23-2024 Creatinine [Mass/Vol] 1.8 mg/dL High 0.6-1.3 [facility] Comment on above: ER/ESD physician is notified/shown all ISTAT results.Critical values may be confirmed by laboratory testing ifdeemed necessary by ER attending doctor. Result Comment: ER/E SD physician is notified/shown all ISTAT results. Critical values may be confirmed by laboratory testing if deemed necessary by ER attending doctor. Performed By: #### I SCRE #### [facility] [address] Renal function 2000 panelon 06-16-2024 Albumin [Mass/Vol] 4.7 g/dL Normal 3.9-4.9 [facility] Comment on above: Order Comment: Speci men Type: BLOOD SPECIMENOrdering Facility: [facility] Address: [address] [place] [address] Performed By: #### 2 4362-6 ####[facility] LABCLIA [id number] [place] [address] Anion gap [Moles/Vol] 8 mmol/L Normal 8-15 [facility] Comment on above: Order Comment: Speci men Type: BLOOD SPECIMENOrdering Facility: [facility] Address: [address] [place] [address] Performed By: #### 2 4362-6 ####[facility] LABCLIA [id number] [place] [address] Calcium [Mass/Vol] 10.5 mg/dL High 8.5-10.2 [facility] Comment on above: Order Comment: Speci men Type: BLOOD SPECIMENOrdering Facility: [facility] Address: [address] [place] [address] Performed By: #### 2 4362-6 ####[facility] LABCLIA [id number] [place] [address] Chloride [Moles/Vol] 105 mmol/L Normal 98-107 [facility] Comment on above: Order Comment: Speci men Type: BLOOD SPECIMENOrdering Facility: [facility] Address: [address] [place] [address] Performed By: #### 2 4362-6 ####[facility] LABCLIA [id number] [place] [address] CO2 [Moles/Vol] 29 mmol/L Normal 22-30 [facility] Comment on above: Order Comment: Speci men Type: BLOOD SPECIMENOrdering Facility: [facility] Address: [address] [place] [address] Performed By: #### 2 4362-6 ####[facility] LABCLIA [id number] [place] [address] Creatinine [Mass/Vol] 1.79 mg/dL High 0.73-1.22 [facility] Comment on above: Order Comment: Speci men Type: BLOOD SPECIMENOrdering Facility: [facility] Address: [address] [place] [address] Performed By: #### 2 4362-6 ####[facility] LABCLIA [id number] [place] [address] Creatinine and Glomerular filtration rate.predicted panel (S/P/Bld) 42 mL/min/1.73m??? Low >=60 [facility] Comment on above: Order Comment: Speci men Type: BLOOD SPECIMENOrdering Facility: [facility] Address: [address] [place] [address] Result Comment: Alexandra mated Glomerular Filtration Rate [...] actual GFR. Performed By: #### 2 4362-6 ####[facility] LABIA [id number] [place] [address] Glucose [Mass/Vol] 102 mg/dL High 74-99 [facility] Comment on above: Order Comment: Speci men Type: BLOOD SPECIMENOrdering Facility: [facility] Address: [address] [place] [address] Result Comment: The [place] Diabetes Association (ADA) provides guidance for cutoff [...] Standards of Medical Care in Diabetes 2016, [place] Diabetes Association. Diabetes Care. 2016.39(Suppl 1). Performed By: #### 2 4362-6 ####[facility] LABCLIA [id number] [place] [address] Phosphate [Mass/Vol] 3.1 mg/dL Normal 2.7-4.8 [facility] Comment on above: Order Comment: Speci men Type: BLOOD SPECIMENOrdering Facility: [facility] Address: [address] [place] [address] Performed By: #### 2 4362-6 ####[facility] LABCLIA [id number] [place] [address] Potassium [Moles/Vol] 4.7 mmol/L Normal 3.7-5.1 [facility] Comment on above: Order Comment: Speci men Type: BLOOD SPECIMENOrdering Facility: [facility] Address: [address] [place] [address] Performed By: #### 2 4362-6 ####[facility] LABCLIA [id number] [place] [address] Sodium [Moles/Vol] 142 mmol/L Normal 136-144 [facility] Comment on above: Order Comment: Speci men Type: BLOOD SPECIMENOrdering Facility: [facility] Address: [address] [place] [address] Performed By: #### 2 4362-6 ####[facility] LABCLIA [id number] [place] [address] Urea nitrogen [Mass/Vol] 29 mg/dL High 9-24 [facility] Comment on above: Order Comment: Speci men Type: BLOOD SPECIMENOrdering Facility: [facility] Address: [address] [place], [place] [address], [place] [address] Performed By: #### 2 4362-6 ####[facility] [id number] [place] [address] Provider Letteron 06-13-2024 Provider Letter Provider Letter June 13, 2024 ASHLEY LEDESMA [address] [place] [address] : 1960 Dear Ashley, We are reaching out to speak with you about scheduling your 1 year repeat colonoscopy for May of 2024. We are now scheduling for June or later with Dr. Bullock. Please contact our office at [phone] if you would like to proceed with scheduling. Sincerely, [facility] Normal [facility] CNOVon 06-07-2024 CNOV Office Visit (KIDMMN ) ASHLEY LEDESMA ([id number]) 1960 M Date Time Provider Department 06/07/24 11:40 AM JAYNE SILVEIRA During your visit today, we recorded the following information about you: Pulse Blood pressure Weight Height 74/minute 165/87 84.5 kg 1.778 m Jayne Silveira MD 06/13/2024 8:40 PM Signed Department of Kidney Medicine Medical Specialties [facility] SERVICE DATE: 06/07/2024 SERVICE TIME: 11:55 AM [...] studies, and office notes were reviewed in [facility] Latest Reference Range AND Units 06/07/24 [...] Color Yellow Yellow Clarity Clear Clear Specific [place], Ur 1.005 - 1.030 1.008 pH, Urine [...] appear uncontrolled (more content not included)... Normal [facility] CYSTATIN Con 06-07-2024 Cystatin C [Mass/Vol] 1.23 mg/L High 0.61 - 0.95 mg/L [facility] Cystatin C eGFR 58 Low - PINF [facility] Comment on above: Estimated Glomerular Filtration Rate (eGFR) is calculated using the 2012 CKD-EPI cystatin C equation. This equation utilizes serum cystatin C, sex, and age as parameters. The cystatin C assay has traceable calibration to the ERM-DA471/IFCC reference material. Refer to KDIGO guidelines for clinical interpretation. In patients with unstable renal function, e.g. those with acute kidney injury, the eGFR may not accurately reflect actual GFR. Cystatin C [Mass/Vol] 1.23 mg/L High 0.61-0.95 [facility] Comment on above: Order Comment: Speci men Type: BLOOD SPECIMENOrdering Facility: [facility] Address: [address] [place] [address] Performed By: #### C YSTC, 40357-2 ####[facility] LABCLIA [id number] [address] [place] OF [facility] CYSTATIN C EGFR 58 mL/min/1.73m??? Low >=[address] [facility] Comment on above: Order Comment: Speci men Type: BLOOD SPECIMENOrdering Facility: [facility] Address: [address] [place] [address] Result Comment: Alexandra mated Glomerular Filtration Rate (eGFR) is calculated using the 2012 CKD-EPI cystatin C equation. This equation utilizes serum cystatin C, sex, and age as parameters. The cystatin C assay has traceable calibration to the [facility]-DA471/IFCC reference material. Refer to KDIGO guidelines for clinical interpretation. In patients with unstable renal function, e.g. those with acute kidney injury, the eGFR may not accurately reflect actual GFR. Performed By: #### C YSTC, 48760-9 ####[facility] LABCLIA [id number] [place] [address] [place] Laboratory - Chemistry and C hemistry - challengeon 06-07-2024 Protein/Creatinine (U) [Mass ratio] mg/mg NINF - 0.15 mg/mg [facility] Comment on above: Adult Proteinuria Ca tegories: [...] Interpretation and review of laboratory results Abnormal [facility] Prot/Creat Uron 06-07-2024 Protein/Creatinine (U) [Mass ratio] mg/g Normal <0.15 [facility] Comment on above: Order Comment: Speci men Type: URINE SPECIMENOrdering Facility: [facility] Address: [address] [place] [address] Result Comment: Adul t Proteinuria Categories: <0.15 mg/mg is considered normal to mildly increased 0.15 - 0.50 mg/mg is considered moderately increased >0.50 mg/mg is considered severely increased KDIGO. (2013). KDIGO 2012 Clinical Practice Guideline for the Evaluation and Management of Chronic Kidney Disease. Official Journal of the International Society of Nephrology, 3(1), 1-150. Performed By: #### L [id number], 2890-2 ####[facility] LABCLIA [id number] [address] [place] Protein/Creatinine (U) [Mass ratio]on 06-07-2024 Creatinine (U) [Mass/Vol] 36.7 mg/dL 20.0 - 300.0 mg/dL [facility] Interpretation and review of laboratory results Normal [facility] Protein (U) [Mass/Vol] mg/dL 0 - 20 mg/dL [facility] Creatinine (U) [Mass/Vol] 36.7 mg/dL Normal 20.0-300.0 [facility] Comment on above: Order Comment: Speci men Type: URINE SPECIMENOrdering Facility: [facility] Address: [address] [place] [address] Performed By: #### L [id number], 2890-2 ####[facility] LABCLIA [id number] [place] [address] [place] Protein (U) [Mass/Vol] mg/dL Normal 0-20 [facility] Comment on above: Order Comment: Speci men Type: URINE SPECIMENOrdering Facility: [facility] Address: [address] [place] [address] Performed By: #### L [id number], 2890-2 ####[facility] LABCLIA [id number] [place] [address] [place] Renal function 2000 panelon 06-07-2024 Albumin [Mass/Vol] 4.6 g/dL 3.9 - 4.9 g/dL [facility] Anion gap [Moles/Vol] 12 mmol/L 8 - 15 mmol/L [facility] Calcium [Mass/Vol] 10.2 mg/dL 8.5 - 10. 2 mg/dL [facility] Chloride [Moles/Vol] 104 mmol/L 98 - 10 7 mmol/L [facility] CO2 [Moles/Vol] 27 mmol/L 22 - 30 mmol/L [facility] Creatinine [Mass/Vol] 1.53 mg/dL High 0.73 - 1.22 mg/dL [facility] GFR/1.73 sq M.predicted among non-blacks MDRD (S/P/Bld) [Vol rate/Area] 50 mL/min/{1.73_m2} Low - PINF [facility] Comment on above: Estimated Glomerular Filtration Rate [...] [Mass/Vol] 94 mg/dL 74 - 99 mg/dL [facility] Comment on above: The [place] Diabete s Association (ADA) provides guidance for [...] Standards of Medical Care in Diabetes 2016, [place] Diabetes Association. Diabetes Care. 2016.39(Suppl 1). Phosphate [Mass/Vol] 2.9 mg/dL 2.7 - 4 .8 mg/dL [facility] Potassium [Moles/Vol] 4.4 mmol/L 3.7 - 5.1 mmol/L [facility] Sodium [Moles/Vol] 143 mmol/L 136 - 144 mmol/L [facility] Urea nitrogen [Mass/Vol] 25 mg/dL High 9 - 24 mg/dL [facility] Albumin [Mass/Vol] 4.6 g/dL Normal 3.9-4.9 [facility] Comment on above: Order Comment: Speci men Type: BLOOD SPECIMENOrdering Facility: [facility] Address: [address] [place] [address] Performed By: #### [place], 46260-6 ####[facility] LABCLIA [id number] [place] [address] [place] Anion gap [Moles/Vol] 12 mmol/L Normal 8-15 [facility] Comment on above: Order Comment: Speci men Type: BLOOD SPECIMENOrdering Facility: [facility] Address: [address] [place] [address] Performed By: #### C YS, 59632-6 ####[facility] LABCLIA [id number] [place] [address] [place] Calcium [Mass/Vol] 10.2 mg/dL Normal 8.5-10.2 [facility] Comment on above: Order Comment: Speci men Type: BLOOD SPECIMENOrdering Facility: [facility] Address: [address] [place] [address] Performed By: #### Darius CARR, 09547-2 ####[facility] LABCLIA [id number] [place] [address] [place] Chloride [Moles/Vol] 104 mmol/L Normal 98-107 [facility] Comment on above: Order Comment: Speci men Type: BLOOD SPECIMENOrdering Facility: [facility] Address: [address] [place] [address] Performed By: #### Darius CARR, 07167-5 ####[facility] LABCLIA [id number] [place] [address] [place] CO2 [Moles/Vol] 27 mmol/L Normal 22-30 [facility] Comment on above: Order Comment: Speci men Type: BLOOD SPECIMENOrdering Facility: [facility] Address: [address] [place] [address] Performed By: #### Darius CARR, 21618-4 ####[facility] LABCLIA [id number] [place] [address] [place] Creatinine [Mass/Vol] 1.53 mg/dL High 0.73-1.22 [facility] Comment on above: Order Comment: Speci men Type: BLOOD SPECIMENOrdering Facility: [facility] Address: [address] [place] [address] Performed By: #### Darius CARR, 79555-0 ####[facility] LABCLIA [id number] [place] [address] [place] Creatinine and Glomerular filtration rate.predicted panel (S/P/Bld) 50 mL/min/1.73m??? Low >=60 [facility] Comment on above: Order Comment: Speci men Type: BLOOD SPECIMENOrdering Facility: [facility] Address: [address] [place] [address] Result Comment: Alexandra mated Glomerular Filtration Rate [...] reflect actual GFR. Performed By: #### C BRUNO, 01560-8 ####[facility] LABCLIA [id number] [place] [address] [place] Glucose [Mass/Vol] 94 mg/dL Normal 74-99 [facility] Comment on above: Order Comment: Tianna yuan Type: BLOOD SPECIMENOrdering Facility: [facility] Address: [address] [place] [address] Result Comment: The [place] Diabetes Association (ADA) provides guidance for cutoff [...] Standards of Medical Care in Diabetes 2016, [place] Diabetes Association. Diabetes Care. 2016.39(Suppl 1). Performed By: #### C BRUNO, 58785-3 ####[facility] LABIA [id number] [place] [id number] [place] Phosphate [Mass/Vol] 2.9 mg/dL Normal 2.7-4.8 [facility] Comment on above: Order Comment: Tianna yuan Type: BLOOD SPECIMENOrdering Facility: [facility] Address: [address] [place] [address] Performed By: #### C BRUNO, 19261-2 ####[facility] LABIA [id number] [place] [address] [place] Potassium [Moles/Vol] 4.4 mmol/L Normal 3.7-5.1 [facility] Comment on above: Order Comment: Speci men Type: BLOOD SPECIMENOrdering Facility: [facility] Address: [address] [place] [address] Performed By: #### Darius CARR, 89141-5 ####[facility] LABCLIA [id number] [place] [address] [place] Sodium [Moles/Vol] 143 mmol/L Normal 136-144 [facility] Comment on above: Order Comment: Speci men Type: BLOOD SPECIMENOrdering Facility: [facility] Address: [address] [place] [address] Performed By: #### Darius CARR, 60899-6 ####[facility] LABCLIA [id number] [place] [address] [place] Urea nitrogen [Mass/Vol] 25 mg/dL High 9-24 [facility] Comment on above: Order Comment: Speci men Type: BLOOD SPECIMENOrdering Facility: [facility] Address: [address] [place] [address] Performed By: #### Darius CARR, 51251-3 ####[facility] LABCLIA [id number] [place] [address] [place] URINALYSIS, REFLEX MICROSCOP ICon 06-07-2024 Bilirubin Ql (U) Negative Negative [facility] Clarity (Unsp spec) Clear Clear [facility] Color (U) Yellow Yellow [facility] Glucose Test strip (U) [Mass/Vol] Negative Negative [facility] Hemoglobin Ql (U) Negative Negative [facility] Interpretation and review of laboratory results Abnormal [facility] Ketones Ql (U) Negative Negative [facility] Leukocyte esterase Test strip Ql (U) Trace Abnormal Negative [facility] Nitrite Ql (U) Negative Negative [facility] pH (U) 6.5 [pH] NINF - 8.5 [facility] Protein (U) [Mass/Vol] Negative Negative [facility] Specific gravity (U) [Rel density] 1.008 1.005 - 1.030 [facility] Urobilinogen Ql (U) 0.2 EU/dL 0.2-1.0 EU/dL [facility] This test was develo ped and its performance characteristics determined by [facility]'s [facility] Pathology and Laboratory Medicine [place] ([facility]). It has not been cleared or approved by the FDA. -PLKS is regulated under CLIA as qualified to perform high-complexity testing. This test is used for clinical purposes. It should not be regarded as investigational or for research. [facility] Bilirubin Ql (U) Negative Normal Negative [facility] Comment on above: Order Comment: Speci men Type: URINE SPECIMENOrdering Facility: [facility] Address: [address] [place] [address] Performed By: #### L [id number], 2890-2 ####[facility] LABCLIA [id number] [place] [address] [place] Clarity (Unsp spec) Clear Normal Clear [facility] Comment on above: Order Comment: Speci men Type: URINE SPECIMENOrdering Facility: [facility] Address: [address] [place] [address] Performed By: #### L [id number], 2890-2 ####[facility] LABCLIA [id number] [place] [address] [place] Color (U) Yellow Normal Yellow [facility] Comment on above: Order Comment: Speci men Type: URINE SPECIMENOrdering Facility: [facility] Address: [address] [place] [address] Performed By: #### L [id number], 2890-2 ####[facility] LABCLIA [id number] [place] [address] [place] Glucose Test strip (U) [Mass/Vol] Negative Normal Negative [facility] Comment on above: Order Comment: Speci men Type: URINE SPECIMENOrdering Facility: [facility] Address: [address] [place] [address] Performed By: #### L [id number], 2889-2 ####[facility] LABCLIA [id number] [place] [address] [place] Hemoglobin Ql (U) Negative Normal Negative [facility] Comment on above: Order Comment: Speci men Type: URINE SPECIMENOrdering Facility: [facility] Address: [address] [place] [address] Performed By: #### L [id number], 2889-2 ####[facility] LABCLIA [id number] [place] [address] [place] Ketones Ql (U) Negative Normal Negative [facility] Comment on above: Order Comment: Speci men Type: URINE SPECIMENOrdering Facility: [facility] Address: [address] [place] [address] Performed By: #### L [id number], 2889-2 ####[facility] LABCLIA [id number] [place] [address] [place] Leukocyte esterase Test strip Ql (U) Trace Abnormal Negative [facility] Comment on above: Order Comment: Speci men Type: URINE SPECIMENOrdering Facility: [facility] Address: [address] [place] [address] Performed By: #### L [id number], 2889-2 ####[facility] LABCLIA [id number] [place] [address] [place] Nitrite Ql (U) Negative Normal Negative [facility] Comment on above: Order Comment: Speci men Type: URINE SPECIMENOrdering Facility: [facility] Address: [address] [place] [address] Performed By: #### L [id number], 2889-2 ####[facility] LABCLIA [id number] [place] [address] [place] pH (U) 6.5 [pH] Normal <8.5 [facility] Comment on above: Order Comment: Speci men Type: URINE SPECIMENOrdering Facility: [facility] Address: [address] [place] [address] Performed By: #### L [id number], 2889- ####[facility] LABCLIA [id number] [place] [address] [place] Protein (U) [Mass/Vol] Negative Normal Negative [facility] Comment on above: Order Comment: Speci men Type: URINE SPECIMENOrdering Facility: [facility] Address: [address] [place] [address] Performed By: #### L [id number], 2889- ####[facility] LABIA [id number] [place] [address] [place] Specific gravity (U) [Rel density] 1.008 Normal 1.005-1.030 [facility] Comment on above: Order Comment: Speci men Type: URINE SPECIMENOrdering Facility: [facility] Address: [address] [place] [address] Performed By: #### L [id number], 2889- ####[facility] LABIA [id number] [place] [address] [place] Urobilinogen Ql (U) 0.2 EU/dL Normal 0.2-1.0 EU/dL [facility] Comment on above: Order Comment: Speci men Type: URINE SPECIMENOrdering Facility: [facility] Address: [address] [place] [address] Performed By: #### L [id number], 2889- ####[facility] LABIA [id number] [place] [address] [place] ALLIED HEALTHon 04-25-2024 ALLIED [facility]ALTH HNO ID: [id number] Author: CHUNG CONTRERAS, rail washer Service: Radiology Author Type: Package Delivery Room Service Runner Type: [facility] Filed: 04/25/2024 08:40 Note [...] PATIENT PRESENTS WITH AN 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 EXAM: MRI - CONTRAST TYPE: GROUP II PERIPHERAL IV DATA: Ambulatory: A peripheral IV was started in the Right antecubital site with a Angio cath: 24 gauge. RADIOLOGY DEPARTMENT: MR; Exam(s) Completed: Body: Renal SIGNATURE: Chung Rider, rail washer PATIENT NAME: Ashley Ledesma DATE: April 25, 2024 TIME: 8:39 AM [facility] CT CHEST WO IVCONon 04-25-20 CT CHEST WO IVCON * * *Final Report* * * DATE OF EXAM: Apr 25 2024 8:00AM [facility] 0541 - CT CHEST WO [...] exophytically from the body of the pancreas. Hide Worker (topogram) images: No additional findings. IMPRESSION: 1. Stable scattered small pulmonary nodules measuring up to 4 mm. Recommend follow-up as warranted by patient's history of renal cell carcinoma. 2. No thoracic lymphadenopathy. Wind Up Worker: SHASHI Transcribe Date/Time: Apr 25 2024 9:22A Dictated by : ANDRÉS HOOKS MD This examination was interpreted and the report reviewed and electronically signed by: ANDRÉS HOOKS MD on Apr 25 2024 9:30AM EST [id number] Normal [facility] CT Chest WO contraston 04-25 IMPRESSION: 1. Stable scattered small pulmonary nodules measuring up to 4 mm. Recommend follow-up as warranted by patient's history of renal cell carcinoma. 2. No thoracic lymphadenopathy. Wind Up Worker: SHASHI Transcribe Date/Time: Apr 25 2024 9:22A Dictated by : ANDRÉS HOOKS MD This examination was interpreted and the report reviewed and electronically signed by: ANDRÉS HOOKS MD on Apr 25 2024 9:30AM EST [facility] * * *Final Report* * * DATE OF EXAM: Apr 25 2024 8:00AM [facility] 0541 - CT CHEST WO [...] exophytically from the body of the pancreas. Hide Worker (topogram) images: No additional findings. [facility] Provider, Humaira Carlos [facility] - 04/25/2024 * * *Final Report* * * DATE OF EXAM: Apr 25 2024 8:00AM [facility] 0541 - CT CHEST WO [...] exophytically from the body of the pancreas. Hide Worker (topogram) images: No additional findings. IMPRESSION IMPRESSION: 1. Stable scattered small pulmonary nodules measuring up to 4 mm. Recommend follow-up as warranted by patient's history of renal cell carcinoma. 2. No thoracic lymphadenopathy. Wind Up Worker: SHASHI Transcribe Date/Time: Apr 25 2024 9:22A Dictated by : ANDRÉS HOOKS MD This examination was interpreted and the report reviewed and electronically signed by: ANDRÉS HOOKS MD on Apr 25 2024 9:30AM EST [facility] Radiology Study observation (narrative) [facility] CT Chest WO contrastOrdered By: [facility]cf Provider on 04-25-2024 [facility] MR Abdomen WO and W contrast Karen 04-25-2024 IMPRESSION: Status post LEFT nephrectomy with expected postoperative changes. No definite residual/recurrent disease or abdominal metastasis. 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 Wind Up Worker: PSCB Transcribe Date/Time: Apr 25 2024 1:16P Dictated by : RENATA NICOLE MD This examination was interpreted and the report reviewed and electronically signed by: MARIA ELENA MALLOY MD on Apr 25 2024 3:47PM EST [facility] * * *Final Report* * * DATE OF EXAM: Apr 25 2024 12:18PM [facility] 0689 - MRI ABDOMEN WO/W IVCON [...] included: axial precontrast T1 weighted in- and jeq-ez-ctcuj, axial and coronal HASTE, axial DWI with [...] chest: Unremarkable. Localizer images: No additional findings. [facility] Provider, [facility] - 04/25/2024 * * *Final Report* * * DATE OF EXAM: Apr 25 2024 12:18PM [facility] 0689 - MRI ABDOMEN WO/W IVCON [...] included: axial precontrast T1 weighted in- and lem-rg-rihtr, axial and coronal HASTE, axial DWI with [...] branch IPMNs and overall unchanged from 01/04/2024. Wind Up Worker: SHASHI Transcribe Date/Time: Apr 25 2024 1:16P Dictated by : RENATA NICOLE MD This examination was interpreted and the report reviewed and electronically signed by: MARIA ELENA MALLOY MD on Apr 25 2024 3:47PM EST [facility] Radiology Study observation (narrative) [facility] MR Abdomen WO and W contrast IVOrdered By: Ccf Provider on 04-25-2024 [facility] MRI ABDOMEN WO/W IVCONon MRI ABDOMEN WO/W IVCON * * *Final Report* * * DATE OF EXAM: Apr 25 2024 12:18PM [facility] 0689 - MRI ABDOMEN WO/W IVCON [...] included: axial precontrast T1 weighted in- and aar-wb-puulc, axial and coronal HASTE, axial DWI with [...] branch IPMNs and overall unchanged from 01/04/2024. Wind Up Worker[facility] Transcribe Date/Time: Apr 25 2024 1:16P Dictated by : RENATA NICOLE MD This examination was interpreted and the report reviewed and electronically signed by: MARIA ELENA MALLOY MD on Apr 25 2024 3:47PM EST [id number] Normal [facility] CBC panel Auto (Bld)on 03-24 Erythrocyte distribution width (RBC) [Ratio] 15.2 % High 11.5 - 15.0 % [facility] Hematocrit (Bld) [Volume fraction] 39.8 % 39.0 - 51.0 % [facility] Hemoglobin (Bld) [Mass/Vol] 12.6 g/dL Low 13.0 - 17.0 g/dL [facility] Interpretation and review of laboratory results Abnormal [facility] MCH (RBC) [Entitic mass] 28.2 pg 26.0 - 34.0 pg [facility] MCHC (RBC) [Mass/Vol] 31.7 g/dL 30.5 - 36.0 g/dL [facility] MCV (RBC) [Entitic vol] 89.0 fL 80.0 - 100.0 fL [facility] Nucleated RBC (Bld) [#/Vol] NINF [facility] Platelet mean volume (Bld) [Entitic vol] 13.6 fL High 9.0 - 12.7 fL [facility] Platelets (Bld) [#/Vol] 148 10*3/uL Low [facility] Comment on above: Results checked and verified.No clot detected. RBC (Bld) [#/Vol] 4.47 10*6/uL 4.20 - 6.0 0 m/uL [facility] WBC (Bld) [#/Vol] 5.53 10*3/uL [facility] Erythrocyte distribution width (RBC) [Ratio] 15.2 % High 11.5-15.0 [facility] Comment on above: Order Comment: Speci men Type: BLOOD SPECIMENOrdering Facility: [facility] Address: [address] [place] [address] Performed By: #### 5 8410-2 ####[facility] LABIA [id number] [place] [address] [place] Hematocrit (Bld) [Volume fraction] 39.8 % Normal 39.0-51.0 [facility] Comment on above: Order Comment: Speci men Type: BLOOD SPECIMENOrdering Facility: [facility] Address: [address] [place] [address] Performed By: #### 5 8410-2 ####[facility] LABCLIA [id number] [place] [address] [place] Hemoglobin (Bld) [Mass/Vol] 12.6 g/dL Low 13.0-17.0 [facility] Comment on above: Order Comment: Speci men Type: BLOOD SPECIMENOrdering Facility: [facility] Address: [address] [place] [address] Performed By: #### 5 8410-2 ####[facility] LABCLIA [id number] [place] [address] [place] MCH (RBC) [Entitic mass] 28.2 pg Normal 26.0-34.0 [facility] Comment on above: Order Comment: Speci men Type: BLOOD SPECIMENOrdering Facility: [facility] Address: [address] [place] [address] Performed By: #### 5 8410-2 ####[facility] LABIA [id number] [place] [address] [place] MCHC (RBC) [Mass/Vol] 31.7 g/dL Normal 30.5-36.0 [facility] Comment on above: Order Comment: Speci men Type: BLOOD SPECIMENOrdering Facility: [facility] Address: [address] [place] [address] Performed By: #### 5 8410-2 ####[facility] LABIA [id number] [place] [address] [place] MCV (RBC) [Entitic vol] 89.0 fL Normal 80.0-100.0 [facility] Comment on above: Order Comment: Speci men Type: BLOOD SPECIMENOrdering Facility: [facility] Address: [address] [place] [address] Performed By: #### 5 8410-2 ####[facility] LABIA [id number] [place] [address] [place] Nucleated RBC (Bld) [#/Vol] 10*3/uL Normal <0.01 [facility] Comment on above: Order Comment: Speci men Type: BLOOD SPECIMENOrdering Facility: [facility] Address: [address] [place] [address] Performed By: #### 5 8410-2 ####[facility] LABIA [id number] [place] [address] [place] Platelet mean volume (Bld) [Entitic vol] 13.6 fL High 9.0-12.7 [facility] Comment on above: Order Comment: Speci men Type: BLOOD SPECIMENOrdering Facility: [facility] Address: [address] [place] [address] Performed By: #### 5 8410-2 ####[facility] LABIA [id number] [place] [address] [place] Platelets (Bld) [#/Vol] 148 10*3/uL Low 150-400 [facility] Comment on above: Order Comment: Speci men Type: BLOOD SPECIMENOrdering Facility: [facility] Address: [address] [place] [address] Result Comment: Resu lts checked and verified.No clot detected. Performed By: #### 5 8410-2 ####[facility] LABIA [id number] [place] [address] [place] RBC (Bld) [#/Vol] 4.47 10*6/uL Normal 4.20-6.00 [facility] Comment on above: Order Comment: Speci men Type: BLOOD SPECIMENOrdering Facility: [facility] Address: [address] [place] [address] Performed By: #### 5 8410-2 ####[facility] LABIA [id number] [place] [address] [place] WBC (Bld) [#/Vol] 5.53 10*3/uL Normal 3.70-11.00 [facility] Comment on above: Order Comment: Speci men Type: BLOOD SPECIMENOrdering Facility: [facility] Address: [address] [place] [address] Performed By: #### 5 8410-2 ####[facility] LABIA [id number] [place] [address] [place] CNOVon 03-24-2024 CNOV Office Visit (CATA ) ASHLEY LEDESMA ([id number]) 1960 M Date Time Provider Department 03/24/24 8:20 AM JAYNE SILVEIRA During your visit today, we recorded the following information about you: Temperature Pulse Blood pressure Weight 97.7 degrees 67/minute 156/81 83.6 kg Height 1.778 m Jayne Silveira MD 04/11/2024 1:05 PM Addendum [facility] SERVICE DATE: 03/23/2024 [...] 03/24/24 10:08 (more content not included)... Normal [facility] CYSTATIN Con 03-24-2024 Cystatin C [Mass/Vol] 1.25 mg/L High 0.61 - 0.95 mg/L [facility] Cystatin C eGFR 57 Low - PINF [facility] Comment on above: Estimated Glomerular Filtration Rate [...] Interpretation and review of laboratory results Abnormal [facility] Cystatin C [Mass/Vol] 1.25 mg/L High 0.61-0.95 [facility] Comment on above: Order Comment: Speci lissy Type: BLOOD SPECIMENOrdering Facility: [facility] Address: [address] [place] [address] Performed By: #### 2 777-1, CYSTC, 31269-5, 3083-1 ####[facility] LABCLIA [id number] [place] [address] [place] CYSTATIN C EGFR 57 mL/min/1.73m??? Low >=[address] [facility] Comment on above: Order Comment: Tianna yuan Type: BLOOD SPECIMENOrdering Facility: [facility] Address: [address] [place] [address] Result Comment: Alexandra mated Glomerular Filtration Rate [...] GFR. Performed By: #### 2 777-1, CYSTC, 63932-9, 3083-1 ####[facility] LABCLIA [id number] [place] [address] [place] Comprehensive metabolic 2000 panelon 03-24-2024 Albumin [Mass/Vol] 4.7 g/dL Normal 3.9-4.9 [facility] Comment on above: Order Comment: Speci men Type: BLOOD SPECIMENOrdering Facility: [facility] Address: [address] [place] [address] Performed By: #### 2 777-1, CYSTC, 74038-4, 308-1 ####[facility] LABCLIA [id number] [place] [id number] [place] ALP [Catalytic activity/Vol] 86 U/L Normal 38-113 [facility] Comment on above: Order Comment: Speci men Type: BLOOD SPECIMENOrdering Facility: [facility] Address: [address] [place] [address] Performed By: #### 2 777-1, CYSTC, 26304-8, 308-1 ####[facility] LABCLIA [id number] [place] [address] [place] ALT [Catalytic activity/Vol] 10 U/L Normal 10-54 [facility] Comment on above: Order Comment: Speci men Type: BLOOD SPECIMENOrdering Facility: [facility] Address: [address] [place] [address] Performed By: #### 2 777-1, CYSTC, 57845-0, 3083- ####[facility] LABCLIA [id number] [place] [address] [place] Anion gap [Moles/Vol] 12 mmol/L Normal 9-18 [facility] Comment on above: Order Comment: Speci men Type: BLOOD SPECIMENOrdering Facility: [facility] Address: [address] [place] [address] Performed By: #### 2 777-1, CYSTC, 87243-6, 3083- ####[facility] LABCLIA [id number] [place] [address] [place] AST [Catalytic activity/Vol] 18 U/L Normal 14-40 [facility] Comment on above: Order Comment: Speci men Type: BLOOD SPECIMENOrdering Facility: [facility] Address: [address] [place] [address] Performed By: #### 2 777-1, CYSTC, 83251-1, 308-1 ####[facility] LABCLIA [id number] [place] [address] [place] Bilirubin [Mass/Vol] 1.1 mg/dL Normal 0.2-1.3 [facility] Comment on above: Order Comment: Speci men Type: BLOOD SPECIMENOrdering Facility: [facility] Address: [address] [place] [address] Performed By: #### 2 777-1, CYSTC, 75741-2, 3083- ####[facility] LABCLIA [id number] [place] [address] [place] Calcium [Mass/Vol] 10.6 mg/dL High 8.5-10.2 [facility] Comment on above: Order Comment: Speci men Type: BLOOD SPECIMENOrdering Facility: [facility] Address: [address] [place] [address] Performed By: #### 2 777-1, CYSTC, , 3083-11 ####[facility] LABCLIA [id number] [place] [address] [place] Chloride [Moles/Vol] 104 mmol/L Normal 97-105 [facility] Comment on above: Order Comment: Speci men Type: BLOOD SPECIMENOrdering Facility: [facility] Address: [address] [place] [address] Performed By: #### 2 777-1, CYSTC, , 3083-11 ####[facility] LABCLIA [id number] [place] [address] [place] CO2 [Moles/Vol] 27 mmol/L Normal 22-30 [facility] Comment on above: Order Comment: Speci men Type: BLOOD SPECIMENOrdering Facility: [facility] Address: [address] [place] [address] Performed By: #### 2 777-1, CYSTC, , 3083- ####[facility] LABCLIA [id number] [place] [id number] [place] Creatinine [Mass/Vol] 1.63 mg/dL High 0.73-1.22 [facility] Comment on above: Order Comment: Tianna yuan Type: BLOOD SPECIMENOrdering Facility: [facility] Address: [address] [place] [address] Performed By: #### 2 777-1, CYST, 03195-6, 3083-11 ####[facility] LABCLIA [id number] [place] [address] [place] Creatinine and Glomerular filtration rate.predicted panel (S/P/Bld) 47 mL/min/1.73m??? Low >=60 [facility] Comment on above: Order Comment: Tianna yuan Type: BLOOD SPECIMENOrdering Facility: [facility] Address: [address] [place] [address] Result Comment: Alexandra mated Glomerular Filtration Rate [...] actual GFR. Performed By: #### 2 777-1, CYST, 81563-8, 3083-11 ####[facility] LABCLIA [id number] [place] [address] [place] Glucose [Mass/Vol] 112 mg/dL High 74-99 [facility] Comment on above: Order Comment: Tianna yuan Type: BLOOD SPECIMENOrdering Facility: [facility] Address: [address] [place] [address] Result Comment: The [place] Diabetes Association (ADA) provides guidance for cutoff [...] Standards of Medical Care in Diabetes 2016, [place] [employer] Association. Diabetes Care. 2016.39(Suppl 1). Performed By: #### 2 777-1, CYSTDarius, , 3083-11 ####[facility] LABCLIA [id number] [place] [address] [place] Potassium [Moles/Vol] 4.7 mmol/L Normal 3.7-5.1 [facility] Comment on above: Order Comment: Speci men Type: BLOOD SPECIMENOrdering Facility: [facility] Address: [address] [place] [address] Performed By: #### 2 777-1, CYSTDarius, , 3083-11 ####[facility] LABCLIA [id number] [place] [address] [place] Protein [Mass/Vol] 7.0 g/dL Normal 6.3-8.0 [facility] Comment on above: Order Comment: Speci men Type: BLOOD SPECIMENOrdering Facility: [facility] Address: [address] [place] [address] Performed By: #### 2 777-1, CYSTDarius, , 3083-11 ####[facility] LABCLIA [id number] [place] [address] [place] Sodium [Moles/Vol] 143 mmol/L Normal 136-144 [facility] Comment on above: Order Comment: Speci men Type: BLOOD SPECIMENOrdering Facility: [facility] Address: [address] [place] [address] Performed By: #### 2 777-1, CYSTDarius, , 3083-11 ####[facility] LABCLIA [id number] [address] [address] [place] Urea nitrogen [Mass/Vol] 22 mg/dL Normal 9-24 [facility] Comment on above: Order Comment: Speci men Type: BLOOD SPECIMENOrdering Facility: [facility] Address: [address] [place] [address] Performed By: #### 2 777-1, CYST, 29768-6, 308-1 ####[facility] LABCLIA [id number] [place] [address] [place] No Panel Informationon 03-24 [facility] PROTEIN / CREATININE RATIOon 03-24-2024 Protein/Creatinine (U) [Mass ratio] mg/mg NINF - 0.15 mg/mg [facility] Comment on above: Adult Proteinuria Ca tegories: [...] 03-24 Phosphate [Mass/Vol] 3.6 mg/dL Normal 2.7-4.8 [facility] Comment on above: Order Comment: Speci men Type: BLOOD SPECIMENOrdering Facility: [facility] Address: [address] [place] [address] Performed By: #### 2 777-1, CYST, 95289-3, 3083- ####[facility] LABCLIA [id number] [place] [address] [place] Prot/Creat Uron 03-24-2024 Protein/Creatinine (U) [Mass ratio] mg/g Normal <0.15 [facility] Comment on above: Order Comment: Speci men Type: URINE SPECIMENOrdering Facility: [facility] Address: [address] [place] [address] Result Comment: Adul t Proteinuria Categories: <0.15 mg/mg is considered normal to mildly increased 0.15 - 0.50 mg/mg is considered moderately increased >0.50 mg/mg is considered severely increased KDIGO. (2013). KDIGO 2012 Clinical Practice Guideline for the Evaluation and Management of Chronic Kidney Disease. Official Journal of the International Society of Nephrology, 3(1), 1-150. Performed By: #### 2 890-2 ####[facility] LABIA [id number] [place] [id number] [place] Protein/Creatinine (U) [Mass ratio]on 03-24-2024 Creatinine (U) [Mass/Vol] 41.6 mg/dL 20.0 - 300.0 mg/dL [facility] Interpretation and review of laboratory results Normal [facility] Protein (U) [Mass/Vol] mg/dL 0 - 20 mg/dL [facility] Creatinine (U) [Mass/Vol] 41.6 mg/dL Normal 20.0-300.0 [facility] Comment on above: Order Comment: Speci men Type: URINE SPECIMENOrdering Facility: [facility] Address: [address] [place] [address] Performed By: #### 2 890-2 ####[facility] [place] [id number] [place] [address] [place] Protein (U) [Mass/Vol] mg/dL Normal 0-20 [facility] Comment on above: Order Comment: Speci men Type: URINE SPECIMENOrdering Facility: [facility] Address: [address] [place] [address] Performed By: #### 2 890-2 ####[facility] LABIA [id number] [place] [id number] [place] URIC ACIDon 03-24-2024 Urate [Mass/Vol] 4.8 mg/dL 4.0 - 8.1 mg/dL [facility] URINALYSIS, REFLEX MICROSCOP ICon 03-24-2024 Bilirubin Ql (U) Negative Negative [facility] Clarity (Unsp spec) Clear Clear [facility] Color (U) Colorless Yellow [facility] Glucose Test strip (U) [Mass/Vol] Negative Trace, Negative [facility] Hemoglobin Ql (U) Negative Negative, Trace [facility] Interpretation and review of laboratory results Normal [facility] Ketones Ql (U) Negative Negative, Trace [facility] Leukocyte esterase Test strip Ql (U) Negative Negative, 25 [place]/uL [facility] Nitrite Ql (U) Negative Negative [facility] pH (U) 7.0 [pH] 5.0 - 8.0 [facility] Protein (U) [Mass/Vol] Negative Trace, Negative [facility] Specific gravity (U) [Rel density] 1.006 1.005 - 1.030 [facility] Urobilinogen Ql (U) Normal Normal [facility] Bilirubin Ql (U) Negative Normal Negative [facility] Comment on above: Order Comment: Speci men Type: URINE SPECIMENOrdering Facility: [facility] Address: [address] [place] [address] Performed By: #### L [id number] ####[facility] LABCLIA [id number] [place] [address] [place] Clarity (Unsp spec) Clear Normal Clear [facility] Comment on above: Order Comment: Speci men Type: URINE SPECIMENOrdering Facility: [facility] Address: [address] [place] [address] Performed By: #### L [id number] ####[facility] LABCLIA [id number] [place] [address] [place] Color (U) Colorless Normal Yellow [facility] Comment on above: Order Comment: Speci men Type: URINE SPECIMENOrdering Facility: [facility] Address: [address] [place] [address] Performed By: #### L [id number] ####[facility] LABCLIA [id number] [place] [address] [place] Glucose Test strip (U) [Mass/Vol] Negative Normal Trace, Negative [facility] Comment on above: Order Comment: Speci men Type: URINE SPECIMENOrdering Facility: [facility] Address: [address] [place] [address] Performed By: #### L [id number] ####[facility] LABCLIA [id number] [place] [address] [place] Hemoglobin Ql (U) Negative Normal Negative, Trace [facility] Comment on above: Order Comment: Speci men Type: URINE SPECIMENOrdering Facility: [facility] Address: [address] [place] [address] Performed By: #### L [id number] ####[facility] LABCLIA [id number] [place] [address] [place] Ketones Ql (U) Negative Normal Negative, Trace [facility] Comment on above: Order Comment: Speci men Type: URINE SPECIMENOrdering Facility: [facility] Address: [address] [place] [address] Performed By: #### L [id number] ####[facility] LABCLIA [id number] [place] [address] [place] Leukocyte esterase Test strip Ql (U) Negative Normal Negative, 25 [place]/uL [facility] Comment on above: Order Comment: Speci men Type: URINE SPECIMENOrdering Facility: [facility] Address: [address] [place] [address] Performed By: #### L [id number] ####[facility] LABCLIA [id number] [place] [address] [place] Nitrite Ql (U) Negative Normal Negative [facility] Comment on above: Order Comment: Speci men Type: URINE SPECIMENOrdering Facility: [facility] Address: [address] [place] [address] Performed By: #### L [id number] ####[facility] LABCLIA [id number] [place] [address] [place] pH (U) 7.0 [pH] Normal 5.0-8.0 [facility] Comment on above: Order Comment: Speci men Type: URINE SPECIMENOrdering Facility: [facility] Address: [address] [place], [place] [address] Performed By: #### L [id number] ####[facility] LABIA [id number] [place] [address] [place] Protein (U) [Mass/Vol] Negative Normal Trace, Negative [facility] Comment on above: Order Comment: Speci men Type: URINE SPECIMENOrdering Facility: [facility] Address: [address] [place] [address] Performed By: #### L [id number] ####[facility] LABIA [id number] [place] [address] [place] Specific gravity (U) [Rel density] 1.006 Normal 1.005-1.030 [facility] Comment on above: Order Comment: Speci men Type: URINE SPECIMENOrdering Facility: [facility] Address: [address] [place] [address] Performed By: #### L [id number] ####[facility] [place] [id number] [place] [address] [place] Urobilinogen Ql (U) Normal Normal Normal [facility] Comment on above: Order Comment: Speci men Type: URINE SPECIMENOrdering Facility: [facility] Address: [address] [place] [address] Performed By: #### L [id number] ####[facility] LABIA [id number] [place] [address] [place] Urate SerPl-mCncon 4 Urate [Mass/Vol] 4.8 mg/dL Normal 4.0-8.1 [facility] Comment on above: Order Comment: Speci men Type: BLOOD SPECIMENOrdering Facility: [facility] Address: [address] [place] [address] Performed By: #### 2 777-1, CYSTC, 03495-4, 3084-1 ####[facility] LABIA [id number] [place] [address], [place] [address] [place] Urate [Mass/Vol]on Interpretation and review of laboratory results Normal [facility] 01-14-2024 CNPN Telephone (PODCCP) ASHLEY LEDESMA ([id number]) 1960 M Date Time Provider Department 01/14/24 ADAN LAMAR PODCCP During your visit today, we recorded the following information about you: Chon Felder 01/14/2024 11:11 AM Signed PATIENT INFORMATION Record ID: [id number] [facility] [place]: [facility] [place] Attending: Charlotte Lindsey Center: Urology INSTRUCTIONS SN to remind patient of appointment date, time, location All Clear All Clear SURVEY INFORMATION Medical/Nurse Site Inspector: Chon Avila 1. Your discharge instructions are [...] Reason for Visit: Follow Up Phone Call [2087] Cmt: All Clear Prescriptions as of 01/14/2024 [...] Encounter Status:Closed by CHON FELDER on 01/14/24 [facility] Humberto 01-11-2024 VAIBHAV Telephone (GLQ) ASHLEY LEDESMA ([id number]) 1960 M Date Time Provider Department 01/11/24 [...] RN, BSN Triage Nurse Department of Urology [facility] Allergies As of Date: 01/11/2024 (No Known [...] Renal mass [N28.89] 01/06/2024 Encounter Status:Closed by LUNDBERGNEELA on 01/11/24 Normal [facility] Basic metabolic 2000 panelon 01-09-2024 Anion gap [Moles/Vol] 9 mmol/L Normal 9-18 [facility] Comment on above: Order Comment: Speci men Type: BLOOD SPECIMENOrdering Facility: [facility] Address: [address] [place] [address] Performed By: #### 2 4321-2 ####[facility] LABCLIA [id number] [place] [address] [place] Calcium [Mass/Vol] 9.7 mg/dL Normal 8.5-10.2 [facility] Comment on above: Order Comment: Speci men Type: BLOOD SPECIMENOrdering Facility: [facility] Address: [address] [place] [address] Performed By: #### 2 4321-2 ####[facility] LABCLIA [id number] [place] [address] [place] Chloride [Moles/Vol] 102 mmol/L Normal 97-105 [facility] Comment on above: Order Comment: Speci men Type: BLOOD SPECIMENOrdering Facility: [facility] Address: [address] [place] [address] Performed By: #### 2 4321-2 ####[facility] LABCLIA [id number] [place] [address] [place] CO2 [Moles/Vol] 27 mmol/L Normal 22-30 [facility] Comment on above: Order Comment: Speci men Type: BLOOD SPECIMENOrdering Facility: [facility] Address: [address] [place] [address] Performed By: #### 2 4321-2 ####[facility] LABCLIA [id number] [place] [address] [place] Creatinine [Mass/Vol] 1.70 mg/dL High 0.73-1.22 [facility] Comment on above: Order Comment: Tianna yuan Type: BLOOD SPECIMENOrdering Facility: [facility] Address: [address] [place] [address] Performed By: #### 2 4321-2 ####[facility] LABCLIA [id number] [place] [address] [place] Creatinine and Glomerular filtration rate.predicted panel (S/P/Bld) 44 mL/min/1.73m??? Low >=60 [facility] Comment on above: Order Comment: Tianna yuan Type: BLOOD SPECIMENOrdering Facility: [facility] Address: [address] [place] [address] Result Comment: Alexandra mated Glomerular Filtration Rate [...] actual GFR. Performed By: #### 2 4321-2 ####[facility] LABCLIA [id number] [place] [address] [place] Glucose [Mass/Vol] 135 mg/dL High 74-99 [facility] Comment on above: Order Comment: Tianna yuan Type: BLOOD SPECIMENOrdering Facility: [facility] Address: [address] [place] [address] Result Comment: The [place] Diabetes Association (ADA) provides guidance for cutoff [...] Standards of Medical Care in Diabetes 2016, [place] Diabetes Association. Diabetes Care. 2016.39(Suppl 1). Performed By: #### 2 4321-2 ####[facility] LABCLIA [id number] [place] [address] [place] Potassium [Moles/Vol] 4.2 mmol/L Normal 3.7-5.1 [facility] Comment on above: Order Comment: Speci men Type: BLOOD SPECIMENOrdering Facility: [facility] Address: [address] [place] [address] Performed By: #### 2 4321-2 ####[facility] LABCLIA [id number] [place] [address] [place] Sodium [Moles/Vol] 138 mmol/L Normal 136-144 [facility] Comment on above: Order Comment: Speci men Type: BLOOD SPECIMENOrdering Facility: [facility] Address: [address] [place] [address] Performed By: #### 2 4321-2 ####[facility] LABCLIA [id number] [place] [address] [place] Urea nitrogen [Mass/Vol] 19 mg/dL Normal 9-24 [facility] Comment on above: Order Comment: Speci men Type: BLOOD SPECIMENOrdering Facility: [facility] Address: [address] [place] [address] Performed By: #### 2 4321-2 ####[facility] LABCLIA [id number] [place] [id number] [place] CBC panel Auto (Bld)on 01-09 Erythrocyte distribution width (RBC) [Ratio] 14.6 % Normal 11.5-15.0 [facility] Comment on above: Order Comment: Speci men Type: BLOOD SPECIMENOrdering Facility: [facility] Address: [address] [place] [address] Performed By: #### 5 8410-2 ####[facility] LABCLIA [id number] [place] [address] [place] Hematocrit (Bld) [Volume fraction] 33.2 % Low 39.0-51.0 [facility] Comment on above: Order Comment: Speci men Type: BLOOD SPECIMENOrdering Facility: [facility] Address: [address] [place] [address] Performed By: #### 5 8410-2 ####[facility] LABCLIA [id number] [place] [address] [place] Hemoglobin (Bld) [Mass/Vol] 10.6 g/dL Low 13.0-17.0 [facility] Comment on above: Order Comment: Speci men Type: BLOOD SPECIMENOrdering Facility: [facility] Address: [address] [place] [address] Performed By: #### 5 8410-2 ####[facility] LABCLIA [id number] [place] [address] [place] MCH (RBC) [Entitic mass] 27.8 pg Normal 26.0-34.0 [facility] Comment on above: Order Comment: Speci men Type: BLOOD SPECIMENOrdering Facility: [facility] Address: [address] [place] [address] Performed By: #### 5 8410-2 ####[facility] LABIA [id number] [place] [address] [place] MCHC (RBC) [Mass/Vol] 31.9 g/dL Normal 30.5-36.0 [facility] Comment on above: Order Comment: Speci men Type: BLOOD SPECIMENOrdering Facility: [facility] Address: [address] [place] [address] Performed By: #### 5 8410-2 ####[facility] LABCLIA [id number] [place] [address] [place] MCV (RBC) [Entitic vol] 87.1 fL Normal 80.0-100.0 [facility] Comment on above: Order Comment: Speci men Type: BLOOD SPECIMENOrdering Facility: [facility] Address: [address] [place] [address] Performed By: #### 5 8410-2 ####[facility] LABIA [id number] [place] [address] [place] Nucleated RBC (Bld) [#/Vol] 10*3/uL Normal <0.01 [facility] Comment on above: Order Comment: Speci men Type: BLOOD SPECIMENOrdering Facility: [facility] Address: [address] [place] [address] Performed By: #### 5 8410-2 ####[facility] [id number] [place] [address] [place] Platelet mean volume (Bld) [Entitic vol] 14.1 fL High 9.0-12.7 [facility] Comment on above: Order Comment: Speci men Type: BLOOD SPECIMENOrdering Facility: [facility] Address: [address] [place] [address] Performed By: #### 5 8410-2 ####[facility] [id number] [place] [address] [place] Platelets (Bld) [#/Vol] 146 10*3/uL Low 150-400 [facility] Comment on above: Order Comment: Speci men Type: BLOOD SPECIMENOrdering Facility: [facility] Address: [address] [place] [address] Result Comment: Resu lts checked and verified.No clot detected. Performed By: #### 5 8410-2 ####[facility] LABIA [id number] [place] [address] [place] RBC (Bld) [#/Vol] 3.81 10*6/uL Low 4.20-6.00 [facility] Comment on above: Order Comment: Speci men Type: BLOOD SPECIMENOrdering Facility: [facility] Address: [address] [place], [place] [address] Performed By: #### 5 8410-2 ####[facility] [id number] [place] [address] [place] WBC (Bld) [#/Vol] 7.31 10*3/uL Normal 3.70-11.00 [facility] Comment on above: Order Comment: Speci men Type: BLOOD SPECIMENOrdering Facility: [facility] Address: [address] [place] [address] Performed By: #### 5 8410-2 ####[facility] [id number] [address] [place] CNDSon 01-09-2024 CNDS HNO ID: [id number] Author: CHARLOTTE LINDSEY MD Service: Urology Author Type: Physician Type: Discharge Summary Filed: 02/06/2024 07:56 Note Text: [facility] [place] [id number] or ([phone] [facility] C O [facility] F I D E N T I A L I N F O R M A T I O N -------- STANDARD [facility] DOCUMENT DISCHARGE SUMMARY Patient Name: [...] 2015 on surveillance, large left renal mass . Hospital Course: Ashley Ledesma underwent Procedure(s) (LRB): LAPAROSCOPIC HAND ASSISTED NEPHRECTOMY (Left) on 01/06. 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 Please contact your cognos administrator to configure this SmartLink. was transferred [...] Your Medications These medications were sent to [id number] [place] [address] - [address] [facility] - [phone] [id number] [facility] [id number] docusate sodium 100 mg capsule methocarbamol 1,000 mg tablet oxyCODONE IR 5 mg immediate release tablet Future Appointments: No future appointments. Electronically SIGNED by Licensed Independent Practitioner: Julisa Ugalde MD Normal [facility] Basic metabolic 2000 panelon 01-08-2024 Anion gap [Moles/Vol] 9 mmol/L Normal 9-18 [facility] Comment on above: Order Comment: Speci men Type: BLOOD SPECIMENOrdering Facility: [facility] Address: [address] [place] [address] Performed By: #### 2 4321-2 ####[facility] LABCLIA [id number] [place] [address] [place] Calcium [Mass/Vol] 9.7 mg/dL Normal 8.5-10.2 [facility] Comment on above: Order Comment: Speci men Type: BLOOD SPECIMENOrdering Facility: [facility] Address: [address] [place] [address] Performed By: #### 2 4321-2 ####[facility] LABCLIA [id number] [place] [address] [place] Chloride [Moles/Vol] 98 mmol/L Normal 97-105 [facility] Comment on above: Order Comment: Speci men Type: BLOOD SPECIMENOrdering Facility: [facility] Address: [address] [place] [address] Performed By: #### 2 4321-2 ####[facility] LABCLIA [id number] [place] [address] [place] CO2 [Moles/Vol] 32 mmol/L High 22-30 [facility] Comment on above: Order Comment: Speci men Type: BLOOD SPECIMENOrdering Facility: [facility] Address: [address] [place] [address] Performed By: #### 2 4321-2 ####[facility] LABCLIA [id number] [place] [id number] [place] Creatinine [Mass/Vol] 1.77 mg/dL High 0.73-1.22 [facility] Comment on above: Order Comment: Speci men Type: BLOOD SPECIMENOrdering Facility: [facility] Address: [address] [place] [address] Performed By: #### 2 4321-2 ####[facility] LABIA [id number] [place] [address] [place] Creatinine and Glomerular filtration rate.predicted panel (S/P/Bld) 42 mL/min/1.73m??? Low >=60 [facility] Comment on above: Order Comment: Tianna yuan Type: BLOOD SPECIMENOrdering Facility: [facility] Address: [address] [place] [address] Result Comment: Alexandra mated Glomerular Filtration Rate [...] actual GFR. Performed By: #### 2 4321-2 ####[facility] LABIA [id number] [place] [address] [place] Glucose [Mass/Vol] 130 mg/dL High 74-99 [facility] Comment on above: Order Comment: Tianna yuan Type: BLOOD SPECIMENOrdering Facility: [facility] Address: [address] [place] [address] Result Comment: The [place] [employer] (ADA) provides guidance for cutoff [...] Standards of Medical Care in Diabetes 2016, [place] [employer]. Diabetes Care. 2016.39(Suppl 1). Performed By: #### 2 4321-2 ####[facility] LABCLIA [id number] [place] [address] [place] Potassium [Moles/Vol] 4.2 mmol/L Normal 3.7-5.1 [facility] Comment on above: Order Comment: Speci men Type: BLOOD SPECIMENOrdering Facility: [facility] Address: [address] [place] [address] Performed By: #### 2 4321-2 ####[facility] LABCLIA [id number] [place] [address] [place] Sodium [Moles/Vol] 139 mmol/L Normal 136-144 [facility] Comment on above: Order Comment: Speci men Type: BLOOD SPECIMENOrdering Facility: [facility] Address: [address] [place] [address] Performed By: #### 2 4321-2 ####[facility] LABIA [id number] [place] [address] [place] Urea nitrogen [Mass/Vol] 20 mg/dL Normal 9-24 [facility] Comment on above: Order Comment: Speci men Type: BLOOD SPECIMENOrdering Facility: [facility] Address: [address] [place] [address] Performed By: #### 2 4321-2 ####[facility] LABIA [id number] [place] [address] [place] CBC panel Auto (Bld)on 01-08 Erythrocyte distribution width (RBC) [Ratio] 14.6 % Normal 11.5-15.0 [facility] Comment on above: Order Comment: Speci men Type: BLOOD SPECIMENOrdering Facility: [facility] Address: [address] [place] [address] Performed By: #### 5 8410-2 ####[facility] LABIA [id number] [place] [address] [place] Hematocrit (Bld) [Volume fraction] 34.2 % Low 39.0-51.0 [facility] Comment on above: Order Comment: Speci men Type: BLOOD SPECIMENOrdering Facility: [facility] Address: [address] [place] [address] Performed By: #### 5 8410-2 ####[facility] LABIA [id number] [place] [address] [place] Hemoglobin (Bld) [Mass/Vol] 11.0 g/dL Low 13.0-17.0 [facility] Comment on above: Order Comment: Speci men Type: BLOOD SPECIMENOrdering Facility: [facility] Address: [address] [place] [address] Performed By: #### 5 8410-2 ####[facility] LABIA [id number] [place] [address] [place] MCH (RBC) [Entitic mass] 28.0 pg Normal 26.0-34.0 [facility] Comment on above: Order Comment: Speci men Type: BLOOD SPECIMENOrdering Facility: [facility] Address: [address] [place] [address] Performed By: #### 5 8410-2 ####[facility] LABIA [id number] [place] [address] [place] MCHC (RBC) [Mass/Vol] 32.2 g/dL Normal 30.5-36.0 [facility] Comment on above: Order Comment: Speci men Type: BLOOD SPECIMENOrdering Facility: [facility] Address: [address] [place] [address] Performed By: #### 5 8410-2 ####[facility] LABIA [id number] [place] [address] [place] MCV (RBC) [Entitic vol] 87.0 fL Normal 80.0-100.0 [facility] Comment on above: Order Comment: Speci men Type: BLOOD SPECIMENOrdering Facility: [facility] Address: [address] [place] [address] Performed By: #### 5 8410-2 ####[facility] LABIA [id number] [place] [address] [place] Nucleated RBC (Bld) [#/Vol] 10*3/uL Normal <0.01 [facility] Comment on above: Order Comment: Speci men Type: BLOOD SPECIMENOrdering Facility: [facility] Address: [address] [place] [address] Performed By: #### 5 8410-2 ####[facility] [id number] [place] [address] [place] Platelet mean volume (Bld) [Entitic vol] 13.7 fL High 9.0-12.7 [facility] Comment on above: Order Comment: Speci men Type: BLOOD SPECIMENOrdering Facility: [facility] Address: [address] [place] [address] Performed By: #### 5 8410-2 ####[facility] [id number] [place] [address] [place] Platelets (Bld) [#/Vol] 147 10*3/uL Low 150-400 [facility] Comment on above: Order Comment: Speci men Type: BLOOD SPECIMENOrdering Facility: [facility] Address: [address] [place] [address] Result Comment: Resu lts checked and verified.No clot detected. Performed By: #### 5 8410-2 ####[facility] [id number] [place] [address] [place] RBC (Bld) [#/Vol] 3.93 10*6/uL Low 4.20-6.00 [facility] Comment on above: Order Comment: Speci men Type: BLOOD SPECIMENOrdering Facility: [facility] Address: [address] [place] [address] Performed By: #### 5 8410-2 ####[facility] LABCLIA [id number] [address] [address] [place] WBC (Bld) [#/Vol] 9.00 10*3/uL Normal 3.70-11.00 [facility] Comment on above: Order Comment: Speci men Type: BLOOD SPECIMENOrdering Facility: [facility] Address: [address] [place] [address] Performed By: #### 5 8410-2 ####[facility] LABIA [id number] [place] [address] [place] Basic metabolic 2000 panelon 01-07-2024 Anion gap [Moles/Vol] 10 mmol/L Normal 9-18 [facility] Comment on above: Order Comment: Speci men Type: BLOOD SPECIMENOrdering Facility: [facility] Address: [address] [place] [address] Performed By: #### 2 4321-2 ####[facility] LABIA [id number] [place] [address] [place] Calcium [Mass/Vol] 9.5 mg/dL Normal 8.5-10.2 [facility] Comment on above: Order Comment: Speci men Type: BLOOD SPECIMENOrdering Facility: [facility] Address: [address] [place] [address] Performed By: #### 2 4321-2 ####[facility] LABIA [id number] [place] [id number] [place] Chloride [Moles/Vol] 105 mmol/L Normal 97-105 [facility] Comment on above: Order Comment: Speci men Type: BLOOD SPECIMENOrdering Facility: [facility] Address: [address] [place] [address] Performed By: #### 2 4321-2 ####[facility] LABIA [id number] [place] [id number] [place] CO2 [Moles/Vol] 27 mmol/L Normal 22-30 [facility] Comment on above: Order Comment: Speci men Type: BLOOD SPECIMENOrdering Facility: [facility] Address: [address] [place] [address] Performed By: #### 2 4321-2 ####[facility] LABCLIA [id number] [place] [address] [place] Creatinine [Mass/Vol] 1.66 mg/dL High 0.73-1.22 [facility] Comment on above: Order Comment: Speci men Type: BLOOD SPECIMENOrdering Facility: [facility] Address: [address] [place] [address] Performed By: #### 2 4321-2 ####[facility] LABCLIA [id number] [place] [address] [place] Creatinine and Glomerular filtration rate.predicted panel (S/P/Bld) 46 mL/min/1.73m??? Low >=60 [facility] Comment on above: Order Comment: Speci men Type: BLOOD SPECIMENOrdering Facility: [facility] Address: [address] [place] [address] Result Comment: Alexandra mated Glomerular Filtration Rate [...] actual GFR. Performed By: #### 2 4321-2 ####[facility] LABCLIA [id number] [place] [address] [place] Glucose [Mass/Vol] 132 mg/dL High 74-99 [facility] Comment on above: Order Comment: Speci men Type: BLOOD SPECIMENOrdering Facility: [facility] Address: [address] [place] [address] Result Comment: The [place] Diabetes [employer] (ADA) provides guidance for cutoff [...] Standards of Medical Care in Diabetes 2016, [place] [employer]. Diabetes Care. 2016.39(Suppl 1). Performed By: #### 2 4321-2 ####[facility] LABCLIA [id number] [place] [address] [place] Potassium [Moles/Vol] 5.0 mmol/L Normal 3.7-5.1 [facility] Comment on above: Order Comment: Speci men Type: BLOOD SPECIMENOrdering Facility: [facility] Address: [address] [place] [address] Performed By: #### 2 4321-2 ####[facility] LABIA [id number] [place] [address] [place] Sodium [Moles/Vol] 142 mmol/L Normal 136-144 [facility] Comment on above: Order Comment: Speci men Type: BLOOD SPECIMENOrdering Facility: [facility] Address: [address] [place] [address] Performed By: #### 2 4321-2 ####[facility] LABCLIA [id number] [place] [address] [place] Urea nitrogen [Mass/Vol] 20 mg/dL Normal 9-24 [facility] Comment on above: Order Comment: Speci men Type: BLOOD SPECIMENOrdering Facility: [facility] Address: [address] [place] [address] Performed By: #### 2 4321-2 ####[facility] LABCLIA [id number] [place] [address] [place] CBC W Auto Differential pane l (Bld)on 01-07-2024 Basophils (Bld) [#/Vol] 10*3/uL Normal <0.11 [facility] Comment on above: Order Comment: Speci men Type: BLOOD SPECIMENOrdering Facility: [facility] Address: [address] [place] [address] Performed By: #### 5 7021-8 ####[facility] LABCLIA [id number] [place] [address] [place] Basophils/100 WBC (Bld) 0.1 % Normal [facility] Comment on above: Order Comment: Speci men Type: BLOOD SPECIMENOrdering Facility: [facility] Address: [address] [place] [address] Performed By: #### 5 7021-8 ####[facility] LABCLIA [id number] [place] [address] [place] Differential cell count method Nom (Bld) Auto Normal [facility] Comment on above: Order Comment: Speci men Type: BLOOD SPECIMENOrdering Facility: [facility] Address: [address] [place] [address] Performed By: #### 5 7021-8 ####[facility] LABCLIA [id number] [place] [address] [place] Eosinophils (Bld) [#/Vol] 10*3/uL Normal <0.46 [facility] Comment on above: Order Comment: Speci men Type: BLOOD SPECIMENOrdering Facility: [facility] Address: [address] [place] [address] Performed By: #### 5 7021-8 ####[facility] LABCLIA [id number] [place] [address] [place] Eosinophils/100 WBC (Bld) 0.0 % Normal [facility] Comment on above: Order Comment: Speci men Type: BLOOD SPECIMENOrdering Facility: [facility] Address: [address] [place] [address] Performed By: #### 5 7021-8 ####[facility] LABCLIA [id number] [place] [address] [place] Erythrocyte distribution width (RBC) [Ratio] 14.5 % Normal 11.5-15.0 [facility] Comment on above: Order Comment: Speci men Type: BLOOD SPECIMENOrdering Facility: [facility] Address: [address] [place] [address] Performed By: #### 5 7021-8 ####[facility] LABCLIA [id number] [place] [address] [place] Hematocrit (Bld) [Volume fraction] 37.1 % Low 39.0-51.0 [facility] Comment on above: Order Comment: Speci men Type: BLOOD SPECIMENOrdering Facility: [facility] Address: [address] [place] [address] Performed By: #### 5 7021-8 ####[facility] LABCLIA [id number] [place] [address] [place] Hemoglobin (Bld) [Mass/Vol] 12.2 g/dL Low 13.0-17.0 [facility] Comment on above: Order Comment: Speci men Type: BLOOD SPECIMENOrdering Facility: [facility] Address: [address] [place] [address] Performed By: #### 5 7021-8 ####[facility] LABCLIA [id number] [place] [address] [place] Immature granulocytes (Bld) [#/Vol] 0.06 10*3/uL Normal <0.10 [facility] Comment on above: Order Comment: Speci men Type: BLOOD SPECIMENOrdering Facility: [facility] Address: [address] [place] [address] Performed By: #### 5 7021-8 ####[facility] LABCLIA [id number] [place] [address] [place] Immature granulocytes/100 WBC (Bld) 0.4 % Normal [facility] Comment on above: Order Comment: Speci men Type: BLOOD SPECIMENOrdering Facility: [facility] Address: [address] [place] [address] Performed By: #### 5 7021-8 ####[facility] LABCLIA [id number] [place] [address] [place] Lymphocytes (Bld) [#/Vol] 0.76 10*3/uL Low 1.00-4.00 [facility] Comment on above: Order Comment: Speci men Type: BLOOD SPECIMENOrdering Facility: [facility] Address: [address] [place] [address] Performed By: #### 5 7021-8 ####[facility] LABCLIA [id number] [place] [address] [place] Lymphocytes/100 WBC (Bld) 5.5 % Normal [facility] Comment on above: Order Comment: Speci men Type: BLOOD SPECIMENOrdering Facility: [facility] Address: [address] [place] [address] Performed By: #### 5 7021-8 ####[facility] LABCLIA [id number] [place] [address] [place] MCH (RBC) [Entitic mass] 28.4 pg Normal 26.0-34.0 [facility] Comment on above: Order Comment: Speci men Type: BLOOD SPECIMENOrdering Facility: [facility] Address: [address] [place] [address] Performed By: #### 5 7021-8 ####[facility] LABCLIA [id number] [place] [address] [place] MCHC (RBC) [Mass/Vol] 32.9 g/dL Normal 30.5-36.0 [facility] Comment on above: Order Comment: Speci men Type: BLOOD SPECIMENOrdering Facility: [facility] Address: [address] [place] [address] Performed By: #### 5 7021-8 ####[facility] LABIA [id number] [place] [address] [place] MCV (RBC) [Entitic vol] 86.5 fL Normal 80.0-100.0 [facility] Comment on above: Order Comment: Speci men Type: BLOOD SPECIMENOrdering Facility: [facility] Address: [address] [place] [address] Performed By: #### 5 7021-8 ####[facility] LABIA [id number] [place] [address] [place] Monocytes (Bld) [#/Vol] 1.08 10*3/uL High <0.87 [facility] Comment on above: Order Comment: Speci men Type: BLOOD SPECIMENOrdering Facility: [facility] Address: [address] [place] [address] Performed By: #### 5 7021-8 ####[facility] LABIA [id number] [place] [address] [place] Monocytes/100 WBC (Bld) 7.8 % Normal [facility] Comment on above: Order Comment: Speci men Type: BLOOD SPECIMENOrdering Facility: [facility] Address: [address] [place] [address] Performed By: #### 5 7021-8 ####[facility] LABIA [id number] [place] [address] [place] Neutrophils (Bld) [#/Vol] 11.85 10*3/uL High 1.45-7.50 [facility] Comment on above: Order Comment: Speci men Type: BLOOD SPECIMENOrdering Facility: [facility] Address: [address] [place] [address] Performed By: #### 5 7021-8 ####[facility] LABCLIA [id number] [place] [address] [place] Neutrophils/100 WBC (Bld) 86.2 % Normal [facility] Comment on above: Order Comment: Speci men Type: BLOOD SPECIMENOrdering Facility: [facility] Address: [address] [place] [address] Performed By: #### 5 7021-8 ####[facility] LABCLIA [id number] [place] [address] [place] Nucleated RBC (Bld) [#/Vol] 10*3/uL Normal <0.01 [facility] Comment on above: Order Comment: Speci men Type: BLOOD SPECIMENOrdering Facility: [facility] Address: [address] [place] [address] Performed By: #### 5 7021-8 ####[facility] LABIA [id number] [place] [address] [place] Nucleated RBC/100 WBC (Bld) [Ratio] 0.0 /100 WBC Normal [facility] Comment on above: Order Comment: Speci men Type: BLOOD SPECIMENOrdering Facility: [facility] Address: [address] [place] [address] Performed By: #### 5 7021-8 ####[facility] LABIA [id number] [place] [address] [place] Platelet mean volume (Bld) [Entitic vol] 12.9 fL High 9.0-12.7 [facility] Comment on above: Order Comment: Speci men Type: BLOOD SPECIMENOrdering Facility: [facility] Address: [address] [place] [address] Performed By: #### 5 7021-8 ####[facility] LABCLIA [id number] [place] [address] [place] Platelets (Bld) [#/Vol] 164 10*3/uL Normal 150-400 [facility] Comment on above: Order Comment: Speci men Type: BLOOD SPECIMENOrdering Facility: [facility] Address: [address] [place] [address] Performed By: #### 5 7021-8 ####[facility] LABCLIA [id number] [place] [address] [place] RBC (Bld) [#/Vol] 4.29 10*6/uL Normal 4.20-6.00 [facility] Comment on above: Order Comment: Speci men Type: BLOOD SPECIMENOrdering Facility: [facility] Address: [address] [place] [address] Performed By: #### 5 7021-8 ####[facility] LABCLIA [id number] [place] [address] [place] WBC (Bld) [#/Vol] 13.76 10*3/uL High 3.70-11.00 [facility] Comment on above: Order Comment: Speci men Type: BLOOD SPECIMENOrdering Facility: [facility] Address: [address] [place] [address] Performed By: #### 5 7021-8 ####[facility] LABCLIA [id number] [place] [address] [place] NURSING PROGon 01-07-2024 NURSING PROG HNO ID: [id number] Author: MARILYN MENARD RN Service: Nursing Author Type: Registered Nurse Type: Nursing Progress Note Filed: 01/07/2024 17:44 Note Text: Transfer Note: PATIENT NAME: Ashley Ledesma Patient Location: [place] [address]/ Room: [place] [address] Patient transferred into room/unit G90-9 in stable condition. Actions taken: No futher actions taken at this time. Will continue to monitor and check with patient. OBDULIA Romero Normal [facility] ANES POSTPROC EVALon 024 ANES POSTPROC EVAL HNO ID: [id number] Author: MASON ARMAS MD Service: ? Author Type: Physician Type: Anesthesia Postprocedure Evaluation Filed: 01/06/2024 19:31 Note Text: POST ANESTHESIA EVALUATION NOTE : 1960 Procedure Summary Date: 01/06/24 Room / Location: [address] [facility] Anesthesia Start: 1423 Anesthesia Stop: 190 Procedure: LAPAROSCOPIC HAND ASSISTED NEPHRECTOMY (Left: Kidney) Diagnosis: Renal mass (Renal mass [N28.89]) Surgeons: Charlotte [place] MD Responsible Provider: Mason Armas MD Anesthesia Type: general ASA Status: 3 Anesthesia Type: general Airway Type: ETT Last Vitals Vitals Value Taken Time BP 143/76 01/06/241929 Temp 37.1 ?C (98.8 ?F) 01/06/241901 Pulse 83 01/06/241929 Resp 17 01/06/241929 SpO2 [...] January 06, 2024 TIME: 7:31 PM CSN: [id number] [facility] ANES PRE-OPon 01-06-2024 ANES PRE-OP HNO ID: [id number] Author: PANDA CONNELLY MD Service: ? Author Type: Anesthesiologist Type: Anesthesia Preprocedure Evaluation Filed: 01/06/2024 13:54 Note Text: ANESTHESIOLOGY DAY OF SURGERY NOTE : 1960 Procedure Information Date/Time: 01/06/24 1336 Procedure: ROBOTIC LAPAROSCOPIC NEPHRECTOMY RADICAL (Left: Kidney) Location: [facility] Surgeons: Charlotte [place] MD [...] 0900 Temp 36.6 ?C (97.9 ?F) 01/06/24 0900 SpO2 99 % 01/06/24 0900 No current [...] January 06, 2024 TIME: 1:53 PM CSN: [id number] Normal [facility] BRIEF OP NOTon 01-06-2024 BRIEF OP NOT HNO ID: [id number] Author: ROLF CASEY MD Service: Urology Author Type: Physician Type: Brief Op Note Filed: 01/06/2024 18:44 Note Text: BRIEF OPERATIVE / PROCEDURE NOTE LOG ID: [id number] SURGERY/PROCEDURE DATE: 01/06/2024 INCISION/PROCEDURE START TIME: 3:15 PM INCISION CLOSE/PROCEDURE END TIME: 6:38 PM SURGEON(S)/PROCEDURALIST(S) AND DRYCLEANER(S): Surgeon(s) and Role: * Charlotte Lindsey MD [...] January 06, 2024 TIME: 6:43 PM Normal [facility] CBC W Auto Differential pane l (Bld)on 01-06-2024 Basophils (Bld) [#/Vol] 10*3/uL Normal <0.11 [facility] Comment on above: Order Comment: Speci men Type: BLOOD SPECIMENOrdering Facility: [facility] Address: [address] [place] [address] Performed By: #### 5 7021-8 ####[facility] LABCLIA [id number] [place] [address] [place] Basophils/100 WBC (Bld) 0.1 % Normal [facility] Comment on above: Order Comment: Speci men Type: BLOOD SPECIMENOrdering Facility: [facility] Address: [address] [place] [address] Performed By: #### 5 7021-8 ####[facility] LABCLIA [id number] [place] [address] [place] Differential cell count method Nom (Bld) Auto Normal [facility] Comment on above: Order Comment: Speci men Type: BLOOD SPECIMENOrdering Facility: [facility] Address: [address] [place] [address] Performed By: #### 5 7021-8 ####[facility] LABCLIA [id number] [place] [address] [place] Eosinophils (Bld) [#/Vol] 10*3/uL Normal <0.46 [facility] Comment on above: Order Comment: Speci men Type: BLOOD SPECIMENOrdering Facility: [facility] Address: [address] [place] [address] Performed By: #### 5 7021-8 ####[facility] LABCLIA [id number] [place] [address] [place] Eosinophils/100 WBC (Bld) 0.1 % Normal [facility] Comment on above: Order Comment: Speci men Type: BLOOD SPECIMENOrdering Facility: [facility] Address: [address] [place] [address] Performed By: #### 5 7021-8 ####[facility] LABCLIA [id number] [place] [address] [place] Erythrocyte distribution width (RBC) [Ratio] 14.5 % Normal 11.5-15.0 [facility] Comment on above: Order Comment: Speci men Type: BLOOD SPECIMENOrdering Facility: [facility] Address: [address] [place] [address] Performed By: #### 5 7021-8 ####[facility] LABCLIA [id number] [place] [address] [place] Hematocrit (Bld) [Volume fraction] 37.4 % Low 39.0-51.0 [facility] Comment on above: Order Comment: Speci men Type: BLOOD SPECIMENOrdering Facility: [facility] Address: [address] [place] [address] Performed By: #### 5 7021-8 ####[facility] LABCLIA [id number] [place] [address] [place] Hemoglobin (Bld) [Mass/Vol] 12.0 g/dL Low 13.0-17.0 [facility] Comment on above: Order Comment: Speci men Type: BLOOD SPECIMENOrdering Facility: [facility] Address: [address] [place] [address] Performed By: #### 5 7021-8 ####[facility] LABIA [id number] [place] [address] [place] Immature granulocytes (Bld) [#/Vol] 0.05 10*3/uL Normal <0.10 [facility] Comment on above: Order Comment: Speci men Type: BLOOD SPECIMENOrdering Facility: [facility] Address: [address] [place] [address] Performed By: #### 5 7021-8 ####[facility] LABCLIA [id number] [place] [address] [place] Immature granulocytes/100 WBC (Bld) 0.3 % Normal [facility] Comment on above: Order Comment: Speci men Type: BLOOD SPECIMENOrdering Facility: [facility] Address: [address] [place] [address] Performed By: #### 5 7021-8 ####[facility] LABCLIA [id number] [place] [address] [place] Lymphocytes (Bld) [#/Vol] 1.06 10*3/uL Normal 1.00-4.00 [facility] Comment on above: Order Comment: Speci men Type: BLOOD SPECIMENOrdering Facility: [facility] Address: [address] [place] [address] Performed By: #### 5 7021-8 ####[facility] LABIA [id number] [place] [address] [place] Lymphocytes/100 WBC (Bld) 7.4 % Normal [facility] Comment on above: Order Comment: Speci men Type: BLOOD SPECIMENOrdering Facility: [facility] Address: [address] [place] [address] Performed By: #### 5 7021-8 ####[facility] LABIA [id number] [place] [address] [place] MCH (RBC) [Entitic mass] 28.0 pg Normal 26.0-34.0 [facility] Comment on above: Order Comment: Speci men Type: BLOOD SPECIMENOrdering Facility: [facility] Address: [address] [place] [address] Performed By: #### 5 7021-8 ####[facility] LABIA [id number] [place] [address] [place] MCHC (RBC) [Mass/Vol] 32.1 g/dL Normal 30.5-36.0 [facility] Comment on above: Order Comment: Speci men Type: BLOOD SPECIMENOrdering Facility: [facility] Address: [address] [place] [address] Performed By: #### 5 7021-8 ####[facility] [id number] [place] [address] [place] MCV (RBC) [Entitic vol] 87.2 fL Normal 80.0-100.0 [facility] Comment on above: Order Comment: Speci men Type: BLOOD SPECIMENOrdering Facility: [facility] Address: [address] [place] [address] Performed By: #### 5 7021-8 ####[facility] LABCLIA [id number] [place] [address] [place] Monocytes (Bld) [#/Vol] 0.75 10*3/uL Normal <0.87 [facility] Comment on above: Order Comment: Speci men Type: BLOOD SPECIMENOrdering Facility: [facility] Address: [address] [place] [address] Performed By: #### 5 7021-8 ####[facility] LABCLIA [id number] [place] [address] [place] Monocytes/100 WBC (Bld) 5.2 % Normal [facility] Comment on above: Order Comment: Speci men Type: BLOOD SPECIMENOrdering Facility: [facility] Address: [address] [place] [address] Performed By: #### 5 7021-8 ####[facility] LABCLIA [id number] [place] [address] [place] Neutrophils (Bld) [#/Vol] 12.43 10*3/uL High 1.45-7.50 [facility] Comment on above: Order Comment: Speci men Type: BLOOD SPECIMENOrdering Facility: [facility] Address: [address] [place] [address] Performed By: #### 5 7021-8 ####[facility] LABCLIA [id number] [place] [address] [place] Neutrophils/100 WBC (Bld) 86.9 % Normal [facility] Comment on above: Order Comment: Speci men Type: BLOOD SPECIMENOrdering Facility: [facility] Address: [address] [place] [address] Performed By: #### 5 7021-8 ####[facility] LABCLIA [id number] [place] [address] [place] Nucleated RBC (Bld) [#/Vol] 10*3/uL Normal <0.01 [facility] Comment on above: Order Comment: Speci men Type: BLOOD SPECIMENOrdering Facility: [facility] Address: [address] [place] [address] Performed By: #### 5 7021-8 ####[facility] LABIA [id number] [place] [address] [place] Nucleated RBC/100 WBC (Bld) [Ratio] 0.0 /100 WBC Normal [facility] Comment on above: Order Comment: Speci men Type: BLOOD SPECIMENOrdering Facility: [facility] Address: [address] [place] [address] Performed By: #### 5 7021-8 ####[facility] LABIA [id number] [place] [address] [place] Platelet mean volume (Bld) [Entitic vol] 12.9 fL High 9.0-12.7 [facility] Comment on above: Order Comment: Speci men Type: BLOOD SPECIMENOrdering Facility: [facility] Address: [address] [place] [address] Performed By: #### 5 7021-8 ####[facility] LABIA [id number] [place] [address] [place] Platelets (Bld) [#/Vol] 181 10*3/uL Normal 150-400 [facility] Comment on above: Order Comment: Speci men Type: BLOOD SPECIMENOrdering Facility: [facility] Address: [address] [place] [address] Performed By: #### 5 7021-8 ####[facility] LABIA [id number] [place] [address] [place] RBC (Bld) [#/Vol] 4.29 10*6/uL Normal 4.20-6.00 [facility] Comment on above: Order Comment: Speci men Type: BLOOD SPECIMENOrdering Facility: [facility] Address: [address] [place] [address] Performed By: #### 5 7021-8 ####[facility] LABCLIA [id number] [place] [address] [place] WBC (Bld) [#/Vol] 14.32 10*3/uL High 3.70-11.00 [facility] Comment on above: Order Comment: Speci men Type: BLOOD SPECIMENOrdering Facility: [facility] Address: [address] [place] [address] Performed By: #### 5 7021-8 ####[facility] LABCLIA [id number] [place] [address] [place] [facility] Comprehensive metabolic 2000 panelon 01-06-2024 Albumin [Mass/Vol] 4.0 g/dL Normal 3.9-4.9 [facility] Comment on above: Order Comment: Speci men Type: BLOOD SPECIMENOrdering Facility: [facility] Address: [address] [place] [address] Performed By: #### 2 4323-8 ####[facility] LABCLIA [id number] [place] [address] [place] ALP [Catalytic activity/Vol] 61 U/L Normal 38-113 [facility] Comment on above: Order Comment: Speci men Type: BLOOD SPECIMENOrdering Facility: [facility] Address: [address] [place] [address] Performed By: #### 2 4323-8 ####[facility] LABCLIA [id number] [place] [id number] [place] ALT [Catalytic activity/Vol] 9 U/L Low 10-54 [facility] Comment on above: Order Comment: Speci men Type: BLOOD SPECIMENOrdering Facility: [facility] Address: [address] [place] [address] Performed By: #### 2 4323-8 ####[facility] LABCLIA [id number] [place] [address] [place] Anion gap [Moles/Vol] 11 mmol/L Normal 9-18 [facility] Comment on above: Order Comment: Speci men Type: BLOOD SPECIMENOrdering Facility: [facility] Address: [address] [place] [address] Performed By: #### 2 4323-8 ####[facility] LABCLIA [id number] [place] [address] [place] AST [Catalytic activity/Vol] 24 U/L Normal 14-40 [facility] Comment on above: Order Comment: Speci men Type: BLOOD SPECIMENOrdering Facility: [facility] Address: [address] [place] [address] Performed By: #### 2 4323-8 ####[facility] LABCLIA [id number] [place] [address] [place] Bilirubin [Mass/Vol] 0.6 mg/dL Normal 0.2-1.3 [facility] Comment on above: Order Comment: Speci men Type: BLOOD SPECIMENOrdering Facility: [facility] Address: [address] [place] [address] Performed By: #### 2 4323-8 ####[facility] LABCLIA [id number] [place] [address] [place] Calcium [Mass/Vol] 9.3 mg/dL Normal 8.5-10.2 [facility] Comment on above: Order Comment: Speci men Type: BLOOD SPECIMENOrdering Facility: [facility] Address: [address] [place] [address] Performed By: #### 2 4323-8 ####[facility] LABCLIA [id number] [place] [address] [place] Chloride [Moles/Vol] 107 mmol/L High 97-105 [facility] Comment on above: Order Comment: Speci men Type: BLOOD SPECIMENOrdering Facility: [facility] Address: [address] [place] [address] Performed By: #### 2 4323-8 ####[facility] LABIA [id number] [place] [address] [place] CO2 [Moles/Vol] 23 mmol/L Normal 22-30 [facility] Comment on above: Order Comment: Speci men Type: BLOOD SPECIMENOrdering Facility: [facility] Address: [address] [place] [address] Performed By: #### 2 4323-8 ####[facility] LABIA [id number] [place] [address] [place] Creatinine [Mass/Vol] 1.50 mg/dL High 0.73-1.22 [facility] Comment on above: Order Comment: Speci men Type: BLOOD SPECIMENOrdering Facility: [facility] Address: [address] [place] [address] Performed By: #### 2 4323-8 ####[facility] LABIA [id number] [place] [address] [place] Creatinine and Glomerular filtration rate.predicted panel (S/P/Bld) 52 mL/min/1.73m??? Low >=60 [facility] Comment on above: Order Comment: Speci men Type: BLOOD SPECIMENOrdering Facility: [facility] Address: [address] [place] [address] Result Comment: Alexandra mated Glomerular Filtration Rate [...] actual GFR. Performed By: #### 2 4323-8 ####[facility] LABCLIA [id number] [place] [address] [place] Glucose [Mass/Vol] 151 mg/dL High 74-99 [facility] Comment on above: Order Comment: Speci men Type: BLOOD SPECIMENOrdering Facility: [facility] Address: [address] [place] [address] Result Comment: The [place] Diabetes Association (ADA) provides guidance for cutoff [...] Standards of Medical Care in Diabetes 2016, [place] [employer]. Diabetes Care. 2016.39(Suppl 1). Performed By: #### 2 4323-8 ####[facility] LABCLIA [id number] [place] [address] [place] Potassium [Moles/Vol] 4.2 mmol/L Normal 3.7-5.1 [facility] Comment on above: Order Comment: Speci men Type: BLOOD SPECIMENOrdering Facility: [facility] Address: [address] [place] [address] Performed By: #### 2 4323-8 ####[facility] LABCLIA [id number] [place] [address] [place] Protein [Mass/Vol] 5.9 g/dL Low 6.3-8.0 [facility] Comment on above: Order Comment: Speci men Type: BLOOD SPECIMENOrdering Facility: [facility] Address: [address] [place] [address] Performed By: #### 2 4323-8 ####[facility] LABCLIA [id number] [place] [address] [place] Sodium [Moles/Vol] 141 mmol/L Normal 136-144 [facility] Comment on above: Order Comment: Speci men Type: BLOOD SPECIMENOrdering Facility: [facility] Address: [address] [place] [id number] Performed By: #### 2 4323-8 ####[facility] LABCLIA [id number] [place] [id number] [place] Urea nitrogen [Mass/Vol] 22 mg/dL Normal 9-24 [facility] Comment on above: Order Comment: Speci men Type: BLOOD SPECIMENOrdering Facility: [facility] Address: [address] [address] [place] [address] Performed By: #### 2 4323-8 ####[facility] LABCLIA [id number] [address] [place] OPERATIVE NOon 01-06-2024 OPERATIVE NO HNO ID: [id number] Author: CHARLOTTE LINDSEY MD Service: Urology Author Type: Physician Type: Operative Report Filed: 02/07/2024 09:31 Note Text: UROLOGY OPERATIVE REPORT LOG ID: [id number] Surgery/Procedure Date: 01/06/2024 Incision/Procedure Start Time: 3:15 PM Incision Close/Procedure End Time: 6:38 PM Surgeon(s)/Proceduralist(s) and Site Inspector(s): Surgeon(s) and Role: * Charlotte Lindsey MD [...] and surgical glue. The other 12 mm certified surgical tech/first assistant ports were closed with 0-Vicryl utilizing [...] 5:57 PM Implanted Devices: None Drains: 20 Polish Zuniga catheter Complications: None SIGNATURE: Rolf Casey MD DATE: January 07, 2024 TIME: 12:06 PM Normal [facility] SURGICAL PATHOLOGYon 024 BLOCK FOR ADDITIONAL BIOMARKERS/MOLECULAR STUDIES A8, A13 Normal [facility] Comment on above: Order Comment: Speci men Type: TISSUE SPECIMENOrdering Facility: [facility] Address: [address] [place] [address] Performed By: #### S ####[facility] LABCLIA [id number] [place] [address] [place] CASE REPORT Normal [facility] Comment on above: Order Comment: Speci men Type: TISSUE SPECIMENOrdering Facility: [facility] Address: [address] [place] [address] Result Comment: Surg [facility] Pathology Report Case: [id number] Authorizing Provider: Charlotte [place] MD Collected: 01/06/2024 05:57 PM Ordering Location: Admitting Received: 01/06/2024 06:00 PM Pathologist: Dilip Acevedo MD Specimen: KIDNEY RADICAL RESECTION LEFT, with mass Performed By: #### S ####[facility] LABCLIA [id number] [place] [address] [place] CLINICAL HISTORY Normal [facility] Comment on above: Order Comment: Speci men Type: TISSUE SPECIMENOrdering Facility: [facility] Address: [address] [place] [address] Result Comment: Pre- op diagnosis: Renal mass [N28.89] Performed By: #### S ####[facility] LABCLIA [id number] [address] [place] FINAL DIAGNOSIS Normal [facility] Comment on above: Order Comment: Speci men Type: TISSUE SPECIMENOrdering Facility: [facility] Address: [address] [place] [address] Result Comment: Kenia guerrier, left, total nephrectomy: - 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 - Surgical margins are negative. - See synoptic template. JKM/LAUREN 01/11/2024 Performed By: #### S ####[facility] LABCLIA [id number] [place] [address] [place] FINAL PERFORMING LAB [facility] Comment on above: Order Comment: Speci men Type: TISSUE SPECIMENOrdering Facility: [facility] Address: [address] [place] [address] Result Comment: Diag nostic interpretation performed at [facility], [address] [place] [address] CLIA# [id number] Watershed Coordinator: Damon Casas M.D. Performed By: #### S ####[facility] LABCLIA [id number] [address] STATES [facility] GROSS DESCRIPTION Normal [facility] Comment on above: Order Comment: Speci men Type: TISSUE SPECIMENOrdering Facility: [facility] Address: [address] [place] [address] Result Comment: Kenia GUERRIER RADICAL RESECTION LEFT [...] present. Photographs are attached to the case. Field Mechanic/Site Lead sections are submitted as follows: A1 ureter margin A2 vascular margin A3-A6 mass with possible renal sinus fat involvement A7-A9 mass with perinephric fat involvement A10-A11 different areas of mass (possible involvement of vessels) A12-A14 mass involving possible vessels A15 uninvolved kidney parenchyma MLG January 07, 2024 11:06 AM Gross examination performed at [facility], [address] [place] [address] Performed By: #### S ####[facility] LABIA [id number] [place] [address] [place] SYNOPTIC REPORT Normal [facility] Comment on above: Order Comment: Speci men Type: TISSUE SPECIMENOrdering Facility: [facility] Address: [address] [place] [address] Result Comment: [place] EY: Nephrectomy KIDNEY: RESECTION [...] Kidney: None identified Performed By: #### S ####[facility] LABIA [id number] [place] [address] [place] [address] CHEST WO IVCONon 01-05-20 CT CHEST WO IVCON * * *Final Report* * * DATE OF EXAM: Jan 05 2024 3:03PM [facility] 0541 - CT CHEST WO IVCON / [...] renal mass, previously evaluated on abdominal CT. Hide Worker (topogram) images: No additional findings. IMPRESSION: No CT evidence of acute abnormality. No findings of metastatic disease in the thorax. Wind Up Worker: PSCB Transcribe Date/Time: Jan 05 2024 3:24P Dictated by : DANIEL LOCKWOOD MD This examination was interpreted and the report reviewed and electronically signed by: DANIEL LOCKWOOD MD on Jan 05 2024 3:29PM EST [id number] Normal [facility] CT Chest WO contraston 01-05 [facility] ECG COMPLETEon 01-05-2024 ECG COMPLETE Ventricular Rate : 6 8 BPM Atrial Rate : 68 BPM P-R Interval : 156 ms QRS Duration : 86 ms Q-T Interval : 368 ms QTC Calculation(Bazett) : 391 ms Calculated P Wedron : 68 degrees Calculated R Wedron : 68 degrees Calculated T Wedron : 50 degrees NORMAL SINUS RHYTHM POSSIBLE LEFT ATRIAL ENLARGEMENT BORDERLINE ECG Confirmed by MARGARITA LANDEROS MD ([id number]) on 01/08/2024 9:05:40 PM NAME : ASHLEY LEDESMA PID : [id number] : 1960 Gender : Male Race : ORD : [id number] Procedure Date : Jan 05 2024 08:47:22 [...] : , Acquired by : BEREKET SINGLETARY [facility] HISTORY PHYSICALon HISTORY PHYSICAL HNO ID: [id number] Author: LEYDA PARKER DO Service: ? Author [...] fevers. Neuro: No history of TIA's, stroke, GROUP FITNESS MANAGER tumor, impaired sensorium, hemiplegia, paraplegia or quadraplegia. No neurological symptoms or problems. Respiratory: No history of current cough or dyspnea, or pneumonia in the past 6 weeks. No history of respiratory/pulmonary symptoms or problems. Cardiovascular: No history of HTN requiring medication, no history of angina, CHF, [place], cardiac surgery or stents. Denies rest pain, gangrene or revascularization/amputatio n for PVD. No history of cardiovascular symptoms [...] He clements (more content not included)... Normal [facility] RENAL FLOW/FXN WO PHARMon 01-05-2024 NM RENAL FLOW/FXN WO PHARM * * *Final Report* * * DATE OF EXAM: Jan 05 2024 1:23PM [facility] 0036 - [place] RENAL FLOW/FXN WO PHARM [...] Split renal function: Left- 49%; right- 51% Wind Up Worker: SHASHI Transcribe Date/Time: Jan 05 2024 3:48P Dictated by : YING HERNANDEZ MD This examination was interpreted and the report reviewed and electronically signed by: YING HERNANDEZ MD on Jan 05 2024 3:51PM EST [id number] Normal [facility] No Panel Informationon 01-05 [facility] MR Kidney WO and W contrast Karen 01-04-2024 [facility] MRI KIDNEY WO/W IVCONon MRI KIDNEY WO/W IVCON * * *Final Report* * * DATE OF EXAM: Jan 04 2024 10:39AM [facility] 0721 - MRI KIDNEY WO/W IVCON [...] included: axial precontrast T1 weighted in- and xsw-tp-[id number], axial and coronal HASTE, axial DWI with [...] metastatic disease in the visualized upper abdomen. Wind Up Worker: SHASHI Transcribe Date/Time: Jan 04 2024 10:44A Dictated by : RAMONITA SHEEHAN DO This examination was interpreted and the report reviewed and electronically signed by: SHARONDA GALLAGHER MD on Jan 04 2024 12:58PM EST [id number] Normal [facility] TYPE AND SCREEN,30 DAYon ABO group Nom (Bld) O [facility] Blood group antibody screen Ql Negative [facility] HIstorical Ab Scr Status Negative [facility] Rh Nom (Bld) Positive [facility] CBC panel Auto (Bld)on 01-03 Erythrocyte distribution width (RBC) [Ratio] 14.4 % 11.5 - 15.0 % [facility] Hematocrit (Bld) [Volume fraction] 42.3 % 39.0 - 51.0 % [facility] Hemoglobin (Bld) [Mass/Vol] 13.4 g/dL 13.0 - 17.0 g/dL [facility] MCH (RBC) [Entitic mass] 27.5 pg 26.0 - 34.0 pg [facility] MCHC (RBC) [Mass/Vol] 31.7 g/dL 30.5 - 36.0 g/dL [facility] MCV (RBC) [Entitic vol] 86.9 fL 80.0 - 100.0 fL [facility] Nucleated RBC (Bld) [#/Vol] <0.01 k/uL [facility] Platelet mean volume (Bld) [Entitic vol] 12.9 fL High 9.0 - 12.7 fL [facility] Platelets (Bld) [#/Vol] 180 10*3/uL 150 - 400 k/uL [facility] RBC (Bld) [#/Vol] 4.87 10*6/uL 4.20 - 6.0 0 m/uL [facility] WBC (Bld) [#/Vol] 5.60 10*3/uL 3.70 - 11. 00 k/uL [facility] Erythrocyte distribution width (RBC) [Ratio] 14.4 % Normal 11.5-15.0 [facility] Comment on above: Order Comment: Speci men Type: BLOOD SPECIMENOrdering Facility: [facility] Address: [address] [place] [address] Performed By: #### 5 8410-2 ####[facility] LABCLIA [id number] [place] [address] Hematocrit (Bld) [Volume fraction] 42.3 % Normal 39.0-51.0 [facility] Comment on above: Order Comment: Speci men Type: BLOOD SPECIMENOrdering Facility: [facility] Address: [address] [place] [address] Performed By: #### 5 8410-2 ####[facility] LABCLIA [id number] [place] [address] Hemoglobin (Bld) [Mass/Vol] 13.4 g/dL Normal 13.0-17.0 [facility] Comment on above: Order Comment: Speci men Type: BLOOD SPECIMENOrdering Facility: [facility] Address: [address] [place] [address] Performed By: #### 5 8410-2 ####[facility] LABCLIA [id number] [place] [address] MCH (RBC) [Entitic mass] 27.5 pg Normal 26.0-34.0 [facility] Comment on above: Order Comment: Speci men Type: BLOOD SPECIMENOrdering Facility: [facility] Address: [address] [place] [address] Performed By: #### 5 8410-2 ####[facility] LABCLIA [id number] [place] [address] MCHC (RBC) [Mass/Vol] 31.7 g/dL Normal 30.5-36.0 [facility] Comment on above: Order Comment: Speci men Type: BLOOD SPECIMENOrdering Facility: [facility] Address: [address] [place] [address] Performed By: #### 5 8410-2 ####[facility] LABIA [id number] [place] [address] MCV (RBC) [Entitic vol] 86.9 fL Normal 80.0-100.0 [facility] Comment on above: Order Comment: Speci men Type: BLOOD SPECIMENOrdering Facility: [facility] Address: [address] [place] [address] Performed By: #### 5 8410-2 ####[facility] LABCLIA [id number] [place] [address] Nucleated RBC (Bld) [#/Vol] 10*3/uL Normal <0.01 [facility] Comment on above: Order Comment: Speci men Type: BLOOD SPECIMENOrdering Facility: [facility] Address: [address] [place] [address] Performed By: #### 5 8410-2 ####[facility] LABCLIA [id number] [place] [address] Platelet mean volume (Bld) [Entitic vol] 12.9 fL High 9.0-12.7 [facility] Comment on above: Order Comment: Speci men Type: BLOOD SPECIMENOrdering Facility: [facility] Address: [address] [place] [address] Performed By: #### 5 8410-2 ####[facility] LABCLIA [id number] [place] [address] Platelets (Bld) [#/Vol] 180 10*3/uL Normal 150-400 [facility] Comment on above: Order Comment: Speci men Type: BLOOD SPECIMENOrdering Facility: [facility] Address: [address] [place] [address] Result Comment: No c lot detected.Results checked and verified. Performed By: #### 5 8410-2 ####[facility] LABCLIA [id number] [place] [address] RBC (Bld) [#/Vol] 4.87 10*6/uL Normal 4.20-6.00 [facility] Comment on above: Order Comment: Speci men Type: BLOOD SPECIMENOrdering Facility: [facility] Address: [address] [place] [address] Performed By: #### 5 8410-2 ####[facility] LABCLIA [id number] [place] [address] WBC (Bld) [#/Vol] 5.60 10*3/uL Normal 3.70-11.00 [facility] Comment on above: Order Comment: Speci men Type: BLOOD SPECIMENOrdering Facility: [facility] Address: [address] [place] [address] Performed By: #### 5 8410-2 ####[facility] LABCLIA [id number] [place] [address] CONFIRM BLOOD TYPEon 024 ABO group Nom (Bld) O [facility] Rh Nom (Bld) Positive [facility] ABO O Normal [facility] Comment on above: Order Comment: Speci men Type: BLOOD SPECIMENOrdering Facility: [facility] Address: [address] [place] [address] Performed By: #### C ONABO ####CC MAIN BLOOD BANKCLIA [id number] [address] [place] Rh Nom (Bld) Positive Normal [facility] Comment on above: Order Comment: Speci men Type: BLOOD SPECIMENOrdering Facility: [facility] Address: [address] [place] [address] Performed By: #### C ONABO ####CC MAIN BLOOD BANKCLIA [id number] [place] [address] [place] Comprehensive metabolic 2000 panelon 01-03-2024 Albumin [Mass/Vol] 5.0 g/dL High 3.9 - 4.9 g/dL [facility] ALP [Catalytic activity/Vol] 81 U/L 38 - 113 U/L [facility] ALT [Catalytic activity/Vol] 11 U/L 10 - 54 U/L [facility] Anion gap [Moles/Vol] 13 mmol/L 9 - 18 mmol/L [facility] AST [Catalytic activity/Vol] 24 U/L 14 - 40 U/L [facility] Bilirubin [Mass/Vol] 0.8 mg/dL 0.2 - 1 .3 mg/dL [facility] Calcium [Mass/Vol] 10.5 mg/dL High 8.5 - 10. 2 mg/dL [facility] Chloride [Moles/Vol] 105 mmol/L 97 - 10 5 mmol/L [facility] CO2 [Moles/Vol] 25 mmol/L 22 - 30 mmol/L [facility] Creatinine [Mass/Vol] 1.35 mg/dL High 0.73 - 1.22 mg/dL [facility] Estimated Glomerular Filtration Rate 59 mL/min/1.73m Low >=60 mL/min/1.73m [facility] Glucose [Mass/Vol] 105 mg/dL High 74 - 99 mg/dL [facility] Potassium [Moles/Vol] 4.3 mmol/L 3.7 - 5.1 mmol/L [facility] Protein [Mass/Vol] 7.4 g/dL 6.3 - 8.0 g/dL [facility] Sodium [Moles/Vol] 143 mmol/L 136 - 144 mmol/L [facility] Urea nitrogen [Mass/Vol] 22 mg/dL 9 - 24 mg/dL [facility] Albumin [Mass/Vol] 5.0 g/dL High 3.9-4.9 [facility] Comment on above: Order Comment: Speci men Type: BLOOD SPECIMENOrdering Facility: [facility] Address: [address] [place] [address] Performed By: #### 2 4323-8 ####[facility] LABCLIA [id number] [place] [address] ALP [Catalytic activity/Vol] 81 U/L Normal 38-113 [facility] Comment on above: Order Comment: Speci men Type: BLOOD SPECIMENOrdering Facility: [facility] Address: [address] [place] [address] Performed By: #### 2 4323-8 ####[facility] LABCLIA [id number] [place] [address] ALT [Catalytic activity/Vol] 11 U/L Normal 10-54 [facility] Comment on above: Order Comment: Speci men Type: BLOOD SPECIMENOrdering Facility: [facility] Address: [address] [place] [address] Performed By: #### 2 4323-8 ####[facility] LABCLIA [id number] [place] [address] Anion gap [Moles/Vol] 13 mmol/L Normal 9-18 [facility] Comment on above: Order Comment: Speci men Type: BLOOD SPECIMENOrdering Facility: [facility] Address: [address] [place] [address] Performed By: #### 2 4323-8 ####[facility] LABCLIA [id number] [place] [address] AST [Catalytic activity/Vol] 24 U/L Normal 14-40 [facility] Comment on above: Order Comment: Speci men Type: BLOOD SPECIMENOrdering Facility: [facility] Address: [address] [place] [address] Performed By: #### 2 4323-8 ####[facility] LABCLIA [id number] [place] [address] Bilirubin [Mass/Vol] 0.8 mg/dL Normal 0.2-1.3 [facility] Comment on above: Order Comment: Speci men Type: BLOOD SPECIMENOrdering Facility: [facility] Address: [address] [place] [address] Performed By: #### 2 4323-8 ####[facility] LABCLIA [id number] [place] [address] Calcium [Mass/Vol] 10.5 mg/dL High 8.5-10.2 [facility] Comment on above: Order Comment: Speci men Type: BLOOD SPECIMENOrdering Facility: [facility] Address: [address] [place] [address] Performed By: #### 2 4323-8 ####[facility] LABCLIA [id number] [place] [address] Chloride [Moles/Vol] 105 mmol/L Normal 97-105 [facility] Comment on above: Order Comment: Speci men Type: BLOOD SPECIMENOrdering Facility: [facility] Address: [address] [place] [address] Performed By: #### 2 4323-8 ####[facility] LABCLIA [id number] [place] [address] CO2 [Moles/Vol] 25 mmol/L Normal 22-30 [facility] Comment on above: Order Comment: Speci men Type: BLOOD SPECIMENOrdering Facility: [facility] Address: [address] [place] [address] Performed By: #### 2 4323-8 ####[facility] LABCLIA [id number] [place] [address] Creatinine [Mass/Vol] 1.35 mg/dL High 0.73-1.22 [facility] Comment on above: Order Comment: Speci men Type: BLOOD SPECIMENOrdering Facility: [facility] Address: [address] [place] [address] Performed By: #### 2 4323-8 ####[facility] LABCLIA [id number] [place] [address] Creatinine and Glomerular filtration rate.predicted panel (S/P/Bld) 59 mL/min/1.73m??? Low >=60 [facility] Comment on above: Order Comment: Speci men Type: BLOOD SPECIMENOrdering Facility: [facility] Address: [address] [place] [address] Result Comment: Alexandra mated Glomerular Filtration Rate [...] actual GFR. Performed By: #### 2 4323-8 ####[facility] LABCLIA [id number] [place] [address] Glucose [Mass/Vol] 105 mg/dL High 74-99 [facility] Comment on above: Order Comment: Speci men Type: BLOOD SPECIMENOrdering Facility: [facility] Address: [address] [place], [place] [address] Result Comment: The [place] Diabetes Association (ADA) provides guidance for cutoff [...] Standards of Medical Care in Diabetes 2016, [place] [employer]. Diabetes Care. 2016.39(Suppl 1). Performed By: #### 2 4323-8 ####[facility] LABCLIA [id number] [place] [address] Potassium [Moles/Vol] 4.3 mmol/L Normal 3.7-5.1 [facility] Comment on above: Order Comment: Speci men Type: BLOOD SPECIMENOrdering Facility: [facility] Address: [address] [place] [address] Performed By: #### 2 4323-8 ####[facility] LABCLIA [id number] [place] [address] Protein [Mass/Vol] 7.4 g/dL Normal 6.3-8.0 [facility] Comment on above: Order Comment: Speci men Type: BLOOD SPECIMENOrdering Facility: [facility] Address: [address] [place], [place] [address] Performed By: #### 2 4323-8 ####[facility] LABCLIA [id number] [place] [address] Sodium [Moles/Vol] 143 mmol/L Normal 136-144 [facility] Comment on above: Order Comment: Speci men Type: BLOOD SPECIMENOrdering Facility: [facility] Address: [address] [place] [address] Performed By: #### 2 4323-8 ####[facility] LABCLIA [id number] [place] [address] Urea nitrogen [Mass/Vol] 22 mg/dL Normal 9-24 [facility] Comment on above: Order Comment: Speci men Type: BLOOD SPECIMENOrdering Facility: [facility] Address: [address] [place] [address] Performed By: #### 2 4323-8 ####[facility] LABCLIA [id number] [place] [address] PT panel Coag (PPP)on 2023 INR Coag (PPP) [Relative time] 1.0 {INR} Normal 0.9-1.3 [facility] Comment on above: Order Comment: Speci men Type: BLOOD SPECIMENOrdering Facility: [facility] Address: [address] [place] [address] Result Comment: Yulia min K Antagonist (VKA) Therapeutic Range: INR 2 to 3 (Target INR of 2.5) Note: For patients treated with VKA drugs, such as warfarin, the [place] [employer] 2012 Guideline recommends [...] GH, et al. Chest 2012, 141:7S-47S Jaya MCCRARY et al. [facility] 2017, 70: 252-289 Performed By: #### 3 4528-0, 78340-9 ####[facility] LABCLIA [id number] [address] [place] PT Coag (PPP) [Time] 10.9 s Normal 9.7-13.0 [facility] Comment on above: Order Comment: Speci men Type: BLOOD SPECIMENOrdering Facility: [facility] Address: [address] [place] [address] Performed By: #### 3 4528-0, 73243-6 ####[facility] LABCLIA [id number] [address] [facility] TYPE AND SCREEN,30 DAYon ABO O Normal [facility] Comment on above: Order Comment: Speci men Type: BLOOD SPECIMENOrdering Facility: [facility] Address: [address] [place] [address] Performed By: #### T [id number] ####[facility] BLOOD BANKIA [id number] [address] [place] HISTORICAL AB SCR STATUS Negative Normal [facility] Comment on above: Order Comment: Speci men Type: BLOOD SPECIMENOrdering Facility: [facility] Address: [address] [place] [address] Performed By: #### T SCR30 ####[facility] BLOOD BANKCLIA [id number] [place] [address] [place] Rh Nom (Bld) Positive Normal [facility] Comment on above: Order Comment: Speci men Type: BLOOD SPECIMENOrdering Facility: [facility] Address: [address] [place] [address] Performed By: #### T SCR30 ####CC MAIN BLOOD BANKCLIA [id number] [address] [place] aPTT PPPon 01-03-2024 aPTT Coag (PPP) [Time] 27.9 s Normal 23.0-32.4 [facility] Comment on above: Order Comment: Speci men Type: BLOOD SPECIMENOrdering Facility: [facility] Address: [address] [place] [address] Result Comment: Shari en Plasma [employer]quot Performed By: #### 3 4528-0, 50351-4 ####[facility] LABCLIA [id number] [facility] [id number] [address] [place] CNOVon 12-21-2023 CNOV Office Visit (UROLMN ) ASHLEY LEDESMA ([id number]) 1960 M Date Time Provider Department 12/21/23 1:50 PM CHARLOTTE LINDSEY UROGÓMEZ During your visit today, we recorded the [...] of Dr. Charlotte Lindsey MD. Electronically signed: Thuy Hargrove, December 21, 2023 11:10 AM (more content not included)... Normal [facility] URINALYSIS, REFLEX MICROSCOP ICon 12-21-2023 Bilirubin Ql (U) Negative Normal Negative [facility] Comment on above: Order Comment: Speci men Type: URINE SPECIMENOrdering Facility: [facility] Address: [address] [place] [address] Performed By: #### L [id number] ####[facility] LABCLIA [id number] [place] [address] [place] Clarity (Unsp spec) Clear Normal Clear [facility] Comment on above: Order Comment: Speci men Type: URINE SPECIMENOrdering Facility: [facility] Address: [address] [place] [address] Performed By: #### L [id number] ####[facility] LABCLIA [id number] [place] [address] [place] Color (U) Light Yellow Normal Yellow [facility] Comment on above: Order Comment: Speci men Type: URINE SPECIMENOrdering Facility: [facility] Address: [address] [place] [address] Performed By: #### L [id number] ####[facility] LABCLIA [id number] [place] [address] [place] Glucose Test strip (U) [Mass/Vol] Negative Normal Trace, Negative [facility] Comment on above: Order Comment: Speci men Type: URINE SPECIMENOrdering Facility: [facility] Address: [address] [place] [address] Performed By: #### L [id number] ####[facility] LABCLIA [id number] [place] [address] [place] Hemoglobin Ql (U) Negative Normal Negative, Trace [facility] Comment on above: Order Comment: Speci men Type: URINE SPECIMENOrdering Facility: [facility] Address: [address] [place] [address] Performed By: #### L [id number] ####[facility] LABCLIA [id number] [place] [address] [place] Ketones Ql (U) Negative Normal Negative, Trace [facility] Comment on above: Order Comment: Speci men Type: URINE SPECIMENOrdering Facility: [facility] Address: [address] [place] [address] Performed By: #### L [id number] ####[facility] LABCLIA [id number] [place] [address] [place] Leukocyte esterase Test strip Ql (U) Negative Normal Negative, 25 [place]/uL [facility] Comment on above: Order Comment: Speci men Type: URINE SPECIMENOrdering Facility: [facility] Address: [address] [place] [address] Performed By: #### L [id number] ####[facility] LABCLIA [id number] [place] [address] [place] Nitrite Ql (U) Negative Normal Negative [facility] Comment on above: Order Comment: Speci men Type: URINE SPECIMENOrdering Facility: [facility] Address: [address] [place] [address] Performed By: #### L [id number] ####[facility] LABIA [id number] [place] [address] [place] pH (U) 6.0 [pH] Normal 5.0-8.0 [facility] Comment on above: Order Comment: Speci men Type: URINE SPECIMENOrdering Facility: [facility] Address: [address] [place] [address] Performed By: #### L [id number] ####[facility] LABIA [id number] [place] [address] [place] Protein (U) [Mass/Vol] Negative Normal Trace, Negative [facility] Comment on above: Order Comment: Speci men Type: URINE SPECIMENOrdering Facility: [facility] Address: [address] [place] [address] Performed By: #### L [id number] ####[facility] LABIA [id number] [place] [address] [place] Specific gravity (U) [Rel density] 1.009 Normal 1.005-1.030 [facility] Comment on above: Order Comment: Speci men Type: URINE SPECIMENOrdering Facility: [facility] Address: [address] [place] [address] Performed By: #### L [id number] ####[facility] LABIA [id number] [place] [address] [place] Urobilinogen Ql (U) Negative Normal Negative [facility] Comment on above: Order Comment: Speci men Type: URINE SPECIMENOrdering Facility: [facility] Address: [address] [place] [address] Performed By: #### L [id number] ####[facility] LABCLIA [id number] [facility] [place] [address] [place] Lab Reportson 12-16-2023 Lab Reports [id number]#1.00TIFF Normal [facility] RAD - CT Reporton 12-16-2023 RAD - CT Report [id number]#1.00TIFF Normal [facility] RAD - CT Reporton 12-14-2023 RAD - CT Report [id number]#1.00TIFF Normal [facility] UroVysion Fish and Urine Cyt o ([facility])on 12-07-2023 UVFISH & UC Diagnosis Info Invalid Interpretation Code [facility] Comment on above: Result Comment: A:Ur ine,Urine:Voided [...] correlated with cytology and cystoscopy results.* CPT 69198, 86991. Microscopic Notes - Microscopic Notes - Abnormal cells 9p21 deletions: Abnormal cells aneploid events: Total cells analyzed: 84 Hematuria: Gross Description Site ID:A color Yellow fixative Alcohol Received 110 mls of clear yellow fluid with the patient's name and, Urine on the vial. Electronically signed by : on: 12/07/2023 08:46:27 Performed By: #### 1 [id number] ####[facility] [address] [place] [address] Consent for Procedure/Surger yon 12-01-2023 Consent for Procedure/Surgery [id number]#1.00TIFF [facility] Ambulatory Visit Summaryon 0 11-30-2023 [...] MD Where: [facility] Patient Educationon 11-30-19 24 Patient Education Urology [...] Follow these instructions at home: ? Take fhha-oni-povpdcb and prescription medicines only as told by [...] the medicine (more content not included)... Normal [facility] UroVysion Fish and Urine Cyt o ([facility])on 11-30-2023 [facility] Method of Extraction Voided Normal [facility] Comment on above: Performed By: #### 1 [id number] ####[facility] [address] [place] [address] [facility] Number of Jars 1 Invalid Interpretation Code [facility] Comment on above: Performed By: #### 1 [id number] ####[facility] [address] [place] [address] [facility] Specimen Urine Normal [facility] Comment on above: Performed By: #### 1 [id number] ####[facility] [address] [facility] [place] [address] [facility] Type of Service Technical Only Normal [facility] Comment on above: Performed By: #### 1 [id number] ####[facility] [address] [facility] [place] [address] Urology Office/Clinic Noteon 11-30-2023 Urology Office/Clinic Note [...] get a CT scan done soon at [facility]. Will call pt with results. 2. Urinary retention (R33.9: Retention of urine, unspecified) Pt had called into the office on 11/23/23 stating he had gone to [facility] ER that morning due to not being [...] leaking. PVR 38 cc (at prior OV) [facility] ER Visit 11/23/23 - c/o retention, d/c [...] dose. Call for refills. 5. Anticoagulated (Z79.01: snf (current) use of anticoagulants) Takes 81 mg ASA daily. 6. Erectile dysfunction (N52.9: Male erect (more content not included)... Normal [facility] Comment on above: Result Comment: Elec tronically [...] WILLIAMSON, Davey Hoover Where: [facility] [address] [place] [address] \.br \ Medications\ .br\ What How Much [...] choosing us for your care.\.br\ \.br \ [facility] Provider Letteron 11-26-2023 Provider Letter (Inserted Image. Shannan ble to display) November 26, 2023 ASHLEY LEDESMA [address] [place] [address] : 1960 To Whom It May Concern, Please excuse above patient from work. Date of Illness: From: _11/23/23 To: _11/29/22 May Return to Work On:11/30/22 Restrictions: _None Sincerely, Dr. Davey Jara MD [facility] [address] [place] [address]. [place] [address] Normal [facility] UroVysion Fish and Urine Cyt o ([facility])on 11-17-2023 [facility]ISH & UC Diagnosis Info Invalid Interpretation Code [facility] Comment on above: Result Comment: A:Ur ine,Urine:Voided [...] correlated with cytology and cystoscopy results.* CPT 51112, 04886 Microscopic Notes - Microscopic Notes - Abnormal cells 9p21 deletions: Abnormal cells aneploid events: Total cells analyzed: 36 Hematuria: Gross Description Site ID:A color Yellow fixative Alcohol Received 110 mls of clear yellow fluid with the patient's name and, Urine on the vial. Electronically signed by : on: 11/17/2023 08:51:00 Performed By: #### 1 [id number] ####[facility] [address] [place] [address] Screenson 11-12-2023 Screens [id number]#1.00TIFF Normal [facility] Ambulatory Visit Summaryon 1 01-12-2023 Ambulatory Visit Summary ASHLEY LEDESMA :1960 Visit Date:11/11/2023 Ambulatory Visit Instructions Your Diagnosis BPH with urinary obstruction Gross hematuria Tests Performed Urnls Dip Stick Auto w/o Microscopy POC 95229 Your Care Team Attending Physician - COLLEEN [...] MD Where: [facility] C Urineon 11-11-2023 Bacteria identified Cx Nom (U) Microbiology PROCEDURE: Urine Culture [R1] SOURCE: U CleanCatch BODY SITE: COLLECTED DATE/TIME: 11/09/2023 13:20 EST RECEIVED DATE/TIME: 11/09/2023 17:34 EST START DATE/TIME: 11/09/2023 17:34 EST FREE TEXT SOURCE: RAI CHAPMAN PA-C, PA-C, RAI Hansen FINAL REPORTS Final Report [] Verified Date/Time: 11/11/2023 10:49 EST No growth at 2 days. Performing Locations R1: This test was performed at: [facility], [address] [place] [address], [facility] , , [facility] Comment on above: Performed By: #### 2 [id number] ####[facility] [address] [place] [address] Patient Educationon 11-11-20 23 Patient Education Urology [...] Follow these instructions at home: ? Take ljcs-wou-cvouqfm and prescription medicines only as told by [...] the medicine (more content not included)... Normal [facility] UroVysion Fish and Urine Cyt o ([facility])on 11-11-2023 [facility] Method of Extraction Voided Normal [facility] Comment on above: Performed By: #### 1 [id number] ####[facility] [address] [place] [id number] [facility] Number of Jars 1 Invalid Interpretation Code [facility] Comment on above: Performed By: #### 1 [id number] ####[facility] [address] [place] [address] [facility] Specimen Urine Normal [facility] Comment on above: Performed By: #### 1 [id number] ####[facility] [address] [place] [address] [facility] Type of Service Technical Only Normal [facility] Comment on above: Performed By: #### 1 [id number] ####[facility] [address] [place] [address] Urology Office/Clinic Noteon 11-11-2023 Urology Office/Clinic Note [...] Urine Cyto ([facility]) 3. Anticoagulated (Z79.01: snf (current) use of anticoagulants) Takes 81 mg [...] Urnls Dip Stick Auto w/o Microscopy POC 72240 UroVysion Fish and Urine Cyto ([facility]) [...] ultrasound (US) (more content not included)... Normal [facility] Comment on above: Result Comment: Elec tronically Signed By: COLLEEN Giraldo APRN, Jerica Ojeda\.br\Date and Time Signed: 11/11/23 10:15 EST Consent Formson 07-12-2023 Consent Forms [id number] Normal [facility] Lipid Panel Standardon 07-08 Cholesterol [Mass/Vol] 216.0 mg/dL High 66.0-200.0 [facility] Comment on above: Performed By: #### 1 [id number], [id number] #### [facility] (DEFAULT) [address] [place] [address] Cholesterol in HDL [Mass/Vol] 74 mg/dL High 40-71 [facility] Comment on above: Performed By: #### 1 [id number], [id number] #### [facility] (DEFAULT) [address] [place] [address] Cholesterol in LDL [Mass/Vol] 120 mg/dL High 1-100 [facility] Comment on above: Performed By: #### 1 [id number], [id number] #### [facility] (DEFAULT) [address] [place] [address] Cholesterol.total/Ch olesterol in HDL [Mass ratio] 2.8 {ratio} Normal 0.0-4.5 [facility] Comment on above: Performed By: #### 1 [id number], [id number] #### [facility] (DEFAULT) [address] [place] [address] Triglyceride [Mass/Vol] 105.0 mg/dL Normal 0.0-150.0 [facility] Comment on above: Performed By: #### 1 [id number], [id number] #### [facility] (DEFAULT) [address] [place] [address] VLDL. 21 mg/dL Normal 5-40 [facility] Comment on above: Performed By: #### 1 [id number], [id number] #### [facility] (DEFAULT) [address] [place] [address] PSA Screenon 07-08-2023 PSA Screen 3.42 ng/mL Normal 0.00-4.00 [facility] Comment on above: Result Comment: Uni SquaredOut DxI Nutrit[employer] Access Clinical System (Chemiluminescence) Values obtained with different assay methods or kits cannot be used interchangeably. Results cannot be interpreted as absolute evidence of the presence or absence of malignant disease. Performed By: #### 1 [id number], [id number] #### [facility] (DEFAULT) [address] [place] [address] TESTOSTERONE, TOTALon 2020 Testosterone [Mass/Vol] 340 ng/dL Normal 264-916 [facility] Comment on above: Result Comment: Adul t male reference interval is based on a population of healthy nonobese males (BMI <30) between 19 and 39 years old. Blue, et.al. JCEM 2017,102;3351-3480. PMID: [id number]. Performed By: #### T ESTTOT #### [facility] [address] [address] Yusef Noel COVID-19 PCRon 08-20-2020 SARS-CoV-2, [place] Not Detected Normal Not Detected [facility] Comment on above: Result Comment: This nucleic acid amplification test was developed and its performance characteristics determined by [employer]. Nucleic acid amplification tests include PCR and [...] assay. Performed By: #### C VDPCR #### [facility] [address] [place] [address] Yusef Noel COVID-19 PCRon 08-10-2020 SARS-CoV-2, [place] Not Detected Normal Not Detected [facility] Comment on above: Result Comment: This nucleic acid amplification test was developed and its performance characteristics determined by [employer]. Nucleic acid amplification tests include PCR and [...] assay. Performed By: #### C VDPCR #### [facility] [address] [address] Yusef Noel FOOT RIGHT 3 Son 7 FOOT RIGHT 3 [facility] [address] [place] [address] Patient Name: ASHLEY LEDESMA : 1960Sex: MAge: Race: WhiteMRN: [id number]. Location: 84Patient Status: Date: 08/19/2017 12:45:00 PMCompleted Date: 08/19/2017 12:47 PMRequesting Provider: MARYLIN SARGENT Attending Provider: Report Copy To: Signs & Symptoms: S92.421D Disp fx of dist phalanx of r great toe, 7thD [id number]: AthenaComments: , , , Ordering Provider - MARYLIN SARGENT PA-C , Exam: FOOT RIGHT 3 VWSAccession #: [id number] FOOT RIGHT 3 S 08/19/2017 12:47 PM EDT SIGNS AND SYMPTOMS: [...] Electronically signed by:Blake Mclean M.D.. Transcribed by: [email or web address], User Resident: Electronically Signed by: BLAKE MCLEAN @ 08/19/2017 04:09 PM Normal [facility] Comment on above: Order Comment: , , = ========= , Ordering Provider - MARYLIN SARGENT PA-C , Vital Signs Date Time Vital Sign Value Performing Clinician Facility 10-13-2024 11:10-0500 Body height 177.8 cm Jayne Silveira MD Work Phone: [facility] 10-13-2024 11:10-0500 Body mass index (BMI) [Ratio] 27.36 kg/m2 Jayne Silveira MD Work Phone: [facility] 10-13-2024 11:10-0500 Body temperature 97.7 [degF] Jayne Silveira MD Work Phone: [facility] 10-13-2024 11:10-0500 Body weight 86.5 kg Jayne Silveira MD Work Phone: [facility] 10-13-2024 11:10-0500 Diastolic blood pressure 93 mm[Hg] Jayne Silveira MD Work Phone: [facility] 10-13-2024 11:10-0500 Heart rate 64 /min Jayne Silveira MD Work Phone: [facility] 10-13-2024 11:10-0500 Systolic blood pressure 157 mm[Hg] Jayne Silveira MD Work Phone: [facility] 06-07-2024 11:24-0400 Body height 177.8 cm Jayne Silveira MD Work Phone: [facility] 06-07-2024 11:24-0400 Body mass index (BMI) [Ratio] 26.73 kg/m2 Jayne Silveira MD Work Phone: [facility] 06-07-2024 11:24-0400 Body weight 84.5 kg Jayne Silveira MD Work Phone: [facility] 06-07-2024 11:24-0400 Diastolic blood pressure 87 mm[Hg] Jayne Silveira MD Work Phone: [facility] 06-07-2024 11:24-0400 Heart rate 74 /min Jayne Silveira MD Work Phone: [facility] 06-07-2024 11:24-0400 Systolic blood pressure 165 mm[Hg] Jayne Silveira MD Work Phone: [facility] 03-24-2024 08:11-0400 Body height 177.8 cm Jayne Silveira MD Work Phone: [facility] 03-24-2024 08:11-0400 Body mass index (BMI) [Ratio] 26.44 kg/m2 Jayne Silveira MD Work Phone: [facility] 03-24-2024 08:11-0400 Body temperature 97.7 [degF] Jayne Silveira MD Work Phone: [facility] 03-24-2024 08:11-0400 Body weight 83.6 kg Jayne Silveira MD Work Phone: [facility] 03-24-2024 08:11-0400 Diastolic blood pressure 81 mm[Hg] Jayne Silveira MD Work Phone: [facility] 03-24-2024 08:11-0400 Heart rate 67 /min Jayne Silveira MD Work Phone: [facility] 03-24-2024 08:11-0400 Systolic blood pressure 156 mm[Hg] Jayne Silveira MD Work Phone: [facility] 01-05-2024 10:25-0500 Body height 177.8 cm Pacc 7 Work Phone: [facility] 01-05-2024 10:25-0500 Body temperature 97.39 [degF] Pacc 7 Work Phone: [facility] 01-05-2024 10:25-0500 Body weight 85.5 kg Pacc 7 Work Phone: [facility] 01-05-2024 10:25-0500 Diastolic blood pressure 84 mm[Hg] Pacc 7 Work Phone: [facility] 01-05-2024 10:25-0500 Heart rate 69 /min Pacc 7 Work Phone: [facility] 01-05-2024 10:25-0500 SaO2% (BldA) [Mass fraction] 99 % Pacc 7 Work Phone: [facility] 01-05-2024 10:25-0500 Systolic blood pressure 145 mm[Hg] Pacc 7 Work Phone: [facility] 11-11-2023 08:21-0500 Diastolic blood pressure 84 mm[Hg] Jerica Orzech [facility] 11-11-2023 08:21-0500 Mean blood pressure 103 mm[Hg] Jerica Orzech [facility] 11-11-2023 08:21-0500 Systolic blood pressure 142 mm[Hg] Jerica Orzech [facility] 11-11-2023 08:04-0500 Blood Pressure Location Jerica Orzech [facility] 11-11-2023 08:04-0500 Diastolic blood pressure 78 mm[Hg] Jerica Orzech [facility] 11-11-2023 08:04-0500 Systolic blood pressure 148 mm[Hg] Jerica Giraldo [facility] 09-24-2023 08:16-0400 Blood Pressure Location Davey JARA [facility] 09-24-2023 08:16-0400 Diastolic blood pressure 87 mm[Hg] Daveysaumya JARA [facility] 09-24-2023 08:16-0400 Heart rate 68 /min Daveysaumya JARA [facility] 09-24-2023 08:16-0400 Respiratory rate 16 /min Daveysaumya JARA [facility] 09-24-2023 08:16-0400 Systolic blood pressure 133 mm[Hg] Davey JARA [facility] 07-12-2023 14:06-0400 Blood Pressure Location Garima Eastman [facility] 07-12-2023 14:06-0400 Body temperature 97.16 [degF] Garima Eastman [facility] 07-12-2023 14:06-0400 Diastolic blood pressure 84 mm[Hg] Garima Eastman [facility] 07-12-2023 14:06-0400 Heart rate 72 /min Garima Eastman [facility] 07-12-2023 14:06-0400 Systolic blood pressure 137 mm[Hg] Garima Eastman [facility] 05-05-2023 08:17-0400 Diastolic blood pressure 80 mm[Hg] Delgado SALAM [facility] 05-05-2023 08:17-0400 Mean blood pressure 105 mm[Hg] Delgado SALAM [facility] 05-05-2023 08:17-0400 Systolic blood pressure 154 mm[Hg] Delgado SALAM [facility] 05-05-2023 08:15-0400 Blood Pressure Location Delgado SALAM [facility] 05-05-2023 08:15-0400 Diastolic blood pressure 80 mm[Hg] Delgado SALAM [facility] 05-05-2023 08:15-0400 Heart rate 79 /min Delgado SALAM [facility] 05-05-2023 08:15-0400 Respiratory rate 16 /min Delgado SALAM [facility] 05-05-2023 08:15-0400 Systolic blood pressure 154 mm[Hg] Delgado SALAM [facility] 02-18-2023 19:14-0400 Heart rate 67 /min [facility] 02-18-2023 19:14-0400 SaO2% (BldA) [Mass fraction] 99 % [facility] 02-18-2023 19:14-0400 Respiratory rate 16 /min [facility] 02-18-2023 19:14-0400 Diastolic blood pressure 89 mm[Hg] [facility] 02-18-2023 19:14-0400 Mean blood pressure 115 mm[Hg] [facility] 02-18-2023 19:14-0400 Systolic blood pressure 166 mm[Hg] [facility] 02-18-2023 19:14-0400 Body temperature 97.7 [degF] [facility] 02-18-2023 18:15-0400 Heart rate 62 /min [facility] 02-18-2023 18:15-0400 SaO2% (BldA) [Mass fraction] 98 % [facility] 02-18-2023 18:14-0400 Respiratory rate 16 /min [facility] 02-18-2023 18:14-0400 Diastolic blood pressure 87 mm[Hg] [facility] 02-18-2023 18:14-0400 Mean blood pressure 112 mm[Hg] [facility] 02-18-2023 18:14-0400 Systolic blood pressure 160 mm[Hg] [facility] 02-18-2023 18:14-0400 Body temperature 97.7 [degF] [facility] 02-18-2023 17:07-0400 Heart rate 61 /min [facility] 02-18-2023 17:07-0400 SaO2% (BldA) [Mass fraction] 98 % [facility] 02-18-2023 17:07-0400 Respiratory rate 18 /min [facility] 02-18-2023 17:07-0400 Diastolic blood pressure 83 mm[Hg] [facility] 02-18-2023 17:07-0400 Mean blood pressure 103 mm[Hg] [facility] 02-18-2023 17:07-0400 Systolic blood pressure 144 mm[Hg] [facility] 02-18-2023 17:07-0400 Body temperature 98.06 [degF] [facility] 02-18-2023 15:51-0400 Mean blood pressure 96 mm[Hg] [facility] 02-18-2023 15:51-0400 Respiratory rate 20 /min [facility] 02-18-2023 15:40-0400 Mean blood pressure 80 mm[Hg] [facility] 02-18-2023 15:40-0400 Respiratory rate 15 /min [facility] 02-18-2023 15:35-0400 Mean blood pressure 79 mm[Hg] [facility] 02-18-2023 15:35-0400 Respiratory rate 16 /min [facility] 02-18-2023 14:34-0400 Blood Pressure Location [facility] 02-18-2023 13:50-0400 Body temperature 98.06 [degF] [facility] 02-18-2023 13:50-0400 Heart rate 78 /min [facility] Encounters Encounter Date Encounter Type Care Provider Facility Start: 12-15-2024 End: 12-18-2024 ambulatory Charlotte Lindsey MD Work Phone: Urology Start: 12-11-2024 End: 12-11-2024 ambulatory ADAN Fontaine Roxann Facility:[facility] Start: 12-11-2024 End: 12-11-2024 ambulatory Marco Rivas MD Facility:[facility] Start: 11-23-2024 End: 11-23-2024 Bamboo flowsheet Izzy Munroe MD Work Phone: [facility] Start: 11-23-2024 End: 11-23-2024 Bamboo flowsheet Izzy Munroe MD Work Phone: [facility] Start: 11-23-2024 End: 11-23-2024 Office outpatient visit 25 minutes Izzy Munroe MD Work Phone: [facility] Comment on above: Cortical age-related cataract of both eyes (Primary Dx) Start: 11-23-2024 End: 11-23-2024 ambulatory IZZY MUNROE Not Available Start: 11-10-2024 End: 11-17-2024 ambulatory Charlotte Lindsey MD Work Phone: Urology Comment on above: Lizeth Maldonado III p jeannine Start: 10-27-2024 End: 10-27-2024 ambulatory JADA BALDWINGRIFFIN Facility:[facility] Start: 10-27-2024 ambulatory JADA SANTO Facili ty:[facility] Start: 10-27-2024 End: 10-27-2024 Subsequent hospital visit by physician [facility] ([facility]) Work Phone: [facility] Radiology CT Scan Comment on above: History of renal zack l cancer [Z85.528] Start: 10-13-2024 End: 10-13-2024 Patient encounter procedure Jayne Silveira MD Work Phone: [facility] Comment on above: Screening for genito urinary condition (Primary Dx); Stage 3b chronic kidney disease (HCC) Start: 10-13-2024 End: 10-16-2024 ambulatory Jayne Silveira MD Work Phone: [facility] Start: 09-29-2024 ambulatory Davey Downs ty:[facility] Start: 09-18-2024 End: 09-18-2024 ambulatory ADAN LAMAR Facility:[facility] Start: 09-05-2024 End: 09-05-2024 Patient encounter procedure Charlotte Lindsey MD Work Phone: Urology Comment on above: Elevated prostate sp ecific antigen (PSA) (Primary Dx); Benign prostatic hyperplasia with lower urinary tract symptoms, symptom details unspecified; Impotence of organic origin; History of renal cell cancer; H/O left nephrectomy Start: 09-05-2024 End: 09-08-2024 ambulatory Charlotte Lindsey MD Work Phone: Urology Start: 08-23-2024 End: 08-23-2024 Patient encounter procedure MD Adan Lamar Work Phone: [facility] [place] Work Phone: Start: 08-23-2024 End: 08-23-2024 ambulatory MD Adan Lamar Work Phone: [facility] Work Phone: Start: 08-21-2024 End: 08-21-2024 ambulatory Marco Rivas MD Facility:[facility] Start: 08-09-2024 End: 08-09-2024 ambulatory Gato Banda MD Work Phone: Gastroenterology Comment on above: Cyst of pancreas (Pr imary Dx) Start: 08-09-2024 End: 08-09-2024 Telemedicine consultation with patient Gato Banda MD Work Phone: Gastroenterology Start: 06-16-2024 End: 06-16-2024 ambulatory ADAN LAMAR Facility:[facility] Start: 06-07-2024 End: 06-07-2024 ambulatory Jayne Silveira MD Work Phone: [facility] Start: 06-07-2024 End: 06-07-2024 Patient encounter procedure Jayne Silveira MD Work Phone: [facility] Comment on above: Stage 3b chronic kid eduardo disease (HCC) (Primary Dx); H/O left nephrectomy Start: 04-26-2024 End: 04-26-2024 ambulatory ADAN LAMAR Facility:[facility] Start: 04-26-2024 End: 04-26-2024 Follow-up encounter Jada Santo APRN.HAND SPLITTER Work Phone: Urology Comment on above: Encounter for follow -up surveillance of kidney cancer (Primary Dx); History of renal cell cancer; H/O left nephrectomy; Stage 3a chronic kidney disease (HCC); Pancreatic cyst Start: 04-26-2024 End: 04-26-2024 Telemedicine consultation with patient Jada Santo APRN.HAND SPLITTER Work Phone: Urology Start: 04-25-2024 ambulatory JADA Downs ty:[facility] Start: 04-25-2024 End: 04-25-2024 Subsequent hospital visit by physician [facility] ([facility]) Work Phone: [facility] Radiology CT Scan Comment on above: Renal cell carcinoma of left kidney (HCC) [C64.2] Start: 04-11-2024 Orders Only Jayne peguero MD Work Phone: [facility] Start: 03-24-2024 End: 03-24-2024 ambulatory Jayne Silveira MD Work Phone: [facility] Start: 03-24-2024 End: 03-24-2024 Patient encounter procedure Jayne Silveira MD Work Phone: [facility] Comment on above: H/O left nephrectomy ; Stage 3b chronic kidney disease (HCC) Start: 01-25-2024 End: 01-25-2024 ambulatory Charlotte Lindsey MD Work Phone: Urology Comment on above: Renal cell carcinoma of left kidney (HCC) (Primary Dx); H/O left nephrectomy; Stage 3b chronic kidney disease (HCC) Start: 01-25-2024 End: 01-25-2024 Telemedicine consultation with patient Charlotte Lindsey MD [facility] Start: 01-14-2024 Telephone encounter Adan Lamar MD Work Phone: NOC Comment on above: Follow Up Phone Call (All Clear) Start: 01-11-2024 Telephone encounter Neela Tang Urological & Comment on above: Returning Patient's Call Start: 01-06-2024 End: 01-09-2024 Evaluation and management of inpatient CHARLOTTE LINDSEY Facility:[facility] Start: 01-05-2024 End: 01-05-2024 Subsequent hospital visit by physician Spectct3 Work Phone: Molecular Imaging Comment on above: Acquired cyst of kid eduardo [N28.1] Start: 01-05-2024 End: 01-05-2024 Admission to [facility] Main Work Phone: [facility] Start: 01-05-2024 End: 01-05-2024 ambulatory Pac Main 7 Work Phone: Pre Anesthesia Comment on above: Pre-op evaluation (P rimary Dx) Start: 01-05-2024 End: 01-05-2024 Preprocedural examination done [facility] Main 7 Work Phone: [facility] Work Phone: Start: 01-05-2024 Encounter for other preprocedural examination [facility] Start: 01-05-2024 End: 01-05-2024 ambulatory ADAN LAMAR Facility:[facility] Start: 01-04-2024 End: 01-04-2024 ambulatory ADAN LAMAR Facility:[facility] Start: 01-03-2024 End: 01-03-2024 [facility] Start: 12-21-2023 End: 12-21-2023 Patient encounter procedure Charlotte Lindsey MD Work Phone: Urology Comment on above: Renal mass (Primary Dx); Gross hematuria; Other specified disorders of kidney and ureter; 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); Acquired cyst of kidney Start: 12-21-2023 End: 12-21-2023 ambulatory CHARLOTTE LINDSEY Facility:[facility] Start: 11-30-2023 End: 11-30-2023 ambulatory Davey JARA Facility[facility] Start: 11-30-2023 End: 11-30-2023 Lab Drop off Davey JARA [facility] Start: 11-30-2023 End: 11-30-2023 ambulatory Davey JARA Facility: [facility] Start: 11-30-2023 End: 11-30-2023 Patient encounter procedure Davey JARA [facility] Start: 11-26-2023 End: 11-26-2023 ambulatory Davey JARA Facility:[facility] Start: 11-26-2023 End: 11-26-2023 Patient encounter procedure Davey JARA [facility] [place] Start: 11-24-2023 End: 11-24-2023 ambulatory IZZY MUNROE Not Available Start: 11-11-2023 End: 11-11-2023 ambulatory Jerica X Orzech Facility:[facility] Start: 11-11-2023 End: 11-11-2023 Lab Drop off Jerica X Orzech [facility] Start: 11-11-2023 End: 11-11-2023 ambulatory Jerica X Orzech Facility:[facility] Start: 11-11-2023 End: 11-11-2023 Patient encounter procedure Jerica X Orzech [facility] [place] Start: 11-09-2023 End: 11-09-2023 ambulatory RAI CHAPMAN Facility:[facility] Start: 11-09-2023 End: 11-09-2023 Lab Drop off RAI JONESRY [facility] Start: 11-08-2023 End: 11-08-2023 ambulatory Davey JARA Facility: [facility] Start: 11-08-2023 End: 11-08-2023 Patient encounter procedure [facility] Start: 09-24-2023 End: 09-24-2023 Patient encounter procedure [facility] Start: 07-12-2023 End: 07-12-2023 Patient encounter procedure Garima Eastman [facility] Start: 07-08-2023 End: 07-09-2023 ambulatory ADAN HOY Facility:[facility] Start: 05-05-2023 End: 05-05-2023 Patient encounter procedure Danny CONTRERAS [facility] Start: 02-18-2023 End: 02-18-2023 Emergency department patient visit Kenji Avalos [facility] Start: 01-22-2021 End: 01-23-2021 Patient encounter procedure ADAN HOY Facility:[facility] Start: 08-19-2020 End: 08-20-2020 Patient encounter procedure ADAN HOY Facility:[facility] Start: 08-09-2020 End: 08-10-2020 Patient encounter procedure DANICASHERYL MUNROE Facility:[facility] Start: 08-19-2017 End: 08-20-2017 Ambulatory MARYLIN SARGENT Facility:[facility] Procedures Date Procedure Procedure Detail Performing Clinician Start: 10-27-2024 Mri abdomen w/o & w/contrast material Jada Santo APRN.HAND SPLITTER Work Phone: Start: 10-13-2024 Urnls dip stick/tablet rgnt auto w/o microscopy Jayne Silveira MD Work Phone: Start: 09-05-2024 Urnls dip stick/tablet rgnt auto w/o microscopy Bulk Order Provider Start: 06-07-2024 Creatinine other source Jayne Silveira MD Work Phone: Start: 06-07-2024 Urnls dip stick/tablet rgnt auto w/o microscopy Bulk Order Provider Start: 04-25-2024 Mri abdomen w/o & w/contrast material Jada Santo APRN.HAND SPLITTER Work Phone: Start: 04-25-2024 Ct thorax w/o contrast material Jada malagon APRN.HAND SPLITTER Work Phone: Start: 03-24-2024 Urnls dip stick/tablet rgnt auto w/o microscopy Bulk Order Provider Start: 01-05-2024 Kidney img morphology vascular flow 1 w/o rx Jonny Valencia MD Work Phone: Start: 01-03-2024 Antibody screen ADAN LAMAR Comment on above: Order Comment: Specimen Type: BLOOD SPEC IMENOrdering Facility: [facility] Address: [address] [place] [address] Performed By: #### T [id number] ####CC MAIN BLOOD BANKCLIA [id number] [address] Start: 06-18-2023 Colonoscopy Garima Eastman Start: 06-18-2023 [...] Nose - repair or plastic operation Danny CONTRERAS Tonsillectomy Kenji Avalos Plan of Treatment Date Care Activity Detail Author Start: 10-27-2027 Diabetes Screening Diabetes Screening [facility] Start: 03-24-2027 Diabetes Screening Diabetes Screening [facility] Start: 01-09-2027 Diabetes Screening Diabetes Screening [facility] Start: 01-03-2027 Diabetes Screening Diabetes Screening [facility] Start: 11-27-2025 End: 11-27-2025 Patient encounter procedure 11/27/2025 8:45 AM EST Office Visit [facility] [address] [place] [id number] Izzy Munroe MD [address] [place] [address] [facility] Start: 10-27-2025 Complete blood count Hemoglobin/Hematocrit [facility] Start: 10-27-2025 Creatinine measurement Serum Creatinine [facility] Start: 09-18-2025 Creatinine measurement Serum Creatinine [facility] Start: 06-16-2025 Creatinine measurement Serum Creatinine [facility] Start: 06-07-2025 Creatinine measurement Serum Creatinine [facility] Start: 04-13-2025 End: 04-13-2025 Patient encounter procedure 04/13/2025 11:20 AM EDT Office Visit [facility] [address] [place] [id number] Jayne Silveira MD [address] [place] [address] My Chart request [facility] Comment on above: My Chart request Start: 03-28-2025 End: 03-28-2025 Patient encounter procedure 03/28/2025 10:20 AM EDT Office Visit [facility] [address] [place] [id number] Jayne Silveira MD [address] [place] [address] My Chart request [facility] Comment on above: My Chart request Start: 03-24-2025 Complete blood count Hemoglobin/Hematocrit [facility] Start: 03-24-2025 Creatinine measurement Serum Creatinine [facility] Start: 01-19-2025 End: 01-19-2025 Patient encounter procedure 01/19/2025 11:00 AM EST Office Visit [facility] [address] [address] Jayne Silveira MD [address] [place] [address] My Chart request [facility] Comment on above: My Chart request Start: 12-15-2024 End: 12-15-2024 Patient encounter procedure 12/15/2024 2:30 PM EST Office Visit Urology [address] [address] Charlotte Lindsey MD [address] [address] 3 month follow up per cc'd chart Urology Comment on above: 3 month follow up per cc'd chart Start: 12-13-2024 End: 03-14-2025 ISOPSA ASSAY FOR UROLOGY USE ONLY ISOPSA ASSAY FOR UROLOGY USE ONLY Lab Routine Elevated prostate specific antigen (PSA) Expected: 12/13/2024 (Approximate), Expires: 03/14/2025 [facility] Work Phone: Comment on above: Expected: 12/13/2024 (Approximate), Expi res: 03/14/2025 Start: 12-08-2024 End: 12-08-2024 ambulatory 12/08/2024 2:30 PM EST [facility] Urology [address] [address] Miya Amaya MD [address] [place] [address] 6 month VV for a read per cc chart Urology Comment on above: 6 month VV for a read per cc chart Start: 11-29-2024 Advance Directive Discussion Advance Directive Discussion [facility] Start: 11-23-2024 End: 11-23-2024 Patient encounter procedure 11/23/2024 8:45 AM EST Office Visit [facility] [address] [place] [id number] Izzy Munroe MD [address] [place] [address] Arrived [facility] Comment on above: Arrived Start: 11-03-2024 End: 11-03-2024 ambulatory 11/03/2024 1:30 PM EST [facility] [address] [address] Miya Amaya MD [address] [place] [address] 6 month VV for a read per cc chart Urology Comment on above: 6 month VV for a read per cc chart Start: 11-01-2024 End: 11-01-2024 ambulatory 11/01/2024 10:30 AM EST [facility] [address] [address] Jada Santo APRN.HAND SPLITTER [address] [place] [address] 6 month VV for a read per cc chart Urology Comment on above: 6 month VV for a read per cc chart Start: 10-27-2024 End: 01-26-2025 Comprehensive metabolic 2000 panel - Serum or Plasma COMPREHENSIVE METABOLIC PANEL Lab Routine History of renal cell cancer Expected: 10/27/2024 (Approximate), Expires: 01/26/2025 [facility] Work Phone: Comment on above: Expected: 10/27/2024 (Approximate), Expi res: 01/26/2025 Start: 10-27-2024 End: 10-27-2024 Patient encounter procedure [facility] Radiology CT Scan Comment on above: CT CHEST WO IVCON MRI ABDOMEN WO/W IVC ON COMPREHENSIVE METABO LIC PANEL Start: 10-13-2024 End: 10-13-2024 Patient encounter procedure 10/13/2024 11:40 AM EST Office Visit Kidney [facility] [address] [address] Jayne Silveira MD [address] [place] [address] Return in 4 months Kidney [facility] Comment on above: Return in 4 months Start: 08-23-2024 MR Prostate WO and W contrast IV [facility] Start: 08-23-2024 MR prostate wo/w con MR prostate wo/w con [facility] Start: 08-09-2024 End: 08-09-2024 ambulatory 08/09/2024 10:00 AM EDT [facility] Gastroenterology [address] [address] Gato Banda MD [address] [address] PANCREATIC [facility]ST Gastroenterology Comment on above: PANCREATIC CYST Start: 07-30-2024 Covid-19 Vaccine ( season) Covid-19 Vaccine ( season) [facility] Start: 07-30-2024 Influenza vaccination Influenza Vaccine (#[facility]) [facility] Start: 06-07-2024 End: 06-07-2024 Patient encounter procedure 06/07/2024 11:40 AM EDT Office Visit [facility] [address] [address] Jayne Silveira MD [address] [place] [address] CKD Kidney [facility] Comment on above: CKD Start: 2024 Advance Directive Discussion Advance Directive Discussion [facility] Start: 2024 Pneumococcal Vaccine: 65+ (1 of 1 - PCV) Pneumococcal Vaccine: 65+ (1 of 1 - PCV) [facility] Start: 2024 Pneumococcal Vaccine: 65+ Years (1 of 1 - PCV) Pneumococcal Vaccine: 65+ Years (1 of 1 - PCV) [facility] Start: 04-26-2024 End: 04-26-2024 ambulatory 04/26/2024 2:30 PM EDT [facility] Urology [address] [address] Jada Santo APRN.HAND SPLITTER [address] [place] [address] 3 month f/u RCC per CC Chart Urology Comment on above: 3 month f/u RCC per CC Chart Start: 04-25-2024 End: 04-25-2024 Patient encounter procedure [facility] Radiology CT Scan Comment on above: CT CHEST WO IVCON COMP METABOLIC PANEL MRI ABDOMEN WO/W IVC ON Start: 04-24-2024 End: 07-24-2024 Comprehensive metabolic 2000 panel - Serum or Plasma COMP METABOLIC PANEL Lab Routine Renal cell carcinoma of left kidney (HCC) H/O left nephrectomy Expected: 04/24/2024 (Approximate), Expires: 07/24/2024 [facility] Work Phone: Comment on above: Expected: 04/24/2024 (Approximate), Expi res: 07/24/2024 Start: 01-18-2024 Covid-19 Vaccine ( season) Covid-19 Vaccine ( season) [facility] Start: 11-29-2023 Behavioral Health Screening Behavioral Health Screening [facility] Start: 11-29-2023 Depression Assessment Depression Assessment [facility] Start: 2019 RSV Vaccine (1 - 1-dose 60+ series) RSV Vaccine (1 - 1-dose 60+ series) [facility] Start: 2019 RSV Vaccine (1 - Risk 60-74 years 1-dose series) RSV Vaccine (1 - Risk 60-74 years 1-dose series) [facility] Start: 2014 Prostate specific antigen measurement Prostate Cancer Screening Discussion [facility] Start: 2009 Pneumococcal Vaccine: 50+ (1 of 1 - PCV) Pneumococcal Vaccine: 50+ (1 of 1 - PCV) [facility] Start: 2004 Screening for malignant neoplasm of colon [facility] Start: 1994 Lipid panel Lipid Screening [facility] Start: 1978 Urine microalbumin profile DTaP,Tdap,Td Vaccine (1 - Tdap) [facility] Start: 1977 Annual PCP Team Chronic Disease Visit Annual PCP Team Chronic Disease Visit [facility] Start: 1977 Anxiety Screening Anxiety Screening [facility] Start: 1977 Depression Screening Depression Screening [facility] Start: 1977 Hepatitis C screening Hepatitis C Screening [facility] Start: 1977 HIV screening HIV Screening [facility] Start: 1959 Abdominal aortic aneurysm screening Abdominal Aortic Aneurysm Screening [facility] Start: 1959 Screening for malignant neoplasm of colon [facility] End: 02-23-2025 CT Chest WO contrast CT CHEST WO IVCON Radiology Routine Renal cell carcinoma of left kidney (HCC) 1 Occurrences starting 01/25/2024 until 02/23/2025 [facility] Work Phone: Comment on above: 1 Occurrences starting 01/25/2024 until 02/23/2025 End: 05-26-2025 CT Chest WO contrast CT CHEST WO IVCON Radiology Routine History of renal cell cancer 1 Occurrences starting 04/26/2024 until 05/26/2025 [facility] Comment on above: 1 Occurrences starting 04/26/2024 until 05/26/2025 CT Chest WO contrast CT CHEST WO IVCON Radiology Routine History of renal cell cancer 10/27/2024 9:38 AM EST [facility] Work Phone: End: 12-21-2024 ECG COMPLETE ECG COMPLETE ECG Routine Renal mass Gross hematuria Other specified disorders of kidney and ureter 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) 1 Occurrences starting 12/21/2023 until 12/21/2024 [facility] Work Phone: Comment on above: 1 Occurrences starting 12/21/2023 until 12/21/2024 End: 02-23-2025 MR Abdomen WO and W contrast IV MRI ABDOMEN WO/W IVCON Radiology Routine Renal cell carcinoma of left kidney (HCC) 1 Occurrences starting 01/25/2024 until 02/23/2025 [facility] Work Phone: Comment on above: 1 Occurrences starting 01/25/2024 until 02/23/2025 End: 05-26-2025 MR Abdomen WO and W contrast IV MRI ABDOMEN WO/W IVCON Radiology Routine History of renal cell cancer 1 Occurrences starting 04/26/2024 until 05/26/2025 [facility] Comment on above: 1 Occurrences starting 04/26/2024 until 05/26/2025 End: 06-07-2025 Renal function 2000 panel - Serum or Plasma RENAL FUNCTION PANEL Lab Routine Stage 3b chronic kidney disease (HCC) H/O left nephrectomy Once per week for 4 Occurrences starting 06/07/2024 until 06/07/2025, 1 completed [facility] Work Phone: Comment on above: Once per week for 4 Occurrences starting 06/07/2024 until 06/07/2025, 1 completed UA DIP, URINE (POC) UA DIP, URIN E (POC) Lab Routine Screening for genitourinary condition Ordered: 10/13/2024 [facility] Work Phone: Comment on above: Ordered: 10/13/2024 [facility] Immunizations Immunization Date Immunization Notes Care Provider [facility] 08-25-2024 influenza virus vaccine, unspecified formulation Izzy Munroe MD Work Phone: [facility] 09-17-2023 influenza virus vaccine, unspecified formulation Davey JARA [facility] 01-04-2023 zoster vaccine recombinant Delgado SALAM [facility] 10-24-2022 zoster vaccine recombinant Delgado SALAM [facility] 09-18-2022 influenza virus vaccine, unspecified formulation Kenji Avalos [facility] 09-18-2022 Moderna Bivalent Booster Vaccination Izzy Munroe MD Work Phone: [facility] 09-18-2022 SARS-CoV-2 (COVID-19 ) [id number] [facility] 09-26-2021 SARS-CoV-2 (COVID-19 ) mRNA BNT-162b2 vax [facility] A[facility]os [facility] 09-01-2021 influenza virus vaccine, unspecified formulation [facility] 03-17-2021 SARS-CoV-2 (COVID-19 ) mRNA BNT-162b2 [facility]ax [facility] 02-20-2021 SARS-CoV-2 (COVID-19 ) mRNA BNT-162b2 vax [facility] 09-09-2020 influenza virus vaccine, unspecified formulation [facility] 09-02-2020 influenza virus vaccine, unspecified formulation [facility] 09-13-2019 influenza virus vaccine, unspecified formulation [facility] 09-20-2018 influenza virus vaccine, unspecified formulation [facility] 09-06-2017 influenza, unspecifi ed formulation [facility] 09-18-2015 influenza virus vaccine, unspecified formulation [facility] 08-28-2014 influenza virus vaccine, unspecified formulation [facility] 09-04-2010 influenza virus vaccine, unspecified formulation [facility] 07-03-2010 hepatitis A and hepatitis B vaccine [facility] 01-30-2010 hepatitis A and hepatitis B vaccine [facility] 01-02-2010 hepatitis A and hepatitis B vaccine [facility] Payers Date Payer Category Payer Unknown [id number] 2024 Self-pay [id number] 2024 Medicare [id number] 2023 Medicare [id number] 2023 Unknown [id number] 2021 Private Health Insurance [id number] 2021 Unknown [id number] 1959 Unknown [id number] 1959 Unknown [id number] 2.16.84 0.1.954853.3.579.2.593 1959 Unknown [id number] 2.16.84 0.1.050529.3.579.2.593 1959 Unknown [id number] 2.16.84 0.1.039567.3.579.2.593 1959 Unknown [id number] 2.16.8 40.1.408090.3.579.2.727 1959 Unknown [id number] 2.16.8 40.1.260046.3.579.2.727 1959 Unknown [id number] 2.16.8 40.1.817821.3.579.2.727 1959 Unknown [id number] 2.16.8 40.1.235738.3.579.2.727 1959 Unknown [id number] 2.16.8 40.1.014813.3.579.2.727 1959 Unknown [id number] 2.16.8 40.1.792435.3.579.2.727 1959 Unknown [id number] 2.16.8 40.1.656291.3.579.2.727 1959 Unknown [id number] 2.16.8 40.1.601966.3.579.2.727 1959 Unknown [id number] 2.16.84 0.1.097482.3.579.2.1259 1959 Unknown [id number] 2.16.840 .1.230702.3.579.2.1259 1959 Unknown [id number] 2.16. 840.1.349741.3.579.2.196 1959 Unknown [id number] 2.16. [id number] Unknown [id number] 2.16.8 [id number] Worker's Compensation [id number] Social History Date Type Detail Facility Start: 02-18-2023 End: 03-24-2024 Tobacco smoking status Ex-smoker (finding) [facility] Start: 12-21-2023 End: 01-05-2024 Sex Assigned At Male [facility] Start: 11-11-2023 Tobacco smoking status Never [facility] End: 11-29-1989 History of tobacco use Current smoker [facility] History of tobacco use Cigarette Smoker [facility] Start: 01-05-2024 End: 03-24-2024 Tobacco use and exposure Smokeless tobacco non-user [facility] Start: 01-05-2024 End: 12-15-2024 Alcohol intake Current drinker of alcohol (finding) [facility] Start: 12-21-2023 End: 01-05-2024 History of Social function [facility] Start: 01-05-2024 Tobacco Comment Been over 30 y ears since had a cigarette [facility] Start: 01-05-2024 Alcohol Comment may have a dri nk 2x per week [facility] Start: 1960 Sex Assigned At Not on file [facility] Tobacco smoking status NHIS Tobacco smoking consumption unknown [facility] Work Phone: Start: 1960 Sex Assigned At Male [facility] Start: 04-28-2023 Gender identity Identifies as male gender (finding) [facility] History of tobacco use Pipe Smoker [facility] End: 11-29-1989 History of tobacco use Cigar Smoker [facility] Start: 05-03-2023 Tobacco use and exposure Former smokeless tobacco user [facility] History of tobacco use Chews Tobacco [facility] Start: 05-03-2023 Tobacco Comment Quit 25+ years ago [facility] NEGATED: Highlighted rowStart: NINF History of tobacco use Passive smoker [facility] Medical Equipment Procedure Code Equipment Code [...] 11-30-2023 Functional Status N/A [facility] 11-11-2023 Functional Status N/A [facility] 09-24-2023 Functional Status N/A [facility] 07-12-2023 Functional Status N/A [facility] 05-05-2023 Functional Status N/A [facility] 02-18-2023 Functional Status N/A [facility] Clinical Notes 02-18-2023 to 12-15-2024 Izzy Munroe MD - 11/23/2024 8:45 [facility] Chung Contreras, rail washer - 10/27/2024 11:00 AM Armen Douglas RN - 10/27/2024 11:00 AM ESTPatient InstructionsPatient Instructions Note Date & Type Note Facility 12-15-2024 Note Patient Outreach (UR OLMN) ASHLEY LEDESMA ([id number]) 1960 M Date Time Provider Department 12/15/24 CHARLOTTE LINDSEY During your visit today, we recorded the following information about you: Allergies As of Date: 12/15/2024 (No Known Allergies) Date Reviewed: 12/15/2024 Reviewed by: Louie Bess OCCA - Fully Assessed Visit Diagnosis:Screening for genitourinary condition [Z13.89] Order(s):UA DIP, URINE (POC) [1348550] Order #: [id number] FUTURE Prescriptions as of 12/18/2024 - DITROPAN XL 5 mg 24 hr tablet Take 1 tablet by mouth once daily. - tamsulosin (FLOMAX) 0.4 mg Take 1 capsule by mouth once daily. 30 minutes after the same meal each day. - mirabegron (MYRBETRIQ) 50 mg Tb24 Take 50 mg by mouth once daily. - sildenafil (VIAGRA) 100 mg tablet Take 100 mg by mouth as needed. - lisinopril (ZESTRIL) 5 mg tablet Take 1 tablet by mouth once daily. - vibegron (GEMTESA) 75 mg tablet Take by mouth. - allopurinol (ZYLOPRIM) 300 mg tablet 1 tablet Orally Once a day for 90 days - tamsulosin (FLOMAX) 0.4 mg Take 1 capsule by mouth daily at bedtime. Problem List As Of Date 12/15/2024 Noted Resolved Ulcer of esophagus [K22.10] 05/05/2023 Diagnosed: 01/04/2024 Gout [M10.9] 01/04/2024 Diagnosed: 01/04/2024 Erectile dysfunction [N52.9] 09/24/2023 Diagnosed: 01/04/2024 Benign prostatic hyperplasia with urinary obstr*09/24/2023 Diagnosed: 01/04/2024 History of esophageal ulcer [Z87.19] 01/06/2024 Diagnosed: 01/06/2024 Sleep apnea [G47.30] 01/06/2024 Diagnosed: 01/06/2024 Renal mass [N28.89] 01/06/2024 Benign prostatic hyperplasia with lower urinary*12/15/2024 Screening for genitourinary condition [Z13.89] 12/15/2024 Impotence of organic origin [N52.9] 12/15/2024 History of renal cell cancer [Z85.528] 12/15/2024 Encounter Status:Closed by [employer], PRODUSER on 12/18/24 [facility] 11-23-2024 History of Present illness Narrative Assessment/Plan Cataract, OU: Observe for now without intervention. The patient was advised to contact us if any change or worsening of vision documented in this encounter [facility] 10-27-2024 Miscellaneous Notes Radiology Service Progress Note PATIENT NAME: Ashley Ledesma DATE OF SERVICE: October 27, 2024 TIME: 10:46 AM PATIENT IDENTITY VERIFICATION COMPLETED USING TWO [...] PATIENT PRESENTS WITH AN 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 ADMINISTRATION: No RADIOLOGY DEPARTMENT: MR; Exam(s) Completed: Body: Renal PERIPHERAL IV DATA: Site assessment: Clean,Dry and Intact, Site disposition Discontinued SIGNED BY: Chung Stevenson MRI Tech October 27, 2024 10:46 AM documented in this encounter [facility] 10-27-2024 Nurse Note Radiology Service Progress Note DATE OF SERVICE: October 27, 2024 TIME: 10:03 AM PATIENT WEIGHT: 190 LBS PATIENT IDENTITY VERIFICATION COMPLETED USING TWO [...] peripheral IV was started in the Right forearm with a Angio cath: 20 gauge. IV SITE APPEARANCE: Clean,Dry and Intact SIGNATURE: Armen Samaniego RN PATIENT NAME: Ashley Ledesma DATE: October 27, 2024 TIME: 10:03 AM [facility] 10-27-2024 Nurse Note Radiology Service Progress Note DATE OF SERVICE: October 27, 2024 TIME: 10:03 AM PATIENT WEIGHT: 190 LBS PATIENT IDENTITY VERIFICATION COMPLETED USING TWO [...] peripheral IV was started in the Right forearm with a Angio cath: 20 gauge. IV SITE APPEARANCE: Clean,Dry and Intact SIGNATURE: Armen Samaniego RN PATIENT NAME: Ashley Ledesma DATE: October 27, 2024 TIME: 10:03 AM documented in this encounter [facility] 10-27-2024 Progress note Formatting of t his note might be different from the original. Radiology Service Progress Note PATIENT NAME: Ashley Ledesma DATE OF SERVICE: October 27, 2024 TIME: 10:46 AM PATIENT IDENTITY VERIFICATION COMPLETED USING TWO [...] PATIENT PRESENTS WITH AN 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 ADMINISTRATION: No RADIOLOGY DEPARTMENT: MR; Exam(s) Completed: Body: Renal PERIPHERAL IV DATA: Site assessment: Clean,Dry and Intact, Site disposition Discontinued SIGNED BY: Chung Stevenson [employer] October 27, 2024 10:46 AM [facility] 10-27-2024 History of Present illness Narrative Radiology Service Progress Note PATIENT NAME: Ashley Ledesma DATE OF SERVICE: October 27, 2024 TIME: 9:35 AM PATIENT IDENTITY VERIFICATION COMPLETED USING TWO [...] PATIENT PRESENTS WITH AN 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 ADMINISTRATION: No RADIOLOGY DEPARTMENT: CT; Exam(s) Completed: Chest PERIPHERAL IV DATA: Not applicable SIGNED BY: RT Scott(Sneha) October 27, 2024 9:35 AM documented in this encounter [facility] 10-27-2024 Note HNO ID: [id number] Author: VENIEC KNOX RT(R) Service: ? Author Type: Technologist Type: Progress Notes Filed: 10/27/2024 09:35 Note Text: Radiology Service Progress Note PATIENT NAME: Ashley Ledesma DATE OF SERVICE: October 27, 2024 TIME: 9:35 AM PATIENT IDENTITY VERIFICATION COMPLETED USING TWO [...] PATIENT PRESENTS WITH AN 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 ADMINISTRATION: No RADIOLOGY DEPARTMENT: CT; Exam(s) Completed: Chest PERIPHERAL IV DATA: Not applicable SIGNED BY: RT Scott(R) October 27, 2024 9:35 AM [facility] 10-13-2024 Instructions Jayne Silveira MD - 10/13/2024 12:05 PM EST We will check blood count with your next blood draw. documented in this encounter [facility] 10-13-2024 Note HNO ID: [id number] Author: JAYNE SILVEIRA MD Service: ? Author Type: Physician Type: Progress Notes Filed: 10/27/2024 17:19 Note Text: Department of Kidney Medicine Medical Special[facility] SERVICE DATE: 10/13/2024 SERVICE TIME: 11:26 AM CHIEF COMPLAINT: CKD, solitary kidney HPI: Mr. Ledesma is a 64 year old male who presents with confirmed by cystatin C measurement after renal mass reduction (eGFRcr 47 and eGFRcys 57, combined 54). This is better than predicted by baseline creatinine. Home BP readings 115 - 130/60 - 80s Creatinine Date Value Ref Range Status 09/18/2024 1.70 (H) 0.73 - 1.22 mg/dL Final 06/16/2024 1.79 (H) 0.73 - 1.22 mg/dL Final 06/07/2024 1.53 (H) 0.73 - 1.22 mg/dL Final 03/24/2024 1.63 (H) 0.73 - 1.22 mg/dL Final SOCIAL HISTORY: Social History Tobacco Use Smoking status: Former Types: Cigarettes Passive exposure: Never Smokeless tobacco: Never Tobacco comments: Been over 30 years since had a cigarette Substance Use Topics Alcohol use: Yes Comment: may have a drink 2x per week Drug use: Never MEDICATIONS: mirabegron (MYRBETRIQ) 50 mg Tb24 Take 50 mg by mouth once daily. sildenafil (VIAGRA) 100 mg tablet Take 100 mg by mouth as needed. lisinopril (ZESTRIL) 5 mg tablet Take 1 tablet by mouth once daily. allopurinol (ZYLOPRIM) 300 mg tablet 1 tablet Orally Once a day for 90 days tamsulosin (FLOMAX) 0.4 mg Take 1 capsule by mouth daily at bedtime. vibegron (GEMTESA) 75 mg tablet Take by mouth. ALLERGIES: ALLERGIES No Known Allergies PHYSICAL EXAM: BP 157/93 (BP Site: Left Arm, BP Position: Sitting, BP Cuff Size: Regular Adult) Pulse 64 Temp 36.5 ?C (97.7 ?F) (Oral) Ht 177.8 cm (5' 10 ) Wt 86.5 kg (190 lb 11.2 oz) BMI 27.36 kg/m? BP - standardized method Pulse 1 BP #1: 153/94 Pulse #1: 64 beats/min 2 BP #2 : 158/94 Pulse #2 : 64 beats/min 3 BP #3 : 162/91 Pulse #3 : 64 beats/min Average Average BP: 157/93 Average Pulse: 64 beats/min BP cuff location BP cuff location: Left upper arm BP cuff size BP cuff size: regular adult Constitutional: No acute distress, Responsive, Normal habitus, [...] to palpation bilaterally. Normal to percussion bilaterally. Musculoskeletal: No clubbing or cyanosis of digits., Normocephalic., and No muscle weakness, joint tenderness, or joint effusions. Psychiatric: Alert and oriented x self, place, time, and setting Normal mood/affect DATA: Diagnostic tests reviewed for today's visit: Blood work, imaging studies, and office notes were reviewed in epic Latest Reference Range AND Units 09/18/24 14:43 Sodium 136 - 144 mmol/L 145 (H) Potassium 3.7 - 5.1 mmol/L 4.3 Chloride 98 - 107 mmol/L 108 (H) CO2 22 - 30 mmol/L 30 BUN 9 - 24 mg/dL 28 (H) Creatinine 0.73 - 1.22 mg/dL 1.70 (H) Glucose 74 - 99 mg/dL 96 Calcium 8.5 - 10.2 mg/dL 9.7 Phosphorus 2.7 - 4.8 mg/dL 3.1 Albumin 3.9 - 4.9 g/dL 4.5 Anion Gap 8 - 15 mmol/L 7 (L) eGFR >=60 mL/min/1.73m? 44 (L) (H): Data is abnormally high (L): Data is abnormally low ASSESSMENT: 64 year old male who presents with AVANI, esophageal ulcer, BPH, s/p left nephrectomy for RCC with baseline pre-nephx creatinine 1.3 and symmetrical renal function with evidence of stable CKD stage 3a -b. Renal function remains stable. Metabolic status and volume status are appropriate. He has [facility] with well-documented home BP in optimal range. PLAN: - urine protein assessment with PCR at next visit. - continue current antihypertensive regimen including lisinopril - assess uric acid at next visit for gout management Parts of A/P may have been copied from prior entry and amended as needed. It reflects full evaluations and pathophysiology processes involved. I spent a total of 30 minutes on the date of the service which included preparing to see the patient, [id number] patient care, completing clinical documentation, obtaining and/or reviewing separately obtained history, performing a medically appropriate examination, counseling and educating the patient/family/caregiver, and ordering medications, tests, or procedures. Visit CPLX Inherent EANDM Associated with [facility] ([id number]) SIGNATURE: Jayne Silveira MD PATIENT NAME: Ashley Ledesma DATE: October 13, 2024 TIME: 11:26 AM CC: PRIMARY CARE PHYSICIAN: Adan Lamar MD [facility] 10-13-2024 History of Present illness Narrative Department of [facility] SERVICE DATE: 10/13/2024 SERVICE TIME: 11:26 AM CHIEF COMPLAINT: CKD, solitary kidney HPI: Mr. Ledesma is a 64 year old male who presents with confirmed by cystatin C measurement after renal mass reduction (eGFRcr 47 and eGFRcys 57, combined 54). This is better than predicted by baseline creatinine. Home BP readings 115 - 130/60 - 80s Creatinine Date Value Ref Range Status 09/18/2024 1.70 (H) 0.73 - 1.22 mg/dL Final 06/16/2024 1.79 (H) 0.73 - 1.22 mg/dL Final 06/07/2024 1.53 (H) 0.73 - 1.22 mg/dL Final 03/24/2024 1.63 (H) 0.73 - 1.22 mg/dL Final SOCIAL HISTORY: Social History Tobacco Use Smoking status: Former Types: Cigarettes Passive exposure: Never Smokeless tobacco: Never Tobacco comments: Been over 30 years since had a cigarette Substance Use Topics Alcohol use: Yes Comment: may have a drink 2x per week Drug use: Never MEDICATIONS: mirabegron (MYRBETRIQ) 50 mg Tb24 Take 50 mg by mouth once daily. sildenafil (VIAGRA) 100 mg tablet Take 100 mg by mouth as needed. lisinopril (ZESTRIL) 5 mg tablet Take 1 tablet by mouth once daily. allopurinol (ZYLOPRIM) 300 mg tablet 1 tablet Orally Once a day for 90 days tamsulosin (FLOMAX) 0.4 mg Take 1 capsule by mouth daily at bedtime. vibegron (GEMTESA) 75 mg tablet Take by mouth. ALLERGIES: ALLERGIES No Known Allergies PHYSICAL EXAM: BP 157/93 (BP Site: Left Arm, BP Position: Sitting, BP Cuff Size: Regular Adult) Pulse 64 Temp 36.5 C (97.7 F) (Oral) Ht 177.8 cm (5' 10 ) Wt 86.5 kg (190 lb 11.2 oz) BMI 27.36 kg/m BP - standardized method Pulse 1 BP #1: 153/94 Pulse #1: 64 beats/min 2 BP #2 : 158/94 Pulse #2 : 64 beats/min 3 BP #3 : 162/91 Pulse #3 : 64 beats/min Average Average BP: 157/93 Average Pulse: 64 beats/min BP cuff location BP cuff location: Left upper arm BP cuff size BP cuff size: regular adult Constitutional: No acute distress, Responsive, Normal habitus, [...] to palpation bilaterally. Normal to percussion bilaterally. Musculoskeletal: No clubbing or cyanosis of digits., Normocephalic., and No muscle weakness, joint tenderness, or joint effusions. Psychiatric: Alert and oriented x self, place, time, and setting Normal mood/affect DATA: Diagnostic tests reviewed for today's visit: Blood work, imaging studies, and office notes were reviewed in [facility] Latest Reference Range & Units 09/18/24 14:43 Sodium 136 - 144 mmol/L 145 (H) Potassium 3.7 - 5.1 mmol/L 4.3 Chloride 98 - 107 mmol/L 108 (H) CO2 22 - 30 mmol/L 30 BUN 9 - 24 mg/dL 28 (H) Creatinine 0.73 - 1.22 mg/dL 1.70 (H) Glucose 74 - 99 mg/dL 96 Calcium 8.5 - 10.2 mg/dL 9.7 Phosphorus 2.7 - 4.8 mg/dL 3.1 Albumin 3.9 - 4.9 g/dL 4.5 Anion Gap 8 - 15 mmol/L 7 (L) eGFR >=60 mL/min/1.73m 44 (L) (H): Data is abnormally high (L): Data is abnormally low ASSESSMENT: 64 year old male who presents with AVANI, esophageal ulcer, BPH, s/p left nephrectomy for RCC with baseline pre-nephx creatinine 1.3 and symmetrical renal function with evidence of stable CKD stage 3a -b. Renal function remains stable. Metabolic status and volume status are appropriate. He has [facility] with well-documented home BP in optimal range. PLAN: - urine protein assessment with PCR at next visit. - continue current antihypertensive regimen including lisinopril - assess uric acid at next visit for gout management Parts of A/P may have been copied from prior entry and amended as needed. It reflects full evaluations and pathophysiology processes involved. I spent a total of 30 minutes on the date of the service which included preparing to see the patient, [id number] patient care, completing clinical documentation, obtaining and/or reviewing separately obtained history, performing a medically appropriate examination, counseling and educating the patient/family/caregiver, and ordering medications, tests, or procedures. Visit CPLX Inherent E&M Associated with [facility] ([id number]) SIGNATURE: Jayne Silveira MD PATIENT NAME: Ashley Ledesma DATE: October 13, 2024 TIME: 11:26 AM CC: PRIMARY CARE PHYSICIAN: Adan Lamar MD documented in this encounter [facility] 10-13-2024 Note Patient Outreach (KI DMMN) ASHLEY LEDESMA ([id number]) 1960 M Date Time Provider Department 10/13/24 JAYNE SILVEIRA During your visit today, we recorded the following information about you: Allergies As of Date: 10/13/2024 (No Known Allergies) Date Reviewed: 10/13/2024 Reviewed by: Mitchel Blanchard MA - Fully Assessed Visit Diagnosis:Screening for genitourinary condition [Z13.89] Order(s):UA DIP, URINE (POC) [[id number]] Order #: [id number] Prescriptions as of 10/16/2024 - mirabegron (MYRBETRIQ) 50 mg Tb24 Take 50 mg by mouth once daily. - sildenafil (VIAGRA) 100 mg tablet Take 100 mg by mouth as needed. - lisinopril (ZESTRIL) 5 mg tablet Take 1 tablet by mouth once daily. - vibegron (GEMTESA) 75 mg tablet Take by mouth. - allopurinol (ZYLOPRIM) 300 mg tablet 1 tablet Orally Once a day for 90 days - tamsulosin (FLOMAX) 0.4 mg Take 1 capsule by mouth daily at bedtime. Problem List As Of Date 10/13/2024 Noted Resolved Ulcer of esophagus [K22.10] 05/05/2023 Diagnosed: 01/04/2024 Gout [M10.9] 01/04/2024 Diagnosed: 01/04/2024 Erectile dysfunction [N52.9] 09/24/2023 Diagnosed: 01/04/2024 Benign prostatic hyperplasia with urinary obstr*09/24/2023 Diagnosed: 01/04/2024 History of esophageal ulcer [Z87.19] 01/06/2024 Diagnosed: 01/06/2024 Sleep apnea [G47.30] 01/06/2024 Diagnosed: 01/06/2024 Renal mass [N28.89] 01/06/2024 Encounter Status:Closed by [employer], PRODUSER on 10/16/24 [facility] 09-05-2024 History of Present illness Narrative CHIEF COMPLAINT: elevated PSA HPI Ashley Ledesma is a 64 year old male with history of left renal mass discovered incidentally upon gross hematuria work up s/p left nephrectomy 01/06/24, BPH s/p TURP (~10 years ago per patient), and bladder lesion (path benign) who presents for elevated PSA. No known family history of prostate cancer. Has been previously monitoring PSA with Dr. Jara and wishes to transfer care to [facility]. History of prostate biopsy 08/22/[address] Jara- monisha revealed benign prostatic tissue. PSA prior to biopsy was 2.6 Most recent PSA 4.27 ng/mL (06/27/24). MRI PROSTATE 08/24/2024 IMPRESSION: No MRI evidence of clinically significant prostate cancer. FINDINGS: Prostate Dimensions: 4.8 x 3.5 x 4.2 cm. Prostate Volume: 36 mL Other urologic history notable for left renal mass s/p left robotic nephrectomy on 01/06/[address] Lindsey. Path: RCC, chromophobe subtype, pT3a. Scheduled for surveillance imaging in 09/2024. Interval Hx: Overall, doing well. Hx of urinary frequency, urgency, and urge incontinence which he states are well managed on Tamsulosin and Myrbetriq. Takes Sildenafil PRN for ED. LABS 06/27/2024 PSA 4.27 ng/mL 07/08/2023 PSA 3.42 ng/mL 06/11/2022 PSA 3.54 ng/mL 07/10/2021 PSA 3.52 ng/mL 08/31/2020 PSA 4.4 ng/mL 07/28/2019 PSA 2.6 ng/mL 03/11/2018 PSA 1.9 ng/mL 12/25/2016 PSA 1.4 ng/mL Creatinine Date Value Ref Range Status 06/16/2024 1.79 (H) 0.73 - 1.22 mg/dL Final 06/07/2024 1.53 (H) 0.73 - 1.22 mg/dL Final 03/24/2024 1.63 (H) 0.73 - 1.22 mg/dL Final 01/09/2024 1.70 (H) 0.73 - 1.22 mg/dL Final IMAGING MRI ABDOMEN WO/W IVCON 04/25/2024 IMPRESSION: Status [...] renal cell carcinoma. 2. No thoracic lymphadenopathy. REVIEW OF SYSTEMS GENERAL:No weight loss, malaise or fevers., SEE HPI GENITOURINARY: See HPI The remainder of the ROS was negative. HISTORIES No past medical history on file. No past surgical history on file. No family history on file. SOCIAL HISTORY Social History Tobacco Use Smoking status: Former [...] No current facility-administered medications for this visit. PHYSICAL EXAMINATION General appearance: Well appearing, alert, in no acute distress, and well-hydrated, well nourished Lungs: no wheezing or rhonchi Abdomen: Abdomen soft, non-tender. Bowel sounds normal. No masses, organomegaly Genitourinary: SUJATA: non-tender; no palpable nodules; prostate gland enlarged, smooth, and symmetric The sensitive examination was discussed with the Patient or Patient's Authorized Field Mechanic/Site Lead. As applicable, any other physician, advance practice provider, medical student, or other health professional student that will be observing or involved in the sensitive examination for educational or training purposes was discussed with the Patient or Authorized Field Mechanic/Site Lead. The Patient or Authorized Field Mechanic/Site Lead has agreed to proceed with the sensitive examination. (Sensitive examination includes inspection and/or palpation of the breasts, pelvis, prostate and anorectal regions) IMPRESSION / PLAN (R97.20) Elevated prostate specific antigen (PSA) (primary encounter diagnosis) Plan: -Patient will have outside MRI prostate images sent to our office- will order 2nd read when we receive outside images -Check IsoPSA in 3 months with follow up virtual visit to discuss IsoPSA and 2nd read results (N40.1) Benign prostatic hyperplasia with lower urinary tract symptoms, symptom details unspecified Plan: continue Tamsulosin and Myrbetriq as prescribed (N52.9) Impotence of organic origin Plan: continue PRN Sildenafil as prescribed (Z85.528) History of renal cell cancer Plan: Proceed with surveillance imaging as scheduled in 09/[address] Lindsey. Jada Santo APRN.CNP documented in this encounter [facility] 09-05-2024 Note HNO ID: [id number] Author: JADA SANTO APRN.CNP Service: ? Author Type: Nurse Practitioner Type: Progress Notes Filed: 09/06/2024 07:25 Note Text: CHIEF COMPLAINT: elevated PSA HPI Ashley Ledesma is a 64 year old male with history of left renal mass discovered incidentally upon gross hematuria work up s/p left nephrectomy 01/06/24, BPH s/p TURP (~10 years ago per patient), and bladder lesion (path benign) who presents for elevated PSA. No known family history of prostate cancer. Has been previously monitoring PSA with Dr. Jara and wishes to transfer care to [facility]. History of prostate biopsy 08/22/[address] Jara- monisha revealed benign prostatic tissue. PSA prior to biopsy was 2.6 Most recent PSA 4.27 ng/mL (06/27/24). MRI PROSTATE 08/24/2024 IMPRESSION: No MRI evidence of clinically significant prostate cancer. FINDINGS: Prostate Dimensions: 4.8 x 3.5 x 4.2 cm. Prostate Volume: 36 mL Other urologic history notable for left renal mass s/p left robotic nephrectomy on 01/06/[address] Lindsey. Path: RCC, chromophobe subtype, pT3a. Scheduled for surveillance imaging in 09/2024. Interval Hx: Overall, doing well. Hx of urinary frequency, urgency, and urge incontinence which he states are well managed on Tamsulosin and Myrbetriq. Takes Sildenafil PRN for ED. LABS 06/27/2024 PSA 4.27 ng/mL 07/08/2023 PSA 3.42 ng/mL 06/11/2022 PSA 3.54 ng/mL 07/10/2021 PSA 3.52 ng/mL 08/31/2020 PSA 4.4 ng/mL 07/28/2019 PSA 2.6 ng/mL 03/11/2018 PSA 1.9 ng/mL 12/25/2016 PSA 1.4 ng/mL Creatinine Date Value Ref Range Status 06/16/2024 1.79 (H) 0.73 - 1.22 mg/dL Final 06/07/2024 1.53 (H) 0.73 - 1.22 mg/dL Final 03/24/2024 1.63 (H) 0.73 - 1.22 mg/dL Final 01/09/2024 1.70 (H) 0.73 - 1.22 mg/dL Final IMAGING MRI ABDOMEN WO/W IVCON 04/25/2024 IMPRESSION: Status [...] renal cell carcinoma. 2. No thoracic lymphadenopathy. REVIEW OF SYSTEMS GENERAL:No weight loss, malaise or fevers., SEE HPI GENITOURINARY: See HPI The remainder of the ROS was negative. HISTORIES No past medical history on file. No past surgical history on file. No family history on file. SOCIAL HISTORY Social History Tobacco Use Smoking status: Former [...] No current facility-administered medications for this visit. PHYSICAL EXAMINATION General appearance: Well appearing, alert, in no acute distress, and well-hydrated, well nourished Lungs: no wheezing or rhonchi Abdomen: Abdomen soft, non-tender. Bowel sounds normal. No masses, organomegaly Genitourinary: SUJATA: non-tender; no palpable nodules; prostate gland enlarged, smooth, and symmetric The sensitive examination was discussed with the Patient or Patient's Authorized Field Mechanic/Site Lead. As applicable, any other physician, advance practice provider, medical student, or other health professional student that will be observing or involved in the sensitive examination for educational or training purposes was discussed with the Patient or Authorized Field Mechanic/Site Lead. The Patient or Authorized Field Mechanic/Site Lead has agreed to proceed with the sensitive examination. (Sensitive examination includes inspection and/or palpation of the breasts, pelvis, prostate and anorectal regions) IMPRESSION / PLAN (R97.20) Elevated prostate specific antigen (PSA) (primary encounter diagnosis) Plan: -Patient will have outside MRI prostate images sent to our office- will order 2nd read when we receive outside images -Check IsoPSA in 3 months with follow up virtual visit to discuss IsoPSA and 2nd read results (N40.1) Benign prostatic hyperplasia with lower urinary tract symptoms, symptom details unspecified Plan: continue Tamsulosin and Myrbetriq as prescribed (N52.9) Impotence of organic origin Plan: continue PRN Sildenafil as prescribed (Z85.528) History of renal cell cancer Plan: Proceed with surveillance imaging as scheduled in 09/[address] Lindsey. Jada Santo APRN.HAND SPLITTER [facility] 09-05-2024 Note Patient Outreach (UR OLMN) ASHLEY LEDESMA ([id number]) 1960 Date Time Provider Department 09/05/24 CHARLOTTE LINDSEY During your visit today, we recorded the following information about you: Allergies As of Date: 09/05/2024 (No Known Allergies) Date Reviewed: 09/05/2024 Reviewed by: Jada Santo APRN.HAND SPLITTER - Fully Assessed Visit Diagnosis:Screening for genitourinary condition [Z13.89] Order(s):URINALYSIS, REFLEX MICROSCOPIC [FOC7298] Order #: [id number]. #:[id number] Prescriptions as of 09/08/2024 - mirabegron (MYRBETRIQ) 50 mg Tb24 Take 50 mg by mouth once daily. - sildenafil (VIAGRA) 100 mg tablet Take 100 mg by mouth as needed. - lisinopril (ZESTRIL) 5 mg tablet Take 1 tablet by mouth once daily. - vibegron (GEMTESA) 75 mg tablet Take by mouth. - allopurinol (ZYLOPRIM) 300 mg tablet 1 tablet Orally Once a day for 90 days - tamsulosin (FLOMAX) 0.4 mg Take 1 capsule by mouth daily at bedtime. Problem List As Of Date 09/05/2024 Noted Resolved Ulcer of esophagus [K22.10] 05/05/2023 Diagnosed: 01/04/2024 Gout [M10.9] 01/04/2024 Diagnosed: 01/04/2024 Erectile dysfunction [N52.9] 09/24/2023 Diagnosed: 01/04/2024 Benign prostatic hyperplasia with urinary obstr*09/24/2023 Diagnosed: 01/04/2024 History of esophageal ulcer [Z87.19] 01/06/2024 Diagnosed: 01/06/2024 Sleep apnea [G47.30] 01/06/2024 Diagnosed: 01/06/2024 Renal mass [N28.89] 01/06/2024 Encounter Status:Closed by [employer] on 09/08/24 [facility] 08-09-2024 History of Present illness Narrative VIRTUAL VISIT PROGRESS NOTE This is a virtual visit using F[employer] Zoom Video Visit. It required patient-provider interaction for the medical decision making as documented below. I have communicated my name and active licensure. The patient's identity and physical location were verified at the time of this visit. Either the patient or their legal customer sales representative has been informed of the risks [...] included preparing to see the patient and [id number] patient care Answers submitted by the patient [...] with oil: No documented in this encounter [facility] 08-09-2024 Note HNO ID: [id number] Author: GATO BANDA MD Service: ? Author Type: Physician Type: Progress Notes Filed: 08/09/2024 10:20 Note Text: VIRTUAL VISIT PROGRESS NOTE This is a virtual visit using Spherixom Video Visit. It required patient-provider interaction for the medical decision making as documented below. I have communicated my name and active licensure. The patient's identity and physical location were verified at the time of this visit. Either the patient or their legal customer sales representative has been informed of the risks [...] included preparing to see the patient and [id number] patient care Answers submitted by the patient [...] or see stool floating with oil: No [facility] 06-07-2024 Instructions Jayne Silveira MD - 06/07/2024 12:29 PM EDT Today, we will measure kidney function and urine protein. Please restart lisinopril 5 mg on June 10 unless I call you and tell you otherwise. One week after restarting lisinopril, go to lab for kidney function re-check on medication. I will refill your prescription for 90 days after I confirm your kidney function is stable. documented in this encounter [facility] 06-07-2024 Note HNO ID: [id number] Author: JAYNE SILVEIRA MD Service: ? Author Type: Physician Type: Progress Notes Filed: 06/13/2024 20:40 Note Text: Department [facility] SERVICE DATE: 06/07/2024 SERVICE TIME: 11:55 AM [...] Color Yellow Yellow Clarity Clear Clear Specific [place], Ur 1.005 - 1.030 1.008 pH, Urine [...] - ask AA (more content not included)... [facility] 06-07-2024 History of Present illness Narrative Department of [facility] SERVICE DATE: 06/07/2024 SERVICE TIME: 11:55 AM [...] studies, and office notes were reviewed in [facility] Latest Reference Range & Units 06/07/24 [...] Color Yellow Yellow Clarity Clear Clear Specific [place], Ur 1.005 - 1.030 1.008 pH, Urine [...] which included preparing to see the patient, [id number] patient care, completing clinical documentation, obtaining and/or reviewing separately obtained history, performing a medically appropriate examination, counseling and educating the patient/family/caregiver, and ordering medications, tests, or procedures. Visit CPLX Inherent E&M Associated with [facility] ([id number]) SIGNATURE: Jayne Silveira MD PATIENT NAME: Ashley Ledesma DATE: June 07, 2024 TIME: 11:55 AM CC: PRIMARY CARE PHYSICIAN: Adan Lamar MD documented in this encounter [facility] 06-07-2024 Note Patient Outreach (KI DMMN) ASHLEY LEDESMA ([id number]) 1960 M Date Time Provider Department 7/10/24 KENJAYNE HANDFILEMON During your visit today, we recorded the following information about you: Allergies As of Date: 06/07/2024 (No Known Allergies) Date Reviewed: 06/07/2024 Reviewed by: Julia Senior OCCA - Fully Assessed Visit Diagnoses:Screening for genitourinary condition [Z13.89] Stage 3b chronic kidney disease (HCC) [N18.32] H/O left nephrectomy [Z90.5] Order(s):URINALYSIS, REFLEX MICROSCOPIC [[id number]] Order #: [id number]. #:[id number] PROTEIN / CREATININE RATIO [SQPRATIO] Order #: [id number]. #:[id number] Prescriptions as of 06/12/2024 - lisinopril (ZESTRIL) [...] Encounter Status:Closed by NAE DUNBAR on 06/12/24 [facility] 04-26-2024 History of Present illness Narrative VIRTUAL VISIT PROGRESS NOTE This is a virtual visit using Audio Only Visit. It required patient-provider interaction for the medical decision making as documented below. I have communicated my name and active licensure. The patient's identity and physical location were verified at the time of this visit. Either the patient or their legal customer sales representative has been informed of the risks [...] which included preparing to see the patient, [id number] patient care, completing clinical documentation, counseling and educating the patient/family/caregiver, and ordering medications, tests, or procedures Encounter converted to a telephone visit (audio only) due to insurmountable technological challenges. Jada Santo APRN.CNP documented in this encounter [facility] 04-26-2024 Note HNO ID: [id number] Author: JADA SANTO APRN.CNP Service: ? Author [...] visit. Either the patient or their legal customer sales representative has been informed of the risks [...] 6 months wi (more content not included)... [facility] 04-25-2024 Miscellaneous Notes Radiology Service Progress [...] PATIENT PRESENTS WITH AN 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 EXAM: MRI - CONTRAST TYPE: GROUP II PERIPHERAL IV DATA: Ambulatory: A peripheral IV was started in the Right antecubital site with a Angio cath: 24 gauge. RADIOLOGY DEPARTMENT: MR; Exam(s) Completed: Body: Renal SIGNATURE: Chung Rider MRI Tech PATIENT NAME: Ashley Ledesma DATE: April 25, 2024 TIME: 8:39 AM documented in this encounter [facility] 04-25-2024 Progress note Formatting of t his [...] PATIENT PRESENTS WITH AN 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 EXAM: MRI - CONTRAST TYPE: GROUP II PERIPHERAL IV DATA: Ambulatory: A peripheral IV was started in the Right antecubital site with a Angio cath: 24 gauge. RADIOLOGY DEPARTMENT: MR; Exam(s) Completed: Body: Renal SIGNATURE: Chung Rider MRI Tech PATIENT NAME: Ashley Ledesma DATE: April 25, 2024 TIME: 8:39 AM [facility] 04-25-2024 History of Present illness Narrative Radiology [...] PATIENT PRESENTS WITH AN 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 ADMINISTRATION: No RADIOLOGY DEPARTMENT: CT; Exam(s) Completed: Chest PERIPHERAL IV DATA: Not applicable SIGNED BY: RT Joe(R) April 25, 2024 7:54 AM documented in this encounter [facility] 04-25-2024 Note HNO ID: [id number] Author: NISHANT DE LA ROSA RT(R) Service: Radiology Author Type: Package Delivery Room Service Runner Type: Progress Notes Filed: 04/25/2024 07:54 Note [...] PATIENT PRESENTS WITH AN 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 ADMINISTRATION: No RADIOLOGY DEPARTMENT: CT; Exam(s) Completed: Chest PERIPHERAL IV DATA: Not applicable SIGNED BY: RT Joe(R) April 25, 2024 7:54 AM [facility] 04-11-2024 Note HNO ID: [id number] Author: JAYNE SILVEIRA MD Service: ? Author Type: Physician Type: Progress Notes Filed: 04/11/2024 13:04 Note Text: Have decided to reduce lisinopril to 5 mg daily due to better BP at home of 120-130/70-80s with consistently high morning readings of 150s [facility] 04-11-2024 History of Present illness Narrative Have decided to reduce lisinopril to 5 mg daily due to better BP at home of 120-130/70-80s with consistently high morning readings of 150s documented in this encounter [facility] 03-24-2024 Instructions Jayne Silveira MD - 03/24/2024 [...] and low sodium. documented in this encounter [facility] 03-24-2024 History of Present illness Narrative [facility] SERVICE DATE: 03/23/2024 [...] 1. Will obtain previous creatinine levels from [facility] to better ascertain baseline function. 2. [...] which included preparing to see the patient, [id number] patient care, completing clinical documentation, obtaining and/or reviewing separately obtained history, performing a medically appropriate examination, counseling and educating the patient/family/caregiver, and ordering medications, tests, or procedures. SIGNATURE: Jayne Silveira MD PATIENT NAME: Ashley Ledesma DATE: March 23, 2024 TIME: 3:59 PM OFFICE NUMBER: [phone] CC: PRIMARY CARE PHYSICIAN: Adan Lamar MD documented in this encounter [facility] 03-24-2024 Note HNO ID: [id number] Author: JAYNE SILVEIRA MD Service: ? Author Type: Physician Type: Progress Notes Filed: 04/11/2024 13:05 Note Text: [facility] SERVICE DATE: 03/23/2024 [...] of stable C (more content not included)... [facility] 03-24-2024 Note Patient Outreach (SUKHDEV DMMN) ASHLEY LEDESMA ([id number]) 1960 M Date Time Provider Department 03/24/24 JAYNE SILVEIRA During your visit today, we recorded the following information about you: Allergies As of Date: 03/24/2024 (No Known Allergies) Date Reviewed: 01/25/2024 Reviewed by: Jada Santo APRN.HAND SPLITTER - Fully Assessed Visit Diagnosis:Screening for genitourinary condition [Z13.89] Order(s):URINALYSIS, REFLEX MICROSCOPIC [[id number]] Order #: [id number]. #:[id number] Prescriptions as of 03/27/2024 - vibegron (GEMTESA) [...] Renal mass [N28.89] 01/06/2024 Encounter Status:Closed by KATHY DUNBARUSER on 03/27/24 [facility] 01-25-2024 History of Present illness Narrative VIRTUAL VISIT PROGRESS NOTE This is a virtual visit using Favim Zoom Video Visit. It required patient-provider interaction for the medical decision making as documented below. I have communicated my name and active licensure. The patient's identity and physical location were verified at the time of this visit. Either the patient or their legal customer sales representative has been informed of the risks [...] which included preparing to see the patient, xuxb-zl-ydwg patient care, completing clinical documentation, counseling and educating the patient/family/caregiver, and ordering medications, tests, or procedures Jada Santo APRN.CNP documented in this encounter [facility] 01-25-2024 Note HNO ID: [id number] Author: JADA SANTO APRN.CNP Service: ? Author Type: Nurse Practitioner Type: Progress Notes Filed: 01/25/2024 14:27 Note Text: VIRTUAL VISIT PROGRESS NOTE This is a virtual visit using Spherixom Video Visit. It required patient-provider interaction for the medical decision making as documented below. I have communicated my name and active licensure. The patient's identity and physical location were verified at the time of this visit. Either the patient or their legal customer sales representative has been informed of the risks [...] which included preparing to see the patient, hewk-sk-tnmn patient care, c (more content not included)... [facility] 01-14-2024 Miscellaneous Notes PATIENT INFORMATION Record ID: [id number] [facility] [place]: [facility] Attending: Charlotte Lindsey Center: Urology INSTRUCTIONS SN to remind patient of appointment date, time, location All Clear All Clear SURVEY INFORMATION Medical/Nurse Site Inspector: Chon Avila 1. Your discharge instructions are [...] relation to symptoms. documented in this encounter [facility] 01-11-2024 Miscellaneous Notes Returned call to Mr. [...] RN, BSN Triage Nurse Department of Urology [facility] documented in this encounter [facility] 01-09-2024 Note HNO ID: [id number] Author: JULISA UGALDE MD Service: Urology Author [...] pathology report is indeterminate Other, please specify [facility] 01-09-2024 Note HNO ID: [id number] Author: JULISA UGALDE MD Service: Urology Author Type: Resident Type: Progress Notes Filed: 01/09/2024 08:15 Note Text: [facility] UROLOGY PROGRESS NOTE Name: Ashley Ledesma Bed: Main - Periop OR/Main - * Date: 01/09/2024 After Hours [facility] Urology Service Pager: [phone] ASSESSMENT Ashley Ledesma is a 63 year [...] physician Dr César Ugalde MD Urology PGY3 [facility] [place] Personal pager: [phone] On weekends and after 5PM, please page [phone] Active Problems BPH, POA- s/p TURP 2014, [...] 1.50* GLUC 130* 132* 151* Imaging Reviewed [facility] 01-08-2024 Note HNO ID: [id number] Author: JULISA UGALDE MD Service: Urology Author Type: Resident Type: Progress Notes Filed: 01/08/2024 10:24 Note Text: [facility] UROLOGY PROGRESS NOTE Name: Ashley Ledesma Bed: Main - Periop OR/Main - * Date: 01/08/2024 After Hours [facility] Urology Service Pager: [phone] ASSESSMENT Ashley Ledesma is a 63 year [...] physician Dr César Ugalde MD Urology PGY3 [facility] Personal pager: [phone] On weekends and after 5PM, please page [phone] Active Problems BPH, POA- s/p TURP 2014, [...] 1.66* 1.50* GLUC 132* 151* Imaging Reviewed [facility] 01-07-2024 Note HNO ID: [id number] Author: RAQUEL ROBERTSON MD Service: Urology Author Type: Resident Type: Progress Notes Filed: 01/07/2024 11:16 Note Text: [facility] UROLOGY PROGRESS NOTE Name: Ashley Ledesma Bed: Main - Periop OR/Main - * Date: 01/07/2024 After Hours [facility] Urology Service Pager: [phone] ASSESSMENT Ashley Ledesma is a 63 year [...] physician MD Raquel Bryant MD Urology PGY2 [facility] For weekend or after hours issues [place] [phone] Active Problems BPH, POA- s/p TURP 2014, [...] 1.66* 1.50* GLUC 132* 151* Imaging Reviewed [facility] 01-06-2024 Note HNO ID: [id number] Author: CORNELIA BAÑUELOS SRNA Service: ? Author [...] January 06, 2024 TIME: 3:11 PM CSN: [id number] [facility] 01-06-2024 Note HNO ID: [id number] Author: CORNELIA BAÑUELOS SRNA Service: ? Author Type: Student Type: Anesthesia Procedure Notes Filed: 01/06/2024 15:11 Note Text: ANESTHESIOLOGY PROCEDURE NOTE Airway General Information Procedure Start Time/Medication Administration: 01/06/2024 2:36 PM Patient location during procedure: OR Timeout Performed Pre-procedure: timeout performed Consent Obtained: Yes Patient identity confirmed: arm band, care steam tender and patient Staffing SRNA: Cornelia Bañuelos SRNA [...] January 06, 2024 TIME: 3:10 PM CSN: [id number] [facility] 01-06-2024 Note HNO ID: [id number] Author: KISHOR ORDONEZ MD Service: Urology Author Type: Resident Type: Progress Notes Filed: 01/07/2024 00:26 Note Text: [facility] UROLOGY PROGRESS NOTE Name: Ashley Ledesma Bed: Main - Periop OR/Main - * Date: 01/06/2024 After Hours [facility] Urology Service Pager: [phone] ASSESSMENT Ashley Ledesma is a 63 year [...] physician MD Raquel Bryant MD Urology PGY2 [facility] For weekend or after hours issues [place] [phone] Active Problems BPH, POA- s/p TURP 2014, [...] output data in the 24 hours ending 02/08/24 1232 Physical Exam General: Well-appearing, no acute distress Abdomen: Soft Wound: Incision clean, dry, and intact : Zuniga catheter present with CYU Imaging Reviewed [facility] 01-05-2024 Note HNO ID: [id number] Author: ?, ?, ? Service: Radiology Author [...] PATIENT PRESENTS WITH AN 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 ADMINISTRATION: No RADIOLOGY DEPARTMENT: CT; Exam(s) Completed: Chest PERIPHERAL IV DATA: Not applicable SIGNED BY: Carl Schultz January 05, 2024 2:52 PM [facility] 01-05-2024 History of Present illness Narrative [...] PATIENT PRESENTS WITH AN 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 ADMINISTRATION: No CREATININE: Creatinine Date Value Ref Range [...] safety can be found using this link: [email or web address] [email or web address]-%20Diagnostic%20Nucl ear%20Medicine%[email or web address].pdf SIGNATURE: EUGENE Story) PATIENT NAME: Ashley Ledesma DATE: January 05, 2024 TIME: 12:59 PM PAGER/CONTACT #: documented in this encounter [facility] 01-05-2024 Note HNO ID: [id number] Author: LILIA CURRY RT (R) Service: Nuclear [...] PATIENT PRESENTS WITH AN 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 ADMINISTRATION: No CREATININE: Creatinine Date Value Ref Range [...] safety can be found using this link: [email or web address] [email or web address]%[email or web address] rotection%20-% 20Diagnostic%20Nuclear%20Medicine %20Procedures.pdf SIGNATURE: RT Porsha(R) PATIENT NAME: Ashley Ledesma DATE: January 05, 2024 TIME: 12:59 PM PAGER/CONTACT #: [facility] 01-05-2024 Note HNO ID: [id number] Author: ANAI LEMA MD Service: ? Author Type: Anesthesiologist Type: Progress Notes Filed: 01/05/2024 12:40 Note Text: Attending Note I evaluated the patient and personally participated in the julien components. I agree with the resident's findings and plan as documented and have discussed the case and management of the patient's care with the resident. Signature: Anai Lema MD Date: 01/05/2024 Time: 12:40 PM [facility] 01-05-2024 History of Present illness Narrative Attending Note I evaluated the patient and personally participated in the julien components. I agree with the resident's findings and plan as documented and have discussed the case and management of the patient's care with the resident. Signature: Anai Lema MD Date: 01/05/2024 Time: 12:40 PM documented in this encounter [facility] 01-05-2024 Instructions Jasmine Parkerissa, - 01/05/2024 11:43 AM EST PATIENT PREOPERATIVE INSTRUCTIONS Charlotte Lindsey MD has scheduled you for your procedure at this surgery center: [facility] Scheduling Office: [phone] --[address] [place] [address]. Please read below carefully for your personalized [...] call the Wednesday before. Your surgeon s emergency dispatch operator will tell you what time to call the office. - If you have not reached the departmental emergency dispatch operator by 5 P.M., call [phone] after 5 P.M. the day before your surgery. Please be aware that emergency situations arise, which may delay or change your surgical time. If this happens, we will notify you as soon as possible and regret any inconvenience. If you already have an Advance Directive, please fax a copy to [phone] or email to for it to be [...] Leyda Parker DO documented in this encounter [facility] 01-05-2024 History and physical note HISTORY AND [...] fevers. Neuro: No history of TIA's, stroke, GROUP FITNESS MANAGER tumor, impaired sensorium, hemiplegia, paraplegia or quadraplegia. No neurological symptoms or problems. Respiratory: No history of current cough or dyspnea, or pneumonia in the past 6 weeks. No history of respiratory/pulmonary symptoms or problems. Cardiovascular: No history of HTN requiring medication, no history of angina, CHF, [place], cardiac surgery or stents. Denies rest pain, [...] TIME: 12:06 PM documented in this encounter [facility] 01-04-2024 Note HNO ID: [id number] Author: ELEANOR JONES RN Service: Nursing Author [...] DATE: January 04, 2024 TIME: 8:49 AM [facility] 01-04-2024 Note HNO ID: [id number] Author: THIAGO PRATHER MRI Tech Service: Radiology Author Type: Package Delivery Room Service Runner Type: Progress Notes Filed: 01/04/2024 10:12 Note [...] PATIENT PRESENTS WITH AN 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 ADMINISTRATION: No RADIOLOGY DEPARTMENT: MR; Exam(s) Completed: Body: Renal PERIPHERAL IV DATA: Site assessment: Clean,Dry and Intact, Site disposition Discontinued SIGNED BY: Thiago Prather rail washer January 04, 2024 10:11 AM [facility] 12-21-2023 History of Present illness Narrative [...] By signing my name below, I, Sultana Irina, attest that this documentation has been prepared under the direction and in the presence of Dr. Charlotte Lindsey MD. Electronically signed: Thuy Hargrove, December 21, 2023 11:10 AM I, [...] Charlotte Lindsey MD documented in this encounter [facility] 12-21-2023 Note HNO ID: [id number] Author: CHARLOTTE LINDSEY MD Service: ? Author [...] of Dr. Charlotte Lindsey MD. Electronically signed: Thuy Hargrove, December 21, 2023 11:10 AM ICharlotte MD, personally performed the services described in this documentation. All medical record entries made by the lizandroibe were at my direction and in my presence. I have rev (more content not included)... [facility] 12-21-2023 Note Patient Outreach (UR OLMN) ASHLEY LEDESMA ([id number]) 1960 M Date Time Provider Department 12/21/23 CHARLOTTE LINDSEY During your visit today, we recorded the following information about you: Allergies As of Date: 12/21/2023 (Not on File) Date Reviewed: Never Reviewed Visit Diagnosis:Screening for genitourinary condition [Z13.89] Order(s):URINALYSIS, REFLEX MICROSCOPIC [[id number]] Order #: [id number]. #:[id number] Prescriptions as of 12/24/2023 - allopurinol (ZYLOPRIM) [...] Of Date: 12/21/2023 (None) Encounter Status:Closed by KATHY DUNBARUSESneha on 12/24/23 [facility] 11-30-2023 Hospital Discharge instructions Patient Education [...] urethra. Follow these instructions at home: Take pmva-yjf-mnnyoeo and prescription medicines only as told by [...] provider. Document Revised: 06/03/2022 Document Reviewed: 06/03/2022 [employer] Patient Education 2022 [email or web address]. Follow Up Care 11/23/2023 16:14:09 With:ESTEFANI WILLIAMSON, Davey Hoover, URL Address: [facility] [address] [place] [address]- When: Unknown Comments:Appt scheduled for 09/29/24 [facility] [place] 11-11-2023 Hospital Discharge instructions Patient Education 11/11/2023 10:15:00 Benign Prostatic Hyperplasia Benign Prostatic Hyperplasia Benign [...] urethra. Follow these instructions at home: Take lvit-kge-lzcurln and prescription medicines only as told by [...] provider. Document Revised: 06/03/2022 Document Reviewed: 06/03/2022 [employer] Patient Education 2022 [email or web address]. 11/11/2023 10:14:56 Hematuria, Adult Hematuria, Adult Hematuria is blood in the urine. Blood may be visible in the urine, or it may be identified with a test. This condition can be caused by infections of the bladder, urethra, kidney, or prostate. Other possible causes include: Kidney stones. Cancer of the urinary tract. Too much calcium in the urine. Conditions that are passed from parent to child (inherited conditions). Exercise that requires a lot of energy. Infections can usually be treated with medicine, and a kidney stone usually will pass through your urine. If neither of these is the cause of your hematuria, more tests may be needed to identify the cause of your symptoms. It is very important to tell your health care provider about any blood in your urine, even if it is painless or the blood stops without treatment. Blood in the urine, when it happens and then stops and then happens again, can be a symptom of a very serious condition, including cancer. There is no pain in the initial stages of many urinary cancers. Follow these instructions at home: Medicines Take qylv-kdb-mxgfxhb and prescription medicines only as told by your health care provider. If you were prescribed an antibiotic medicine, take it as told by your health care provider. Do not stop taking the antibiotic even if you start to feel better. Eating and drinking Drink enough fluid to keep your urine pale yellow. It is recommended that you drink 3 4 quarts (2.8 3.8 L) a day. If you have been diagnosed with an infection, drinking cranberry juice in addition to large amounts of water is recommended. Avoid caffeine, tea, and carbonated beverages. These tend to irritate the bladder. Avoid alcohol because it may irritate the prostate (in males). General instructions If you have been diagnosed with a kidney stone, follow your health care provider's instructions about straining your urine to catch the stone. Empty your bladder often. Avoid holding urine for long periods of time. If you are female: ?After a bowel movement, wipe from front to back and use each piece of toilet paper only once. ?Empty your bladder before and after sex. Pay attention to any changes in your symptoms. Tell your health care provider about any changes or any new symptoms. It is up to you to get the results of any tests. Ask your health care provider, or the department that is doing the test, when your results will be ready. Keep all follow-up visits. This is important. Contact a health care provider if: You develop back pain. You have a fever or chills. You have nausea or vomiting. Your symptoms do not improve after 3 days. Your symptoms get worse. Get help right away if: You develop severe vomiting and are unable to take medicine without vomiting. You develop severe pain in your back or abdomen even though you are taking medicine. You pass a large amount of blood in your urine. You pass blood clots in your urine. You feel very weak or like you might faint. You faint. Summary Hematuria is blood in the urine. It has many possible causes. It is very important that you tell your health care provider about any blood in your urine, even if it is painless or the blood stops without treatment. Take tfdd-jvd-mjunuiv and prescription medicines only as told by your health care provider. Drink enough fluid to keep your urine pale yellow. This information is not intended to replace advice given to you by your health care provider. Make sure you discuss any questions you have with your health care provider. Document Revised: 07/16/2021 Document Reviewed: 07/16/2021 [employer] Patient Education 2022 [email or web address]. 11/11/2023 10:14:55 Erectile Dysfunction Erectile Dysfunction Erectile dysfunction (ED) is the inability to get or keep an erection in order to have sexual intercourse. ED is considered a symptom of an underlying disorder and is not considered a disease. ED may include: Inability to get an erection. Lack of enough hardness of the erection to allow penetration. Loss of erection before sex is finished. What are the causes? This condition may be caused by: Physical causes, such as: ?Artery problems. This may include heart disease, high blood pressure, atherosclerosis, and diabetes. ?Hormonal problems, such as low testosterone. ?Obesity. ?Nerve problems. This may include back or pelvic injuries, multiple sclerosis, Parkinson's disease, spinal cord injury, and stroke. Certain medicines, such as: ?Pain relievers. ?Antidepressants. ?Blood pressure medicines and water pills (diuretics). ?Cancer medicines. ?Antihistamines. ?Muscle relaxants. Lifestyle factors, such as: ?Use of drugs such as marijuana, cocaine, or opioids. ?Excessive use of alcohol. ?Smoking. ?Lack of physical activity or exercise. Psychological causes, such as: ?Anxiety or stress. ?Sadness or depression. ?Exhaustion. ?Fear about sexual performance. ?Guilt. What are the signs or symptoms? Symptoms of this condition include: Inability to get an erection. Lack of enough hardness of the erection to allow penetration. Loss of the erection before sex is finished. Sometimes having normal erections, but with frequent unsatisfactory episodes. Low sexual satisfaction in either partner due to erection problems. A curved penis occurring with erection. The curve may cause pain, or the penis may be too curved to allow for intercourse. Never having nighttime or morning erections. How is this diagnosed? This condition is often diagnosed by: Performing a physical exam to find other diseases or specific problems with the penis. Asking you detailed questions about the problem. Doing tests, such as: ?Blood tests to check for diabetes mellitus or high cholesterol, or to measure hormone levels. ?Other tests to check for underlying health conditions. ?An ultrasound exam to check for scarring. ?A test to check blood flow to the penis. Doing a sleep study at home to measure nighttime erections. How is this treated? This condition may be treated by: Medicines, such as: ?Medicine taken by mouth to help you achieve an erection (oral medicine). ?Hormone replacement therapy to replace low testosterone levels. ?Medicine that is injected into the penis. Your health care provider may instruct you how to give yourself these injections at home. ?Medicine that is delivered with a short applicator tube. The tube is inserted into the opening at the tip of the penis, which is the opening of the urethra. A tiny pellet of medicine is put in the urethra. The pellet dissolves and enhances erectile function. This is also called MUSE (medicated urethral system for erections) therapy. Vacuum pump. This is a pump with a ring on it. The pump and ring are placed on the penis and used to create pressure that helps the penis become erect. Penile implant surgery. In this procedure, you may receive: ?An inflatable implant. This consists of cylinders, a pump, and a reservoir. The cylinders can be inflated with a fluid that helps to create an erection, and they can be deflated after intercourse. ?A semi-rigid implant. This consists of two silicone rubber rods. The rods provide some rigidity. They are also flexible, so the penis can both curve downward in its normal position and become straight for sexual intercourse. Blood vessel surgery to improve blood flow to the penis. During this procedure, a blood vessel from a different part of the body is placed into the penis to allow blood to flow around (bypass) damaged or blocked blood vessels. Lifestyle changes, such as exercising more, losing weight, and quitting smoking. Follow these instructions at home: Medicines Take ayop-bcn-nkcnerh and prescription medicines only as told by your health care provider. Do not increase the dosage without first discussing it with your health care provider. If you are using self-injections, do injections as directed by your health care provider. Make sure you avoid any veins that are on the surface of the penis. After giving an injection, apply pressure to the injection site for 5 minutes. Talk to your health care provider about how to prevent headaches while taking ED medicines. These medicines may cause a sudden headache due to the increase in blood flow in your body. General instructions Exercise regularly, as directed by your health care provider. Work with your health care provider to lose weight, if needed. Do not use any products that contain nicotine or tobacco. These products include cigarettes, chewing tobacco, and vaping devices, such as e-cigarettes. If you need help quitting, ask your health care provider. Before using a vacuum pump, read the instructions that come with the pump and discuss any questions with your health care provider. Keep all follow-up visits. This is important. Contact a health care provider if: You feel nauseous. You are vomiting. You get sudden headaches while taking ED medicines. You have any concerns about your sexual health. Get help right away if: You are taking oral or injectable medicines and you have an erection that lasts longer than 4 hours. If your health care provider is unavailable, go to the nearest emergency room for evaluation. An erection that lasts much longer than 4 hours can result in permanent damage to your penis. You have severe pain in your groin or abdomen. You develop redness or severe swelling of your penis. You have redness spreading at your groin or lower abdomen. You are unable to urinate. You experience chest pain or a rapid heartbeat (palpitations) after taking oral medicines. These symptoms may represent a serious problem that is an emergency. Do not wait to see if the symptoms will go away. Get medical help right away. Call your local emergency services (911 in the [place] Do not drive yourself to the hospital. Summary Erectile dysfunction (ED) is the inability to get or keep an erection during sexual intercourse. This condition is diagnosed based on a physical exam, your symptoms, and tests to determine the cause. Treatment varies depending on the cause and may include medicines, hormone therapy, surgery, or a vacuum pump. You may need follow-up visits to make sure that you are using your medicines or devices correctly. Get help right away if you are taking or injecting medicines and you have an erection that lasts longer than 4 hours. This information is not intended to replace advice given to you by your health care provider. Make sure you discuss any questions you have with your health care provider. Document Revised: 02/11/2022 Document Reviewed: 02/11/2022 [employer] Patient Education 2022 [email or web address]. [facility] [place] 09-24-2023 Hospital Discharge instructions Patient [...] treatment? Where to find more information [employer]: www.cancer.org [facility] Association: www.[email or web address] Contact a health care [...] provider. Document Revised: 05/11/2022 Document Reviewed: 05/11/2022 [employer]Book Patient Education 2022 [email or web address]. Follow Up Care 09/28/2022 15:56:00 With:ESTEFANI WILLIAMSON, Davey Hoover, URL Address: [address] [place], [place] [id number]- When: Unknown [facility] 07-12-2023 Hospital Discharge instructions Patient Education [...] including vitamins, herbs, eye drops, creams, and jaaf-xwv-bgazfah medicines. Any problems you or family members [...] provider tells you to take them. Taking otwm-xla-mzujuhx medicines, vitamins, herbs, and supplements. General instructions [...] provider. Document Revised: 11/09/2022 Document Reviewed: 07/08/2022 [employer] Patient Education 2022 [email or web address]. Follow Up Care 07/06/2023 13:47:03 With:Garima Eastman CNP Address: When:1 to 2 weeks Comments:Following colonoscopy. [facility] 02-18-2023 Hospital Discharge instructions Patient Education 02/18/2023 16:09:24 Endoscopy, Care After Procedure [facility] [place] Care After Procedure Please read the [...] blood. Document Released: 06/29/2005 Document Re-Released: 05/09/2007 [facility] Patient Information 2010 [facility]. 02/18/2023 16:09:24 Swallowed Foreign Body, Adult, Ohzs-cg-Udmq Swallowed Foreign Body, Adult A swallowed foreign [...] yourself after the procedure. General instructions Take auug-pic-iprioox and prescription medicines only as told by [...] 03/01/2012 Document Revised: 09/28/2019 Document Reviewed: 09/28/2019 InstyBook Patient Education 2020 [email or web address]. Follow Up Care 02/18/2023 13:49:24 With:Gato Powell Address:Unknown When:1 to 2 weeks Comments:Call for any problems. Office will call with biopsy results [facility] 02-18-2023 Evaluation + Plan note Extrac humberto from: Title:CSB post op Author:Guillermo Hou MD Date:02/18/23 Plan Transfer/Discharge: Transfer/Discharge Discharge when meets [...] Date:09/27/2023 01:45:00 PM Scheduled Provider:Davey JARA MD Location:[facility] Appointment Type:[facility]O [facility] Future Appointments Appointment Date:06/18/2023 01:45:00 PM Scheduled Provider: Location:[facility] Appointment Type:Surgery FT Appointment Date:09/27/2023 01:45:00 PM Scheduled Provider:Davey JARA MD Location:[facility] Appointment Type:URO Office Visit [facility] Evaluation + Plan note Future Appointments Appointment Date:09/24/2023 08:15:00 AM Scheduled Provider:Davey JARA MD Location:[facility] Appointment Type:URO Office Visit [facility] Evaluation + Plan note Future Appointments Appointment Date:09/29/2024 08:00:00 AM Scheduled Provider:Davey JARA MD Location:[facility] Appointment Type:URO Office Visit Diagnostic Tests Pending * PSA Total 07/30/24 [facility] evaluation + Plan note Future Appointments Appointment Date:09/29/2024 08:00:00 AM Scheduled Provider:Dvaey JARA MD Location:[facility] Appointment Type:URO Office Visit [facility] Evaluation + Plan note Future Appointments Appointment Date:11/11/2023 02:00:00 PM Scheduled Provider:COLLEEN Giraldo APRN, [place] X Location:[facility] Appointment Type:URO Office Visit Appointment Date:09/29/2024 08:00:00 AM Scheduled Provider:Davey JARA MD [facility] App[facility] Type:URO Office Visit Diagnostic Tests Pending * Urine Culture [facility] Future Appointments Appointment Date:11/30/2023 01:15:00 PM Scheduled Provider:Davey JARA MD Location:[facility] Appointment Type:URO Procedure 15 min Appointment Date:09/29/2024 08:00:00 AM Scheduled Provider:Davey JARA MD Location:[facility] [place] Appointment Type:URO Office Visit [facility] evaluation + Plan note Future Appointments Appointment Date:09/29/2024 08:00:00 AM Scheduled Provider:Davey JARA MD [facility] App[facility] Type:URO Office Visit Diagnostic Tests Pending * UroVysion Fish and Urine Cyto ([facility]) 11[facility]30/23 [facility] Future Appointments Appointment Date:09/29/2024 08:00:00 AM Scheduled Provider:Davey JARA MD Location:[facility] Appointment Type:URO Office Visit Diagnostic Tests Pending * UroVysion Fish and Urine Cyto ([facility]) 11/11/23 [facility] note* Diagnosis Pre-op evaluation- Primary Preoperative examination, unspecified Renal mass Unspecified disorder of kidney and ureter [facility] Ac[facility] of [facility] Diagnosis Renal cell carcinoma of left kidney (HCC)- Primary H/O left nephrectomy Stage 3b chronic kidney disease (HCC) [facility] Renal mass- Primary Unspecified disorder of kidney and ureter Gross hematuria Other specified disorders of kidney and ureter 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) Acquired cyst of kidney [facility] Diagnosis Screening for genitourinary condition Screening for other and unspecified genitourinary condition [facility] Diagnosis H/O left nephrectomy Stage [...] pseudocyst of pancreas documented in this encounter [facility] note* Diagnosis Screening for genitourinary condition Screening for other and unspecified genitourinary condition Stage 3b chronic kidney disease (HCC) H/O left nephrectomy documented in this encounter [facility] note* Diagnosis Stage 3b chronic kidney disease (HCC)- Primary H/O left nephrectomy documented in this encounter [facility] note* Diagnosis Pre-op evaluation- Primary Preoperative examination, unspecified 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 documented in this encounter [facility] noteNo assessment information availablePark[facility] Work Phone: [facility] [place] [facility]* Diagnosis Pre-op evaluation- Primary Preoperative examination, unspecified Elevated prostate specific antigen (PSA)- Primary Benign prostatic hyperplasia with lower urinary tract symptoms, symptom details unspecified Impotence of organic origin History of renal cell cancer H/O left nephrectomy documented in this encounter [facility] note* Diagnosis Pre-op evaluation- Primary Preoperative examination, unspecified Screening for genitourinary condition Screening for other and unspecified genitourinary condition documented in this encounter [facility] note* Diagnosis Pre-op evaluation- Primary Preoperative examination, unspecified Screening for genitourinary condition Screening for other and unspecified genitourinary condition documented in this encounter [facility] note* Diagnosis Pre-op evaluation- Primary Preoperative examination, unspecified Screening for genitourinary condition- Primary Screening for other and unspecified genitourinary condition Stage 3b chronic kidney disease (HCC) documented in this encounter [facility] note* Diagnosis Pre-op evaluation- Primary Preoperative examination, unspecified History of renal cell cancer documented in this encounter [facility] note* Diagnosis Pre-op evaluation- Primary Preoperative examination, unspecified History of renal cell cancer documented in this encounter [facility] note* Diagnosis Cortical age-related cataract of both eyes- Primary documented in this encounter [facility] note* Diagnosis Pre-op evaluation- Primary Preoperative examination, unspecified Benign prostatic hyperplasia with lower urinary tract symptoms, symptom details unspecified- Primary Screening for genitourinary condition Screening for other and unspecified genitourinary condition History of renal cell cancer Impotence of organic origin Malignant neoplasm of kidney excluding renal pelvis, unspecified laterality (HCC) Screening for genitourinary condition Screening for other and unspecified genitourinary condition documented in this encounter [facility] course Narrative No data available for this section [facility] No data available for this section [facility] Progress note No data available for this section [facility] (n[facility]ative)* Diagnostic Procedure Only (Routine) - Closed Specialty Diagnoses / Procedures Referred By Andrew t Referred To Contact [facility] FUNCTIONAL IMAGING Diagnoses Acquired cyst of kidney Procedures NM RENAL FLOW/FXN WO PHARM KIDNEY IMG MORPHOLOGY VASCULAR FLOW 1 W/O RX Jonny Valencia MD [address] [place] [address] Molecular [facility] Functional [facility] [address] [place] [address] Referral ID Status Reason Start Date Expiration Date V isits Requested Visits Authorized [id number] Closed Auto-Generate d Referral 12/21/2023 11/28/2024 1 1 [facility] for referral (narrative)* Diagnostic Procedure Only (Routine) - Closed Specialty Diagnoses / Procedures Referred By Andrew t Referred To Contact MOLECULAR & FUNCTIONAL IMAGING Diagnoses Acquired cyst of kidney Procedures NM RENAL FLOW/FXN WO PHARM KIDNEY IMG MORPHOLOGY VASCULAR FLOW 1 W/O RX Jonny Valencia MD [address] [place] [address] Molecular [facility] Functional Imaging [address] [place] [address] Referral ID Status Reason Start Date Expiration Date V isits Requested Visits Authorized [id number] Closed Auto-Generate d Referral 12/21/2023 11/28/2024 1 1 * Outpatient Procedure (Routine) - Pending Review Specialty Diagnoses / Procedures Referred By Andrew paredes Referred To Contact [facility] Diagnoses Renal mass Gross hematuria Other specified disorders of kidney and ureter 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) Procedures ECG COMPLETE ECG ROUTINE ECG W/LEAST 12 LDS W/I&R Jonny Valencia MD [address] [place] [address] [facility] [address] [place] [address] Referral ID Status Reason Start Date Expiration Date Visits Requested Visits Authorized [id number] Pending Review Auto-Generat ed Referral 12/21/2023 12/20/2024 1 1 * MRI/CT (Routine) - Closed Specialty Diagnoses / Procedures [facility] To Contact CT [facility] Diagnoses 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) Procedures CT CHEST WO IVCON DIAGNOSTIC COMPUTED TOMOGRAPHY THORAX W/O CNTRST Jonny Valencia MD [address] [place] [address] Ct Imaging [place] [address] Referral ID Status Reason Start Date Expiration Date V isits Requested Visits Authorized [id number] Closed Auto-Generat ed Referral Patient Cleared - Admin/Chairm an/Director advise to proceed or did not respond 01/05/2024 01/05/2024 1 1 * MRI/CT (Routine) - Closed Specialty Diagnoses / Procedures [facility] Referred To Contact MR IM[facility]ING Diagnoses Other specified disorders of kidney and ureter Procedures MRI KIDNEY WO/W IVCON MRI ABDOMEN W/O & W/CONTRAST MATERIAL Jonny Valencia MD [address] [place] [address] [place] [address] Referral ID Status Reason Start Date Expiration Date V isits Requested Visits Authorized [id number] Closed Auto-Generate d Referral 01/04/2024 02/02/2024 1 1 [facility] Summary Purpose Family History No Family History [...] Found Advance Directives No Advanced Directives Records Found Advance Directive Response Recorded Date/ Time Advance Directives No July 19, 2024 4:36pm Reason for Referral Specialty Diagnoses / Procedures Referred By Contac t Referred To Contact CT IMAGING Diagnoses History of renal cell cancer Procedures CT CHEST WO IVCON DIAGNOSTIC COMPUTED TOMOGRAPHY THORAX W/O CNTRST Jada Santo APRN.HAND SPLITTER [address] [place] [address] Ct Imaging [place] [address] Referral ID Status Reason Start Date Expiration Date Visits Requested Visits Authorized [id number] Pending Review Auto-Generat ed Referral 04/26/2024 05/26/2025 1 1 Specialty Diagnoses / Procedures Referred By Contac t Referred To Contact MR IMAGING Diagnoses History of renal cell cancer Procedures MRI ABDOMEN WO/W IVCON MRI ABDOMEN W/O & W/CONTRAST MATERIAL Jada Santo APRN.HAND SPLITTER [address] [place] [address] Mr Imaging [place] [address] Referral ID Status Reason Start Date Expiration Date Visits Requested Visits Authorized [id number] Pending Review Auto-Generat ed Referral 04/26/2024 05/26/2025 1 1 Specialty Diagnoses / Procedures Referred By Contac t Referred To Contact Gastroenterology Diagnoses Pancreatic cyst Procedures CONSULT TO GASTROENTEROLOGY OFFICE/OUTPATIENT [facility] 60 MINUTES Jada Santo PBX REPAIRER.HAND SPLITTER [address] [place] [address] Referral ID Status Reason Start Date Expiration Date Visits Requested Visits Authorized [id number] Authorized PCP Requested Referral 04/26/2024 04/26/2025 1 1 Specialty Diagnoses / Procedures Referred By Contac t Referred To Contact MR IMAGING Diagnoses Renal cell carcinoma of left kidney (HCC) Procedures MRI ABDOMEN WO/W IVCON MRI ABDOMEN W/O & W/CONTRAST MATERIAL Jada Santo, PBX REPAIRER.HAND SPLITTER [address] [place] [address] Mr Imaging [facility] [address] Referral ID Status Reason Start Date Expiration Date Visits Requested Visits Authorized [id number] Pending Review Auto-Generat ed Referral 01/25/2024 02/23/2025 1 1 Specialty Diagnoses / Procedures Referred By Andrew t Referred To Contact CT IMAGING Diagnoses Renal cell carcinoma of left kidney (HCC) Procedures CT CHEST WO IVCON DIAGNOSTIC COMPUTED TOMOGRAPHY THORAX W/O CNTRST Jada Santo, PBX REPAIRER.HAND SPLITTER [address] [place] [phone] Imaging [facility] [address] Referral ID Status Reason Start Date Expiration Date Visits Requested Visits Authorized [id number] Pending Review Auto-Generat ed Referral 01/25/2024 02/23/2025 1 1 Specialty Diagnoses / Procedures Referred By Andrew t Referred To Contact Nephrology Diagnoses H/O left nephrectomy Stage 3b chronic kidney disease (HCC) Procedures CONSULT TO NEPHROLOGY OFFICE/OUTPATIENT [facility] 60 MINUTES Jada Santo, PBX REPAIRER.HAND SPLITTER [address] [place] [id number] Referral ID Status Reason Start Date Expiration Date Visits Requested Visits Authorized [id number] Authorized PCP Requested Referral 01/25/2024 01/24/2025 1 1 Chief Complaint and Reason for Visit Chief Complaint R97.20 Z85.51 Additional Source Comments (unrecognized sect ion and content) No Status Records FoundNo Status Records FoundNo Status Records FoundNo Status Records FoundNo Status Records FoundNo Status Records FoundNo Status Records FoundNo Status Records FoundNo Status Records Found INFORMATION SOURCE (unrecogn ized section and content) DATE CREATED AUTHOR 05/25/2018 [facility] DATE CREATED AUTHOR AUTHOR'S ORGANIZ ATION 01/26/2021 [facility] DATE CREATED AUTHOR AUTHOR'S ORGANIZ ATION 07/12/2023 [facility] DATE CREATED AUTHOR AUTHOR'S ORGANIZ ATION 08/27/2024 [facility] DATE CREATED AUTHOR AUTHOR'S ORGANIZ ATION 10/02/2024 [facility] DATE CREATED AUTHOR AUTHOR'S ORGANIZ ATION 10/30/2024 [facility] DATE CREATED AUTHOR AUTHOR'S ORGANIZ ATION 11/24/2024 [facility] DATE CREATED AUTHOR AUTHOR'S ORGANIZ ATION 12/20/2024 [facility] DATE CREATED AUTHOR AUTHOR'S ORGANIZ ATION 12/20/2024 [facility] Patient Care team informatio n (unrecognized section and content) Mine Safety Manager Relationship Specialty Start Date End Date Adan Lamar MD [address] [place] [facility] [place] [address] PCP - General Family Medicine 12/22/23 Mine Safety Manager Relationship Specialty Start Date End Date Adan Lamar MD [address] [place] [facility] [place] [address] PCP - General Family Medicine 12/22/23 Mine Safety Manager Relationship Specialty Start Date End Date Adan Lamar MD [address] [place] [facility] [place] [address] PCP - General Family Medicine 12/22/23 Mine Safety Manager Relationship Specialty Start Date End Date Adan Lamar MD [address] [place] [address] PCP - General Family Medicine 12/22/23 Mine Safety Manager Relationship Specialty Start Date End Date Adan Lamar MD [address] [place] [facility] [place] [address] PCP - General Family Medicine 12/22/23 Mine Safety Manager Relationship Specialty Start Date End Date Adan Lamar MD [address] [place] [address] PCP - General Family Medicine 12/22/23 Mine Safety Manager Relationship Specialty Start Date End Date Adan Lamar MD [address] [place] [address] PCP - General Family Medicine 12/22/23 Mine Safety Manager Relationship Specialty Start Date End Date Adan Lamar MD [address] [place] [address] PCP - General Family Medicine 12/22/23 Mine Safety Manager Relationship Specialty Start Date End Date Adan Lamar MD [address] [place] [phone] PCP - General Family Medicine 12/22/23 Mine Safety Manager Relationship Specialty Start Date End Date Adan Lamar MD [address] [place] [phone] PCP - General Family Medicine 12/22/23 Mine Safety Manager Relationship Specialty Start Date End Date Adan Lamar MD [address] [place] [id number] PCP - General Family Medicine 12/22/23 Mine Safety Manager Relationship Specialty Start Date End Date Adan Lamar MD [address] [place] [address] PCP - General Family Medicine 12/22/23 Mine Safety Manager Relationship Specialty Start Date End Date Adan Lamar MD [address] [place] [address] PCP - General Family Medicine 12/22/23 Mine Safety Manager Relationship Specialty Start Date End Date Adan Lamar MD [address] [place] [address] PCP - General Family Medicine 12/22/23 Team Status: Active Member Role Status Monalisa Lamar MD Primary Care Provider Active Team Status: Inactive Member Role Status Dates Adan Lamar MD Primary Care Provider Active Start: August 23, 2024 End: August 23, 2024 Davey Jara MD Attending Provider Active St art: August 23, 2024 End: August 23, 2024 Mine Safety Manager Relationship Specialty Start Date End Date Adan Lamar MD [address] [place] [address] PCP - General Family Medicine 12/22/23 Mine Safety Manager Relationship Specialty Start Date End Date Adan Lamar MD [address] [place] [address] PCP - General Family Medicine 12/22/23 Mine Safety Manager Relationship Specialty Start Date End Date Adan Lamar MD [address] [place] [address] PCP - General Family Medicine 12/22/23 Mine Safety Manager Relationship Specialty Start Date End Date Adan Lamar MD [address] [place] [address] PCP - General Family Medicine 12/22/23 Mine Safety Manager Relationship Specialty Start Date End Date Adan Lamar MD [address] [place] [address] PCP - General Family Medicine 12/22/23 Mine Safety Manager Relationship Specialty Start Date End Date Adan Lamar MD [address] [place] [address] PCP - General Family Medicine 04/28/23 Mine Safety Manager Relationship Specialty Start Date End Date Adan Lamar MD [address] [facility] [place] [address] PCP - General Family Medicine 04/28/23 Mine Safety Manager Relationship Specialty Start Date End Date Adan Lamar MD [address] [facility] [place] [address] PCP - General Family Medicine 12/22/23 Source Comments (unrecognize d section and content) In the event this informatio n is protected by the Federal Confidentiality of Alcohol and Drug Abuse Patient Records regulations: The Federal rules restrict any use of the information to criminally investigate or prosecute any alcohol or drug abuse patient.[facility] HealthIn the event this information is protected by the Federal Confidentiality of Alcohol and Drug Abuse Patient Records regulations: The Federal rules restrict any use of the information to criminally investigate or prosecute any alcohol or drug abuse patient.[facility] HealthIn the event this information is protected by the Federal Confidentiality of Alcohol and Drug Abuse Patient Records regulations: The Federal rules restrict any use of the information to criminally investigate or prosecute any alcohol or drug abuse patient.[facility] HealthIn the event this information is protected by the Federal Confidentiality of Alcohol and Drug Abuse Patient Records regulations: The Federal rules restrict any use of the information to criminally investigate or prosecute any alcohol or drug abuse patient.[facility] HealthIn the event this information is protected by the Federal Confidentiality of Alcohol and Drug Abuse Patient Records regulations: The Federal rules restrict any use of the information to criminally investigate or prosecute any alcohol or drug abuse patient.[facility] HealthIn the event this information is protected by the Federal Confidentiality of Alcohol and Drug Abuse Patient Records regulations: The Federal rules restrict any use of the information to criminally investigate or prosecute any alcohol or drug abuse patient.[facility] HealthIn the event this information is protected by the Federal Confidentiality of Alcohol and Drug Abuse Patient Records regulations: The Federal rules restrict any use of the information to criminally investigate or prosecute any alcohol or drug abuse patient.[facility] HealthIn the event this information is protected by the Federal Confidentiality of Alcohol and Drug Abuse Patient Records regulations: The Federal rules restrict any use of the information to criminally investigate or prosecute any alcohol or drug abuse patient.[facility] HealthIn the event this information is protected by the Federal Confidentiality of Alcohol and Drug Abuse Patient Records regulations: The Federal rules restrict any use of the information to criminally investigate or prosecute any alcohol or drug abuse patient.[facility] HealthIn the event this information is protected by the Federal Confidentiality of Alcohol and Drug Abuse Patient Records regulations: The Federal rules restrict any use of the information to criminally investigate or prosecute any alcohol or drug abuse patient.[facility] HealthIn the event this information is protected by the Federal Confidentiality of Alcohol and Drug Abuse Patient Records regulations: The Federal rules restrict any use of the information to criminally investigate or prosecute any alcohol or drug abuse patient.[facility] HealthIn the event this information is protected by the Federal Confidentiality of Alcohol and Drug Abuse Patient Records regulations: The Federal rules restrict any use of the information to criminally investigate or prosecute any alcohol or drug abuse patient.[facility] HealthIn the event this information is protected by the Federal Confidentiality of Alcohol and Drug Abuse Patient Records regulations: The Federal rules restrict any use of the information to criminally investigate or prosecute any alcohol or drug abuse patient.[facility] HealthIn the event this information is protected by the Federal Confidentiality of Alcohol and Drug Abuse Patient Records regulations: The Federal rules restrict any use of the information to criminally investigate or prosecute any alcohol or drug abuse patient.[facility] HealthIn the event this information is protected by the Federal Confidentiality of Alcohol and Drug Abuse Patient Records regulations: The Federal rules restrict any use of the information to criminally investigate or prosecute any alcohol or drug abuse patient.[facility] HealthIn the event this information is protected by the Federal Confidentiality of Alcohol and Drug Abuse Patient Records regulations: The Federal rules restrict any use of the information to criminally investigate or prosecute any alcohol or drug abuse patient.[facility] HealthIn the event this information is protected by the Federal Confidentiality of Alcohol and Drug Abuse Patient Records regulations: The Federal rules restrict any use of the information to criminally investigate or prosecute any alcohol or drug abuse patient.[facility] HealthIn the event this information is protected by the Federal Confidentiality of Alcohol and Drug Abuse Patient Records regulations: The Federal rules restrict any use of the information to criminally investigate or prosecute any alcohol or drug abuse patient.[facility] HealthIn the event this information is protected by the Federal Confidentiality of Alcohol and Drug Abuse Patient Records regulations: The Federal rules restrict any use of the information to criminally investigate or prosecute any alcohol or drug abuse patient.[facility] HealthIn the event this information is protected by the Federal Confidentiality of Alcohol and Drug Abuse Patient Records regulations: The Federal rules restrict any use of the information to criminally investigate or prosecute any alcohol or drug abuse patient.[facility] HealthIn the event this information is protected by the Federal Confidentiality of Alcohol and Drug Abuse Patient Records regulations: The Federal rules restrict any use of the information to criminally investigate or prosecute any alcohol or drug abuse patient.[facility] HealthIn the event this information is protected by the Federal Confidentiality of Alcohol and Drug Abuse Patient Records regulations: The Federal rules restrict any use of the information to criminally investigate or prosecute any alcohol or drug abuse patient.[facility] HealthIn the event this information is protected by the Federal Confidentiality of Alcohol and Drug Abuse Patient Records regulations: The Federal rules restrict any use of the information to criminally investigate or prosecute any alcohol or drug abuse patient.[facility] Reason for Visit (unrecogniz ed section and content) Reason Comments Radiology NM Specialty Diagnoses / Procedures Referred By Andrew t Referred To Contact MOLECULAR & FUNCTIONAL IMAGING Diagnoses Acquired cyst of kidney Procedures NM RENAL FLOW/FXN WO PHARM KIDNEY IMG MORPHOLOGY VASCULAR FLOW 1 W/O RX Jonny Valencia MD [address] [place] [address] Molecular & Functional Imaging [address] [id number] Referral ID Status Reason Start Date Expiration Date V isits Requested Visits Authorized [id number] Closed Auto-Generate d Referral 12/21/2023 11/28/2024 1 1 Reason Comments Returning Patient's Call Reason Comments Follow Up Phone Call All Clear Reason Comments Post-Op Visit Reason Comments New Patient Reason Comments Consult Specialty Diagnoses / Procedures Referred By Andrew paredes Referred To Contact Nephrology Diagnoses H/O left nephrectomy Stage 3b chronic kidney disease (HCC) Procedures CONSULT TO NEPHROLOGY OFFICE/OUTPATIENT NEW HIGH MDM 60 MINUTES Jada Santo, PBX REPAIRER.HAND SPLITTER [address] [place] [address] Referral ID Status Reason Start Date Expiration Date V isits Requested Visits Authorized [id number] Closed PCP Requested Referral 01/25/2024 01/24/2025 1 1 Specialty Diagnoses / Procedures Referred By Andrew t Referred To Contact CT IMAGING Diagnoses Renal cell carcinoma of left kidney (HCC) Procedures CT CHEST WO IVCON DIAGNOSTIC COMPUTED TOMOGRAPHY THORAX W/O CNTRST Jada Santo APRN.HAND SPLITTER [id number] [facility] [place] [facility] Referral ID Status Reason Start Date Expiration Date V isits Requested Visits Authorized [id number] Closed Auto-Generate d Referral 01/25/2024 02/23/2025 1 1 Specialty Diagnoses / Procedures Referred By Contac t Referred To Contact MR IMAGING Diagnoses Renal cell carcinoma of left kidney (HCC) Procedures MRI ABDOMEN WO/W IVCON MRI ABDOMEN W/O & W/CONTRAST MATERIAL Jada Santo, PBX REPAIRER.HAND SPLITTER [address] [place] [address] [facility] [address] [address] Referral ID Status Reason Start Date Expiration Date V isits Requested Visits Authorized [id number] Closed Auto-Generate d Referral 01/25/2024 02/23/2025 1 1 Reason Comments Follow Up Reason Comments Follow Up Reason Comments cyst, pancreas Specialty Diagnoses / Procedures Referred By Contac t Referred To Contact CT IMAGING Diagnoses History of renal cell cancer Procedures CT CHEST WO IVCON DIAGNOSTIC COMPUTED TOMOGRAPHY THORAX W/O CNTRST Jada Santo, PBX REPAIRER.HAND SPLITTER [address] [place] [address] [address] [facility] [place] [address] Referral ID Status Reason Start Date Expiration Date V isits Requested Visits Authorized [id number] Closed Auto-Generate d Referral 10/27/2024 11/27/2024 1 1 Specialty Diagnoses / Procedures Referred By Contac t Referred To Contact MR IMAGING Diagnoses History of renal cell cancer Procedures MRI ABDOMEN WO/W IVCON MRI ABDOMEN W/O & W/CONTRAST MATERIAL Jada Santo, PBX REPAIRER.HAND SPLITTER [phone] [place] [address] Referral ID Status Reason Start Date Expiration Date V isits Requested Visits Authorized [id number] Closed Auto-Generate d Referral 10/27/2024 11/27/2024 1 1 Reason Comments Eye Exam Blurred Vision Goals (unrecognized section and content) Goals may be documented in a n alternate section FOR RECORDS PERTAINING TO PATIENTS WHO ARE [...] BE BASED ON THE PRIMARY CLINICAL RECORDS. [facility]. provides no warranty or guarantee of the accuracy or completeness of information in this document.
[2025-01-08 09:37] VITALS: BP 156/93; PULSE 63; TEMP 36.3; O2SAT 100
[2025-01-08 10:16] VITALS: BP 185/86; PULSE 68; O2SAT 99
[2025-01-08 10:18] VITALS: BP 167/98; PULSE 70; O2SAT 100
--- NOTE | 2025-01-08 10:18 | W.PM.PROCNOT ---
Date of procedure: 01/08/25 Pre-op diagnosis: Pain due to lumbar spondylosis without myelopathy Post-op diagnosis: same as pre-op Procedure: Procedure: Bilateral L4-5, L5-S1 medial branch block Medications: Bupivacaine 0.25% 6cc The patient was seen and examined in the preoperative holding area.? An informed consent was obtained and placed on the chart.? The patient was brought to the medical procedure unit and placed in the prone position.? A timeout was completed verifying correct patient, procedure site, positioning, plan, and special equipment.? Using aseptic technique, the needle was placed at left L4. Under direct fluoroscopic visualization a Quincke-tipped spinal needle was advanced to the junction of the superior articulating process with the transverse process at the designated medial branch segment.? Preceded by negative aspiration, the above-mentioned injectate was placed in 1 mL aliquots.? The procedure was repeated at left L5, S1.? The needle was removed and insertion site was covered. The same procedure, at the same levels, was completed on the right side. The patient was taken to the postprocedural recovery area and monitored for an appropriate length of time before found suitable for discharge in the company of a responsible adult. Anesthesia: Local Surgeon: Marco Rivas Pathology: none sent Condition: stable Disposition: no change
[2025-01-08] MEDS: BUPIVACAINE HCL 0.25% PF 25 MG/10 ML VIAL 7 ML INJ (10:19)
[2025-01-08] MEDS: LIDOCAINE HCL 2% 400 MG/20 ML MDV INJ (10:19)
== END 2025-01-08 10:23 | disposition home or self-care (01) ==
PROVIDERS: PCP Family Medicine; Visit Provider Anesthesiology
DX: M47.816 Spondylosis without myelopathy or radiculopathy, lumbar region (principal); M54.50 Low back pain, unspecified
CPT/HCPCS: 64493; 64494; J0665

== ENCOUNTER 2025-01-10 13:26 | Outpatient (OUT) | payer MEDICARE, SELFPAY ==
--- NOTE | 2025-01-10 13:53 | P.CN_ITS ---
Consult Note: HPI Data of Consult Patient: known to practice within the last 3 years Requesting Physician: Taylor Velazco NP Primary Care Provider: Thomas De Santiago MD Consult Narrative Reason for consult: f/u Narrative: Alfonso Cadena a pleasant 64 year old male presents for evaluation and management of chronic right SIJ and low back pain. longstanding hx of lumbar and SIJ pain, was evaluated by Dr Isidro who does not recommend surgical intervention. recent right SIJ injection providing 75% improvement ongoing. has failed 6 weeks of provider guided HEP, tylenol, heat and ice. cannot take NSAIDs due to hx of kidney nephrectomy. today low back pain 2-3/10 increasing to 10/10 with standing, walking, stairs, bending, work, activity. Pain improved with sitting lying sleep. recently underwent bilateral L4-5 L5-S1 MBB #1 with >80% improvement in pain and functional ability immediately following and greater than 2 hours after the injection, preop pain up to 10/10 post op pain 1/10. cc:: CC: Taylor Velazco NP Review of Systems ROS Status of ROS 10 or more systems reviewed and unremark able except as noted in history and below Musculoskeletal Reports: back pain; Denies: extremity pain or joint pain [facility] Medical History (Updated 08/16/24 @ 15:51 by Letitia Winston RN) Cancer of kidney ?C64.9 - Malignant neoplasm of unspecified kidney, except renal pelvis (ICD- 10) Surgical History History of nephrectomy, left ?Z90.5 - Acquired absence of kidney (ICD-10) History of transurethral resection of prostate ?Z98.890 - Other specified postprocedural states (ICD-10) ?Z90.79 - Acquired absence of other genital organ(s) (ICD-10) Social History Smoking status: Former smoker Meds Home Medications and Allergies Home Medications ?Medication ?Instructions ?Recorded ?Confirmed ?Type allopurinol 300 mg tablet 300 mg PO DAILY 11/23/23 01/08/25 History tamsulosin 0.4 mg capsule 0.4 mg PO Q24H 11/23/23 01/08/25 History lisinopril 5 mg tablet 5 mg PO DAILY 08/10/24 01/08/25 History mirabegron 50 mg tablet,extended 50 mg PO DAILY 08/10/24 01/08/25 History release 24 hr (Myrbetriq) Allergies Allergy/AdvReac Type Severity Reaction Status Date / Time No Known Drug Allergies Allergy Verified 01/08/25 09:40 Exam Constitutional Documenting provider has reviewed patient's vital signs: yes Common normals: no apparent distress, oriented x3, healthy appearing, alert and well nourished General appearance: cooperative HENMT Common normals: normocephalic, hearing grossly normal bilaterally and moist oral mucous membranes Head and scalp: normocephalic Eye Common normals: PERRL Pupil: PERRL Neck & C-Spine Common normals: full ROM General: normal visual inspection Chest Common normals: inspection of chest normal Respiratory Common normals: normal respiratory effort, no retractions and no use of accessory muscles Back & Pelvis Lumbar spine/lower back: normal to inspection, pain with ROM and lumbar spinal tenderness; ROM not limited Sacroiliac joints: SI joints normal Other: negative right linden(patricks), gaenslens, thigh thrust, compression test Neuro Common normals: oriented x3, CN's II-XII intact bilaterally, moves all extremities, no focal motor deficits, no sensory deficits noted and deep tendon reflexes 2+ bilaterally Sensorium/orientation: alert Motor exam: strength 5/5 throughout and no movement abnormalities noted Psych Common normals: mental status grossly normal, thought process normal, cooperative, affect normal, speech normal and activity/motor behavior normal Speech: normal speech Thought process: normal thought process Results Additional Findings Additional findings: If on a controlled substance or opioids, I have checked an OARRS report on this patient and there are no aberrancies noted in the prescribing history.??If on a controlled substance or opioid a drug screen was completed and reviewed within the last year, and if there has not been a drug screen completed we ordered one today to monitor higher risk, state monitored pain medication use. As part of providing excellent, safe, comprehensive care, the following was completed at our patient's visit: 1. A medication reconciliation and review to ensure accurate knowledge of current/active medications, including asking our patients to inform us about any [id number]-nconjax medications or herbal remedies/nutritional supplements/alternative remedies. 2. A review to specifically ensure our patients have had annual screening for screening for depression, screening for tobacco use, and screening for unhealthy alcohol use. For concerning screenings had a discussion with the patient, provided patient education, and recommended follow-up with primary care provider when appropriate. If patient noted with a risk of falling, they received education on strength, gait, and balance training to prevent future risk of falling. Portions of this note may have been carried over from the previous visit and updated as appropriate. Please note this office utilizes paper charting in addition to the electronic medical record. A list of current medications, vitals, and PMH is available there as the clinical staff outside of myself do not have access to [employer] charting during the clinic day operations. As part of providing quality compre hensive care the current medications, vitals, and PMH were reviewed in the paper chart. Assessment and Plan Assessment and Plan (1) Lumbar spondylosis: Assessment and Plan: The patient has had over 3 months of moderate to severe low back and right SIJ pain with functional impairment and inadequate response to conservative care including NSAIDS (unless there are contraindication such as concurrent blood thinners), multiple oral or topical pain medications, and home exercise pr ogram/physical therapy.? Patient has completed >6 weeks of guided home exercise program and/or formal physical therapy program without relief of their symptoms.? The Oswestry Disability Index was completed, and the patient scored a 20%.? The patient noted the following:?? moderate to severe pain impacting ability to sit, walk and travel We discussed the risks and benefits of the procedure with the patient, and we are NOT planning on using sedation as outlined in the guidelines from Medicare unless there is a documented reason that sedation would be strongly recommended.?? ?The procedure will be completed with fluoroscopic guidance.? (2) Sacroiliitis: Plan bilateral L4-5 L5-S1 MBB x2 working towards RFA continue HEP as tolerated continue PRN tylenol and icy hot f/u after each injection
== END 2025-01-10 13:27 | disposition home or self-care (01) ==
LOC: PM 13:27
PROVIDERS: PCP Family Medicine; Visit Provider Nurse Practitioner
DX: M47.816 Spondylosis without myelopathy or radiculopathy, lumbar region (principal); M46.1 Sacroiliitis, not elsewhere classified
CPT/HCPCS: G0463

== ENCOUNTER 2025-01-22 09:51 | Day surgery (SDC) | payer MEDICARE, SELFPAY ==
[2025-01-22 10:19] VITALS: BP 149/90; PULSE 71; TEMP 36.3; O2SAT 99
[2025-01-22 11:02] VITALS: BP 154/81; BP 157/77; PULSE 79; PULSE 86; O2SAT 98; O2SAT 99
[2025-01-22] MEDS: BUPIVACAINE HCL 0.25% PF 25 MG/10 ML VIAL 8 ML INJ (11:03)
[2025-01-22] MEDS: LIDOCAINE HCL 2% 400 MG/20 ML MDV INJ (11:03)
--- NOTE | 2025-01-22 11:05 | W.PM.PROCNOT ---
Date of procedure: 01/22/25 Pre-op diagnosis: Pain due to lumbar spondylosis without myelopathy Post-op diagnosis: same as pre-op Procedure: Procedure: Bilateral L4-5, L5-S1 medial branch block Medications: Bupivacaine 0.25% 6cc The patient was seen and examined in the preoperative holding area.? An informed consent was obtained and placed on the chart.? The patient was brought to the medical procedure unit and placed in the prone position.? A timeout was completed verifying correct patient, procedure site, positioning, plan, and special equipment.? Using aseptic technique, the needle was placed at left L4. Under direct fluoroscopic visualization a Quincke-tipped spinal needle was advanced to the junction of the superior articulating process with the transverse process at the designated medial branch segment.? Preceded by negative aspiration, the above-mentioned injectate was placed in 1 mL aliquots.? The procedure was repeated at left L5, S1.? The needle was removed and insertion site was covered. The same procedure, at the same levels, was completed on the right side. The patient was taken to the postprocedural recovery area and monitored for an appropriate length of time before found suitable for discharge in the company of a responsible adult. Anesthesia: Local Surgeon: Marco Rivas Pathology: none sent Condition: stable Disposition: no change
== END 2025-01-22 11:08 | disposition home or self-care (01) ==
PROVIDERS: PCP Family Medicine; Visit Provider Anesthesiology
DX: M47.816 Spondylosis without myelopathy or radiculopathy, lumbar region (principal)
CPT/HCPCS: 64493; 64494; J0665

== ENCOUNTER 2025-01-24 13:24 | Outpatient (OUT) | payer MEDICARE, SELFPAY ==
--- NOTE | 2025-01-24 14:32 | P.CN_ITS ---
Consult Note: HPI Data of Consult Patient: known to practice within the last 3 years Requesting Physician: Taylor Velazco NP Primary Care Provider: Thomas De Santiago MD Consult Narrative Reason for consult: f/u Narrative: Alfonso Cadena a pleasant 64 year old male presents for evaluation and management of chronic right SIJ and low back pain. longstanding hx of lumbar and SIJ pain, was evaluated by Dr Isidro who does not recommend surgical intervention. recent right SIJ injection providing >50% improvement ongoing. has failed 6 weeks of provider guided HEP, tylenol, heat and ice. cannot take NSAIDs due to hx of kidney nephrectomy. today low back pain 4/10 increasing to 10/10 with standing, walking, stairs, bending, work, activity. Pain improved with sitting lying sleep. recently underwent bilateral L4-5 L5-S1 MBB #1 and #2 with >80% improvement in pain and functional ability immediately following and greater than 2 hours after the injection, preop pain up to 10/10 post op pain 2/10. cc:: CC: Taylor Velazco NP Review of Systems ROS Status of ROS 10 or more systems reviewed and unremark able except as noted in history and below Musculoskeletal Reports: back pain; Denies: extremity pain or joint pain [facility] Medical History (Updated 08/16/24 @ 15:51 by Letitia Winston RN) Cancer of kidney ?C64.9 - Malignant neoplasm of unspecified kidney, except renal pelvis (ICD- 10) Surgical History History of nephrectomy, left ?Z90.5 - Acquired absence of kidney (ICD-10) History of transurethral resection of prostate ?Z98.890 - Other specified postprocedural states (ICD-10) ?Z90.79 - Acquired absence of other genital organ(s) (ICD-10) Social History Smoking status: Former smoker Meds Home Medications and Allergies Home Medications ?Medication ?Instructions ?Recorded ?Confirmed ?Type allopurinol 300 mg tablet 300 mg PO DAILY 11/23/23 01/22/25 History tamsulosin 0.4 mg capsule 0.4 mg PO Q24H 11/23/23 01/22/25 History lisinopril 5 mg tablet 5 mg PO DAILY 08/10/24 01/22/25 History mirabegron 50 mg tablet,extended 50 mg PO DAILY 08/10/24 01/22/25 History release 24 hr (Myrbetriq) Allergies Allergy/AdvReac Type Severity Reaction Status Date / Time No Known Drug Allergies Allergy Verified 01/22/25 10:22 Exam Constitutional Documenting provider has reviewed patient's vital signs: yes Common normals: no apparent distress, oriented x3, healthy appearing, alert and well nourished General appearance: cooperative HENMT Common normals: normocephalic, hearing grossly normal bilaterally and moist oral mucous membranes Head and scalp: normocephalic Eye Common normals: PERRL Pupil: PERRL Neck & C-Spine Common normals: full ROM General: normal visual inspection Chest Common normals: inspection of chest normal Respiratory Common normals: normal respiratory effort, no retractions and no use of accessory muscles Back & Pelvis Lumbar spine/lower back: normal to inspection, pain with ROM and lumbar spinal tenderness; ROM not limited Sacroiliac joints: SI joint(s) abnormal Other: mildly positive bilateral linden(patricks), gaenslens, thigh thrust, compression test Neuro Common normals: oriented x3, CN's II-XII intact bilaterally, moves all extremities, no focal motor deficits, no sensory deficits noted and deep tendon reflexes 2+ bilaterally Sensorium/orientation: alert Motor exam: strength 5/5 throughout and no movement abnormalities noted Psych Common normals: mental status grossly normal, thought process normal, cooperative, affect normal, speech normal and activity/motor behavior normal Speech: normal speech Thought process: normal thought process Results Additional Findings Additional findings: If on a controlled substance or opioids, I have checked an OARRS report on this patient and there are no aberrancies noted in the prescribing history.??If on a controlled substance or opioid a drug screen was completed and reviewed within the last year, and if there has not been a drug screen completed we ordered one today to monitor higher risk, state monitored pain medication use. As part of providing excellent, safe, comprehensive care, the following was completed at our patient's visit: 1. A medication reconciliation and review to ensure accurate knowledge of current/active medications, including asking our patients to inform us about any [id number]-axr-wwzgnfk medications or herbal remedies/nutritional supplements/alternative remedies. 2. A review to specifically ensure our patients have had annual screening for screening for depression, screening for tobacco use, and screening for unhealthy alcohol use. For concerning screenings had a discussion with the patient, provided patient education, and recommended follow-up with primary care provider when appropriate. If patient noted with a risk of falling, they received education on strength, gait, and balance training to prevent future risk of falling. Portions of this note may have been carried over from the previous visit and updated as appropriate. Please note this office utilizes paper charting in addition to the electronic medical record. A list of current medications, vitals, and PMH is available there as the clinical staff outside of myself do not have access to [employer] charting during the clinic day operations. As part of providing quality comprehensive care the current medications, vitals, and PMH were reviewed in the paper chart. Assessment and Plan Assessment and Plan (1) Lumbar spondylosis: Assessment and Plan: The patient has had over 3 months of moderate to severe low back and bilateral SIJ pain with functional impairment and inadequate response to conservative care including NSAIDS (unless there are contraindication such as concurrent blood thinners), multiple oral or topical pain medications, and home exercise program/physical therapy.? Patient has completed >6 weeks of guided home exercise program and/or formal physical therapy program without relief of their symptoms.? The Oswestry Disability Index was completed, and the patient scored a 24%.? The patient noted the following:?? moderate to severe pain impacting ability to sit, walk and travel (2) Sacroiliitis: Plan at this time pt would like to defer bilateral L4-5 L5-S1 facet RFA pt interested in patient care coordinator and red light therapy for chronic pain and would like to trial this prior to additional procedures declining formal PT, continue HEP as tolerated f/u 6 weeks to evaluate pain
== END 2025-01-24 13:25 | disposition home or self-care (01) ==
LOC: PM 13:24
PROVIDERS: PCP Family Medicine; Visit Provider Nurse Practitioner
DX: M47.816 Spondylosis without myelopathy or radiculopathy, lumbar region (principal); M46.1 Sacroiliitis, not elsewhere classified
CPT/HCPCS: G0463

== ENCOUNTER 2025-03-01 14:00 | Outpatient (OUT) | payer MEDICARE, SELFPAY ==
--- NOTE | 2025-03-01 14:50 | PM.CN ---
Consult Note: HPI Data of Consult Patient: known to practice within the last 3 years Requesting Physician: Taylor Velazco NP Primary Care Provider: Thomas De Santiago MD Consult Narrative Reason for consult: f/u Narrative: Alfonso Cadena a pleasant 64 year old male presents for evaluation and management of chronic right SIJ and low back pain. longstanding hx of lumbar and SIJ pain, was evaluated by Dr Isidro who does not recommend surgical intervention. has failed 6 weeks of provider guided HEP, tylenol, heat and ice. cannot take NSAIDs due to hx of kidney nephrectomy. today low back pain 2/10 increasing to 5/10 with standing, walking, stairs, bending, work, activity. Pain improved with sitting lying sleep. since last visit has started seeing a chiropractor and engaged in red light therapy and EMP with benefit. ADRIANNA improved, 18%. cc:: CC: Taylor Velazco NP Review of Systems ROS Status of ROS 10 or more systems reviewed and unremarkable except as noted in history and below Musculoskeletal Reports: back pain; Denies: extremity pain or joint pain [facility]SH [facility] Medical History (Updated 08/16/24 @ 15:51 by Letitia Winston RN) Cancer of kidney ?C64.9 - Malignant neoplasm of unspecified kidney, except renal pelvis (ICD-10) Surgical History History of nephrectomy, left ?Z90.5 - Acquired absence of kidney (ICD-10) History of transurethral resection of prostate ?Z98.890 - Other specified postprocedural states (ICD-10) ?Z90.79 - Acquired absence of other genital organ(s) (ICD-10) Social History Smoking status: Former smoker Meds Home Medications and Allergies Home Medications ?Medication ?Instructions ?Recorded ?Confirmed ?Type allopurinol 300 mg tablet 300 mg PO DAILY 11/23/23 01/22/25 History tamsulosin 0.4 mg capsule 0.4 mg PO Q24H 11/23/23 01/22/25 History lisinopril 5 mg tablet 5 mg PO DAILY 08/10/24 01/22/25 History mirabegron 50 mg tablet,extended 50 mg PO DAILY 08/10/24 01/22/25 History release 24 hr (Myrbetriq) Allergies Allergy/AdvReac Type Severity Reaction Status Date / Time No Known Drug Allergies Allergy Verified 01/22/25 10:22 Exam Constitutional Documenting provider has reviewed patient's vital signs: yes Common normals: no apparent distress, oriented x3, healthy appearing, alert and well nourished General appearance: cooperative HENMT Common normals: normocephalic, hearing grossly normal bilaterally and moist oral mucous membranes Head and scalp: normocephalic Eye Common normals: PERRL Pupil: PERRL Neck & C-Spine Common normals: full ROM General: normal visual inspection Chest Common normals: inspection of chest normal Respiratory Common normals: normal respiratory effort, no retractions and no use of accessory muscles Back & Pelvis Lumbar spine/lower back: normal to inspection, pain with ROM and lumbar spinal tenderness; ROM not limited Sacroiliac joints: SI joint(s) abnormal Other: mildly positive bilateral linden(patricks), gaenslens, thigh thrust, compression test Neuro Common normals: oriented x3, CN's II-XII intact bilaterally, moves all extremities, no focal motor deficits, no sensory deficits noted and deep tendon reflexes 2+ bilaterally Sensorium/orientation: alert Motor exam: strength 5/5 throughout and no movement abnormalities noted Psych Common normals: mental status grossly normal, thought process normal, cooperative, affect normal, speech normal and activity/motor behavior normal Speech: normal speech Thought process: normal thought process Results Additional Findings Additional findings: If on a controlled substance or opioids, I have checked an [place] report on this patient and there are no aberrancies noted in the prescribing history.??If on a controlled substance or opioid a drug screen was completed and reviewed within the last year, and if there has not been a drug screen completed we ordered one today to monitor higher risk, state monitored pain medication use. As part of providing excellent, safe, comprehensive care, the following was completed at our patient's visit: 1. A medication reconciliation and review to ensure accurate knowledge of current/active medications, including asking our patients to inform us about any [id number] medications or herbal remedies/nutritional supplements/alternative remedies. 2. A review to specifically ensure our patients have had annual screening for screening for depression, screening for tobacco use, and screening for unhealthy alcohol use. For concerning screenings had a discussion with the patient, provided patient education, and recommended follow-up with primary care provider when appropriate. If patient noted with a risk of falling, they received education on strength, gait, and balance training to prevent future risk of falling. Portions of this note may have been carried over from the previous visit and updated as appropriate. Please note this office utilizes paper charting in addition to the electronic medical record. A list of current medications, vitals, and PMH is available there as the clinical staff outside of myself do not have access to [email or web address] charting during the clinic day operations. As part of providing quality comprehensive care the current medications, vitals, and PMH were reviewed in the paper chart. Assessment and Plan Assessment and Plan (1) Lumbar spondylosis: Assessment and Plan: The patient has had over 3 months of moderate to severe low back and bilateral SIJ pain with functional impairment and inadequate response to conservative care including NSAIDS (unless there are contraindication such as concurrent blood thinners), multiple oral or topical pain medications, and home exercise program/physical therapy.? Patient has completed >6 weeks of guided home exercise program and/or formal physical therapy program without relief of their symptoms.? The Oswestry Disability Index was completed, and the patient scored a 18%.? The patient noted the following:?? moderate to severe pain impacting ability to sit, walk and travel (2) Sacroiliitis: Plan continue customer care team coach and red light therapy PRN continue HEP as tolerated f/u PRN
== END 2025-03-01 14:01 | disposition home or self-care (01) ==
LOC: PM 14:00
PROVIDERS: PCP Family Medicine; Visit Provider Nurse Practitioner
DX: M47.816 Spondylosis without myelopathy or radiculopathy, lumbar region (principal); M46.1 Sacroiliitis, not elsewhere classified
CPT/HCPCS: G0463